=== PATIENT | male | born 1950 | race Caucasian/White ===

== ENCOUNTER 2017-10-13 10:38 | Day surgery (SDC) | payer MEDICARE ==
[2017-10-11 15:34] VITALS: BMI 32.3
[~2017-10-13 10:38] MED LIST: LACTATED RINGERS 1,000 ML IV SCH
[2017-10-13 11:59] VITALS: TEMP 97
[2017-10-13] MEDS ORDERED: LIDOCAINE 1% 20 ML VIAL (10MG/ML) FOR IV START INTRADERMA ONE (12:12)
[2017-10-13] MEDS ORDERED: LIDOCAINE 1% INJ 10MG/ML (20 ML MDV) ONE (12:38)
[2017-10-13] MEDS ORDERED: GLYCOPYRROLATE 0.2 MG/ML 2 ML VIAL ONE (12:38)
[2017-10-13] MEDS ORDERED: PROPOFOL 10 MG/ML 20 ML VIAL IV ONE (12:38)
--- NOTE | 2017-10-13 13:05 | P.PCN ---
Date of Procedure: 10/13/17 Procedure(s) Performed: BRIEF HISTORY: Patient is a 66-year-old pleasant white male, scheduled for an elective colonoscopy as a part of surveillance of long-standing history of ulcerative colitis. He is maintained on CIMZIA and continues to remain in clinical remission. PROCEDURE PERFORMED: Colonoscopy with random biopsies. PREOPERATIVE DIAGNOSIS: History of ulcerative colitis. IV sedation per Anesthesia. PROCEDURE: After informed consent was obtained, the patient, was brought into the endoscopy unit. IV sedation was administered by Anesthesia under continuous monitoring. Digital rectal examination was normal. Initially the Olympus CF- 160 flexible video colonoscope was then inserted in the rectum, gradually advanced into the cecum without any difficulty. Careful examination was performed as the scope was gradually being withdrawn. Ileocecal valve and the appendiceal orifice were visualized and appeared normal. Prep was excellent. Mucosa of the cecum, ascending colon, transverse colon, descending colon, sigmoid colon, and rectum appeared normal. Random biopsies were done from the cecum to rectum at every at 10 cm intervals. Retroflexion was performed in the rectum and no lesions were seen. The patient tolerated the procedure well. IMPRESSION: Normal-appearing colon from rectum to cecum with no evidence of active colitis or colorectal neoplasia . RECOMMENDATIONS: Findings of this examination were discussed with the patient as well as his family. He was advised to follow with the biopsy results. If the biopsy does not show any evidence of dysplasia, he can have a repeat colonoscopy in 2 years..
[2017-10-13 13:44] VITALS: BP 126/82; PULSE 52; RESP 18
== END 2017-10-13 14:06 | disposition home or self-care (01) ==
LOC: ORWHC2ENDO 10:38
PROVIDERS: ATTEND Internal Medicine Gastroenterology
DX: K51.90 Ulcerative colitis, unspecified, without complications (principal); Z79.899 Other long term (current) drug therapy
CPT/HCPCS: 88305; 45380; J2001; J2704

== ENCOUNTER → 2018-03-06 | Outpatient (CLI) | payer MEDICARE | END | disposition home or self-care (01) | LOC: LABWHC1 15:22 | PROVIDERS: ATTEND Urology | DX: N40.1 Benign prostatic hyperplasia with lower urinary tract symptoms (principal) | CPT/HCPCS: 36415; 84153 ==

== ENCOUNTER 2018-12-05 13:40 | Inpatient (IN) | payer MEDICARE, OTHER ==
[2018-12-05] MEDS ORDERED: SODIUM CHLORIDE 0.9% 500 ML 500 ML IV STA (13:45)
[2018-12-05 13:48] LABS: Glucose,Whole Blood 119 mg/dL (75-99)
--- NOTE | 2018-12-05 13:52 | ED ---
General Adult HPI - General Stated complaint: Fall Time Seen by Provider: 12/05/18 13:40 Source: RN notes reviewed - History of Present Illness Initial comments: This is a 68-year-old male who presents emergency Department after he fell through a 10 foot ceiling. Patient landed on some debris on a hard floor according to the patient he landed on his back he complains of right sided back and rib pain he also complains of right-sided abdominal pain. Patient does not believe he hit his head he denies any loss of consciousness or being days per patient currently does not complain of any neck pain. Patient also complains of left knee pain. Patient does not complain of any hip pain. Patient does not complain of back pain but posterior rib pain on the right. - Related Data Home Medications Medication Instructions Recorded Confirmed Allopurinol [Zyloprim] 300 mg PO DAILY 10/14/15 10/11/17 Baclofen [Lioresal] 10 mg PO TID 10/14/15 10/11/17 Calcium Carbonate [Calcium] 1,000 mg PO DAILY 10/14/15 10/11/17 Doxazosin Mesylate [Cardura] 4 mg PO BID 10/14/15 10/11/17 Ferrous Sulfate [Feosol] 65 mg PO DAILY 10/14/15 10/11/17 Folic Acid 1 mg PO DAILY 10/14/15 10/11/17 Glucosam/Tim-Msm1/C/Harish/Bosw 1 each PO DAILY 10/14/15 10/11/17 [Glucosamine-Chondroitin Tablet] HYDROcodone/APAP 10-325MG [[place] 1 tab PO TID PRN 10/14/15 10/11/17 10-325] Methotrexate Sodium [Methotrexate] 20 mg PO MO 10/14/15 10/11/17 Morphine Sulfate ER [Ms Contin 60 mg PO Q12HR 10/14/15 10/11/17 60Mg] Pregabalin [Lyrica] 200 mg PO BID 10/14/15 10/11/17 Ramipril 10 mg PO 1800 10/14/15 10/11/17 Simvastatin [Zocor] 80 mg PO HS 10/14/15 10/11/17 azaTHIOprine [Imuran] 50 mg PO DAILY 10/14/15 10/11/17 clonazePAM [KlonoPIN] 4 mg PO TID 10/14/15 10/11/17 rOPINIRole HCL [Requip] 4 mg PO HS 10/14/15 10/11/17 Certolizumab Pegol [Cimzia] 400 mg SQ Q30D 06/22/16 10/11/17 Previous Rx's Medication Instructions Recorded Amoxicillin/Potassium Clav 1 each PO Q12HR #20 tab 06/23/16 [Augmentin 875-125 Tablet] Allergies Allergy/AdvReac Type Severity Reaction Status Date / Time No Known Allergies Allergy Verified 12/05/18 13:50 Review of Systems ROS Statement: Those systems with pertinent positive or pertinent negative responses have been documented in the HPI. ROS Other: All systems not noted in ROS Statement are negative. 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 STEROID INJECTION KNEES LAST WEEK. COLONOSCOPY Past Anesthesia/Blood Transfusion Reactions: No Reported Reaction Past Psychological History: No Psychological Hx Reported Smoking Status: Current every day smoker Past Alcohol Use History: Daily Additional Past Alcohol Use History / Comment(s): 1 cigars daily-smoking for approx 6 mos. smoked approx <1 ppd from age 20 to age 40. 1 glass of wine daily Past Drug Use History: Marijuana Additional Drug Use History / Comment(s): Medical Marijuana card-last useD 10/10/17,uses approx 2-3 times per mos. INSTRUCTED TO REFRAIN FROM USE FOR AT LEAST 24 HOURS PRIOR TO PROCEDURE - Past Family History Mother Family Medical History: No Reported History Father Family Medical History: Myocardial Infarction (ID) General Exam - General Exam Comments Initial Comments: GENERAL: Patient is well-developed and well-nourished. Patient is nontoxic and well- hydrated and is in moderate distress. ENT: Neck is soft and supple. No significant lymphadenopathy is noted. Oropharynx is clear. Moist mucous membranes. Patient was in a C-spine are cautions EYES: The sclera were anicteric and conjunctiva were pink and moist. Extraocular movements were intact and pupils were equal round and reactive to light. Eyelids were unremarkable. PULMONARY: Unlabored respirations. Good breath sounds bilaterally. No audible rales rhonchi or wheezing was noted. CARDIOVASCULAR: Patient has a regular rate and rhythm. Patient has significant tenderness to the right lateral rib cage. Patient also has tenderness to the posterior rib cage on the right. ABDOMEN: Patient has right sided abdominal pain and right upper quadrant abdominal pain. SKIN: Skin is clear with no lesions or rashes and otherwise unremarkable. NEUROLOGIC: Patient is alert and oriented x3. Cranial nerves II through XII are grossly intact. Motor and sensory are also intact. Normal speech, volume and content. Symmetrical smile. MUSCULOSKELETAL: Patient has full range of motion of the upper extremities in the right lower extremity however patient has an effusion of the left knee and tenderness on palpation and movement. LYMPHATICS: No significant lymphadenopathy is noted PSYCHIATRIC: Normal psychiatric evaluation. Course Vital Signs 12/05/18 13:47 Temperature 98.2 F Pulse Rate 88 Respiratory 22 Rate Blood Pressure 114/77 O2 Sat by Pulse 92 L Oximetry Medical Decision Making - Medical Decision Making This was called as a green party to trauma because of mechanism and patient presentation. I spoke with Dr. Gambino shortly after I saw the patient. EKG shows sinus rhythm with occasional PVC at 89 bpm RI interval is 172 QRS is under QT interval 394 QTC is 479 per patient's EKG shows no ST segment elevation or depression. CT of the head and neck showed no acute abnormality. CT of the chest abdomen pelvis shows a right ninth rib fracture as well as a sternal slightly displaced fracture. Knee x-ray shows a distal medial femur fracture with no displacement. Patient's x-ray also shows large effusion - Lab Data Result diagrams: 12/05/18 14:20 12/05/18 14:50 Lab Results 12/05/18 12/05/18 12/05/18 Range/Units 13:47 14:20 14:20 WBC 7.6 (3.8-10.6) k/uL RBC 3.79 L (4.30-5.90) m/uL Hgb 12.6 L (13.0-17.5) gm/dL Hct 37.5 L (39.0-53.0) % MCV 99.1 (80.0-100.0) fL MCH 33.3 (25.0-35.0) pg MCHC 33.7 (31.0-37.0) g/dL RDW 17.0 H (11.5-15.5) % Plt Count 148 L (150-450) k/uL Neutrophils % 84 % Lymphocytes % 10 % Monocytes % 4 % Eosinophils % 1 % Basophils % 0 % Neutrophils # 6.4 (1.3-7.7) k/uL Lymphocytes # 0.8 L (1.0-4.8) k/uL Monocytes # 0.3 (0-1.0) k/uL Eosinophils # 0.1 (0-0.7) k/uL Basophils # 0.0 (0-0.2) k/uL Poikilocytosis Slight Anisocytosis Slight Macrocytosis Slight PT (9.0-12.0) sec INR (<1.2) APTT (22.0-30.0) sec Sodium (137-145) mmol/L Potassium (3.5-5.1) mmol/L Chloride (98-107) mmol/L Carbon Dioxide (22-30) mmol/L Anion Gap mmol/L BUN (9-20) mg/dL Creatinine (0.66-1.25) mg/dL Est GFR (CKD-EPI)AfAm (>60 ml/min/1.73 sqM) Est GFR (CKD-EPI)NonAf (>60 ml/min/1.73 sqM) Glucose (74-99) mg/dL POC Glucose (mg/dL) 119 H (75-99) mg/dL POC Glu Chief Nurse Executive ID Yasemin Silva Calcium (8.4-10.2) mg/dL Total Bilirubin (0.2-1.3) mg/dL AST (17-59) U/L ALT (21-72) U/L Alkaline Phosphatase (38-126) U/L Troponin I (0.000-0.034) ng/mL Total Protein (6.3-8.2) g/dL Albumin (3.5-5.0) g/dL Serum Alcohol mg/dL Blood Type B Positive Blood Type Recheck No Antibody Screen NEGATIVE Spec Expiration Date 12/08/2018 - 231912/05/18 12/05/18 12/05/18 Range/Units 14:48 14:50 14:50 WBC (3.8-10.6) k/uL RBC (4.30-5.90) m/uL Hgb (13.0-17.5) gm/dL Hct (39.0-53.0) % MCV (80.0-100.0) fL MCH (25.0-35.0) pg MCHC (31.0-37.0) g/dL RDW (11.5-15.5) % Plt Count (150-450) k/uL Neutrophils % % Lymphocytes % % Monocytes % % Eosinophils % % Basophils % % Neutrophils # (1.3-7.7) k/uL Lymphocytes # (1.0-4.8) k/uL Monocytes # (0-1.0) k/uL Eosinophils # (0-0.7) k/uL Basophils # (0-0.2) k/uL Poikilocytosis Anisocytosis Macrocytosis PT 10.7 (9.0-12.0) sec INR 1.0 (<1.2) APTT 23.6 (22.0-30.0) sec Sodium 140 (137-145) mmol/L Potassium 4.0 (3.5-5.1) mmol/L Chloride 104 (98-107) mmol/L Carbon Dioxide 28 (22-30) mmol/L Anion Gap 8 mmol/L BUN 15 (9-20) mg/dL Creatinine 0.66 (0.66-1.25) mg/dL Est GFR (CKD-EPI)AfAm >90 (>60 ml/min/1.73 sqM) Est GFR (CKD-EPI)NonAf >90 (>60 ml/min/1.73 sqM) Glucose 116 H (74-99) mg/dL POC Glucose (mg/dL) (75-99) mg/dL POC Glu Chief Nurse Executive ID Calcium 9.6 (8.4-10.2) mg/dL Total Bilirubin 0.8 (0.2-1.3) mg/dL AST 27 (17-59) U/L ALT 30 (21-72) U/L Alkaline Phosphatase 65 (38-126) U/L Troponin I <0.012 (0.000-0.034) ng/mL Total Protein 6.8 (6.3-8.2) g/dL Albumin 4.3 (3.5-5.0) g/dL Serum Alcohol <10 mg/dL Blood Type Blood Type Recheck Antibody Screen Spec Expiration Date Critical Care Time Critical Care Time: Yes Total Critical Care Time: 35 Disposition Clinical Impression: Sternum fx, Rib fracture, Fracture of distal end of left femur Disposition: ADMITTED IP TO THIS HOSP Time of Disposition: 15:33
--- NOTE | 2018-12-05 14:09 | XR ---
EXAMINATION TYPE: XR pelvis AP view DATE OF EXAM: 12/05/2018 CLINICAL HISTORY: Trauma fall injury with pain. TECHNIQUE: A single AP view of the pelvis is obtained. COMPARISON: None. FINDINGS: Exam noted suboptimal due to patient's large body habitus. There is no acute fracture/disl ocation evident in the pelvis. There is mild to moderate axial joint space loss in both hips. There i s some symmetric narrowing and sclerosis in both sacroiliac joints. There is partial visualization of overlying stimulator or pain device left lower quadrant . The overlying soft tissue appears unremark able. IMPRESSION: There is no acute fracture or dislocation in the pelvis.
--- NOTE | 2018-12-05 14:13 | XR ---
EXAMINATION TYPE: XR chest 1V portable DATE OF EXAM: 12/05/2018 COMPARISON: 02/28/2008 INDICATION: Trauma, fall TECHNIQUE: Single frontal view of the chest is obtained. FINDINGS: The heart size is mildly prominent. The pulmonary vasculature is prominent. The lungs are clear. Stimulator leads in the midline. No acute fractures are evident. No pneumothorax is evident. IMPRESSION: 1. Mild cardiomegaly with prominent vascular markings. 2. No acute posttraumatic changes.
--- NOTE | 2018-12-05 14:34 | CT ---
EXAMINATION TYPE: CT brain liuine wo con DATE OF EXAM: 12/05/2018 COMPARISON: NONE HISTORY: 10ft fall injury with headache and neck pain. CT DLP: 1666.9 mGycm. Automated Exposure Control for Dose Reduction was Utilized. TECHNIQUE: CT scan of the head and cervical spine are performed without contrast. FINDINGS: There is no acute intracranial hemorrhage or midline shift identified. There is ventricul ar and sulcal prominence. There is some prominence of CSF anterolateral right temporal region could r eflect arachnoid cyst coronal image 26 measuring roughly 4.5 x 1.5 cm. The calvarium is intact. Paran robby sinuses are clear. Mild mucosal thickening involving ethmoid sinuses bilaterally is present. Rem ainder paranasal sinuses are clear. Cervical spine is visualized in its entirety from C1 through upper thoracic levels and demonstrates f etal convex scoliotic curvature centered in the upper thoracic spine. Osseous structures are deminer alized. No acute fracture or dislocation is seen. Prevertebral soft tissue appears within normal limi ts. The C1-C2 articulation is within normal limits on the coronal images. Vertebral body heights are maintained. There is mild to moderate disc space narrowing C4-C5 and C5-C6 levels. Review of axial images shows multilevel uncovertebral facet degenerative changes causing mul tilevel neural foraminal narrowing for reference left C2-C3 level axial image 39 and bilateral C4-C5 level axial image 56. Additional levels are present. Thyroid gland is normal in size. Mild calcified plaque right carotid bulb is present. IMPRESSION: 1. There is no acute fracture or dislocation evident in the cervical spine. 2. No acute intracranial hemorrhage or midline shift is seen. There is moderate diffuse cerebral atro phy with probable lateral right arachnoid cyst incidentally noted.
[2018-12-05] MEDS ORDERED: HYDROmorphone 1 MG/ML 1 ML SYRINGE IVP STA (14:38)
[2018-12-05] MEDS ORDERED: ONDANSETRON 4 MG/2 ML VIAL IVP STA (14:38)
--- NOTE | 2018-12-05 14:52 | CT ---
EXAMINATION TYPE: CT ChestAbdPelvis w con DATE OF EXAM: 12/05/2018 COMPARISON: None. HISTORY: 10ft fall injury. CT DLP: 1611.4 mGycm. Automated Exposure Control for Dose Reduction was Utilized. CONTRAST: CT scan of the thorax, abdomen and pelvis is performed with IV Contrast, patient injected with 100 mL of Isovue 300. FINDINGS: Exam suboptimal due to streak artifact from bilateral upper extremities placed adjacent to patient. LUNGS: Dependent atelectasis bilateral lower lobes is present. No suspicious focal consolidation is s een. No suspicious masses are present. No pleural effusion or pneumothorax is noted. MEDIASTINUM: There are no greater than 1 cm hilar or mediastinal lymph nodes. No cardiomegaly or pe ricardial effusion is seen. There is moderate right atrial dilatation. There is 1 cm fat density les ion near level of the pericardium at level of left ventricle axial image 42 of uncertain etiology or significance LIVER/GB: There is 2.7 cm low dense round lesion right hepatic lobe near gallbladder fossa axial imag e 70 that shows some nodular peripheral enhancement. Suspect hemangioma. Liver laceration would be ex pected to have more irregular linear orientation. PANCREAS: No significant abnormality is seen. SPLEEN: No significant abnormality is seen. ADRENALS: No significant abnormality is seen. KIDNEYS: There is 3.9 cm low dense lesion laterally upper pole level right kidney with dependent calc ification approximate 75 Hounsfield units average 39. Suspect thin-walled cyst with dependent milk of calcium, solid lesion not entirely excluded. Follow-up advised. There is bilateral nephrolithiasis w ith 2 large calculi lower pole level right kidney coronal image 55 and 4-5 scattered calculi througho ut the left kidney. There is additional large calculus upper pole right kidney coronal image 74. Calc yash measure between 5 to 10 mm on long axis. No hydronephrosis is evident bilaterally. There is extra renal pelvis on the left noted. BOWEL: No significant abnormality is seen. GENITAL ORGANS: Prostate gland is enlarged in size bulging on bladder base, underlying BPH is felt pr esent.. LYMPH NODES: No greater than 1cm abdominal or pelvic lymph nodes are appreciated. OSSEOUS STRUCTURES: Osseous structures are demineralized. There is moderate narrowing of both hip rasheed nts. There is moderate multilevel spurring in the thoracolumbar spine. There is severe disc space sara rowing with endplate sclerosis L5-S1 level. There is suspected acute minimally displaced comminuted fracture through the sternal manubrium with s ome posterior indentation of the anterior wall seen best sagittal image 90, irregular fracture lines are seen best on coronal image 34. Posterior wall is fairly well maintained on sagittal images. Aguilar oclavicular joints are maintained. No suspicious adjacent hematoma at this time into the mediastinum. There is additional acute minimally displaced fracture through the lateral right ninth rib axial imag e 53. OTHER: There is large fat-containing right inguinal hernia and small to moderate sized fat-containing left inguinal hernia there is moderate calcified plaque of the abdominal aorta extending into iliac branch vessels. There is stimulator type device in the anterior left mid abdominal wall. There is add itional stimulator device in the posterior left lateral thoracic wall with leads terminating in the p osterior mid thoracic spinal canal. IMPRESSION: There is comminuted minimally displaced fracture through the sternal manubrium. No adjac ent hematoma. There is acute minimally displaced fracture through right lateral ninth rib. No adjacen t liver laceration clearly seen. Case discussed with ordering ER physician via telephone at time of dictation.
[2018-12-05 15:08] LABS: Anisocytosis Slight; Basophils % (A) 0 %; Eosinophils # (A) 0.1 k/uL (0-0.7); Eosinophils % (A) 1 %; HCT 37.5 % (39.0-53.0); HGB 12.6 gm/dL (13.0-17.5); Lymphocytes # (A) 0.8 k/uL (1.0-4.8); Lymphocytes % (A) 10 %; MCH 33.3 pg (25.0-35.0); MCHC 33.7 g/dL (31.0-37.0); MCV 99.1 fL (80.0-100.0); Macrocytosis Slight; Mean Platelet Volume 9.4; Monocytes # (A) 0.3 k/uL (0-1.0); Monocytes % (A) 4 %; Neutrophils # (A) 6.4 k/uL (1.3-7.7); Neutrophils % (A) 84 %; Platelet Count 148 k/uL (150-450); Poikilocytosis Slight; RBC 3.79 m/uL (4.30-5.90); WBC 7.6 k/uL (3.8-10.6)
[2018-12-05 15:12] LABS: ALT 30 U/L (21-72); AST 27 U/L (17-59); Albumin 4.3 g/dL (3.5-5.0); Alcohol <10 mg/dL; Alkaline Phosphatase 65 U/L (38-126); Anion Gap 8 mmol/L; Blood Urea Nitrogen 15 mg/dL (9-20); Calcium 9.6 mg/dL (8.4-10.2); Carbon Dioxide 28 mmol/L (22-30); Chloride 104 mmol/L (98-107); Glucose 116 mg/dL (74-99); Sodium 140 mmol/L (137-145); Total Bilirubin 0.8 mg/dL (0.2-1.3); Total Protein 6.8 g/dL (6.3-8.2)
--- NOTE | 2018-12-05 15:18 | XR ---
EXAMINATION TYPE: XR knee complete LT DATE OF EXAM: 12/05/2018 CLINICAL HISTORY: Pain after fall injury today. TECHNIQUE: Three views of the left knee are obtained. COMPARISON: None. FINDINGS: There is no acute fracture/dislocation evident in left knee. There is mild to moderate tri compartment joint space loss and spurring most prominent medial tibiofemoral compartment. In the prox imal tibial metaphysis medially there is lytic lesion with well-defined sclerotic margins measuring 2 .5 cm long axis favoring nonaggressive etiology such as enchondroma. Focal point tenderness at this level should be excluded to determine if further imaging workup or follow-up is necessary. Increased density suprapatellar bursa is consistent with large joint effusion. IMPRESSION: As above.
[2018-12-05 15:20] LABS: Partial Thromboplastin Time 23.6 sec (22.0-30.0); Prothrombin Time 10.7 sec (9.0-12.0)
[2018-12-05] MEDS ORDERED: SODIUM CHLORIDE 0.9% 1,000 ML IV ONE ×2 (15:23→15:33)
[2018-12-05] MEDS ORDERED: HYDROmorphone 0.5 MG/0.5 ML SYRINGE IVP STA (15:23)
[2018-12-05] MEDS ORDERED: ONDANSETRON 4 MG/2 ML VIAL IVP PRN (15:36)
--- NOTE | 2018-12-05 16:24 | P.GSCN ---
<Anika Moreira - Last Filed: 12/05/18 16:04> History of Present Illness Consult date: 12/05/18 Reason for Consult: Sternal fracture after fall, surgical recommendations Requesting physician: Everardo Cortez History of present illness: This is a 68 year old active male patient who follows on an outpatient basis with Dr. Thomas. 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 Apparently he fell earlier today from a 10 flat sealing and landed on his back. He denies any loss of consciousness. He was complains of right-sided back and rib pain. He presented to [facility] for evaluation and treatment. Chest x-ray was completed demonstrating no acute process. Computed tomography scan of the chest abdomen and pelvis was completed demonstrating a comminuted minimally displaced fracture in the sternal manubrium without adjacent hematoma, and fracture of the right ninth rib. Due to these findings a consultation was placed for Dr. Ugarte from cardiothoracic surgery for surgical recommendations. Review of Systems Review of systems was completed and was negative except as noted. 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 STEROID INJECTION KNEES LAST WEEK. COLONOSCOPY Past Anesthesia/Blood Transfusion Reactions: No Reported Reaction Past Psychological History: No Psychological Hx Reported Smoking Status: Current every day smoker Past Alcohol Use History: Daily Additional Past Alcohol Use History / Comment(s): 1 cigars daily-smoking for approx 6 mos. smoked approx <1 ppd from age 20 to age 40. 1 glass of wine daily Past Drug Use History: Marijuana Additional Drug Use History / Comment(s): Medical Marijuana card-last useD 10/10/17,uses approx 2-3 times per mos. INSTRUCTED TO REFRAIN FROM USE FOR AT LEAST 24 HOURS PRIOR TO PROCEDURE - Past Family History Mother Family Medical History: No Reported History Father Family Medical History: Myocardial Infarction ([place]) Medications and Allergies Home Medications Medication Instructions Recorded Confirmed Type Allopurinol [Zyloprim] 300 mg PO DAILY 10/14/15 12/05/18 History Doxazosin Mesylate [Cardura] 4 mg PO BID 10/14/15 12/05/18 History Ferrous Sulfate [Iron (65 MG 325 mg PO DAILY 10/14/15 12/05/18 History Elemental)] Folic Acid 1 mg PO DAILY 10/14/15 12/05/18 History Methotrexate Sodium [Methotrexate] 20 mg PO MO 10/14/15 12/05/18 History Ramipril 10 mg PO HS 10/14/15 12/05/18 History Simvastatin [Zocor] 80 mg PO HS 10/14/15 12/05/18 History azaTHIOprine [Imuran] 50 mg PO DAILY 10/14/15 12/05/18 History rOPINIRole HCL [Requip] 4 mg PO HS 10/14/15 12/05/18 History Baclofen [Lioresal] 20 mg PO TID 12/05/18 12/05/18 History Calcium 1000mg 1,000 mg PO DAILY 12/05/18 12/05/18 History Gabapentin [Neurontin] 300 mg PO TID 12/05/18 12/05/18 History Cholecalciferol [Vitamin D3] 1,000 unit PO DAILY@1200 tab 12/12/18 Rx Docusate [Colace] 100 mg PO BID cap 12/12/18 Rx HYDROcodone/APAP 10-325MG [[place] 1 tab PO TID PRN #9 tab 12/12/18 Rx 10-325] Magnesium Hydroxide [Milk of 2,400 mg PO BID ml 12/12/18 Rx Magnesia Concentrate] Polyethylene Glycol 3350 [Miralax] 17 gm PO DAILY powd.pack 12/12/18 Rx clonazePAM [KlonoPIN] 4 mg PO TID #18 tablet 12/12/18 Rx predniSONE 60 mg PO DAILY 7 Days tab 12/12/18 Rx Allergies Allergy/AdvReac Type Severity Reaction Status Date / Time No Known Allergies Allergy Verified 12/05/18 16:20 Surgical - Exam Vital Signs Temp Pulse Resp BP Pulse Ox 98.2 F 88 22 114/77 92 L 12/05/18 13:47 12/05/18 13:47 12/05/18 13:47 12/05/18 13:47 12/05/18 13:47 - General well developed, well nourished, moderate pain, obese - Eyes PERRL, normal ocular movement - ENT no hearing loss - Neck no masses, no bruits, trachea midline - Respiratory Lungs sounds clear bilaterally. Respirations even, slightly tachypneic. Currently on 2 L nasal cannula with oxygen saturation 92%. - Cardiovascular Tachycardic, sinus tach on telemetry. Palpable peripheral pulses bilaterally. No edema present. Rhythm: regular Heart Sounds: normal: S1, S2 - Abdomen Abdomen: soft, non tender, bowel sounds - Genitourinary Deferred - Rectum Deferred - Integumentary no rash, no growths - Neurologic normal coordination, normal sensation - Musculoskeletal normal posture - Psychiatric oriented to time, oriented to person, oriented to place, speech is normal, memory intact Results - Labs 12/05/18 14:20 12/05/18 14:50 Abnormal Lab Results - Last 24 Hours (Table) 12/05/18 12/05/18 12/05/18 Range/Units 13:47 14:20 14:50 RBC 3.79 L (4.30-5.90) m/uL Hgb 12.6 L (13.0-17.5) gm/dL Hct 37.5 L (39.0-53.0) % RDW 17.0 H (11.5-15.5) % Plt Count 148 L (150-450) k/uL Lymphocytes # 0.8 L (1.0-4.8) k/uL Glucose 116 H (74-99) mg/dL POC Glucose (mg/dL) 119 H (75-99) mg/dL Diabetes panel 12/05/18 Range/Units 14:50 Sodium 140 (137-145) mmol/L Potassium 4.0 (3.5-5.1) mmol/L Chloride 104 (98-107) mmol/L Carbon Dioxide 28 (22-30) mmol/L BUN 15 (9-20) mg/dL Creatinine 0.66 (0.66-1.25) mg/dL Glucose 116 H (74-99) mg/dL Calcium 9.6 (8.4-10.2) mg/dL AST 27 (17-59) U/L ALT 30 (21-72) U/L Alkaline Phosphatase 65 (38-126) U/L Total Protein 6.8 (6.3-8.2) g/dL Albumin 4.3 (3.5-5.0) g/dL Calcium panel 12/05/18 Range/Units 14:50 Calcium 9.6 (8.4-10.2) mg/dL Albumin 4.3 (3.5-5.0) g/dL Pituitary panel 12/05/18 Range/Units 14:50 Sodium 140 (137-145) mmol/L Potassium 4.0 (3.5-5.1) mmol/L Chloride 104 (98-107) mmol/L Carbon Dioxide 28 (22-30) mmol/L BUN 15 (9-20) mg/dL Creatinine 0.66 (0.66-1.25) mg/dL Glucose 116 H (74-99) mg/dL Calcium 9.6 (8.4-10.2) mg/dL Adrenal panel 12/05/18 Range/Units 14:50 Sodium 140 (137-145) mmol/L Potassium 4.0 (3.5-5.1) mmol/L Chloride 104 (98-107) mmol/L Carbon Dioxide 28 (22-30) mmol/L BUN 15 (9-20) mg/dL Creatinine 0.66 (0.66-1.25) mg/dL Glucose 116 H (74-99) mg/dL Calcium 9.6 (8.4-10.2) mg/dL Total Bilirubin 0.8 (0.2-1.3) mg/dL AST 27 (17-59) U/L ALT 30 (21-72) U/L Alkaline Phosphatase 65 (38-126) U/L Total Protein 6.8 (6.3-8.2) g/dL Albumin 4.3 (3.5-5.0) g/dL - Imaging Chest x-ray: report reviewed, image reviewed CT scan - chest: report reviewed, image reviewed EKG: image reviewed Assessment and Plan Assessment: 1. Sternal fracture after fall 2. Chronic back pain with implanted pain stimulator 3. Nerve damage from electrocution and 2008 4. History of hyperlipidemia 5. History of hypertension 6. Rheumatoid arthritis 7. Obstructive sleep apnea on CPAP use 8. Current tobacco dependence 9. Daily wine drinker 10. Occasional marijuana use Plan: The patient was seen and examined in the emergency room with Dr. Ugarte. Chart/diagnostics reviewed in detail. At this time we recommend no surgical treatment for sternal fracture, just monitoring. Pain control per primary care service. Would recommend incentive spirometry use. Increase activity as tolerated. Continued medical management of other comorbid conditions per primary care service. Will see on an as-needed basis. Thank you Dr. Cortez for this consult. Please call us with any further questions. Time with Patient: Greater than 30 <William Ugarte - Last Filed: 12/14/18 16:37> Surgical - Exam Vital Signs Temp Pulse Resp BP Pulse Ox 98.2 F 88 22 114/77 92 L 12/05/18 13:47 12/05/18 13:47 12/05/18 13:47 12/05/18 13:47 12/05/18 13:47 Results - Labs 12/10/18 07:55 12/10/18 07:55 Assessment and Plan Plan: The patient was seen and examined. The history and physical findings were verified. I agree with the above assessment and plan. The patient is a 68 year old male who was brought to the ED today s/p fall from about 10 feet. He states that he landed on his back, but CT of the chest reveals a minimally displaced fracture of the sternum along with a 9th rib fracture. There is no associated mediastinal hematoma or pneumothorax. He appears to be hemodynamically stable though he does complain of pain in his back as well as the back of his head. At this point, there is no indication for surgical intervention on my part. Recommend pain control and pulmonary toilet. Please feel free to call me with any questions.
[2018-12-05] MEDS: HYDROmorphone 0.5 MG/0.5 ML SYRINGE IVP PRN (17:10)
[2018-12-05] MEDS ORDERED: IBUPROFEN 600 MG TAB PO STA (18:50)
[2018-12-05] MEDS ORDERED: ACETAMINOPHEN TAB 500 MG TAB PO STA (18:50)
[2018-12-05 20:20] LABS: Appearance,Urine Clear (Clear); Bilirubin,Urine Negative (Negative); Blood,Urine Negative (Negative); Color,Urine Yellow; Glucose,Urine (UA) Negative (Negative); Ketones,Urine Negative (Negative); Leukocyte Esterase,Urine Negative (Negative); Nitrite,Urine Negative (Negative); Protein,Urine Negative (Negative); Urobilinogen,Urine <2.0 mg/dL (<2.0)
[2018-12-05 20:31] LABS: Amphetamine Screen,Urine Not Detected (NotDetected); Barbiturate Screen,Urine Not Detected (NotDetected); Benzodiazepines Screen,Urine Detected (NotDetected); Cocaine Screen,Urine Not Detected (NotDetected); Methadone Screen, Urine Not Detected (NotDetected); Opiate Screen,Urine Detected (NotDetected); Oxycodone Screen, Urine Not Detected (NotDetected); Phencyclidine Screen,Urine Not Detected (NotDetected); Tricyclic Antidepressant,Urine Not Detected (NotDetected); Urn Cannabinoid Scrn Detected (NotDetected)
--- NOTE | 2018-12-05 20:40 | P.GSHP ---
History of Present Illness H&P Date: 12/05/18 Chief Complaint: Fall with rib fracture and sternal fracture Patient hospitalized after falling approximately 8 feet off of a ladder. Patient presents to the ER complaining of pain in his back left knee and sternal region. Patient denies loss of consciousness. He also has mild discomfort at the site of a hematoma involving the right parietal scalp. Patient has a underl luis history of obesity hyperlipidemia hypertension arthritis ulcerative colitis and chronic pain. Patient takes multiple home medications including chronic narcotic use. Workup includes CAT scan brain and C-spine, CAT scan and chest abdomen and pelvis, chest x-ray, pelvis x-ray. Injuries again includes sternal fracture, right ninth rib fracture, parietal hematoma, possible left femur fracture. He has already been evaluated by thoracic surgery. No surgical intervention for the sternal fracture advise at this time. Patient did have a fever while he was in the ER admits to having cough and upper respiratory symptoms for the last 48 hours or so. 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 STER OID INJECTION KNEES LAST WEEK. COLONOSCOPY Past Anesthesia/Blood Transfusion Reactions: No Reported Reaction Past Psychological History: No Psychological Hx Reported Smoking Status: Current every day smoker Past Alcohol Use History: Daily Additional Past Alcohol Use History / Comment(s): 1 cigars daily-smoking for approx 6 mos. smoked approx <1 ppd from age 20 to age 40. 1 glass of wine daily Past Drug Use History: Marijuana Additional Drug Use History / Comment(s): Medical Marijuana card-last useD 10/10/17,uses approx 2-3 times per mos. INSTRUCTED TO REFRAIN FROM USE FOR AT LEAST 24 HOURS PRIOR TO PROCEDURE - Past Family History Mother Family Medical History: No Reported History Father Family Medical History: Myocardial Infarction ([place]) Medications and Allergies Home Medications Medication Instructions Recorded Confirmed Type Allopurinol [Zyloprim] 300 mg PO DAILY 10/14/15 12/05/18 History Doxazosin Mesylate [Cardura] 4 mg PO BID 10/14/15 12/05/18 History Ferrous Sulfate [Feosol] 325 mg PO DAILY 10/14/15 12/05/18 History Folic Acid 1 mg PO DAILY 10/14/15 12/05/18 History Glucosam/Tim-Msm1/C/Harish/Bosw 1 tab PO DAILY 10/14/15 12/05/18 History [Glucosamine-Chondroitin Tablet] HYDROcodone/APAP 10-325MG [[place] 1 tab PO TID PRN 10/14/15 12/05/18 History 10-325] Methotrexate Sodium [Methotrexate] 20 mg PO MO 10/14/15 12/05/18 History Morphine Sulfate ER [Ms Contin 60 mg PO Q12HR 10/14/15 12/05/18 History 60Mg] Ramipril 10 mg PO HS 10/14/15 12/05/18 History Simvastatin [Zocor] 80 mg PO HS 10/14/15 12/05/18 History azaTHIOprine [Imuran] 50 mg PO DAILY 10/14/15 12/05/18 History clonazePAM [KlonoPIN] 4 mg PO TID 10/14/15 12/05/18 History rOPINIRole HCL [Requip] 4 mg PO HS 10/14/15 12/05/18 History Certolizumab Pegol [Cimzia] 400 mg SQ Q28D 06/22/16 12/05/18 History Baclofen [Lioresal] 20 mg PO TID 12/05/18 12/05/18 History Calcium 1000mg 1,000 mg PO DAILY 12/05/18 12/05/18 History Gabapentin [Neurontin] 300 mg PO TID 12/05/18 12/05/18 History Allergies Allergy/AdvReac Type Severity Reaction Status Date / Time No Known Allergies Allergy Verified 12/05/18 16:20 Surgical - Exam Vital Signs Temp Pulse Resp BP Pulse Ox 98.2 F 88 22 114/77 92 L 12/05/18 13:47 12/05/18 13:47 12/05/18 13:47 12/05/18 13:47 12/05/18 13:47 Physical exam: General: Well-developed, well-nourished HEENT: Small hematoma involving the right posterior parietal region, sclerae nonicteric, trachea midline, no abrasions Chest: Tenderness involving the sternum and right posterior chest wall, no crepitus Abdomen: Nontender, nondistended, pain pump noted Extremities: Left knee immobilizer in place, distal pulses present, abrasions left arm Neuro: Alert and oriented Results - Labs 12/05/18 14:20 12/05/18 14:50 Abnormal Lab Results - Last 24 Hours (Table) 12/05/18 12/05/18 12/05/18 Range/Units 13:47 14:20 14:50 RBC 3.79 L (4.30-5.90) m/uL Hgb 12.6 L (13.0-17.5) gm/dL Hct 37.5 L (39.0-53.0) % RDW 17.0 H (11.5-15.5) % Plt Count 148 L (150-450) k/uL Lymphocytes # 0.8 L (1.0-4.8) k/uL Glucose 116 H (74-99) mg/dL POC Glucose (mg/dL) 119 H (75-99) mg/dL Ur Specific [place] (1.001-1.035) Urine Opiates Screen (NotDetected) U Benzodiazepines Scrn (NotDetected) U Marijuana (THC) Screen (NotDetected) 12/05/18 Range/Units 20:10 RBC (4.30-5.90) m/uL Hgb (13.0-17.5) gm/dL Hct (39.0-53.0) % RDW (11.5-15.5) % Plt Count (150-450) k/uL Lymphocytes # (1.0-4.8) k/uL Glucose (74-99) mg/dL POC Glucose (mg/dL) (75-99) mg/dL Ur Specific [place] 1.050 H (1.001-1.035) Urine Opiates Screen Detected H (NotDetected) U Benzodiazepines Scrn Detected H (NotDetected) U Marijuana (THC) Screen Detected H (NotDetected) Diabetes panel 12/05/18 Range/Units 14:50 Sodium 140 (137-145) mmol/L Potassium 4.0 (3.5-5.1) mmol/L Chloride 104 (98-107) mmol/L Carbon Dioxide 28 (22-30) mmol/L BUN 15 (9-20) mg/dL Creatinine 0.66 (0.66-1.25) mg/dL Glucose 116 H (74-99) mg/dL Calcium 9.6 (8.4-10.2) mg/dL AST 27 (17-59) U/L ALT 30 (21-72) U/L Alkaline Phosphatase 65 (38-126) U/L Total Protein 6.8 (6.3-8.2) g/dL Albumin 4.3 (3.5-5.0) g/dL Calcium panel 12/05/18 Range/Units 14:50 Calcium 9.6 (8.4-10.2) mg/dL Albumin 4.3 (3.5-5.0) g/dL Pituitary panel 12/05/18 Range/Units 14:50 Sodium 140 (137-145) mmol/L Potassium 4.0 (3.5-5.1) mmol/L Chloride 104 (98-107) mmol/L Carbon Dioxide 28 (22-30) mmol/L BUN 15 (9-20) mg/dL Creatinine 0.66 (0.66-1.25) mg/dL Glucose 116 H (74-99) mg/dL Calcium 9.6 (8.4-10.2) mg/dL Adrenal panel 12/05/18 Range/Units 14:50 Sodium 140 (137-145) mmol/L Potassium 4.0 (3.5-5.1) mmol/L Chloride 104 (98-107) mmol/L Carbon Dioxide 28 (22-30) mmol/L BUN 15 (9-20) mg/dL Creatinine 0.66 (0.66-1.25) mg/dL Glucose 116 H (74-99) mg/dL Calcium 9.6 (8.4-10.2) mg/dL Total Bilirubin 0.8 (0.2-1.3) mg/dL AST 27 (17-59) U/L ALT 30 (21-72) U/L Alkaline Phosphatase 65 (38-126) U/L Total Protein 6.8 (6.3-8.2) g/dL Albumin 4.3 (3.5-5.0) g/dL Assessment and Plan (1) Sternum fx Narrative/Plan: 68-year-old male involved in a fall from 8 feet. Patient with fractures involving sternum, ribs, left femur. Await orthopedic evaluation. Resume diet. Pulmonary toilet with incentive spirometry. Repeat chest x-ray tomorrow. Monitor fevers. Will consult Dr. Thomas who is familiar with this patient. Current Visit: Yes Status: Acute Code(s): S22.20XA - UNSP FRACTURE OF STERNUM, INIT ENCNTR FOR CLOSED FRACTURE SNOMED Code(s): 92598671
[2018-12-05] MEDS: ATORVASTATIN 40 MG TAB PO SCH (22:45)
[2018-12-05] MEDS: DOXAZOSIN 4 MG TAB PO SCH (22:45)
[2018-12-05] MEDS: LISINOPRIL 20 MG TAB PO SCH (22:45)
[2018-12-05] MEDS: GABAPENTIN 300 MG CAP PO SCH (22:45)
[2018-12-05] MEDS: BACLOFEN 10 MG TAB PO SCH (22:46)
[2018-12-05] MEDS: FAMOTIDINE 20 MG/2 ML VIAL IV SCH (22:46)
[2018-12-05] MEDS: rOPINIRole HCL 4 MG TABLET PO SCH (22:46)
[2018-12-05] MEDS: azaTHIOprine 50 MG TAB PO SCH (22:46)
[2018-12-05] MEDS: clonazePAM 1 MG TAB PO SCH (22:46)
[2018-12-06] MEDS: HEPARIN SODIUM,PORCINE 5,000 UNIT/ML 1 ML VIAL SQ SCH ×4 (00:28→23:50)
[2018-12-06] MEDS: KETOROLAC 30 MG/ML 1 ML VIAL IM SCH ×5 (00:29→23:49)
[2018-12-06] MEDS: HYDROmorphone 0.5 MG/0.5 ML SYRINGE IVP PRN ×2 (04:18→11:53)
--- NOTE | 2018-12-06 08:10 | P.CONS ---
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 He fell and suffered significant contusions including sternal fracture. He is here for appropriate pain control treatment and trauma evaluation. He hasn't underlying history of rheumatoid arthritis. No loss of consciousness as noted. He seems lucid today and is inquiring about appropriate pain control. 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 History of Any Multi-Drug Resistant Organisms: None Reported Past Surgical History: Hernia Repair Additional Past Surgical History / Comment(s): implanted pain stimulator. STEROID INJECTION KNEES. COLONOSCOPY Past Anesthesia/Blood Transfusion Reactions: No Reported Reaction Smoking Status: Current every day smoker - Past Family History Mother Family Medical History: No Reported History Additional Family Medical History / Comment(s): of alcoholism Father Family Medical History: CVA/TIA, Myocardial Infarction ([place]) Medications and Allergies Home Medications Medication Instructions Recorded Confirmed Type Allopurinol [Zyloprim] 300 mg PO DAILY 10/14/15 12/05/18 History Doxazosin Mesylate [Cardura] 4 mg PO BID 10/14/15 12/05/18 History Ferrous Sulfate [Feosol] 325 mg PO DAILY 10/14/15 12/05/18 History Folic Acid 1 mg PO DAILY 10/14/15 12/05/18 History Glucosam/Tim-Msm1/C/Harish/Bosw 1 tab PO DAILY 10/14/15 12/05/18 History [Glucosamine-Chondroitin Tablet] HYDROcodone/APAP 10-325MG [[place] 1 tab PO TID PRN 10/14/15 12/05/18 History 10-325] Methotrexate Sodium [Methotrexate] 20 mg PO MO 10/14/15 12/05/18 History Morphine Sulfate ER [Ms Contin 60 mg PO Q12HR 10/14/15 12/05/18 History 60Mg] Ramipril 10 mg PO HS 10/14/15 12/05/18 History Simvastatin [Zocor] 80 mg PO HS 10/14/15 12/05/18 History azaTHIOprine [Imuran] 50 mg PO DAILY 10/14/15 12/05/18 History clonazePAM [KlonoPIN] 4 mg PO TID 10/14/15 12/05/18 History rOPINIRole HCL [Requip] 4 mg PO HS 10/14/15 12/05/18 History Certolizumab Pegol [Cimzia] 400 mg SQ Q28D 06/22/16 12/05/18 History Baclofen [Lioresal] 20 mg PO TID 12/05/18 12/05/18 History Calcium 1000mg 1,000 mg PO DAILY 12/05/18 12/05/18 History Gabapentin [Neurontin] 300 mg PO TID 12/05/18 12/05/18 History Allergies Allergy/AdvReac Type Severity Reaction Status Date / Time No Known Allergies Allergy Verified 12/05/18 16:20 Physical Exam Vitals: Vital Signs Temp Pulse Pulse Resp BP BP Pulse Ox 12/06/18 06:48 98.7 F 69 18 122/73 96 12/06/18 04:20 82 18 120/69 95 12/06/18 00:35 99.0 F 80 18 109/73 95 12/05/18 22:10 70 18 115/71 95 12/05/18 21:03 100 F H 90 18 119/75 93 L 12/05/18 20:00 100.2 F H 90 18 125/70 96 12/05/18 13:47 98.2 F 88 22 114/77 92 L Intake and Output 12/05/18 12/06/18 12/06/18 22:59 06:59 14:59 Other: Voiding Method Urinal # Voids 0 Weight 125 kg - Constitutional General appearance: mild distress - EENT Eyes: EOMI - Neck Neck: no lymphadenopathy - Respiratory Respiratory: bilateral: CTA - Cardiovascular Rhythm: regular Heart sounds: normal: S1, S2 Abnormal Heart Sounds: no S3 Gallop - Gastrointestinal General gastrointestinal: soft, no tenderness - Integumentary Integumentary: no cellulitis - Neurologic Neurologic: CNII-XII intact - Psychiatric Psychiatric: A&O x's 3, appropriate affect Results CBC & Chem 7: 12/05/18 14:20 12/05/18 14:50 Labs: Abnormal Lab Results - Last 24 Hours (Table) 12/05/18 12/05/18 12/05/18 Range/Units 13:47 14:20 14:50 RBC 3.79 L (4.30-5.90) m/uL Hgb 12.6 L (13.0-17.5) gm/dL Hct 37.5 L (39.0-53.0) % RDW 17.0 H (11.5-15.5) % Plt Count 148 L (150-450) k/uL Lymphocytes # 0.8 L (1.0-4.8) k/uL Glucose 116 H (74-99) mg/dL POC Glucose (mg/dL) 119 H (75-99) mg/dL Ur Specific [place] (1.001-1.035) Urine Opiates Screen (NotDetected) U Benzodiazepines Scrn (NotDetected) U Marijuana (THC) Screen (NotDetected) 12/05/18 Range/Units 20:10 RBC (4.30-5.90) m/uL Hgb (13.0-17.5) gm/dL Hct (39.0-53.0) % RDW (11.5-15.5) % Plt Count (150-450) k/uL Lymphocytes # (1.0-4.8) k/uL Glucose (74-99) mg/dL POC Glucose (mg/dL) (75-99) mg/dL Ur Specific [place] 1.050 H (1.001-1.035) Urine Opiates Screen Detected H (NotDetected) U Benzodiazepines Scrn Detected H (NotDetected) U Marijuana (THC) Screen Detected H (NotDetected) Assessment and Plan (1) Rheumatoid arthritis Current Visit: Yes Status: Acute Code(s): M06.9 - RHEUMATOID ARTHRITIS, UNSPECIFIED SNOMED Code(s): 62476754 (2) Hypertension Current Visit: Yes Status: Acute Code(s): I10 - ESSENTIAL (PRIMARY) HYPERTENSION SNOMED Code(s): 71906588 (3) Hyperlipidemia Current Visit: Yes Status: Acute Code(s): E78.5 - HYPERLIPIDEMIA, UN SPECIFIED SNOMED Code(s): 87679509 (4) BPH (benign prostatic hyperplasia) Current Visit: Yes Status: Acute Code(s): N40.0 - BENIGN PROSTATIC HYPERPLASIA WITHOUT LOWER URINRY TRACT SYMP SNOMED Code(s): 720072189 (5) Sternum fx Current Visit: Yes Status: Acute Code(s): S22.20XA - UNSP FRACTURE OF STERNUM, INIT ENCNTR FOR CLOSED FRACTURE SNOMED Code(s): 94249433 Plan: Reconcile home medications. Pain control. Appreciate input from multiple surgical services. We will continue to follow. Time with Patient: Greater than 30
[2018-12-06] MEDS: FAMOTIDINE 20 MG/2 ML VIAL IV SCH (08:48)
[2018-12-06] MEDS: clonazePAM 1 MG TAB PO SCH ×3 (08:49→20:51)
[2018-12-06] MEDS: GABAPENTIN 300 MG CAP PO SCH ×3 (08:49→20:50)
[2018-12-06] MEDS: ALLOPURINOL 300 MG TAB PO SCH (08:49)
[2018-12-06] MEDS: BACLOFEN 10 MG TAB PO SCH ×3 (08:49→20:50)
[2018-12-06] MEDS: FERROUS SULFATE 325 MG TAB PO SCH (08:49)
[2018-12-06] MEDS: CALCIUM CARBONATE 500 MG CHEWABLE PO SCH (08:49)
[2018-12-06] MEDS: azaTHIOprine 50 MG TAB PO SCH (08:50)
--- NOTE | 2018-12-06 09:46 | P.PN ---
<Bernadette Benedict Dao - Last Filed: 12/06/18 09:38> Subjective Progress Note Date: 12/06/18 CHIEF COMPLAINT: Fall HISTORY OF PRESENT ILLNESS: Patient examined at the bedside this morning. He is awake and alert. Complains of left knee pain and right rib pain. He reports his pain is tolerable at this time. He appears comfortable. Tolerating diet. Denies nausea or vomiting. Denies headache. Using IS and pulling 1500cc. PHYSICAL EXAM: VITAL SIGNS: Reviewed. GENERAL: Well-developed in no acute distress. HEENT: No sclera icterus. Extraocular movements grossly intact. Moist buccal mucosa. Small hematoma of right parietal region. ABDOMEN: Soft. Nondistended. Nontender. NEUROLOGIC: Alert and oriented. Cranial nerves II through XII grossly intact. EXTREMITIES: Left knee immobilizer in place. Abrasions to left arm. ASSESSMENT: 1. Trauma, s/p fall from ladder 2. Sternal fracture 3. Right 9th rib fracture 4. Possible left femur fracture PLAN: CTS on consult. No surgical intervention recommended Pain control Incentive spirometry Continue current diet Await orthopedic consultation Nurse practitioner note has been reviewed by physician. Signing provider agrees with the documented findings, assessment, and plan of care. Objective - Vital Signs Vital signs: Vital Signs Temp 97.1 F L 12/06/18 08:00 Pulse 85 12/06/18 08:00 Resp 20 12/06/18 08:00 BP 97/55 12/06/18 08:00 Pulse Ox 93 L 12/06/18 08:00 Intake & Output 12/05/18 12/06/18 12/06/18 18:59 06:59 18:59 Weight 124.738 kg 125 kg Other: Voiding Method Urinal # Voids 0 - Labs CBC & Chem 7: 12/05/18 14:20 12/05/18 14:50 Labs: Abnormal Lab Results - Last 24 Hours (Table) 12/05/18 12/05/18 12/05/18 Range/Units 13:47 14:20 14:50 RBC 3.79 L (4.30-5.90) m/uL Hgb 12.6 L (13.0-17.5) gm/dL Hct 37.5 L (39.0-53.0) % RDW 17.0 H (11.5-15.5) % Plt Count 148 L (150-450) k/uL Lymphocytes # 0.8 L (1.0-4.8) k/uL Glucose 116 H (74-99) mg/dL POC Glucose (mg/dL) 119 H (75-99) mg/dL Ur Specific [place] (1.001-1.035) Urine Opiates Screen (NotDetected) U Benzodiazepines Scrn (NotDetected) U Marijuana (THC) Screen (NotDetected) 12/05/18 Range/Units 20:10 RBC (4.30-5.90) m/uL Hgb (13.0-17.5) gm/dL Hct (39.0-53.0) % RDW (11.5-15.5) % Plt Count (150-450) k/uL Lymphocytes # (1.0-4.8) k/uL Glucose (74-99) mg/dL POC Glucose (mg/dL) (75-99) mg/dL Ur Specific [place] 1.050 H (1.001-1.035) Urine Opiates Screen Detected H (NotDetected) U Benzodiazepines Scrn Detected H (NotDetected) U Marijuana (THC) Screen Detected H (NotDetected) <Colin Gambino - Last Filed: 12/06/18 18:47> Subjective As above. Patient feels better than he did last night. Still having mild chest and leg pain. Also complaining of low back pain and right shoulder pain. We'll check x-rays right shoulder. We'll defer evaluation of low back pain to orthopedics. Continue diet as tolerated. Gradually work with physical therapy. Objective - Vital Signs Vital signs: Vital Signs Temp 98.7 F 12/06/18 15:23 Pulse 66 12/06/18 15:23 Resp 16 12/06/18 15:23 BP 104/64 12/06/18 15:23 Pulse Ox 96 12/06/18 15:23 Intake & Output 12/05/18 12/06/18 12/06/18 18:59 06:59 18:59 Intake Total 1800 Output Total 400 Balance 1400 Weight 124.738 kg 125 kg Intake: IV 600 Sodium Chloride 0.9% 1, 600 000 ml @ 75 mls/hr IV . [id number] ONE Rx#:[id number] Oral 1200 Output: Urine 400 Other: Voiding Method Urinal # Voids 0 - Labs CBC & Chem 7: 12/05/18 14:20 12/05/18 14:50 Labs: Abnormal Lab Results - Last 24 Hours (Table) 12/05/18 Range/Units 20:10 Ur Specific [place] 1.050 H (1.001-1.035) Urine Opiates Screen Detected H (NotDetected) U Benzodiazepines Scrn Detected H (NotDetected) U Marijuana (THC) Screen Detected H (NotDetected) Assessment and Plan (1) Sternum fx Current Visit: Yes Status: Acute Code(s): S22.20XA - UNSP FRACTURE OF STERNUM, INIT ENCNTR FOR CLOSED FRACTURE SNOMED Code(s): 62184390
--- NOTE | 2018-12-06 10:38 | P.CNOR ---
History of Present Illness - [facility] Consult date: 12/06/18 Consult reason: fracture (Left distal femur fracture, sternal fracture) History of present illness: This is a 68-year-old male who presented to the emergency department last evening after falling approximately 8 feet from a ladder and sustained injury to his left leg and chest. He denies loss of consciousness. He states that he did hit his head, however. He is admitted to general surgery and we're consulted for orthopedic evaluation. He is a known patient of Dr. Shen Seymour. 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 History of Any Multi-Drug Resistant Organisms: None Reported Past Surgical History: Hernia Repair Additional Past Surgical History / Comment(s): implanted pain stimulator. STEROID INJECTION KNEES. COLONOSCOPY Past Anesthesia/Blood Transfusion Reactions: No Reported Reaction Smoking Status: Current every day smoker - Past Family History Mother Family Medical History: No Reported History Additional Family Medical History / Comment(s): of alcoholism Father Family Medical History: CVA/TIA, Myocardial Infarction ([place]) Medications and Allergies Home Medications Medication Instructions Recorded Confirmed Type Allopurinol [Zyloprim] 300 mg PO DAILY 10/14/15 12/05/18 History Doxazosin Mesylate [Cardura] 4 mg PO BID 10/14/15 12/05/18 History Ferrous Sulfate [Feosol] 325 mg PO DAILY 10/14/15 12/05/18 History Folic Acid 1 mg PO DAILY 10/14/15 12/05/18 History Glucosam/Tim-Msm1/C/Harish/Bosw 1 tab PO DAILY 10/14/15 12/05/18 History [Glucosamine-Chondroitin Tablet] HYDROcodone/APAP 10-325MG [[place] 1 tab PO TID PRN 10/14/15 12/05/18 History 10-325] Methotrexate Sodium [Methotrexate] 20 mg PO MO 10/14/15 12/05/18 History Morphine Sulfate ER [Ms Contin 60 mg PO Q12HR 10/14/15 12/05/18 History 60Mg] Ramipril 10 mg PO HS 10/14/15 12/05/18 History Simvastatin [Zocor] 80 mg PO HS 10/14/15 12/05/18 History azaTHIOprine [Imuran] 50 mg PO DAILY 10/14/15 12/05/18 History clonazePAM [KlonoPIN] 4 mg PO TID 10/14/15 12/05/18 History rOPINIRole HCL [Requip] 4 mg PO HS 10/14/15 12/05/18 History Certolizumab Pegol [Cimzia] 400 mg SQ Q28D 06/22/16 12/05/18 History Baclofen [Lioresal] 20 mg PO TID 12/05/18 12/05/18 History Calcium 1000mg 1,000 mg PO DAILY 12/05/18 12/05/18 History Gabapentin [Neurontin] 300 mg PO TID 12/05/18 12/05/18 History Allergies Allergy/AdvReac Type Severity Reaction Status Date / Time No Known Allergies Allergy Verified 12/05/18 16:20 Physical Examination This is a 68-year-old male in no acute distress. He is alert and oriented 3. Exam of the head neck reveal no obvious deformity. He has full cervical spine motion without difficulty or pain. Exam of the upper extremities is unremarkable. He has fairly good shoulder, elbow, wrist and finger motion bilaterally. Neurovascular status to the upper extremities is intact. Exam of the lower extremities reveals a 3+ effusion to the left knee. No erythema or ecchymosis. There is pain on palpation about the anterior, medial and lateral aspect of the knee. No pain with motion of the hips. Right knee exam is unremarkable. I am unable to evaluate the ligaments of the left knee secondary to pain and swelling. Full foot and ankle motion bilaterally. Neurovascular status to the lower extremities intact. Results X-rays of the right knee reveal a nondisplaced subtle fracture about the medial condyle femur. Moderate degenerative changes throughout the knee. No obvious displaced fractures noted. CT of the chest reveals a minimally displaced, comminuted manubrium fracture. There is also a right-sided night lateral rib fracture with mild displacement. Pelvis x-rays show no bony abnormality or fracture. - Labs Labs: Abnormal Lab Results - Last 24 Hours (Table) 12/05/18 12/05/18 12/05/18 Range/Units 13:47 14:20 14:50 RBC 3.79 L (4.30-5.90) m/uL Hgb 12.6 L (13.0-17.5) gm/dL Hct 37.5 L (39.0-53.0) % RDW 17.0 H (11.5-15.5) % Plt Count 148 L (150-450) k/uL Lymphocytes # 0.8 L (1.0-4.8) k/uL Glucose 116 H (74-99) mg/dL POC Glucose (mg/dL) 119 H (75-99) mg/dL Ur Specific [place] (1.001-1.035) Urine Opiates Screen (NotDetected) U Benzodiazepines Scrn (NotDetected) U Marijuana (THC) Screen (NotDetected) 12/05/18 Range/Units 20:10 RBC (4.30-5.90) m/uL Hgb (13.0-17.5) gm/dL Hct (39.0-53.0) % RDW (11.5-15.5) % Plt Count (150-450) k/uL Lymphocytes # (1.0-4.8) k/uL Glucose (74-99) mg/dL POC Glucose (mg/dL) (75-99) mg/dL Ur Specific [place] 1.050 H (1.001-1.035) Urine Opiates Screen Detected H (NotDetected) U Benzodiazepines Scrn Detected H (NotDetected) U Marijuana (THC) Screen Detected H (NotDetected) H & H 12/05/18 Range/Units 14:20 Hgb 12.6 L (13.0-17.5) gm/dL Hct 37.5 L (39.0-53.0) % Coagulation 12/05/18 Range/Units 14:48 INR 1.0 (<1.2) Result Diagrams: 12/05/18 14:20 12/05/18 14:50 Assessment and Plan (1) History of fall from ladder Current Visit: Yes Status: Acute Code(s): Z78.9 - OTHER SPECIFIED HEALTH STATUS SNOMED Code(s): 574995891 (2) Fracture of distal end of left femur Current Visit: Yes Status: Acute Code(s): S72.402A - UNSP FRACTURE OF LOWER END OF LEFT FEMUR, INIT FOR CLOS FX SNOMED Code(s): 079343582 (3) Rib fracture Current Visit: Yes Status: Acute Code(s): S22.39XA - FRACTURE OF ONE RIB, UNSP SIDE, INIT FOR CLOS FX SNOMED Code(s): 13608685 (4) Sternum fx Current Visit: Yes Status: Acute Code(s): S22.20XA - UNSP FRACTURE OF STERNUM, INIT ENCNTR FOR CLOSED FRACTURE SNOMED Code(s): 11381278 Plan: The clinical and x-ray findings are discussed the patient. The left knee is aspirated, obtaining 110 mL of blood. The patient is placed back into his knee immobilizer. He may be up with physical therapy if cleared medically. It is recommended he is a walker. He is toe-touch weightbearing to the left lower extremity. He is to follow-up in one week with orthopedics.
[2018-12-06] MEDS: DOXAZOSIN 4 MG TAB PO SCH ×2 (10:50→20:50)
[2018-12-06] MEDS ORDERED: SODIUM CHLORIDE 0.9% 500 ML 500 ML IV ONE (11:12)
--- NOTE | 2018-12-06 16:02 | XR ---
EXAMINATION TYPE: XR chest 2V DATE OF EXAM: 12/06/2018 COMPARISON: Chest x-ray and CT from yesterday. HISTORY: Fall injury with rib fractures. TECHNIQUE: Frontal and lateral views of the chest are obtained. FINDINGS: There is new left basilar linear atelectasis. There are new tiny bilateral pleural effusio ns on lateral view. The cardiac silhouette size remains enlarged though no cardiomegaly is seen on C T. Lateral lower rib fractures less well seen on x-ray versus CT. No pneumothorax is evident. Spinal stimulator device redemonstrated. IMPRESSION: New tiny bilateral pleural effusions and left basilar linear atelectasis.
[2018-12-06] MEDS: rOPINIRole HCL 4 MG TABLET PO SCH (20:50)
[2018-12-06] MEDS: LISINOPRIL 20 MG TAB PO SCH (20:50)
[2018-12-06] MEDS: ATORVASTATIN 40 MG TAB PO SCH (20:50)
[2018-12-06] MEDS: FAMOTIDINE 20 MG TAB PO SCH (20:51)
[2018-12-07] MEDS: HYDROmorphone 0.5 MG/0.5 ML SYRINGE IVP PRN ×4 (03:19→20:30)
[2018-12-07] MEDS: KETOROLAC 30 MG/ML 1 ML VIAL IM SCH ×3 (06:23→18:22)
[2018-12-07 07:25] LABS: Basophils % (A) 1 %; Eosinophils # (A) 0.3 k/uL (0-0.7); Eosinophils % (A) 7 %; HCT 32.6 % (39.0-53.0); HGB 10.8 gm/dL (13.0-17.5); Lymphocytes # (A) 0.9 k/uL (1.0-4.8); Lymphocytes % (A) 19 %; MCH 33.9 pg (25.0-35.0); MCHC 33.2 g/dL (31.0-37.0); Macrocytosis Slight; Mean Platelet Volume 7.9; Monocytes # (A) 0.3 k/uL (0-1.0); Monocytes % (A) 6 %; Neutrophils # (A) 3.1 k/uL (1.3-7.7); Neutrophils % (A) 65 %; Platelet Count 156 k/uL (150-450); RDW 15.9 % (11.5-15.5); WBC 4.8 k/uL (3.8-10.6)
--- NOTE | 2018-12-07 07:41 | XR ---
EXAMINATION TYPE: XR shoulder limited RT DATE OF EXAM: 12/07/2018 CLINICAL HISTORY: Right shoulder pain after fall TECHNIQUE: 2 views of the right shoulder are obtained. COMPARISON: None. FINDINGS: There is no acute fracture/dislocation evident in the right shoulder. The acromioclavicul ar and glenohumeral joint spaces appear within normal limits. The visualized ribs are intact and unr emarkable. There is a noncomminuted fracture of the posterior lateral margin of rib 5 on the right. IMPRESSION: There is no acute fracture or dislocation in the right shoulder. The known right lateral comminuted rib fracture of rib 9 is not seen however nondisplaced fracture of the posterior lateral rib 5 is appreciated.
[2018-12-07 07:56] LABS: Anion Gap 2 mmol/L; Blood Urea Nitrogen 23 mg/dL (9-20); Calcium 8.4 mg/dL (8.4-10.2); Carbon Dioxide 31 mmol/L (22-30); Chloride 106 mmol/L (98-107); Glucose 93 mg/dL (74-99); Potassium 4.3 mmol/L (3.5-5.1); Sodium 139 mmol/L (137-145)
[2018-12-07] MEDS: GABAPENTIN 300 MG CAP PO SCH ×3 (07:56→20:33)
[2018-12-07] MEDS: clonazePAM 1 MG TAB PO SCH ×3 (07:56→20:32)
[2018-12-07] MEDS: CALCIUM CARBONATE 500 MG CHEWABLE PO SCH (07:56)
[2018-12-07] MEDS: FERROUS SULFATE 325 MG TAB PO SCH (07:57)
[2018-12-07] MEDS: DOXAZOSIN 4 MG TAB PO SCH ×2 (07:57→20:33)
[2018-12-07] MEDS: FAMOTIDINE 20 MG TAB PO SCH ×2 (07:57→20:33)
[2018-12-07] MEDS: HEPARIN SODIUM,PORCINE 5,000 UNIT/ML 1 ML VIAL SQ SCH ×2 (07:57→16:49)
[2018-12-07] MEDS: ALLOPURINOL 300 MG TAB PO SCH (07:57)
[2018-12-07] MEDS: BACLOFEN 10 MG TAB PO SCH ×3 (07:58→20:33)
[2018-12-07] MEDS: HYDROcodone/APAP 10-325MG 1 EACH TAB PO PRN (08:03)
--- NOTE | 2018-12-07 08:58 | P.PN ---
Subjective Progress Note Date: 12/07/18 Principal diagnosis: Multiple trauma, status post fall from ladder This is a 68-year-old male whom we're following regarding his multiple injuries after falling from a ladder. He has no complaints today of increased low back pain, upper extremity weakness and right knee pain. He also complains of intermittent numbness and tingling to the hands. He states that his left knee is feeling better since the aspiration of 110 mL of blood from the knee yesterday. Physical therapy is at bedside today. They tried to get him up which did not go well. He rates his current pain 03/30. Objective - Vital Signs Vital signs: Vital Signs Temp 98.3 F 12/07/18 08:00 Pulse 63 12/07/18 08:00 Resp 16 12/07/18 08:00 BP 90/53 12/07/18 08:00 Pulse Ox 94 L 12/07/18 08:00 Intake & Output 12/06/18 12/07/18 12/07/18 18:59 06:59 18:59 Intake Total 1800 240 Output Total 400 400 Balance 1400 -400 240 Weight 127 kg Intake: IV 600 Sodium Chloride 0.9% 1, 600 000 ml @ 75 mls/hr IV . [id number] ONE Rx#:[id number] Oral 1200 240 Output: Urine 400 400 - Exam This is a pleasant 60-year-old male in no acute distress. He is alert and oriented 3. Exam of the head neck reveal no obvious deformity. There is only slight limitation in cervical rotation. There is minimal pain with palpation about cervical spine. Slight paracervical tenderness on the left. Exam of the upper extremities reveal fairly good shoulder, elbow, wrist and finger motion. He is unable to sustain his arms overhead for more than about 10-15 seconds. Financial Supervisor strength is weak bilaterally, with the left weaker than the right. Exam of the low back reveals tenderness about the lower lumbar region today. Exam of the lower extremities reveals knee immobilizer in place on the left. He has full foot and ankle motion on the left. He is able to straight leg raise with pain on the left. Exam of the right lower extremity reveals 1-2+ joint effusion of the knee. Patient is unable to lift the leg off the bed independently. He is unable to sustain extension when leg is lifted off the bed. He is able to actively flex his knee to 90 in bed. There is no deformity noted at the quadricep or patellar tendons. There is minimal pain on palpation about the knee. Pedal pulses are +2/4 bilaterally. - Labs CBC & Chem 7: 12/07/18 06:45 12/07/18 06:45 Labs: Abnormal Lab Results - Last 24 Hours (Table) 12/07/18 12/07/18 Range/Units 06:45 06:45 RBC 3.20 L (4.30-5.90) m/uL Hgb 10.8 L (13.0-17.5) gm/dL Hct 32.6 L (39.0-53.0) % MCV 102.0 H (80.0-100.0) fL RDW 15.9 H (11.5-15.5) % Lymphocytes # 0.9 L (1.0-4.8) k/uL Carbon Dioxide 31 H (22-30) mmol/L BUN 23 H (9-20) mg/dL Assessment and Plan (1) History of fall from ladder Current Visit: Yes Status: Acute Code(s): Z78.9 - OTHER SPECIFIED HEALTH STA TUS SNOMED Code(s): 925784323 (2) Fracture of distal end of left femur Current Visit: Yes Status: Acute Code(s): S72.402A - UNSP FRACTURE OF LOWER END OF LEFT FEMUR, INIT FOR CLOS FX SNOMED Code(s): 296404131 (3) Rib fracture Current Visit: Yes Status: Acute Code(s): S22.39XA - FRACTURE OF ONE RIB, UNSP SIDE, INIT FOR CLOS FX SNOMED Code(s): 48534967 (4) Sternum fx Current Visit: Yes Status: Acute Code(s): S22.20XA - UNSP FRACTURE OF STERNUM, INIT ENCNTR FOR CLOSED FRACTURE SNOMED Code(s): 06920078 Plan: The clinical and x-ray findings are discussed the patient. X-ray of the shoulder is reviewed which shows no evidence of fracture or dislocation. Computed tomography scan of the pelvis is again reviewed focusing on images of the lumbar spine. There is slight irregularity to the L4 vertebrae which may represent a subtle compression deformity which is consistent with his area of pain. I have reviewed the case with our spine service. We have also discussed his upper extremity and right lower extremity weakness. I have asked Dr. Arriola to review his x-rays and CTs. I do not believe the patient can have an MRI secondary to his neural stimulator in his low back. My immediate concern is that he may possibly have a myelopathic issue developing. I've consult Dr. Arriola for further evaluation. For right now I would keep him bed to chair transfer secondary to his weakness. I have ordered x-rays of the right knee to be sure that there are no bony injuries to his home for his weakness. We will continue to follow.
[2018-12-07] MEDS: azaTHIOprine 50 MG TAB PO SCH (09:03)
--- NOTE | 2018-12-07 09:24 | P.PN ---
Subjective Principal diagnosis: Status post fall with sternal contusion and rib fractures. The patient is feeling more overall pain from his fall from a ladder. Multiple consultants including surgery and orthopedics are appreciated. No voiding difficulties. No significant nausea, vomiting or diarrhea. Pain control seems to be nominal for him. Objective - Vital Signs Vital signs: Vital Signs Temp 98.3 F 12/07/18 08:00 Pulse 63 12/07/18 08:00 Resp 16 12/07/18 08:00 BP 90/53 12/07/18 08:00 Pulse Ox 94 L 12/07/18 08:00 Intake & Output 12/06/18 12/07/18 12/07/18 18:59 06:59 18:59 Intake Total 1800 240 Output Total 400 400 Balance 1400 -400 240 Weight 127 kg Intake: IV 600 Sodium Chloride 0.9% 1, 600 000 ml @ 75 mls/hr IV . [id number] ONE Rx#:[id number] Oral 1200 240 Output: Urine 400 400 - Constitutional General appearance: Present: average body habitus, cooperative - EENT Eyes: Absent: abnormal pupil - Neck Neck: Absent: lymphadenopathy - Respiratory Respiratory: bilateral: CTA - Cardiovascular Rhythm: regular Heart sounds: normal: S1, S2 Abnormal Heart Sounds: Absent: S3 Gallop - Gastrointestinal General gastrointestinal: Present: soft. Absent: tenderness - Integumentary Integumentary: Absent: cyanotic - Musculoskeletal Musculoskeletal: Present: gait normal - Labs CBC & Chem 7: 12/07/18 06:45 12/07/18 06:45 Labs: Abnormal Lab Results - Last 24 Hours (Table) 12/07/18 12/07/18 Range/Units 06:45 06:45 RBC 3.20 L (4.30-5.90) m/uL Hgb 10.8 L (13.0-17.5) gm/dL Hct 32.6 L (39.0-53.0) % MCV 102.0 H (80.0-100.0) fL RDW 15.9 H (11.5-15.5) % Lymphocytes # 0.9 L (1.0-4.8) k/uL Carbon Dioxide 31 H (22-30) mmol/L BUN 23 H (9-20) mg/dL Assessment and Plan (1) Rheumatoid arthritis Current Visit: Yes Status: Acute Code(s): M06.9 - RHEUMATOID ARTHRITIS, UNSPECIFIED SNOMED Code(s): 62036208 (2) Hypertension Current Visit: Yes Status: Acute Code(s): I10 - ESSENTIAL (PRIMARY) HYPERTENSION SNOMED Code(s): 06498601 (3) Hyperlipidemia Current Visit: Yes Status: Acute Code(s): E78.5 - HYPERLIPIDEMIA, UNSPECIFIED SNOMED Code(s): 07567117 (4) BPH (benign prostatic hyperplasia) Current Visit: Yes Status: Acute Code(s): N40.0 - BENIGN PROSTATIC HYPERPLASIA WITHOUT LOWER URINRY TRACT SYMP SNOMED Code(s): 572888655 (5) Sternum fx Current Visit: Yes Status: Acute Code(s): S22.20XA - UNSP FRACTURE OF STERNUM, INIT ENCNTR FOR CLOSED FRACTURE SNOMED Code(s): 95125062 Plan: Continue current pain control. Again, appreciate orthopedic referral. Hopefully we can get him cleared for rehabilitation. Discharge planning for possible ECF. Dr. Messer's group Route covering for the weekend.
--- NOTE | 2018-12-07 09:59 | P.PN ---
<Bernadette Benedict - Last Filed: 12/07/18 09:57> Subjective Progress Note Date: 12/07/18 CHIEF COMPLAINT: Fall HISTORY OF PRESENT ILLNESS: Patient examined at the bedside this morning. He is awake and alert. Pain is tolerable, he reports increased back pain and right knee pain. Underwent left knee aspiration yesterday. Ortho evaluated patient this morning and xrays of right knee ordered. PHYSICAL EXAM: VITAL SIGNS: Reviewed. GENERAL: Well-developed in no acute distress. HEENT: No sclera icterus. Extraocular movements grossly intact. Moist buccal mucosa. Small hematoma of right parietal region. ABDOMEN: Soft. Nondistended. Nontender. NEUROLOGIC: Alert and oriented. Cranial nerves II through XII grossly intact. EXTREMITIES: Left knee immobilizer in place. Abrasions to left arm. ASSESSMENT: 1. Trauma, s/p fall from ladder 2. Sternal fracture 3. Right 9th rib fracture 4. Possible left femur fracture PLAN: CTS on consult. No surgical intervention recommended Pain control Incentive spirometry Continue current diet Orthopedics on consult. Await results of right knee xray. Nurse practitioner note has been reviewed by physician. Signing provider agrees with the documented findings, assessment, and plan of care. Objective - Vital Signs Vital signs: Vital Signs Temp 98.3 F 12/07/18 08:00 Pulse 63 12/07/18 08:00 Resp 16 12/07/18 08:00 BP 90/53 12/07/18 08:00 Pulse Ox 94 L 12/07/18 08:00 Intake & Output 12/06/18 12/07/18 12/07/18 18:59 06:59 18:59 Intake Total 1800 240 Output Total 400 400 Balance 1400 -400 240 Weight 127 kg Intake: IV 600 Sodium Chloride 0.9% 1, 600 000 ml @ 75 mls/hr IV . [id number] ONE Rx#:[id number] Oral 1200 240 Output: Urine 400 400 - Labs CBC & Chem 7: 12/07/18 06:45 12/07/18 06:45 Labs: Abnormal Lab Results - Last 24 Hours (Table) 12/07/18 12/07/18 Range/Units 06:45 06:45 RBC 3.20 L (4.30-5.90) m/uL Hgb 10.8 L (13.0-17.5) gm/dL Hct 32.6 L (39.0-53.0) % MCV 102.0 H (80.0-100.0) fL RDW 15.9 H (11.5-15.5) % Lymphocytes # 0.9 L (1.0-4.8) k/uL Carbon Dioxide 31 H (22-30) mmol/L BUN 23 H (9-20) mg/dL <Colin Gambino - Last Filed: 12/07/18 15:01> Subjective As above. Patient says he feels about the same today. His back pain is improved. Case discussed with both orthopedics and spine surgery. Steroid sta rted for possible mild neuropraxia. Continue diet as tolerated. Continue pulmonary toilet and incentive spirometry. Continue physical therapy. May need outpatient versus inpatient rehab. Objective - Vital Signs Vital signs: Vital Signs Temp 98.3 F 12/07/18 08:00 Pulse 58 L 12/07/18 11:40 Resp 16 12/07/18 11:42 BP 93/63 12/07/18 11:40 Pulse Ox 96 12/07/18 11:40 Intake & Output 12/06/18 12/07/18 12/07/18 18:59 06:59 18:59 Intake Total 1800 480 Output Total 400 400 Balance 1400 -400 480 Weight 127 kg Intake: IV 600 Sodium Chloride 0.9% 1, 600 000 ml @ 75 mls/hr IV . [id number] ONE Rx#:[id number] Oral 1200 480 Output: Urine 400 400 Other: Voiding Method Urinal - Labs CBC & Chem 7: 12/07/18 06:45 12/07/18 06:45 Labs: Abnormal Lab Results - Last 24 Hours (Table) 12/07/18 12/07/18 Range/Units 06:45 06:45 RBC 3.20 L (4.30-5.90) m/uL Hgb 10.8 L (13.0-17.5) gm/dL Hct 32.6 L (39.0-53.0) % MCV 102.0 H (80.0-100.0) fL RDW 15.9 H (11.5-15.5) % Lymphocytes # 0.9 L (1.0-4.8) k/uL Carbon Dioxide 31 H (22-30) mmol/L BUN 23 H (9-20) mg/dL Assessment and Plan (1) Sternum fx Current Visit: Yes Status: Acute Code(s): S22.20XA - UNSP FRACTURE OF STERNUM, INIT ENCNTR FOR CLOSED FRACTURE SNOMED Code(s): 63051754
--- NOTE | 2018-12-07 10:14 | XR ---
EXAMINATION TYPE: XR knee complete RT DATE OF EXAM: 12/07/2018 CLINICAL HISTORY: Right knee pain after fall TECHNIQUE: Three views of the right knee are obtained. COMPARISON: None. FINDINGS: There is no acute fracture/dislocation evident in right knee. The tri-compartment joint s paces demonstrate very mild medial compartment joint space narrowing and small tricompartmental osteo phytes. Generalized osseous demineralization is seen. Mild atherosclerosis is noted. Very small circu lar joint effusion is also seen. The overlying soft tissue appears unremarkable. IMPRESSION: There is no acute fracture or dislocation in the right knee.
--- NOTE | 2018-12-07 12:14 | XR ---
EXAMINATION TYPE: XR chest 2V DATE OF EXAM: 12/07/2018 COMPARISON: 12/06/2018 HISTORY: Shortness of breath TECHNIQUE: Frontal and lateral views of the chest are obtained. FINDINGS: Trace bilateral pleural effusions are seen. Cardia mediastinal silhouette is enlarged. Min imal left basilar subsegmental atelectasis is redemonstrated. The known rib fractures are better seen on CT. No pneumothorax. The cardiac silhouette size is within normal limits. The osseous structure s are intact. Spinal nerve root stimulator is noted. IMPRESSION: Stable trace pleural effusions, enlarged cardiac mediastinal silhouette and left basilar subsegmental atelectasis. The known rib fractures are better seen on CT.
[2018-12-07] MEDS: LISINOPRIL 20 MG TAB PO SCH (20:32)
[2018-12-07] MEDS: rOPINIRole HCL 4 MG TABLET PO SCH (20:33)
[2018-12-07] MEDS: ATORVASTATIN 40 MG TAB PO SCH (20:33)
[2018-12-08] MEDS: HEPARIN SODIUM,PORCINE 5,000 UNIT/ML 1 ML VIAL SQ SCH ×3 (00:36→17:07)
[2018-12-08] MEDS: HYDROmorphone 0.5 MG/0.5 ML SYRINGE IVP PRN ×5 (05:12→20:38)
[2018-12-08] MEDS: clonazePAM 1 MG TAB PO SCH ×3 (08:54→20:35)
[2018-12-08] MEDS: predniSONE 20 MG TAB PO SCH (08:54)
[2018-12-08] MEDS: CALCIUM CARBONATE 500 MG CHEWABLE PO SCH (08:55)
[2018-12-08] MEDS: FAMOTIDINE 20 MG TAB PO SCH ×2 (08:55→20:37)
[2018-12-08] MEDS: HYDROcodone/APAP 10-325MG 1 EACH TAB PO PRN ×2 (08:56→17:00)
[2018-12-08] MEDS: ALLOPURINOL 300 MG TAB PO SCH (08:56)
[2018-12-08] MEDS: BACLOFEN 10 MG TAB PO SCH ×3 (08:57→20:47)
[2018-12-08] MEDS: FERROUS SULFATE 325 MG TAB PO SCH (08:57)
[2018-12-08] MEDS: GABAPENTIN 300 MG CAP PO SCH ×3 (08:57→20:37)
[2018-12-08] MEDS: DOXAZOSIN 4 MG TAB PO SCH ×2 (08:59→20:38)
[2018-12-08] MEDS: azaTHIOprine 50 MG TAB PO SCH (09:08)
--- NOTE | 2018-12-08 10:57 | P.CNOR ---
History of Present Illness - [facility] Consult date: 12/07/18 Requesting physician: Anika Reaves Consult reason: low back pain (L4 compression fracture deformity), neck pain, other (Upper extremity weakness) History of present illness: Patient is a very pleasant 68-year-old male who is seen and examined at the bedside after consultation was placed for increased cervical pain and right upper extremity weakness. Patient has been being seen and examined for other orthopedic injuries after sustaining a fall from a ladder. He denies loss of conscious at that time. He did hit his head. Separate from the cervical spine and upper extremities, he had been experiencing pain at his left knee, right knee, lumbar spine, and sternum. He was found to have a leftt subtle fracture of the left medial condylar femur. He was also found to have a minimally displaced comminuted manubrium fracture. He is in a knee immobilizer for the left lower extremity. Prior to physical examination today, x-rays have been taken of the right shoulder and right knee. Patient states he has pain in the posterior cervical spine with pain radiating over the right trapezius towards the shoulder. He has noticed some increasing weakness of the right biceps. 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 He denies any other recent injuries other than his significant fall from a ladder. He is also been experiencing increased low back pain following the fall. He does have known chronic pain in his lumbar spine. He has history of neurostimulator battery placement. He is also previously had a pain pump placed. He does not feel he be able to tolerate bracing due to his pain pump placement. He has a past medical history which includes hyperlipidemia, hypertension, rheumatoid arthritis, and sleep apnea. 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 History of Any Multi-Drug Resistant Organisms: None Reported Past Surgical History: Hernia Repair Additional Past Surgical History / Comment(s): implanted pain stimulator. STEROID INJECTION KNEES. COLONOSCOPY Past Anesthesia/Blood Transfusion Reactions: No Reported Reaction Smoking Status: Current every day smoker - Past Family History Mother Family Medical History: No Reported History Additional Family Medical History / Comment(s): of alcoholism Father Family Medical History: CVA/TIA, Myocardial Infarction ([place]) Medications and Allergies Home Medications Medication Instructions Recorded Confirmed Type Allopurinol [Zyloprim] 300 mg PO DAILY 10/14/15 12/05/18 History Doxazosin Mesylate [Cardura] 4 mg PO BID 10/14/15 12/05/18 History Ferrous Sulfate [Feosol] 325 mg PO DAILY 10/14/15 12/05/18 History Folic Acid 1 mg PO DAILY 10/14/15 12/05/18 History Glucosam/Tim-Msm1/C/Harish/Bosw 1 tab PO DAILY 10/14/15 12/05/18 History [Glucosamine-Chondroitin Tablet] HYDROcodone/APAP 10-325MG [[place] 1 tab PO TID PRN 10/14/15 12/05/18 History 10-325] Methotrexate Sodium [Methotrexate] 20 mg PO MO 10/14/15 12/05/18 History Morphine Sulfate ER [Ms Contin 60 mg PO Q12HR 10/14/15 12/05/18 History 60Mg] Ramipril 10 mg PO HS 10/14/15 12/05/18 History Simvastatin [Zocor] 80 mg PO HS 10/14/15 12/05/18 History azaTHIOprine [Imuran] 50 mg PO DAILY 10/14/15 12/05/18 History clonazePAM [KlonoPIN] 4 mg PO TID 10/14/15 12/05/18 History rOPINIRole HCL [Requip] 4 mg PO HS 10/14/15 12/05/18 History Certolizumab Pegol [Cimzia] 400 mg SQ Q28D 06/22/16 12/05/18 History Baclofen [Lioresal] 20 mg PO TID 12/05/18 12/05/18 History Calcium 1000mg 1,000 mg PO DAILY 12/05/18 12/05/18 History Gabapentin [Neurontin] 300 mg PO TID 12/05/18 12/05/18 History Allergies Allergy/AdvReac Type Severity Reaction Status Date / Time No Known Allergies Allergy Verified 12/05/18 16:20 Physical Examination Physical exam: Patient is awake, alert, and oriented 3 Vital signs stable Good chest excursion with deep inspiration and expiration Evidence of pain pump placement over the left anterior abdomen Examination of the cervical spine reveals skin is intact with no abrasions, lacerations, or bruises; no erythema, purulence or signs of infection Significant pain on palpation over the posterior inferior cervical spine and over the right trapezius towards the shoulder Full range of motion of the cervical spine with adequate flexion, extension, and bilateral rotation 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, thumb strength, interosseous strength, biceps strength, triceps strength, and shoulder strength positive sustained bilaterally Patient is able to perform active range of motion of bilateral shoulders without significant difficulty Right upper extremity motor strength is 4/5 with breakaway strength including biceps Motor strength in the upper extremity is 3+/[address] maintenance supervisor bilaterally Significant pain at the right ribs with active range of motion of the right shoulder Examination of lumbar spine reveals skin is intact with no abrasions, lacerations, or bruises; no erythema, purulence or signs of infection Evidence of 2 well-healed incisions just laterally to the midline along the lower lumbar spine Pain with palpation along the midline of the lower lumbar spine Dorsiflexion, plantarflexion, and extensor hallucis longus positive sustained bilaterally Knee immobilizer intact left lower extremity Results Pertinent studies: X-ray of the left knee taken on 12/05/2018: Nondisplaced subtle fracture at the medial condyle; moderate degenerative changes throughout the left knee; no obvious displaced fracture noted CT of the chest, abdomen, pelvis taken on 12/05/2018: Minimally displaced comminuted manubrium fracture; right sided 9th lateral rib fracture with displacement; L4 superior endplate compression fracture deformity of indeterminate age evidence of neurostimulator placement; evidence of metallic object of the anterior abdomen that correlates well with patient's pain pump placement; evidence neurostimulator battery placement CT of the head and cervical spine taken on 12/05/2018: C4-5 and C5-6 spinal canal stenosis and degenerative disc disease; multilevel facet degenerative changes; no acute fracture dislocation within the cervical spine; no acute intracranial hemorrhage or midline shift seen; moderate diffuse cerebral atrophy; Pelvis x-ray taken on 12/05/2018: No bony abnormality or fracture X-ray of the right knee taken on 12/07/2018: No acute fracture dislocation in the right knee; tricompartmental joint space demonstrated very mild medial compartment joint space narrowing with small tract compartmental osteophytes X-ray the right shoulder taken on 12/07/2018: No acute fracture dislocation to the right shoulder; known right lateral comminuted rib fracture at rib #9 is not visible however nondisplaced fracture posterior lateral rib #5 is appreciated - Labs Labs: H & H 12/05/18 12/07/18 Range/Units 14:20 06:45 Hgb 12.6 L 10.8 L (13.0-17.5) gm/dL Hct 37.5 L 32.6 L (39.0-53.0) % Coagulation 12/05/18 Range/Units 14:48 INR 1.0 (<1.2) Result Diagrams: 12/07/18 06:45 12/07/18 06:45 Assessment and Plan Assessment: Assessment: Cervical pain Right upper extremity radiculopathy Bilateral upper extremity weakness C4-5 and C5-6 spinal canal stenosis C4-5 and C5-6 degenerative disc disease Cervical facet degenerative change Recent fall from ladder Multiple right-sided rib fractures at rib 5 and rib 9 Left nondisplaced subtle fracture at the medial condyle Minimally displaced comminuted manubrium fracture Right knee pain Low back pain L4 vertebral body compression fracture History of pain pump placement History of neurostimulator placement with battery History of Hyperlipidemia History of hypertension History of rheumatoid arthritis History of sleep apnea (1) Cervical pain Current Visit: Yes Status: Acute Code(s): M54.2 - CERVICALGIA SNOMED Code(s): 45217051 (2) Radiculopathy affecting upper extremity Current Visit: Yes Status: Acute Code(s): M54.10 - RADICULOPATHY, SITE U NSPECIFIED SNOMED Code(s): 70233892 (3) Weakness of both upper extremities Current Visit: Yes Status: Acute Code(s): R29.898 - OTH SYMPTOMS AND SIGNS INVOLVING THE MUSCULOSKELETAL SYSTEM SNOMED Code(s): 289964631 (4) Cervical stenosis of spinal canal Current Visit: Yes Status: Acute Code(s): M48.02 - SPINAL STENOSIS, CERVICAL REGION SNOMED Code(s): 26060473 (5) Degenerative disc disease, cervical Current Visit: Yes Status: Acute Code(s): M50.30 - OTHER CERVICAL DISC DEGENERATION, UNSP CERVICAL REGION SNOMED Code(s): 36617952 (6) Facet arthropathy, cervical Current Visit: Yes Status: Acute Code(s): M47.812 - SPONDYLOSIS W/O MYELOPATHY OR RADICULOPATHY, CERVICAL REGION SNOMED Code(s): 731438372 (7) Fracture of distal end of left femur Current Visit: Yes Status: Acute Code(s): S72.402A - UNSP FRACTURE OF LOWER END OF LEFT FEMUR, INIT FOR CLOS FX SNOMED Code(s): 098855877 (8) History of fall from ladder Current Visit: Yes Status: Acute Code(s): Z78.9 - OTHER SPECIFIED HEALTH STATUS SNOMED Code(s): 033469418 (9) Hyperlipidemia Current Visit: Yes Status: Acute Code(s): E78.5 - HYPERLIPIDEMIA, UNSPECIFIED SNOMED Code(s): 88866849 (10) Hypertension Current Visit: Yes Status: Acute Code(s): I10 - ESSENTIAL (PRIMARY) HYPERTENSION SNOMED Code(s): 92969687 (11) Rheumatoid arthritis Current Visit: Yes Status: Acute Code(s): M06.9 - RHEUMATOID ARTHRITIS, UNSPECIFIED SNOMED Code(s): 72298919 (12) Rib fracture Current Visit: Yes Status: Acute Code(s): S22.39XA - FRACTURE OF ONE RIB, UNSP SIDE, INIT FOR CLOS FX SNOMED Code(s): 42795713 (13) Sternum fx Current Visit: Yes Status: Acute Code(s): S22.20XA - UNSP FRACTURE OF YEUNG UM, INIT ENCNTR FOR CLOSED FRACTURE SNOMED Code(s): 03969788 Plan: Plan: 1. After reviewing of imaging, further discussion with Dr. Forrest Arriola, physical examination of the patient, and further discussion with the patient and his family, we'll currently planned to continue with conservative treatment in both regards to his cervical spine and lumbar spine. He has sustained multiple injuries following his recent fall off a ladder. He will continue with conservative treatment as prescribed previously in regards to his sternal fracture, right-sided rib fractures, and left knee medial condylar fracture. In regards to his cervical spine, he does have degenerative changes with stenosis and degenerative disc disease at C4-5 and C5-6. 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 He experiences some radiculopathy s ymptoms with pain radiating to the cervical spine over the right shoulder. He is unable to have a cervical MRI due to his previous neurostimulator placement. At this time, he will be prescribed prednisone 60 mg daily to see if this will help improve his symptoms. We are not currently planning for acute surgical intervention cervical spine. We also discussed some of his pain towards the shoulder could be due to his right-sided rib fractures as his pain is exacerbated with movements of the right shoulder. In regards to his exacerbated low back pain and L4 compression fracture deformity, we will also continue with conservative treatment. He has a pain pump in place over the left anterior abdomen. We did not feel he could tolerate bracing at this time. Patient does not feel he would tolerate bracing either. We discussed he should avoid excessive bending, twisting, lifting and should avoid excessive activities in regard to his lumbar spine. We will continue to follow patient closely during his admission to the hospital. 2. Patient will continue to be seen and examined by other medical providers including trauma and medicine Time with Patient: Greater than 30 (Including obtaining history, physical examination, reviewing of imaging, and dictation.)
--- NOTE | 2018-12-08 12:03 | P.PN ---
Progress Note - Text Progress Note Date: 12/08/18 Patient is a very pleasant 68-year-old male who is seen and examined at the bedside by Dr. Forrest Arriola and myself for follow-up evaluation in regards to his cervical pain and right upper extremity weakness. Patient has been being seen and examined for other orthopedic injuries after sustaining a fall from a ladder. He denies loss of conscious at that time. He did hit his head. Separate from the cervical spine and upper extremities, he had been experiencing pain at his left knee, right knee, lumbar spine, and sternum. He was found to have a left subtle fracture of the left medial condylar femur. He was also found to have a minimally displaced comminuted manubrium fracture. He is in a knee immobilizer for the left lower extremity. He has remained nonweightbearing on the left lower extremity. Since being seen in exam and yesterday he has been transferred to [facility]. His symptoms continue to be present but does feel he has had some better control of his symptoms. He continues to experience pain in the posterior cervical spine with pain radiating over the right trapezius towards the shoulder. 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 He has significant right posterior shoulder pain as well. He denies any other recent injuries other than his significant fall from a ladder. He continues to experience increased low back pain following the fall. He does have known chronic pain in his lumbar spine. He has history of neurostimulator battery placement. He is also previously had a pain pump placed. He does not feel he be able to tolerate bracing due to his pain pump placement. He has a past medical history which includes hyperlipidemia, hypertension, rheumatoid arthritis, and sleep apnea. Physical exam: Patient is awake, alert, and oriented 3 Vital signs stable Good chest excursion with deep inspiration and expiration Evidence of pain pump placement over the left anterior abdomen Examination of the cervical spine reveals skin is intact with no abrasions, lacerations, or bruises; no erythema, purulence or signs of infection Significant pain on palpation over the posterior inferior cervical spine and over the right trapezius towards the shoulder Significant pain with palpation with evidence of bruising over the right posterior shoulder Full range of motion of the cervical spine with adequate flexion, extension, and bilateral rotation Moving Worker strength, thumb strength, interosseous strength, biceps strength, triceps strength, and shoulder strength positive sustained bilaterally Patient is able to perform active range of motion of bilateral shoulders without significant difficulty Right upper extremity motor strength is 4/5 with breakaway strength including biceps Motor strength in the upper extremity is 3+/5 including salt operator bilaterally Significant pain at the right ribs with active range of motion of the right shoulder Examination of lumbar spine reveals skin is intact with no abrasions, lacerations, or bruises; no erythema, purulence or signs of infection Evidence of 2 well-healed incisions just laterally to the midline along the lower lumbar spine Pain with palpation along the midline of the lower lumbar spine Dorsiflexion, plantarflexion, and extensor hallucis longus positive sustained bilaterally Knee immobilizer intact left lower extremity Pertinent studies: X-ray of the left knee taken on 12/05/2018: Nondisplaced subtle fracture at the medial condyle; moderate degenerative changes throughout the left knee; no obvious displaced fracture noted CT of the chest, abdomen, pelvis taken on 12/05/2018: Minimally displaced comminuted manubrium fracture; right sided 9th lateral rib fracture with displacement; L4 superior endplate compression fracture deformity of indeterminate age evidence of neurostimulator placement; evidence of metallic object of the anterior abdomen that correlates well with patient's pain pump placement; evidence neurostimulator battery placement CT of the head and cervical spine taken on 12/05/2018: C4-5 and C5-6 spinal canal stenosis and degenerative disc disease; multilevel facet degenerative changes; no acute fracture dislocation within the cervical spine; no acute intracranial hemorrhage or midline shift seen; moderate diffuse cerebral atrophy; Pelvis x-ray taken on 12/05/2018: No bony abnormality or fracture X-ray of the right knee taken on 12/07/2018: No acute fracture dislocation in the right knee; tricompartmental joint space demonstrated very mild medial compartment joint space narrowing with small tract compartmental osteophytes X-ray the right shoulder taken on 12/07/2018: No acute fracture dislocation to the right shoulder; known right lateral comminuted rib fracture at rib #9 is not visible however nondisplaced fracture posterior lateral rib #5 is appreciated Assessment: Cervical pain Right upper extremity radiculopathy Bilateral upper extremity weakness C4-5 and C5-6 spinal canal stenosis C4-5 and C5-6 degenerative disc disease Cervical facet degenerative change Recent fall from ladder Right posterior shoulder pain with bruising Multiple right-sided rib fractures at rib 5 and rib 9 Left nondisplaced subtle fracture at the medial condyle Minimally displaced comminuted manubrium fracture Right knee pain Low back pain L4 vertebral body compression fracture History of pain pump placement History of neurostimulator placement with battery History of Hyperlipidemia History of hypertension History of rheumatoid arthritis History of sleep apnea Plan: 1. Patient has been seen and examined at the bedside by myself and Dr. Forrest Arriola. We will continue conservative treatment as set forth previously in both regards to his cervical spine and lumbar spine. He has sustained multiple injuries following his recent fall off a ladder. He will continue with conservative treatment as prescribed previously in regards to his sternal fracture, right-sided rib fractures, and left knee medial condylar fracture. He will keep his knee immobilizer intact to the left lower extremity. He will remain strict nonweightbearing on the left lower extremity. In regards to his cervical spine, he does have degenerative changes with stenosis and degenerative disc disease at C4-5 and C5-6. 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 He experiences some radiculopathy symptoms with pain radiating to the cervical spine over the right shoulder. He is unable to have a cervical MRI due to his previous neurostimulator placement. At this time, he will insinuate to receive prednisone 60 mg daily to see if this will help improve his symptoms. We are not currently planning for acute surgical intervention cervical spine. He does continue to have significant pain in his right shoulder has some posterior bruising of the right shoulder after his recent fall. We'll prescribe him a right upper extremity sling which he may wear for comfort support as needed for his right upper extremity. In regards to his exacerbated low back pain and L4 compression fracture deformity, we will continue with conservative treatment. He has a pain pump in place over the left anterior abdomen. We did not feel he could tolerate bracing at this time. Patient does not feel he would tolerate bracing either. We discussed he should avoid excessive bending, twisting, lifting and should avoid excessive activities in regard to his lumbar spine. We will continue to follow patient closely during his admission to the hospital. 2. Patient will continue to be seen and examined by other medical providers including trauma and medicine
--- NOTE | 2018-12-08 15:17 | P.PN ---
Subjective Progress Note Date: 12/08/18 CHIEF COMPLAINT: Status post fall with sternal fracture, rib fractures HISTORY OF PRESENT ILLNESS: The patient is a 68-year-old gentleman who presented as a fall from a ladder with resultant injuries including sternal fracture, rib fractures, femur fractures. Reports being in bed since his hospitalization however today, he is now out of bed and sitting in a chair. He reported initially some left shoulder pain including knee pain and has a knee immobilizer. He's tolerating diet. He has not had a bowel movement. He surrounded by friends and family. "I feel much better since been here." He is using his incentive spirometer 10 times per hour. ROS: No reports of nausea and vomiting. No bowel movements. No fevers or chills. No new chest pain. No productive sputum PHYSICAL EXAM: VITAL SIGNS: Reviewed CONSTITUTIONAL: Well developed and in no acute distress. EYES: Conjuctivae without sclera icterus. Extraocular movements grossly intact. HEAD, EARS, NOSE, THROAT: Moist buccal mucosa. Head is atraumatic, normocephalic. Hears conversational speech. No nasal drainage. NECK: Supple. No thyroidomegaly. RESPIRATORY: Non-labored respirations and equal bilateral excursions. CARDIOVASCULAR: Palpable 2+ radial pulses. ABDOMEN: Soft. Non-tender with ascites. MUSCULOSKELETAL: No gross deformity of the lower extremities noted. No clubbing. No cyanosis. Knee mobilizer along the left knee. SKIN: Good skin turgor. Well perfused. Multiple small lacerations along the left forearm superficial NEUROLOGIC: Cranial nerves I through XII grossly intact. No focal or lateralizing signs. PSYCH: Appropriate affect. Alert and oriented to person, place and time. CLINCAL LABS: Reviewed with acute drop of hemoglobin 2 g in 3 days. RADIOLOGY: Report reviewed. Multiple rib fractures including lumbar compression fracture ASSESSMENT: 1. Status post fall from ladder resulting in multiple right sided for fractures 2. Rheumatoid arthritis 3. Chronic pain PLAN: 1. He has risk for constipation and will start stool softener and laxative 2. He has multiple orthopedic issues for which orthopedic team is following. At this time no surgical intervention identified. 3. He has baseline chronic pain needs which further complicates his acute pain and will need close management with his primary care provider Objective - Vital Signs Vital signs: Vital Signs Temp 98.3 F 04/20/19 13:28 Pulse 71 12/08/18 13:28 Resp 16 12/08/18 13:28 BP 106/58 12/08/18 13:28 Pulse Ox 97 12/08/18 13:28 Intake & Output 12/07/18 12/08/18 12/08/18 18:59 06:59 18:59 Intake Total 480 Balance 480 Intake: Oral 480 Other: Voiding Method Urinal Urinal Urinal # Voids 1 3 - Labs CBC & Chem 7: 12/07/18 06:45 12/07/18 06:45 Assessment and Plan (1) Multiple fractures of ribs, right side, initial encounter for closed fracture Current Visit: Yes Status: Acute Code(s): S22.41XA - MULTIPLE FRACTURES OF RIBS, RIGHT SIDE, INIT FOR CLOS FX SNOMED Code(s): 20648884 (2) Sternal manubrial dissociation, initial encounter for closed fracture Current Visit: Yes Status: Acute Code(s): S22.23XA - STERNAL MANUBRIAL DISSOCIATION, INIT FOR CLOS FX SNOMED Code(s): 16535187 (3) Chronic pain due to trauma Current Visit: Yes Status: Acute Code(s): G89.21 - CHRONIC PAIN DUE TO TRAUMA SNOMED Code(s): 966601777 (4) Cervical stenosis of spinal canal Current Visit: Yes Status: Acute Code(s): M48.02 - SPINAL STENOSIS, CERVICAL REGION SNOMED Code(s): 35897578 (5) Degenerative disc disease, cervical Current Visit: Yes Status: Acute Code(s): M50.30 - OTHER CERVICAL DISC DEGENERATION, UNSP CERVICAL REGION SNOMED Code(s): 43548077 (6) History of fall from ladder Current Visit: Yes Status: Acute Code(s): Z78.9 - OTHER SPECIFIED HEALTH STATUS SNOMED Code(s): 798465444 (7) Hypertension Current Visit: Yes Status: Acute Code(s): I10 - ESSENTIAL (PRIMARY) HYPERTENSION SNOMED Code(s): 76628348 (8) Rheumatoid arthritis Current Visit: Yes Status: Acute Code(s): M06.9 - RHEUMATOID ARTHRITIS, UNSPECIFIED SNOMED Code(s): 59086506 (9) Sternum fx Current Visit: Yes Status: Acute Code(s): S22.20XA - UNSP FRACTURE OF STERNUM, INIT ENCNTR FOR CLOSED FRACTURE SNOMED Code(s): 53547792 (10) Kidney stones Current Visit: Yes Status: Acute Code(s): N20.0 - CALCULUS OF KIDNEY SNOMED Code(s): 02484716 (11) Inguinal hernia Current Visit: Yes Status: Acute Code(s): K40.90 - UNIL INGUINAL HERNIA, W/O OBST OR GANGR, NOT SPCF RECUR SNOMED Code(s): 671861597
[2018-12-08] MEDS: POLYETHYLENE GLYCOL 3350 17 GM POWD.PACK PO SCH (16:57)
[2018-12-08] MEDS: DOCUSATE 100 MG CAP PO SCH (16:57)
[2018-12-08] MEDS: LISINOPRIL 20 MG TAB PO SCH (20:36)
[2018-12-08] MEDS: rOPINIRole HCL 4 MG TABLET PO SCH (20:37)
[2018-12-08] MEDS: ATORVASTATIN 40 MG TAB PO SCH (20:37)
[2018-12-09] MEDS: HEPARIN SODIUM,PORCINE 5,000 UNIT/ML 1 ML VIAL SQ SCH ×4 (00:07→22:39)
[2018-12-09] MEDS: HYDROmorphone 0.5 MG/0.5 ML SYRINGE IVP PRN ×6 (00:13→23:51)
[2018-12-09] MEDS: BACLOFEN 10 MG TAB PO SCH ×3 (08:04→22:37)
[2018-12-09] MEDS: clonazePAM 1 MG TAB PO SCH ×3 (08:04→22:35)
[2018-12-09] MEDS: FAMOTIDINE 20 MG TAB PO SCH ×2 (08:05→22:39)
[2018-12-09] MEDS: ALLOPURINOL 300 MG TAB PO SCH (08:05)
[2018-12-09] MEDS: CALCIUM CARBONATE 500 MG CHEWABLE PO SCH (08:05)
[2018-12-09] MEDS: DOCUSATE 100 MG CAP PO SCH ×2 (08:05→22:39)
[2018-12-09] MEDS: GABAPENTIN 300 MG CAP PO SCH ×3 (08:05→22:38)
[2018-12-09] MEDS: POLYETHYLENE GLYCOL 3350 17 GM POWD.PACK PO SCH (08:06)
[2018-12-09] MEDS: DOXAZOSIN 4 MG TAB PO SCH ×2 (08:06→22:23)
[2018-12-09] MEDS: azaTHIOprine 50 MG TAB PO SCH (08:06)
[2018-12-09] MEDS: predniSONE 20 MG TAB PO SCH (08:06)
[2018-12-09] MEDS: FERROUS SULFATE 325 MG TAB PO SCH (08:06)
--- NOTE | 2018-12-09 10:36 | P.PN ---
Subjective Progress Note Date: 12/08/18 Principal diagnosis: Status post fall from ladder with sternal contusion and rib fractures Patient is is seen and examined at the bedside; orthopedic consultation was jean marie gloria for increased cervical pain and right upper extremity weakness. Separate from the cervical spine and upper extremities, he had been experiencing pain at his left knee, right knee, lumbar spine, and sternum. He was found to have a left subtle fracture of the left medial condylar femur. He was also found to have a minimally displaced comminuted manubrium fracture. He is in a knee immobilizer for the left lower extremity. Prior to physical examination today, x-rays have been taken of the right shoulder and right knee. Patient states he has pain in the posterior cervical spine with pain radiating over the right trapezius towards the shoulder. He has noticed some increasing weakness of the right biceps. 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 He denies any other recent injuries other than his significant fall from a ladder. He is also been experiencing increased low back pain following the fall. He does have known chronic pain in his lumbar spine. He has history of neurostimulator battery placement. He is also previously had a pain pump placed. He does not feel he be able to tolerate bracing due to his pain pump placement. 12/08/2018 Patient has been evaluated by orthopedic surgery and is recommended conservative treatment in regards to cervical spine and lumbar spine; sternal and rib fractures and left knee medial condyle fracture; patient does have degenerative changes with stenosis and degenerative disc disease at the level of C4-5 and C5 and 6 with some weakness and range of motion of right upper extremity; possible radiculopathy; patient cannot have cervical MRI due to stimulator placement in the past; orthopedic is recommending prednisone 60 mg daily at this time with no plan for acute surgical intervention Patient also has L4 compression fracture deformity which is also recommended to be treated conservatively Patient has a pain pump over left anterior abdomen; recommendations are to continue with current pain management and possible clearance for rehabilitation for discharge to SNF/ECF Objective - Vital Signs Vital signs: Vital Signs Temp 98.2 F 12/08/18 05:00 Pulse 65 12/08/18 05:00 Resp 18 12/08/18 05:00 BP 106/69 12/08/18 05:00 Pulse Ox 93 L 12/08/18 05:00 Intake & Output 12/07/18 12/08/18 12/08/18 18:59 06:59 18:59 Intake Total 480 Balance 480 Intake: Oral 480 Other: Voiding Method Urinal Urinal Urinal # Voids 1 - Exam GENERAL: Well-developed in no acute distress. HEENT: No sclera icterus. Extraocular movements grossly intact. Moist buccal mucosa. Small hematoma of right parietal region. ABDOMEN: Soft. Nondistended. Nontender. NEUROLOGIC: Alert and oriented. Cranial nerves II through XII grossly intact. EXTREMITIES: Left knee immobilizer in place. Abrasions to left arm. - Labs CBC & Chem 7: 12/07/18 06:45 12/07/18 06:45 Assessment and Plan Assessment: 1. Fall from a ladder with multiple fractures/ cervical radiculopathy - Pain controlled with pain pump along with hydrocodone 1 tablet 3 times a day when necessary - Orthopedic is following and recommending conservative treatment for multiple fractures and prednisone 60 mg daily for radiculopathy 2. Rheumatoid arthritis; Imuran 50 mg daily; Neurontin 300 mg by mouth 3 times a day 3. Hypertension; Cardura 4 mg by mouth twice a day; Zestril 40 mg by mouth daily at bedtime 4. Hyperlipidemia; continue with Lipitor 40 mg by mouth daily at bedtime 5. DVT prophylaxis; subcu heparin CODE STATUS; full code Time with Patient: Greater than 30
--- NOTE | 2018-12-09 10:44 | P.PN ---
Progress Note - Text Progress Note Date: 12/09/18 Patient is a very pleasant 68-year-old male who is seen and examined at the bedside for follow-up evaluation in regards to his cervical pain and right upper extremity weakness. Patient has been being seen and examined for other orthopedic injuries after sustaining a fall from a ladder. He denies loss of conscious at that time. He did hit his head. Separate from the cervical spine and upper extremities, he had been experiencing pain at his left knee, right knee, lumbar spine, and sternum. He was found to have a left subtle fracture of the left medial condylar femur. He was also found to have a minimally displaced comminuted manubrium fracture. He is in a knee immobilizer for the left lower extremity. He has remained nonweightbearing on the left lower extremity. Since being seen in examined and yesterday his symptoms continue to be present but does feel he has had some better control of his symptoms. He continues to experience pain in the posterior cervical spine with pain radiating over the right trapezius towards the shoulder. He also continues to experience some weak ness with his right biceps and cell builder bilaterally. He has significant right posterior shoulder pain as well. He denies any other recent injuries other than his significant fall from a ladder. He continues to experience increased low back pain following the fall. He does have known chronic pain in his lumbar spine. He has history of neurostimulator battery placement. He is also previously had a pain pump placed. He does not feel he be able to tolerate bracing due to his pain pump placement. He has a past medical history which includes hyperlipidemia, hypertension, rheumatoid arthritis, and sleep apnea. He feels his strength is improving as compared yesterday. Overall he feels his pain is better controlled. A sling for the right upper extremity was ordered yesterday but had not been delivered. He has no new complaints of the bedside. He feels he will be ready for discharge to a rehabilitation facility tomorrow. He feels given the improvement of his symptoms he may even be ready for discharge home. Physical exam: Patient is awake, alert, and oriented 3 Vital signs stable Good chest excursion with deep inspiration and expiration Evidence of pain pump placement over the left anterior abdomen Examination of the cervical spine reveals skin is intact with no abrasions, lacerations, or bruises; no erythema, purulence or signs of infection Significant pain on palpation over the posterior inferior cervical spine and over the right trapezius towards the shoulder Significant pain with palpation with evidence of bruising over the right posterior shoulder Full range of motion of the cervical spine with adequate flexion, extension, and bilateral rotation Db2 Developer strength, thumb strength, interosseous strength, biceps strength, triceps strength, and shoulder strength positive sustained bilaterally Patient is able to perform active range of motion of bilateral shoulders without significant difficulty Right upper extremity motor strength is 4/5 with breakaway strength including biceps Motor strength in the upper extremity is 3+/5 including cell builder bilaterally Significant pain at the right ribs with active range of motion of the right shoulder Examination of lumbar spine reveals skin is intact with no abrasions, lacerations, or bruises; no erythema, purulence or signs of infection Evidence of 2 well-healed incisions just laterally to the midline along the lower lumbar spine Pain with palpation along the midline of the lower lumbar spine Dorsiflexion, plantarflexion, and extensor hallucis longus positive sustained bilaterally Knee immobilizer intact left lower extremity Pertinent studies: X-ray of the left knee taken on 12/05/2018: Nondisplaced subtle fracture at the medial condyle; moderate degenerative changes throughout the left knee; no obvious displaced fracture noted CT of the chest, abdomen, pelvis taken on 12/05/2018: Minimally displaced comminuted manubrium fracture; right sided 9th lateral rib fracture with displacement; L4 superior endplate compression fracture deformity of indeterminate age evidence of neurostimulator placement; evidence of metallic ob ject of the anterior abdomen that correlates well with patient's pain pump placement; evidence neurostimulator battery placement CT of the head and cervical spine taken on 12/05/2018: C4-5 and C5-6 spinal canal stenosis and degenerative disc disease; multilevel facet degenerative changes; no acute fracture dislocation within the cervical spine; no acute intracranial hemorrhage or midline shift seen; moderate diffuse cerebral atrophy; Pelvis x-ray taken on 12/05/2018: No bony abnormality or fracture X-ray of the right knee taken on 12/07/2018: No acute fracture dislocation in the right knee; tricompartmental joint space demonstrated very mild medial compartment joint space narrowing with small tract compartmental osteophytes X-ray the right shoulder taken on 12/07/2018: No acute fracture dislocation to the right shoulder; known right lateral comminuted rib fracture at rib #9 is not visible however nondisplaced fracture posterior lateral rib #5 is appreciated Assessment: Cervical pain Right upper extremity radiculopathy Bilateral upper extremity weakness C4-5 and C5-6 spinal canal stenosis C4-5 and C5-6 degenerative disc disease Cervical facet degenerative change Recent fall from ladder Right posterior shoulder pain with bruising Multiple right-sided rib fractures at rib 5 and rib 9 Left nondisplaced subtle fracture at the medial condyle Minimally displaced comminuted manubrium fracture Right knee pain Low back pain L4 vertebral body compression fracture History of pain pump placement History of neurostimulator placement with battery History of Hyperlipidemia History of hypertension History of rheumatoid arthritis History of sleep apnea Plan: 1. We will continue conservative treatment as set forth previously in both regards to his cervical spine and lumbar spine. He has sustained multiple injuries following his recent fall off a ladder. He will continue with conservative treatment as prescribed previously in regards to his sternal fracture, right-sided rib fractures, and left knee medial condylar fracture. He will keep his knee immobilizer intact to the left lower extremity. He will remain strict nonweightbearing on the left lower extremity. In regards to his cervical spine, he does have degenerative changes with stenosis and degenerative disc disease at C4-5 and C5-6. He does have active range of motion of bilateral upper extremities with some evidence of weakness of the right biceps with a cell builder bilaterally. He experiences some radiculopathy symptoms with pain radiating to the cervical spine over the right shoulder. He is unable to have a cervical MRI due to his previous neurostimulator placement. At this time, he will insinuate to receive prednisone 60 mg daily to see if this will help improve his symptoms. We are not currently planning for acute surgical intervention cervical spine. He does continue to have significant pain in his right shoulder has some posterior bruising of the right shoulder after his recent fall. Yesterday I had prescribed a right upper extremity sling which he may wear for comfort support as needed for his right upper extremity but this slowly has not yet been delivered. Patient has been discussed with nursing will plan to obtain the sling. In regards to his exacerbated low back pain and L4 compression fracture deformity, we will continue with conservative treatment. He has a pain pump in place over the left anterior abdomen. We did not feel he could tolerate bracing at this time. Patient does not feel he would tolerate bracing either. We discussed he should avoid excessive bending, twisting, lifting and should avoid excessive activities in regard to his lumbar spine. We will continue to follow patient closely during his admission to the hospital. Following discharge from the hospital, we'll plan to have him follow up with Joe Reaves PA-C or Dr. Kenney for further evaluation for his multiple orthopedic issues. He may be referred back to us for follow-up evaluation in regards to his thoracic spine or lumbar spine as needed. 2. Patient will continue to be seen and examined by other medical providers including trauma and medicine
--- NOTE | 2018-12-09 11:34 | P.PN ---
Subjective Progress Note Date: 12/09/18 CHIEF COMPLAINT: Status post fall with sternal fracture, rib fractures HISTORY OF PRESENT ILLNESS: The patient is a 68-year-old gentleman who presented as a fall from a ladder with resultant injuries including sternal fracture, rib fractures, femur fractures. He continues to have increased her today. He reports no bowel movement however "I feel I might have to go today." He is pending transfer to rehab tomorrow. ROS: No reports of nausea and vomiting. No bowel movements. No fevers or chills. No new chest pain. No productive sputum PHYSICAL EXAM: VITAL SIGNS: Reviewed CONSTITUTIONAL: Well developed and in no acute distress. EYES: Conjuctivae without sclera icterus. Extraocular movements grossly intact. HEAD, EARS, NOSE, THROAT: Moist buccal mucosa. Head is atraumatic, normoceph alic. Hears conversational speech. No nasal drainage. NECK: Supple. No thyroidomegaly. RESPIRATORY: Non-labored respirations and equal bilateral excursions. CARDIOVASCULAR: Palpable 2+ radial pulses. ABDOMEN: Soft. Nontender. Minimal distention. No peritonitis. NO ASCITES. MUSCULOSKELETAL: No gross deformity of the lower extremities noted. No clubbing. No cyanosis. Knee mobilizer along the left knee. SKIN: Good skin turgor. Well perfused. Multiple small lacerations along the left forearm superficial NEUROLOGIC: Cranial nerves I through XII grossly intact. No focal or lateralizing signs. PSYCH: Appropriate affect. Alert and oriented to person, place and time. ASSESSMENT: 1. Status post fall from ladder resulting in multiple right sided for fractures 2. Rheumatoid arthritis 3. Chronic pain PLAN: 1. He was started on Colace including MiraLAX. Will add milk of magnesia for bowel movement. 2. Otherwise patient clear from a surgical standpoint for transfer to rehab tomorrow. Objective - Vital Signs Vital signs: Vital Signs Temp 98.0 F 12/09/18 05:00 Pulse 50 L 12/09/18 05:00 Resp 16 12/09/18 05:00 BP 98/60 12/09/18 05:00 Pulse Ox 93 L 12/09/18 05:00 Intake & Output 12/08/18 12/09/18 12/09/18 18:59 06:59 18:59 Intake Total 590 Output Total 300 Balance 590 -300 Intake: Oral 590 Output: Urine 300 Other: Voiding Method Urinal Urinal Urinal # Voids 3 1 - Labs CBC & Chem 7: 12/07/18 06:45 12/07/18 06:45 Assessment and Plan (1) Multiple fractures of ribs, right side, initial encounter for closed fracture Current Visit: Yes Status: Acute Code(s): S22.41XA - MULTIPLE FRACTURES OF RIBS, RIGHT SIDE, INIT FOR CLOS FX SNOMED Code(s): 03810256 (2) Sternal manubrial dissociation, initial encounter for closed fracture Current Visit: Yes Status: Acute Code(s): S22.23XA - STERNAL MANUBRIAL DISSOCIATION, INIT FOR CLOS FX SNOMED Code(s): 04875391 (3) Chronic pain due to trauma Current Visit: Yes Status: Acute Code(s): G89.21 - CHRONIC PAIN DUE TO TRAUMA SNOMED Code(s): 466454881 (4) Cervical stenosis of spinal canal Current Visit: Yes Status: Acute Code(s): M48.02 - SPINAL STENOSIS, CERVICAL REGION SNOMED Code(s): 66840184 (5) Degenerative disc disease, cervical Current Visit: Yes Status: Acute Code(s): M50.30 - OTHER CERVICAL DISC DEGENERATION, UNSP CERVICAL REGION SNOMED Code(s): 44182114 (6) History of fall from ladder Current Visit: Yes Status: Acute Code(s): Z78.9 - OTHER SPECIFIED HEALTH STATUS SNOMED Code(s): 476428904 (7) Hypertension Current Visit: Yes Status: Acute Code(s): I10 - ESSENTIAL (PRIMARY) HYPERTENSION SNOMED Code(s): 31036392 (8) Rheumatoid arthritis Current Visit: Yes Status: Acute Code(s): M06.9 - RHEUMATOID ARTHRITIS, UNSPECIFIED SNOMED Code(s): 97620374 (9) Sternum fx Current Visit: Yes Status: Acute Code(s): S22.20XA - UNSP FRACTURE OF STERNUM, INIT ENCNTR FOR CLOSED FRACTURE SNOMED Code(s): 37867345 (10) Kidney stones Current Visit: Yes Status: Acute Code(s): N20.0 - CALCULUS OF KIDNEY SNOMED Code(s): 83246327 (11) Inguinal hernia Current Visit: Yes Status: Acute Code(s): K40.90 - UNIL INGUINAL HERNIA, W/O OBST OR GANGR, NOT SPCF RECUR SNOMED Code(s): 264579827
[2018-12-09] MEDS: MAGNESIUM HYDROXIDE 2,400 MG/10 ML CUP PO SCH ×2 (14:16→22:39)
--- NOTE | 2018-12-09 14:39 | P.PN ---
Subjective Progress Note Date: 12/09/18 Principal diagnosis: Status post fall from ladder with sternal contusion and rib fractures Patient is is seen and examined at the bedside; orthopedic consultation was jean marie gloria for increased cervical pain and right upper extremity weakness. Separate from the cervical spine and upper extremities, he had been experiencing pain at his left knee, right knee, lumbar spine, and sternum. He was found to have a left subtle fracture of the left medial condylar femur. He was also found to have a minimally displaced comminuted manubrium fracture. He is in a knee immobilizer for the left lower extremity. Prior to physical examination today, x-rays have been taken of the right shoulder and right knee. Patient states he has pain in the posterior cervical spine with pain radiating over the right trapezius towards the shoulder. He has noticed some increasing weakness of the right biceps. 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 He denies any other recent injuries other than his significant fall from a ladder. He is also been experiencing increased low back pain following the fall. He does have known chronic pain in his lumbar spine. He has history of neurostimulator battery placement. He is also previously had a pain pump placed. He does not feel he be able to tolerate bracing due to his pain pump placement. 12/08/2018 Patient has been evaluated by orthopedic surgery and is recommended conservative treatment in regards to cervical spine and lumbar spine; sternal and rib fractures and left knee medial condyle fracture; patient does have degenerative changes with stenosis and degenerative disc disease at the level of C4-5 and C5 and 6 with some weakness and range of motion of right upper extremity; possible radiculopathy; patient cannot have cervical MRI due to stimulator placement in the past; orthopedic is recommending prednisone 60 mg daily at this time with no plan for acute surgical intervention Patient also has L4 compression fracture deformity which is also recommended to be treated conservatively Patient has a pain pump over left anterior abdomen; recommendations are to continue with current pain management and possible clearance for rehabilitation for discharge to SNF/ECF 12/09/2018 Patient is seen and evaluated in the room at bedside; has been complaining of constipation; he was started on Colace and MiraLAX with no good bowel movement; milk of magnesia is added Vital signs remained stable with a temperature of 97.1, pulse 81, respiration 18 and blood pressure 102/64 patient has been recommended transfer to rehab tomorrow from surgery service; we will consult case management/[employer] for discharge planning Objective - Vital Signs Vital signs: Vital Signs Temp 98.0 F 12/09/18 05:00 Pulse 50 L 12/09/18 05:00 Resp 16 12/09/18 05:00 BP 98/60 12/09/18 05:00 Pulse Ox 93 L 12/09/18 05:00 Intake & Output 12/08/18 12/09/18 12/09/18 18:59 06:59 18:59 Intake Total 590 Output Total 300 Balance 590 -300 Intake: Oral 590 Output: Urine 300 Other: Voiding Method Urinal Urinal Urinal # Voids 3 1 - Exam GENERAL: Well-developed in no acute distress. HEENT: No sclera icterus. Extraocular movements grossly intact. Moist buccal mucosa. Small hematoma of right parietal region. ABDOMEN: Soft. Nondistended. Nontender. NEUROLOGIC: Alert and oriented. Cranial nerves II through XII grossly intact. EXTREMITIES: Left knee immobilizer in place. Abrasions to left arm. - Labs CBC & Chem 7: 12/07/18 06:45 12/07/18 06:45 Assessment and Plan Assessment: 1. Fall from a ladder with multiple fractures/ cervical radiculopathy - Pain controlled with pain pump along with hydrocodone 1 tablet 3 times a day when necessary - Orthopedic is following and recommending conservative treatment for multiple fractures and prednisone 60 mg daily for radiculopathy 2. Rheumatoid arthritis; Imuran 50 mg daily; Neurontin 300 mg by mouth 3 times a day 3. Hypertension; Cardura 4 mg by mouth twice a day; Zestril 40 mg by mouth daily at bedtime 4. Hyperlipidemia; continue with Lipitor 40 mg by mouth daily at bedtime 5. DVT prophylaxis; subcu heparin CODE STATUS; full code Time with Patient: Greater than 30
[2018-12-09] MEDS: LISINOPRIL 20 MG TAB PO SCH (22:23)
[2018-12-09] MEDS: rOPINIRole HCL 4 MG TABLET PO SCH (22:37)
[2018-12-09] MEDS: ATORVASTATIN 40 MG TAB PO SCH (22:38)
[2018-12-10] MEDS: HYDROmorphone 0.5 MG/0.5 ML SYRINGE IVP PRN ×5 (03:39→23:42)
[2018-12-10] MEDS: FAMOTIDINE 20 MG TAB PO SCH ×2 (08:04→20:22)
[2018-12-10] MEDS: CALCIUM CARBONATE 500 MG CHEWABLE PO SCH (08:04)
[2018-12-10] MEDS: DOCUSATE 100 MG CAP PO SCH ×2 (08:04→20:22)
[2018-12-10] MEDS: ALLOPURINOL 300 MG TAB PO SCH (08:05)
[2018-12-10] MEDS: predniSONE 20 MG TAB PO SCH (08:05)
[2018-12-10] MEDS: HEPARIN SODIUM,PORCINE 5,000 UNIT/ML 1 ML VIAL SQ SCH ×3 (08:05→23:42)
[2018-12-10] MEDS: FERROUS SULFATE 325 MG TAB PO SCH (08:05)
[2018-12-10] MEDS: DOXAZOSIN 4 MG TAB PO SCH ×2 (08:05→20:22)
[2018-12-10] MEDS: clonazePAM 1 MG TAB PO SCH ×3 (08:05→22:17)
[2018-12-10] MEDS: BACLOFEN 10 MG TAB PO SCH ×3 (08:05→22:17)
[2018-12-10] MEDS: GABAPENTIN 300 MG CAP PO SCH ×3 (08:06→22:17)
[2018-12-10] MEDS: azaTHIOprine 50 MG TAB PO SCH (08:06)
[2018-12-10] MEDS: MAGNESIUM HYDROXIDE 2,400 MG/10 ML CUP PO SCH ×2 (08:09→20:22)
[2018-12-10] MEDS: POLYETHYLENE GLYCOL 3350 17 GM POWD.PACK PO SCH (08:09)
[2018-12-10 08:35] LABS: Anion Gap 6 mmol/L; Blood Urea Nitrogen 23 mg/dL (9-20); Calcium 9.1 mg/dL (8.4-10.2); Carbon Dioxide 34 mmol/L (22-30); Chloride 100 mmol/L (98-107); Glucose 82 mg/dL (74-99); Potassium 4.2 mmol/L (3.5-5.1); Sodium 140 mmol/L (137-145)
[2018-12-10 08:39] LABS: Anisocytosis Slight; Basophils % (A) 1 %; Eosinophils # (A) 0.2 k/uL (0-0.7); Eosinophils % (A) 3 %; HCT 36.5 % (39.0-53.0); Lymphocytes # (A) 1.4 k/uL (1.0-4.8); Lymphocytes % (A) 24 %; MCH 32.7 pg (25.0-35.0); MCHC 32.8 g/dL (31.0-37.0); MCV 99.5 fL (80.0-100.0); Macrocytosis Slight; Mean Platelet Volume 8.2; Monocytes # (A) 0.4 k/uL (0-1.0); Monocytes % (A) 7 %; Neutrophils # (A) 3.7 k/uL (1.3-7.7); Neutrophils % (A) 65 %; Platelet Count 215 k/uL (150-450); RBC 3.67 m/uL (4.30-5.90); RDW 16.5 % (11.5-15.5); WBC 5.8 k/uL (3.8-10.6)
--- NOTE | 2018-12-10 08:48 | P.PN ---
Subjective Progress Note Date: 12/10/18 Principal diagnosis: Multiple trauma, status post fall from ladder Patient is a very pleasant 68-year-old male who is seen and examined at the bedside for follow-up evaluation in regards to his cervical pain and right upper extremity weakness as well as low back pain and bilateral knee pain. He was admitted after sustaining a fall from a ladder. He denies loss of conscious at that time. He did hit his head. He was also found to have a minimally displaced comminuted manubrium fracture. He is in a knee immobilizer for the left lower extremity. He has remained nonweightbearing on the left lower extremity. He continues to experience pain in the posterior cervical spine with pain radiating over the right trapezius towards the shoulder. 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 He has significant right posterior shoulder pain as well. He denies any other recent injuries other than his significant fall from a ladder. He continues to experience increased low back pain following the fall. He does have known chron ic pain in his lumbar spine. He has history of neurostimulator battery placement. He is also previously had a pain pump placed. He does not feel he be able to tolerate bracing due to his pain pump placement. He has a past medical history which includes hyperlipidemia, hypertension, rheumatoid ar thritis, and sleep apnea. He feels his strength is improving over the weekend. Overall he feels his pain is better controlled. A sling for the right upper extremity was ordered yesterday but had not been delivered. He has no new complaints of the bedside. He feels he will be ready for discharge to a rehabilitation facility. Objective - Vital Signs Vital signs: Vital Signs Temp 97.9 F 12/09/18 21:00 Pulse 58 L 12/10/18 00:00 Resp 17 12/10/18 00:00 BP 102/62 12/09/18 22:34 Pulse Ox 94 L 12/09/18 21:00 Intake & Output 12/09/18 12/10/18 12/10/18 18:59 06:59 18:59 Intake Total 300 Output Total 900 850 Balance -900 -550 Intake: Oral 300 Output: Urine 900 850 Other: Voiding Method Urinal Urinal - Exam This is a pleasant 68-year-old male in no acute distress. He is alert and oriented 3. Exam of the head neck reveal no obvious deformity. There is only slight limitation in cervical rotation. There is minimal pain with palpation about cervical spine. Slight paracervical tenderness. Exam of the upper extremities reveal fairly good shoulder, elbow, wrist and finger motion. Mild pain with right shoulder motion. Exam of the low back reveals tenderness about the lower lumbar region today. Exam of the lower extremities reveals knee immobilizer in place on the left. He has full foot and ankle motion on the left. He is able to straight leg raise with pain on the left. Exam of the right lower extremity reveals 1-2+ joint effusion of the knee. He is moving the right leg a little better today. He is still unable to sustain extension when leg is lifted off the bed. He is able to actively flex his knee to 90 in bed. There is no deformity noted at the quadricep or patellar tendons. There is minimal pain on palpation about the knee. Pedal pulses are +2/4 bilaterally. - Labs CBC & Chem 7: 12/07/18 06:45 12/10/18 07:55 Labs: Abnormal Lab Results - Last 24 Hours (Table) 12/10/18 Range/Units 07:55 Carbon Dioxide 34 H (22-30) mmol/L BUN 23 H (9-20) mg/dL Creatinine 0.65 L (0.66-1.25) mg/dL Assessment and Plan (1) History of fall from ladder Current Visit: Yes Status: Acute Code(s): Z78.9 - OTHER SPECIFIED HEALTH STATUS SNOMED Code(s): 883363446 (2) Fracture of distal end of left femur Current Visit: Yes Status: Acute Code(s): S72.402A - UNSP FRACTURE OF LOWER END OF LEFT FEMUR, INIT FOR CLOS FX SNOMED Code(s): 068286991 (3) Rib fracture Current Visit: Yes Status: Acute Code(s): S22.39XA - FRACTURE OF ONE RIB, UNSP SIDE, INIT FOR CLOS FX SNOMED Code(s): 28404224 (4) Sternum fx Current Visit: Yes Status: Acute Code(s): S22.20XA - UNSP FRACTURE OF STERNUM, INIT ENCNTR FOR CLOSED FRACTURE SNOMED Code(s): 20177101 (5) Compression fracture of L4 vertebra Current Visit: Yes Status: Acute Code(s): S32.040A - WEDGE COMPRESSION FRACTURE OF FOURTH LUMBAR VERTEBRA, INIT SNOMED Code(s): 011384799 (6) Cervical radiculopathy Current Visit: Yes Status: Acute Code(s): M54.12 - RADICULOPATHY, CERVICAL REGION SNOMED Code(s): 99091777 Plan: The clinical findings are discussed the patient. I have ordered a computed t omography scan of the left knee to review at a follow-up with Dr. Shen Del Rosario. He is to continue with the knee immobilizer left lower extremity. He is to continue use a walker for ambulation. It is recommended he use a sling for the right upper extremity for comfort. We are unable to brace him for the L4 compression fracture secondary to his neurostimulator in place and increased abdominal body habitus. The patient will follow-up with Dr. Shen Del Rosario in 7-10 days.
--- NOTE | 2018-12-10 11:17 | CT ---
EXAMINATION TYPE: CT knee LT wo con DATE OF EXAM: 12/10/2018 COMPARISON: None HISTORY: Left sided knee pain, known fracture per patient CT DLP: 747.9 mGycm Automated exposure control for dose reduction was used. Unenhanced CT of the left knee was performed in the axial plane with reconstruction in the sagittal and coronal planes obtained. Bone and soft tis dilan window settings are submitted and reviewed. FINDINGS: There is mildly comminuted fracture noted to involve the supracondylar medial left femur approximatel y 1.6 cm cranial to the joint space. Displacement is approximately 2 mm. There is adjacent soft tissu e swelling and edema. No additional fractures are identified at this time. There is degenerative narr owing medial tibiofemoral joint space as well as patellofemoral joint space. Simple bone cyst is note d of the proximal tibia. IMPRESSION: There is mildly comminuted fracture noted to involve the supracondylar medial left femur approximatel y 1.6 cm cranial to the joint space.
[2018-12-10] MEDS: HYDROcodone/APAP 10-325MG 1 EACH TAB PO PRN ×2 (11:38→22:17)
--- NOTE | 2018-12-10 13:27 | P.PN ---
Subjective This is the first time on taking care of the patient on 12/10/2018 This is a pleasant 68 years old male who presents with fall from his bladder. He has multiple injuries including fracture of the ribs and sternum. Has been followed closely by surgery and orthopedic team. No plans for surgical interventions by both teams. General surgery and orthopedic team cleared The patient to discharge. Today patient was lying in bed smiling comfortable not in distress. Patient still complaining of from some neck pain 6/10 severity, he says that his weakness in the upper extremity is improving every day. He denies numbness. 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 A still complaining from left knee pain/10 with knee immobilizer is in place. And right knee pain 4/10 in severity. He has back pain about 8/10 and sternal pain/10 which is coming up more severe when he uses incentive spirometry. CT of the left knee recommended by orthopedic team showing: mild comminuted fracture of the medial supracondylar. He had chronic abdominal pain, with just mild with no significant tenderness or rebound tenderness. He has regular bowel movement today and he denies nausea vomiting. It looks like the patient is already been evaluated by both surgical team and cleared him for discharge. Patient supposed to go to [facility] upon discharge for inpatient physical rehab and he agreeable to it. However patient is pending insurance procedure and approval which takes at least 2 more days as per staff at least Also I informed the patient about his renal solid lesions and recommended through neurologist outpatient. Patient states that he follow up with Dr. Villaseñor for his kidney stone, risks including but not limited to cancer are explained for the pt and he verbalized understanding and acceptance also informed about his liver heamangioma. Objective - Vital Signs Vital signs: Vital Signs Temp 98.3 F 12/10/18 12:16 Pulse 52 L 12/10/18 12:16 Resp 16 12/10/18 12:16 BP 103/63 12/10/18 12:16 Pulse Ox 93 L 12/10/18 12:16 Intake & Output 12/09/18 12/10/18 12/10/18 18:59 06:59 18:59 Intake Total 300 Output Total 900 850 Balance -900 -550 Intake: Oral 300 Output: Urine 900 850 Other: Voiding Method Urinal Urinal Urinal - Exam GENERAL: The patient is alert and oriented x3, not in any acute distress. Well developed, well nourished. HEENT: Pupils are round and equally reacting to light. EOMI. No scleral icterus. No conjunctival pallor. Normocephalic, atraumatic. No pharyngeal erythema. No thyromegaly. CARDIOVASCULAR: S1 and S2 present. No murmurs, rubs, or gallops. PULMONARY: Chest is clear to auscultation, no wheezing or crackles. ABDOMEN: Soft, nontender, nondistended, normoactive bowel sounds. No palpable organomegaly. -MUSCULOSKELETAL: No joint swelling or deformity. Bilateral knee tenderness, knee mobilizer on the left side. Passive slink on his right upper extremity. Tenderness of the sternum with some redness on the neck and lower back. EXTREMITIES: No cyanosis, clubbing, or pedal edema. -NEUROLOGICAL: Gross neurological examination did not reveal any focal deficits. Cranial nerves are grossly intact. Strength is 5/5 in all extremities. Sensation is intact. SKIN: No rashes. - Labs CBC & Chem 7: 12/10/18 07:55 12/10/18 07:55 Labs: Abnormal Lab Results - Last 24 Hours (Table) 12/10/18 12/10/18 Range/Units 07:55 07:55 RBC 3.67 L (4.30-5.90) m/uL Hgb 12.0 L (13.0-17.5) gm/dL Hct 36.5 L (39.0-53.0) % RDW 16.5 H (11.5-15.5) % Carbon Dioxide 34 H (22-30) mmol/L BUN 23 H (9-20) mg/dL Creatinine 0.65 L (0.66-1.25) mg/dL Assessment and Plan Assessment: Final from ladder with multiple musculoskeletal injury, including cervical tenderness, sternal fracture, rib fracture, bilateral knee tenderness and lower back tenderness. mild comminuted fracture of the medial supracondylar of the left knee History of rheumatoid arthritis Essential hypertension Hyperlipidemia Plan: This is a pleasant 68 years old male who presents with fall and multiple musculoskeletal injury. His injuries looks stable. Patient has been already evaluated by orthopedic and general surgery team and both deemed cleared him for discharge. Patient needs to go to [facility] for inpatient rehab and pending insurance approval.Labs and medication were reviewed.. Continue same treatment. Continue with symptomatic treatment. Resume home medication. Monitor lytes and vitals. DVT and GI prophylaxis. Further recommendations of the clinical course of the patient DVT prophylaxis: Subcutaneous heparin GI Prophylaxis: Pepcid PT/OT: recommended SLIME Prognosis is guarded
--- NOTE | 2018-12-10 14:17 | P.PN ---
Subjective Progress Note Date: 12/10/18 Principal diagnosis: Sternal fracture Patient doing overall better. His breathing and pains have improved. Still having discomfort in the right shoulder, chest, back, left knee region. CAT scan from today does confirm fracture of the distal left femur. Orthopedic recommendations and plans noted. Objective - Vital Signs Vital signs: Vital Signs Temp 98.3 F 12/10/18 12:16 Pulse 52 L 12/10/18 12:16 Resp 16 12/10/18 12:16 BP 103/63 12/10/18 12:16 Pulse Ox 93 L 12/10/18 12:16 Intake & Output 12/09/18 12/10/18 12/10/18 18:59 06:59 18:59 Intake Total 300 Output Total 900 850 Balance -900 -550 Intake: Oral 300 Output: Urine 900 850 Other: Voiding Method Urinal Urinal Urinal - Exam Chest: Mild right-sided posterior chest wall tenderness, mild right shoulder tenderness Abdomen: Soft, nontender, nondistended - Labs CBC & Chem 7: 12/10/18 07:55 12/10/18 07:55 Labs: Abnormal Lab Results - Last 24 Hours (Table) 12/10/18 12/10/18 Range/Units 07:55 07:55 RBC 3.67 L (4.30-5.90) m/uL Hgb 12.0 L (13.0-17.5) gm/dL Hct 36.5 L (39.0-53.0) % RDW 16.5 H (11.5-15.5) % Carbon Dioxide 34 H (22-30) mmol/L BUN 23 H (9-20) mg/dL Creatinine 0.65 L (0.66-1.25) mg/dL Assessment and Plan (1) Sternum fx Narrative/Plan: Patient doing much better overall. Stable for transfer to rehab once bed available. Continue PT/OT. Continue pulmonary toilet. Current Visit: Yes Status: Acute Code(s): S22.20XA - UNSP FRACTURE OF STERNUM, INIT ENCNTR FOR CLOSED FRACTURE SNOMED Code(s): 07941464
[2018-12-10] MEDS: LISINOPRIL 20 MG TAB PO SCH (20:22)
[2018-12-10] MEDS: rOPINIRole HCL 4 MG TABLET PO SCH (20:22)
[2018-12-10] MEDS: ATORVASTATIN 40 MG TAB PO SCH (20:22)
[2018-12-11] MEDS: HYDROmorphone 0.5 MG/0.5 ML SYRINGE IVP PRN (04:23)
[2018-12-11] MEDS: HEPARIN SODIUM,PORCINE 5,000 UNIT/ML 1 ML VIAL SQ SCH ×2 (07:29→17:11)
[2018-12-11] MEDS: ALLOPURINOL 300 MG TAB PO SCH (07:29)
[2018-12-11] MEDS: BACLOFEN 10 MG TAB PO SCH ×3 (07:30→22:12)
[2018-12-11] MEDS: CALCIUM CARBONATE 500 MG CHEWABLE PO SCH (07:30)
[2018-12-11] MEDS: azaTHIOprine 50 MG TAB PO SCH (07:30)
[2018-12-11] MEDS: HYDROcodone/APAP 10-325MG 1 EACH TAB PO PRN ×2 (07:31→22:13)
[2018-12-11] MEDS: DOCUSATE 100 MG CAP PO SCH ×2 (07:32→22:12)
[2018-12-11] MEDS: DOXAZOSIN 4 MG TAB PO SCH ×3 (07:32→22:12)
[2018-12-11] MEDS: FAMOTIDINE 20 MG TAB PO SCH ×2 (07:33→22:12)
[2018-12-11] MEDS: FERROUS SULFATE 325 MG TAB PO SCH (07:33)
[2018-12-11] MEDS: POLYETHYLENE GLYCOL 3350 17 GM POWD.PACK PO SCH (07:33)
[2018-12-11] MEDS: GABAPENTIN 300 MG CAP PO SCH ×3 (07:33→22:13)
[2018-12-11] MEDS: MAGNESIUM HYDROXIDE 2,400 MG/10 ML CUP PO SCH ×2 (07:33→22:12)
[2018-12-11] MEDS: predniSONE 20 MG TAB PO SCH (07:33)
[2018-12-11] MEDS: clonazePAM 1 MG TAB PO SCH ×3 (10:45→22:13)
[2018-12-11] MEDS: CHOLECALCIFEROL 1,000 UNIT TAB PO SCH (10:45)
--- NOTE | 2018-12-11 11:46 | P.PN ---
<Bernadette Benedict - Last Filed: 12/11/18 11:43> Subjective Progress Note Date: 12/11/18 CHIEF COMPLAINT: Fall HISTORY OF PRESENT ILLNESS: Patient examined at the bedside this morning. He is awake and alert. Reports pain is tolerable. He is in good spirits and hoping to be discharged soon to rehab. PHYSICAL EXAM: VITAL SIGNS: Reviewed. GENERAL: Well-developed in no acute distress. HEENT: No sclera icterus. Extraocular movements grossly intact. Moist buccal mucosa. ABDOMEN: Soft. Nondistended. Nontender. NEUROLOGIC: Alert and oriented. Cranial nerves II through XII grossly intact. EXTREMITIES: Left knee immobilizer in place. ASSESSMENT: 1. Trauma, s/p fall from ladder 2. Sternal fracture 3. Right 9th rib fracture 4. Left femur fracture PLAN: CTS on consult. No surgical intervention recommended Orthopedics on consult. Recommend ambulation with walker. Sling to right upper extremity for comfort. Pain control Incentive spirometry Continue current diet Stable for discharge to [facility] pending insurance authorization Nurse practitioner note has been reviewed by physician. Signing provider agrees with the documented findings, assessment, and plan of care. Objective - Vital Signs Vital signs: Vital Signs Temp 97.8 F 12/11/18 05:00 Pulse 71 12/11/18 05:00 Resp 16 12/11/18 05:00 BP 101/62 12/11/18 05:00 Pulse Ox 97 12/11/18 08:46 Intake & Output 12/10/18 12/11/18 12/11/18 18:59 06:59 18:59 Intake Total 1550 Output Total 600 Balance 950 Intake: Oral 1550 Output: Urine 600 Other: Voiding Method Urinal Urinal Urinal # Voids 3 1 # Bowel Movements 1 1 - Labs CBC & Chem 7: 12/10/18 07:55 12/10/18 07:55 <Colin Gambino - Last Filed: 12/11/18 16:54> Subjective As above. Patient's pain is improving. He is ambulating in the room. Anticipate transfer to rehab tomorrow. Objective - Vital Signs Vital signs: Vital Signs Temp 97.5 F L 12/11/18 11:59 Pulse 64 12/11/18 11:59 Resp 18 12/11/18 11:59 BP 102/73 12/11/18 11:59 Pulse Ox 97 12/11/18 11:59 Intake & Output 12/10/18 12/11/18 12/11/18 18:59 06:59 18:59 Intake Total 1550 Output Total 600 Balance 950 Weight 127 kg Intake: Oral 1550 Output: Urine 600 Other: Voiding Method Urinal Urinal Urinal # Voids 3 1 3 # Bowel Movements 1 1 - Labs CBC & Chem 7: 12/10/18 07:55 12/10/18 07:55 Assessment and Plan (1) Sternum fx Current Visit: Yes Status: Acute Code(s): S22.20XA - UNSP FRACTURE OF STERNUM, INIT ENCNTR FOR CLOSED FRACTURE SNOMED Code(s): 33709915
[2018-12-11 15:18] VITALS: BMI 32.3
--- NOTE | 2018-12-11 20:44 | P.PN ---
Subjective This is the first time on taking care of the patient on 12/10/2018 This is a pleasant 68 years old male who presents with fall from his bladder. He has multiple injuries including fracture of the ribs and sternum. Has been followed closely by surgery and orthopedic team. No plans for surgical interventions by both teams. General surgery and orthopedic team cleared The patient to discharge. Today patient was lying in bed smiling comfortable not in distress. Patient still complaining of from some neck pain 6/10 severity, he says that his weakness in the upper extremity is improving every day. He denies numbness. 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 A still complaining from left knee pain/10 with knee immobilizer is in place. And right knee pain 4/10 in severity. He has back pain about 8/10 and sternal pain/10 which is coming up more severe when he uses incentive spirometry. CT of the left knee recommended by orthopedic team showing: mild comminuted fracture of the medial supracondylar. He had chronic abdominal pain, with just mild with no significant tenderness or rebound tenderness. He has regular bowel movement today and he denies nausea vomiting. It looks like the patient is already been evaluated by both surgical team and cleared him for discharge. Patient supposed to go to [facility] upon discharge for inpatient physical rehab and he agreeable to it. However patient is pending insurance procedure and approval which takes at least 2 more days as per staff at least Also I informed the patient about his renal solid lesions and recommended through neurologist outpatient. Patient states that he follow up with Dr. Villaseñor for his kidney stone, risks including but not limited to cancer are explained for the pt and he verbalized understanding and acceptance also informed about his liver heamangioma. 12/11/18 no change in clinical status , pt is improving gradually in everything,neck pain is down to 5/10. Lumbar pain down to 7/10. his sternal pain is at 4/10. he is moving in right upper ext more freely and above his head. pending placement Objective - Vital Signs Vital signs: Vital Signs Temp 97.5 F L 12/11/18 11:59 Pulse 64 12/11/18 11:59 Resp 18 12/11/18 11:59 BP 102/73 12/11/18 11:59 Pulse Ox 97 12/11/18 11:59 Intake & Output 12/11/18 12/11/18 12/12/18 06:59 18:59 06:59 Intake Total 1550 Output Total 600 Balance 950 Weight 127 kg Intake: Oral 1550 Output: Urine 600 Other: Voiding Method Urinal Urinal # Voids 1 3 # Bowel Movements 1 - Exam GENERAL: The patient is alert and oriented x3, not in any acute distress. Well developed, well nourished. HEENT: Pupils are round and equally reacting to light. EOMI. No scleral icterus. No conjunctival pallor. Normocephalic, atraumatic. No pharyngeal erythema. No thyromegaly. CARDIOVASCULAR: S1 and S2 present. No murmurs, rubs, or gallops. PULMONARY: Chest is clear to auscultation, no wheezing or crackles. ABDOMEN: Soft, nontender, nondistended, normoactive bowel sounds. No palpable organomegaly. -MUSCULOSKELETAL: No joint swelling or deformity. Bilateral knee tenderness, knee mobilizer on the left side. Passive slink on his right upper extremity. Tenderness of the sternum with some redness on the neck and lower back. EXTREMITIES: No cyanosis, clubbing, or pedal edema. -NEUROLOGICAL: Gross neurological examination did not reveal any focal deficits. Cranial nerves are grossly intact. Strength is 5/5 in all extremities. Sensation is intact. SKIN: No rashes. - Labs CBC & Chem 7: 12/10/18 07:55 12/10/18 07:55 Assessment and Plan Assessment: Final from [facility] with multiple musculoskeletal injury, including cervical tenderness, sternal fracture, rib fracture, bilateral knee tenderness and lower back tenderness. mild comminuted fracture of the medial supracondylar of the left knee History of rheumatoid arthritis Essential hypertension Hyperlipidemia Plan: This is a pleasant 68 years old male who presents with fall and multiple musculoskeletal injury. His injuries looks stable. Patient has been already evaluated by orthopedic and general surgery team and both deemed cleared him for discharge. Patient needs to go to [facility] for inpatient rehab and pending insurance approval.Labs and medication were reviewed.. Continue same treatment. Continue with symptomatic treatment. Resume home medication. Monitor lytes and vitals. DVT and GI prophylaxis. Further recommendations of the clinical course of the patient DVT prophylaxis: Subcutaneous heparin GI Prophylaxis: Pepcid PT/OT: recommended SLIME Prognosis is guarded
[2018-12-11] MEDS: LISINOPRIL 20 MG TAB PO SCH (22:09)
[2018-12-11] MEDS: rOPINIRole HCL 4 MG TABLET PO SCH (22:12)
[2018-12-11] MEDS: ATORVASTATIN 40 MG TAB PO SCH (22:12)
[2018-12-12] MEDS: HEPARIN SODIUM,PORCINE 5,000 UNIT/ML 1 ML VIAL SQ SCH ×2 (00:29→09:20)
--- NOTE | 2018-12-12 08:28 | P.PN ---
Subjective Progress Note Date: 12/12/18 Principal diagnosis: Multiple trauma, status post fall from ladder Patient is a very pleasant 68-year-old male who is seen and examined at the bedside for follow-up evaluation in regards to his cervical pain and right upper extremity weakness as well as low back pain and bilateral knee pain. He was admitted after sustaining a fall from a ladder. He denies loss of conscious at that time. He did hit his head. He was also found to have a minimally displaced comminuted manubrium fracture. He is in a knee immobilizer for the left lower extremity nondisplaced distal femur fracture. He has remained nonweightbearing on the left lower extremity. He continues to experience pain in the posterior cervical spine with pain radiating over the right trapezius towards the shoulder, however his pain is improved. His right shoulder pain is improved. He denies any other recent injuries other than his significant fall from a ladder. He continues to experience increased low back pain following the fall. He does have known chronic pain in his lumbar spine. He has history of neurostimulator battery placement. He is also previously had a pain pump placed. He does not feel he be able to tolerate bracing due to his pain pump placement. He has a past medical history which includes hyperlipidemia, hypertension, rheumatoid arthritis, and sleep apnea. He feels his strength is improving overall. He feels his pain is better controlled. He is planning on transferring to inpatient rehab today. Objective - Vital Signs Vital signs: Vital Signs Temp 97.7 F 12/12/18 05:00 Pulse 59 L 12/12/18 06:14 Resp 16 12/12/18 05:00 BP 117/77 12/12/18 05:00 Pulse Ox 96 12/12/18 05:00 Intake & Output 12/11/18 12/12/18 12/12/18 18:59 06:59 18:59 Intake Total 1130 Balance 1130 Weight 127 kg Intake: Oral 1130 Other: Voiding Method Urinal Urinal # Voids 3 3 - Exam This is a pleasant 68-year-old male in no acute distress. He is alert and oriented 3. Exam of the head neck reveal no obvious deformity. There is only slight limitation in cervical rotation. There is minimal pain with palpation about cervical spine. Slight paracervical tenderness. Exam of the upper extremities reveal fairly good shoulder, elbow, wrist and finger motion. Mild pain with right shoulder motion. Exam of the low back reveals tenderness about the lower lumbar region today. Exam of the lower extremities reveals knee immobilizer in place on the left. He has full foot and ankle motion on the left. He is able to straight leg raise with pain on the left. Exam of the right lower extremity reveals 1+ joint effusion of the knee. He is moving the right leg a little better today. He is still unable to sustain extension when leg is lifted off the bed. He is able to actively flex his knee to 90 in bed. There is no deformity noted at the quadricep or patellar tendons. There is minimal pain on palpation about the knee. Pedal pulses are +2/4 bilaterally. - Labs CBC & Chem 7: 12/10/18 07:55 12/10/18 07:55 Assessment and Plan (1) History of fall from ladder Current Visit: Yes Status: Acute Code(s): Z78.9 - OTHER SPECIFIED HEALTH STATUS SNOMED Code(s): 684054996 (2) Fracture of distal end of left femur Current Visit: Yes Status: Acute Code(s): S72.402A - UNSP FRACTURE OF LOWER END OF LEFT FEMUR, INIT FOR CLOS FX SNOMED Code(s): 608111965 (3) Rib fracture Current Visit: Yes Status: Acute Code(s): S22.39XA - FRACTURE OF ONE RIB, UNSP SIDE, INIT FOR CLOS FX SNOMED Code(s): 26531051 (4) Sternum fx Current Visit: Yes Status: Acute Code(s): S22.20XA - UNSP FRACTURE OF STERNUM, INIT ENCNTR FOR CLOSED FRACTURE SNOMED Code(s): 35309223 (5) Compression fracture of L4 vertebra Current Visit: Yes Status: Acute Code(s): S32.040A - WEDGE COMPRESSION FRACTURE OF FOURTH LUMBAR VERTEBRA, INIT SNOMED Code(s): 213839184 (6) Cervical radiculopathy Current Visit: Yes Status: Acute Code(s): M54.12 - RADICULOPATHY, CERVICAL REGION SNOMED Code(s): 97426350 Plan: The clinical findings are discussed the patient. He is to continue with the knee immobilizer left lower extremity. He is to continue use a walker for ambulation. It is recommended he use a sling for the right upper extremity for comfort. We are unable to brace him for the L4 compression fracture secondary to his neurostimulator in place and increased abdominal body habitus. The patient will follow-up with Dr. Shen Del Rosario in 7-10 days. Okay from orthopedic standpoint for transfer to inpatient rehab today.
--- NOTE | 2018-12-12 09:09 | P.DS ---
<Bernadette Benedict Dao - Last Filed: 12/12/18 09:09> Providers Expected date of discharge: 12/12/18 Hospital Course: 68-year-old male who presented to the emergency room after sustaining a fall off a ladder. Patient was found to have sternal fracture, right ninth rib fracture, and left femur fracture. Patient was evaluated by cardiothoracic service during hospitalization and no surgical intervention was recommended. Patient was also evaluated by orthopedics. Patient underwent aspiration of left knee. He remains in a left lower extremity immobilizer. Orthopedics recommends ambulation with a walker and sling to right upper extremity for comfort. Unable to tolerate back brace due to pain pump placement. Patient is stable for discharge to [facility]. Please see EMR for further hospital course details. Discharge diagnosis: 1. Trauma, s/p fall from ladder 2. Sternal fracture 3. Right 9th rib fracture 4. Left distal femur fracture 5. Compression fracture of L4 vertebrae 6. Cervical radiculopathy Nurse practitioner note has been reviewed by physician. Signing provider agrees with the documented findings, assessment, and plan of care. Plan - Discharge Summary Discharge Rx Participant: No New Discharge Prescriptions: New Docusate [Colace] 100 mg PO BID cap Magnesium Hydroxide [Milk of Magnesia Concentrate] 2,400 mg PO BID ml Polyethylene Glycol 3350 [Miralax] 17 gm PO DAILY powd.pack Cholecalciferol [Vitamin D3] 1,000 unit PO DAILY@1200 tab predniSONE 60 mg PO DAILY 7 Days tab Continue rOPINIRole HCL [Requip] 4 mg PO HS Simvastatin [Zocor] 80 mg PO HS Ramipril 10 mg PO HS Methotrexate Sodium [Methotrexate] 20 mg PO MO Ferrous Sulfate [Iron (65 MG Elemental)] 325 mg PO DAILY azaTHIOprine [Imuran] 50 mg PO DAILY Folic Acid 1 mg PO DAILY Allopurinol [Zyloprim] 300 mg PO DAILY Doxazosin Mesylate [Cardura] 4 mg PO BID Calcium 1000mg 1,000 mg PO DAILY Baclofen [Lioresal] 20 mg PO TID Gabapentin [Neurontin] 300 mg PO TID clonazePAM [KlonoPIN] 4 mg PO TID #18 tablet HYDROcodone/APAP 10-325MG [Henagar 10-325] 1 tab PO TID PRN #9 tab PRN Reason: Pain Discontinued Morphine Sulfate ER [Ms Contin 60Mg] 60 mg PO Q12HR Glucosam/Tim-Msm1/C/Harish/Bosw [Glucosamine-Chondroitin Tablet] 1 tab PO DAILY Certolizumab Pegol [Cimzia] 400 mg SQ Q28D Discharge Medication List Allopurinol [Zyloprim] 300 mg PO DAILY 10/14/15 [History] Doxazosin Mesylate [Cardura] 4 mg PO BID 10/14/15 [History] Ferrous Sulfate [Iron (65 MG Elemental)] 325 mg PO DAILY 10/14/15 [History] Folic Acid 1 mg PO DAILY 10/14/15 [History] Methotrexate Sodium [Methotrexate] 20 mg PO MO 10/14/15 [History] Ramipril 10 mg PO HS 10/14/15 [History] Simvastatin [Zocor] 80 mg PO HS 10/14/15 [History] azaTHIOprine [Imuran] 50 mg PO DAILY 10/14/15 [History] rOPINIRole HCL [Requip] 4 mg PO HS 10/14/15 [History] Baclofen [Lioresal] 20 mg PO TID 12/05/18 [History] Calcium 1000mg 1,000 mg PO DAILY 12/05/18 [History] Gabapentin [Neurontin] 300 mg PO TID 12/05/18 [History] Cholecalciferol [Vitamin D3] 1,000 unit PO DAILY@1200 tab 12/12/18 [Rx] Docusate [Colace] 100 mg PO BID cap 12/12/18 [Rx] HYDROcodone/APAP 10-325MG [Henagar 10-325] 1 tab PO TID PRN #9 tab 12/12/18 [Rx] Magnesium Hydroxide [Milk of Magnesia Concentrate] 2,400 mg PO BID ml 12/12/18 [Rx] Polyethylene Glycol 3350 [Miralax] 17 gm PO DAILY powd.pack 12/12/18 [Rx] clonazePAM [KlonoPIN] 4 mg PO TID #18 tablet 12/12/18 [Rx] predniSONE 60 mg PO DAILY 7 Days tab 12/12/18 [Rx] Follow up Appointment(s)/Referral(s): Colin Gambino MD [Medical Doctor] - As Needed Imelda Arriola DO [Doctor of Osteopathic Medicine] - 10 Days Lorenzo Thomas MD [Primary Care Provider] - 2 Weeks Eileen Watkins MD [STAFF PHYSICIAN] - 4 Weeks (hemangioma of the liver) [facility], [NON-STAFF] - Abbi Adair MD [STAFF PHYSICIAN] - 3 Weeks (For injection.) Shen Del Rosario DO [Doctor of Osteopathic Medicine] - 1 Week Ted Villaseñor MD [STAFF PHYSICIAN] - 3 Weeks (abnormal CT scan.) Patient Instructions/Handouts: Leg Fracture (DC) Activity/Diet/Wound Care/Special Instructions: Itz 1. Patient may use right upper extremity sling for comfort support as needed 2. Patient should avoid excessive bending, twisting, lifting; no lifting greater than 10 pounds 3. Toe touch wt bearing LLE. 4. Maintain knee immobilizer LLE, may remove for bathing. Regular diet PAPER RX FOR CONTROLLED MEDS IN CHART Discharge Disposition: TRANSFER TO SNF/ECF <Colin Gambino - Last Filed: 12/12/18 09:43> Providers Date of admission: 12/05/18 15:33 Attending physician: Colin Gambino Consults: 12/05/18 15:33 Consult Physician Urgent Consulting Provider: William Ugarte Consult Reason/Comments: Sternal fracture Do you want consulting provider notified?: Yes Consult Physician Urgent Consulting Provider: David Kenney Consult Reason/Comments: Femur fracture Do you want consulting provider notified?: Yes 12/05/18 16:01 Consult Physician Urgent Consulting Provider: Lorenzo Thomas Consult Reason/Comments: Medical management Do you want consulting provider notified?: Yes 12/07/18 08:58 Consult Physician Urgent Consulting Provider: Imelda Arriola Consult Reason/Comments: Eval cervical and lumbar pain/weakness, s/p fall from ladder. Do you want consulting provider notified?: Yes Primary care physician: Lorenzo Thomas - Discharge Diagnosis(es) (1) Sternum fx Current Visit: Yes Status: Acute Hospital Course: As above. Patient doing better today. His pain is gradually improving. Stable for transfer. Outpatient follow-up with orthopedics, neurology, primary care will be arranged.
[2018-12-12] MEDS: CHOLECALCIFEROL 1,000 UNIT TAB PO SCH (09:20)
[2018-12-12] MEDS: MAGNESIUM HYDROXIDE 2,400 MG/10 ML CUP PO SCH (09:22)
[2018-12-12] MEDS: GABAPENTIN 300 MG CAP PO SCH (09:22)
[2018-12-12] MEDS: FAMOTIDINE 20 MG TAB PO SCH (09:23)
[2018-12-12] MEDS: CALCIUM CARBONATE 500 MG CHEWABLE PO SCH (09:23)
[2018-12-12] MEDS: POLYETHYLENE GLYCOL 3350 17 GM POWD.PACK PO SCH (09:23)
[2018-12-12] MEDS: DOCUSATE 100 MG CAP PO SCH (09:24)
[2018-12-12] MEDS: ALLOPURINOL 300 MG TAB PO SCH (09:24)
[2018-12-12] MEDS: FERROUS SULFATE 325 MG TAB PO SCH (09:24)
[2018-12-12] MEDS: clonazePAM 1 MG TAB PO SCH (09:24)
[2018-12-12] MEDS: BACLOFEN 10 MG TAB PO SCH (09:24)
[2018-12-12] MEDS: azaTHIOprine 50 MG TAB PO SCH (09:25)
[2018-12-12] MEDS: DOXAZOSIN 4 MG TAB PO SCH (09:26)
[2018-12-12] MEDS: predniSONE 20 MG TAB PO SCH (09:27)
[2018-12-12] MEDS: HYDROcodone/APAP 10-325MG 1 EACH TAB PO PRN (09:28)
[2018-12-12] MEDS ORDERED: HYDROmorphone 2 MG TAB PO PRN ×2 (11:55→11:56)
[2018-12-12 12:40] VITALS: BP 115/67; PULSE 80; RESP 17; TEMP 98.4
--- NOTE | 2018-12-12 12:48 | P.PN ---
Subjective This is the first time on taking care of the patient on 12/10/2018 This is a pleasant 68 years old male who presents with fall from his bladder. He has multiple injuries including fracture of the ribs and sternum. Has been followed closely by surgery and orthopedic team. No plans for surgical interventions by both teams. General surgery and orthopedic team cleared The patient to discharge. Today patient was lying in bed smiling comfortable not in distress. Patient still complaining of from some neck pain 6/10 severity, he says that his weakness in the upper extremity is improving every day. He denies numbness. Patient says that his both hand cable tester are weak but no symmetry was noted upon my examination. A still complaining from left knee pain/10 with knee immobilizer is in place. And right knee pain 4/10 in severity. He has back pain about 8/10 and sternal pain/10 which is coming up more severe when he uses incentive spirometry. CT of the left knee recommended by orthopedic team showing: mild comminuted fracture of the medial supracondylar. He had chronic abdominal pain, with just mild with no significant tenderness or rebound tenderness. He has regular bowel movement today and he denies nausea vomiting. It looks like the patient is already been evaluated by both surgical team and cleared him for discharge. Patient supposed to go to [facility] upon discharge for inpatient physical rehab and he agreeable to it. However patient is pending insurance procedure and approval which takes at least 2 more days as per staff at least Also I informed the patient about his renal solid lesions and recommended through neurologist outpatient. Patient states that he follow up with Dr. Villaseñor for his kidney stone, risks including but not limited to cancer are explained for the pt and he verbalized understanding and acceptance also informed about his liver heamangioma. 12/11/18 no change in clinical status , pt is improving gradually in everything,neck pain is down to 5/10. Lumbar pain down to 7/10. his sternal pain is at 4/10. he is moving in right upper ext more freely and above his head. pending placement 12/12/2018 Patient was sitting in bed, smiling and pleasant. He was still complaining of from his lower back pain and sternal pain and tenderness. His weakness in his upper extremity are significantly improved his only problem is that when he raises his arms he has pain at his sternal fracture site. The pains are significantly improving. Patient is aware about his right kidney lesion and he said it back to me and that he is going to follow up with Dr. Villaseñor. Risks including but not limited to cancer explained to the patient and he said it back to me. He verbalized understanding and acceptance. Also I told me he is going to follow-up with Dr. Marroquin, for his orthopedic problems. Patient is c urrently under general surgery team and the plan for discharge today. Patient is medically stable for discharge but he needs follow-up as an outpatient. Problems and management plan and discharge follow-up are explained with the patient in details and he verbalized understanding and acceptance. Objective - Vital Signs Vital signs: Vital Signs Temp 97.7 F 12/12/18 05:00 Pulse 59 L 12/12/18 06:14 Resp 16 12/12/18 05:00 BP 117/77 12/12/18 05:00 Pulse Ox 96 12/12/18 05:00 Intake & Output 12/11/18 12/12/18 12/12/18 18:59 06:59 18:59 Intake Total 1130 Balance 1130 Weight 127 kg Intake: Oral 1130 Other: Voiding Method Urinal Urinal Urinal # Voids 3 3 - Exam GENERAL: The patient is alert and oriented x3, not in any acute distress. Well developed, well nourished. HEENT: Pupils are round and equally reacting to light. EOMI. No scleral icterus. No conjunctival pallor. Normocephalic, atraumatic. No pharyngeal erythema. No thyromegaly. CARDIOVASCULAR: S1 and S2 present. No murmurs, rubs, or gallops. PULMONARY: Chest is clear to auscultation, no wheezing or crackles. ABDOMEN: Soft, nontender, nondistended, normoactive bowel sounds. No palpable organomegaly. -MUSCULOSKELETAL: No joint swelling or deformity. Bilateral knee tenderness, knee mobilizer on the left side. Passive slink on his right upper extremity. Tenderness of the sternum with some redness on the neck and lower back. EXTREMITIES: No cyanosis, clubbing, or pedal edema. -NEUROLOGICAL: Gross neurological examination did not reveal any focal deficits. Cranial nerves are grossly intact. Strength is 5/5 in all extremities. Sensation is intact. SKIN: No rashes. - Labs CBC & Chem 7: 12/10/18 07:55 12/10/18 07:55 Assessment and Plan Assessment: Final from ladder with multiple musculoskeletal injury, including cervical tenderness, sternal fracture, rib fracture, bilateral knee tenderness and lower back tenderness. mild comminuted fracture of the medial supracondylar of the left knee History of rheumatoid arthritis Essential hypertension Hyperlipidemia Plan: This is a pleasant 68 years old male who presents with fall and multiple musculoskeletal injury. His injuries looks stable. Patient has been already evaluated by orthopedic and general surgery team and both deemed cleared him for discharge. Patient needs to go to [facility] for inpatient rehab and pending insurance approval.Labs and medication were reviewed.. Continue same treatment. Continue with symptomatic treatment. Resume home medication. Monitor lytes and vitals. DVT and GI prophylaxis. Further recommendations of the clinical course of the patient DVT prophylaxis: Subcutaneous heparin GI Prophylaxis: Pepcid PT/OT: recommended SLIME Prognosis is guarded
== END 2018-12-12 13:22 | DRG 565 ==
LOC: EC 13:40 → 3SCARD 15:33 → 3NMEDONC 12-07 15:10
PROVIDERS: ADMIT Surgery; ATTEND Surgery
DX: S22.21XA Fracture of manubrium, initial encounter for closed fracture (principal); S32.040A Wedge compression fracture of fourth lumbar vertebra, initial encounter for closed fracture; S22.41XA Multiple fractures of ribs, right side, initial encounter for closed fracture; S72.452A Displaced supracondylar fracture without intracondylar extension of lower end of left femur, initial encounter for closed fracture; K51.90 Ulcerative colitis, unspecified, without complications; M48.02 Spinal stenosis, cervical region; M50.122 Cervical disc disorder at C5-C6 level with radiculopathy; M46.92 Unspecified inflammatory spondylopathy, cervical region; G89.21 Chronic pain due to trauma; E78.5 Hyperlipidemia, unspecified; N40.0 Benign prostatic hyperplasia without lower urinary tract symptoms; I49.3 Ventricular premature depolarization; K40.90 Unilateral inguinal hernia, without obstruction or gangrene, not specified as recurrent; K59.00 Constipation, unspecified; N20.0 Calculus of kidney; I10 Essential (primary) hypertension; R25.1 Tremor, unspecified; M06.9 Rheumatoid arthritis, unspecified; G47.33 Obstructive sleep apnea (adult) (pediatric); E66.9 Obesity, unspecified; Z68.32 Body mass index [BMI] 32.0-32.9, adult; F17.290 Nicotine dependence, other tobacco product, uncomplicated; Z71.6 Tobacco abuse counseling; Z79.891 Long term (current) use of opiate analgesic; Z79.899 Other long term (current) drug therapy; Z87.442 Personal history of urinary calculi; Z99.89 Dependence on other enabling machines and devices; Z96.9 Presence of functional implant, unspecified; Z87.828 Personal history of other (healed) physical injury and trauma; Z82.49 Family history of ischemic heart disease and other diseases of the circulatory system; W11.XXXA Fall on and from ladder, initial encounter; Z81.1 Family history of alcohol abuse and dependence; Z82.3 Family history of stroke
CPT/HCPCS: 36415; 70450; 71045; 71046; 71260; 72125; 72170; 74177; 80048; 80053; 80306; 80320; 81003; 84484; 85025; 85610; 85730; 86850; 86900; 86901; 93005; 94760; 96361; 96374; 96375; 96376; 99291

== ENCOUNTER → 2019-02-11 | Outpatient (CLI) | payer MEDICARE ==
--- NOTE | 2019-02-11 13:42 | CT ---
EXAMINATION TYPE: CT lumbar spine wo con DATE OF EXAM: 02/11/2019 COMPARISON: 12/05/2018 HISTORY: 68-year-old male Lumbar pain, wedge compression fracture TECHNIQUE: Contiguous axial scanning of the upper spine without IV contrast. Coronal and sagittal rec onstructions performed. CT DLP: 2754.2 mGycm Automated exposure control for dose reduction was used. FINDINGS: Spinal stimulator array demonstrates leads entering the T11-T12 laminectomy space and ascending up be yond the [id number] within the spinal canal. An additional tiny caliber lead enters the spinal can al posteriorly at the L2-L3 level. There is osteopenia. Complex compression fracture of T11 with approximately 50% anterior height loss. No retropulsion into the spinal canal. Mild paravertebral hematoma and swelling is demonstrated. Mild chronic superior endplate deformity of L4, unchanged from 12/05/2018. Bilateral renal calculi measuring up to 1.0 cm on the right and at least 1.2 cm on the left, partiall y visualized. There is hypertrophic facet arthropathy throughout, greatest in the mid to lower lumbar spine with gr shirin 1 anterolisthesis at L4-L5. Disc ossified complex towards the left at T12-L1. On the right, changes often variable moderate neural foraminal stenoses, particularly from L3 to S1 l evels. On the left, changes result in variable moderate neuroforaminal stenoses including at T12-L1 and L3-S 1 levels. There may be a moderate or severe spinal canal stenosis at L4-L5 and mild multiple additional levels. IMPRESSION: 1. ACUTE TO SUBACUTE COMPLEX VERTEBRAL BODY FRACTURE OF T11 WITH RESULTANT ANTERIOR WEDGING AND 50% A NTERIOR HEIGHT LOSS. NO RETROPULSION INTO THE SPINAL CANAL. 2. OLD SUPERIOR ENDPLATE DEFORMITY OF L4. 3. HYPERTROPHIC FACET ARTHROPATHY WITH GRADE 1 ANTEROLISTHESIS AT L4-L5. ALONG WITH UNDERLYING DEGENE RATIVE DISC DISEASE, THERE MAY BE A MODERATE TO SEVERE SPINAL CANAL STENOSIS AT THIS LEVEL. 5. VARIABLE MODERATE NEUROFORAMINAL STENOSES MID TO LOWER LUMBAR SPINE AND ALSO ON THE LEFT AT T12-L1 . 6. BILATERAL NEPHROLITHIASIS MEASURING UP TO AT LEAST 1.2 CM, PARTIALLY VISUALIZED.
== END | disposition home or self-care (01) ==
LOC: RADCTMAIN 11:53
PROVIDERS: ATTEND Orthopaedic Surgery Orthopaedic Surgery of the Spine
DX: M48.061 Spinal stenosis, lumbar region without neurogenic claudication (principal); M43.16 Spondylolisthesis, lumbar region; M51.36 Other intervertebral disc degeneration, lumbar region; M46.96 Unspecified inflammatory spondylopathy, lumbar region; M43.8X6 Other specified deforming dorsopathies, lumbar region; S32.040D Wedge compression fracture of fourth lumbar vertebra, subsequent encounter for fracture with routine healing; E66.9 Obesity, unspecified
CPT/HCPCS: 72131

== ENCOUNTER → 2019-05-06 | Outpatient (CLI) | payer MEDICARE ==
[2019-05-06 14:21] LABS: Appearance,Urine Clear (Clear); Bilirubin,Urine Negative (Negative); Blood,Urine Negative (Negative); Color,Urine Yellow; Glucose,Urine (UA) Negative (Negative); Ketones,Urine Negative (Negative); Leukocyte Esterase,Urine Negative (Negative); Nitrite,Urine Negative (Negative); PH, Urine 6.5 (5.0-8.0); Protein,Urine Negative (Negative); Specific Gravity,Urine 1.008 (1.001-1.035); Urobilinogen,Urine <2.0 mg/dL (<2.0)
[2019-05-06 14:23] LABS: Anisocytosis Slight; HCT 37.3 % (39.0-53.0); HGB 12.4 gm/dL (13.0-17.5); MCH 32.6 pg (25.0-35.0); MCHC 33.2 g/dL (31.0-37.0); MCV 98.1 fL (80.0-100.0); Macrocytosis Slight; Partial Thromboplastin Time 26.8 sec (22.0-30.0); Platelet Count 198 k/uL (150-450); Prothrombin Time 10.4 sec (9.0-12.0); RBC 3.81 m/uL (4.30-5.90); RDW 16.5 % (11.5-15.5); WBC 6.2 k/uL (3.8-10.6)
[2019-05-06 14:27] LABS: ALT 21 U/L (21-72); AST 19 U/L (17-59); African American GFR (CKD) >90 (>60 ml/min/1.73 sqM); Albumin 4.1 g/dL (3.5-5.0); Alkaline Phosphatase 63 U/L (38-126); Anion Gap 8 mmol/L; Blood Urea Nitrogen 12 mg/dL (9-20); Carbon Dioxide 30 mmol/L (22-30); Chloride 101 mmol/L (98-107); Glucose 97 mg/dL (74-99); Potassium 4.1 mmol/L (3.5-5.1); Sodium 139 mmol/L (137-145); Total Bilirubin 0.6 mg/dL (0.2-1.3); Total Protein 6.8 g/dL (6.3-8.2)
== END | disposition home or self-care (01) ==
LOC: LABPAT 13:14
PROVIDERS: ATTEND Orthopaedic Surgery
DX: Z01.812 Encounter for preprocedural laboratory examination (principal); M17.12 Unilateral primary osteoarthritis, left knee; Z79.01 Long term (current) use of anticoagulants
CPT/HCPCS: 36415; 80053; 81003; 85027; 85610; 85730; 87070

== ENCOUNTER 2019-05-14 07:48 | Day surgery (SDC) | payer MEDICARE ==
[~2019-05-14 07:48] MED LIST changes: +ACETAMINOPHEN TAB 500 MG TAB PO ONE; +DEXAMETHASONE SOD PHOSPHATE 10 MG/ML 1 ML VIAL IV ONE; +GABAPENTIN 300 MG CAP PO ONE; -LACTATED RINGERS 1,000 ML IV SCH; +LIDOCAINE 1% 20 ML VIAL (10MG/ML) FOR IV START INTRADERMA PRN; +MELOXICAM 7.5 MG TAB PO ONE; +MIDAZOLAM 2 MG/2 ML VIAL IV PRN; +ONDANSETRON 4 MG/2 ML VIAL IVP ONE; +ROPIVACAINE 246.25 MG, EPINEPHrine 0.5 MG, KETOROLAC 30 MG, cloNIDine HCL/PF 80 MCG, WA... MISCELLANE ONE; +SCOPOLAMINE 1.5MG/72HR PATCH TRANSDERM ONE; +TRANEXAMIC ACID 1,000 MG in SODIUM CHLORIDE 0.9% 100 ML IVPB ONE; +ceFAZolin 3 GM in SODIUM CHLORIDE 0.9% 100 ML IVPB ONE
[2019-05-14] MEDS ORDERED: DIAZEPAM 5 MG TAB PO PRN (08:52)
[2019-05-14] MEDS ORDERED: NA PHOS,M-B/NA PHOS,DI-BA 133 ML ENEMA RECTAL PRN (08:52)
[2019-05-14] MEDS ORDERED: ONDANSETRON 4 MG/2 ML VIAL IVP PRN (08:52)
[2019-05-14] MEDS ORDERED: MAGNESIUM HYDROXIDE 2,400 MG/10 ML CUP PO PRN (08:52)
[2019-05-14] MEDS ORDERED: HYDROmorphone 0.5 MG/0.5 ML SYRINGE IVP PRN ×2 (08:52)
[2019-05-14] MEDS ORDERED: HYDROcodone/APAP 5-325MG 1 EACH TAB PO PRN ×2 (08:52)
[2019-05-14] MEDS ORDERED: NALOXONE 0.4 MG/ML 1 ML VIAL IV PRN (08:52)
[2019-05-14] MEDS ORDERED: BISACODYL 10 MG SUPP RECTAL PRN (08:52)
[2019-05-14] MEDS ORDERED: hydrOXYzine PAMOATE 25 MG CAP PO PRN (08:52)
[2019-05-14] MEDS: LACTATED RINGERS 1,000 ML IV SCH (08:53)
[2019-05-14] MEDS ORDERED: ROCURONIUM BROMIDE 10 MG/ML 10 ML VIAL IV ONE (09:18)
[2019-05-14] MEDS ORDERED: fentaNYL (PF) 50 MCG/ML 2 ML AMP ONE (09:18)
[2019-05-14] MEDS ORDERED: TRANEXAMIC ACID 1,000 MG/10 ML VIAL ONE (09:18)
[2019-05-14] MEDS ORDERED: PROPOFOL 10 MG/ML 20 ML VIAL IV ONE (09:18)
[2019-05-14] MEDS ORDERED: MIDAZOLAM 2 MG/2 ML VIAL ONE (09:18)
[2019-05-14] MEDS ORDERED: LIDOCAINE 1% INJ 10MG/ML (20 ML MDV) ONE (09:18)
[2019-05-14] MEDS ORDERED: SODIUM CHLORIDE 0.9% 100 ML BAG ONE (09:18)
[2019-05-14] MEDS ORDERED: ceFAZolin 3,000 MG in SODIUM CHLORIDE 0.9% IRRIGATIO 3,000 ML IRRIGATION ONE (09:24)
--- NOTE | 2019-05-14 09:53 | P.ANPRN ---
Procedure Note - Anesthesia - Nerve Block Performed Left Adductor Canal Infusion Time Out Performed: Yes Date of Procedure: 05/14/19 Procedure Start Time: :02 Procedure Stop Time: :15 Location of Patient Procedure: PreOp Indication: Acute Post-Operative Pain, Requested by Surgeon Sedation Type: Sedate with meaningful contact maintained Preparation: Sterile Prep, Sterile Dressing Position: Supine Catheter: Indwelling Needle Types: Pajunk Needle Gauge: 18 Ultrasound used to visualize needle placement: Yes Ultrasound used to observe medication spread: Yes Injectate: 0.5% Ropivacaine (see comment for volume) (20 ml) Blood Aspirated: No Pain Paresthesia on Injection Noted: No Resistance on Injection: Normal Image Stored and Saved: Yes Events: Uneventful and Well Tolerated
--- NOTE | 2019-05-14 10:38 | P.OP ---
Date of Procedure: 05/14/19 Preoperative Diagnosis: Severe osteoarthritis left knee Postoperative Diagnosis: Severe osteoarthritis left knee Procedure(s) Performed: Left total knee arthroplasty Implants: [employer] Journey II CR Oxinium cruciate retaining femoral component size 7, left [employer] Journey left nonporous tibial baseplate size 6 [employer] Journey II, XLPE Deep Dished articular insert, size 9 mm, Size 5- 6 left [employer] Journey BCS resurfacing oval patellar component, 32 mm All components were cemented using [place] R bone cement.. The articulation is Oxinium on polyethylene. Anesthesia: spinal Surgeon: Shen Del Rosario Ophthalmic Asst #1: Isidra Hodges Estimated Blood Loss (ml): 50 Pathology: other (Bone and cartilage) Condition: stable Disposition: PACU Indications for Procedure: After failure of conservative treatment we discussed the surgical and nonsurgical treatment options at length. Patient wishes to proceed with a total knee arthroplasty. Complications specific to this procedure were discussed at length, including but not limited to infection, bleeding, stiffness, and nerve injury. Patient is aware of all these complications and informed consent was obtained Operative Findings: The operative findings are consistent with severe osteoarthritis of the left knee Description of Procedure: Patient was seen in the preoperative area consent was reviewed and operative site was marked with a skin marker. An adductor canal pain catheter was placed by anesthesia in the preoperative area. Patient was then brought to the operating room and given preoperative antibiotics intravenously. A spinal anesthetic was administered by the anesthesia department. A tourniquet was placed on the upper thigh and the lower extremity was prepped and draped in usual sterile fashion. A gram of transexamic acid was given. A universal timeout was then performed which confirmed the patient's name, surgical site, ALLERGIES, and consent. The lower extremity was then exsanguinated and tourniquet was inflated to 250 mmHg. A standard and anterior midline approach to the knee was performed. The skin and subcutaneous tissue was dissected down to the patellar tendon. A medial parapatellar arthrotomy was then performed. The knee was then extended, the patellar was everted, and the knee was again flexed. Anterior horns of both menisci were excised, and a release was performed to the posterior medial aspect of the knee. On gross visual inspection, there was complete loss of articular cartilage in the medial and patellofemoral joint spaces. There was also significant cartilage damage in the lateral compartment. There were multiple periarticular osteophytes which were then removed with a Ronguer. The femoral canal was then opened with the appropriate drill, and the intramedullary femoral cutting guide was then placed and set for 5 of valgus. The distal femoral cutting block was then pinned in place, and the distal femur was then cut. The cutting block was then removed and the cut was checked for flatness. Next, the sizing guide was then placed and set for 3 external rotation based off of the epicondylar axis and Whitesides line. After the femur was sized, the appropriate 4-in-1 cutting block was then pinned in place. The anterior condyles were cut without notching. The posterior and chamfer cuts were performed while protecting the collateral ligaments. The cutting block was then removed, and the femoral canal was plugged with autologous bone. Attention was then directed to the tibia. The remaining ACL was removed with a Ronguer, and the tibia was then gently subluxed forward with a large bent knee retractor. Any remaining menisci was excised. The posterior lateral corner was cauterized in order to cauterize the lateral geniculate artery. The extra medullary tibial cutting guide was then placed, set for the appropriate rotation, slope, and depth of resection. The proximal tibia cutting guide was then pinned in place. Proximal tibia was then cut and sized. Next trials were then placed with the appropriate-sized insert. The knee was able to fully extend and flex to 130 and was stable throughout all range of motion. The knee was then extended, patella everted. Patella was then measured, and then using an osteotomy guide, the patella was cut at the appropriate level. The patella was then measured and drilled and the patella trial was then placed. The knee was then taken through range of motion with the patella trial and the patella tracked normally. The knee was then extended patella trial was then removed and the patella was everted. Knee was then flexed and lug holes were drilled through the femoral trial and the femoral trial was then removed. The tibial was then exposed, and the tibial broach guide was then pinned in place after it was set for the appropriate rotation to allow for the most coverage without overhang. The tibia was then reamed and broached. The cut surfaces of bone were then irrigated with pulsatile lavage. The posterior structures were injected with the ropivacaine solution. The knee was also irrigated with Irrisept solution. The components were then opened, the cement was mixed, and the components were then cemented in place. The cement was allowed to harden with the knee in full extension. While the cement was hardening, the remaining soft tissues were then injected with a ropivacaine solution, which consisted of 246.25 mg of ropivacaine, 0.5 mg of epinephrine, 30 mg of Toradol, 80 g of clonidine, and 48.45 mL of sterile water, for a total of 100 mL of fluid injected. After the cemented hardened. The tourniquet was released, and hemostasis was obtained. A second gram of transexamic acid was given. The knee was again irrigated. The knee was again taken through range of motion and found to be stable throughout all range of motion of 0-130, and the patella tracked normally. The fascia was then closed with #2 strata fix suture. The subcutaneous tissue was closed with 3-0 Vicryl and 3-0 strata fix. Dermabond glue was used for the skin and placed with the knee in flexion. The patient was placed in a sterile silver dressing. Patient was then transferred to recovery room in stable condition. The patent legal assistant SANTO Dexter was required due the complexity surgery and the need for a skilled surgical services tech. She assisted in positioning, draping, retraction, and closure of the wound.
[2019-05-14] MEDS ORDERED: ROPIVACAINE 0.2%-NS ON-Q PUMP 1,090 MG, EMPTY PAIN BALL 1 EACH MISCELLANE PRN (11:29)
[2019-05-14] MEDS: HYDROmorphone 0.5 MG/0.5 ML SYRINGE IVP PRN ×5 (11:34→20:59)
--- NOTE | 2019-05-14 11:55 | XR ---
EXAMINATION TYPE: XR knee limited LT DATE OF EXAM: 05/14/2019 CLINICAL HISTORY: Left knee pain and arthritis status post total knee replacement. TECHNIQUE: Portable AP and crosstable lateral views of the left knee are obtained immediately postop eratively. COMPARISON: None FINDINGS: Metallic hardware from total left knee arthroplasty is seen and appears satisfactory in al ignment and position. There is evidence of recent surgery with diffuse subcutaneous gas , vertical s kin georgette, and percutaneous suprapatellar surgical drain noted. Redemonstration of a similar appear ing peripherally sclerotic well-defined 2.5 cm lesion within the medial metaphysis of the proximal ti kala with a narrow zone of transition. This is favored to represent a bone infarct. IMPRESSION: METALLIC HARDWARE FROM TOTAL LEFT KNEE ARTHROPLASTY IS SATISFACTORY IN ALIGNMENT.
[2019-05-14] MEDS ORDERED: SODIUM CHLORIDE 0.9% 1,000 ML IV ONE (12:47)
[2019-05-14] MEDS: SODIUM CHLORIDE 0.9% 1,000 ML IV SCH (13:42)
[2019-05-14] MEDS: ASPIRIN 325 MG TAB PO SCH (20:18)
[2019-05-14] MEDS ORDERED: NON FORMULARY DRUG (Certolizumab Pegol [Cimzia] 400 MG) SQ SCH (20:30)
[2019-05-14] MEDS: GABAPENTIN 300 MG CAP PO SCH (21:00)
[2019-05-14] MEDS ORDERED: LISINOPRIL 20 MG TAB PO SCH (21:00)
[2019-05-14] MEDS ORDERED: rOPINIRole HCL 4 MG TABLET PO SCH (21:00)
[2019-05-14] MEDS: BACLOFEN 10 MG TAB PO SCH (21:00)
[2019-05-14] MEDS ORDERED: ATORVASTATIN 40 MG TAB PO SCH (21:00)
[2019-05-14] MEDS ORDERED: SENNOSIDES-DOCUSATE SODIUM 1 EACH TAB PO SCH (21:00)
[2019-05-14] MEDS: DOXAZOSIN 4 MG TAB PO SCH (21:21)
[2019-05-14] MEDS: CARVEDILOL 3.125 MG TAB PO SCH (21:22)
[2019-05-14] MEDS: HYDROcodone/APAP 10-325MG 1 EACH TAB PO PRN (21:22)
[2019-05-14] MEDS ORDERED: clonazePAM 1 MG TAB PO PRN (22:00)
[2019-05-15] MEDS: SODIUM CHLORIDE 0.9% 1,000 ML IV SCH (00:32)
[2019-05-15] MEDS: HYDROmorphone 0.5 MG/0.5 ML SYRINGE IVP PRN ×3 (02:12→05:45)
[2019-05-15] MEDS: HYDROcodone/APAP 10-325MG 1 EACH TAB PO PRN (05:45)
[2019-05-15] MEDS: LACTATED RINGERS 1,000 ML IV SCH (06:11)
--- NOTE | 2019-05-15 07:54 | P.CONS ---
History of Present Illness - Reason for Consult Consult date: 05/15/19 - Chief Complaint Knee pain. - History of Present Illness This is a history and physical/consultation note on a 68-year-old white male with known history of hypertension and history of electrocution injury remotely. The patient has been struggling with rheumatoid arthritis and significant joint aches. Evaluation by orthopedic surgery has been done and he is now postop day #1 for knee repair. Minimal pain is noted. No significant nausea, vomiting or diarrhea is stated. Review of Systems Constitutional: Denies chills, Denies fever Eyes: denies blurred vision, denies pain Ears, nose, mouth and throat: Denies headache, Denies sore throat Cardiovascular: Denies chest pain, Denies shortness of breath Respiratory: Denies cough Gastrointestinal: Denies abdominal pain, Denies diarrhea, Denies nausea, Denies vomiting Musculoskeletal: Reports as per HPI Musculoskeletal: left: knee pain Integumentary: Denies pruritus, Denies rash Neurological: Denies numbness, Denies weakness Psychiatric: Denies anxiety, Denies depression Past Medical History Past Medical History: Hyperlipidemia, Hypertension, Neurologic Disorder, Rheumatoid Arthritis (RA), Skin Disorder, Sleep Apnea/CPAP/BIPAP Additional Past Medical History / Comment(s): Ulcerative Colitis, Kidney Stones. Nerve damage from electrocution 2007 resulting in tremors, Back Pain with Implanted Pain Stimulator in lower left back, Pain Pump. Uses CPAP. Skin thin, bruises easily. History of Any Multi-Drug Resistant Organisms: None Reported Past Surgical History: Hernia Repair Additional Past Surgical History / Comment(s): Implanted Pain Stimulator. Pain Pump. Nasal surg. STEROID INJECTION KNEES. COLONOSCOPY Past Anesthesia/Blood Transfusion Reactions: No Reported Reaction Past Psychological History: No Psychological Hx Reported Smoking Status: Former smoker Past Alcohol Use History: Daily Additional Past Alcohol Use History / Comment(s): Couple cigars daily; smoked cigarettes, approx <1 ppd from age 20 to age 40. 1 glass of wine daily Past Drug Use History: Marijuana Additional Drug Use History / Comment(s): Medical Marijuana card- occ use. - Past Family History Mother Family Medical History: No Reported History Additional Family Medical History / Comment(s): of alcoholism Father Family Medical History: CVA/TIA, Myocardial Infarction ([place]) Medications and Allergies Home Medications Medication Instructions Recorded Confirmed Type RX: Allopurinol [Zyloprim] 300 mg PO DAILY 10/14/15 05/14/19 History RX: Doxazosin Mesylate [Cardura] 4 mg PO BID 10/14/15 05/14/19 History RX: Ferrous Sulfate [Iron (65 MG 325 mg PO DAILY 10/14/15 05/14/19 History Elemental)] RX: Folic Acid 1 mg PO DAILY 10/14/15 05/14/19 History RX: Methotrexate Sodium 20 mg PO MO 10/14/15 05/14/19 History [Methotrexate] RX: Ramipril 10 mg PO HS 10/14/15 05/14/19 History RX: Simvastatin [Zocor] 80 mg PO HS 10/14/15 05/14/19 History RX: azaTHIOprine [Imuran] 50 mg PO DAILY 10/14/15 05/14/19 History RX: rOPINIRole HCL [Requip] 4 mg PO HS 10/14/15 05/14/19 History Calcium 1000mg 1,000 - 1,200 mg PO DAILY 12/05/18 05/14/19 History RX: Baclofen [Lioresal] 20 mg PO TID 12/05/18 05/14/19 History RX: Gabapentin [Neurontin] 300 mg PO TID 12/05/18 05/14/19 History RX: HYDROcodone/APAP 10-325MG 1 tab PO TID PRN #9 tab 12/12/18 05/14/19 Rx [[place] 10-325] RX: clonazePAM [KlonoPIN] 4 mg PO TID #18 tablet 12/12/18 05/14/19 Rx Certolizumab Pegol [Cimzia] 400 mg SQ Q30D 05/07/19 05/14/19 History Ms Contin Pain Pump 1 applic IT CONTINUOUS 05/07/19 05/14/19 History Carvedilol [Coreg] 3.125 mg PO BID 05/13/19 05/14/19 History Allergies Allergy/AdvReac Type Severity Reaction Status Date / Time No Known Allergies Allergy Verified 05/14/19 08:36 Physical Exam Vitals: Vital Signs Temp Pulse Pulse Pulse Resp BP BP 05/15/19 02:00 98.4 F 74 16 92/49 05/14/19 19:55 98.1 F 64 18 105/66 05/14/19 13:56 59 L 18 05/14/19 13:45 40 L 108/62 05/14/19 13:30 56 L 96/51 05/14/19 13:15 56 L 117/74 05/14/19 13:00 97.7 F 44 L 12 118/74 05/14/19 12:30 59 L 18 107/62 05/14/19 12:15 51 L 15 109/63 05/14/19 12:00 48 L 16 121/80 05/14/19 11:50 51 L 16 136/66 05/14/19 11:35 62 18 136/79 05/14/19 11:20 97 F L 61 61 H 136/79 05/14/19 08:34 97.4 F L 54 L 16 128/68 Pulse Ox 05/15/19 02:00 95 05/14/19 19:55 97 05/14/19 13:56 05/14/19 13:45 05/14/19 13:30 05/14/19 13:15 05/14/19 13:00 93 L 05/14/19 12:30 96 05/14/19 12:15 99 05/14/19 12:00 99 05/14/19 11:50 100 05/14/19 11:35 99 05/14/19 11:20 100 05/14/19 08:34 93 L Intake and Output 05/14/19 05/15/19 05/15/19 22:59 06:59 14:59 Intake Total 245 Balance 245 Intake: Intake, IV Titration 245 Amount Sodium Chloride 0.9% 1, 245 000 ml @ 70 mls/hr IV . [id number] COUNT INCLUDES THE [facility] Rx#:[id number] Other: Voiding Method Urinal # Voids 1 1 - Constitutional General appearance: no acute distress - EENT Eyes: EOMI - Neck Neck: no lymphadenopathy - Respiratory Respiratory: bilateral: CTA - Cardiovascular Rhythm: regular Heart sounds: normal: S1, S2 Abnormal Heart Sounds: no S3 Gallop - Gastrointestinal General gastrointestinal: soft, no tenderness - Neurologic Neurologic: CNII-XII intact Assessment and Plan (1) BPH (benign prostatic hyperplasia) Current Visit: No Status: Acute Code(s): N40.0 - BENIGN PROSTATIC HYPERPLASIA WITHOUT LOWER URINRY TRACT SYMP SNOMED Code(s): 869826261 (2) Cervical radiculopathy Current Visit: No Status: Acute Code(s): M54.12 - RADICULOPATHY, CERVICAL REGION SNOMED Code(s): 52139215 (3) Degenerative disc disease, cervical Current Visit: No Status: Acute Code(s): M50.30 - OTHER CERVICAL DISC DEGENERATION, UNSP CERVICAL REGION SNOMED Code(s): 50423014 Plan: Status post left knee arthroplasty. The patient seems medically stable today. Continue pain control. Reconcile medications. Anticipate discharge in next 24-48 hours. See orders otherwise.
[2019-05-15 08:17] LABS: Anisocytosis Slight; Basophils % (A) 1 %; Eosinophils # (A) 0.1 k/uL (0-0.7); Eosinophils % (A) 2 %; HCT 30.1 % (39.0-53.0); HGB 10.2 gm/dL (13.0-17.5); Lymphocytes # (A) 0.9 k/uL (1.0-4.8); Lymphocytes % (A) 15 %; MCH 33.8 pg (25.0-35.0); MCHC 33.9 g/dL (31.0-37.0); MCV 99.8 fL (80.0-100.0); Macrocytosis Slight; Monocytes # (A) 0.3 k/uL (0-1.0); Monocytes % (A) 5 %; Neutrophils # (A) 4.7 k/uL (1.3-7.7); Neutrophils % (A) 76 %; Platelet Count 178 k/uL (150-450); RBC 3.02 m/uL (4.30-5.90); RDW 17.7 % (11.5-15.5); WBC 6.2 k/uL (3.8-10.6)
--- NOTE | 2019-05-15 08:24 | P.PN ---
Progress Note - Text Progress Note Date: 05/15/19 Patient without complaints. Pain controlled. Denies leg weakness. VSS Catheter site clean and dry A/P POD#1 s/p Left TKA with adductor catheter - doing well
--- NOTE | 2019-05-15 08:34 | P.DS ---
Providers Expected date of discharge: 05/15/19 Attending physician: Shen Del Rosario Consults: 05/14/19 08:52 Consult Physician Routine Consulting Provider: Lorenzo Thomas Consult Reason/Comments: medical management Do you want consulting provider notified?: Yes Primary care physician: Lorenzo Thomas - Discharge Diagnosis(es) (1) Osteoarthritis of left knee Current Visit: Yes Status: Acute (2) Status post total left knee replacement Current Visit: Yes Status: Acute Hospital Course: This is a 68-year-old male with known history of degenerative arthritis of the left knee. The patient presents for evaluation. After discussion and consideration patient elects to proceed with total knee arthroplasty. The patient is seen preoperatively by Dr. Del Rosario and medically cleared for surgery by their primary care physician. Patient is admitted to [facility] on 05/14/2019 for total knee arthroplasty. The procedures performed without complication or sequelae. The patient is doing well postoperatively. Labs and vital signs are stable on day of discharge. On day of discharge patient's knee incision is healing well. There is minimal erythema. There is no drainage noted at this time. There is minimal soft tissue swelling to the knee. Patient has full foot and ankle motion without difficulty or pain. Calf is soft and nontender to palpation. Neurovascular status to the left lower extremity is intact. Patient is discharged home in go od condition. Opioid start talking form is reviewed and signed at patient bedside. Please see med rec for accurate list of home medications. Plan - Discharge Summary Discharge Rx Participant: No New Discharge Prescriptions: New Aspirin 325 mg PO BID #60 tab HYDROcodone/APAP 5-325MG [[place] 5-325] 1 - 2 tab PO Q6HR PRN #56 tab PRN Reason: Pain Sennosides [Senokot] 1 tab PO BID #60 tablet No Action rOPINIRole HCL [Requip] 4 mg PO HS Simvastatin [Zocor] 80 mg PO HS Ramipril 10 mg PO HS Methotrexate Sodium [Methotrexate] 20 mg PO MO Ferrous Sulfate [Iron (65 MG Elemental)] 325 mg PO DAILY azaTHIOprine [Imuran] 50 mg PO DAILY Folic Acid 1 mg PO DAILY Allopurinol [Zyloprim] 300 mg PO DAILY Doxazosin Mesylate [Cardura] 4 mg PO BID Calcium 1000mg 1,000 - 1,200 mg PO DAILY Baclofen [Lioresal] 20 mg PO TID Gabapentin [Neurontin] 300 mg PO TID clonazePAM [KlonoPIN] 4 mg PO TID #18 tablet HYDROcodone/APAP 10-325MG [[place] 10-325] 1 tab PO TID PRN #9 tab PRN Reason: Pain Ms Contin Pain Pump 1 applic IT CONTINUOUS Certolizumab Pegol [Cimzia] 400 mg SQ Q30D Carvedilol [Coreg] 3.125 mg PO BID Discharge Medication List Allopurinol [Zyloprim] 300 mg PO DAILY 10/14/15 [History] Doxazosin Mesylate [Cardura] 4 mg PO BID 10/14/15 [History] Ferrous Sulfate [Iron (65 MG Elemental)] 325 mg PO DAILY 10/14/15 [History] Folic Acid 1 mg PO DAILY 10/14/15 [History] Methotrexate Sodium [Methotrexate] 20 mg PO MO 10/14/15 [History] Ramipril 10 mg PO HS 10/14/15 [History] Simvastatin [Zocor] 80 mg PO HS 10/14/15 [History] azaTHIOprine [Imuran] 50 mg PO DAILY 10/14/15 [History] rOPINIRole HCL [Requip] 4 mg PO HS 10/14/15 [History] Baclofen [Lioresal] 20 mg PO TID 12/05/18 [History] Calcium 1000mg 1,000 - 1,200 mg PO DAILY 12/05/18 [History] Gabapentin [Neurontin] 300 mg PO TID 12/05/18 [History] HYDROcodone/APAP 10-325MG [[place] 10-325] 1 tab PO TID PRN #9 tab 12/12/18 [Rx] clonazePAM [KlonoPIN] 4 mg PO TID #18 tablet 12/12/18 [Rx] Certolizumab Pegol [Cimzia] 400 mg SQ Q30D 05/07/19 [History] Ms Contin Pain Pump 1 applic IT CONTINUOUS 05/07/19 [History] Carvedilol [Coreg] 3.125 mg PO BID 05/13/19 [History] Aspirin 325 mg PO BID #60 tab 05/15/19 [Rx] HYDROcodone/APAP 5-325MG [[place] 5-325] 1 - 2 tab PO Q6HR PRN #56 tab 05/15/19 [Rx] Sennosides [Senokot] 1 tab PO BID #60 tablet 05/15/19 [Rx] Follow up Appointment(s)/Referral(s): Shen Del Rosario DO [Doctor of Osteopathic Medicine] - 2 Weeks Ambulatory/Diagnostic Orders: Continuous Passive Motion (CPM) Machine [DME.AMB1] Time Frame: 3 Weeks, Location: None Selected Activity/Diet/Wound Care/Special Instructions: Weightbearing as tolerated with a walker. CPM 5-6h daily. Leave dressing intact. May be removed by home care nurse or by patient in 10 days. May shower with dressing on. Recommend use of compression stockings daily for at least 2 weeks during the day to help prevent swelling and blood clots. May remove at night before sleeping. Please follow up with [facility] and call with any questions or concerns, . Discharge Disposition: HOME WITH HOME HEALTH SERVICES
[2019-05-15] MEDS ORDERED: CALCIUM CARBONATE 500 MG CHEWABLE PO SCH (09:00)
[2019-05-15] MEDS ORDERED: FERROUS SULFATE 325 MG TAB PO SCH (09:00)
[2019-05-15] MEDS ORDERED: FOLIC ACID 1 MG TAB PO SCH (09:00)
[2019-05-15] MEDS ORDERED: MELOXICAM 7.5 MG TAB PO SCH (09:00)
[2019-05-15] MEDS ORDERED: ALLOPURINOL 300 MG TAB PO SCH (09:00)
[2019-05-15] MEDS ORDERED: azaTHIOprine 50 MG TAB PO SCH (09:00)
[2019-05-15 10:12] VITALS: BP 93/54; PULSE 67; RESP 14; TEMP 98.2
[2019-05-15] MEDS: DOXAZOSIN 4 MG TAB PO SCH (10:18)
[2019-05-15] MEDS: GABAPENTIN 300 MG CAP PO SCH (10:19)
[2019-05-15] MEDS: CARVEDILOL 3.125 MG TAB PO SCH (10:20)
[2019-05-15] MEDS: BACLOFEN 10 MG TAB PO SCH (10:20)
[2019-05-15] MEDS: ASPIRIN 325 MG TAB PO SCH (10:21)
[2019-05-20] MEDS ORDERED: METHOTREXATE SODIUM 2.5 MG TAB PO SCH (09:00)
== END 2019-05-15 13:22 | disposition home health service (06) ==
LOC: OR 07:48 → 4SSUR 11:15 → OR 05-15 13:22
PROVIDERS: ATTEND Orthopaedic Surgery
DX: M17.12 Unilateral primary osteoarthritis, left knee (principal); S72.435D Nondisplaced fracture of medial condyle of left femur, subsequent encounter for closed fracture with routine healing; M25.762 Osteophyte, left knee; G40.909 Epilepsy, unspecified, not intractable, without status epilepticus; I10 Essential (primary) hypertension; E78.5 Hyperlipidemia, unspecified; E78.00 Pure hypercholesterolemia, unspecified; R26.9 Unspecified abnormalities of gait and mobility; K51.90 Ulcerative colitis, unspecified, without complications; M06.9 Rheumatoid arthritis, unspecified; M54.5 Low back pain; M54.12 Radiculopathy, cervical region; Z96.89 Presence of other specified functional implants; Z87.891 Personal history of nicotine dependence; Z79.891 Long term (current) use of opiate analgesic; Z79.899 Other long term (current) drug therapy
CPT/HCPCS: 27447; 97161; 64448; 76942; 86900; 86901; 85025; 86850; 88300; 73560; C1713; C1776; J7500; J2250; J0171; J1100; J0690 ×3; J2405; J1885; J2795 ×2; J0735; J1170 ×2

== ENCOUNTER → 2019-05-21 | Outpatient (CLI) | payer MEDICARE ==
--- NOTE | 2019-05-21 16:40 | US ---
EXAMINATION TYPE: US venous doppler duplex LE LT DATE OF EXAM: 05/21/2019 4:12 PM COMPARISON: NONE CLINICAL HISTORY: R22.42 L swelling. Swelling left leg post left knee replacement 1 week ago. SIDE PERFORMED: Left TECHNIQUE: The lower extremity deep venous system is examined utilizing real time linear array sonog [place] with graded compression, doppler sonography and color-flow sonography. VESSELS IMAGED: Common Femoral Vein Deep Femoral Vein Greater Saphenous Vein * Femoral Vein Popliteal Vein Small Saphenous Vein * Proximal Calf Veins (* superficial vessels) Left Leg: Negative for DVT. Edema channels are noted at left ankle. IMPRESSION: No evidence for DVT at this time.
== END | disposition home or self-care (01) ==
LOC: RADUSWWP 15:30
PROVIDERS: ATTEND Family Medicine
DX: R22.42 Localized swelling, mass and lump, left lower limb (principal)

== ENCOUNTER 2019-12-05 16:27 | Inpatient (IN) | payer MEDICARE ==
[2019-12-05] MEDS ORDERED: NALOXONE 0.4 MG/ML 10 ML VIAL IVP STA (17:26)
[2019-12-05] MEDS ORDERED: SODIUM CHLORIDE 0.9% 500 ML 500 ML IV ONE (17:36)
[2019-12-05 18:22] LABS: Basophils % (A) 0 %; Eosinophils # (A) 0.2 k/uL (0-0.7); Eosinophils % (A) 3 %; HCT 43.5 % (39.0-53.0); HGB 14.1 gm/dL (13.0-17.5); Lymphocytes # (A) 0.9 k/uL (1.0-4.8); Lymphocytes % (A) 9 %; MCH 32.4 pg (25.0-35.0); MCHC 32.5 g/dL (31.0-37.0); MCV 99.9 fL (80.0-100.0); Macrocytosis Slight; Mean Platelet Volume 8.7; Monocytes # (A) 0.5 k/uL (0-1.0); Monocytes % (A) 5 %; Neutrophils # (A) 7.6 k/uL (1.3-7.7); Neutrophils % (A) 82 %; Platelet Count 165 k/uL (150-450); RBC 4.35 m/uL (4.30-5.90); RDW 15.9 % (11.5-15.5); WBC 9.2 k/uL (3.8-10.6)
[2019-12-05 18:30] LABS: Glucose,Whole Blood 132 mg/dL (75-99)
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
--- NOTE | 2019-12-05 19:05 | CT ---
EXAMINATION TYPE: CT brain wo con DATE OF EXAM: 12/05/2019 COMPARISON: 12/05/2018 INDICATION: Patient appears confused and fatigued DLP: 1276.4 mGycm, Automated exposure control for dose reduction was used. CONTRAST: None CT of the brain is performed utilizing 3 mm thick sections through the posterior fossa and 3 mm thick sections through the remaining calvarium. Study is performed within 24 hours of arrival to the hosp ital. No abnormal hyperdensity is present to suggest an acute intracranial hemorrhage. No mass lesion is evident. 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 No acute infarcts are evident. Ventricles and sulci are prominent for the patient age. Paranasal sinuses and mastoid air cells within the [id number] are clear. IMPRESSIONS: 1. Atrophy. 2. No acute intracranial process
[2019-12-05 19:40] LABS: ALT 24 U/L (4-49); AST 84 U/L (17-59); Acetaminophen <10.0 ug/mL; African American GFR (CKD) 22 (>60 ml/min/1.73 sqM); Albumin 3.8 g/dL (3.5-5.0); Alkaline Phosphatase 51 U/L (38-126); Anion Gap 7 mmol/L; Blood Urea Nitrogen 33 mg/dL (9-20); Calcium 8.3 mg/dL (8.4-10.2); Carbon Dioxide 26 mmol/L (22-30); Chloride 103 mmol/L (98-107); Glucose 111 mg/dL (74-99); Non-African American GFR(CKD) 19 (>60 ml/min/1.73 sqM); Potassium 4.9 mmol/L (3.5-5.1); Salicylate <1.0 mg/dL; Sodium 136 mmol/L (137-145); Total Bilirubin 0.6 mg/dL (0.2-1.3); Total Protein 6.4 g/dL (6.3-8.2)
[2019-12-05 20:08] LABS: Creatine Kinase 5006 U/L (55-170)
[2019-12-05] MEDS ORDERED: SODIUM CHLORIDE 0.9% 2,000 ML IV ONE (20:24)
[2019-12-05] MEDS ORDERED: NALOXONE 0.4 MG/ML 1 ML VIAL IV PRN (20:58)
[2019-12-05] MEDS: SODIUM CHLORIDE 0.9% 1,000 ML IV SCH (23:01)
[2019-12-05 23:13] LABS: Appearance,Urine Cloudy (Clear); Bacteria,Urine Rare /hpf; Bilirubin,Urine Negative (Negative); Blood,Urine Large (Negative); Color,Urine Yellow; Glucose,Urine (UA) Negative (Negative); Hyaline Casts,Urine 95 /lpf (0-2); Ketones,Urine Negative (Negative); Leukocyte Esterase,Urine Negative (Negative); Mucus,Urine Many /hpf; Nitrite,Urine Negative (Negative); Protein,Urine 1+ (Negative); RBC,Urine 5 /hpf (0-5); Squamous Epithelial Cell,Urine 2 /hpf (0-4); Urobilinogen,Urine <2.0 mg/dL (<2.0); WBC,Urine 24 /hpf (0-5)
[2019-12-05 23:15] LABS: Amphetamine Screen,Urine Not Detected (NotDetected); Benzodiazepines Screen,Urine Detected (NotDetected); Cocaine Screen,Urine Not Detected (NotDetected); Methadone Screen, Urine Not Detected (NotDetected); Opiate Screen,Urine Detected (NotDetected); Phencyclidine Screen,Urine Not Detected (NotDetected); Tricyclic Antidepressant,Urine Not Detected (NotDetected); Urn Cannabinoid Scrn Not Detected (NotDetected)
[2019-12-05 23:16] LABS: Barbiturate Screen,Urine Not Detected (NotDetected); Oxycodone Screen, Urine Not Detected (NotDetected)
[2019-12-06] MEDS: NON FORMULARY DRUG (Morphine Pain Pump 1 DOSE) MISCELLANE SCH ×2 (02:28→21:05)
[2019-12-06] MEDS: SODIUM CHLORIDE 0.9% 1,000 ML IV SCH ×3 (03:45→21:04)
[2019-12-06 06:25] LABS: Basophils % (A) 1 %; Eosinophils # (A) 0.2 k/uL (0-0.7); Eosinophils % (A) 3 %; HCT 40.7 % (39.0-53.0); HGB 13.2 gm/dL (13.0-17.5); Lymphocytes # (A) 0.9 k/uL (1.0-4.8); Lymphocytes % (A) 12 %; MCH 32.5 pg (25.0-35.0); MCHC 32.4 g/dL (31.0-37.0); MCV 100.5 fL (80.0-100.0); Macrocytosis Slight; Mean Platelet Volume 8.2; Monocytes # (A) 0.5 k/uL (0-1.0); Monocytes % (A) 7 %; Neutrophils # (A) 5.4 k/uL (1.3-7.7); Neutrophils % (A) 76 %; Platelet Count 161 k/uL (150-450); RBC 4.05 m/uL (4.30-5.90); RDW 15.8 % (11.5-15.5); WBC 7.1 k/uL (3.8-10.6)
[2019-12-06 06:34] LABS: Calcium 8.4 mg/dL (8.4-10.2); Potassium 4.6 mmol/L (3.5-5.1)
[2019-12-06] MEDS: CARVEDILOL 3.125 MG TAB PO SCH ×2 (07:52→21:03)
[2019-12-06] MEDS: DOXAZOSIN 4 MG TAB PO SCH ×2 (07:52→21:03)
[2019-12-06] MEDS: ALLOPURINOL 300 MG TAB PO SCH (07:52)
[2019-12-06] MEDS: FOLIC ACID 1 MG TAB PO SCH (07:53)
[2019-12-06] MEDS: azaTHIOprine 50 MG TAB PO SCH (07:53)
[2019-12-06] MEDS: rOPINIRole HCL 4 MG TABLET PO SCH (07:53)
[2019-12-06] MEDS: CALCIUM CARBONATE 500 MG CHEWABLE PO SCH (07:54)
[2019-12-06] MEDS: ATORVASTATIN 40 MG TAB PO SCH (07:54)
[2019-12-06] MEDS: FERROUS SULFATE 325 MG TAB PO SCH (07:54)
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
[2019-12-07 06:53] LABS: ALT 46 U/L (4-49); African American GFR (CKD) >90 (>60 ml/min/1.73 sqM); Albumin 3.4 g/dL (3.5-5.0); Non-African American GFR(CKD) >90 (>60 ml/min/1.73 sqM); Potassium 4.4 mmol/L (3.5-5.1); Sodium 134 mmol/L (137-145); Total Bilirubin 0.9 mg/dL (0.2-1.3); Total Protein 6.1 g/dL (6.3-8.2)
[2019-12-07 07:20] LABS: AST 141 U/L (17-59); Alkaline Phosphatase 52 U/L (38-126); Anion Gap 4 mmol/L; Blood Urea Nitrogen 14 mg/dL (9-20); Calcium 8.5 mg/dL (8.4-10.2); Carbon Dioxide 31 mmol/L (22-30); Chloride 99 mmol/L (98-107); Glucose 99 mg/dL (74-99)
[2019-12-07 07:50] LABS: Creatine Kinase 4044 U/L (55-170)
[2019-12-07] MEDS: azaTHIOprine 50 MG TAB PO SCH (08:39)
[2019-12-07] MEDS: FOLIC ACID 1 MG TAB PO SCH (08:39)
[2019-12-07] MEDS: CALCIUM CARBONATE 500 MG CHEWABLE PO SCH (08:39)
[2019-12-07] MEDS: FERROUS SULFATE 325 MG TAB PO SCH (08:39)
[2019-12-07] MEDS: ATORVASTATIN 40 MG TAB PO SCH (08:39)
[2019-12-07] MEDS: ALLOPURINOL 300 MG TAB PO SCH (08:39)
[2019-12-07] MEDS: CARVEDILOL 3.125 MG TAB PO SCH (08:39)
[2019-12-07] MEDS: DOXAZOSIN 4 MG TAB PO SCH (08:40)
[2019-12-07] MEDS: rOPINIRole HCL 4 MG TABLET PO SCH (08:40)
[2019-12-07 12:32] VITALS: BP 119/71; PULSE 88; RESP 17; TEMP 99.5
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
--- NOTE | 2019-12-10 09:52 | CDI ---
Documentation Clarification Form Date: 12/10/19 From: Isa Chen Phone: If you have a question about this query, please contact Laurel Lazaro, Animal Husbandry Professor at [phone] between 8am and 5pm. Admit Date: 12/05/19 Discharge Date:12/07/19 Patient Name: Pal Rose Visit Number: [id number] ATTENTION: The Clinical Documentation Specialists (CDI) and [facility] Coding Staff appreciate your assistance in clarifying documentation. Please respond to the clarification below the line at the bottom and electronically sign. The CDI & [facility] Coding staff will review the response and follow-up if needed. Please note: Queries are made part of the Legal Health Record. If you have any questions, please contact the author of this message via ITS. Dear Dr. Thomas Altered Mental Status was documented in the ED note, H&P and discharge summary. Acute encephalopathy is documented in the admit order. History/Risk Factors: Chronic back pain, pain pump, morphine overdose, rhabdomyolysis Clinical Indicators: confused Labs: Sodium 136, CK 5006, Creatinine 3.21 CT: Brain: 1. Atrophy. 2. No acute intracranial process Treatment: IV Narcan 2 mg, 2 L NS fluid bolus In your professional opinion, please clarify the etiology of the Altered Mental Status, if known. Delirium (specify cause): _caused by excessive opiates Dementia (if know, specify Type and if with/without Behavioral Disturbance) Encephalopathy (specify Type and Underlying Medical Illness) Other condition (please specify) Unable to determine MTDD
--- NOTE | 2019-12-10 10:24 | CDI ---
Documentation Clarification Form Date: 12/10/19 From: Isa Chen Phone: If you have a question about this query, please contact Laurel Lazaro, Chipper Machine Operator at [phone] between 8am and 5pm. Admit Date: 12/05/19 Discharge Date:12/07/19 Patient Name: Pal Rose Visit Number: [id number] ATTENTION: The Clinical Documentation Specialists (CDI) and [facility] Coding Staff appreciate your assistance in clarifying documentation. Please respond to the clarification below the line at the bottom and electronically sign. The CDI & [facility] Coding staff will review the response and follow-up if needed. Please note: Queries are made part of the Legal Health Record. If you have any questions, please contact the author of this message via ITS. Dear Dr. Thomas Acute Kidney Injury is documented in the ED note, H&P and discharge summary History Risk factors/Other underlying illness: Hypertension, rhabdomyolysis Clinical Indicators: Elevated creatinine, urine casts Labs: Patient presents with a BUN/CR and GFR of: 33/2./ Patients baseline BUN/CR and GFR: 14/0.69/>90 Urinalysis: Casts 95, protein 1+, Large blood, WBC 24 Treatment: 2 L NS bolus, then at 75 mls/hr In your professional opinion, can you please clarify if the condition can be further specified? Acute Renal Failure with Acute Tubular Necrosis-this is the correct diagnosis at this time Acute Renal Failure with Renal Cortical Necrosis Acute Renal Failure with other specified pathological cause, please specify Acute Renal Failure with other cause, please specify Unable to determine Other, please specify MTDD
== END 2019-12-07 14:31 | disposition home or self-care (01) | DRG 917 ==
LOC: EC 16:27 → 5NMEDONC 21:00
PROVIDERS: ADMIT Family Medicine; ATTEND Family Medicine
DX: T40.2X1A Poisoning by other opioids, accidental (unintentional), initial encounter (principal); N17.0 Acute kidney failure with tubular necrosis; K51.90 Ulcerative colitis, unspecified, without complications; M62.82 Rhabdomyolysis; E78.5 Hyperlipidemia, unspecified; G89.29 Other chronic pain; R41.0 Disorientation, unspecified; I10 Essential (primary) hypertension; M06.9 Rheumatoid arthritis, unspecified; N40.0 Benign prostatic hyperplasia without lower urinary tract symptoms; G47.30 Sleep apnea, unspecified; M54.9 Dorsalgia, unspecified; G25.2 Other specified forms of tremor; Z79.899 Other long term (current) drug therapy; Z87.891 Personal history of nicotine dependence; Z87.442 Personal history of urinary calculi; Z82.49 Family history of ischemic heart disease and other diseases of the circulatory system; Z81.1 Family history of alcohol abuse and dependence; Z82.3 Family history of stroke
CPT/HCPCS: 36415; 70450; 80048; 80053; 80306; 80329; 81001; 82140; 82550; 83520; 85025; 87086; 93005; 96361; 96374; 99285

== ENCOUNTER → 2019-12-10 | Outpatient (CLI) | payer MEDICARE ==
--- NOTE | 2019-12-10 11:52 | XR ---
EXAMINATION TYPE: XR finger LT DATE OF EXAM: 12/10/2019 COMPARISON: None HISTORY: Pain fifth digit TECHNIQUE: 3 views left fifth digit FINDINGS: There is loss of joint space of the proximal distal interphalangeal joint spaces. Some prom inence of soft tissues over the distal interphalangeal joint space present. No acute fractures are ev ident. IMPRESSION: 1. No acute osseous abnormality. No acute degenerative joint changes especially of the distal interp halangeal joint space
--- NOTE | 2019-12-10 11:53 | XR ---
EXAMINATION TYPE: XR hand complete LT DATE OF EXAM: 12/10/2019 COMPARISON: None HISTORY: Pain TECHNIQUE: Three-view left hand FINDINGS: No acute fractures or dislocations are evident. Some mild soft tissue prominence over the j oint space fifth digit may be present. There is loss of the distal interphalangeal joint spaces and s lightly more moderate joint space loss within the proximal interphalangeal joint spaces. IMPRESSION: 1. Degenerative joint changes. 2. Mild soft tissue prominence over the fifth digit joint spaces.
== END | disposition home or self-care (01) ==
LOC: RADXRMAIN 11:24
PROVIDERS: ATTEND Family Medicine
DX: M79.645 Pain in left finger(s) (principal); M19.042 Primary osteoarthritis, left hand

== ENCOUNTER → 2020-01-31 | Outpatient (CLI) | payer MEDICARE ==
--- NOTE | 2020-01-31 12:24 | CT ---
EXAMINATION TYPE: CT abdomen pelvis wo con DATE OF EXAM: 01/31/2020 COMPARISON: 12/05/2018 HISTORY: renal stones CT DLP: 988.3 mGycm Automated exposure control for dose reduction was used. TECHNIQUE: Helical acquisition of images was performed from the lung bases through the pelvis. FINDINGS: LUNG BASES: Bilateral subsegmental consolidation noted. No pleural effusion. Heart is enlarged. LIVER/GB: There is a 3.7 cm mass in the right lobe the liver which is increased in size from the prio r exam where it measured 2.7 cm. Appears to be a solid lesion. PANCREAS: No significant abnormality is seen. SPLEEN: No significant abnormality is seen. ADRENALS: No significant abnormality is seen. KIDNEYS: There is an exophytic mass extending off the lateral margin of the right kidney with periphe ral calcification. Measures 30 Hounsfield units and does not meet the criteria of a simple cyst. MRI recommended. Right kidney: There are 2 calcifications measuring 6 and 2 mm respectively. Left kidney: There are 5 calcifications the largest measuring 6 mm. No hydronephrosis bilaterally. ADENOPATHY: None visualized. OSSEOUS STRUCTURES: Multilevel degenerative disc disease with multiple compression fractures. There is progression at T11 which is now complete. Anterolisthesis of L4 on L5 noted there is multilevel fa cet arthropathy, canal stenosis and foraminal encroachment. BOWEL: No significant abnormality is seen. OTHER: Stimulator device is seen. There is bilateral inguinal hernias which appear to be fat-containi ng. Atherosclerotic change of the vasculature noted. No free fluid. There is a 1.4 cm intramuscular l ipoma posterior musculature of the hamstrings axial image 178. Additionally in the posterior gluteal musculature there is an area of low attenuation adjacent to the sacrum measuring 2.3 cm. IMPRESSION: 1. Multiple bilateral renal calculi with no evidence of hydronephrosis. 2. There is a solid-appearing lesion in the liver right lobe which is increased in size as measured a ramsey compared to the prior exam. Recommend MRI. 3. Again noted is a 3.8 cm mass involving the lateral margin of the right kidney with peripheral calc ification. Measures 40 Hounsfield units and does not meet the criteria of a simple cyst. This also co uld be evaluated with MRI. 4. Progression of compression fractures most noted at T11 which now appears complete. There does appe ar to be multilevel canal stenosis and foraminal encroachment. 5. Severe cardiomegaly. 6. Axial image 141 demonstrates an area of asymmetric low attenuation in the posterior right groove g luteal muscle adjacent to the sacrum. Correlate clinically for mass. Could be asymmetric fatty infilt ration of the muscle. Follow-up ultrasound could exclude either mass.
== END | disposition home or self-care (01) ==
LOC: RADCTMAIN 11:37
PROVIDERS: ATTEND Urology
DX: N20.0 Calculus of kidney (principal); N28.89 Other specified disorders of kidney and ureter
CPT/HCPCS: 74176

== ENCOUNTER 2020-02-12 09:48 | Day surgery (SDC) | payer MEDICARE ==
[2020-02-11 08:28] VITALS: BMI 32.9
[~2020-02-12 09:48] MED LIST changes: -ACETAMINOPHEN TAB 500 MG TAB PO ONE; -DEXAMETHASONE SOD PHOSPHATE 10 MG/ML 1 ML VIAL IV ONE; -GABAPENTIN 300 MG CAP PO ONE; +LACTATED RINGERS 1,000 ML IV SCH; -LIDOCAINE 1% 20 ML VIAL (10MG/ML) FOR IV START INTRADERMA PRN; -MELOXICAM 7.5 MG TAB PO ONE; -MIDAZOLAM 2 MG/2 ML VIAL IV PRN; -ONDANSETRON 4 MG/2 ML VIAL IVP ONE; -ROPIVACAINE 246.25 MG, EPINEPHrine 0.5 MG, KETOROLAC 30 MG, cloNIDine HCL/PF 80 MCG, WA... MISCELLANE ONE; -SCOPOLAMINE 1.5MG/72HR PATCH TRANSDERM ONE; -TRANEXAMIC ACID 1,000 MG in SODIUM CHLORIDE 0.9% 100 ML IVPB ONE; -ceFAZolin 3 GM in SODIUM CHLORIDE 0.9% 100 ML IVPB ONE
[2020-02-12 11:02] VITALS: RESP 16; TEMP 97.3
[2020-02-12] MEDS ORDERED: LIDOCAINE 1% INJ 10MG/ML (20 ML MDV) ONE (11:30)
[2020-02-12] MEDS ORDERED: PROPOFOL 10 MG/ML 20 ML VIAL IV ONE (11:30)
--- NOTE | 2020-02-12 11:50 | P.PCN ---
Date of Procedure: 02/12/20 Procedure(s) Performed: BRIEF HISTORY: Patient is a 69-year-old pleasant white male scheduled for an elective colonoscopy as a part of surveillance of long-standing history of ulcerative colitis diagnosed in 2007. He remains in clinical remission. Presently maintained on Cymzia every 4 weeks. PROCEDURE PERFORMED: Colonoscopy with multiple random biopsies. PREOPERATIVE DIAGNOSIS: Long-standing history of ulcerative colitis. IV sedation per Anesthesia. PROCEDURE: After informed consent was obtained, the patient, was brought into the endoscopy unit. IV sedation was administered by Anesthesia under continuous monitoring. Digital rectal examination was normal. Initially the Olympus CF-160 flexible video colonoscope was then inserted in the rectum, gradually advanced into the cecum without any difficulty. Careful examination was performed as the scope was gradually being withdrawn. Ileocecal valve and the appendiceal orifice were visualized and appeared normal. Prep was excellent. Mucosa of the cecum, ascending colon, transverse colon, descending colon, sigmoid colon, and rectum appeared normal. Retroflexion was performed in the rectum and no lesions were seen. Random biopsies were done from rectum to cecum at every 10 cm intervel The patient tolerated the procedure well. IMPRESSION: Normal-appearing colon from rectum to cecum with no evidence of active colitis or colorectal neoplasia. RECOMMENDATIONS: Findings of this examination were discussed with the patient as well as his family. He was advised to follow with the biopsy results. If the biopsy does not show any evidence of dysplasia, he can have a repeat colonoscopy in 2 years.
[2020-02-12 12:23] VITALS: BP 113/71; PULSE 56
== END 2020-02-12 13:13 | disposition home or self-care (01) ==
LOC: ORWHC2ENDO 09:48
PROVIDERS: ATTEND Internal Medicine Gastroenterology
DX: K52.9 Noninfective gastroenteritis and colitis, unspecified (principal); I10 Essential (primary) hypertension; I25.10 Atherosclerotic heart disease of native coronary artery without angina pectoris; E78.5 Hyperlipidemia, unspecified; G25.81 Restless legs syndrome; G62.9 Polyneuropathy, unspecified; Z79.891 Long term (current) use of opiate analgesic; Z79.899 Other long term (current) drug therapy
CPT/HCPCS: 88305; 45380; J2001; J2704

== ENCOUNTER → 2020-02-20 | Outpatient (CLI) | payer MEDICARE ==
[2020-02-20 09:02] LABS: African American GFR (CKD) >90 (>60 ml/min/1.73 sqM); Blood Urea Nitrogen 14 mg/dL (9-20); Non-African American GFR(CKD) >90 (>60 ml/min/1.73 sqM)
--- NOTE | 2020-02-20 09:47 | CT ---
EXAMINATION TYPE: CT abdomen pelvis w con DATE OF EXAM: 02/20/2020 COMPARISON: 01/31/2020 HISTORY: Hematuria CONTRAST: CT scan of the abdomen and pelvis is performed with Oral Contrast and with IV Contrast, patient injec alexandra with 100 mL of Isovue 300. FINDINGS: LUNG BASES-: No visible nodule. No infiltrate. LIVER/GB: No calcified gallstones. Hyperdense lesion noted adjacent to the gallbladder fossa measur es 3.7x 2.8 cm versus 3.8 cm previously. Lesions are nonspecific and may reflect hemangiomas. MRI is advised. Biliary tree is of normal caliber. PANCREAS: No inflammation. No distinct mass. SPLEEN: No splenic enlargement. No lesion seen. ADRENALS: No nodule. No thickening. KIDNEYS/BLADDER: Bilateral nephrolithiasis noted. Right lower pole calculus measures 9 mm as well as right upper pole calculus measures 9. On the left there is a 1 cm mid pole calculus and a 1.1 cm left lower pole calculus. No hydronephrosis. Exophytic lesion mid pole right kidney with peripheral calci fication is again noted and demonstrates a Hounsfield unit measurements of less than 20 compatible wi th cyst. BOWEL: Normal appendix. Normal bowel caliber. No inflammation. GENITAL ORGANS: Prostate gland enlargement noted. LYMPH NODES: No greater than 1cm abdominal or pelvic lymph nodes are appreciated. AORTA: No significant abnormality. OSSEOUS STRUCTURES: No significant abnormality is seen. OTHER: No significant additional abnormality is seen. IMPRESSION: 1. Hepatic lesions may reflect hepatic hemangiomas however lesions of other etiology not excluded. Co nsider MRI correlation. 2. Bosniak category 2 right renal lesion.
== END | disposition home or self-care (01) ==
LOC: RADCTMAIN 07:00
PROVIDERS: ATTEND Urology
DX: R31.9 Hematuria, unspecified (principal); R93.41 Abnormal radiologic findings on diagnostic imaging of renal pelvis, ureter, or bladder
CPT/HCPCS: 82565; 84520; 74177; 36415; Q9967

== ENCOUNTER → 2020-12-21 | Outpatient (CLI) | payer MEDICARE | END | disposition home or self-care (01) | LOC: LABWHC1 11:07 | PROVIDERS: ATTEND Psychiatry & Neurology Neurology | DX: Z01.812 Encounter for preprocedural laboratory examination (principal); Z20.822 Contact with and (suspected) exposure to COVID-19 | CPT/HCPCS: U0003; C9803; U0005 ==

== ENCOUNTER → 2021-01-27 | Outpatient (CLI) | payer MEDICARE ==
--- NOTE | 2021-01-27 16:48 | CT ---
EXAMINATION TYPE: CT thor lumbar spine wo con DATE OF EXAM: 01/27/2021 COMPARISON: CT lumbar spine 02/11/2019 HISTORY: Mid and low back pain. CT DLP: 1211.7 mGycm Automated exposure control for dose reduction was used. Contrast: None Technique: Axial images 5 mm thick sections. Reconstructed images in the sagittal plane. FINDINGS: There is a stable compression deformity at T11. No posterior wall displacement is evident. T11-12 dis c vacuum phenomenon is noted. There is a mild compression deformity of L4, likewise stable from comparison. No posterior wall displ acement is evident. There is a mild grade 1 spondylolisthesis of L4 anterior 5. Degenerative disc changes are within the thoracic and lumbar spine. The lumbar spine comparison appea rs stable over the interval. Vacuum phenomenon is present L4-5 and L5-S1. Facet degenerative changes noted L4-5. Milder facet degenerative changes within the L3-4 level. There is mild endplate spurring of T12 with mild anterior thecal sac flattening. No spinal canal sten osis is present. Progress stimulator leads are present within the mid thoracic region. IMPRESSION: 1. GRADE 1 ANTEROLISTHESIS OF L4 ON L5. 2. STABLE T11 AND L4 COMPRESSION DEFORMITIES WITHOUT RETROPULSION. 3. DEGENERATIVE DISC CHANGES WITHIN THE LUMBAR SPINE DISCUSSED ABOVE.
== END | disposition home or self-care (01) ==
LOC: RADCTMAIN 15:19
PROVIDERS: ATTEND Psychiatry & Neurology Neurology
DX: M43.16 Spondylolisthesis, lumbar region (principal); M47.816 Spondylosis without myelopathy or radiculopathy, lumbar region; M43.8X5 Other specified deforming dorsopathies, thoracolumbar region
CPT/HCPCS: 72128; 72131

== ENCOUNTER → 2021-02-24 | Outpatient (CLI) | payer MEDICARE ==
--- NOTE | 2021-02-24 19:19 | CONS ---
CONSULTATION DATE OF SERVICE: 02/24/2021 70-year-old gentleman has been [facility]uated [facility] for obstructive sleep apnea- hypopnea syndrome. HISTORY OF PRESENT ILLNESS/SLEEP WAKE EVALUATION: Patient has been diagnosed with obstructive sleep apnea in 2014. At that time, apnea- hypopnea index was 20.7. The patient was started on treatment with CPAP and he continued to use his CPAP equipment until now. Presently, his machine developed some problems especially that related to heated humidifier. SLEEP SCHEDULE: The patient usually sleep 8 hours per night. FALLING ASLEEP: No problems with falling asleep. DURING SLEEP: He usually sleeps in the back position. He sleeps through the night with the machine without snoring or awakenings from sleep. No history of hypnagogic hallucinations, sleep paralysis or cataplexy. DURING THE DAY/SLEEP WAKE EVALUATION: During the day, he does not take any naps. Presently [place] Sleepiness Scale slightly increased to 12. 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 PAST SURGICAL HISTORY: Naris stimulator insertion. MEDICATIONS: Allopurinol 300 mg once a day. Baclofen 20 mg 3 times a day, Cimzia 400 mg every 4 weeks, carvedilol 300/125 mg twice a day, doxazosin 4 mg twice a day, gabapentin 300 mg 3 times a day, Imuran 50 mg once a day, iron 65 mg once a day, methotrexate 2.5 mg 8 tablets a week, MS Contin 60 mg twice a day, [place] 10/325 mg as needed, ramipril 10 mg once a day. Simvastatin 80 mg once a day. SOCIAL HISTORY: Smoking cigars. Alcohol, 1 glass of wine once a day. FAMILY HISTORY: Stroke, heart problems by his father. REVIEW OF SYSTEMS: Episodes of pain. PHYSICAL EXAMINATION: GENERAL: gentleman without distress. BP 104/61, HR 52, RR 16, height 6 feet, 5 inches , weight 262, BMI 31.0, temperature 97.9. Oxygen saturation at room air 95%. Oropharynx: Low position of soft palate. Neck is 17 inches in circumference. NECK: Supple, no JVD. Thyroid is not palpable. LUNGS: Clear to percussion and to auscultation. Good air exchange. No wheezing or rhonchi. HEART: S1, S2 regular. No murmurs, gallops, or rubs. ABDOMEN: Soft and nontender. Bowel sounds are present. No organomegaly appreciated. EXTREMITIES: No clubbing or cyanosis. OLIVE GROWER: Movement disorder with occasional jerking movements. IMPRESSION: 1. Obstructive sleep apnea-hypopnea syndrome in moderate range. Apnea-hypopnea index 20.7 by results of sleep study in 2014. The patient continued to use his CPAP equipment every night. CPAP unit is old. Problem with heated humidifier. 2. Electrocution with secondary neuropathy and movement disorder. 3. History of ulcerative colitis. 4. Nephrolithiasis. 5. Hyperlipidemia. PLAN: 1. Prescription to replace CPAP unit. 2. Prescription for all necessary CPAP supplies. The patient wants to change his nasal mask to a full-face mask. 3. Sleep hygiene with regular time in bed for at least 7.5 to 8 hours. 4. No driving if feeling sleepiness. 5. Watching weight. 6. Follow-up visit in 30-90 days after the patient will receive new CPAP unit to evaluate clinical response on treatment, compliance with treatment and make any necessary adjustments related to mask fitting, pressure and humidification. Thank you very much for allowing me to participate in management of your patient. Sincerely, Haseeb Daniels MD, PhD, FAASM Diplomat of [place] [employer] [place] [employer] Activity Coordinator of [facility] [place] NIRANJAN / YAS: [phone] /
== END ==
LOC: SLEEP 16:22
PROVIDERS: ATTEND Internal Medicine
DX: Z53.9 Procedure and treatment not carried out, unspecified reason (principal)
CPT/HCPCS: 99211

== ENCOUNTER → 2021-05-07 | Outpatient (CLI) | payer MEDICARE ==
[2021-05-07 20:12] LABS: HCT 34.3 % (39.6-50.0); HGB 11.2 g/dL (13.0-17.0); MCHC 32.7 g/dL (32.0-37.0); MCV 107.2 fL (80.0-97.0); Mean Platelet Volume 11.3 fL (9.5-12.2); Platelet Count 156 X 10*3/uL (140-440); RDW 15.8 % (11.5-14.5); WBC 4.24 X 10*3/uL (4.50-10.00)
[2021-05-07 20:40] LABS: Basophils # (A) 0.03 X 10*3/uL (0.00-0.10); Basophils % (A) 0.7 %; Eosinophils # (A) 0.14 X 10*3/uL (0.04-0.35); Eosinophils % (A) 3.3 %; Lymphocytes # (A) 1.07 X 10*3/uL (0.90-5.00); Lymphocytes % (A) 25.2 %; Monocytes # (A) 0.51 X 10*3/uL (0.20-1.00); Neutrophils # (A) 2.47 X 10*3/uL (1.80-7.70); Neutrophils % (A) 58.3 %
[2021-05-07 20:41] LABS: Microcytosis (M) 2+
[2021-05-07 22:30] LABS: Hemoglobin A1C 5.4 % (4.0-6.0)
[2021-05-08 07:13] LABS: African American GFR (CKD) 110.8 (60.0-200.0); Albumin/Globulin Ratio 1.82 (1.60-3.17); Anion Gap 7.5 mmol/L (4.00-12.00); BUN/Creat Ratio 18.57 Ratio (12.00-20.00); Calcium 8.8 mg/dL (8.7-10.3); Carbon Dioxide 27.5 mmol/L (21.6-31.8); Globulin 2.2 g/dL (1.6-3.3); Non-African American GFR(CKD) 95.6 (60.0-200.0); Potassium 4.6 mmol/L (3.5-5.5); Total Bilirubin 0.6 mg/dL (0.2-1.2); Total Protein 6.2 g/dL (6.2-8.2)
[2021-05-08 07:14] LABS: % Iron Saturation 25.55 (15.00-50.00)
[2021-05-08 09:42] LABS: Ferritin 400.1 ng/mL (22.0-322.0); T4, Free (Free Thyroxine) 0.7 ng/dL (0.80-1.80)
== END | disposition home or self-care (01) ==
LOC: LABWHC1 13:19
PROVIDERS: ATTEND Psychiatry & Neurology Pain Medicine
DX: R53.83 Other fatigue (principal)
CPT/HCPCS: 36415; 80053; 82533; 82626; 82728; 83036; 83540; 83550; 84402; 84403; 84439; 84443; 84466; 84481; 85025

== ENCOUNTER → 2021-05-07 | Outpatient (CLI) | payer MEDICARE ==
--- NOTE | 2021-05-07 13:28 | US ---
EXAMINATION TYPE: US venous doppler duplex LE LT DATE OF EXAM: 05/07/2021 1:10 PM COMPARISON: 05/21/2019 CLINICAL HISTORY: R22.42 Localized swelling, mass and lump, left lower leg. Left leg swelling. No pa in. No redness. SIDE PERFORMED: Left TECHNIQUE: The lower extremity deep venous system is examined utilizing real time linear array sonog [place] with graded compression, doppler sonography and color-flow sonography. VESSELS IMAGED: Common Femoral Vein Deep Femoral Vein Greater Saphenous Vein * Femoral Vein Popliteal Vein Small Saphenous Vein * Proximal Calf Veins (* superficial vessels) Left Leg: Negative for DVT IMPRESSION: Grayscale, color doppler, spectral doppler imaging performed of the deep veins of the lo wer extremities. There is normal flow, compressibility, vascular waveforms.
== END | disposition home or self-care (01) ==
LOC: RADUSWWP 12:46
PROVIDERS: ATTEND Family Medicine
DX: R22.42 Localized swelling, mass and lump, left lower limb (principal)

== ENCOUNTER 2021-06-22 09:26 | Observation (INO) | payer MEDICARE ==
[~2021-06-22 09:26] MED LIST changes: +DEXAMETHASONE SOD PHOSPHATE 4 MG/ML 1 ML VIAL IV ONE; -LACTATED RINGERS 1,000 ML IV SCH; +ONDANSETRON 4 MG/2 ML VIAL IVP ONE; +Pre Op ABX Message 1 EACH MISC MISCELLANE ONE
[2021-06-22] MEDS ORDERED: LIDOCAINE 1% (10MG/ML) FOR IV START INTRADERMA ONE (10:15)
[2021-06-22] MEDS: LACTATED RINGERS 1,000 ML IV SCH ×2 (10:15→16:54)
[2021-06-22] MEDS ORDERED: fentaNYL (PF) 50 MCG/ML 2 ML AMP IV ONE (10:43)
[2021-06-22] MEDS ORDERED: MIDAZOLAM 2 MG/2 ML VIAL IV ONE (10:43)
[2021-06-22] MEDS ORDERED: ROPIVACAINE 5 MG/ML 30 ML VIAL ONE (11:21)
[2021-06-22] MEDS ORDERED: PROPOFOL 10 MG/ML 20 ML VIAL IV ONE (11:21)
[2021-06-22] MEDS ORDERED: ePHEDrine 50 MG/ML 1 ML AMP ONE (11:21)
[2021-06-22] MEDS ORDERED: SODIUM CHLORIDE 0.9% (PF) 10 ML VIAL ONE (11:21)
[2021-06-22] MEDS ORDERED: HYDROmorphone (PF) 1 MG/ML ONE (11:21)
[2021-06-22] MEDS ORDERED: fentaNYL (PF) 50 MCG/ML 2 ML AMP ONE (11:21)
[2021-06-22] MEDS ORDERED: GLYCOPYRROLATE 0.2 MG/ML 2 ML VIAL ONE (11:21)
[2021-06-22] MEDS ORDERED: DEXAMETHASONE SOD PHOSPHATE 4 MG/ML 1 ML VIAL ONE (11:21)
[2021-06-22] MEDS ORDERED: LIDOCAINE 1% INJ 10MG/ML (20 ML MDV) ONE (11:21)
[2021-06-22] MEDS ORDERED: ceFAZolin 1,000 MG in SODIUM CHLORIDE 0.9% 1,000 ML IRRIGATION ONE (11:25)
[2021-06-22] MEDS ORDERED: SODIUM CHLORIDE 0.9% 100 ML with ceFAZolin 2,000 MG IV ONE ×2 (11:25)
--- NOTE | 2021-06-22 12:03 | P.OP ---
Date of Procedure: 06/22/21 Preoperative Diagnosis: Recurrent dislocation left patella Postoperative Diagnosis: Recurrent dislocation left patella Procedure(s) Performed: Open lateral release and medial imbrication left patella Anesthesia: ROCIO Surgeon: Shen Del Rosario Animal Therapist #1: Isidra Hodges Estimated Blood Loss (ml): 20 Pathology: none sent Condition: stable Disposition: PACU Indications for Procedure: This is a 70-year-old gentleman that has had a left total knee arthroplasty performed on 05/14/2019. He is done well but over the past few months is developed a recurrent dislocation of his left patella. He is failed conservative treatment with a brace and after discussing the surgical and nonsurgical treatment options at length, he wishes to proceed with an open lateral release and medial imbrication of his left patella. Informed consent was obtained. Operative Findings: The operative findings are consistent with a lateral subluxation of the left patella. The dislocation only occurs when the patient actively flexes his knee. Description of Procedure: The patient was seen in the preoperative area, the consent was reviewed, and the operative site was marked with a skin marker. Patient was given an abductor canal block in the preoperative area by anesthesia. Patient was then brought to the operating room and given a general anesthetic. Tourniquet was placed on the upper thigh and the lower extremities prepped and draped in usual sterile fashion. 2 g of Ancef were given intravenously preoperatively. A universal timeout was then performed which confirmed the patient's name, surgical site, ALLERGIES, and consent. The left lower externally was exsanguinated and the tourniquet was inflated to 250 mmHg. The prior incision was utilized with the skin and subcu tissue sharply incised. The patellar tendon was then exposed. Utilizing cautery, a lateral release was performed next a medial parapatellar arthrotomy was performed. A moderate amount of clear fluid was expressed from the knee. Next, using #1 Ethibond suture, the medial retinaculum was imbricated. After several Ethibond sutures were placed, additional #1 Vicryl sutures were placed as well. A tourniquet was then released and hemostasis was obtained. The knee was irrigated with pulsatile lavage. The incision was closed with 3-0 Vicryl followed by 3-0 strata fix suture. Next the fin skin glue was then placed. A sterile dressing was then applied. A long-leg well-padded and molded cast was applied. Patient was then transferred recovery room stable condition. Asst. SANTO Dexter was required due the complexity of the surgery the need for skilled surgical product sales consultant.
[2021-06-22] MEDS ORDERED: bisacodyL 10 MG SUPP RECTAL PRN (12:27)
[2021-06-22] MEDS ORDERED: NA PHOS,M-B/NA PHOS,DI-BA 133 ML ENEMA RECTAL PRN (12:27)
[2021-06-22] MEDS ORDERED: HYDROmorphone 0.2 MG/1 ML SYRINGE IVP PRN (12:27)
[2021-06-22] MEDS ORDERED: NALOXONE 0.4 MG/ML 1 ML VIAL IV PRN (12:27)
[2021-06-22] MEDS ORDERED: HYDROmorphone 0.5 MG/0.5 ML SYRINGE IVP PRN ×2 (12:27)
[2021-06-22] MEDS ORDERED: MAGNESIUM HYDROXIDE 2,400 MG/10 ML CUP PO PRN (12:27)
[2021-06-22] MEDS ORDERED: ONDANSETRON 4 MG/2 ML VIAL IVP PRN (12:27)
[2021-06-22] MEDS ORDERED: LACTATED RINGERS 1,000 ML IV ONE ×3 (12:28)
[2021-06-22] MEDS ORDERED: HYDROcodone/APAP 7.5-325MG 1 EACH TAB PO PRN (12:30)
[2021-06-22] MEDS: HYDROmorphone 0.5 MG/0.5 ML SYRINGE IVP PRN ×4 (12:36→14:30)
--- NOTE | 2021-06-22 14:05 | P.ANPRN ---
Procedure Note - Anesthesia - Nerve Block Performed Right Adductor Canal Single Time Out Performed: Yes (10:42) Date of Procedure: 06/22/21 Procedure Start Time: 10:43 Procedure Stop Time: 10:48 Location of Patient: PreOp Indication: Acute Post-Operative Pain, Dx/Pain Location (Right knee), Requested by Surgeon Specifically requested for management of pain by : Shen Del Rosario Sedation Type: Sedate with meaningful contact maintained Preparation: Sterile Prep Position: Supine Needle Types: Facet Needle Gauge: 21 Ultrasound used to visualize needle placement: Yes Ultrasound used to observe medication spread: Yes Injectate: 0.5% Ropivacaine (see comment for volume) (20cc 0.25%) Blood Aspirated: No Pain Paresthesia on Injection Noted: No Resistance on Injection: Normal Image Stored and Saved: Yes Left iPack Time Out Performed: Yes (10:42) Date of Procedure: 06/22/21 Procedure Start Time: 10:50 Procedure Stop Time: 10:52 Location of Patient: PreOp Indication: Acute Post-Operative Pain, Dx/Pain Location (Right Knee), Requested by Surgeon Specifically requested for management of pain by DrEdith: Shen Del Rosario Sedation Type: Sedate with meaningful contact maintained Preparation: Sterile Prep Position: Supine Catheter: None Needle Types: Facet Needle Gauge: 21 Ultrasound used to visualize needle placement: Yes Ultrasound used to observe medication spread: Yes Injectate: 0.5% Ropivacaine (see comment for volume) (20cc 0.25%) Blood Aspirated: No Pain Paresthesia on Injection Noted: No Resistance on Injection: Normal Image Stored and Saved: Yes Events: Uneventful and Well Tolerated
[2021-06-22] MEDS: SODIUM CHLORIDE 0.9% 1,000 ML IV SCH (16:54)
[2021-06-22] MEDS: HYDROcodone/APAP 7.5-325MG 1 EACH TAB PO PRN (16:59)
[2021-06-22] MEDS: ASPIRIN 81 MG PO SCH (20:31)
[2021-06-22] MEDS: SENNOSIDES-DOCUSATE SODIUM 1 EACH TAB PO SCH (20:34)
--- NOTE | 2021-06-23 07:33 | P.PN ---
Subjective Progress Note Date: 06/23/21 Principal diagnosis: Recurrent patellar dislocation left knee. Status post total left knee arthroplasty. This is a 70-year-old male who is postop day #1 status post open lateral retinacular release of the left knee. The patient is in a long-leg cast. He has no new complaints or concerns today. Vital signs are stable. He states that the pain is moderate to severe. Objective - Vital Signs Vital signs: Vital Signs Temp 96.6 F L 06/23/21 01:40 Pulse 42 L 06/23/21 01:40 Resp 18 06/22/21 20:00 BP 110/67 06/23/21 01:40 Pulse Ox 99 06/23/21 01:40 Intake & Output 06/22/21 06/23/21 06/23/21 18:59 06:59 18:59 Intake Total 1801 Output Total 820 550 Balance 981 -550 Weight 117.7 kg Intake: IV 1801 Output: Urine 800 550 Estimated Blood Loss 20 Other: Voiding Method Urinal Urinal # Voids 2 # Bowel Movements 0 - Exam This is a pleasant 70-year-old male in no acute distress. He is alert and oriented 3. Exam of the left lower extremity reveals that the long leg cast is intact. He has full toe motion without difficulty. He has normal sensation to the toes. Neurovascular status to the lower extremities is intact. Assessment and Plan (1) Recurrent dislocation of left patella Current Visit: Yes Status: Acute Code(s): M22.02 - RECURRENT DISLOCATION OF PATELLA, LEFT KNEE SNOMED Code(s): 836732260 (2) History of total left knee replacement Current Visit: Yes Status: Acute Code(s): Z96.652 - PRESENCE OF LEFT ARTIFICIAL KNEE JOINT SNOMED Code(s): 4309409594994 Plan: The clinical findings are discussed with the patient. He has not yet been up with physical therapy. He is having some issues with pain management. Recommend continue to keep him inpatient today and have therapy evaluate. He is hoping to be able to be discharged home tomorrow. If needed we will consider inpatient rehab.
[2021-06-23] MEDS: SODIUM CHLORIDE 0.9% 1,000 ML IV SCH ×2 (08:17→15:34)
[2021-06-23] MEDS: ASPIRIN 81 MG PO SCH ×2 (08:17→20:33)
[2021-06-23] MEDS: HYDROcodone/APAP 7.5-325MG 1 EACH TAB PO PRN ×3 (08:18→20:32)
[2021-06-23] MEDS ORDERED: MORPHINE SULFATE ER 60 MG TABLET PO PRN (08:22)
--- NOTE | 2021-06-23 08:28 | P.CONS ---
History of Present Illness - Reason for Consult Consult date: 06/23/21 Bradycardia medical management Requesting physician: Shen Del Rosario - Chief Complaint Left knee arthroplasty - History of Present Illness This is a history of physical 70-year-old white male with known history of electrocution in the past which caused fpc approximate 8-10 years ago. The patient has been disabled and retired since then and is now seen secondary t o postop left knee arthroplasty. The patient has rheumatoid arthritis and gout. No sniffing chest pain or shortness of breath but the patient actually developed asymptomatic bradycardia. Blood pressure has been relatively stable as of recent. Heart rate has been anywhere from 30s and the 50s no loss of consciousness. No chest pain. 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 STEROID INJECTION KNEES. COLONOSCOPY Past Anesthesia/Blood Transfusion Reactions: No Reported Reaction Past Psychological History: No Psychological Hx Reported Additional Psychological History / Comment(s): KLONOPIN- UNSURE WHY HE IS TAKING IT POSSIBLY FOR TREMORS" Smoking Status: Smoker, current status unknown Past Alcohol Use History: Occasional Additional Past Alcohol Use History / Comment(s): 1 cigars -smoking ON OCCASION . smoked approx <1 ppd from age 20 to age 40. Past Drug Use History: Marijuana Additional Drug Use History / Comment(s): Medical Marijuana card-last used ,uses approx 2-3 times per mos. INSTRUCTED TO REFRAIN FROM USE FOR AT LEAST 24 HOURS PRIOR TO PROCEDURE - Past Family History Mother Family Medical History: No Reported History Additional Family Medical History / Comment(s): of alcoholism Father Family Medical History: CVA/TIA, Myocardial Infarction ([place]) Medications and Allergies Home Medications Medication Instructions Recorded Confirmed Type RX: Doxazosin Mesylate [Cardura] 4 mg PO BID 10/14/15 06/21/21 History RX: Ferrous Sulfate [Iron (65 MG 325 mg PO DAILY 10/14/15 06/21/21 History Elemental)] RX: Folic Acid 1 mg PO DAILY 10/14/15 06/21/21 History RX: Simvastatin [Zocor] 80 mg PO DAILY 10/14/15 06/21/21 History RX: allopurinoL [Zyloprim] 300 mg PO DAILY 10/14/15 06/21/21 History RX: azaTHIOprine [Imuran] 50 mg PO DAILY 10/14/15 06/21/21 History Calcium Carbonate [Calcium] 600 mg PO DAILY #0 12/05/18 06/21/21 History RX: Certolizumab Pegol [Cimzia] 400 mg SQ Q28D 05/07/19 06/21/21 History RX: carvediloL [Coreg] 3.125 mg PO BID 05/13/19 06/21/21 History Morphine Pain Pump 1 dose INTRATHECA CONTINUOUS 12/05/19 06/21/21 History Gabapentin [Neurontin] 300 mg PO TID 02/11/20 06/21/21 History HYDROcodone/APAP 10-325MG [[place] 1 tab PO Q4-6H PRN 02/11/20 06/21/21 History 10-325] Morphine Sulfate ER [Ms Contin] 60 mg PO Q12HR PRN 02/11/20 06/21/21 History RX: Baclofen [Lioresal] 20 mg PO TID 02/11/20 06/21/21 History Ramipril [Altace] 10 mg PO DAILY 02/11/20 06/21/21 History clonazePAM [KlonoPIN] 4 mg PO TID 02/11/20 06/21/21 History Methotrexate/Pf [Reditrex 25 mg/ml 25 mg SQ MO 06/21/21 06/21/21 History Syringe] HYDROcodone/APAP 7.5-325MG [[place] 1 - 2 tab PO Q6H PRN #32 tab 06/22/21 Rx 7.5-325] Ondansetron Odt [Zofran Odt] 1 tab PO Q8HR PRN #10 tab 06/22/21 Rx RX: Aspirin [Adult Low Dose 81 mg PO BID 30 Days #60 tab 06/22/21 Rx Aspirin EC] Sennosides [Senokot] 2 tab PO DAILY PRN #60 tablet 06/22/21 Rx Allergies Allergy/AdvReac Type Severity Reaction Status Date / Time No Known Allergies Allergy Verified 06/21/21 10:47 Physical Exam Vitals: Vital Signs Temp Pulse Pulse Pulse Resp BP BP 06/23/21 08:02 51 L 18 06/23/21 01:40 96.6 F L 42 L 06/22/21 20:00 41 L 18 06/22/21 19:15 97.4 F L 46 L 06/22/21 17:08 43 L 06/22/21 17:03 37 L 06/22/21 16:51 46 L 06/22/21 16:49 06/22/21 16:42 38 L 18 06/22/21 16:37 39 L 06/22/21 16:33 36 L 22 06/22/21 16:23 48 L 06/22/21 16:08 41 L 06/22/21 15:54 47 L 06/22/21 15:40 97.3 F L 46 L 18 06/22/21 15:00 51 L 16 06/22/21 14:30 53 L 16 06/22/21 14:00 50 L 16 06/22/21 13:45 44 L 16 06/22/21 13:28 52 L 16 06/22/21 13:15 58 L 16 06/22/21 13:04 51 L 16 06/22/21 12:45 48 L 16 06/22/21 12:28 96.8 F L 51 L 18 06/22/21 10:01 97.2 F L 54 L 16 96/57 89/58 BP Pulse Ox 06/23/21 08:02 98/62 96 06/23/21 01:40 110/67 99 06/22/21 20:00 06/22/21 19:15 97/59 98 06/22/21 17:08 123/79 99 06/22/21 17:03 06/22/21 16:51 128/76 99 06/22/21 16:49 99 06/22/21 16:42 128/76 98 06/22/21 16:37 136/73 98 06/22/21 16:33 132/73 100 06/22/21 16:23 107/64 83 L 06/22/21 16:08 121/73 93 L 06/22/21 15:54 124/73 93 L 06/22/21 15:40 115/67 93 L 06/22/21 15:00 142/67 100 06/22/21 14:30 139/65 100 06/22/21 14:00 141/79 100 06/22/21 13:45 148/84 100 06/22/21 13:28 138/82 99 06/22/21 13:15 146/72 100 06/22/21 13:04 145/78 99 06/22/21 12:45 150/91 99 06/22/21 12:28 135/80 95 06/22/21 10:01 95 Intake and Output 06/22/21 06/23/21 06/23/21 22:59 06:59 14:59 Intake Total 700 Output Total 550 Balance 700 -550 Intake: IV 700 Output: Urine 550 Other: Voiding Method Urinal # Voids 2 # Bowel Movements 0 Weight 117.7 kg - Constitutional General appearance: no acute distress - EENT Eyes: EOMI - Neck Neck: no lymphadenopathy - Respiratory Respiratory: bilateral: CTA - Cardiovascular Rhythm: regular Heart sounds: normal: S1, S2 Abnormal Heart Sounds: no S3 Gallop - Gastrointestinal General gastrointestinal: soft, no tenderness - Integumentary Integumentary: no cellulitis Assessment and Plan (1) Sinus bradycardia Current Visit: Yes Status: Acute Code(s): R00.1 - BRADYCARDIA, UNSPECIFIED SNOMED Code(s): 02040543 (2) Electrocution and nonfatal effects of electric current Current Visit: Yes Status: Acute Code(s): T75.4XXA - ELECTROCUTION, INITIAL ENCOUNTER SNOMED Code(s): 685343107 (3) History of total left knee replacement Current Visit: Yes Status: Acute Code(s): Z96.652 - PRESENCE OF LEFT ARTIFICIAL KNEE JOINT SNOMED Code(s): 2249576935420 Plan: Asymptomatic bradycardia. Postop day #1 for left knee arthroplasty. Pain control control per surgery. Reconcile home medications however. I suspect the patient should have a Holter monitor versus event monitor as an outpatient. I suspect the patient can be discharged once cleared by cardiology today. Time with Patient: Greater than 30
[2021-06-23] MEDS ORDERED: CERTOLIZUMAB PEGOL 400 MG/2 ML SQ SCH (08:30)
[2021-06-23] MEDS: DOXAZOSIN 4 MG TAB PO SCH ×2 (08:57→20:36)
[2021-06-23] MEDS ORDERED: lisinopriL 20 MG TAB PO SCH (09:00)
[2021-06-23 09:44] LABS: Basophils # (A) 0.01 X 10*3/uL (0.00-0.10); Basophils % (A) 0.1 %; Eosinophils # (A) 0.02 X 10*3/uL (0.04-0.35); Eosinophils % (A) 0.2 %; HCT 33.7 % (39.6-50.0); Lymphocytes % (A) 3.5 %; MCHC 32.6 g/dL (32.0-37.0); MCV 107.3 fL (80.0-97.0); Mean Platelet Volume 10.9 fL (9.5-12.2); Monocytes # (A) 0.44 X 10*3/uL (0.20-1.00); Monocytes % (A) 5.2 %; Neutrophils # (A) 7.69 X 10*3/uL (1.80-7.70); Neutrophils % (A) 90.5 %; Platelet Count 171 X 10*3/uL (140-440); RBC 3.14 X 10*6/uL (4.40-5.60); RDW 15.2 % (11.5-14.5)
[2021-06-23] MEDS: ATORVASTATIN 40 MG TAB PO SCH (10:05)
[2021-06-23] MEDS: CALCIUM CARBONATE 500 MG CHEWABLE PO SCH (10:05)
[2021-06-23] MEDS: GABAPENTIN 300 MG CAP PO SCH ×3 (10:05→20:32)
[2021-06-23] MEDS: FERROUS SULFATE 325 MG TAB PO SCH (10:06)
[2021-06-23] MEDS: allopurinoL 300 MG TAB PO SCH (10:06)
[2021-06-23] MEDS: azaTHIOprine 50 MG TAB PO SCH (10:07)
[2021-06-23] MEDS: FOLIC ACID 1 MG TAB PO SCH (10:07)
[2021-06-23] MEDS: PATIENT'S OWN (Morphine Pain Pump 1 DOSE) MISCELLANE SCH (10:10)
[2021-06-23] MEDS: BACLOFEN 10 MG TAB PO SCH ×3 (10:10→20:32)
[2021-06-23] MEDS: clonazePAM 1 MG TAB PO SCH ×3 (10:11→20:32)
[2021-06-23 12:36] LABS: T4, Free (Free Thyroxine) 0.8 ng/dL (0.78-2.19)
--- NOTE | 2021-06-23 13:20 | P.CRDCN ---
History of Present Illness History of present illness: HISTORY OF PRESENTING ILLNESS This is a pleasant 70-year-old male past medical history significant for obstructive sleep apnea wears CPAP, rheumatoid arthritis, irritable bowel syndrome, history of hypertension and hypotension, hyperlipidemia, lumbar pain, cervical rediculopathy, pain pump, neuro stimulator back, left total knee replacement. He denies seeing a business department chair. However, did see Dr. Kearney in December 2020. We have been asked to see in consultation for bradycardia. Patient presents to the hospital on 06/22/21 for planned repair open lateral release and medial imbrication of left patella with Dr. Del Rosario. Patient seen and examined at bedside, no acute distress. He denies symptoms of chest pain, shortness of breath, palpitations, lightheadedness, dizziness, syncope or presyncope. He states he was started on carvedilol because he was told that his heart was "mushy" by a previous doctor. His last dose was 06/22 morning. He denies any history of CAD, [place], Stroke, hypertension, diabetes. He occasionally smokes cigars, occasionally drinks alcohol. He has been told his blood pressure runs low. Yesterday, postoperative, RN found patient's HR 32, BP was stable, patient was asymptomatic. EKG was performed. No meds given. DIAGNOSTICS EKG: Sinus bradycardia, heart rate 36, nonspecific ST-T wave abnormalities. Telemetry tracings indicate sinus bradycardia, HR 35-50s, has less than 3 second pauses noted. Patient currently HR high 40s-50s. Most recent echocardiogram December 2019 revealed EF of 50%, normal diastolic function, mild mitral regurgitation, trace aortic regurgitation, mild tricuspid regurgitation Lexiscan stress test in 2018, negative for stress-induced ischemia. Mild generalized hypokinesis with an EF of 45%. Laboratory reviewed, WBC 8.5, hemoglobin 11, platelets 171 Current cardiac medications include Carvedilol 3.125mg BID, simvastatin 80 mg daily, ramipril 10 mg daily REVIEW OF SYSTEMS At the time of my exam: CONSTITUTIONAL: Denies fever or chills. CARDIOVASCULAR: Denies chest pain, shortness of breath, orthopnea, PND or palpitations. RESPIRATORY: Denies cough. GASTROINTESTINAL: Denies abdominal pain, diarrhea, constipation, nausea or vom iting. MUSCULOSKELETAL: Denies myalgias. NEUROLOGIC: Denies numbness, tingling, headacbe or weakness. ENDOCRINE: Denies fatigue, weight change, polydipsia or polyurina. GENITOURINARY: Denies burning, hematuria or urgency with micturation. HEMATOLOGIC: Denies history of anemia or bleeding. PHYSICAL EXAMINATION Blood pressure 88/54, heart rate 51, afebrile and saturations 96% on 2 L nasal cannula CONSTITUTIONAL: No apparent distress. HEENT: Head is normocephalic. Pupils are equal, round. Sclerae anicteric. Mucous membranes of the mouth are moist. No JVD. No carotid bruit. CHEST EXAMINATION: Lungs are clear to auscultation. No chest wall tenderness is noted on palpation or with deep breathing. HEART EXAMINATION: Regular rate and rhythm. S1, S2 heard. No murmurs, gallops or rub. ABDOMEN: Soft, nontender. Positive bowel sounds. EXTREMITIES: no lower extremity edema and no calf tenderness. Left leg in cast. NEUROLOGIC EXAMINATION: Patient is awake, alert and oriented x3. ASSESSMENT Status post repair open lateral release and medial imbrication of left patella Sinus bradycardia History of hypertension, hypotensive this admission Obstructive sleep apnea Rheumatoid arthritis Irritable bowel syndrome PLAN Obtain 2D echocardiogram Hold AV refugio blocking agents Hold Lisinopril for hypotension Continue cardiac telemetry Further recommendations based on clinical course Nurse Practitioner note has been reviewed, I agree with a documented findings and plan of care. Patient was seen and examined. 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 STEROID INJECTION KNEES. COLONOSCOPY Past Anesthesia/Blood Transfusion Reactions: No Reported Reaction Past Psychological History: No Psychological Hx Reported Additional Psychological History / Comment(s): KLONOPIN- UNSURE WHY HE IS TAKING IT POSSIBLY FOR TREMORS" Smoking Status: Smoker, current status unknown Past Alcohol Use History: Occasional Additional Past Alcohol Use History / Comment(s): 1 cigars -smoking ON OCCASION . smoked approx <1 ppd from age 20 to age 40. Past Drug Use History: Marijuana Additional Drug Use History / Comment(s): Medical Marijuana card-last used ,uses approx 2-3 times per mos. INSTRUCTED TO REFRAIN FROM USE FOR AT LEAST 24 HOURS PRIOR TO PROCEDURE - Past Family History Mother Family Medical History: No Reported History Additional Family Medical History / Comment(s): of alcoholism Father Family Medical History: CVA/TIA, Myocardial Infarction ([place]) Medications and Allergies Home Medications Medication Instructions Recorded Confirmed Type Doxazosin Mesylate [Cardura] 4 mg PO BID 10/14/15 06/21/21 History Ferrous Sulfate [Iron (65 MG 325 mg PO DAILY 10/14/15 06/21/21 History Elemental)] Folic Acid 1 mg PO DAILY 10/14/15 06/21/21 History Simvastatin [Zocor] 80 mg PO DAILY 10/14/15 06/21/21 History allopurinoL [Zyloprim] 300 mg PO DAILY 10/14/15 06/21/21 History azaTHIOprine [Imuran] 50 mg PO DAILY 10/14/15 06/21/21 History Calcium Carbonate [Calcium] 600 mg PO DAILY #0 12/05/18 06/21/21 History Certolizumab Pegol [Cimzia] 400 mg SQ Q28D 05/07/19 06/21/21 History carvediloL [Coreg] 3.125 mg PO BID 05/13/19 06/21/21 History Morphine Pain Pump 1 dose INTRATHECA CONTINUOUS 12/05/19 06/21/21 History Baclofen [Lioresal] 20 mg PO TID 02/11/20 06/21/21 History Gabapentin [Neurontin] 300 mg PO TID 02/11/20 06/21/21 History HYDROcodone/APAP 10-325MG [[place] 1 tab PO Q4-6H PRN 02/11/20 06/21/21 History 10-325] Morphine Sulfate ER [Ms Contin] 60 mg PO Q12HR PRN 02/11/20 06/21/21 History Ramipril [Altace] 10 mg PO DAILY 02/11/20 06/21/21 History clonazePAM [KlonoPIN] 4 mg PO TID 02/11/20 06/21/21 History Methotrexate/Pf [Reditrex 25 mg/ml 25 mg SQ MO 06/21/21 06/21/21 History Syringe] Aspirin [Adult Low Dose Aspirin EC] 81 mg PO BID 30 Days #60 tab 06/22/21 Rx HYDROcodone/APAP 7.5-325MG [[place] 1 - 2 tab PO Q6H PRN #32 tab 06/22/21 Rx 7.5-325] Ondansetron Odt [Zofran Odt] 1 tab PO Q8HR PRN #10 tab 06/22/21 Rx Sennosides [Senokot] 2 tab PO DAILY PRN #60 tablet 06/22/21 Rx Allergies Allergy/AdvReac Type Severity Reaction Status Date / Time No Known Allergies Allergy Verified 06/21/21 10:47 Physical Exam Vitals: Vital Signs Temp Pulse Pulse Pulse Resp BP BP 06/23/21 08:50 51 L 06/23/21 08:02 51 L 18 06/23/21 01:40 96.6 F L 42 L 06/22/21 20:00 41 L 18 06/22/21 19:15 97.4 F L 46 L 06/22/21 17:08 43 L 06/22/21 17:03 37 L 06/22/21 16:51 46 L 06/22/21 16:49 06/22/21 16:42 38 L 18 06/22/21 16:37 39 L 06/22/21 16:33 36 L 22 06/22/21 16:23 48 L 06/22/21 16:08 41 L 06/22/21 15:54 47 L 06/22/21 15:40 97.3 F L 46 L 18 06/22/21 15:00 51 L 16 06/22/21 14:30 53 L 16 06/22/21 14:00 50 L 16 06/22/21 13:45 44 L 16 06/22/21 13:28 52 L 16 06/22/21 13:15 58 L 16 06/22/21 13:04 51 L 16 06/22/21 12:45 48 L 16 06/22/21 12:28 96.8 F L 51 L 18 06/22/21 10:01 97.2 F L 54 L 16 96/57 89/58 BP Pulse Ox 06/23/21 08:50 88/54 06/23/21 08:02 98/62 96 06/23/21 01:40 110/67 99 06/22/21 20:00 06/22/21 19:15 97/59 98 06/22/21 17:08 123/79 99 06/22/21 17:03 06/22/21 16:51 128/76 99 06/22/21 16:49 99 06/22/21 16:42 128/76 98 06/22/21 16:37 136/73 98 06/22/21 16:33 132/73 100 06/22/21 16:23 107/64 83 L 06/22/21 16:08 121/73 93 L 06/22/21 15:54 124/73 93 L 06/22/21 15:40 115/67 93 L 06/22/21 15:00 142/67 100 06/22/21 14:30 139/65 100 06/22/21 14:00 141/79 100 06/22/21 13:45 148/84 100 06/22/21 13:28 138/82 99 06/22/21 13:15 146/72 100 06/22/21 13:04 145/78 99 06/22/21 12:45 150/91 99 06/22/21 12:28 135/80 95 06/22/21 10:01 95 Intake and Output 06/22/21 06/23/21 06/23/21 22:59 06:59 14:59 Intake Total 700 Output Total 550 Balance 700 -550 Intake: IV 700 Output: Urine 550 Other: Voiding Method Urinal # Voids 2 # Bowel Movements 0 Weight 117.7 kg Results 06/23/21 05:27 Current Medications Generic Name Dose Route Start Last Admin Trade Name Sonia PRN Reason Stop Dose Admin Hydrocodone Bitart/Acetaminophen 1 each 06/22/21 12:30 06/23/21 08:18 Hydrocodone/Apap 7.5-325mg 1 Each Tab PO 07/22/21 12:31 1 each Q6H PRN Administration Pain Scale 1 to 5 Hydrocodone Bitart/Acetaminophen 2 each 06/22/21 12:30 06/22/21 22:47 Hydrocodone/Apap 7.5-325mg 1 Each Tab PO 07/22/21 12:31 2 each Q6H PRN Administration Pain Scale 6 to 10 Allopurinol 300 mg 06/23/21 09:00 Allopurinol 300 Mg Tab PO DAILY [facility] Aspirin 81 mg 06/22/21 21:00 06/23/21 08:17 Aspirin 81 Mg PO 07/22/21 21:01 81 mg BID [facility] Administration Atorvastatin Calcium 40 mg 06/23/21 09:00 Atorvastatin 40 Mg Tab PO DAILY [facility] Azathioprine 50 mg 06/23/21 09:00 Azathioprine 50 Mg Tab PO DAILY [facility] Baclofen 20 mg 06/23/21 09:00 Baclofen 10 Mg Tab PO TID [facility] Bisacodyl 10 mg 06/22/21 12:27 Bisacodyl 10 Mg Supp RECTAL 07/22/21 12:28 DAILY PRN Constipation Calcium Carbonate/Glycine 500 mg 06/23/21 09:00 Calcium Carbonate 500 Mg Chewable PO DAILY [facility] Clonazepam 4 mg 06/23/21 09:00 Clonazepam 1 Mg Tab PO TID [facility] Doxazosin Mesylate 4 mg 06/23/21 09:00 06/23/21 08:57 Doxazosin 4 Mg Tab PO Not Given BID [facility] Ferrous Sulfate 325 mg 06/23/21 09:00 Ferrous Sulfate 325 Mg Tab PO DAILY [facility] Folic Acid 1 mg 06/23/21 09:00 Folic Acid 1 Mg Tab PO DAILY [facility] Gabapentin 300 mg 06/23/21 09:00 Gabapentin 300 Mg Cap PO TID [facility] Hydromorphone HCl 0.2 mg 06/22/21 12:27 Hydromorphone 0.2 Mg/1 Ml Syringe IVP 07/22/21 12:28 Q3HR PRN Pain Scale 4 to 6 Hydromorphone HCl 0.125 mg 06/22/21 12:27 Hydromorphone 0.5 Mg/0.5 Ml Syringe IVP 07/22/21 12:28 Q3HR PRN Pain Scale 1 to 3 Hydromorphone HCl 0.5 mg 06/22/21 12:27 Hydromorphone 0.5 Mg/0.5 Ml Syringe IVP 07/22/21 12:28 Q3HR PRN Pain Scale 7 to 10 Lactated Ringer's 1,000 mls @ 20 mls/hr 06/21/21 16:45 06/22/21 16:54 Lactated Ringers IV 07/21/21 16:46 Not Given .Q24H [facility] Sodium Chloride 1,000 mls @ 70 mls/hr 06/22/21 12:30 06/23/21 08:17 Saline 0.9% IV 07/22/21 12:31 70 mls/hr .[id number] [facility] Administration Lisinopril 40 mg 06/23/21 09:00 06/23/21 08:57 Lisinopril 20 Mg Tab PO Not Given DAILY [facility] Magnesium Hydroxide 2,400 mg 06/22/21 12:27 Magnesium Hydroxide 2,400 Mg/10 Ml Cup PO 07/22/21 12:28 DAILY PRN Constipation Morphine Sulfate 60 mg 06/23/21 08:22 Morphine Sulfate Er 60 Mg Tablet PO Q12HR PRN Pain Control Protocol Naloxone HCl 0.2 mg 06/22/21 12:27 Naloxone 0.4 Mg/Ml 1 Ml Vial IV 07/22/21 12:28 Q2M PRN Opioid Reversal Patient's Own ( 400 mg 06/23/21 08:30 06/23/21 08:55 Certolizumab Pegol [ SQ Not Given Cimzia] 400 Mg/2 Ml Q28D [facility] Syringekit) Patient's Own ( 25 mg 07/15/21 12:00 Methotrexate/Pf [ SQ Reditrex 25 Mg/Ml MO [facility] Syringe] 25 Mg/Ml Each) Patient's Own ( 1 dose 06/23/21 08:30 Morphine Pain Pump 1 MISCELLANE Dose) CONTINUOUS [facility] Ondansetron HCl 4 mg 06/22/21 12:27 Ondansetron 4 Mg/2 Ml Vial IVP 07/22/21 12:28 Q8HR PRN Nausea And Vomiting Senna/Docusate Sodium 2 each 06/22/21 21:00 06/22/21 20:34 Sennosides-Docusate Sodium 1 Each Tab PO 07/22/21 21:01 2 each HS [facility] Administration Sodium Biphosphate/Sodium Phosphate 133 ml 06/22/21 12:27 Na Phos,M-B/Na Phos,Di-Ba 133 Ml Enema RECTAL 07/22/21 12:28 DAILY PRN Constipation Intake and Output 06/22/21 06/23/21 06/23/21 22:59 06:59 14:59 Intake Total 700 Output Total 550 Balance 700 -550 Intake: IV 700 Output: Urine 550 Other: Voiding Method Urinal # Voids 2 # Bowel Movements 0 Weight 117.7 kg
[2021-06-23] MEDS: LACTATED RINGERS 1,000 ML IV SCH (15:14)
[2021-06-23] MEDS: SENNOSIDES-DOCUSATE SODIUM 1 EACH TAB PO SCH (20:31)
[2021-06-24 02:32] VITALS: RESP 16; TEMP 98.2
[2021-06-24 08:06] VITALS: BP 111/69; PULSE 51
--- NOTE | 2021-06-24 08:27 | P.PN ---
Subjective Principal diagnosis: A symptomatically bradycardia. This 70-year-old white male essentially admitted for left knee repair. Postoperatively found to have significant bradycardia. Echocardiogram is pending. The patient does not complain of chest pain or shortness of breath. Objective - Vital Signs Vital signs: Vital Signs Temp 98.2 F 06/24/21 08:00 Pulse 51 L 06/24/21 08:00 Resp 16 06/24/21 08:00 BP 111/69 06/24/21 08:00 Pulse Ox 94 L 06/24/21 08:00 Intake & Output 06/23/21 06/24/21 06/24/21 18:59 06:59 18:59 Intake Total 200 Output Total 550 Balance -350 Intake: Oral 200 Output: Urine 550 Other: Voiding Method Urinal # Voids 5 2 # Bowel Movements 0 - Constitutional General appearance: Present: average body habitus. Absent: mild distress - EENT Eyes: Absent: abnormal pupil - Neck Neck: Absent: lymphadenopathy - Respiratory Respiratory: bilateral: CTA - Cardiovascular Rhythm: regular Heart sounds: normal: S1, S2 Abnormal Heart Sounds: Absent: S3 Gallop - Gastrointestinal General gastrointestinal: Present: soft. Absent: tenderness - Labs CBC & Chem 7: 06/23/21 05:27 Labs: Abnormal Lab Results - Last 24 Hours (Table) 06/23/21 06/23/21 Range/Units 05:27 05:27 RBC 3.14 L (4.40-5.60) X 10*6/uL Hgb 11.0 L (13.0-17.0) g/dL Hct 33.7 L (39.6-50.0) % MCV 107.3 H (80.0-97.0) fL MCH 35.0 H (27.0-32.0) pg RDW 15.2 H (11.5-14.5) % Lymphocytes # 0.30 L (0.90-5.00) X 10*3/uL Eosinophils # 0.02 L (0.04-0.35) X 10*3/uL TSH 0.409 L (0.465-4.680) mIU/L Assessment and Plan (1) Sinus bradycardia Current Visit: Yes Status: Acute Code(s): R00.1 - BRADYCARDIA, UNSPECIFIED SNOMED Code(s): 75276184 (2) Electrocution and nonfatal effects of electric current Current Visit: Yes Status: Acute Code(s): T75.4XXA - ELECTROCUTION, INITIAL ENCOUNTER SNOMED Code(s): 165020627 (3) History of total left knee replacement Current Visit: Yes Status: Acute Code(s): Z96.652 - PRESENCE OF LEFT ARTIFICIAL KNEE JOINT SNOMED Code(s): 2413931520964 Plan: Asymptomatic bradycardia. Postop day #2 for left knee arthroplasty. Pain control control per surgery. Reconcile home medications however. I suspect the patient should have a Holter monitor versus event monitor as an outpatient. I suspect the patient can be discharged once cleared by cardiology in the next 24-48 hours.
[2021-06-24] MEDS: GABAPENTIN 300 MG CAP PO SCH (08:29)
[2021-06-24] MEDS: ASPIRIN 81 MG PO SCH (08:29)
[2021-06-24] MEDS: CALCIUM CARBONATE 500 MG CHEWABLE PO SCH (08:29)
[2021-06-24] MEDS: FOLIC ACID 1 MG TAB PO SCH (08:29)
[2021-06-24] MEDS: allopurinoL 300 MG TAB PO SCH (08:29)
[2021-06-24] MEDS: ATORVASTATIN 40 MG TAB PO SCH (08:30)
[2021-06-24] MEDS: FERROUS SULFATE 325 MG TAB PO SCH (08:30)
[2021-06-24] MEDS: HYDROcodone/APAP 7.5-325MG 1 EACH TAB PO PRN (08:30)
[2021-06-24] MEDS: BACLOFEN 10 MG TAB PO SCH (08:30)
[2021-06-24] MEDS: PATIENT'S OWN (Morphine Pain Pump 1 DOSE) MISCELLANE SCH (08:31)
[2021-06-24] MEDS: SODIUM CHLORIDE 0.9% 1,000 ML IV SCH (08:31)
[2021-06-24] MEDS: clonazePAM 1 MG TAB PO SCH (08:31)
--- NOTE | 2021-06-24 08:57 | P.PN ---
Subjective Progress Note Date: 06/24/21 This is a 70-year-old male who is status post open lateral release and medial imbrication left patella. This is postoperative day #2 and patient is seen and evaluated at bedside today. Patient states that his pain has somewhat improved since yesterday, but he has not worked with physical therapy yet today. Patient denies any new complaints today. Patient is awaiting a cardiology consult due to bradycardia and hypotension. Per nursing, the patient's blood pressure and pulse have improved today. Objective - Vital Signs Vital signs: Vital Signs Temp 98.2 F 06/24/21 08:00 Pulse 51 L 06/24/21 08:00 Resp 16 06/24/21 08:00 BP 111/69 06/24/21 08:00 Pulse Ox 94 L 06/24/21 08:00 Intake & Output 06/23/21 06/24/21 06/24/21 18:59 06:59 18:59 Intake Total 200 Output Total 550 Balance -350 Intake: Oral 200 Output: Urine 550 Other: Voiding Method Urinal # Voids 5 2 # Bowel Movements 0 - Exam Vital signs are stable. Patient is in no acute distress and is alert and oriented 3. Cast is clean, dry, and intact. Capillary refill is normal at <2 seconds. Sensation intact. Neurovascular status and circulatory status are intact. - Labs CBC & Chem 7: 06/23/21 05:27 Labs: Abnormal Lab Results - Last 24 Hours (Table) 06/23/21 06/23/21 Range/Units 05:27 05:27 RBC 3.14 L (4.40-5.60) X 10*6/uL Hgb 11.0 L (13.0-17.0) g/dL Hct 33.7 L (39.6-50.0) % MCV 107.3 H (80.0-97.0) fL MCH 35.0 H (27.0-32.0) pg RDW 15.2 H (11.5-14.5) % Lymphocytes # 0.30 L (0.90-5.00) X 10*3/uL Eosinophils # 0.02 L (0.04-0.35) X 10*3/uL TSH 0.409 L (0.465-4.680) mIU/L Assessment and Plan (1) History of total left knee replacement Current Visit: Yes Status: Acute Code(s): Z96.652 - PRESENCE OF LEFT ARTIFICIAL KNEE JOINT SNOMED Code(s): 7424542534399 (2) Recurrent dislocation of left patella Current Visit: Yes Status: Acute Code(s): M22.02 - RECURRENT DISLOCATION OF PATELLA, LEFT KNEE SNOMED Code(s): 452806537 Plan: 1. Keep cast clean, dry and intact. Elevate for swelling. 2. Continue pain control. 3. Aspirin for DVT prophylaxis. 4. Awaiting cardiology consult. 5. Appreciate input from medicine. 6. Planning for discharge home with home care or to inpatient rehab depending on how patient does with physical therapy today.
--- NOTE | 2021-06-24 10:00 | P.PN ---
Subjective This is a pleasant 70-year-old male past medical history significant for obstructive sleep apnea wears CPAP, rheumatoid arthritis, irritable bowel sy ndrome, history of hypertension and hypotension, hyperlipidemia, lumbar pain, cervical rediculopathy, pain pump, neuro stimulator back, left total knee replacement. He denies seeing a curriculum and instruction director. However, did see Dr. Kearney in December 2020. We have been asked to see in consultation for bradycardia. Patient presents to the hospital on 06/22/21 for planned repair open lateral release and medial imbrication of left patella with Dr. Del Rosario, he is POD #2. Patient seen and examined at bedside, no acute distress. He denies symptoms of chest pain, shortness of breath, palpitations, lightheadedness, dizziness, syncope or presyncope. Telemetry tracings indicate sinus bradycardia, HR have improved to the 40s-50s, HR low 36, no further pauses noted. His carvedilol is still being held. Echocardiogram revealed EF 4550 percent, RV is mildly enlarged, mild mitral regurgitation, mild tricuspid regurgitation PHYSICAL EXAMINATION Blood pressure 111/69, heart rate 51, afebrile maintaining oxygen saturations on room air. CONSTITUTIONAL: No apparent distress. HEENT: Neck Supple. No JVD. CHEST EXAMINATION: Lungs are clear to auscultation. No chest wall tenderness is noted on palpation or with deep breathing. HEART EXAMINATION: Regular rate and rhythm. S1, S2 heard. No murmurs, gallops or rub. ABDOMEN: Soft, nontender. Positive bowel sounds. EXTREMITIES: no lower extremity edema and no calf tenderness. Left leg in cast. NEUROLOGIC EXAMINATION: Patient is awake, alert and oriented x3. ASSESSMENT Status post repair open lateral release and medial imbrication of left patella on 06/22/21 Sinus bradycardia History of hypertension, hypotensive this admission Obstructive sleep apnea Rheumatoid arthritis Irritable bowel syndrome PLAN Hold AV refugio blocking agents due to bradycardia Restart ACEI as tolerated We recommend 30 day event monitor to be placed prior to discharge. From a cardiology perspective, ok to discharge today with close follow up with Dr. Kearney in the office, patient with an appointment on 07/08/21. Nurse Practitioner note has been reviewed, I agree with a documented findings and plan of care. Patient was seen and examined. Objective - Vital Signs Vital signs: Vital Signs Temp 98.2 F 06/24/21 08:00 Pulse 51 L 06/24/21 08:00 Resp 16 06/24/21 08:00 BP 111/69 06/24/21 08:00 Pulse Ox 94 L 06/24/21 08:00 Intake & Output 06/23/21 06/24/21 06/24/21 18:59 06:59 18:59 Intake Total 200 Output Total 550 Balance -350 Intake: Oral 200 Output: Urine 550 Other: Voiding Method Urinal # Voids 5 2 # Bowel Movements 0 - Labs CBC & Chem 7: 06/23/21 05:27 Labs: Abnormal Lab Results - Last 24 Hours (Table) 06/23/21 Range/Units 05:27 TSH 0.409 L (0.465-4.680) mIU/L
--- NOTE | 2021-06-24 10:00 | ECHOF ---
Referral Reason:LV function MEASUREMENTS -------- HEIGHT: 165.1 cm WEIGHT: 117.5 kg BP: RVIDd: 3.8 cm (< 3.3) IVSd: 1.1 cm (0.6 - 1.1) LVIDd: 5.3 cm (3.9 - 5.3) LVPWd: 1.5 cm (0.6 - 1.1) IVSs: 1.5 cm LVIDs: 4.0 cm LVPWs: 1.6 cm LA Diam: 4.5 cm (2.7 - 3.8) Ao Diam: 4.0 cm (2.0 - 3.7) AV Cusp: 1.8 cm (1.5 - 2.6) MV E Matias: 0.70 m/s MV DecT: 186 ms MV A Matias: 0.41 m/s MV E/A Ratio: 1.73 RAP: 5.00 mmHg RVSP: 12.48 mmHg FINDINGS -------- Sinus rhythm. This was a techncally difficult study with suboptimal views, , Lumason utilized for enhancement of im ages. The left ventricular size is normal. Overall left ventricular systolic function is mildly impaired with, an EF between 45 - 50 %. The right ventricle is moderately enlarged. The left atrium is moderately dilated. The right atrial size is normal. 5.0mg OF Lumason UTLIZED: 2 OR MORE WALL SEGMENTS NOT VISUALIZED. The aortic valve was not well visualized. Mild mitral regurgitation is present. Mild tricuspid regurgitation present. Right ventricular systolic pressure is normal at < 35 mmHg. The pulmonic valve was not well visualized. There is no pericardial effusion. CONCLUSIONS -------- 1. This was a techncally difficult study with suboptimal views, , Lumason utilized for enhancement of images. 2. The left ventricular size is normal. 3. Overall left ventricular systolic function is mildly impaired with, an EF between 45 - 50 %. 4. The right ventricle is moderately enlarged. 5. The left atrium is moderately dilated. 6. The right atrial size is normal. 7. 5.0mg OF Lumason UTLIZED: 2 OR MORE WALL SEGMENTS NOT VISUALIZED. 8. The aortic valve was not well visualized. 9. Mild mitral regurgitation is present. 10. Mild tricuspid regurgitation present. 11. The pulmonic valve was not well visualized. 12. There is no pericardial effusion. MANGLE ROLLER: Concetta Lovelace RDCS
[2021-06-24] MEDS: DOXAZOSIN 4 MG TAB PO SCH (10:34)
[2021-06-24] MEDS: azaTHIOprine 50 MG TAB PO SCH (10:34)
--- NOTE | 2021-06-24 11:39 | P.DS ---
Providers Date of admission: 06/23/21 11:40 Expected date of discharge: 06/24/21 Attending physician: Shen Del Rosario Consults: 06/22/21 12:27 Consult Physician Routine Consulting Provider: Lorenzo Thomas Consult Reason/Comments: medical management Do you want consulting provider notified?: Yes 06/23/21 07:56 Consult Physician Routine Consulting Provider: Isaac Nieves Consult Reason/Comments: sinus yanick Do you want consulting provider notified?: Yes Primary care physician: Lorenzo Thomas - Discharge Diagnosis(es) (1) History of total left knee replacement Current Visit: Yes Status: Acute (2) Recurrent dislocation of left patella Current Visit: Yes Status: Acute Hospital Course: This is a 70-year-old male who developed recurrent dislocation of the left patella. The patient presented for evaluation as an outpatient. After discussion and consideration patient elects to proceed with open lateral release and medial imbrication left patella. The patient is seen preoperatively by Dr. Del Rosario. Patient is admitted to [facility] on 06/22/2021 for open lateral release and medial imbrication left patella. The procedures performed without complication or sequelae. The patient is doing well postoperatively. Labs and vital signs are stable on day of discharge. The patient was evaluated by cardiology during this admission and has been cleared for discharge with close outpatient follow-up. On day of discharge patient's cast is clean, dry and intact. Capillary refill is normal at <2 seconds. Neurovascular status to the left lower extremity is intact. Patient is discharged home in good condition. Please see med rec for accurate list of home medications. Plan - Discharge Summary Discharge Rx Participant: Yes New Discharge Prescriptions: New Aspirin [Adult Low Dose Aspirin EC] 81 mg PO BID 30 Days #60 tab Sennosides [Senokot] 2 tab PO DAILY PRN #60 tablet PRN Reason: Constipation Ondansetron Odt [Zofran Odt] 1 tab PO Q8HR PRN #10 tab PRN Reason: Nausea HYDROcodone/APAP 7.5-325MG [[place] 7.5-325] 1 - 2 tab PO Q6H PRN #32 tab PRN Reason: Pain Discontinued carvediloL [Coreg] 3.125 mg PO BID No Action Simvastatin [Zocor] 80 mg PO DAILY Ferrous Sulfate [Iron (65 MG Elemental)] 325 mg PO DAILY azaTHIOprine [Imuran] 50 mg PO DAILY Folic Acid 1 mg PO DAILY allopurinoL [Zyloprim] 300 mg PO DAILY Doxazosin Mesylate [Cardura] 4 mg PO BID Calcium Carbonate [Calcium] 600 mg PO DAILY #0 Certolizumab Pegol [Cimzia] 400 mg SQ Q28D Morphine Pain Pump 1 dose INTRATHECA CONTINUOUS Baclofen [Lioresal] 20 mg PO TID clonazePAM [KlonoPIN] 4 mg PO TID Ramipril [Altace] 10 mg PO DAILY Morphine Sulfate ER [Ms Contin] 60 mg PO Q12HR PRN PRN Reason: Pain Control HYDROcodone/APAP 10-325MG [[place] 10-325] 1 tab PO Q4-6H PRN PRN Reason: Pain Gabapentin [Neurontin] 300 mg PO TID Methotrexate/Pf [Reditrex 25 mg/ml Syringe] 25 mg SQ MO Discharge Medication List Doxazosin Mesylate [Cardura] 4 mg PO BID 10/14/15 [History] Ferrous Sulfate [Iron (65 MG Elemental)] 325 mg PO DAILY 10/14/15 [History] Folic Acid 1 mg PO DAILY 10/14/15 [History] Simvastatin [Zocor] 80 mg PO DAILY 10/14/15 [History] allopurinoL [Zyloprim] 300 mg PO DAILY 10/14/15 [History] azaTHIOprine [Imuran] 50 mg PO DAILY 10/14/15 [History] Calcium Carbonate [Calcium] 600 mg PO DAILY #0 12/05/18 [History] Certolizumab Pegol [Cimzia] 400 mg SQ Q28D 05/07/19 [History] Morphine Pain Pump 1 dose INTRATHECA CONTINUOUS 12/05/19 [History] Baclofen [Lioresal] 20 mg PO TID 02/11/20 [History] Gabapentin [Neurontin] 300 mg PO TID 02/11/20 [History] HYDROcodone/APAP 10-325MG [[place] 10-325] 1 tab PO Q4-6H PRN 02/11/20 [History] Morphine Sulfate ER [Ms Contin] 60 mg PO Q12HR PRN 02/11/20 [History] Ramipril [Altace] 10 mg PO DAILY 02/11/20 [History] clonazePAM [KlonoPIN] 4 mg PO TID 02/11/20 [History] Methotrexate/Pf [Reditrex 25 mg/ml Syringe] 25 mg SQ MO 06/21/21 [History] Aspirin [Adult Low Dose Aspirin EC] 81 mg PO BID 30 Days #60 tab 06/22/21 [Rx] HYDROcodone/APAP 7.5-325MG [[place] 7.5-325] 1 - 2 tab PO Q6H PRN #32 tab 06/22/21 [Rx] Ondansetron Odt [Zofran Odt] 1 tab PO Q8HR PRN #10 tab 06/22/21 [Rx] Sennosides [Senokot] 2 tab PO DAILY PRN #60 tablet 06/22/21 [Rx] Follow up Appointment(s)/Referral(s): Lorenzo Thomas MD [Primary Care Provider] - 1 Week Care,[facility] [NON-STAFF] - ([facility] will call you to schedule your home care visits. ) Radha Kearney MD [STAFF PHYSICIAN] - 3 Weeks Shen Del Rosario DO [Doctor of Osteopathic Medicine] - 07/07/21 2:25 pm Activity/Diet/Wound Care/Special Instructions: *Set up wheelchair van for discharge through [facility] - [phone]. Weightbearing as tolerated with a walker. Keep cast clean, dry and intact. Elevate for swelling. Aspirin 81mg BID to help prevent blood clots. Please follow up with [facility] and call with any questions or concerns, . Patient requires a bedside commode chair due to being room confined secondary to hard cast from groin to foot to prevent bending due to subluxation of the left knee with repair. Discharge Disposition: HOME WITH HOME HEALTH SERVICES
[2021-07-15] MEDS ORDERED: METHOTREXATE 25 MG/ML SQ SCH (12:00)
== END 2021-06-24 15:54 | disposition home health service (06) ==
LOC: OR 09:26 → 4SSUR 12:28 → OR 06-23 11:40 → 4SSUR 06-23 11:40
PROVIDERS: ADMIT Orthopaedic Surgery; ATTEND Orthopaedic Surgery
DX: M22.02 Recurrent dislocation of patella, left knee (principal); I97.191 Other postprocedural cardiac functional disturbances following other surgery; R00.1 Bradycardia, unspecified; I95.81 Postprocedural hypotension; Z96.652 Presence of left artificial knee joint; I08.1 Rheumatic disorders of both mitral and tricuspid valves; M10.9 Gout, unspecified; G47.33 Obstructive sleep apnea (adult) (pediatric); M06.9 Rheumatoid arthritis, unspecified; M54.12 Radiculopathy, cervical region; I10 Essential (primary) hypertension; E78.5 Hyperlipidemia, unspecified; M54.9 Dorsalgia, unspecified; T75.4XXS Electrocution, sequela; R25.1 Tremor, unspecified; W86.8XXS Exposure to other electric current, sequela; K58.9 Irritable bowel syndrome, unspecified; F17.290 Nicotine dependence, other tobacco product, uncomplicated; Z79.891 Long term (current) use of opiate analgesic; Z79.899 Other long term (current) drug therapy; Z87.828 Personal history of other (healed) physical injury and trauma; Z87.442 Personal history of urinary calculi; Z96.82 Presence of neurostimulator; Z97.8 Presence of other specified devices; Z98.890 Other specified postprocedural states; Z82.49 Family history of ischemic heart disease and other diseases of the circulatory system; Z81.1 Family history of alcohol abuse and dependence; Z82.3 Family history of stroke
CPT/HCPCS: 27425; 94660; 93005 ×2; 93270; 97116; 97530 ×2; 97161; 97535; 97165; 64447; 64999; 76942; 84439; 84443; 85025; 87635; G0378 ×2; C8929; J7500 ×2; J2250; J1100; J0690 ×3; J2405; J2001; J3010; J1170 ×2; J2795; J2704; Q9950; 93306

== ENCOUNTER 2021-07-14 15:12 | Inpatient (IN) | payer MEDICARE ==
--- NOTE | 2021-07-14 17:40 | P.HPOR ---
History of Present Illness H&P Date: 07/14/21 Chief Complaint: Septic arthritis left Knee This is a 70-year-old male with history of total left knee arthroplasty on 05/14/2019. The patient has been followed over the past couple of months for continued patellar dislocation. He had failed conservative outpatient managemen t and was taken to surgery on 06/22/2021 for open lateral release and medial imbrication of the left patella. The patient was placed in a knee immobilizer postoperatively. He did have a fall recently while trying to get dressed. He has been having dressing changes but the patient and his state that they have not change the dressing in several days. He rates his current pain 7/10. The patient is on methotrexate and Imuran. He has been on an oral antibiotic. He reports no fever or chills. 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 STEROID INJECTION KNEES. COLONOSCOPY Past Anesthesia/Blood Transfusion Reactions: No Reported Reaction Past Psychological History: No Psychological Hx Reported Smoking Status: Smoker, current status unknown Past Alcohol Use History: Occasional Past Drug Use History: Marijuana - Past Family History Mother Family Medical History: No Reported History Additional Family Medical History / Comment(s): of alcoholism Father Family Medical History: CVA/TIA, Myocardial Infarction ([place]) Medications and Allergies Home Medications Medication Instructions Recorded Confirmed Type Doxazosin Mesylate [Cardura] 4 mg PO BID 10/14/15 06/21/21 History Ferrous Sulfate [Iron (65 MG 325 mg PO DAILY 10/14/15 06/21/21 History Elemental)] Folic Acid 1 mg PO DAILY 10/14/15 06/21/21 History Simvastatin [Zocor] 80 mg PO DAILY 10/14/15 06/21/21 History allopurinoL [Zyloprim] 300 mg PO DAILY 10/14/15 06/21/21 History azaTHIOprine [Imuran] 50 mg PO DAILY 10/14/15 06/21/21 History Calcium Carbonate [Calcium] 600 mg PO DAILY #0 12/05/18 06/21/21 History Certolizumab Pegol [Cimzia] 400 mg SQ Q28D 05/07/19 06/21/21 History Morphine Pain Pump 1 dose INTRATHECA CONTINUOUS 12/05/19 06/21/21 History Baclofen [Lioresal] 20 mg PO TID 02/11/20 06/21/21 History Gabapentin [Neurontin] 300 mg PO TID 02/11/20 06/21/21 History HYDROcodone/APAP 10-325MG [[place] 1 tab PO Q4-6H PRN 02/11/20 06/21/21 History 10-325] Morphine Sulfate ER [Ms Contin] 60 mg PO Q12HR PRN 02/11/20 06/21/21 History Ramipril [Altace] 10 mg PO DAILY 02/11/20 06/21/21 History clonazePAM [KlonoPIN] 4 mg PO TID 02/11/20 06/21/21 History Methotrexate/Pf [Reditrex 25 mg/ml 25 mg SQ MO 06/21/21 06/21/21 History Syringe] Aspirin [Adult Low Dose Aspirin EC] 81 mg PO BID 30 Days #60 tab 06/22/21 Rx HYDROcodone/APAP 7.5-325MG [[place] 1 - 2 tab PO Q6H PRN #32 tab 06/22/21 Rx 7.5-325] Ondansetron Odt [Zofran Odt] 1 tab PO Q8HR PRN #10 tab 06/22/21 Rx Sennosides [Senokot] 2 tab PO DAILY PRN #60 tablet 06/22/21 Rx Allergies Allergy/AdvReac Type Severity Reaction Status Date / Time No Known Allergies Allergy Verified 07/14/21 16:12 Physical Examination This is a pleasant 70-year-old male in no acute distress. He is alert and oriented at this time. There is a very strong pungent odor, presumably from the knee, noted upon entry into the exam room. There is an opening at the proximal incision which is draining purulent material. There is minimal erythema. There is mild soft tissue swelling. The patient has full foot and ankle motion without difficulty or pain. Neurovascular status to the lower extremity is intact. The wound is packed with iodoform gauze and new dressing is applied today. Cultures were taken. Assessment and Plan (1) Septic arthritis of knee, left Status: Acute Code(s): M00.9 - PYOGENIC ARTHRITIS, UNSPECIFIED SNOMED Code(s): 127364552 (2) History of total left knee replacement Status: Acute Code(s): Z96.652 - PRESENCE OF LEFT ARTIFICIAL KNEE JOINT SNOMED Code(s): 2266318204097 (3) Recurrent dislocation of left patella Status: Acute Code(s): M22.02 - RECURRENT DISLOCATION OF PATELLA, LEFT KNEE SNOMED Code(s): 780304366 Plan: The clinical findings are discussed with the patient. It is recommended he be admitted to the [facility] for IV antibiotics and evaluation with infectious disease. He is to have daily packing and dressing changes by nursing staff. We will await evaluation with infectious disease and plan possible surgical debridement over the weekend. He will be started on vancomycin with pharmacy to dose and await infectious disease recommendations.
[2021-07-14] MEDS: SODIUM CHLORIDE 0.9% 500 ML 500 ML IV SCH (18:59)
[2021-07-14 19:00] LABS: Basophils # (A) 0.1 k/uL (0-0.2); Basophils % (A) 1 %; Eosinophils # (A) 0.3 k/uL (0-0.7); Eosinophils % (A) 4 %; HCT 34.2 % (39.0-53.0); HGB 11.1 gm/dL (13.0-17.5); Hypochromasia Slight; Lymphocytes # (A) 0.9 k/uL (1.0-4.8); Lymphocytes % (A) 14 %; MCH 32.9 pg (25.0-35.0); MCHC 32.4 g/dL (31.0-37.0); MCV 101.5 fL (80.0-100.0); Macrocytosis Slight; Mean Platelet Volume 7.5; Monocytes # (A) 0.5 k/uL (0-1.0); Monocytes % (A) 7 %; Neutrophils # (A) 4.6 k/uL (1.3-7.7); Neutrophils % (A) 72 %; Platelet Count 457 k/uL (150-450); Poikilocytosis Slight; RBC 3.37 m/uL (4.30-5.90); RDW 15.3 % (11.5-15.5); WBC 6.5 k/uL (3.8-10.6)
[2021-07-14] MEDS ORDERED: MORPHINE SULFATE 4 MG/ML SYRINGE IV PRN (19:16)
[2021-07-14] MEDS ORDERED: ACETAMINOPHEN TAB 325 MG TAB PO PRN (19:16)
[2021-07-14] MEDS ORDERED: ONDANSETRON 4 MG/2 ML VIAL IVP PRN (19:16)
[2021-07-14] MEDS ORDERED: NALOXONE 0.4 MG/ML 1 ML VIAL IV PRN (19:16)
[2021-07-14] MEDS ORDERED: cefTRIAXone IN SWFI 1,000 MG/10 ML SYRINGE IVP STA (19:18)
[2021-07-14] MEDS ORDERED: VANCOMYCIN IV PER PHARMACY 1 EACH MISC MISCELLANE PRN (19:18)
--- NOTE | 2021-07-14 19:19 | ED ---
General Adult HPI - General Chief complaint: Recheck/Abnormal Lab/Rx Stated complaint: Knee Problems Time Seen by Provider: 07/14/21 17:53 Source: patient Mode of arrival: wheelchair Limitations: no limitations - History of Present Illness Initial comments: 70-year-old male patient presents to the emergency department sent by his customer resource specialist for admission for left knee infection. Patient has previous left total knee arthroplasty performed a few years ago by Dr. Del Rosario. He had procedure on June 21 to secure his patella in place due to repeated patellar dislocations. Patient developed swelling, drainage, pain to the knee. Size customer resource specialist that he was found to have infection. They did send cultures. He denies any fever or chills. Denies nausea or vomiting. - Related Data Home Medications Medication Instructions Recorded Confirmed Doxazosin Mesylate [Cardura] 4 mg PO BID 10/14/15 07/14/21 Ferrous Sulfate [Iron (65 MG 325 mg PO DAILY 10/14/15 07/14/21 Elemental)] Folic Acid 1 mg PO DAILY 10/14/15 07/14/21 Simvastatin [Zocor] 80 mg PO DAILY 10/14/15 07/14/21 allopurinoL [Zyloprim] 300 mg PO DAILY 10/14/15 07/14/21 azaTHIOprine [Imuran] 50 mg PO TID 10/14/15 07/14/21 Calcium Carbonate [Calcium] 600 mg PO DAILY #0 12/05/18 07/14/21 Certolizumab Pegol [Cimzia] 400 mg SQ Q28D 05/07/19 07/14/21 Morphine Pain Pump 1 dose INTRATHECA CONTINUOUS 12/05/19 07/14/21 Baclofen [Lioresal] 20 mg PO TID 02/11/20 07/14/21 Gabapentin [Neurontin] 300 mg PO TID 02/11/20 07/14/21 Ramipril [Altace] 10 mg PO DAILY 02/11/20 07/14/21 clonazePAM [KlonoPIN] 4 mg PO TID PRN 02/11/20 07/14/21 Methotrexate/Pf [Reditrex 25 mg/ml 25 mg SQ MO 06/21/21 07/14/21 Syringe] Cephalexin [Keflex] 500 mg PO QID 07/14/21 07/14/21 rOPINIRole HCL [Requip] 4 mg PO HS 07/14/21 07/14/21 Previous Rx's Medication Instructions Recorded HYDROcodone/APAP 7.5-325MG [[place] 1 - 2 tab PO Q6H PRN #32 tab 06/22/21 7.5-325] Ondansetron Odt [Zofran Odt] 1 tab PO Q8HR PRN #10 tab 06/22/21 Allergies Allergy/AdvReac Type Severity Reaction Status Date / Time No Known Allergies Allergy Verified 07/14/21 19:56 Review of Systems ROS Statement: Those systems with pertinent positive or pertinent negative responses have been documented in the HPI. ROS Other: All systems not noted in ROS Statement are negative. 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 STEROID INJECTION KNEES. COLONOSCOPY Past Anesthesia/Blood Transfusion Reactions: No Reported Reaction Past Psychological History: No Psychological Hx Reported Smoking Status: Smoker, current status unknown Past Alcohol Use History: Occasional Past Drug Use History: Marijuana - Past Family History Mother Family Medical History: No Reported History Additional Family Medical History / Comment(s): of alcoholism Father Family Medical History: CVA/TIA, Myocardial Infarction ([place]) General Exam Limitations: no limitations General appearance: alert, in no apparent distress, other (This is a well- developed, well-nourished adult male in no acute distress.) Respiratory exam: Present: normal lung sounds bilaterally. Absent: respiratory distress, wheezes, rales, rhonchi, stridor Cardiovascular Exam: Present: regular rate, normal rhythm, normal heart sounds. Absent: systolic murmur, diastolic murmur, rubs, gallop, clicks GI/Abdominal exam: Present: soft, normal bowel sounds. Absent: distended, tenderness, guarding, rebound, rigid Extremities exam: Present: full ROM, normal capillary refill, other (Left knee swelling, erythema). Absent: tenderness, pedal edema, joint swelling, calf tenderness Neurological exam: Present: alert, oriented X3, CN II-XII intact Psychiatric exam: Present: normal affect, normal mood Skin exam: Present: warm, dry, intact, normal color. Absent: rash Course Vital Signs 07/14/21 07/14/21 16:12 19:00 Temperature 98.8 F Pulse Rate 71 59 L Respiratory 18 20 Rate Blood Pressure 90/59 101/68 O2 Sat by Pulse 97 97 Oximetry Medical Decision Making - Medical Decision Making 70-year-old male patient was sent in by his customer resource specialist for left knee infection after having a surgical procedure on 06/21/2021. Labs reviewed and were normal white blood cell count is 6.5. ESR 102. CRP is 6.6. Cultures were sent and with outpatient order. He was started on vancomycin given 1 dose of Rocephin. He'll be admitted to the hospital with consults to general medicine and infectious disease. He is agreeable with this plan. Case discussed with my attending Dr. Calderon. - Lab Data Result diagrams: 07/14/21 18:29 07/14/21 18:29 Lab Results 07/14/21 07/14/21 07/14/21 Range/Units 18:29 18:29 18:29 WBC 6.5 (3.8-10.6) k/uL RBC 3.37 L (4.30-5.90) m/uL Hgb 11.1 L (13.0-17.5) gm/dL Hct 34.2 L (39.0-53.0) % MCV 101.5 H (80.0-100.0) fL MCH 32.9 (25.0-35.0) pg MCHC 32.4 (31.0-37.0) g/dL RDW 15.3 (11.5-15.5) % Plt Count 457 H (150-450) k/uL MPV 7.5 Neutrophils % 72 % Lymphocytes % 14 % Monocytes % 7 % Eosinophils % 4 % Basophils % 1 % Neutrophils # 4.6 (1.3-7.7) k/uL Lymphocytes # 0.9 L (1.0-4.8) k/uL Monocytes # 0.5 (0-1.0) k/uL Eosinophils # 0.3 (0-0.7) k/uL Basophils # 0.1 (0-0.2) k/uL Hypochromasia Slight Poikilocytosis Slight Macrocytosis Slight ESR 102 H (0-15) mm/hr PT 10.7 (9.0-12.0) sec INR 1.0 (<1.2) APTT 28.9 (22.0-30.0) sec Sodium 136 L (137-145) mmol/L Potassium 4.4 (3.5-5.1) mmol/L Chloride 98 (98-107) mmol/L Carbon Dioxide 30 (22-30) mmol/L Anion Gap 8 mmol/L BUN 16 (9-20) mg/dL Creatinine 0.54 L (0.66-1.25) mg/dL Est GFR (CKD-EPI)AfAm >90 (>60 ml/min/1.73 sqM) Est GFR (CKD-EPI)NonAf >90 (>60 ml/min/1.73 sqM) Glucose 103 H (74-99) mg/dL Plasma Lactic Acid Giovanni (0.7-2.0) mmol/L Calcium 8.8 (8.4-10.2) mg/dL Total Bilirubin 0.6 (0.2-1.3) mg/dL AST 87 H (17-59) U/L ALT 82 H (4-49) U/L Alkaline Phosphatase 115 (38-126) U/L C-Reactive Protein 6.6 H (<1.0) mg/dL Total Protein 7.2 (6.3-8.2) g/dL Albumin 3.6 (3.5-5.0) g/dL 07/14/21 Range/Units 18:29 WBC (3.8-10.6) k/uL RBC (4.30-5.90) m/uL Hgb (13.0-17.5) gm/dL Hct (39.0-53.0) % MCV (80.0-100.0) fL MCH (25.0-35.0) pg MCHC (31.0-37.0) g/dL RDW (11.5-15.5) % Plt Count (150-450) k/uL MPV Neutrophils % % Lymphocytes % % Monocytes % % Eosinophils % % Basophils % % Neutrophils # (1.3-7.7) k/uL Lymphocytes # (1.0-4.8) k/uL Monocytes # (0-1.0) k/uL Eosinophils # (0-0.7) k/uL Basophils # (0-0.2) k/uL Hypochromasia Poikilocytosis Macrocytosis ESR (0-15) mm/hr PT (9.0-12.0) sec INR (<1.2) APTT (22.0-30.0) sec Sodium (137-145) mmol/L Potassium (3.5-5.1) mmol/L Chloride (98-107) mmol/L Carbon Dioxide (22-30) mmol/L Anion Gap mmol/L BUN (9-20) mg/dL Creatinine (0.66-1.25) mg/dL Est GFR (CKD-EPI)AfAm (>60 ml/min/1.73 sqM) Est GFR (CKD-EPI)NonAf (>60 ml/min/1.73 sqM) Glucose (74-99) mg/dL Plasma Lactic Acid Giovanni 1.2 (0.7-2.0) mmol/L Calcium (8.4-10.2) mg/dL Total Bilirubin (0.2-1.3) mg/dL AST (17-59) U/L ALT (4-49) U/L Alkaline Phosphatase (38-126) U/L C-Reactive Protein (<1.0) mg/dL Total Protein (6.3-8.2) g/dL Albumin (3.5-5.0) g/dL Disposition Clinical Impression: Infection of left knee Disposition: ADMITTED IP TO THIS [facility] Condition: Serious Decision to Admit Reason: Admit from EC Decision Date: 07/14/21 Decision Time: 19:19
[2021-07-14 19:28] LABS: Partial Thromboplastin Time 28.9 sec (22.0-30.0); Prothrombin Time 10.7 sec (9.0-12.0)
[2021-07-14] MEDS ORDERED: VANCOMYCIN 1,750 MG in SODIUM CHLORIDE 0.9% 500 ML 500 ML IVPB ONE (19:30)
[2021-07-14 19:40] LABS: ALT 82 U/L (4-49); AST 87 U/L (17-59); African American GFR (CKD) >90 (>60 ml/min/1.73 sqM); Albumin 3.6 g/dL (3.5-5.0); Alkaline Phosphatase 115 U/L (38-126); Anion Gap 8 mmol/L; Blood Urea Nitrogen 16 mg/dL (9-20); C Reactive Protein 6.6 mg/dL (<1.0); Calcium 8.8 mg/dL (8.4-10.2); Carbon Dioxide 30 mmol/L (22-30); Chloride 98 mmol/L (98-107); Glucose 103 mg/dL (74-99); Non-African American GFR(CKD) >90 (>60 ml/min/1.73 sqM); Sodium 136 mmol/L (137-145); Total Bilirubin 0.6 mg/dL (0.2-1.3); Total Protein 7.2 g/dL (6.3-8.2)
[2021-07-14 19:43] LABS: Potassium 4.4 mmol/L (3.5-5.1)
[2021-07-14 20:00] LABS: Erythrocyte Sedimentation Rate 102 mm/hr (0-15)
--- NOTE | 2021-07-15 08:53 | P.PN ---
Subjective Progress Note Date: 07/15/21 Principal diagnosis: Left knee infection This is a 70-year-old male with history of total left knee arthroplasty on 05/14/2019. The patient has been followed over the past couple of months for continued patellar dislocation. He had failed conservative outpatient management and was taken to surgery on 06/22/2021 for open lateral release and medial imbrication of the left patella. The patient was placed in a knee immobilizer postoperatively. He did have a fall recently while trying to get dressed. He has been having dressing changes but the patient and his state that they have not change the dressing in several days. He presented to the office yesterday for a follow up with Dr. Shen Del Rosario and was found to have a wound dehiscence with purulent drainage and odor. The patient was sent to the ER for admission for IV antibiotics and evaluation by infectious disease. The patient is on methotrexate and Imuran. He has been on an oral antibiotic. He reports no fever or chills. Today, the patient states his knee pain is worse, especially with weightbearing. No fever or chills since in the hospital. No new complaints. Outpatient cultures are pending. He is currently on Vancomycin and one dose of Rocephin yesterday. Objective - Vital Signs Vital signs: Vital Signs Temp 98.0 F 07/15/21 07:43 Pulse 66 07/15/21 07:43 Resp 16 07/15/21 07:43 BP 102/63 07/15/21 07:43 Pulse Ox 99 07/15/21 07:43 Intake & Output 07/14/21 07/15/21 07/15/21 18:59 06:59 18:59 Weight 113.398 kg 113.398 kg - Exam This is a pleasant 70-year-old male in no acute distress. He is alert and oriented x3 at this time. There is an opening at the proximal incision which is draining purulent material. Packing was not removed today but will be changed by nursing staff later. There is minimal erythema. Active serosanginous drainage coming from a few holes in the middle part of the incision. There is moderate soft tissue swelling to the knee and lower leg. The patient has full foot and ankle motion without difficulty or pain. Calf is soft and nontender. Neurovascular status to the lower extremity is intact. - Labs CBC & Chem 7: 07/14/21 18:29 11/24/21 18:29 Labs: Abnormal Lab Results - Last 24 Hours (Table) 07/14/21 07/14/21 Range/Units 18:29 18:29 RBC 3.37 L (4.30-5.90) m/uL Hgb 11.1 L (13.0-17.5) gm/dL Hct 34.2 L (39.0-53.0) % MCV 101.5 H (80.0-100.0) fL Plt Count 457 H (150-450) k/uL Lymphocytes # 0.9 L (1.0-4.8) k/uL ESR 102 H (0-15) mm/hr Sodium 136 L (137-145) mmol/L Creatinine 0.54 L (0.66-1.25) mg/dL Glucose 103 H (74-99) mg/dL AST 87 H (17-59) U/L ALT 82 H (4-49) U/L C-Reactive Protein 6.6 H (<1.0) mg/dL Assessment and Plan (1) Infection of left knee Current Visit: Yes Status: Acute Code(s): M00.9 - PYOGENIC ARTHRITIS, UNSPECIFIED SNOMED Code(s): 556895398 (2) History of total left knee replacement Current Visit: No Status: Acute Code(s): Z96.652 - PRESENCE OF LEFT ARTIFICIAL KNEE JOINT SNOMED Code(s): 3673778888021 (3) Hyperlipidemia Current Visit: No Status: Acute Code(s): E78.5 - HYPERLIPIDEMIA, UNSPECIFIED SNOMED Code(s): 62231870 (4) Hypertension Current Visit: No Status: Acute Code(s): I10 - ESSENTIAL (PRIMARY) HYPERTENSION SNOMED Code(s): 92146394 (5) Rheumatoid arthritis Current Visit: No Status: Acute Code(s): M06.9 - RHEUMATOID ARTHRITIS, UNSPECIFIED SNOMED Code(s): 67721527 Plan: The clinical findings were discussed with the patient. The case was discussed with Dr. Shen Del Rosario. We are awaiting infectious disease and culture results at this time. Continue vancomycin. The patient may need an I&D with possible removal of hardware depending on infectious disease recommendations. Continue pain control with [place] and Dilaudid as needed. We will continue to follow the patient closely and make further recommendations as needed.
[2021-07-15] MEDS ORDERED: VANCOMYCIN 1,750 MG in SODIUM CHLORIDE 0.9% 500 ML 500 ML IVPB SCH (09:00)
[2021-07-15] MEDS ORDERED: HYDROcodone/APAP 7.5-325MG 1 EACH TAB PO PRN (09:24)
[2021-07-15] MEDS ORDERED: clonazePAM 1 MG TAB PO PRN (12:11)
[2021-07-15] MEDS ORDERED: NON FORMULARY DRUG (Certolizumab Pegol [Cimzia] 400 MG/2 ML Syringekit) SQ SCH (12:15)
--- NOTE | 2021-07-15 12:21 | P.CONS ---
History of Present Illness - Reason for Consult Consult date: 07/15/21 Medical Management - Chief Complaint Left knee pain, drainage, and swelling - History of Present Illness This is a pleasant 70-year-old male who presents to the with complaints of left lower extremity pain and swelling as well as drainage and swelling around his left knee surgical site. Patient was sent for evaluation from his onboarding specialist. Patient had a total left knee completed in 2018 and per orthopedic notes patient has ongoing complications since. He was taken to surgery June 22 to secure his patella in place due to repeated patellar dislocations. Postoperative patient developed swelling, drainage and pain to the knee. Cultures were sent on 07/14 and are currently pending. 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 Surgical history includes hernia repair, total left knee, colonoscopy. Patient occasionally smokes cigars, ex-cigarette smoker from age [age], is using medical marijuana and has a card, occasional drinker. Vital signs show a blood pressure 1 2/63, heart rate 66, 98% on room air and he is afebrile. Labs show white blood count 6.5, hemoglobin 11.1, platelets 457, sodium 136, creatinine 0.54, glucose 13, AST 87, ALT 82, CRP 6.6. Covid PCR is not detected. Patient was admitted to the hospital and started on IV vancomycin with an infectious disease consultation, [place] for pain control. Patient to resume a 2 L bolus in the EC, blood pressure is on the lower side, we will hold doxazosin for now. REVIEW OF SYSTEMS: CONSTITUTIONAL: No fever, no malaise, no fatigue. HEENT: No recent visual problems or hearing problems. Denied any sore throat. CARDIOVASCULAR: No chest pain, orthopnea, PND, no palpitations, no syncope. PULMONARY: No shortness of breath, no cough, no hemoptysis. GASTROINTESTINAL: No diarrhea, no nausea, no vomiting, no abdominal pain. NEUROLOGICAL: No headaches, no weakness, no numbness. HEMATOLOGICAL: Denies any bleeding or petechiae. GENITOURINARY: Denies any burning micturition, frequency, or urgency. MUSCULOSKELETAL/RHEUMATOLOGICAL: Denies any joint pain, swelling, or any muscle pain. ENDOCRINE: Denies any polyuria or polydipsia. The rest of the 14-point review of systems is negative. PHYSICAL EXAMINATION: GENERAL: The patient is alert and oriented x3, not in any acute distress. Well developed, well nourished. HEENT: Pupils are round and equally reacting to light. EOMI. No scleral icterus. No conjunctival pallor. Normocephalic, atraumatic. No pharyngeal erythema. No thyromegaly. CARDIOVASCULAR: S1 and S2 present. No murmurs, rubs, or gallops. PULMONARY: Chest is clear to auscultation, no wheezing or crackles. ABDOMEN: Soft, nontender, nondistended, normoactive bowel sounds. No palpable organomegaly. MUSCULOSKELETAL: No joint swelling or deformity. EXTREMITIES: No cyanosis, clubbing. Left lower extremity 1+ pitting edema NEUROLOGICAL: Gross neurological examination did not reveal any focal deficits. SKIN: No rashes. Left knee wrapped in D[place]EN, defer assessment to surgical. Assessment and Plan Assessment Surgical site infection of left knee status post surgery on 06/22/2021 History of total left knee replacement in 2019 Left lower extremity edema s/t above Hypertension, Blood pressure on the lower side this admission Rheumatoid arthritis History of sleep apnea with CPAP Daily THC use History of nicotine dependence GI prophylaxis: protonix DVT Prophylaxis: Subcu heparin Plan Continue IV Vanco ID consultation Monitor blood pressure, hold doxazosin for now Labs in the morning Thank you for this consultation. 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 STEROID INJECTION KNEES. COLONOSCOPY Past Anesthesia/Blood Transfusion Reactions: No Reported Reaction Past Psychological History: No Psychological Hx Reported Smoking Status: Smoker, current status unknown Past Alcohol Use History: Occasional Past Drug Use History: Marijuana - Past Family History Mother Family Medical History: No Reported History Additional Family Medical History / Comment(s): of alcoholism Father Family Medical History: CVA/TIA, Myocardial Infarction ([place]) Medications and Allergies Home Medications Medication Instructions Recorded Confirmed Type Doxazosin Mesylate [Cardura] 4 mg PO BID 10/14/15 07/14/21 History Ferrous Sulfate [Iron (65 MG 325 mg PO DAILY 10/14/15 07/14/21 History Elemental)] Folic Acid 1 mg PO DAILY 10/14/15 07/14/21 History Simvastatin [Zocor] 80 mg PO DAILY 10/14/15 07/14/21 History allopurinoL [Zyloprim] 300 mg PO DAILY 10/14/15 07/14/21 History azaTHIOprine [Imuran] 50 mg PO TID 10/14/15 07/14/21 History Calcium Carbonate [Calcium] 600 mg PO DAILY #0 12/05/18 07/14/21 History Certolizumab Pegol [Cimzia] 400 mg SQ Q28D 05/07/19 07/14/21 History Morphine Pain Pump 1 dose INTRATHECA CONTINUOUS 12/05/19 07/14/21 History Baclofen [Lioresal] 20 mg PO TID 02/11/20 07/14/21 History Gabapentin [Neurontin] 300 mg PO TID 02/11/20 07/14/21 History Ramipril [Altace] 10 mg PO DAILY 02/11/20 07/14/21 History clonazePAM [KlonoPIN] 4 mg PO TID PRN 02/11/20 07/14/21 History Methotrexate/Pf [Reditrex 25 mg/ml 25 mg SQ MO 06/21/21 07/14/21 History Syringe] HYDROcodone/APAP 7.5-325MG [[place] 1 - 2 tab PO Q6H PRN #32 tab 06/22/21 07/14/21 Rx 7.5-325] Ondansetron Odt [Zofran Odt] 1 tab PO Q8HR PRN #10 tab 06/22/21 07/14/21 Rx Cephalexin [Keflex] 500 mg PO QID 07/14/21 07/14/21 History rOPINIRole HCL [Requip] 4 mg PO HS 07/14/21 07/14/21 History Allergies Allergy/AdvReac Type Severity Reaction Status Date / Time No Known Allergies Allergy Verified 07/14/21 19:56 Physical Exam Vitals: Vital Signs Temp Pulse Pulse Resp BP BP BP 07/15/21 07:43 98.0 F 66 16 102/63 07/15/21 03:30 98.3 F 54 L 16 109/62 07/15/21 02:27 55 L 07/15/21 00:18 98.7 F 55 L 18 99/62 07/14/21 23:32 98.1 F 66 20 101/64 07/14/21 19:00 59 L 20 101/68 07/14/21 16:12 98.8 F 71 18 90/59 Pulse Ox 07/15/21 07:43 99 07/15/21 03:30 98 07/15/21 02:27 07/15/21 00:18 97 07/14/21 23:32 97 07/14/21 19:00 97 07/14/21 16:12 97 Intake and Output 07/14/21 07/15/21 07/15/21 22:59 06:59 14:59 Intake Total 120 Balance 120 Intake: Oral 120 Other: Weight 113.398 kg Results CBC & Chem 7: 07/14/21 18:29 07/14/21 18:29 Labs: Abnormal Lab Results - Last 24 Hours (Table) 07/14/21 07/14/21 Range/Units 18:29 18:29 RBC 3.37 L (4.30-5.90) m/uL Hgb 11.1 L (13.0-17.5) gm/dL Hct 34.2 L (39.0-53.0) % MCV 101.5 H (80.0-100.0) fL Plt Count 457 H (150-450) k/uL Lymphocytes # 0.9 L (1.0-4.8) k/uL ESR 102 H (0-15) mm/hr Sodium 136 L (137-145) mmol/L Creatinine 0.54 L (0.66-1.25) mg/dL Glucose 103 H (74-99) mg/dL AST 87 H (17-59) U/L ALT 82 H (4-49) U/L C-Reactive Protein 6.6 H (<1.0) mg/dL Assessment and Plan Time with Patient: Greater than 30
[2021-07-15] MEDS: HYDROcodone/APAP 10-325MG 1 EACH TAB PO PRN (14:37)
[2021-07-15] MEDS: VANCOMYCIN 2,000 MG in SODIUM CHLORIDE 0.9% 500 ML 500 ML IVPB SCH ×2 (15:43→23:57)
[2021-07-15] MEDS: azaTHIOprine 50 MG TAB PO SCH ×2 (15:43→19:59)
[2021-07-15] MEDS: BACLOFEN 10 MG TAB PO SCH ×2 (15:43→19:59)
[2021-07-15] MEDS: GABAPENTIN 300 MG CAP PO SCH ×2 (15:43→19:59)
[2021-07-15] MEDS: HYDROmorphone 1 MG/ML 1 ML SYRINGE IVP PRN ×2 (15:55→19:59)
[2021-07-15] MEDS: rOPINIRole HCL 4 MG TABLET PO SCH (19:59)
[2021-07-15] MEDS: HEPARIN SODIUM,PORCINE/PF 5,000 UNIT/0.5 ML SYRINGE SQ SCH (20:00)
[2021-07-16] MEDS: HYDROmorphone 1 MG/ML 1 ML SYRINGE IVP PRN ×2 (00:02→21:43)
--- NOTE | 2021-07-16 00:21 | P.CONS ---
History of Present Illness - Reason for Consult Consult date: 07/15/21 left knee infection Requesting physician: Екатерина Rodriguez - Chief Complaint non healing wound to knee x weeks - History of Present Illness History of present illness : Patient is 72 male with a past medical history significant for left knee replacement few years ago in this patient who recently had noticed to have a patellar dislocation failed conservative therapy the patient was taken to the OR on June 22, 2021 in this patient status post imbrication of the left patella patient was subsequently placed in a knee immobilizer postoperatively patient mention however the hard cast was removed he was noticed to have a dehiscence of his surgical incision that apparently has been treated conservatively without any improvement, with persistent nonhealing foot wound patient also complaining of more pain to the left knee area describing to be more of an aching to sharp almost 7-8 out of 10 and worse with walking and weightbearing patient did have drainage from his incision denies high-grade fever low with the symptom the patient was sent to the ER on arrival to the ER the patient has been afebrile patient did have a normal white count with a sed rate of 102 heredia PCR was negative and CRP was 6.6 local cultures obtained which are currently pending patient has been started on vancomycin infectious was consulted for further management of antibiotic therapy Review of system: CONSTITUTIONAL: Positive for weakness denies high-grade fever. EYES: No complaint. ENT: No complaint. RESPIRATORY: No complaint. CARDIOVASCULAR: No complaint. GENITOURINARY: No complaint. GASTROINTESTINAL: No complaint. MUSCULOSKELETAL: As per history of present illness. INTEGUMENTARY: No complaint. PSYCHOLOGIC: No complaint. ENDOCRINE: No complaint. NEUROLOGIC: No complaint. Past medical history : Reviewed, documented below Past surgical history : Reviewed, documented below Social history: Reviewed, documented below Medications: Reviewed, as documented below EXAMINATION: Vital sigans= Reviewed and documented below GENERAL DESCRIPTION: Elderly male lying in bed, no distress. No tachypnea or accessory muscle of respiration use. HEENT: Shows Pallor , no scleral icterus. Oral mucous membrane is dry. NECK: Trachea central, no thyromegaly. LUNGS: Unlabored breathing. Clear to auscultation anteriorly. No wheeze or crackle. HEART: S1, S2, regular rate and rhythm. ABDOMEN: Soft, no tenderness , guarding or rigidity EXTREMITIES: Left knee wound at the upper and with the slough tissue the wound is deeper with surrounding swelling and redness. SKIN: No rash, no masses palpable. NEUROLOGICAL: The patient is awake, alert, oriented x3, mood and affect normal. LABS AND RADIOLOGY: Reviewed results see below Assessment : Patient with a nonhealing wound to left knee area in this patient with recent surgery for the patella dislocation with subsequent dehiscence of his surgical wound which seems to be deep surrounding swelling and redness patient not running any fever had not have elevated white count however clinic suspicious is high for underlying septic arthritis Plan: 1-patient will benefit from surgical I&D of this wound if at the time of surgery the wound was noticed to be superficial and not tracking below the fascia may benefit from just washout however if the wound is tracking down to the artificial knee the patient will need removal of the hardware and antibiotic spacer placement this was explained to the patient in layman term 2-vancomycin pharmacy to dose with a target trough of 15 while watching kidney function and Vanco trough closely. 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 STEROID INJECTION KNEES. COLONOSCOPY Past Anesthesia/Blood Transfusion Reactions: No Reported Reaction Past Psychological History: No Psychological Hx Reported Smoking Status: Smoker, current status unknown Past Alcohol Use History: Occasional Past Drug Use History: Marijuana - Past Family History Mother Family Medical History: No Reported History Additional Family Medical History / Comment(s): of alcoholism Father Family Medical History: CVA/TIA, Myocardial Infarction ([place]) Medications and Allergies Home Medications Medication Instructions Recorded Confirmed Type Doxazosin Mesylate [Cardura] 4 mg PO BID 10/14/15 07/14/21 History Ferrous Sulfate [Iron (65 MG 325 mg PO DAILY 10/14/15 07/14/21 History Elemental)] Folic Acid 1 mg PO DAILY 10/14/15 07/14/21 History Simvastatin [Zocor] 80 mg PO DAILY 10/14/15 07/14/21 History allopurinoL [Zyloprim] 300 mg PO DAILY 10/14/15 07/14/21 History azaTHIOprine [Imuran] 50 mg PO TID 10/14/15 07/14/21 History Calcium Carbonate [Calcium] 600 mg PO DAILY #0 12/05/18 07/14/21 History Certolizumab Pegol [Cimzia] 400 mg SQ Q28D 05/07/19 07/14/21 History Morphine Pain Pump 1 dose INTRATHECA CONTINUOUS 12/05/19 07/14/21 History Baclofen [Lioresal] 20 mg PO TID 02/11/20 07/14/21 History Gabapentin [Neurontin] 300 mg PO TID 02/11/20 07/14/21 History Ramipril [Altace] 10 mg PO DAILY 02/11/20 07/14/21 History clonazePAM [KlonoPIN] 4 mg PO TID PRN 02/11/20 07/14/21 History Methotrexate/Pf [Reditrex 25 mg/ml 25 mg SQ MO 06/21/21 07/14/21 History Syringe] HYDROcodone/APAP 7.5-325MG [[place] 1 - 2 tab PO Q6H PRN #32 tab 06/22/21 07/14/21 Rx 7.5-325] Ondansetron Odt [Zofran Odt] 1 tab PO Q8HR PRN #10 tab 06/22/21 07/14/21 Rx Cephalexin [Keflex] 500 mg PO QID 07/14/21 07/14/21 History rOPINIRole HCL [Requip] 4 mg PO HS 07/14/21 07/14/21 History Allergies Allergy/AdvReac Type Severity Reaction Status Date / Time No Known Allergies Allergy Verified 07/14/21 19:56 Physical Exam Vitals: Vital Signs Temp Pulse Pulse Resp BP BP BP 07/15/21 07:43 98.0 F 66 16 102/63 07/15/21 03:30 98.3 F 54 L 16 109/62 07/15/21 02:27 55 L 07/15/21 00:18 98.7 F 55 L 18 99/62 07/14/21 23:32 98.1 F 66 20 101/64 07/14/21 19:00 59 L 20 101/68 07/14/21 16:12 98.8 F 71 18 90/59 Pulse Ox 07/15/21 07:43 99 07/15/21 03:30 98 07/15/21 02:27 07/15/21 00:18 97 07/14/21 23:32 97 07/14/21 19:00 97 07/14/21 16:12 97 Intake and Output 07/14/21 07/15/21 07/15/21 22:59 06:59 14:59 Intake Total 120 Balance 120 Intake: Oral 120 Other: Weight 113.398 kg Results CBC & Chem 7: 07/14/21 18:29 07/14/21 18:29 Labs: Abnormal Lab Results - Last 24 Hours (Table) 07/14/21 07/14/21 Range/Units 18:29 18:29 RBC 3.37 L (4.30-5.90) m/uL Hgb 11.1 L (13.0-17.5) gm/dL Hct 34.2 L (39.0-53.0) % MCV 101.5 H (80.0-100.0) fL Plt Count 457 H (150-450) k/uL Lymphocytes # 0.9 L (1.0-4.8) k/uL ESR 102 H (0-15) mm/hr Sodium 136 L (137-145) mmol/L Creatinine 0.54 L (0.66-1.25) mg/dL Glucose 103 H (74-99) mg/dL AST 87 H (17-59) U/L ALT 82 H (4-49) U/L C-Reactive Protein 6.6 H (<1.0) mg/dL
[2021-07-16] MEDS: CEFEPIME 2 GM in SODIUM CHLORIDE 0.9% 100 ML IVPB SCH ×3 (01:00→16:15)
[2021-07-16] MEDS ORDERED: VANCOMYCIN TROUGH DUE 1 EACH MISC MISCELLANE ONE (07:00)
[2021-07-16] MEDS: BACLOFEN 10 MG TAB PO SCH ×3 (09:32→21:41)
[2021-07-16] MEDS: CALCIUM CARBONATE 500 MG CHEWABLE PO SCH (09:32)
[2021-07-16] MEDS: FERROUS SULFATE 325 MG TAB PO SCH (09:33)
[2021-07-16] MEDS: HYDROcodone/APAP 10-325MG 1 EACH TAB PO PRN (09:33)
[2021-07-16] MEDS: FOLIC ACID 1 MG TAB PO SCH (09:33)
[2021-07-16] MEDS: ATORVASTATIN 40 MG TAB PO SCH (09:33)
[2021-07-16] MEDS: allopurinoL 300 MG TAB PO SCH (09:33)
[2021-07-16] MEDS: PANTOPRAZOLE 40 MG TABLET PO SCH (09:33)
[2021-07-16] MEDS: GABAPENTIN 300 MG CAP PO SCH ×3 (09:33→21:42)
[2021-07-16] MEDS: VANCOMYCIN 2,000 MG in SODIUM CHLORIDE 0.9% 500 ML 500 ML IVPB SCH (09:34)
[2021-07-16] MEDS: HEPARIN SODIUM,PORCINE/PF 5,000 UNIT/0.5 ML SYRINGE SQ SCH ×2 (09:34→21:42)
[2021-07-16] MEDS: azaTHIOprine 50 MG TAB PO SCH ×4 (09:37→21:41)
[2021-07-16 10:18] LABS: Basophils # (A) 0.05 X 10*3/uL (0.00-0.10); Basophils % (A) 1.1 %; Eosinophils # (A) 0.22 X 10*3/uL (0.04-0.35); Eosinophils % (A) 4.7 %; HCT 29.2 % (39.6-50.0); HGB 8.8 g/dL (13.0-17.0); Lymphocytes # (A) 1.02 X 10*3/uL (0.90-5.00); Lymphocytes % (A) 21.6 %; MCH 31.5 pg (27.0-32.0); MCHC 30.1 g/dL (32.0-37.0); MCV 104.7 fL (80.0-97.0); Mean Platelet Volume 9.9 fL (9.5-12.2); Monocytes % (A) 12.7 %; Neutrophils % (A) 59.3 %; Platelet Count 385 X 10*3/uL (140-440); RBC 2.79 X 10*6/uL (4.40-5.60); RDW 15.4 % (11.5-14.5); WBC 4.72 X 10*3/uL (4.50-10.00)
--- NOTE | 2021-07-16 10:21 | US ---
EXAMINATION TYPE: US venous doppler duplex LE LT DATE OF EXAM: 07/16/2021 9:17 AM COMPARISON: US May 07, 2021 CLINICAL HISTORY: rule out DVT. Swelling and pain in calf/lower leg.. SIDE PERFORMED: Left TECHNIQUE: The lower extremity deep venous system is examined utilizing real time linear array sonog [place] with graded compression, doppler sonography and color-flow sonography. VESSELS IMAGED: Common Femoral Vein Deep Femoral Vein Greater Saphenous Vein * Femoral Vein Popliteal Vein Small Saphenous Vein * Proximal Calf Veins (* superficial vessels) Left Leg: Negative for DVT Grayscale, color doppler, spectral doppler imaging performed of the deep veins of the left lower extr emity. There is normal flow, compressibility, vascular waveforms. [id number] subcutaneous ambar a at the calf level noted towards end of study on current exam. IMPRESSION: No ultrasound evidence for acute DVT. No significant change from prior.
--- NOTE | 2021-07-16 10:37 | P.PN ---
Subjective Progress Note Date: 07/16/21 Principal diagnosis: Left knee infection This is a 70-year-old male with history of total left knee arthroplasty on 05/14/2019. The patient has been followed over the past couple of months for continued patellar dislocation. He had failed conservative outpatient management and was taken to surgery on 06/22/2021 for open lateral release and medial imbrication of the left patella. The patient was placed in a knee immobilizer postoperatively. He did have a fall recently while trying to get dressed. He has been having dressing changes but the patient and his state that they have not change the dressing in several days. He presented to the office yesterday for a follow up with Dr. Shen Del Rosario and was found to have a wound dehiscence with purulent drainage and odor. The patient was sent to the ER for admission for IV antibiotics and evaluation by infectious disease. The patient is on methotrexate and Imuran. He has been on an oral antibiotic. He reports no fever or chills. 07/15/2021: The patient states his knee pain is worse, especially with weightb earing. No fever or chills since in the hospital. No new complaints. Outpatient cultures are pending. He is currently on Vancomycin and one dose of Rocephin yesterday. 07/16/2021: He states his knee pain is more controlled today with [place] and Dilaudid. Nursing staff is changing his knee dressing daily with packing. No new complaints or issue reported today. The patient is continuing to have pain when walking on the leg. Infectious disease is recommending an I&D of the knee. Cultures reveal Gram negative bacilli. Objective - Vital Signs Vital signs: Vital Signs Temp 97.5 F L 07/16/21 07:28 Pulse 65 07/16/21 07:28 Resp 18 07/16/21 07:28 BP 115/68 07/16/21 07:28 Pulse Ox 100 07/16/21 07:28 Intake & Output 07/15/21 07/16/21 07/16/21 18:59 06:59 18:59 Intake Total 240 Balance 240 Intake: Oral 240 Other: # Voids 1 3 - Exam This is a pleasant 70-year-old male in no acute distress. He is alert and oriented x3 at this time. There is an opening at the proximal incision which is draining more purulent material today. Packing was not removed today but will be changed by nursing staff later. There is minimal erythema. Active serosanginous drainage coming from a few holes in the middle part of the incision. There is moderate soft tissue swelling to the knee and lower leg that appears a little worse today.. The patient has full foot and ankle motion without difficulty or pain. Calf is soft and mildly tender. Neurovascular status to the lower extremity is intact. - Labs CBC & Chem 7: 07/16/21 07:23 07/14/21 18:29 Labs: Abnormal Lab Results - Last 24 Hours (Table) 07/16/21 Range/Units 07:23 RBC 2.79 L (4.40-5.60) X 10*6/uL Hgb 8.8 L (13.0-17.0) g/dL Hct 29.2 L (39.6-50.0) % MCV 104.7 H (80.0-97.0) fL MCHC 30.1 L (32.0-37.0) g/dL RDW 15.4 H (11.5-14.5) % Microbiology - Last 24 Hours (Table) 07/15/21 14:20 Gram Stain - Preliminary Knee - Left Wound Culture - Preliminary 07/14/21 18:29 Blood Culture - Preliminary Blood No Growth after 24 hours 07/14/21 18:29 Blood Culture - Preliminary Blood No Growth after 24 hours Assessment and Plan (1) Infection of left knee Current Visit: Yes Status: Acute Code(s): M00.9 - PYOGENIC ARTHRITIS, UNSP ECIFIED SNOMED Code(s): 478948828 (2) History of total left knee replacement Current Visit: No Status: Acute Code(s): Z96.652 - PRESENCE OF LEFT ARTIFICIAL KNEE JOINT SNOMED Code(s): 6738980542117 (3) Hyperlipidemia Current Visit: No Status: Acute Code(s): E78.5 - HYPERLIPIDEMIA, UNSPECIFIED SNOMED Code(s): 19317956 (4) Hypertension Current Visit: No Status: Acute Code(s): I10 - ESSENTIAL (PRIMARY) HYPERTENSION SNOMED Code(s): 94783540 (5) Rheumatoid arthritis Current Visit: No Status: Acute Code(s): M06.9 - RHEUMATOID ARTHRITIS, UNSPECIFIED SNOMED Code(s): 02503656 Plan: The clinical findings were discussed with the patient. The case was discussed with Dr. Shen Del Rosario. An I&D of the left knee is scheduled for tomorrow morning with Dr. Shen Del Rosario. He will be NPO at midnight. Continue vancomycin per infectious disease. Continue dressing and packing changes at least daily depending on drainage. Continue pain control with [place] and Dilaudid as needed. We will continue to follow the patient closely and make further recommendations as needed.
[2021-07-16 10:39] LABS: African American GFR (CKD) 118.1 (60.0-200.0); Anion Gap 6.5 mmol/L (10.00-18.00); Blood Urea Nitrogen 10.8 mg/dL (9.0-27.0); Calcium 8.4 mg/dL (8.7-10.3); Carbon Dioxide 29.5 mmol/L (20.0-27.5); Non-African American GFR(CKD) 101.9 (60.0-200.0); Potassium 4.2 mmol/L (3.5-5.5)
--- NOTE | 2021-07-16 15:49 | P.PN ---
Subjective Progress Note Date: 07/16/21 Principal diagnosis: Surgical site infection of left knee status post surgery on 06/22/2021 History of total left knee replacement in 2019 70-year-old male who presents to the [facility] with complaints of left lower extremity pain and swelling as well as drainage and swelling around his left knee surgical site. Patient was sent for evaluation from his transition specialist. Patient had a total left knee completed in 2019 and per orthopedic notes patient has ongoing complications since. He was taken to surgery June 22 to secure his patella in place due to repeated patellar dislocations. Postoperative patient developed swelling, drainage and pain to the knee. Cultures were sent on 07/14 and are currently pending. 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 Surgical history includes hernia repair, total left knee, colonoscopy. Patient occasionally smokes cigars, ex-cigarette smoker from age [age], is using medical marijuana and has a card, occasional drinker. Vital signs show a blood pressure 1 2/63, heart rate 66, 98% on room air and he is afebrile. Labs show white blood count 6.5, hemoglobin 11.1, platelets 457, sodium 136, creatinine 0.54, glucose 13, AST 87, ALT 82, CRP 6.6. Covid PCR is not detected. Patient was admitted to the hospital and started on IV vancomycin with an infectious disease consultation, [place] for pain control. Patient to resume a 2 L bolus in the EC, blood pressure is on the lower side, we will hold doxazosin for now. Objective - Vital Signs Vital signs: Vital Signs Temp 97.5 F L 07/16/21 07:28 Pulse 65 07/16/21 07:28 Resp 18 07/16/21 07:28 BP 115/68 07/16/21 07:28 Pulse Ox 100 07/16/21 07:28 Intake & Output 07/15/21 07/16/21 07/16/21 18:59 06:59 18:59 Intake Total 240 Balance 240 Intake: Oral 240 Other: # Voids 1 3 - Exam GENERAL: The patient is alert and oriented x3, not in any acute distress. Well developed, well nourished. HEENT: Pupils are round and equally reacting to light. EOMI. No scleral icterus. No conjunctival pallor. Normocephalic, atraumatic. No pharyngeal erythema. No thyromegaly. CARDIOVASCULAR: S1 and S2 present. No murmurs, rubs, or gallops. PULMONARY: Chest is clear to auscultation, no wheezing or crackles. ABDOMEN: Soft, nontender, nondistended, normoactive bowel sounds. No palpable organomegaly. MUSCULOSKELETAL: No joint swelling or deformity. EXTREMITIES: No cyanosis, clubbing. Left lower extremity 1+ pitting edema NEUROLOGICAL: Gross neurological examination did not reveal any focal deficits. SKIN: No rashes. Left knee wrapped in DARREN, defer assessment to surgical. - Labs CBC & Chem 7: 07/16/21 07:23 07/16/21 07:23 Labs: Abnormal Lab Results - Last 24 Hours (Table) 07/16/21 07/16/21 Range/Units 07:23 07:23 RBC 2.79 L (4.40-5.60) X 10*6/uL Hgb 8.8 L (13.0-17.0) g/dL Hct 29.2 L (39.6-50.0) % MCV 104.7 H (80.0-97.0) fL MCHC 30.1 L (32.0-37.0) g/dL RDW 15.4 H (11.5-14.5) % Carbon Dioxide 29.5 H (20.0-27.5) mmol/L Anion Gap 6.50 L (10.00-18.00) mmol/L Calcium 8.4 L (8.7-10.3) mg/dL Microbiology - Last 24 Hours (Table) 07/15/21 14:20 Gram Stain - Preliminary Knee - Left Wound Culture - Preliminary 07/14/21 18:29 Blood Culture - Preliminary Blood No Growth after 24 hours 07/14/21 18:29 Blood Culture - Preliminary Blood No Growth after 24 hours Assessment and Plan Assessment: Surgical site infection of left knee status post surgery on 06/22/2021 History of total left knee replacement in 2019 Left lower extremity edema s/t above Hypertension, Blood pressure on the lower side this admission Rheumatoid arthritis History of sleep apnea with CPAP Daily THC use History of nicotine dependence GI prophylaxis: protonix DVT Prophylaxis: Subcu heparin Plan Continue IV Vanco ID consultation Monitor blood pressure, hold doxazosin for now Labs in the morning
[2021-07-16] MEDS: VANCOMYCIN 1,750 MG in SODIUM CHLORIDE 0.9% 500 ML 500 ML IVPB SCH (16:15)
--- NOTE | 2021-07-16 16:39 | PN ---
PROGRESS NOTE DATE OF SERVICE: 07/16/2021 REASON FOR FOLLOWUP: Left knee infection. INTERVAL HISTORY: The patient is afebrile. He is breathing comfortably. Still complaining of pain to the left knee. No chest pain, shortness of breath or cough. No abdominal pain or diarrhea. PHYSICAL EXAMINATION: Blood pressure 92/53 with a pulse of 58, temperature 97.8. He is 99% on 2 L nasal cannula. General description is an elderly male lying in bed in no distress. Respiratory system: Unlabored breathing, clear to auscultation anteriorly. Heart S1, S2. Regular rate and rhythm. Abdomen soft, no tenderness. Left knee is currently dressed. No obvious drainage on the dressing. LABS: Hemoglobin 8.9, white count 4.72. Platelets 102. Creatinine 0.6. Culture now showing Gram-negative bacilli. DIAGNOSTIC IMPRESSION AND PLAN: Patient with left knee infection concerning for possible deep infection, waiting for the I and D, hopefully tomorrow, and deep cultures. Initial culture now showing Gram- negative. Cefepime last time; that will be continued along with . Discharge antibiotic on the basis of deep cultures. Continue with supportive care. MMODL / IJN: [id number] /
[2021-07-16] MEDS: NON FORMULARY DRUG (Morphine Pain Pump 1 DOSE) MISCELLANE SCH (20:00)
[2021-07-16] MEDS: rOPINIRole HCL 4 MG TABLET PO SCH (21:40)
[2021-07-17] MEDS: CEFEPIME 2 GM in SODIUM CHLORIDE 0.9% 100 ML IVPB SCH ×4 (00:04→17:52)
[2021-07-17] MEDS: VANCOMYCIN 1,750 MG in SODIUM CHLORIDE 0.9% 500 ML 500 ML IVPB SCH ×2 (00:07→11:07)
[2021-07-17] MEDS: HYDROmorphone 1 MG/ML 1 ML SYRINGE IVP PRN ×5 (05:19→20:57)
[2021-07-17] MEDS ORDERED: PROPOFOL 10 MG/ML 20 ML VIAL IV ONE (07:54)
[2021-07-17] MEDS ORDERED: ONDANSETRON 4 MG/2 ML VIAL ONE (07:54)
[2021-07-17] MEDS ORDERED: fentaNYL (PF) 50 MCG/ML 2 ML AMP ONE (07:54)
[2021-07-17] MEDS ORDERED: LIDOCAINE 1% INJ 10MG/ML (20 ML MDV) ONE (07:54)
[2021-07-17] MEDS ORDERED: HYDROmorphone (PF) 1 MG/ML ONE (07:54)
[2021-07-17] MEDS ORDERED: LACTATED RINGERS 1,000 ML IV ONE ×2 (07:57)
[2021-07-17] MEDS ORDERED: ceFAZolin 3,000 MG in SODIUM CHLORIDE 0.9% IRRIGATIO 3,000 ML IRRIGATION ONE (08:18)
--- NOTE | 2021-07-17 09:02 | P.OP ---
Date of Procedure: 07/17/21 Preoperative Diagnosis: Infection left knee Postoperative Diagnosis: Infection left knee Procedure(s) Performed: Irrigation and debridement left knee Anesthesia: ROCIO Surgeon: Shen Del Rosario Estimated Blood Loss (ml): 50 Pathology: other (Cultures 2) Condition: stable Disposition: PACU Indications for Procedure: This is a 70-year-old gentleman that had a left total knee arthroplasty performed a number of years ago. Recently he started developing a recurrent dislocation of his patella. He is treated nonoperatively but failed nonoperative treatment. He had an open lateral release and medial retinaculum imbrication. He was seen approximately 2 weeks ago in the office and was doing quite well. His wound was healing well of infection at that time. He presented back to the office 2 days ago with an open draining foul-smelling wound. He was admitted to the hospital for IV antibiotics and scheduled for incision and drainage of his left knee. I discussed the surgical treatment options with him including a stage I revision with removal of implants and placement of antibiotic spacer. At this point, we will attempt a irrigation and debridement with retention of the components. He is aware that if this fails, we will have to perform a stage I revision. Informed consent was obtained. Operative Findings: The operative findings are consistent with an infection left total knee arthroplasty. Description of Procedure: Patient was seen in the preoperative area, consent was reviewed, the operative site was marked with a skin marker. Patient was then brought to the operating room and given a general anesthetic by the anesthesia department. His left knee was inspected and found to have significant drainage with an open area in the proximal aspect of his knee. His left knee was then prepped and draped in usual sterile fashion. A universal timeout was then performed which confirmed the patient's name, surgical site, ALLERGIES, and consent. The left knee was then surgically opened sharply with a knife large amount of purulent material was expressed. This was cultured 2. The area was then extensively debrided sharply with a knife as well as a Rominger down to the fascia. Next, pulsatile lavage was used to irrigate the wound with antibiotic solution. The wound was further inspected and found to communicate with the knee joint. Further irrigation was performed. The knee was then closed with 3-0 Vicryl followed by georgette for the skin over medium suction drain. Sterile dressing was applied and patient was transferred recovery room in stable condition. The patient's prognosis is guarded and we will continue to monitor his condition with the possibility of needing a stage I revision with removal of implants and placement of antibiotic spacer if the infection persists.
[2021-07-17] MEDS: fentaNYL (PF) 50 MCG/ML 2 ML AMP IVP ONE ×3 (09:09→09:23)
[2021-07-17] MEDS: ATORVASTATIN 40 MG TAB PO SCH (10:29)
[2021-07-17] MEDS: PANTOPRAZOLE 40 MG TABLET PO SCH (10:30)
[2021-07-17] MEDS: GABAPENTIN 300 MG CAP PO SCH ×3 (10:30→20:52)
[2021-07-17] MEDS: allopurinoL 300 MG TAB PO SCH (10:30)
[2021-07-17] MEDS: BACLOFEN 10 MG TAB PO SCH ×3 (10:30→20:51)
[2021-07-17] MEDS: azaTHIOprine 50 MG TAB PO SCH ×2 (10:30→16:06)
[2021-07-17] MEDS: CALCIUM CARBONATE 500 MG CHEWABLE PO SCH (10:31)
[2021-07-17] MEDS: FERROUS SULFATE 325 MG TAB PO SCH (10:31)
[2021-07-17] MEDS: HEPARIN SODIUM,PORCINE/PF 5,000 UNIT/0.5 ML SYRINGE SQ SCH ×2 (10:31→20:52)
[2021-07-17] MEDS: FOLIC ACID 1 MG TAB PO SCH (10:31)
[2021-07-17] MEDS: HYDROcodone/APAP 10-325MG 1 EACH TAB PO PRN ×4 (11:52→22:25)
[2021-07-17] MEDS ORDERED: VANCOMYCIN 1,750 MG in SODIUM CHLORIDE 0.9% 500 ML 500 ML IVPB SCH (19:00)
[2021-07-17] MEDS: NON FORMULARY DRUG (Morphine Pain Pump 1 DOSE) MISCELLANE SCH (20:00)
[2021-07-17] MEDS: rOPINIRole HCL 4 MG TABLET PO SCH (20:50)
[2021-07-18] MEDS: HYDROmorphone 1 MG/ML 1 ML SYRINGE IVP PRN ×6 (02:00→20:05)
[2021-07-18] MEDS: CEFEPIME 2 GM in SODIUM CHLORIDE 0.9% 100 ML IVPB SCH ×3 (02:03→19:42)
--- NOTE | 2021-07-18 02:16 | PN ---
PROGRESS NOTE DATE OF SERVICE: 07/17/2021 REASON FOR FOLLOWUP: Left knee infection. INTERVAL HISTORY: The patient was taken to the OR this morning in this patient who is status post I and D of the left knee. Infection was noticed to be tracking down to the knee, however, extensive arthroplasty was not done. Wound has been irrigated. Culture has been obtained. The patient tolerated the procedure ,complaining of significant pain to the knee area. No chest pain, shortness of breath or cough. No abdominal pain, no diarrhea. PHYSICAL EXAMINATION: Blood pressure 107/60 with a pulse of 63, temperature 98.1. He is 94% on room air. General description is an elderly male lying in bed in no distress. Respiratory system: Unlabored breathing, clear to auscultation anteriorly. Heart S1, S2. Regular rate and rhythm. Abdomen soft, no tenderness. LABS: Wound culture now showing Enterobacter. DIAGNOSTIC IMPRESSION AND PLAN: Patient with left knee septic arthritis status post I and D. Without removal of the hardware will not be able to clear up this infection, the only option will be for close antibiotic therapy the rest of his life and the patient agrees to it for now. The patient to continue cefepime. Vancomycin will be discontinued. He will need a PICC line ( ) IV antibiotics, continue supportive care. MMODL / IJN: [id number] /
[2021-07-18] MEDS: HYDROcodone/APAP 10-325MG 1 EACH TAB PO PRN ×4 (04:33→22:17)
[2021-07-18] MEDS: GABAPENTIN 300 MG CAP PO SCH ×3 (08:05→21:02)
[2021-07-18] MEDS: FERROUS SULFATE 325 MG TAB PO SCH (08:05)
[2021-07-18] MEDS: BACLOFEN 10 MG TAB PO SCH ×3 (08:05→21:03)
[2021-07-18] MEDS: ATORVASTATIN 40 MG TAB PO SCH (08:05)
[2021-07-18] MEDS: HEPARIN SODIUM,PORCINE/PF 5,000 UNIT/0.5 ML SYRINGE SQ SCH ×2 (08:05→20:05)
[2021-07-18] MEDS: CALCIUM CARBONATE 500 MG CHEWABLE PO SCH (08:05)
[2021-07-18] MEDS: FOLIC ACID 1 MG TAB PO SCH (08:05)
[2021-07-18] MEDS: allopurinoL 300 MG TAB PO SCH (08:05)
[2021-07-18] MEDS: PANTOPRAZOLE 40 MG TABLET PO SCH (08:06)
[2021-07-18] MEDS: azaTHIOprine 50 MG TAB PO SCH ×3 (08:13→21:02)
--- NOTE | 2021-07-18 09:03 | P.PN ---
Subjective Progress Note Date: 07/18/21 Principal diagnosis: Left knee infection This is a 70-year-old male with history of total left knee arthroplasty on 05/14/2019. The patient has been followed over the past couple of months for continued patellar dislocation. He had failed conservative outpatient management and was taken to surgery on 06/22/2021 for open lateral release and medial imbrication of the left patella. The patient was placed in a knee immobilizer postoperatively. He did have a fall recently while trying to get dressed. He has been having dressing changes but the patient and his state that they have not change the dressing in several days. He presented to the office yesterday for a follow up with Dr. Shen Del Rosario and was found to have a wound dehiscence with purulent drainage and odor. The patient was sent to the ER for admission for IV antibiotics and evaluation by infectious disease. The patient is on methotrexate and Imuran. He has been on an oral antibiotic. He reports no fever or chills. 07/15/2021: The patient states his knee pain is worse, especially with weightb earing. No fever or chills since in the hospital. No new complaints. Outpatient cultures are pending. He is currently on Vancomycin and one dose of Rocephin yesterday. 07/16/2021: He states his knee pain is more controlled today with [place] and Dilaudid. Nursing staff is changing his knee dressing daily with packing. No new complaints or issue reported today. The patient is continuing to have pain when walking on the leg. Infectious disease is recommending an I&D of the knee. Cultures reveal Gram negative bacilli. 07/18/2021: He is status post I&D of the left knee. Today is post op day 1. He states the pain medication is not enough and he only sleeps for a couple hours at a time due to the pain. Nursing staff and the patient states he has occasional sharp pains in the knee. Dilaudid helps the pain but wears off quickly. The [place] is not enough. Otherwise, the patient does have any other complaints. He is currently on cefepime. Objective - Vital Signs Vital signs: Vital Signs Temp 100 F H 07/18/21 08:00 Pulse 63 07/18/21 08:00 Resp 18 07/18/21 08:00 BP 113/73 07/18/21 08:00 Pulse Ox 93 L 07/18/21 08:00 Intake & Output 07/17/21 07/18/21 07/18/21 18:59 06:59 18:59 Intake Total 901 600 Output Total 2850 1350 Balance -1949 -750 Intake: IV 901 Intake, IV Titration 600 Amount Cefepime 2 gm In Sodium 100 Chloride 0.9% 100 ml @ 25 mls/hr IVPB Q8H RADAMES Rx#: [id number] Vancomycin 1,750 mg In 500 Sodium Chloride 0.9% 500 ml 500 ml @ 167 mls/hr IVPB Q8H RADAMES Rx#: [id number] Output: Drainage 50 Left Knee 50 Urine 2800 1300 Estimated Blood Loss 50 Other: Voiding Method Urinal # Voids 0 - Exam The patient does not appear in acute distress. Alert and orientated x3. Dressing is clean dry and intact. Hemovac drain in place. Calf is soft and nontender. Good foot and ankle motion without difficulty. Sensation and circulatory status is intact. - Labs CBC & Chem 7: 07/16/21 07:23 07/16/21 07:23 Labs: Microbiology - Last 24 Hours (Table) 07/17/21 08:16 Wound Culture - Preliminary Knee - Left 07/17/21 08:16 Anaerobic Culture - Preliminary Knee - Left 07/17/21 08:16 Wound Culture - Preliminary Knee - Left 07/17/21 08:16 Anaerobic Culture - Preliminary Knee - Left 07/14/21 18:29 Blood Culture - Preliminary Blood No Growth after 72 hours 07/14/21 18:29 Blood Culture - Preliminary Blood No Growth after 72 hours 07/15/21 14:20 Gram Stain - Final Knee - Left Wound Culture - Final Enterobacter cloacae Assessment and Plan (1) Infection of left knee Current Visit: Yes Status: Acute Code(s): M00.9 - PYOGENIC ARTHRITIS, UNSPECIFIED SNOMED Code(s): 877143821 (2) History of total left knee replacement Current Visit: No Status: Acute Code(s): Z96.652 - PRESENCE OF LEFT ARTIFICIAL KNEE JOINT SNOMED Code(s): 6535337961358 (3) Hyperlipidemia Current Visit: No Status: Acute Code(s): E78.5 - HYPERLIPIDEMIA, UNSPECIFIED SNOMED Code(s): 04445583 (4) Hypertension Current Visit: No Status: Acute Code(s): I10 - ESSENTIAL (PRIMARY) HYPERTENSION SNOMED Code(s): 50487817 (5) Rheumatoid arthritis Current Visit: No Status: Acute Code(s): M06.9 - RHEUMATOID ARTHRITIS, UNSP ECIFIED SNOMED Code(s): 29749494 Plan: 1. Continue pain control, will increase [place] 10 to 2 tabs q6, add Toradol x2 doses (due to Heparin) then Mobic BID, and will add Valium for muscle spasms. 2. Anticoagulation with Heparin 3. Continue ambulation 4. Antibiotics per infectious disease. He will need a PICC line. 4. Anticipate discharge home in the next few days.
[2021-07-18] MEDS: KETOROLAC 30 MG/ML 1 ML VIAL IVP SCH ×2 (09:34→15:19)
[2021-07-18] MEDS ORDERED: VANCOMYCIN TROUGH DUE 1 EACH MISC MISCELLANE ONE (18:00)
[2021-07-18] MEDS: NON FORMULARY DRUG (Morphine Pain Pump 1 DOSE) MISCELLANE SCH (19:43)
--- NOTE | 2021-07-18 20:32 | P.PN ---
Subjective Progress Note Date: 07/17/21 Principal diagnosis: Surgical site infection of left knee status post surgery on 06/22/2021 History of total left knee replacement in 2019 70-year-old male who presents to the [facility] with complaints of left lower extremity pain and swelling as well as drainage and swelling around his left knee surgical site. Patient was sent for evaluation from his holistic specialist. Patient had a total left knee completed in 2019 and per orthopedic notes patient has ongoing complications since. He was taken to surgery June 22 to secure his patella in place due to repeated patellar dislocations. Postoperative patient developed swelling, drainage and pain to the knee. Cultures were sent on 07/14 and are currently pending. 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 Surgical history includes hernia repair, total left knee, colonoscopy. Patient occasionally smokes cigars, ex-cigarette smoker from age [age], is using medical marijuana and has a card, occasional drinker. Vital signs show a blood pressure 1 2/63, heart rate 66, 98% on room air and he is afebrile. Labs show white blood count 6.5, hemoglobin 11.1, platelets 457, sodium 136, creatinine 0.54, glucose 13, AST 87, ALT 82, CRP 6.6. Covid PCR is not detected. Patient was admitted to the hospital and started on IV vancomycin with an infectious disease consultation, [place] for pain control. Patient to resume a 2 L bolus in the EC, blood pressure is on the lower side, we will hold doxazosin for now. 07/17/2021 Patient is seen and evaluated in room at bedside; reports improved pain at this time Patient was taken to or for infection left total knee arthroplasty; patient is status post irrigation and debridement left knee with removal of heart failure Remains on IV antibiotics with cefepime and vancomycin; ID recommending a PICC line to continue with antibiotic therapy Objective - Vital Signs Vital signs: Vital Signs Temp 99.1 F 07/17/21 09:03 Pulse 60 07/17/21 12:00 Resp 16 07/17/21 09:33 BP 126/67 07/17/21 12:00 Pulse Ox 99 07/17/21 12:00 Intake & Output 07/16/21 07/17/21 07/17/21 18:59 06:59 18:59 Intake Total 200 901 Output Total 300 600 850 Balance -300 -400 51 Intake: IV 901 Oral 200 Output: Urine 300 600 800 Estimated Blood Loss 50 Other: Voiding Method Urinal # Voids 0 - Exam GENERAL: The patient is alert and oriented x3, not in any acute distress. Well developed, well nourished. HEENT: Pupils are round and equally reacting to light. EOMI. No scleral icterus. No conjunctival pallor. Normocephalic, atraumatic. No pharyngeal erythema. No thyromegaly. CARDIOVASCULAR: S1 and S2 present. No murmurs, rubs, or gallops. PULMONARY: Chest is clear to auscultation, no wheezing or crackles. ABDOMEN: Soft, nontender, nondistended, normoactive bowel sounds. No palpable organomegaly. MUSCULOSKELETAL: No joint swelling or deformity. EXTREMITIES: No cyanosis, clubbing. Left lower extremity 1+ pitting edema NEUROLOGICAL: Gross neurological examination did not reveal any focal deficits. SKIN: No rashes. Left knee wrapped in DARREN, defer assessment to surgical. - Labs CBC & Chem 7: 07/16/21 07:23 07/16/21 07:23 Labs: Microbiology - Last 24 Hours (Table) 07/14/21 18:29 Blood Culture - Preliminary Blood No Growth after 48 hours 07/14/21 18:29 Blood Culture - Preliminary Blood No Growth after 48 hours 07/15/21 14:20 Gram Stain - Preliminary Knee - Left Wound Culture - Preliminary Gram Neg Bacilli Assessment and Plan Assessment: Surgical site infection of left knee status post surgery on 06/22/2021 History of total left knee replacement in 2019 Left lower extremity edema s/t above Hypertension, Blood pressure on the lower side this admission Rheumatoid arthritis History of sleep apnea with CPAP Daily THC use History of nicotine dependence GI prophylaxis: protonix DVT Prophylaxis: Subcu heparin Plan Continue IV Vanco ID consultation Monitor blood pressure, hold doxazosin for now Labs in the morning
--- NOTE | 2021-07-18 20:34 | P.PN ---
Subjective Progress Note Date: 07/18/21 Principal diagnosis: Surgical site infection of left knee status post surgery on 06/22/2021 History of total left knee replacement in 2019 70-year-old male who presents to the [facility] with complaints of left lower extremity pain and swelling as well as drainage and swelling around his left knee surgical site. Patient was sent for evaluation from his corporate communications specialist. Patient had a total left knee completed in 2019 and per orthopedic notes patient has ongoing complications since. He was taken to surgery June 22 to secure his patella in place due to repeated patellar dislocations. Postoperative patient developed swelling, drainage and pain to the knee. Cultures were sent on 07/14 and are currently pending. 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 Surgical history includes hernia repair, total left knee, colonoscopy. Patient occasionally smokes cigars, ex-cigarette smoker from age [age], is using medical marijuana and has a card, occasional drinker. Vital signs show a blood pressure 1 2/63, heart rate 66, 98% on room air and he is afebrile. Labs show white blood count 6.5, hemoglobin 11.1, platelets 457, sodium 136, creatinine 0.54, glucose 13, AST 87, ALT 82, CRP 6.6. Covid PCR is not detected. Patient was admitted to the hospital and started on IV vancomycin with an infectious disease consultation, Richmond for pain control. Patient to resume a 2 L bolus in the EC, blood pressure is on the lower side, we will hold doxazosin for now. 07/17/2021 Patient is seen and evaluated in room at bedside; reports improved pain at this time Patient was taken to or for infection left total knee arthroplasty; patient is status post irrigation and debridement left knee with removal of heart failure Remains on IV antibiotics with cefepime and vancomycin; ID recommending a PICC line to continue with antibiotic therapy 07/18/2021 Patient is seen and evaluated sitting up in bed; status post IND of the left knee; POD #1 Vital signs are reviewed temperature 100, pulse 63, respiration 18 and blood pressure 113/73 Patient has been complaining of uncontrolled pain; Ortho-Est recommending to increase Richmond up to 2 tablets every 6 hours along with Toradol and Mobic in a twice a day dosing; Viktoria is admitted for muscle spasms; patient remains on heparin for anticoagulation ID recommending PICC line placement for long-term IV antibiotic treatment with cefepime Objective - Vital Signs Vital signs: Vital Signs Temp 100 F H 07/18/21 08:00 Pulse 63 07/18/21 08:00 Resp 18 07/18/21 08:00 BP 113/73 07/18/21 08:00 Pulse Ox 93 L 07/18/21 08:00 Intake & Output 07/17/21 07/18/21 07/18/21 18:59 06:59 18:59 Intake Total 901 600 Output Total 2850 1350 Balance -1949 -750 Intake: IV 901 Intake, IV Titration 600 Amount Cefepime 2 gm In Sodium 100 Chloride 0.9% 100 ml @ 25 mls/hr IVPB Q8H [facility] Rx#: [id number] Vancomycin 1,750 mg In 500 Sodium Chloride 0.9% 500 ml 500 ml @ 167 mls/hr IVPB Q8H [facility] Rx#: [id number] Output: Drainage 50 Left Knee 50 Urine 2800 1300 Estimated Blood Loss 50 Other: Voiding Method Urinal # Voids 0 - Exam GENERAL: The patient is alert and oriented x3, not in any acute distress. Well d eveloped, well nourished. HEENT: Pupils are round and equally reacting to light. EOMI. No scleral icterus. No conjunctival pallor. Normocephalic, atraumatic. No pharyngeal erythema. No thyromegaly. CARDIOVASCULAR: S1 and S2 present. No murmurs, rubs, or gallops. PULMONARY: Chest is clear to auscultation, no wheezing or crackles. ABDOMEN: Soft, nontender, nondistended, normoactive bowel sounds. No palpable organomegaly. MUSCULOSKELETAL: No joint swelling or deformity. EXTREMITIES: No cyanosis, clubbing. Left lower extremity 1+ pitting edema NEUROLOGICAL: Gross neurological examination did not reveal any focal deficits. SKIN: No rashes. Left knee wrapped in DARREN, defer assessment to surgical. - Labs CBC & Chem 7: 07/16/21 07:23 07/16/21 07:23 Labs: Microbiology - Last 24 Hours (Table) 07/17/21 08:16 Wound Culture - Preliminary Knee - Left 07/17/21 08:16 Anaerobic Culture - Preliminary Knee - Left 07/17/21 08:16 Wound Culture - Preliminary Knee - Left 07/17/21 08:16 Anaerobic Culture - Preliminary Knee - Left 07/14/21 18:29 Blood Culture - Preliminary Blood No Growth after 72 hours 07/14/21 18:29 Blood Culture - Preliminary Blood No Growth after 72 hours 07/15/21 14:20 Gram Stain - Final Knee - Left Wound Culture - Final Enterobacter cloacae Assessment and Plan Assessment: Surgical site infection of left knee status post surgery on 06/22/2021 History of total left knee replacement in 2019 Left lower extremity edema s/t above Hypertension, Blood pressure on the lower side this admission Rheumatoid arthritis History of sleep apnea with CPAP Daily THC use History of nicotine dependence GI prophylaxis: protonix DVT Prophylaxis: Subcu heparin Plan Continue IV Vanco ID consultation Monitor blood pressure, hold doxazosin for now Labs in the morning
[2021-07-18] MEDS ORDERED: MELOXICAM 7.5 MG TAB PO SCH (21:00)
[2021-07-18] MEDS: MELOXICAM 7.5 MG TAB PO SCH (21:02)
[2021-07-18] MEDS: rOPINIRole HCL 4 MG TABLET PO SCH (21:02)
[2021-07-18] MEDS: diazePAM 5 MG TAB PO PRN (22:13)
--- NOTE | 2021-07-19 00:04 | PN ---
PROGRESS NOTE DATE OF SERVICE: 07/18/2021 REASON FOR FOLLOWUP: Left knee septic arthritis. INTERVAL HISTORY: The patient is afebrile. The patient is currently breathing comfortably. Denies having any chest pain, shortness of breath or cough. No abdominal pain. Pain to the left knee currently controlled. PHYSICAL EXAMINATION: Blood pressure 101/61 with a pulse of 75, temperature 97.8. He is 98% on room air. General description is an elderly male lying in bed in no distress. Respiratory system: Unlabored breathing, clear to auscultation anteriorly. Heart S1, S2. Regular rate and rhythm. Abdomen soft, no tenderness. Left knee is currently dressed. No obvious drainage on the dressing. LABS: Hemoglobin 8.9, white count 4.72. DIAGNOSTIC IMPRESSION AND PLAN: Patient with left knee septic arthritis. Culture with Enterobacter, status post washout. The patient did have multiple questions. Those have been answered. More likely will need a two-stage procedure if intent is to cure; otherwise, antibiotic therapy. Patient did not like to go to rehab. Continue cefepime. Plan is for at least 6 weeks of antibiotic. MMODL / IJN: [id number] /
[2021-07-19] MEDS: HYDROmorphone 1 MG/ML 1 ML SYRINGE IVP PRN ×4 (00:08→20:32)
[2021-07-19] MEDS: CEFEPIME 2 GM in SODIUM CHLORIDE 0.9% 100 ML IVPB SCH ×3 (02:57→20:33)
[2021-07-19] MEDS: HYDROcodone/APAP 10-325MG 1 EACH TAB PO PRN ×3 (05:36→18:00)
--- NOTE | 2021-07-19 08:25 | P.PN ---
Subjective Principal diagnosis: The patient is here secondary to left postop knee infection. The patient states pain but controlled by hydrocodone. No fever or chills. I did explain to him him the possible course of treatment. No voiding dif ficulties Objective - Vital Signs Vital signs: Vital Signs Temp 97.6 F 07/19/21 01:28 Pulse 47 L 07/19/21 01:28 Resp 16 07/19/21 01:28 BP 97/60 07/19/21 01:28 Pulse Ox 99 07/19/21 01:28 Intake & Output 07/18/21 07/19/21 07/19/21 18:59 06:59 18:59 Intake Total 240 Output Total 400 340 Balance -160 -340 Intake: Oral 240 Output: Drainage 40 Left Knee 40 Urine 400 300 Other: Voiding Method Urinal # Voids 2 - Constitutional General appearance: Present: cooperative. Absent: disheveled - EENT Eyes: Absent: abnormal pupil - Neck Neck: Absent: lymphadenopathy - Respiratory Respiratory: bilateral: CTA - Cardiovascular Rhythm: regular Heart sounds: normal: S1, S2 Abnormal Heart Sounds: Absent: S3 Gallop - Gastrointestinal General gastrointestinal: Present: soft. Absent: tenderness - Integumentary Integumentary: Absent: cellulitis - Labs CBC & Chem 7: 07/16/21 07:23 07/16/21 07:23 Labs: Microbiology - Last 24 Hours (Table) 07/17/21 08:16 Gram Stain - Final Knee - Left Wound Culture - Preliminary Gram Neg Bacilli 07/14/21 18:29 Blood Culture - Preliminary Blood No Growth after 96 hours 07/14/21 18:29 Blood Culture - Preliminary Blood No Growth after 96 hours 07/17/21 08:16 Gram Stain - Preliminary Knee - Left Wound Culture - Preliminary 07/17/21 08:16 Anaerobic Culture - Preliminary Knee - Left 07/17/21 08:16 Anaerobic Culture - Preliminary Knee - Left Assessment and Plan (1) Infection of left knee Current Visit: Yes Status: Acute Code(s): M00.9 - PYOGENIC ARTHRITIS, UNSPE CIFIED SNOMED Code(s): 800136823 (2) Kidney stones Current Visit: No Status: Acute Code(s): N20.0 - CALCULUS OF KIDNEY SNOMED Code(s): 97332837 (3) Sinus bradycardia Current Visit: No Status: Acute Code(s): R00.1 - BRADYCARDIA, UNSPECIFIED SNOMED Code(s): 44711471 Plan: Continue current regimen of treatment. Appreciate infectious disease input. Check CBC and CMP in a.m.
[2021-07-19] MEDS: HEPARIN SODIUM,PORCINE/PF 5,000 UNIT/0.5 ML SYRINGE SQ SCH ×2 (08:31→20:33)
[2021-07-19] MEDS: CALCIUM CARBONATE 500 MG CHEWABLE PO SCH (08:31)
[2021-07-19] MEDS: azaTHIOprine 50 MG TAB PO SCH ×3 (08:31→21:05)
[2021-07-19] MEDS: MELOXICAM 7.5 MG TAB PO SCH (08:32)
[2021-07-19] MEDS: GABAPENTIN 300 MG CAP PO SCH ×3 (08:33→21:05)
[2021-07-19] MEDS: PANTOPRAZOLE 40 MG TABLET PO SCH (08:33)
[2021-07-19] MEDS: FOLIC ACID 1 MG TAB PO SCH (08:33)
[2021-07-19] MEDS: BACLOFEN 10 MG TAB PO SCH ×3 (08:33→21:05)
[2021-07-19] MEDS: allopurinoL 300 MG TAB PO SCH (08:33)
[2021-07-19] MEDS: FERROUS SULFATE 325 MG TAB PO SCH (08:33)
[2021-07-19] MEDS: ATORVASTATIN 40 MG TAB PO SCH (08:33)
[2021-07-19 10:22] LABS: Basophils # (A) 0.05 X 10*3/uL (0.00-0.10); Eosinophils % (A) 5.9 %; HCT 25.4 % (39.6-50.0); HGB 7.8 g/dL (13.0-17.0); Lymphocytes # (A) 0.97 X 10*3/uL (0.90-5.00); Lymphocytes % (A) 18.9 %; MCH 31.8 pg (27.0-32.0); MCHC 30.7 g/dL (32.0-37.0); MCV 103.7 fL (80.0-97.0); Mean Platelet Volume 10.1 fL (9.5-12.2); Monocytes # (A) 0.77 X 10*3/uL (0.20-1.00); Neutrophils % (A) 58.6 %; Platelet Count 302 X 10*3/uL (140-440); RBC 2.45 X 10*6/uL (4.40-5.60); RDW 15.2 % (11.5-14.5); WBC 5.12 X 10*3/uL (4.50-10.00)
--- NOTE | 2021-07-19 10:34 | P.PN ---
Subjective Progress Note Date: 07/19/21 This is a 70-year-old male who is status post irrigation and debridement of the left knee. This is postoperative day #2 and patient is seen and evaluated at bedside today. Patient denies any new complaints today. Objective - Vital Signs Vital signs: Vital Signs Temp 97.7 F 07/19/21 08:00 Pulse 50 L 07/19/21 08:00 Resp 18 07/19/21 08:00 BP 114/72 07/19/21 08:00 Pulse Ox 99 07/19/21 01:28 Intake & Output 07/18/21 07/19/21 07/19/21 18:59 06:59 18:59 Intake Total 240 Output Total 400 340 40 Balance -160 -340 -40 Intake: Oral 240 Output: Drainage 40 40 Left Knee 40 40 Urine 400 300 Other: Voiding Method Urinal Urinal # Voids 2 - Exam On exam dressing is removed and georgette are intact. There is minimal drainage present. Drain is removed today. There is moderate swelling of the left lower e xtremity. Calf is soft and nontender to palpation. Sensation intact. Neurovascular status and circulatory status are intact. - Labs CBC & Chem 7: 07/19/21 05:18 07/16/21 07:23 Labs: Abnormal Lab Results - Last 24 Hours (Table) 07/19/21 Range/Units 05:18 RBC 2.45 L (4.40-5.60) X 10*6/uL Hgb 7.8 L (13.0-17.0) g/dL Hct 25.4 L (39.6-50.0) % MCV 103.7 H (80.0-97.0) fL MCHC 30.7 L (32.0-37.0) g/dL RDW 15.2 H (11.5-14.5) % Microbiology - Last 24 Hours (Table) 07/17/21 08:16 Gram Stain - Preliminary Knee - Left Wound Culture - Preliminary Gram Neg Bacilli 07/17/21 08:16 Gram Stain - Final Knee - Left Wound Culture - Preliminary Gram Neg Bacilli 07/14/21 18:29 Blood Culture - Preliminary Blood No Growth after 96 hours 07/14/21 18:29 Blood Culture - Preliminary Blood No Growth after 96 hours 07/17/21 08:16 Anaerobic Culture - Preliminary Knee - Left 07/17/21 08:16 Anaerobic Culture - Preliminary Knee - Left Assessment and Plan (1) Infection of left knee Current Visit: Yes Status: Acute Code(s): M00.9 - PYOGENIC ARTHRITIS, UNSPECIFIED SNOMED Code(s): 363192984 (2) History of total left knee replacement Current Visit: No Status: Acute Code(s): Z96.652 - PRESENCE OF LEFT A RTIFICIAL KNEE JOINT SNOMED Code(s): 9027501736647 Plan: 1. Daily dressing changes. 2. Antibiotics per infectious disease. Patient is awaiting PICC line placement. 3. Anticoagulation with heparin. 4. Anticipate discharge home or to rehab in the next 24-48 hours.
[2021-07-19 10:49] LABS: African American GFR (CKD) 118.1 (60.0-200.0); Anion Gap 6.9 mmol/L (10.00-18.00); BUN/Creat Ratio 25.83 Ratio (12.00-20.00); Blood Urea Nitrogen 15.5 mg/dL (9.0-27.0); Calcium 8.1 mg/dL (8.7-10.3); Carbon Dioxide 31.1 mmol/L (20.0-27.5); Non-African American GFR(CKD) 101.9 (60.0-200.0); Potassium 4.2 mmol/L (3.5-5.5)
[2021-07-19] MEDS: rOPINIRole HCL 4 MG TABLET PO SCH (20:33)
[2021-07-19] MEDS: NON FORMULARY DRUG (Morphine Pain Pump 1 DOSE) MISCELLANE SCH (20:33)
[2021-07-20] MEDS: HYDROcodone/APAP 10-325MG 1 EACH TAB PO PRN ×3 (01:31→19:52)
[2021-07-20] MEDS: diazePAM 5 MG TAB PO PRN (01:31)
[2021-07-20] MEDS: CEFEPIME 2 GM in SODIUM CHLORIDE 0.9% 100 ML IVPB SCH ×3 (03:36→18:04)
[2021-07-20] MEDS: HYDROmorphone 1 MG/ML 1 ML SYRINGE IVP PRN ×3 (05:01→22:43)
--- NOTE | 2021-07-20 06:24 | PN ---
PROGRESS NOTE DATE OF SERVICE: 07/19/2021 REASON FOR FOLLOWUP: Left knee septic arthritis. INTERVAL HISTORY: Patient is afebrile. The patient is breathing comfortably. The patient denies having any chest pain, shortness of breath, cough, no abdominal pain. Pain to the left knee is currently controlled. PHYSICAL EXAMINATION: Blood pressure 116/66, pulse of 74, temperature 98.3. She is 94% on room air. General description is an elderly male lying in bed in no distress. Respiratory system: Unlabored breathing, clear to auscultation anteriorly. Heart S1, S2. Regular rate and rhythm. Abdomen soft, no tenderness. Left knee is currently dressed. No obvious drainage on the dressing. DIAGNOSTIC IMPRESSION AND PLAN: Patient with left knee septic arthritis. Culture positive for Enterobacter. Patient is covered with cefepime and we will get a PICC line and plan for at least 6 weeks of IV antibiotic. Transition to possible antibiotic therapy versus plane two-stage procedure. He did have multiple questions, those were answered. MMODL / IJN: [id number] /
[2021-07-20 07:23] LABS: INR 1.1 (<1.2); Prothrombin Time 11.3 sec (9.0-12.0)
[2021-07-20] MEDS: PANTOPRAZOLE 40 MG TABLET PO SCH (07:30)
--- NOTE | 2021-07-20 08:24 | P.PN ---
Subjective Principal diagnosis: The patient is here secondary to left postop knee infection. The patient states pain but controlled by hydrocodone. No fever or chills. I did explain to him him the possible course of treatment. No voiding dif ficulties PICC line is scheduled for today. Pain control is nominal. Objective - Vital Signs Vital signs: Vital Signs Temp 98.4 F 07/20/21 01:41 Pulse 52 L 07/20/21 01:41 Resp 17 07/20/21 01:41 BP 118/71 07/20/21 01:41 Pulse Ox 94 L 07/20/21 01:41 Intake & Output 07/19/21 07/20/21 07/20/21 18:59 06:59 18:59 Intake Total 300 118 Output Total 240 325 Balance 60 -207 Intake: IV 100 Cefepime 2 gm In Sodium 100 Chloride 0.9% 100 ml @ 25 mls/hr IVPB Q8H [facility] Rx#: [id number] Oral 200 118 Output: Drainage 40 Left Knee 40 Urine 200 325 Other: Voiding Method Urinal Urinal - Constitutional General appearance: Present: average body habitus - EENT Eyes: Absent: abnormal pupil - Neck Neck: Absent: lymphadenopathy - Respiratory Respiratory: bilateral: CTA - Cardiovascular Rhythm: regular Heart sounds: normal: S1, S2 Abnormal Heart Sounds: Absent: S3 Gallop - Gastrointestinal General gastrointestinal: Present: soft. Absent: tenderness - Integumentary Integumentary: Absent: cellulitis - Psychiatric Psychiatric: Present: A&O x's 3 - Labs CBC & Chem 7: 07/19/21 05:18 07/19/21 05:18 Labs: Abnormal Lab Results - Last 24 Hours (Table) 07/19/21 07/19/21 Range/Units 05:18 05:18 RBC 2.45 L (4.40-5.60) X 10*6/uL Hgb 7.8 L (13.0-17.0) g/dL Hct 25.4 L (39.6-50.0) % MCV 103.7 H (80.0-97.0) fL MCHC 30.7 L (32.0-37.0) g/dL RDW 15.2 H (11.5-14.5) % Carbon Dioxide 31.1 H (20.0-27.5) mmol/L Anion Gap 6.90 L (10.00-18.00) mmol/L BUN/Creatinine Ratio 25.83 H (12.00-20.00) Ratio Calcium 8.1 L (8.7-10.3) mg/dL Microbiology - Last 24 Hours (Table) 07/14/21 18:29 Blood Culture - Preliminary Blood No Growth after 120 hours 07/14/21 18:29 Blood Culture - Preliminary Blood No Growth after 120 hours 07/17/21 08:16 Gram Stain - Preliminary Knee - Left Wound Culture - Preliminary Gram Neg Bacilli 07/17/21 08:16 Gram Stain - Final Knee - Left Wound Culture - Preliminary Gram Neg Bacilli Assessment and Plan (1) Infection of left knee Current Visit: Yes Status: Acute Code(s): M00.9 - PYOGENIC ARTHRITIS, UNSPECIFIED SNOMED Code(s): 089615689 (2) Kidney stones Current Visit: No Status: Acute Code(s): N20.0 - CALCULUS OF KIDNEY SNOMED Code(s): 73010369 (3) Sinus bradycardia Current Visit: No Status: Acute Code(s): R00.1 - BRADYCARDIA, UNSPECIFIED SNOMED Code(s): 00326490 Plan: Continue current regimen of treatment. Appreciate infectious disease input. Discharge planning for possible placement. Anticipate discharge in next 24-48 hours
[2021-07-20 09:15] VITALS: BMI 28.8
[2021-07-20 09:22] LABS: HCT 28.3 % (39.6-50.0); HGB 8.7 g/dL (13.0-17.0); MCH 31.5 pg (27.0-32.0); MCHC 30.7 g/dL (32.0-37.0); MCV 102.5 fL (80.0-97.0); Mean Platelet Volume 9.8 fL (9.5-12.2); Platelet Count 333 X 10*3/uL (140-440); RBC 2.76 X 10*6/uL (4.40-5.60); RDW 15.5 % (11.5-14.5); WBC 5.61 X 10*3/uL (4.50-10.00)
[2021-07-20] MEDS: BACLOFEN 10 MG TAB PO SCH ×3 (09:43→19:49)
[2021-07-20] MEDS: FERROUS SULFATE 325 MG TAB PO SCH (09:43)
[2021-07-20] MEDS: MELOXICAM 7.5 MG TAB PO SCH (09:43)
[2021-07-20] MEDS: azaTHIOprine 50 MG TAB PO SCH ×3 (09:44→19:50)
[2021-07-20] MEDS: allopurinoL 300 MG TAB PO SCH (09:44)
[2021-07-20] MEDS: GABAPENTIN 300 MG CAP PO SCH ×3 (09:44→19:50)
[2021-07-20] MEDS: FOLIC ACID 1 MG TAB PO SCH (09:44)
[2021-07-20] MEDS: ATORVASTATIN 40 MG TAB PO SCH (09:44)
[2021-07-20] MEDS: HEPARIN SODIUM,PORCINE/PF 5,000 UNIT/0.5 ML SYRINGE SQ SCH ×2 (09:45→19:50)
[2021-07-20] MEDS: CALCIUM CARBONATE 500 MG CHEWABLE PO SCH (09:52)
[2021-07-20] MEDS ORDERED: LIDOCAINE 1% INJ 10MG/ML (20 ML MDV) ONE (10:32)
[2021-07-20] MEDS ORDERED: LIDOCAINE 1% INJ 10MG/ML (20 ML MDV) SQ ONE (10:49)
[2021-07-20 12:48] LABS: ALT 34 U/L (10-49); AST 20 U/L (14-35); African American GFR (CKD) 117.7 (60.0-200.0); Albumin 2.9 g/dL (3.8-4.9); Albumin/Globulin Ratio 1.24 (1.60-3.17); Alkaline Phosphatase 68 U/L (41-126); BUN/Creat Ratio 23.64 Ratio (12.00-20.00); Blood Urea Nitrogen 14.3 mg/dL (9.0-27.0); Calcium 8.3 mg/dL (8.7-10.3); Carbon Dioxide 31.1 mmol/L (20.0-27.5); Chloride 102 mmol/L (96-109); Globulin 2.4 g/dL (1.6-3.3); Glucose 99 mg/dL (70-110); Non-African American GFR(CKD) 101.5 (60.0-200.0); Potassium 5.1 mmol/L (3.5-5.5); Sodium 141 mmol/L (135-145); Total Bilirubin <0.20 mg/dL (0.30-1.20); Total Protein 5.3 g/dL (6.2-8.2)
--- NOTE | 2021-07-20 13:07 | P.PN ---
Subjective Progress Note Date: 07/20/21 This is a 70-year-old male who is status post irrigation and debridement of the left knee. This is postoperative day #3 and patient is seen and evaluated at bedside today with Dr. Shen Del Rosario. Patient denies any new complaints today. Objective - Vital Signs Vital signs: Vital Signs Temp 98.4 F 07/20/21 08:00 Pulse 52 L 07/20/21 08:00 Resp 16 07/20/21 08:00 BP 125/76 07/20/21 08:00 Pulse Ox 96 07/20/21 08:00 Intake & Output 07/19/21 07/20/21 07/20/21 18:59 06:59 18:59 Intake Total 300 118 400 Output Total 240 325 Balance 60 -207 400 Weight 113.398 kg Intake: IV 100 Cefepime 2 gm In Sodium 100 Chloride 0.9% 100 ml @ 25 mls/hr IVPB Q8H [facility] Rx#: [id number] Oral 200 118 400 Output: Drainage 40 Left Knee 40 Urine 200 325 Other: Voiding Method Urinal Urinal Urinal - Exam On exam dressing is removed and georgette are intact. There is minimal drainage present. There is moderate swelling of the left lower extremity. Calf is soft and nontender to palpation. Sensation intact. Neurovascular status and circulatory status are intact. - Labs CBC & Chem 7: 07/20/21 06:23 07/20/21 06:23 Labs: Abnormal Lab Results - Last 24 Hours (Table) 07/20/21 07/20/21 Range/Units 06:23 06:23 RBC 2.76 L (4.40-5.60) X 10*6/uL Hgb 8.7 L (13.0-17.0) g/dL Hct 28.3 L (39.6-50.0) % MCV 102.5 H (80.0-97.0) fL MCHC 30.7 L (32.0-37.0) g/dL RDW 15.5 H (11.5-14.5) % Carbon Dioxide 31.1 H (20.0-27.5) mmol/L Anion Gap 7.60 L (10.00-18.00) mmol/L BUN/Creatinine Ratio 23.64 H (12.00-20.00) Ratio Calcium 8.3 L (8.7-10.3) mg/dL Total Bilirubin <0.20 L (0.30-1.20) mg/dL Total Protein 5.3 L (6.2-8.2) g/dL Albumin 2.9 L (3.8-4.9) g/dL Albumin/Globulin Ratio 1.24 L (1.60-3.17) g/dL Microbiology - Last 24 Hours (Table) 07/17/21 08:16 Anaerobic Culture - Preliminary Knee - Left 07/17/21 08:16 Gram Stain - Final Knee - Left Wound Culture - Final Enterobacter cloacae 07/17/21 08:16 Gram Stain - Final Knee - Left Wound Culture - Final Enterobacter cloacae 07/14/21 18:29 Blood Culture - Preliminary Blood No Growth after 120 hours 07/14/21 18:29 Blood Culture - Preliminary Blood No Growth after 120 hours Assessment and Plan (1) Infection of left knee Current Visit: Yes Status: Acute Code(s): M00.9 - PYOGENIC ARTHRITIS, UNSPECIFIED SNOMED Code(s): 801999174 (2) History of total left knee replacement Current Visit: No Status: Acute Code(s): Z96.652 - PRESENCE OF LEFT ARTIFICIAL KNEE JOINT SNOMED Code(s): 9580134853590 Plan: 1. Daily dressing changes. 2. Antibiotics per infectious disease. Patient has a PICC line placed. 3. Anticoagulation with heparin. 4. Anticipate discharge to [facility] in the next 24-48 hours.
[2021-07-20] MEDS: NON FORMULARY DRUG (Morphine Pain Pump 1 DOSE) MISCELLANE SCH (19:49)
[2021-07-20] MEDS: rOPINIRole HCL 4 MG TABLET PO SCH (19:50)
--- NOTE | 2021-07-20 22:47 | PN ---
PROGRESS NOTE DATE OF SERVICE: 07/20/2021 REASON FOR FOLLOWUP: Left knee septic arthritis secondary to enterobacter. INTERVAL HISTORY: The patient is afebrile. The patient is currently breathing comfortably. The patient denies having any chest pain, shortness of breath or cough. No abdominal pain or any worsening pain to the left knee area. PHYSICAL EXAMINATION: Blood pressure 119/72 with a pulse of 60, temperature 99. He is 97% on room air. General description is an elderly male lying in bed in no distress. Respiratory system: Unlabored breathing, clear to auscultation anteriorly. Heart S1, S2. Regular rate and rhythm. Abdomen soft, no tenderness. Left knee is currently dressed. No obvious drainage on the dressing. LABS: Hemoglobin 8.7, white count 5.61, creatinine 0.6. DIAGNOSTIC IMPRESSION AND PLAN: Patient with left knee septic arthritis secondary to Enterobacter cloacae, status post washout. Patient has a PICC line. Plan is for 6 weeks of IV cefepime oral antibiotic therapy versus a two-stage procedure. Multiple questions. Those were answered in layman's terms. MMODL / IJN: [id number] /
[2021-07-20] MEDS ORDERED: DOCUSATE 100 MG CAP PO PRN (23:25)
[2021-07-20] MEDS ORDERED: MAGNESIUM HYDROXIDE 2,400 MG/10 ML CUP PO PRN (23:26)
[2021-07-21] MEDS: CEFEPIME 2 GM in SODIUM CHLORIDE 0.9% 100 ML IVPB SCH ×2 (01:04→09:38)
--- NOTE | 2021-07-21 07:36 | P.DS ---
Providers Date of admission: 07/14/21 19:03 Expected date of discharge: 07/21/21 Attending physician: Shen Del Rosario Consults: 07/14/21 19:16 Consult Physician Routine Consulting Provider: Lorenzo Thomas Consult Reason/Comments: Medical Management Do you want consulting provider notified?: Yes 07/14/21 19:17 Consult Physician Routine Consulting Provider: Mahad Cornelius Consult Reason/Comments: LEft knee infection Do you want consulting provider notified?: Yes Primary care physician: Lorenzo Thomas - Discharge Diagnosis(es) (1) Septic arthritis of knee, left Current Visit: No Status: Acute (2) History of total left knee replacement Current Visit: No Status: Acute (3) Recurrent dislocation of left patella Current Visit: No Status: Acute Hospital Course: This is a 70-year-old male with history of total left knee arthroplasty on 05/14/2019. The patient has been followed over the past couple of months for continued patellar dislocation. He had failed conservative outpatient management and was taken to surgery on 06/22/2021 for open lateral release and medial imbrication of the left patella. The patient was placed in a knee immobilizer postoperatively. He did have a fall recently while trying to get dressed. He has been having dressing changes but the patient and his state that they have not change the dressing in several days. He rates his current pain 7/10. The patient is on methotrexate and Imuran. He has been on an oral antibiotic. He reports no fever or chills. The patient was admitted to [facility] on 07/14/2021. He was taken to surgery for surgical debridement of the knee. The patient is stable from an orthopedic standpoint. He has no new complaints or concerns today. We're planning discharge to inpatient rehab when cleared medically and bed available. Please see med rec for accurate list of home medications. Internal medicine to manage anticoagulation. Patient Condition at Discharge: Serious Plan - Discharge Summary Discharge Rx Participant: No New Discharge Prescriptions: New HYDROcodone/APAP 7.5-325MG [Sheridan 7.5-325] 1 - 2 tab PO Q6H PRN #32 tab PRN Reason: Pain Sennosides [Senokot] 2 tab PO DAILY PRN #60 tablet PRN Reason: Constipation No Action Simvastatin [Zocor] 80 mg PO DAILY Ferrous Sulfate [Iron (65 MG Elemental)] 325 mg PO DAILY azaTHIOprine [Imuran] 50 mg PO TID Folic Acid 1 mg PO DAILY allopurinoL [Zyloprim] 300 mg PO DAILY Doxazosin Mesylate [Cardura] 4 mg PO BID Calcium Carbonate [Calcium] 600 mg PO DAILY #0 Certolizumab Pegol [Cimzia] 400 mg SQ Q28D Morphine Pain Pump 1 dose INTRATHECA CONTINUOUS Baclofen [Lioresal] 20 mg PO TID clonazePAM [KlonoPIN] 4 mg PO TID PRN PRN Reason: Anxiety Ramipril [Altace] 10 mg PO DAILY Gabapentin [Neurontin] 300 mg PO TID Ondansetron Odt [Zofran Odt] 1 tab PO Q8HR PRN #10 tab PRN Reason: Nausea rOPINIRole HCL [Requip] 4 mg PO HS Methotrexate/Pf [Reditrex 25 mg/ml Syringe] 25 mg SQ MO HYDROcodone/APAP 7.5-325MG [Sheridan 7.5-325] 1 - 2 tab PO Q6H PRN #32 tab PRN Reason: Pain Cephalexin [Keflex] 500 mg PO QID Discharge Medication List Doxazosin Mesylate [Cardura] 4 mg PO BID 10/14/15 [History] Ferrous Sulfate [Iron (65 MG Elemental)] 325 mg PO DAILY 10/14/15 [History] Folic Acid 1 mg PO DAILY 10/14/15 [History] Simvastatin [Zocor] 80 mg PO DAILY 10/14/15 [History] allopurinoL [Zyloprim] 300 mg PO DAILY 10/14/15 [History] azaTHIOprine [Imuran] 50 mg PO TID 10/14/15 [History] Calcium Carbonate [Calcium] 600 mg PO DAILY #0 12/05/18 [History] Certolizumab Pegol [Cimzia] 400 mg SQ Q28D 05/07/19 [History] Morphine Pain Pump 1 dose INTRATHECA CONTINUOUS 12/05/19 [History] Baclofen [Lioresal] 20 mg PO TID 02/11/20 [History] Gabapentin [Neurontin] 300 mg PO TID 02/11/20 [History] Ramipril [Altace] 10 mg PO DAILY 02/11/20 [History] clonazePAM [KlonoPIN] 4 mg PO TID PRN 02/11/20 [History] Methotrexate/Pf [Reditrex 25 mg/ml Syringe] 25 mg SQ MO 06/21/21 [History] HYDROcodone/APAP 7.5-325MG [Sheridan 7.5-325] 1 - 2 tab PO Q6H PRN #32 tab 06/22/21 [Rx] Ondansetron Odt [Zofran Odt] 1 tab PO Q8HR PRN #10 tab 06/22/21 [Rx] Cephalexin [Keflex] 500 mg PO QID 07/14/21 [History] rOPINIRole HCL [Requip] 4 mg PO HS 07/14/21 [History] HYDROcodone/APAP 7.5-325MG [Sheridan 7.5-325] 1 - 2 tab PO Q6H PRN #32 tab 07/20/21 [Rx] Sennosides [Senokot] 2 tab PO DAILY PRN #60 tablet 07/20/21 [Rx] Follow up Appointment(s)/Referral(s): Lorenzo Thomas MD [Primary Care Provider] - 1-2 days Laura Daugherty [NON-STAFF] - Shen Del Rosario DO [Doctor of Osteopathic Medicine] - 10 Days Activity/Diet/Wound Care/Special Instructions: Daily dressing changes. Cover incision when showering. Weightbearing as tolerated with walker. Anticoagulation per internal medicine. Please follow up with [facility] and call with any questions or concerns, . Discharge Disposition: TRANSFER TO SNF/ECF
[2021-07-21] MEDS: PANTOPRAZOLE 40 MG TABLET PO SCH (07:40)
[2021-07-21 07:44] VITALS: BP 130/79; PULSE 70; RESP 16; TEMP 98.7
--- NOTE | 2021-07-21 08:10 | P.PN ---
Subjective Principal diagnosis: The patient is here secondary to left postop knee infection. The patient states pain but controlled by hydrocodone. No fever or chills. I did explain to him him the possible course of treatment. No voiding dif ficulties The patient status post PICC line. Anticipate discharge later today. Objective - Vital Signs Vital signs: Vital Signs Temp 98.7 F 07/21/21 07:42 Pulse 70 07/21/21 07:42 Resp 16 07/21/21 07:42 BP 130/79 07/21/21 07:42 Pulse Ox 94 L 07/21/21 07:42 Intake & Output 07/20/21 07/21/21 07/21/21 18:59 06:59 18:59 Intake Total 400 118 Output Total 600 Balance -200 118 Weight 113.398 kg Intake: Oral 400 118 Output: Urine 600 Other: Voiding Method Toilet Toilet Urinal Urinal # Voids 2 3 - Constitutional General appearance: Present: no acute distress - EENT Eyes: Absent: abnormal pupil - Neck Neck: Absent: lymphadenopathy - Respiratory Respiratory: bilateral: CTA - Cardiovascular Rhythm: regular Heart sounds: normal: S1, S2 Abnormal Heart Sounds: Absent: S3 Gallop - Gastrointestinal General gastrointestinal: Present: soft - Integumentary Integumentary: Absent: cellulitis - Psychiatric Psychiatric: Present: A&O x's 3 - Labs CBC & Chem 7: 07/20/21 06:23 07/20/21 06:23 Labs: Abnormal Lab Results - Last 24 Hours (Table) 07/20/21 07/20/21 Range/Units 06:23 06:23 RBC 2.76 L (4.40-5.60) X 10*6/uL Hgb 8.7 L (13.0-17.0) g/dL Hct 28.3 L (39.6-50.0) % MCV 102.5 H (80.0-97.0) fL MCHC 30.7 L (32.0-37.0) g/dL RDW 15.5 H (11.5-14.5) % Carbon Dioxide 31.1 H (20.0-27.5) mmol/L Anion Gap 7.60 L (10.00-18.00) mmol/L BUN/Creatinine Ratio 23.64 H (12.00-20.00) Ratio Calcium 8.3 L (8.7-10.3) mg/dL Total Bilirubin <0.20 L (0.30-1.20) mg/dL Total Protein 5.3 L (6.2-8.2) g/dL Albumin 2.9 L (3.8-4.9) g/dL Albumin/Globulin Ratio 1.24 L (1.60-3.17) g/dL Microbiology - Last 24 Hours (Table) 07/14/21 18:29 Blood Culture - Final Blood No Growth after 144 hours 07/14/21 18:29 Blood Culture - Final Blood No Growth after 144 hours 07/17/21 08:16 Anaerobic Culture - Preliminary Knee - Left 07/17/21 08:16 Gram Stain - Final Knee - Left Wound Culture - Final Enterobacter cloacae 07/17/21 08:16 Gram Stain - Final Knee - Left Wound Culture - Final Enterobacter cloacae Assessment and Plan (1) Infection of left knee Current Visit: Yes Status: Acute Code(s): M00.9 - PYOGENIC ARTHRITIS, UNSPECIFIED SNOMED Code(s): 473666094 (2) Kidney stones Current Visit: No Status: Acute Code(s): N20.0 - CALCULUS OF KIDNEY SNOMED Code(s): 99409215 (3) Sinus bradycardia Current Visit: No Status: Acute Code(s): R00.1 - BRADYCARDIA, UNSPECIFIED SNOMED Code(s): 39890442 Plan: Continue current regimen of treatment. Anticipate discharge today. We'll continue to follow.
[2021-07-21] MEDS: GABAPENTIN 300 MG CAP PO SCH (08:24)
[2021-07-21] MEDS: MELOXICAM 7.5 MG TAB PO SCH (08:24)
[2021-07-21] MEDS: FERROUS SULFATE 325 MG TAB PO SCH (08:24)
[2021-07-21] MEDS: FOLIC ACID 1 MG TAB PO SCH (08:24)
[2021-07-21] MEDS: BACLOFEN 10 MG TAB PO SCH (08:24)
[2021-07-21] MEDS: azaTHIOprine 50 MG TAB PO SCH (08:24)
[2021-07-21] MEDS: allopurinoL 300 MG TAB PO SCH (08:24)
[2021-07-21] MEDS: ATORVASTATIN 40 MG TAB PO SCH (08:24)
[2021-07-21] MEDS: HEPARIN SODIUM,PORCINE/PF 5,000 UNIT/0.5 ML SYRINGE SQ SCH (08:26)
[2021-07-21] MEDS: CALCIUM CARBONATE 500 MG CHEWABLE PO SCH (08:34)
--- NOTE | 2021-07-21 08:48 | CDI ---
Documentation Clarification Form Date: 07/21/2021 08:20:04 AM From: May Johansen RN CCDS Admit Date: 07/14/2021 07:03:00 PM Patient Name: Pal Rose Visit Number: [id number] Discharge Date: ATTENTION: The Clinical Documentation Specialists (CDI) and [facility] Coding Staff appreciate your assistance in clarifying documentation. Please respond to the clarification below the line at the bottom and electronically sign. The CDI & [facility] Coding staff will review the response and follow-up if needed. Please note: Queries are made part of the Legal Health Record. If you have any questions, please contact the author of this message via ITS. Dr. hSen Del Rosaroi A debridement is documented 07/17, Procedure Note. Additional clarification regarding the procedure is requested. History/Risk Factors: 70-year-old male presents to [facility] for from [employer] for a left knee infection. June 21, 2021 the patient had surgery to secure the patella in place, due to repeated patellar dislocations. The left knee developed swelling, drainage and pain to the knee. Positive for infection cultures were sent. Medical history: Left total knee performed a few years ago. HLD, HTN and RA. 07/14, ED Note. Clinical Indicators: 07/17: Procedure performed; Irrigation and debridement left knee. The left knee was surgically opened sharply with a knife large amount of purulent material was expressed. This was cultured x2. The area was then extensively debrided sharply with a knife as well as a Rominger down to the fascia. Treatment: 07/17 Irrigation and debridement left knee. Please clarify the type of procedure performed: [ ] Excisional debridement (the removal of necrotic, devitalized tissue or slough by means of cutting away of tissue) [ ] Non-excisional debridement (the removal of necrotic, devitalized tissue or slough by means of flushing, brushing, or washing. (Irrigation) [ ] Other; please specify [ ] Unable to determine Five elements required for accurate and compliant documentation of a debridement: Technique used (e.g., excisional, excised, cutting, brushing, jet lavage etc.) Instrument(s) used (e.g., scalpel, curette, etc.) Nature of the tissue removed (e.g., necrotic, devitalized tissues, non-viable tissue, etc.) Appearance and size of the wound (e.g., down to fresh bleeding tissue, 7cm x 10cm, etc.) Depth of the debridement* (e.g., skin, subcutaneous tissue, fascia, muscle, bone, etc.) (Template Last Revised: October 2020) Excisional debridement (the removal of necrotic, devitalized tissue or slough by means of cutting away of tissue) [facility]
[2021-07-21] MEDS: HYDROcodone/APAP 10-325MG 1 EACH TAB PO PRN (09:46)
--- NOTE | 2021-07-21 15:23 | PN ---
PROGRESS NOTE DATE OF SERVICE: 07/21/2021 REASON FOR FOLLOWUP: Left knee septic arthritis. INTERVAL HISTORY: The patient is afebrile. The patient is currently breathing comfortably. The patient denies having any chest pain, shortness of breath or cough. No abdominal pain or diarrhea. Pain to the left knee is currently controlled. PHYSICAL EXAMINATION: Blood pressure 130/79 with a pulse of 70, temperature of 98.7. He is 94% on room air. General description is an elderly male lying in bed in no distress. Respiratory system: Unlabored breathing, clear to auscultation anteriorly. Heart S1, S2. Regular rate and rhythm. Abdomen soft, no tenderness. Left foot is currently dressed. No obvious drainage on the dressing. LABS: Wound culture with Enterobacter cloacae. Blood culture negative. DIAGNOSTIC IMPRESSION AND PLAN: Patient with left knee septic arthritis, status post left knee washout. Culture with Enterobacter. Patient currently is on cefepime 2 grams q.12; to continue for at least 6 weeks. Patient did have a sed rate of 102 and a CRP of that will be monitored weekly. Close outpatient followup. MMODL / IJN: [id number] /
== END 2021-07-21 12:43 | DRG 464 ==
LOC: EC 15:12 → 4SSUR 19:03 → 6NMEDSUR 21:43
PROVIDERS: ADMIT Orthopaedic Surgery; ATTEND Orthopaedic Surgery
PROC: 0JBP0ZZ Excision of Left Lower Leg Subcutaneous Tissue and Fascia, Open Approach (ICD-10-PCS; principal; 2021-07-17 08:00)
PROC: 3E1U38Z Irrigation of Joints using Irrigating Substance, Percutaneous Approach (ICD-10-PCS; principal; 2021-07-17 08:00)
PROC: 05HY33Z Insertion of Infusion Device into Upper Vein, Percutaneous Approach (ICD-10-PCS; 2021-07-20)
DX: T84.54XA Infection and inflammatory reaction due to internal left knee prosthesis, initial encounter (principal); K51.90 Ulcerative colitis, unspecified, without complications; M00.9 Pyogenic arthritis, unspecified; E78.5 Hyperlipidemia, unspecified; F17.290 Nicotine dependence, other tobacco product, uncomplicated; I10 Essential (primary) hypertension; M06.9 Rheumatoid arthritis, unspecified; M22.02 Recurrent dislocation of patella, left knee; N20.0 Calculus of kidney; Y83.1 Surgical operation with implant of artificial internal device as the cause of abnormal reaction of the patient, or of later complication, without mention of misadventure at the time of the procedure; Z79.82 Long term (current) use of aspirin; Z79.899 Other long term (current) drug therapy; Z82.49 Family history of ischemic heart disease and other diseases of the circulatory system; Z87.442 Personal history of urinary calculi; Z20.822 Contact with and (suspected) exposure to COVID-19; Z98.890 Other specified postprocedural states; G47.30 Sleep apnea, unspecified; Z99.89 Dependence on other enabling machines and devices; Z81.1 Family history of alcohol abuse and dependence; Z82.3 Family history of stroke; Z96.82 Presence of neurostimulator; W86.8XXS Exposure to other electric current, sequela
CPT/HCPCS: 36415; 36573; 80048; 80053; 80202; 83605; 85025; 85027; 85610; 85652; 85730; 86140; 87040; 87070; 87075; 87077; 87186; 87205; 87635; 99284

== ENCOUNTER 2021-11-13 20:56 | Inpatient (IN) | payer MEDICARE ==
[2021-11-13] MEDS ORDERED: SODIUM CHLORIDE 0.9% 1,000 ML IV ONE (21:38)
[2021-11-13] MEDS ORDERED: SODIUM CHLORIDE 0.9% 1,000 ML IV STA ×2 (21:38→23:50)
[2021-11-13] MEDS ORDERED: ACETAMINOPHEN TAB 500 MG TAB PO STA (21:40)
[2021-11-13] MEDS ORDERED: IBUPROFEN 800 MG TAB PO STA (21:40)
--- NOTE | 2021-11-13 21:41 | ED ---
Altered Mental Status HPI - General Chief Complaint: Altered Mental Status Stated Complaint: Altered Mental Time Seen by Provider: 11/13/21 21:29 Source: patient, family, RN notes reviewed, old records reviewed Mode of arrival: ambulatory Limitations: no limitations - History of Present Illness Initial Comments: This is a 71-year-old male to the emergency department for evaluation today. Patient is altered mental status and fever. Patient presents with family currently infection coming today with fever and altered mental status. Patient himself without complaint but a poor strain secondary to mental state MD Complaint: altered mental status, confusion, weakness, other (Fever) -: hour(s) Severity: moderate Consistency of Symptoms: getting worse Context: history of similar presentation, recent fever Associated Symptoms: denies other symptoms - Related Data Home Medications Medication Instructions Recorded Confirmed Doxazosin Mesylate [Cardura] 4 mg PO BID 10/14/15 07/14/21 Folic Acid 1 mg PO DAILY 10/14/15 07/14/21 Simvastatin [Zocor] 80 mg PO DAILY 10/14/15 07/14/21 allopurinoL [Zyloprim] 300 mg PO DAILY 10/14/15 07/14/21 azaTHIOprine [Imuran] 50 mg PO TID 10/14/15 07/14/21 Calcium Carbonate [Calcium] 600 mg PO DAILY #0 12/05/18 07/14/21 Certolizumab Pegol [Cimzia] 400 mg SQ Q28D 05/07/19 07/14/21 Morphine Pain Pump 1 dose INTRATHECA CONTINUOUS 12/05/19 07/14/21 Baclofen [Lioresal] 20 mg PO TID 02/11/20 07/14/21 Ramipril [Altace] 10 mg PO DAILY 02/11/20 07/14/21 Methotrexate/Pf [Reditrex 25 mg/ml 25 mg SQ MO 06/21/21 07/14/21 Syringe] Cephalexin [Keflex] 500 mg PO QID 07/14/21 07/14/21 rOPINIRole HCL [Requip] 4 mg PO HS 07/14/21 07/14/21 Previous Rx's Medication Instructions Recorded HYDROcodone/APAP 7.5-325MG [Amelia 1 - 2 tab PO Q6H PRN #32 tab 06/22/21 7.5-325] Ondansetron Odt [Zofran ODT] 1 tab PO Q8HR PRN #10 tab 06/22/21 HYDROcodone/APAP 7.5-325MG [Amelia 1 - 2 tab PO Q6H PRN #32 tab 07/20/21 7.5-325] Sennosides [Senokot] 2 tab PO DAILY PRN #60 tablet 07/20/21 Cefepime [Maxipime] 2 gm IVPB Q8H each 07/21/21 Docusate [Colace] 100 mg PO DAILY PRN cap 07/21/21 Ferrous Sulfate [Iron (65 MG 325 mg PO DAILY tab 07/21/21 Elemental)] Gabapentin [Neurontin] 300 mg PO TID #9 cap 07/21/21 Magnesium Hydroxide [Milk of 1,200 mg PO QID PRN ml 07/21/21 Magnesia Concentrate] Meloxicam [Mobic] 15 mg PO DAILY #0 tab 07/21/21 Pantoprazole [Protonix] 40 mg PO AC-BRKFST tab 07/21/21 clonazePAM [KlonoPIN] 4 mg PO TID PRN #18 tab 07/21/21 Allergies Allergy/AdvReac Type Severity Reaction Status Date / Time No Known Allergies Allergy Verified 11/13/21 21:16 Review of Systems ROS Statement: Those systems with pertinent positive or pertinent negative responses have been documented in the HPI. ROS Other: All systems not noted in ROS Statement are negative. 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 STEROID INJECTION KNEES. COLONOSCOPY Past Anesthesia/Blood Transfusion Reactions: No Reported Reaction Past Psychological History: No Psychological Hx Reported Smoking Status: Smoker, current status unknown Past Alcohol Use History: Occasional Past Drug Use History: Marijuana - Past Family History Mother Family Medical History: No Reported History Additional Family Medical History / Comment(s): of alcoholism Father Family Medical History: CVA/TIA, Myocardial Infarction (CO) General Exam Limitations: altered mental status General appearance: alert, in no apparent distress Head exam: Present: atraumatic, normocephalic, normal inspection Eye exam: Present: normal appearance, PERRL, EOMI. Absent: scleral icterus, conjunctival injection, periorbital swelling ENT exam: Present: normal exam, mucous membranes dry Neck exam: Present: normal inspection. Absent: tenderness, meningismus, ly mphadenopathy Respiratory exam: Present: normal lung sounds bilaterally. Absent: respiratory distress, wheezes, rales, rhonchi, stridor Cardiovascular Exam: Present: normal rhythm, tachycardia, normal heart sounds. Absent: systolic murmur, diastolic murmur, rubs, gallop, clicks GI/Abdominal exam: Present: soft, normal bowel sounds. Absent: distended, tenderness, guarding, rebound, rigid Extremities exam: Present: normal inspection, full ROM, normal capillary refill. Absent: tenderness, pedal edema, joint swelling, calf tenderness Back exam: Present: normal inspection Neurological exam: Present: alert, oriented X3, CN II-XII intact Psychiatric exam: Present: normal affect, normal mood Skin exam: Present: warm, dry, intact, normal color. Absent: rash Course Vital Signs 11/13/21 11/13/21 11/13/21 21:10 22:49 23:43 Temperature 103.1 F H 101.2 F H 99.3 F Pulse Rate 111 H 87 77 Respiratory 22 18 20 Rate Blood Pressure 123/67 94/55 82/48 O2 Sat by Pulse 97 95 95 Oximetry - Reevaluation(s) Reevaluation #1: 11/14/21 00:26 Medical record is reviewed Reevaluation #2: 11/14/21 00:26 Patient informed of results here in the emergency department Reevaluation #3: 11/14/21 00:26 Patient is showing labile blood pressure, sepsis Patient given IV bolus based on his idealbodyweight Antibiotics are changed 11/14/21 00:26 patient ruled out for other cause of infection aside from Left knee - Consultations Consultation #1: Spoke with admitting physicians,[facility] who agrees to admit this patient Procedures - Sepsis Sepsis Focused Exam #1 Time Sepsis Criteria Met: 00:32 Sepsis Focused Exam Date: 11/14/21 Sepsis Focused Exam Time: 03:00 Sepsis Focused Exam Complete: Yes Vital Signs & RN Notes Reviewed: Yes Capillary Refill: < 2 Seconds: Fingers, Toes Peripheral Pulses: Normal: Radial (R), Radial (L), Posterior Tibialis (R), Posterior Tibialis (L), Dorsalis Pedis (R), Dorsalis Pedis (L) Skin Color: Normal for Patient Respiratory Exam: normal lung sounds Cardiovascular Exam: regular rate Medical Decision Making - Medical Decision Making 71 male presents today for evaluation of recurrent left knee infection cellulitis fever altered mental status rule out bacteremia placed on IV antibiotics. - Lab Data Result diagrams: 11/13/21 22:03 11/13/21 22:30 Lab Results 11/13/21 11/13/21 11/13/21 Range/Units 22:03 22:03 22:03 WBC 16.2 H (3.8-10.6) k/uL RBC 4.27 L (4.30-5.90) m/uL Hgb 14.0 (13.0-17.5) gm/dL Hct 42.7 (39.0-53.0) % MCV 100.0 (80.0-100.0) fL MCH 32.7 (25.0-35.0) pg MCHC 32.7 (31.0-37.0) g/dL RDW 18.4 H (11.5-15.5) % Plt Count 303 (150-450) k/uL MPV 7.7 Neutrophils % 93 % Lymphocytes % 2 % Monocytes % 4 % Eosinophils % 0 % Basophils % 0 % Neutrophils # 15.1 H (1.3-7.7) k/uL Lymphocytes # 0.3 L (1.0-4.8) k/uL Monocytes # 0.7 (0-1.0) k/uL Eosinophils # 0.0 (0-0.7) k/uL Basophils # 0.0 (0-0.2) k/uL Anisocytosis Slight Macrocytosis Slight PT 12.4 H (9.0-12.0) sec INR 1.2 H (<1.2) APTT 27.6 (22.0-30.0) sec Sodium (137-145) mmol/L Potassium (3.5-5.1) mmol/L Chloride (98-107) mmol/L Carbon Dioxide (22-30) mmol/L Anion Gap mmol/L BUN (9-20) mg/dL Creatinine (0.66-1.25) mg/dL Est GFR (CKD-EPI)AfAm (>60 ml/min/1.73 sqM) Est GFR (CKD-EPI)NonAf (>60 ml/min/1.73 sqM) Glucose (74-99) mg/dL Plasma Lactic Acid Giovanni (0.7-2.0) mmol/L Calcium (8.4-10.2) mg/dL Total Bilirubin (0.2-1.3) mg/dL AST (17-59) U/L ALT (4-49) U/L Alkaline Phosphatase (38-126) U/L Ammonia <9 (<30) umol/L Lactate Dehydrogenase (313-618) U/L Troponin I (0.000-0.034) ng/mL C-Reactive Protein (<1.0) mg/dL Total Protein (6.3-8.2) g/dL Albumin (3.5-5.0) g/dL Urine Color Urine Appearance (Clear) Urine pH (5.0-8.0) Ur Specific Nada (1.001-1.035) Urine Protein (Negative) Urine Glucose (UA) (Negative) Urine Ketones (Negative) Urine Blood (Negative) Urine Nitrite (Negative) Urine Bilirubin (Negative) Urine Urobilinogen (<2.0) mg/dL Ur Leukocyte Esterase (Negative) Urine RBC (0-5) /hpf Urine WBC (0-5) /hpf Ur Squamous Epith Cells (0-4) /hpf Hyaline Casts (0-2) /lpf Urine Mucus (None) /hpf Urine Opiates Screen (NotDetected) Ur Oxycodone Screen (NotDetected) Urine Methadone Screen (NotDetected) Ur Propoxyphene Screen (NotDetected) Ur Barbiturates Screen (NotDetected) U Tricyclic Antidepress (NotDetected) Ur Phencyclidine Scrn (NotDetected) Ur Amphetamines Screen (NotDetected) U Methamphetamines Scrn (NotDetected) U Benzodiazepines Scrn (NotDetected) Urine Cocaine Screen (NotDetected) U Marijuana (THC) Screen (NotDetected) Serum Alcohol mg/dL 03/26/22 03/26/22 03/26/22 Range/Units 22:03 22:30 22:30 WBC (3.8-10.6) k/uL RBC (4.30-5.90) m/uL Hgb (13.0-17.5) gm/dL Hct (39.0-53.0) % MCV (80.0-100.0) fL MCH (25.0-35.0) pg MCHC (31.0-37.0) g/dL RDW (11.5-15.5) % Plt Count (150-450) k/uL MPV Neutrophils % % Lymphocytes % % Monocytes % % Eosinophils % % Basophils % % Neutrophils # (1.3-7.7) k/uL Lymphocytes # (1.0-4.8) k/uL Monocytes # (0-1.0) k/uL Eosinophils # (0-0.7) k/uL Basophils # (0-0.2) k/uL Anisocytosis Macrocytosis PT (9.0-12.0) sec INR (<1.2) APTT (22.0-30.0) sec Sodium 132 L (137-145) mmol/L Potassium 4.0 (3.5-5.1) mmol/L Chloride 99 (98-107) mmol/L Carbon Dioxide 27 (22-30) mmol/L Anion Gap 6 mmol/L BUN 12 (9-20) mg/dL Creatinine 0.68 (0.66-1.25) mg/dL Est GFR (CKD-EPI)AfAm >90 (>60 ml/min/1.73 sqM) Est GFR (CKD-EPI)NonAf >90 (>60 ml/min/1.73 sqM) Glucose 118 H (74-99) mg/dL Plasma Lactic Acid Giovanni 1.6 (0.7-2.0) mmol/L Calcium 7.7 L (8.4-10.2) mg/dL Total Bilirubin 0.5 (0.2-1.3) mg/dL AST 26 (17-59) U/L ALT 21 (4-49) U/L Alkaline Phosphatase 54 (38-126) U/L Ammonia (<30) umol/L Lactate Dehydrogenase 403 (313-618) U/L Troponin I (0.000-0.034) ng/mL C-Reactive Protein 2.4 H (<1.0) mg/dL Total Protein 6.0 L (6.3-8.2) g/dL Albumin 3.2 L (3.5-5.0) g/dL Urine Color Yellow Urine Appearance Clear (Clear) Urine pH 5.5 (5.0-8.0) Ur Specific Nada 1.019 (1.001-1.035) Urine Protein Trace H (Negative) Urine Glucose (UA) Negative (Negative) Urine Ketones Trace H (Negative) Urine Blood Trace H (Negative) Urine Nitrite Negative (Negative) Urine Bilirubin Negative (Negative) Urine Urobilinogen <2.0 (<2.0) mg/dL Ur Leukocyte Esterase Trace H (Negative) Urine RBC 2 (0-5) /hpf Urine WBC 1 (0-5) /hpf Ur Squamous Epith Cells <1 (0-4) /hpf Hyaline Casts 1 (0-2) /lpf Urine Mucus Few H (None) /hpf Urine Opiates Screen Detected H (NotDetected) Ur Oxycodone Screen Not Detected (NotDetected) Urine Methadone Screen Not Detected (NotDetected) Ur Propoxyphene Screen Not Detected (NotDetected) Ur Barbiturates Screen Not Detected (NotDetected) U Tricyclic Antidepress Not Detected (NotDetected) Ur Phencyclidine Scrn Not Detected (NotDetected) Ur Amphetamines Screen Not Detected (NotDetected) U Methamphetamines Scrn Not Detected (NotDetected) U Benzodiazepines Scrn Not Detected (NotDetected) Urine Cocaine Screen Not Detected (NotDetected) U Marijuana (THC) Screen Detected H (NotDetected) Serum Alcohol <10 mg/dL 11/13/21 Range/Units 22:30 WBC (3.8-10.6) k/uL RBC (4.30-5.90) m/uL Hgb (13.0-17.5) gm/dL Hct (39.0-53.0) % MCV (80.0-100.0) fL MCH (25.0-35.0) pg MCHC (31.0-37.0) g/dL RDW (11.5-15.5) % Plt Count (150-450) k/uL MPV Neutrophils % % Lymphocytes % % Monocytes % % Eosinophils % % Basophils % % Neutrophils # (1.3-7.7) k/uL Lymphocytes # (1.0-4.8) k/uL Monocytes # (0-1.0) k/uL Eosinophils # (0-0.7) k/uL Basophils # (0-0.2) k/uL Anisocytosis Macrocytosis PT (9.0-12.0) sec INR (<1.2) APTT (22.0-30.0) sec Sodium (137-145) mmol/L Potassium (3.5-5.1) mmol/L Chloride (98-107) mmol/L Carbon Dioxide (22-30) mmol/L Anion Gap mmol/L BUN (9-20) mg/dL Creatinine (0.66-1.25) mg/dL Est GFR (CKD-EPI)AfAm (>60 ml/min/1.73 sqM) Est GFR (CKD-EPI)NonAf (>60 ml/min/1.73 sqM) Glucose (74-99) mg/dL Plasma Lactic Acid Giovanni (0.7-2.0) mmol/L Calcium (8.4-10.2) mg/dL Total Bilirubin (0.2-1.3) mg/dL AST (17-59) U/L ALT (4-49) U/L Alkaline Phosphatase (38-126) U/L Ammonia (<30) umol/L Lactate Dehydrogenase (313-618) U/L Troponin I 0.022 (0.000-0.034) ng/mL C-Reactive Protein (<1.0) mg/dL Total Protein (6.3-8.2) g/dL Albumin (3.5-5.0) g/dL Urine Color Urine Appearance (Clear) Urine pH (5.0-8.0) Ur Specific Nada (1.001-1.035) Urine Protein (Negative) Urine Glucose (UA) (Negative) Urine Ketones (Negative) Urine Blood (Negative) Urine Nitrite (Negative) Urine Bilirubin (Negative) Urine Urobilinogen (<2.0) mg/dL Ur Leukocyte Esterase (Negative) Urine RBC (0-5) /hpf Urine WBC (0-5) /hpf Ur Squamous Epith Cells (0-4) /hpf Hyaline Casts (0-2) /lpf Urine Mucus (None) /hpf Urine Opiates Screen (NotDetected) Ur Oxycodone Screen (NotDetected) Urine Methadone Screen (NotDetected) Ur Propoxyphene Screen (NotDetected) Ur Barbiturates Screen (NotDetected) U Tricyclic Antidepress (NotDetected) Ur Phencyclidine Scrn (NotDetected) Ur Amphetamines Screen (NotDetected) U Methamphetamines Scrn (NotDetected) U Benzodiazepines Scrn (NotDetected) Urine Cocaine Screen (NotDetected) U Marijuana (THC) Screen (NotDetected) Serum Alcohol mg/dL - EKG Data -: EKG Interpreted by Me (EKG is sinus tachycardia 104 CA 130 QRS 1O6 QTc 414) - Radiology Data Radiology results: report reviewed (X-ray knee and chest are negative for significant acute disease), image reviewed Critical Care Time Critical Care Time: Yes Total Critical Care Time: 31 Disposition Clinical Impression: Altered mental status, Effusion, left knee, Fever, Weakness, Infection of left knee, Postoperative infection, Sepsis Narrative: r/o Bacteremia Disposition: ADMITTED IP TO THIS HOSP Condition: Serious Is patient prescribed a controlled substance at d/c from ED?: No Referrals: Lorenzo Thomas MD [Primary Care Provider] - 1-2 days
[2021-11-13] MEDS: SODIUM CHLORIDE 0.9% 1,000 ML IV SCH (21:54)
--- NOTE | 2021-11-13 22:22 | XR ---
EXAMINATION TYPE: XR chest 1V portable DATE OF EXAM: 11/13/2021 COMPARISON: 12/07/2018 HISTORY: Short of breath altered mental status TECHNIQUE: Single view FINDINGS: There is some mild atelectasis at the lung bases. There is neural stimulator in the thoraci c spine. No heart failure seen. No definite pleural effusion. IMPRESSION: Atelectasis at the lung bases which appears slightly worse than last exam.
--- NOTE | 2021-11-13 22:26 | XR ---
EXAMINATION TYPE: XR knee complete LT DATE OF EXAM: 11/13/2021 COMPARISON: NONE HISTORY: Pain TECHNIQUE: 3 views FINDINGS: There is left knee prosthesis. There is anterior soft tissue swelling. No fracture seen. Th ere is knee joint effusion. There is some vascular calcification. IMPRESSION: Soft tissue swelling and knee joint effusion which is mostly new compared to old exam. No fracture seen. There is new soft tissue calcification above and below the patella compared to old ex am.
[2021-11-13 22:33] LABS: INR 1.2 (<1.2); Partial Thromboplastin Time 27.6 sec (22.0-30.0); Prothrombin Time 12.4 sec (9.0-12.0)
[2021-11-13 22:43] LABS: Anisocytosis Slight; Basophils % (A) 0 %; Eosinophils % (A) 0 %; HCT 42.7 % (39.0-53.0); Lymphocytes # (A) 0.3 k/uL (1.0-4.8); Lymphocytes % (A) 2 %; MCH 32.7 pg (25.0-35.0); MCHC 32.7 g/dL (31.0-37.0); Macrocytosis Slight; Mean Platelet Volume 7.7; Monocytes # (A) 0.7 k/uL (0-1.0); Monocytes % (A) 4 %; Neutrophils # (A) 15.1 k/uL (1.3-7.7); Neutrophils % (A) 93 %; Platelet Count 303 k/uL (150-450); RBC 4.27 m/uL (4.30-5.90); RDW 18.4 % (11.5-15.5); WBC 16.2 k/uL (3.8-10.6)
[2021-11-13 23:09] LABS: ALT 21 U/L (4-49); AST 26 U/L (17-59); African American GFR (CKD) >90 (>60 ml/min/1.73 sqM); Albumin 3.2 g/dL (3.5-5.0); Alcohol <10 mg/dL; Alkaline Phosphatase 54 U/L (38-126); Anion Gap 6 mmol/L; Blood Urea Nitrogen 12 mg/dL (9-20); C Reactive Protein 2.4 mg/dL (<1.0); Calcium 7.7 mg/dL (8.4-10.2); Carbon Dioxide 27 mmol/L (22-30); Chloride 99 mmol/L (98-107); Glucose 118 mg/dL (74-99); LDH 403 U/L (313-618); Non-African American GFR(CKD) >90 (>60 ml/min/1.73 sqM); Sodium 132 mmol/L (137-145); Total Bilirubin 0.5 mg/dL (0.2-1.3)
[2021-11-13 23:14] LABS: Appearance,Urine Clear (Clear); Bilirubin,Urine Negative (Negative); Blood,Urine Trace (Negative); Color,Urine Yellow; Glucose,Urine (UA) Negative (Negative); Hyaline Casts,Urine 1 /lpf (0-2); Ketones,Urine Trace (Negative); Leukocyte Esterase,Urine Trace (Negative); Mucus,Urine Few /hpf; Nitrite,Urine Negative (Negative); PH, Urine 5.5 (5.0-8.0); Protein,Urine Trace (Negative); RBC,Urine 2 /hpf (0-5); Specific Gravity,Urine 1.019 (1.001-1.035); Squamous Epithelial Cell,Urine <1 /hpf (0-4); Urobilinogen,Urine <2.0 mg/dL (<2.0); WBC,Urine 1 /hpf (0-5)
[2021-11-13 23:20] LABS: Cocaine Screen,Urine Not Detected (NotDetected); Phencyclidine Screen,Urine Not Detected (NotDetected); Urn Cannabinoid Scrn Detected (NotDetected)
[2021-11-13 23:24] LABS: Amphetamine Screen,Urine Not Detected (NotDetected); Barbiturate Screen,Urine Not Detected (NotDetected); Benzodiazepines Screen,Urine Not Detected (NotDetected); Methadone Screen, Urine Not Detected (NotDetected); Opiate Screen,Urine Detected (NotDetected); Oxycodone Screen, Urine Not Detected (NotDetected); Tricyclic Antidepressant,Urine Not Detected (NotDetected)
[2021-11-13] MEDS ORDERED: SODIUM CHLORIDE 0.9% 1,000 ML IV SCH (23:45)
[2021-11-13] MEDS ORDERED: SODIUM CHLORIDE 0.9% 500 ML 500 ML IV STA (23:50)
[2021-11-13] MEDS ORDERED: VANCOMYCIN IV PER PHARMACY 1 EACH MISC MISCELLANE PRN (23:50)
[2021-11-14] MEDS ORDERED: ACETAMINOPHEN TAB 325 MG TAB PO PRN (00:40)
[2021-11-14] MEDS ORDERED: NALOXONE 0.4 MG/ML 1 ML VIAL IV PRN (00:40)
[2021-11-14] MEDS ORDERED: ONDANSETRON 4 MG/2 ML VIAL IVP PRN (00:40)
[2021-11-14] MEDS ORDERED: VANCOMYCIN 1,750 MG in SODIUM CHLORIDE 0.9% 500 ML 500 ML IVPB ONE (01:00)
[2021-11-14] MEDS ORDERED: SODIUM CHLORIDE 0.9% 500 ML 500 ML IV ONE (02:33)
[2021-11-14 03:03] LABS: Glucose,Whole Blood 115 mg/dL (75-99)
[2021-11-14] MEDS ORDERED: SODIUM CHLORIDE 0.9% 500 ML 1,000 ML IV ONE (03:13)
--- NOTE | 2021-11-14 03:38 | P.EN ---
A- team: Indication: Hypotension Arrived on Scene to find: Patient resting comfortably in bed. Chart reviewed in case discussed with the RN in great detail. The patient was admitted to the hospital for sepsis secondary to left knee septic arthritis. Vital signs reviewed: BP 93/59, pulse 55, SpO2 97% on room air, temperature 98.2F Patient seen and examined at bedside. General: [non toxic], [no distress], [appears at stated age] Derm: Left knee swelling with erythema and 4-5 cm ulcer with purulent base noted, [warm], [dry] Head: [atraumatic], [normocephalic], [symmetric] Eyes: [EOMI], [no lid lag], [anicteric sclera] Mouth: [no lip lesion], [mucus membranes moist] Cardiovascular: [S1S2 reg], [no murmur], [positive posterior tibial pulse bilate ral], Lungs: [CTA bilateral], [no rhonchi, no rales] , [no accessory muscle use] Abdominal: [soft], [ nontender to palpation], [no guarding], [no appreciable organomegaly] Ext: [no gross muscle atrophy], [no edema], [no contractures] Neuro: [ CN II-XI grossly intact], [no focal neuro deficits] Psych: [Alert], [oriented], [appropriate affect] Assessment: Severe sepsis secondary to left knee septic arthritis Plan: Repeat lactic acid levels 1 L normal saline was ordered If patient's BP does not improve within 30 minutes or if lactate worsens, will recommend transferring patient to medical ICU Notified: Primary team notified by RN A Total of 40 minutes of critical care time was spent on the complex care of this patient.
[2021-11-14 04:54] LABS: Glucose,Whole Blood 122 mg/dL (75-99)
[2021-11-14] MEDS: SODIUM CHLORIDE 0.9% 1,000 ML IV SCH ×2 (06:17→17:27)
[2021-11-14] MEDS: NOREPINEPHRINE 4 MG in SODIUM CHLORIDE 0.9% 250 ML IV SCH ×2 (06:18→17:29)
[2021-11-14 08:00] LABS: Glucose,Whole Blood 115 mg/dL (75-99)
[2021-11-14] MEDS ORDERED: ATROPINE SULFATE 0.1 MG/ML 10ML SYRINGE ONE (08:06)
--- NOTE | 2021-11-14 08:06 | US ---
EXAMINATION TYPE: US venous doppler duplex LE LT DATE OF EXAM: 11/14/2021 7:45 AM COMPARISON: US 2020 CLINICAL HISTORY: rule out DVT. Left leg infection Exam done portable in ICU SIDE PERFORMED: Left TECHNIQUE: The lower extremity deep venous system is examined utilizing real time linear array sonog [place] with graded compression, doppler sonography and color-flow sonography. VESSELS IMAGED: Common Femoral Vein Deep Femoral Vein Greater Saphenous Vein * Femoral Vein Popliteal Vein Small Saphenous Vein * Proximal Calf Veins (* superficial vessels) Popliteal vein not assessed due to wraps and bandages covering patient's knee Left Leg: Visualized portions appear negative for DVT IMPRESSION: 1. Visualized portion lower extremity ultrasound negative for deep venous thrombosis. 2. Exam is nondiagnostic to the popliteal region due to bandaging.
[2021-11-14] MEDS: DOPamine DRIP 800 MG in DEXTROSE/WATER 1 250ML.BAG IV SCH (08:30)
[2021-11-14] MEDS ORDERED: FAMOTIDINE 20 MG/2 ML VIAL IV SCH (09:00)
--- NOTE | 2021-11-14 09:12 | P.CRDCN ---
History of Present Illness Consult date: 11/14/21 History of present illness: History of Present Illness: The patient is a 71-year-old male who presented with left knee discomfort and was found to have an infected knee with sepsis. He has underwent surgery on that knee in June of last year. Cardiology consultation was requested because of sinus bradycardia. While in the hospital in June of last year he had sinus bradycardia with a rate down to the 30s but no associated long pauses. He had an echocardiogram during that admission that showed an ejection fraction of 45-50% with mild mitral and tricuspid regurgitation. He subsequently underwent an event monitor that showed sinus mechanism with no significant bradycardia with one episode of nonsustained atrial tachycardia and an episode of paroxysmal atrial fibrillation but no pauses. Patient denies any chest discomfort, palpitations or dyspnea. He feels dizzy with change of position. In the ICU he had bradycardia and became quite somnolent. Of note that the patient has obstructive sleep apnea and uses his CPAP at home. He has no peripheral edema, PND or orthopnea. He has chronic back pain and has a pain pump. He has a history of hyperlipidemia and hypertension, he is a nondiabetic nonsmoker. His medication include simvastatin 80 mg daily, ramipril 10 mg daily, Cardura 4 mg twice a day, [place], methotrexate, Imuran Review of Systems: Respiratory: No history of asthma, bronchitis or recent cough. GI: She had nausea and vomiting today. No history of peptic ulcer disease. No recent GI bleed. : No hematuria or dysuria. Nervous System: No stroke or seizure. Physical Examination: 71-year-old male, alert and oriented no apparent distress, heart rate in the high 30s to 50s with a blood pressure 88-100 systolic Head: Normocephalic. Eyes: Sclerae nonicteric. Neck: Good carotid upstroke, no bruit, no jugular venous distention. Lungs: Clear to auscultation. Heart: Regular rate and rhythm, S1-S2, no S3, no rub. No murmur. Abdomen: Soft nontender, positive bowel sounds no organomegaly. Extremities: Dressing on the left knee, no significant edema Labs: Troponin 0.022, BUN and creatinine 12 and 0.68, hemoglobin 14, white blood cell 16.2, EKG revealed sinus tachycardia rate of [address]-T wave changes and borderline left axis deviation. Chest x-ray shows possible atelectasis Impression: 1. Infected left knee, workup in progress 2. Episodes of sinus bradycardia could be exacerbated by apnea. The patient has a history of obstructive sleep apnea. His event monitor showed episodes of paroxysmal atrial fibrillation 3. History of hypertension 4. Hyperlipidemia 5. Chronic back pain with pain pump 6. Obstructive sleep apnea 7. Prior history of mild cardiomyopathy of unclear etiology Plan: 1. Obtain an echocardiogram with Doppler 2. Evaluate thyroid function test 3. The patient may have bradycardia worsened by apnea. At this time there is no clear indication for pacemaker implantation 4. Use CPAP 5. Agree with the use of low dose dopamine for now 6. Depending on his progress further recommendations will be made. Thank you for this consult we will follow with you. 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 C PAP MACHINE, left knee surgery History of Any Multi-Drug Resistant Organisms: None Reported Past Surgical History: Hernia Repair Additional Past Surgical History / Comment(s): implanted pain stimulator, PAIN PUMP. STEROID INJECTION KNEES. COLONOSCOPY Past Anesthesia/Blood Transfusion Reactions: No Reported Reaction Smoking Status: Former smoker - Past Family History Mother Family Medical History: No Reported History Additional Family Medical History / Comment(s): of alcoholism Father Family Medical History: CVA/TIA, Myocardial Infarction ([place]) Medications and Allergies Home Medications Medication Instructions Recorded Confirmed Type Doxazosin Mesylate [Cardura] 4 mg PO BID 10/14/15 07/14/21 History Folic Acid 1 mg PO DAILY 10/14/15 07/14/21 History Simvastatin [Zocor] 80 mg PO DAILY 10/14/15 07/14/21 History allopurinoL [Zyloprim] 300 mg PO DAILY 10/14/15 07/14/21 History azaTHIOprine [Imuran] 50 mg PO TID 10/14/15 07/14/21 History Calcium Carbonate [Calcium] 600 mg PO DAILY #0 12/05/18 07/14/21 History Certolizumab Pegol [Cimzia] 400 mg SQ Q28D 05/07/19 07/14/21 History Morphine Pain Pump 1 dose INTRATHECA CONTINUOUS 12/05/19 07/14/21 History Baclofen [Lioresal] 20 mg PO TID 02/11/20 07/14/21 History Ramipril [Altace] 10 mg PO DAILY 02/11/20 07/14/21 History Methotrexate/Pf [Reditrex 25 mg/ml 25 mg SQ MO 06/21/21 07/14/21 History Syringe] HYDROcodone/APAP 7.5-325MG [[place] 1 - 2 tab PO Q6H PRN #32 tab 06/22/21 07/14/21 Rx 7.5-325] Ondansetron Odt [Zofran ODT] 1 tab PO Q8HR PRN #10 tab 06/22/21 07/14/21 Rx Cephalexin [Keflex] 500 mg PO QID 07/14/21 07/14/21 History rOPINIRole HCL [Requip] 4 mg PO HS 07/14/21 07/14/21 History HYDROcodone/APAP 7.5-325MG [[place] 1 - 2 tab PO Q6H PRN #32 tab 07/20/21 Rx 7.5-325] Sennosides [Senokot] 2 tab PO DAILY PRN #60 tablet 07/20/21 Rx Cefepime [Maxipime] 2 gm IVPB Q8H each 07/21/21 Rx Docusate [Colace] 100 mg PO DAILY PRN cap 07/21/21 Rx Ferrous Sulfate [Iron (65 MG 325 mg PO DAILY tab 07/21/21 Rx Elemental)] Gabapentin [Neurontin] 300 mg PO TID #9 cap 07/21/21 Rx Magnesium Hydroxide [Milk of 1,200 mg PO QID PRN ml 07/21/21 Rx Magnesia Concentrate] Meloxicam [Mobic] 15 mg PO DAILY #0 tab 07/21/21 Rx Pantoprazole [Protonix] 40 mg PO AC-BRKFST tab 07/21/21 Rx clonazePAM [KlonoPIN] 4 mg PO TID PRN #18 tab 07/21/21 Rx Allergies Allergy/AdvReac Type Severity Reaction Status Date / Time No Known Allergies Allergy Verified 11/13/21 21:16 Physical Exam Vitals: Vital Signs Temp Pulse Pulse Resp BP BP Pulse Ox 11/14/21 08:15 38 L 17 96/70 98 11/14/21 08:00 96.6 F L 40 L 18 99/74 99 11/14/21 07:45 56 L 17 88/51 98 11/14/21 07:30 43 L 19 88/52 98 11/14/21 07:15 40 L 16 83/61 98 11/14/21 07:00 48 L 18 88/51 97 11/14/21 06:45 51 L 19 83/52 97 11/14/21 06:30 47 L 13 81/53 97 11/14/21 06:15 46 L 17 83/61 96 11/14/21 06:00 50 L 17 86/53 94 L 11/14/21 05:45 49 L 19 94/64 95 11/14/21 05:30 97.8 F 52 L 20 102/60 96 11/14/21 05:15 59 L 17 103/67 94 L 11/14/21 05:00 53 L 17 108/82 96 11/14/21 04:51 55 L 16 11/14/21 04:13 55 L 79/53 96 11/14/21 02:53 60 70/48 11/14/21 02:46 52 L 18 75/50 95 11/14/21 02:43 75/38 11/14/21 02:36 54 L 67/38 11/14/21 02:17 53 L 75/44 11/14/21 02:13 57 L 68/46 11/14/21 01:52 97.5 F L 66 17 82/49 95 11/14/21 01:49 97.3 F L 70 15 82/49 94 L 11/14/21 01:15 99.0 F 11/14/21 01:00 64 16 99/56 94 L 11/14/21 00:27 78 18 92/56 95 11/13/21 23:43 99.3 F 77 20 82/48 95 11/13/21 22:49 101.2 F H 87 18 94/55 95 11/13/21 21:10 103.1 F H 111 H 22 123/67 97 Intake and Output 11/13/21 11/14/21 11/14/21 22:59 06:59 14:59 Intake Total 130 260 Output Total 350 Balance 130 -90 Intake: IV 130 Sodium Chloride 0.9% 1, 130 000 ml @ 130 mls/hr IV . Q7H42M [facility] Rx#:[id number] Intake, IV Titration 130 130 Amount Sodium Chloride 0.9% 1, 130 130 000 ml @ 130 mls/hr IV . Q7H42M [facility] Rx#:[id number] Oral 0 0 Output: Urine 350 Other: Weight 113.398 kg 113.398 kg Results 11/13/21 22:03 11/13/21 22:30 Cardiac Enzymes 11/13/21 11/13/21 Range/Units 22:30 22:30 AST 26 (17-59) U/L Lactate Dehydrogenase 403 (313-618) U/L Troponin I 0.022 (0.000-0.034) ng/mL Coagulation 11/13/21 Range/Units 22:03 PT 12.4 H (9.0-12.0) sec APTT 27.6 (22.0-30.0) sec CBC 11/13/21 Range/Units 22:03 WBC 16.2 H (3.8-10.6) k/uL RBC 4.27 L (4.30-5.90) m/uL Hgb 14.0 (13.0-17.5) gm/dL Hct 42.7 (39.0-53.0) % Plt Count 303 (150-450) k/uL Comprehensive Metabolic Panel 11/13/21 Range/Units 22:30 Sodium 132 L (137-145) mmol/L Potassium 4.0 (3.5-5.1) mmol/L Chloride 99 (98-107) mmol/L Carbon Dioxide 27 (22-30) mmol/L BUN 12 (9-20) mg/dL Creatinine 0.68 (0.66-1.25) mg/dL Glucose 118 H (74-99) mg/dL Calcium 7.7 L (8.4-10.2) mg/dL AST 26 (17-59) U/L ALT 21 (4-49) U/L Alkaline Phosphatase 54 (38-126) U/L Total Protein 6.0 L (6.3-8.2) g/dL Albumin 3.2 L (3.5-5.0) g/dL Current Medications Generic Name Dose Route Start Last Admin Trade Name Freq PRN Reason Stop Dose Admin Acetaminophen 650 mg 11/14/21 00:40 Acetaminophen Tab 325 Mg Tab PO Q6HR PRN Mild Pain or Fever > 100.5 Famotidine 20 mg 11/14/21 09:00 Famotidine 20 Mg/2 Ml Vial IV Q12HR [facility] Heparin Sodium (Porcine) 5,000 unit 11/14/21 09:00 Heparin Sodium,Porcine/Pf 5,000 Unit/0.5 Ml Syringe SQ Q12HR [facility] Sodium Chloride 1,000 mls @ 130 mls/hr 11/13/21 21:45 11/14/21 06:17 Saline 0.9% IV 130 mls/hr .Q7H42M [facility] Administration Sodium Chloride 1,000 mls @ 130 mls/hr 11/13/21 23:45 11/14/21 00:20 Saline 0.9% IV Not Given .Q7H42M [facility] Ceftriaxone Sodium 1 gm/ 50 mls @ 100 mls/hr 11/14/21 09:00 Sodium Chloride IVPB Q12HR [facility] Protocol Vancomycin HCl 1,750 mg/ 500 mls @ 167 mls/hr 11/14/21 09:00 Sodium Chloride IVPB Q8H [facility] Norepinephrine Bitartrate 4 mg 254 mls @ 21.602 mls/hr 11/14/21 04:30 11/14/21 06:18 / Sodium Chloride IV 0.02 mcg/kg/min .[id number] [facility] 8.641 mls/hr Administration Protocol 0.05 MCG/KG/MIN Dopamine HCl/Dextrose 800 mg/ 250 mls @ 5.316 mls/hr 11/14/21 08:00 11/14/21 08:30 IV Solution IV 2.5 mcg/kg/min .Q24H [facility] 5.316 mls/hr Administration Protocol 2.5 MCG/KG/MIN Ibuprofen 400 mg 11/14/21 00:40 Ibuprofen 400 Mg Tab PO Q6HR PRN Mild Pain or Fever > 100.5 Morphine Sulfate 4 mg 11/14/21 00:40 Morphine Sulfate 4 Mg/Ml Syringe IV Q4HR PRN Severe Pain Naloxone HCl 0.2 mg 11/14/21 00:40 Naloxone 0.4 Mg/Ml 1 Ml Vial IV Q2M PRN Opioid Reversal Ondansetron HCl 4 mg 11/14/21 00:40 Ondansetron 4 Mg/2 Ml Vial IVP Q8HR PRN Nausea And Vomiting Intake and Output 11/13/21 11/14/21 11/14/21 22:59 06:59 14:59 Intake Total 130 260 Output Total 350 Balance 130 -90 Intake: IV 130 Sodium Chloride 0.9% 1, 130 000 ml @ 130 mls/hr IV . Q7H42M [facility] Rx#:[id number] Intake, IV Titration 130 130 Amount Sodium Chloride 0.9% 1, 130 130 000 ml @ 130 mls/hr IV . Q7H42M [facility] Rx#:[id number] Oral 0 0 Output: Urine 350 Other: Weight 113.398 kg 113.398 kg 11/13/21 22:03 11/13/21 22:30
--- NOTE | 2021-11-14 10:02 | XR ---
EXAMINATION TYPE: XR chest 1V portable DATE OF EXAM: 11/14/2021 COMPARISON: 11/13/2021 INDICATION: Post line insertion TECHNIQUE: Single frontal view of the chest is obtained. FINDINGS: The heart size is normal. The pulmonary vasculature is somewhat prominent. The lungs are clear. There is a left central venous catheter with tip in the right atrium. Stimulator leads are again evid ent. IMPRESSION: 1. No pneumothorax post right central venous catheter placement, tip is in the right atrium. 2. Prominent pulmonary vascular markings. Correlate for volume overload
[2021-11-14] MEDS ORDERED: FUROSEMIDE 10 MG/ML 2 ML VIAL IV STA (10:13)
--- NOTE | 2021-11-14 10:31 | P.CNPUL ---
History of Present Illness Consult date: 11/14/21 Reason for consult: other (Hypotension, septic shock) Chief complaint: Altered mental status and fever. History of present illness: This is a 71-year-old white male with history of previous left total knee arthroplasty, and recurrent episodes of infection of the left knee. His last surgery on his left knee was back in June of 2021, and since then the patient has been having lots of issues and recurrent infections related to the left knee. He is being followed by orthopedics, he is also being followed by infectious disease on outpatient basis. Patient is known to have history of sinus bradycardia, chronic, history of hypertension, history of chronic back pain and he has a pain pump implanted in his left lower quadrant. History of obstructive sleep apnea maintained on CPAP, and he does have history of mild cardiomyopathy with ejection fraction of 45-50%. Patient was brought into the ER yesterday mostly with complaints of discomfort in the left knee, fever, and according to his the patient has been confused. Patient was initially admitted to the regular medical floor, he was started on antibiotics for presumptive septic knee joint, and antibiotics included vancomycin and Rocephin. Patient had extremely low blood pressure while on the medical floor, and he received 3-1/2 L of fluids, blood pressure remained low. Hence I accepted the patient to be transferred to the ICU, started him on a low dose of levo fed, however after I evaluated the patient this morning, I discontinued norepine phrine and started the patient on dopamine at 2.5 mcg/kg/m. The patient was given mostly because the patient was noted to be quite bradycardic with heart rate in the 30s, and intermittently he was noted to have intermittent episodes of apnea, rather brief, but the patient wakes up in few seconds on his own. During these episodes the patient was also noted to be quite bradycardic. Then I recommended a central line to be placed, and I recommended an arterial line which was done shortly after I evaluated the patient. Seemed to improve with dopamine instead of norepinephrine, heart rate came up nicely to the 50s, and his blood pressure responded well to dopamine. Chest x-ray post central line placement showed evidence of interstitial edema, remind you the patient received lots of fluids since last night, and I recommended a dose of Lasix 20 mg to be given. Again the patient is known to have history of LV dysfunction. Review of Systems Constitutional: Fever, weakness, fatigue, malaise. HEENT: History of obstructive sleep apnea syndrome patient has CPAP at home. Pulmonary: Denies any shortness of breath cough or wheezing Cardiac: As noted in HPI GI: Negative Genitourinary: Negative Musculoskeletal: Recurrent symptoms of septic knee joint, and previous surgery on the left knee last surgery was in June. Neurologic: Mental status change her admission however normally the patient is intact. Psychiatric: Negative. Hematologic: Negative. Endocrine: Negative. Skin: Negative. 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 C PAP MACHINE, left knee surgery History of Any Multi-Drug Resistant Organisms: None Reported Past Surgical History: Hernia Repair Additional Past Surgical History / Comment(s): implanted pain stimulator, PAIN PUMP. STEROID INJECTION KNEES. COLONOSCOPY Past Anesthesia/Blood Transfusion Reactions: No Reported Reaction Smoking Status: Former smoker - Past Family History Mother Family Medical History: No Reported History Additional Family Medical History / Comment(s): of alcoholism Father Family Medical History: CVA/TIA, Myocardial Infarction ([place]) Medications and Allergies Home Medications Medication Instructions Recorded Confirmed Type Doxazosin Mesylate [Cardura] 4 mg PO BID 10/14/15 07/14/21 History Folic Acid 1 mg PO DAILY 10/14/15 07/14/21 History Simvastatin [Zocor] 80 mg PO DAILY 10/14/15 07/14/21 History allopurinoL [Zyloprim] 300 mg PO DAILY 10/14/15 07/14/21 History azaTHIOprine [Imuran] 50 mg PO TID 10/14/15 07/14/21 History Calcium Carbonate [Calcium] 600 mg PO DAILY #0 12/05/18 07/14/21 History Certolizumab Pegol [Cimzia] 400 mg SQ Q28D 05/07/19 07/14/21 History Morphine Pain Pump 1 dose INTRATHECA CONTINUOUS 12/05/19 07/14/21 History Baclofen [Lioresal] 20 mg PO TID 02/11/20 07/14/21 History Ramipril [Altace] 10 mg PO DAILY 02/11/20 07/14/21 History Methotrexate/Pf [Reditrex 25 mg/ml 25 mg SQ MO 06/21/21 07/14/21 History Syringe] HYDROcodone/APAP 7.5-325MG [[place] 1 - 2 tab PO Q6H PRN #32 tab 06/22/21 07/14/21 Rx 7.5-325] Ondansetron Odt [Zofran ODT] 1 tab PO Q8HR PRN #10 tab 06/22/21 07/14/21 Rx Cephalexin [Keflex] 500 mg PO QID 07/14/21 07/14/21 History rOPINIRole HCL [Requip] 4 mg PO HS 07/14/21 07/14/21 History HYDROcodone/APAP 7.5-325MG [[place] 1 - 2 tab PO Q6H PRN #32 tab 07/20/21 Rx 7.5-325] Sennosides [Senokot] 2 tab PO DAILY PRN #60 tablet 07/20/21 Rx Cefepime [Maxipime] 2 gm IVPB Q8H each 07/21/21 Rx Docusate [Colace] 100 mg PO DAILY PRN cap 07/21/21 Rx Ferrous Sulfate [Iron (65 MG 325 mg PO DAILY tab 07/21/21 Rx Elemental)] Gabapentin [Neurontin] 300 mg PO TID #9 cap 07/21/21 Rx Magnesium Hydroxide [Milk of 1,200 mg PO QID PRN ml 07/21/21 Rx Magnesia Concentrate] Meloxicam [Mobic] 15 mg PO DAILY #0 tab 07/21/21 Rx Pantoprazole [Protonix] 40 mg PO AC-BRKFST tab 07/21/21 Rx clonazePAM [KlonoPIN] 4 mg PO TID PRN #18 tab 07/21/21 Rx Allergies Allergy/AdvReac Type Severity Reaction Status Date / Time No Known Allergies Allergy Verified 11/13/21 21:16 Physical Exam Vitals: Vital Signs Temp Pulse Pulse Resp BP BP Pulse Ox 11/14/21 10:00 47 L 12 96 11/14/21 09:45 49 L 16 96 11/14/21 09:30 45 L 14 99 11/14/21 09:15 50 L 11 L 100 11/14/21 09:00 50 L 14 100 11/14/21 08:45 45 L 15 86/55 98 11/14/21 08:30 46 L 14 95/56 98 11/14/21 08:15 38 L 17 96/70 98 11/14/21 08:00 96.6 F L 40 L 18 99/74 99 11/14/21 07:45 56 L 17 88/51 98 11/14/21 07:30 43 L 19 88/52 98 11/14/21 07:15 40 L 16 83/61 98 11/14/21 07:00 48 L 18 88/51 97 11/14/21 06:45 51 L 19 83/52 97 11/14/21 06:30 47 L 13 81/53 97 11/14/21 06:15 46 L 17 83/61 96 11/14/21 06:00 50 L 17 86/53 94 L 11/14/21 05:45 49 L 19 94/64 95 11/14/21 05:30 97.8 F 52 L 20 102/60 96 11/14/21 05:15 59 L 17 103/67 94 L 11/14/21 05:00 53 L 17 108/82 96 11/14/21 04:51 55 L 16 11/14/21 04:13 55 L 79/53 96 11/14/21 02:53 60 70/48 11/14/21 02:46 52 L 18 75/50 95 11/14/21 02:43 75/38 11/14/21 02:36 54 L 67/38 11/14/21 02:17 53 L 75/44 11/14/21 02:13 57 L 68/46 11/14/21 01:52 97.5 F L 66 17 82/49 95 11/14/21 01:49 97.3 F L 70 15 82/49 94 L 11/14/21 01:15 99.0 F 11/14/21 01:00 64 16 99/56 94 L 11/14/21 00:27 78 18 92/56 95 11/13/21 23:43 99.3 F 77 20 82/48 95 11/13/21 22:49 101.2 F H 87 18 94/55 95 11/13/21 21:10 103.1 F H 111 H 22 123/67 97 Intake and Output 11/13/21 11/14/21 11/14/21 22:59 06:59 14:59 Intake Total 130 543.331 Output Total 700 Balance 130 -156.669 Intake: IV 390 Sodium Chloride 0.9% 1, 390 000 ml @ 130 mls/hr IV . Q7H42M [facility] Rx#:[id number] Intake, IV Titration 130 153.331 Amount Norepinephrine 4 mg In 23.331 Sodium Chloride 0.9% 250 ml @ 0.05 MCG/KG/MIN 21. 602 mls/hr IV .[id number] [facility] Rx#:[id number] Sodium Chloride 0.9% 1, 130 130 000 ml @ 130 mls/hr IV . Q7H42M [facility] Rx#:[id number] Oral 0 0 Output: Urine 700 Other: # Voids 0 Weight 113.398 kg 113.398 kg ABP, PAP, CO, CI - Last 8 Hours Arterial Blood Pressure 104/41 Arterial Blood Pressure 110/43 Arterial Blood Pressure 111/42 Arterial Blood Pressure 98/50 Arterial Blood Pressure 120/51 Physical Exam: Revealed 71-year-old white male in no distress. Head: Atraumatic, normocephalic. HEENT:[Neck is supple.] [No neck masses.] [No thyromegaly.] [No JVD.]EOMI, nonicteric, no neck masses, no stridor, no JVD. Chest: [Symmetrical chest expansion. Minimal crackles at the bases no rhonchi and no wheezes. Cardiac Exam: Bradycardic. [Normal S1 and S2, no S3 gallop, no murmur.] Abdomen: [Soft, nontender, no megaly, no rebound, no guarding, normal bowel sounds.] Left lower quadrant pain pump is palpable. Extremities: [No clubbing, no edema, no cyanosis.], However there is evidence of dressing over the left knee, seems to be swollen, tender to palpation, being addressed by orthopedics on the case. 2+ edema noted in the left lower extremity below the knee. No evidence of DVT on Doppler done earlier today Neurological Exam: Alert oriented 3, intermittently noted to have episodes of brief apneas lasting a few seconds associated with bradycardia. Psychiatric: Normal mood, affect and normal mental status exam. Skin: No rashes. Results - Laboratory Findings CBC and BMP: 11/13/21 22:03 11/13/21 22:30 PT/INR, D-dimer PT 12.4 sec (9.0-12.0) H 11/13/21 22:03 INR 1.2 (<1.2) H 11/13/21 22:03 Abnormal lab findings: Abnormal Labs 11/13/21 11/13/21 11/13/21 22:03 22:03 22:30 WBC 16.2 H RBC 4.27 L RDW 18.4 H Neutrophils # 15.1 H Lymphocytes # 0.3 L PT 12.4 H INR 1.2 H Sodium Glucose POC Glucose (mg/dL) Calcium C-Reactive Protein Total Protein Albumin Urine Protein Trace H Urine Ketones Trace H Urine Blood Trace H Ur Leukocyte Esterase Trace H Urine Mucus Few H Urine Opiates Screen Detected H U Marijuana (THC) Screen Detected H 11/13/21 11/14/21 11/14/21 22:30 03:00 04:51 WBC RBC RDW Neutrophils # Lymphocytes # PT INR Sodium 132 L Glucose 118 H POC Glucose (mg/dL) 115 H 122 H Calcium 7.7 L C-Reactive Protein 2.4 H Total Protein 6.0 L Albumin 3.2 L Urine Protein Urine Ketones Urine Blood Ur Leukocyte Esterase Urine Mucus Urine Opiates Screen U Marijuana (THC) Screen 11/14/21 07:59 WBC RBC RDW Neutrophils # Lymphocytes # PT INR Sodium Glucose POC Glucose (mg/dL) 115 H Calcium C-Reactive Protein Total Protein Albumin Urine Protein Urine Ketones Urine Blood Ur Leukocyte Esterase Urine Mucus Urine Opiates Screen U Marijuana (THC) Screen - Diagnostic Findings Chest x-ray: image reviewed (As noted in HPI.) Assessment and Plan Assessment: Impression: Septic shock secondary to septic knee joint. Septic knee joint is strongly suspected. Hypotension secondary to sepsis/septic shock, could also be related to profound bradycardia intermittently. Acute systolic congestive heart failure, ejection fraction of 45%. Likely exacerbated by fluid boluses given earlier for hypotension. History of rheumatoid arthritis History of obstructive sleep apnea syndrome History of dyslipidemia Chronic back pain, patient has a pain pump in place. History of ulcerative colitis. History of nephrolithiasis. History of left knee arthroplasty. Recommendation: Continue to monitor in the ICU Continue dopamine Cut down on IV fluids for now and gentle diuresis to be given to the patient. Continue antibiotics and adjust accordingly based on cultures. Blood cultures are ordered. Discontinue norepinephrine and start dopamine for now. CPAP to be used at bedside, patient to bring his own CPAP. Pain control. GI and DVT prophylaxis. Continue to monitor electrolytes and renal profile. Infectious disease consultation. Central line placement/done. Hemodynamic monitoring/arterial line was placed. Prognosis is quite guarded, patient is obviously critically ill. We will continue to follow. Time with Patient: Greater than 30
[2021-11-14] MEDS: HEPARIN SODIUM,PORCINE/PF 5,000 UNIT/0.5 ML SYRINGE SQ SCH ×2 (10:34→20:19)
[2021-11-14] MEDS: ATORVASTATIN 40 MG TAB PO SCH (10:34)
[2021-11-14] MEDS: VANCOMYCIN 1,750 MG in SODIUM CHLORIDE 0.9% 500 ML 500 ML IVPB SCH ×2 (10:50→17:29)
--- NOTE | 2021-11-14 11:31 | PCN ---
PROCEDURE NOTE OPERATIVE REPORT: Placement of a right subclavian triple-lumen catheter. PREOPERATIVE DIAGNOSES: Hypotension, septic knee joint, and profound bradycardia. POSTOPERATIVE DIAGNOSES: Hypotension, septic knee joint, and profound bradycardia. ANESTHESIA USED: 2 mL of 1% lidocaine. PROCEDURE PERFORMED: The patient was placed in the Trendelenburg position, the area of the right subclavian region was prepared in a sterile fashion and drapes were applied. The area below the right clavicle was anesthetized locally with lidocaine. Then using the inferior approach, the right subclavian vein was easily cannulated, and a guidewire was placed. An area around the guidewire was dilated. Then the triple-lumen catheter was inserted over the guidewire, and the guidewire was removed. Good blood flow was noted in the 3 different ports of the triple-lumen catheter. The line was secured using 3.0 silk sutures. A chest x-ray showed no evidence of any complications. The procedure was well tolerated. MMODL / IJN: [id number] /
--- NOTE | 2021-11-14 11:31 | PCN ---
PROCEDURE NOTE OPERATIVE REPORT: Placement of the left radial arterial line. PREOPERATIVE DIAGNOSES: Sepsis and septic shock with septic knee joint. POSTOPERATIVE DIAGNOSES: Sepsis and septic shock with septic knee joint. ANESTHESIA: None deployed. PROCEDURE: The patient was placed in the supine position. The left wrist was prepared in a sterile fashion and drapes were applied. The left radial artery was palpated, cannulated, and a guidewire was placed. A Cook's catheter was inserted over the guidewire, and the guidewire was removed. Good blood flow, good waveform noted, no complications. Line was secured using 3.0 silk sutures. MMODL / IJN: [id number] /
--- NOTE | 2021-11-14 12:37 | P.CNOR ---
History of Present Illness - HPI Consult date: 11/14/21 Consult reason: other History of present illness: Patient seen at bedside this morning with Dr. Lr in the ICU. Is awake, alert and oriented, comfortable and pleasant. He was admitted through the ED yesterday for altered mental status. He is doing well today. He has no complaints. He is S/P left TKA, and subsequent wound infection I and D, he has been receiving wound care and antibiotics. He denies fever, chils, chest pain, SOB, calf pain, slurred speech or other Review of Systems All systems: negative Constitutional: Denies chills, Denies fever Eyes: denies blurred vision, denies pain Ears, nose, mouth and throat: Denies headache, Denies sore throat Cardiovascular: Denies chest pain, Denies shortness of breath Respiratory: Denies cough Gastrointestinal: Denies abdominal pain, Denies diarrhea, Denies nausea, Denies vomiting Musculoskeletal: Denies myalgias Integumentary: Denies pruritus, Denies rash Neurological: Denies numbness, Denies weakness Psychiatric: Denies anxiety, Denies depression Endocrine: Denies fatigue, Denies weight change Past Medical History Past Medical History: Hyperlipidemia, Hypertension, Rheumatoid Arthritis (RA), Sleep Apnea/CPAP/BIPAP Additional Past Medical History / Comment(s): ulcerative colitis, kidney stones, 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 C PAP MACHINE, left knee surgery History of Any Multi-Drug Resistant Organisms: None Reported Past Surgical History: Hernia Repair Additional Past Surgical History / Comment(s): implanted pain stimulator, PAIN PUMP. STEROID INJECTION KNEES. COLONOSCOPY Past Anesthesia/Blood Transfusion Reactions: No Reported Reaction Smoking Status: Former smoker - Past Family History Mother Family Medical History: No Reported History Additional Family Medical History / Comment(s): of alcoholism Father Family Medical History: CVA/TIA, Myocardial Infarction ([place]) Medications and Allergies Home Medications Medication Instructions Recorded Confirmed Type Doxazosin Mesylate [Cardura] 4 mg PO BID 10/14/15 11/14/21 History Folic Acid 1 mg PO DAILY 10/14/15 11/14/21 History Simvastatin [Zocor] 80 mg PO DAILY 10/14/15 11/14/21 History allopurinoL [Zyloprim] 300 mg PO DAILY 10/14/15 11/14/21 History azaTHIOprine [Imuran] 50 mg PO TID 10/14/15 11/14/21 History Calcium Carbonate [Calcium] 600 mg PO DAILY #0 12/05/18 11/14/21 History Certolizumab Pegol [Cimzia] 400 mg SQ DIRECTED 05/07/19 11/14/21 History Morphine Pain Pump 1 dose INTRATHECA CONTINUOUS 12/05/19 11/14/21 History Baclofen [Lioresal] 20 mg PO TID 02/11/20 11/14/21 History Ramipril [Altace] 10 mg PO DAILY 02/11/20 11/14/21 History Methotrexate/Pf [Reditrex 25 mg/ml 25 mg SQ MO 06/21/21 11/14/21 History Syringe] rOPINIRole HCL [Requip] 4 mg PO HS 07/14/21 11/14/21 History Ferrous Sulfate [Iron (65 MG 325 mg PO DAILY tab 07/21/21 11/14/21 Rx Elemental)] Gabapentin [Neurontin] 300 mg PO TID #9 cap 07/21/21 11/14/21 Rx clonazePAM [KlonoPIN] 4 mg PO TID PRN #18 tab 07/21/21 11/14/21 Rx Ciprofloxacin HCl [Cipro] 500 mg PO BID 11/14/21 11/14/21 History Furosemide [Lasix] 20 mg PO DAILY 11/14/21 11/14/21 History Glucosam/Tim-Msm1/C/Harish/Bosw 1 tab PO DAILY 11/14/21 11/14/21 History [Glucosamine-Chondroitin Tablet] HYDROcodone/APAP 7.5-325MG [[place] 1 tab PO DAILY PRN 11/14/21 11/14/21 History 7.5-325] carvediloL [Coreg] 3.125 mg PO BID 11/14/21 11/14/21 History metroNIDAZOLE [Flagyl] 500 mg PO TID 11/14/21 11/14/21 History Allergies Allergy/AdvReac Type Severity Reaction Status Date / Time No Known Allergies Allergy Verified 11/14/21 10:33 Physical Examination Inspection of left knee shows no diffuse erythema. It not overly hot to touch. It is nontender. No pain with ROM. There is an open wound minimal to no drainage or bleeding. Neurovascular status is intact throughout the lower extremity with motor and sensation fully intact. Calf is soft and nontender. 2+ dorsalis pedis pulse and less than 2 second cap refill is present. Results - Labs Labs: Abnormal Lab Results - Last 24 Hours (Table) 11/13/21 11/13/21 11/13/21 Range/Units 22:03 22:03 22:30 WBC 16.2 H (3.8-10.6) k/uL RBC 4.27 L (4.30-5.90) m/uL RDW 18.4 H (11.5-15.5) % Neutrophils # 15.1 H (1.3-7.7) k/uL Lymphocytes # 0.3 L (1.0-4.8) k/uL PT 12.4 H (9.0-12.0) sec INR 1.2 H (<1.2) Sodium (137-145) mmol/L Glucose (74-99) mg/dL POC Glucose (mg/dL) (75-99) mg/dL Calcium (8.4-10.2) mg/dL C-Reactive Protein (<1.0) mg/dL Total Protein (6.3-8.2) g/dL Albumin (3.5-5.0) g/dL Urine Protein Trace H (Negative) Urine Ketones Trace H (Negative) Urine Blood Trace H (Negative) Ur Leukocyte Esterase Trace H (Negative) Urine Mucus Few H (None) /hpf Urine Opiates Screen Detected H (NotDetected) U Marijuana (THC) Screen Detected H (NotDetected) 11/13/21 11/14/21 11/14/21 Range/Units 22:30 03:00 04:51 WBC (3.8-10.6) k/uL RBC (4.30-5.90) m/uL RDW (11.5-15.5) % Neutrophils # (1.3-7.7) k/uL Lymphocytes # (1.0-4.8) k/uL PT (9.0-12.0) sec INR (<1.2) Sodium 132 L (137-145) mmol/L Glucose 118 H (74-99) mg/dL POC Glucose (mg/dL) 115 H 122 H (75-99) mg/dL Calcium 7.7 L (8.4-10.2) mg/dL C-Reactive Protein 2.4 H (<1.0) mg/dL Total Protein 6.0 L (6.3-8.2) g/dL Albumin 3.2 L (3.5-5.0) g/dL Urine Protein (Negative) Urine Ketones (Negative) Urine Blood (Negative) Ur Leukocyte Esterase (Negative) Urine Mucus (None) /hpf Urine Opiates Screen (NotDetected) U Marijuana (THC) Screen (NotDetected) 11/14/21 Range/Units 07:59 WBC (3.8-10.6) k/uL RBC (4.30-5.90) m/uL RDW (11.5-15.5) % Neutrophils # (1.3-7.7) k/uL Lymphocytes # (1.0-4.8) k/uL PT (9.0-12.0) sec INR (<1.2) Sodium (137-145) mmol/L Glucose (74-99) mg/dL POC Glucose (mg/dL) 115 H (75-99) mg/dL Calcium (8.4-10.2) mg/dL C-Reactive Protein (<1.0) mg/dL Total Protein (6.3-8.2) g/dL Albumin (3.5-5.0) g/dL Urine Protein (Negative) Urine Ketones (Negative) Urine Blood (Negative) Ur Leukocyte Esterase (Negative) Urine Mucus (None) /hpf Urine Opiates Screen (NotDetected) U Marijuana (THC) Screen (NotDetected) H & H 11/13/21 Range/Units 22:03 Hgb 14.0 (13.0-17.5) gm/dL Hct 42.7 (39.0-53.0) % Coagulation 11/13/21 Range/Units 22:03 INR 1.2 H (<1.2) Result Diagrams: 11/13/21 22:03 11/13/21 22:30 Assessment and Plan (1) Infection of left knee Narrative/Plan: Recommend continue wound care, pain management, DVT prophylaxis, IM/ID/Cardiology management. Will continue to monitor and make further recommendations pending clinical course. Current Visit: Yes Status: Acute Priority: Medium Code(s): M00.9 - PYOGENIC ARTHRITIS, UNSPECIFIED SNOMED Code(s): 879314646 Time with Patient: Less than 30
--- NOTE | 2021-11-14 12:58 | P.HPIM ---
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 He is following up With Dr. Walker for his back pain.. He is S/P left TKA, and subsequent wound infection I and D. He is a patient of Dr. Thomas Patient says that his made him come to the hospital yesterday because he was delirious. His orthopedic is Dr. his health, last week he had I&D done for his left knee for a whole aspirin going on for about 2 months. Lipitor pump on it and was monitored every week. Last week the wound was closed as per patient by stitches. Patient reports some swelling in his leg, states that at home he walks with a cane. He denies any chest pain or dyspnea, no dysuria, no diarrhea or vomiting, no abdominal pain. No rash. No reported fever, no headache or weakness or numbness He denies smoking, alcohol or illicit drugs. On admission he was hypotensive and blood pressure dropped with systolic in the 80s and 90s, he was febrile with temperature of 103.1 Labs showing evidence of leukocytosis 16.2, hemoglobin and platelet count are within the normal range. INR 1.2. Sodium 132, creatinine normal, rest of BMP, liver enzymes are unremarkable. Troponin is negative at 0.02. Urine analysis is still suspicious of infection Urine drug screen is positive for opioids and marijuana Chest x-ray: No acute process. Left knee X-ray: Soft tissue swelling and left knee joint effusion EKG showing sinus tachycardia at [address]-T changes and QTC 414. 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 HEENT: No recent visual problems or hearing problems. Denied any sore throat. CARDIOVASCULAR: No orthopnea, PND, no palpitations, no syncope. PULMONARY: No shortness of breath, no cough, no hemoptysis. GASTROINTESTINAL: No diarrhea, no nausea, no vomiting, no abdominal pain. Normoactive bowel sounds. NEUROLOGICAL: No headaches, no weakness, no numbness. HEMATOLOGICAL: Denies any bleeding or petechiae. GENITOURINARY: Denies any burning micturition, frequency, or urgency. MUSCULOSKELETAL/RHEUMATOLOGICAL: Denies any joint pain, swelling, or any muscle pain. ENDOCRINE: Denies any polyuria or polydipsia. 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 C PAP MACHINE, left knee surgery History of Any Multi-Drug Resistant Organisms: None Reported Past Surgical History: Hernia Repair Additional Past Surgical History / Comment(s): implanted pain stimulator, PAIN PUMP. STEROID INJECTION KNEES. COLONOSCOPY Past Anesthesia/Blood Transfusion Reactions: No Reported Reaction Smoking Status: Former smoker - Past Family History Mother Family Medical History: No Reported History Additional Family Medical History / Comment(s): of alcoholism Father Family Medical History: CVA/TIA, Myocardial Infarction ([place]) Medications and Allergies Home Medications Medication Instructions Recorded Confirmed Type Doxazosin Mesylate [Cardura] 4 mg PO BID 10/14/15 11/14/21 History Folic Acid 1 mg PO DAILY 10/14/15 11/14/21 History Simvastatin [Zocor] 80 mg PO DAILY 10/14/15 11/14/21 History allopurinoL [Zyloprim] 300 mg PO DAILY 10/14/15 11/14/21 History azaTHIOprine [Imuran] 50 mg PO TID 10/14/15 11/14/21 History Calcium Carbonate [Calcium] 600 mg PO DAILY #0 12/05/18 11/14/21 History Certolizumab Pegol [Cimzia] 400 mg SQ DIRECTED 05/07/19 11/14/21 History Morphine Pain Pump 1 dose INTRATHECA CONTINUOUS 12/05/19 11/14/21 History Baclofen [Lioresal] 20 mg PO TID 02/11/20 11/14/21 History Ramipril [Altace] 10 mg PO DAILY 02/11/20 11/14/21 History Methotrexate/Pf [Reditrex 25 mg/ml 25 mg SQ MO 06/21/21 11/14/21 History Syringe] rOPINIRole HCL [Requip] 4 mg PO HS 07/14/21 11/14/21 History Ferrous Sulfate [Iron (65 MG 325 mg PO DAILY tab 07/21/21 11/14/21 Rx Elemental)] Gabapentin [Neurontin] 300 mg PO TID #9 cap 07/21/21 11/14/21 Rx clonazePAM [KlonoPIN] 4 mg PO TID PRN #18 tab 07/21/21 11/14/21 Rx Ciprofloxacin HCl [Cipro] 500 mg PO BID 11/14/21 11/14/21 History Furosemide [Lasix] 20 mg PO DAILY 11/14/21 11/14/21 History Glucosam/Tim-Msm1/C/Harish/Bosw 1 tab PO DAILY 11/14/21 11/14/21 History [Glucosamine-Chondroitin Tablet] HYDROcodone/APAP 7.5-325MG [[place] 1 tab PO DAILY PRN 11/14/21 11/14/21 History 7.5-325] carvediloL [Coreg] 3.125 mg PO BID 11/14/21 11/14/21 History metroNIDAZOLE [Flagyl] 500 mg PO TID 11/14/21 11/14/21 History Allergies Allergy/AdvReac Type Severity Reaction Status Date / Time No Known Allergies Allergy Verified 11/14/21 10:33 Physical Exam Vitals: Vital Signs Temp Pulse Pulse Resp BP BP Pulse Ox 11/14/21 07:00 48 L 18 88/51 97 11/14/21 06:45 51 L 19 83/52 97 11/14/21 06:30 47 L 13 81/53 97 11/14/21 06:15 46 L 17 83/61 96 11/14/21 06:00 50 L 17 86/53 94 L 11/14/21 05:45 49 L 19 94/64 95 11/14/21 05:30 97.8 F 52 L 20 102/60 96 11/14/21 05:15 59 L 17 103/67 94 L 11/14/21 05:00 53 L 17 108/82 96 11/14/21 04:51 55 L 16 11/14/21 04:13 55 L 79/53 96 11/14/21 02:53 60 70/48 11/14/21 02:46 52 L 18 75/50 95 11/14/21 02:43 75/38 11/14/21 02:36 54 L 67/38 11/14/21 02:17 53 L 75/44 11/14/21 02:13 57 L 68/46 11/14/21 01:52 97.5 F L 66 17 82/49 95 11/14/21 01:49 97.3 F L 70 15 82/49 94 L 11/14/21 01:15 99.0 F 11/14/21 01:00 64 16 99/56 94 L 11/14/21 00:27 78 18 92/56 95 11/13/21 23:43 99.3 F 77 20 82/48 95 11/13/21 22:49 101.2 F H 87 18 94/55 95 11/13/21 21:10 103.1 F H 111 H 22 123/67 97 Intake and Output 11/13/21 11/14/21 11/14/21 22:59 06:59 14:59 Intake Total 130 130 Output Total 0 Balance 130 130 Intake: Intake, IV Titration 130 130 Amount Sodium Chloride 0.9% 1, 130 130 000 ml @ 130 mls/hr IV . Q7H42M [facility] Rx#:[id number] Oral 0 0 Output: Urine 0 Other: Weight 113.398 kg 113.398 kg GENERAL: The patient is alert and oriented x3, not in any acute distress. Well developed, well nourished. HEENT: Pupils are round and equally reacting to light. EOMI. No scleral icterus. No conjunctival pallor. Normocephalic, atraumatic. No pharyngeal erythema. No thyromegaly. CARDIOVASCULAR: S1 and S2 present. No murmurs, rubs, or gallops. PULMONARY: Chest is clear to auscultation, no wheezing or crackles. ABDOMEN: Soft, nontender, nondistended, normoactive bowel sounds. No palpable organomegaly. -MUSCULOSKELETAL: No joint swelling or deformity. Left knee swelling and in a dressing EXTREMITIES: No cyanosis, clubbing, or pedal edema. NEUROLOGICAL: Gross neurological examination did not reveal any focal deficits. SKIN: No rashes. No petechiae Results CBC & Chem 7: 11/13/21 22:03 11/13/21 22:30 Labs: Abnormal Lab Results - Last 24 Hours (Table) 11/13/21 11/13/21 11/13/21 Range/Units 22:03 22:03 22:30 WBC 16.2 H (3.8-10.6) k/uL RBC 4.27 L (4.30-5.90) m/uL RDW 18.4 H (11.5-15.5) % Neutrophils # 15.1 H (1.3-7.7) k/uL Lymphocytes # 0.3 L (1.0-4.8) k/uL PT 12.4 H (9.0-12.0) sec INR 1.2 H (<1.2) Sodium (137-145) mmol/L Glucose (74-99) mg/dL POC Glucose (mg/dL) (75-99) mg/dL Calcium (8.4-10.2) mg/dL C-Reactive Protein (<1.0) mg/dL Total Protein (6.3-8.2) g/dL Albumin (3.5-5.0) g/dL Urine Protein Trace H (Negative) Urine Ketones Trace H (Negative) Urine Blood Trace H (Negative) Ur Leukocyte Esterase Trace H (Negative) Urine Mucus Few H (None) /hpf Urine Opiates Screen Detected H (NotDetected) U Marijuana (THC) Screen Detected H (NotDetected) 11/13/21 11/14/21 11/14/21 Range/Units 22:30 03:00 04:51 WBC (3.8-10.6) k/uL RBC (4.30-5.90) m/uL RDW (11.5-15.5) % Neutrophils # (1.3-7.7) k/uL Lymphocytes # (1.0-4.8) k/uL PT (9.0-12.0) sec INR (<1.2) Sodium 132 L (137-145) mmol/L Glucose 118 H (74-99) mg/dL POC Glucose (mg/dL) 115 H 122 H (75-99) mg/dL Calcium 7.7 L (8.4-10.2) mg/dL C-Reactive Protein 2.4 H (<1.0) mg/dL Total Protein 6.0 L (6.3-8.2) g/dL Albumin 3.2 L (3.5-5.0) g/dL Urine Protein (Negative) Urine Ketones (Negative) Urine Blood (Negative) Ur Leukocyte Esterase (Negative) Urine Mucus (None) /hpf Urine Opiates Screen (NotDetected) U Marijuana (THC) Screen (NotDetected) Thrombosis Risk Factor Assmnt - Choose All That Apply Each Factor Represents 1 point: Swollen legs (current) Each Risk Factor Represents 2 Points: Age 61-74 years, Major surgery Thrombosis Risk Factor Assessment Total Risk Factor Score: 5 Thrombosis Risk Factor Assessment Level: High Risk Assessment and Plan Assessment: Possible Left knee septic arthritis. He is He is S/P left TKA, and subsequent wound infection I and D for Severe sepsis and septic shock secondary to above Substance abuse with cannabis Possible new onset atrial fibrillation Hypertension Hyperlipidemia History of rheumatoid arthritis History of ulcerative colitis History of sleep apnea on CPAP/BiPAP History of tremor History of chronic back pain status post implanted pain stimulator in the left lower back with pain pump Plan: This is a pleasant 71 years old male who presents with severe sepsis and shock secondary to left knee septic arthritis, there is concern for atrial fibrillation as well Continue with antibiotics as per ID team which were consulted Continue with IV hydration Continue with the pressors currently is on levophed , with the pulmonary/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 fib Orthopedic team on the case as well Labs and medication were reviewed.. Continue same treatment. Continue with symptomatic treatment. Resume home medication. Monitor lytes and vitals. DVT and GI prophylaxis. Further recommendations depends on the clinical course of the patient DVT prophylaxis: Subcutaneous heparin GI Prophylaxis: Pepcid PT/OT: Pending Prognosis is guarded Dr. Thomas will resume the care of the patient tomorrow
[2021-11-14] MEDS: CEFEPIME 2 GM in SODIUM CHLORIDE 0.9% 100 ML IVPB SCH (17:25)
[2021-11-14] MEDS: FAMOTIDINE 20 MG TAB PO SCH (20:19)
[2021-11-14] MEDS: MORPHINE SULFATE 4 MG/ML SYRINGE IV PRN (20:20)
--- NOTE | 2021-11-14 23:41 | P.CONS ---
History of Present Illness - Reason for Consult Consult date: 11/14/21 Fever and left leg infection Requesting physician: Everardo Real - Chief Complaint Mental status changes x one day - History of Present Illness Patient is a 71-year male with a past medical history significant for left knee infection in this patient who is status post I&D back in June 2021 culture positive for Enterobacter cloacae for the patient has completed IV cefepime and is currently on suppressive oral Cipro and Flagyl as a culture done in the outpatient setting on 07/14/2021 were also positive for Peptostreptococcus patient postoperatively did have a problem with nonhealing of his left knee wound treated with the conservative therapy and recently did have a surgical closure of the wound patient presenting to the [facility] ER last night for evaluation of her mental status changes and fever mention the patient was not coherent or answering questions appropriately with the symptoms started the day of presentation to the hospital the patient denies having any headache no URI symptoms no chest pain or shortness of breath minimal cough no abdominal pain no diarrhea and denies any worsening pain to the left knee area patient on presentation to the hospital did have a fever of 103 F patient did not have hypoxemia and need for supplemental oxygen he did have white count of 16.2 with a left shift patient urine was negative urine testing was positive for opiates and marijuana patient did have a chest x-ray atelectasis at lung bases x-ray of the knee soft tissue swelling and knee effusion which is mostly new compared to old exam patient was started on Rocephin and vancomycin has been admitted to the hospital infectious disease was consulted for further management blood cultures obtained which are currently pending Review of Systems Positive point has been mentioned in the HPI rest of the systems are negative Past Medical History Past Medical History: Hyperlipidemia, Hypertension, Rheumatoid Arthritis (RA), Sleep Apnea/CPAP/BIPAP Additional Past Medical History / Comment(s): ulcerative colitis, kidney stones, 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 C PAP MACHINE, left knee surgery History of Any Multi-Drug Resistant Organisms: None Reported Past Surgical History: Hernia Repair Additional Past Surgical History / Comment(s): implanted pain stimulator, PAIN PUMP. STEROID INJECTION KNEES. COLONOSCOPY Past Anesthesia/Blood Transfusion Reactions: No Reported Reaction Smoking Status: Former smoker - Past Family History Mother Family Medical History: No Reported History Additional Family Medical History / Comment(s): of alcoholism Father Family Medical History: CVA/TIA, Myocardial Infarction ([place]) Medications and Allergies Home Medications Medication Instructions Recorded Confirmed Type Doxazosin Mesylate [Cardura] 4 mg PO BID 10/14/15 11/14/21 History Folic Acid 1 mg PO DAILY 10/14/15 11/14/21 History Simvastatin [Zocor] 80 mg PO DAILY 10/14/15 11/14/21 History allopurinoL [Zyloprim] 300 mg PO DAILY 10/14/15 11/14/21 History azaTHIOprine [Imuran] 50 mg PO TID 10/14/15 11/14/21 History Calcium Carbonate [Calcium] 600 mg PO DAILY #0 12/05/18 11/14/21 History Certolizumab Pegol [Cimzia] 400 mg SQ DIRECTED 05/07/19 11/14/21 History Morphine Pain Pump 1 dose INTRATHECA CONTINUOUS 12/05/19 11/14/21 History Baclofen [Lioresal] 20 mg PO TID 02/11/20 11/14/21 History Ramipril [Altace] 10 mg PO DAILY 02/11/20 11/14/21 History Methotrexate/Pf [Reditrex 25 mg/ml 25 mg SQ MO 06/21/21 11/14/21 History Syringe] rOPINIRole HCL [Requip] 4 mg PO HS 07/14/21 11/14/21 History Ferrous Sulfate [Iron (65 MG 325 mg PO DAILY tab 07/21/21 11/14/21 Rx Elemental)] Gabapentin [Neurontin] 300 mg PO TID #9 cap 07/21/21 11/14/21 Rx clonazePAM [KlonoPIN] 4 mg PO TID PRN #18 tab 07/21/21 11/14/21 Rx Ciprofloxacin HCl [Cipro] 500 mg PO BID 11/14/21 11/14/21 History Furosemide [Lasix] 20 mg PO DAILY 11/14/21 11/14/21 History Glucosam/Tim-Msm1/C/Harish/Bosw 1 tab PO DAILY 11/14/21 11/14/21 History [Glucosamine-Chondroitin Tablet] HYDROcodone/APAP 7.5-325MG [[place] 1 tab PO DAILY PRN 11/14/21 11/14/21 History 7.5-325] carvediloL [Coreg] 3.125 mg PO BID 11/14/21 11/14/21 History metroNIDAZOLE [Flagyl] 500 mg PO TID 11/14/21 11/14/21 History Allergies Allergy/AdvReac Type Severity Reaction Status Date / Time No Known Allergies Allergy Verified 11/14/21 10:33 Physical Exam Vitals: Vital Signs Temp Pulse Pulse Resp BP BP Pulse Ox 11/14/21 14:15 61 12 95 11/14/21 14:00 62 12 95 11/14/21 13:45 70 13 95 11/14/21 13:30 64 14 95 11/14/21 13:15 52 L 18 97 11/14/21 13:00 58 L 13 96 11/14/21 12:45 57 L 14 95 11/14/21 12:30 60 14 99 11/14/21 12:15 60 16 98 11/14/21 12:00 98.0 F 63 15 97 11/14/21 11:45 67 14 96 11/14/21 11:30 49 L 15 100 11/14/21 11:15 62 16 99 11/14/21 11:00 60 13 99 11/14/21 10:45 72 11 L 94 L 11/14/21 10:30 55 L 12 94 L 11/14/21 10:15 50 L 18 98 11/14/21 10:00 47 L 12 96 11/14/21 09:45 49 L 16 96 11/14/21 09:30 45 L 14 99 11/14/21 09:15 50 L 11 L 100 11/14/21 09:00 50 L 14 100 11/14/21 08:45 45 L 15 86/55 98 11/14/21 08:30 46 L 14 95/56 98 11/14/21 08:15 38 L 17 96/70 98 11/14/21 08:00 96.6 F L 40 L 18 99/74 99 11/14/21 07:45 56 L 17 88/51 98 11/14/21 07:30 43 L 19 88/52 98 11/14/21 07:15 40 L 16 83/61 98 11/14/21 07:00 48 L 18 88/51 97 11/14/21 06:45 51 L 19 83/52 97 11/14/21 06:30 47 L 13 81/53 97 11/14/21 06:15 46 L 17 83/61 96 11/14/21 06:00 50 L 17 86/53 94 L 11/14/21 05:45 49 L 19 94/64 95 11/14/21 05:30 97.8 F 52 L 20 102/60 96 11/14/21 05:15 59 L 17 103/67 94 L 11/14/21 05:00 53 L 17 108/82 96 11/14/21 04:51 55 L 16 11/14/21 04:13 55 L 79/53 96 11/14/21 02:53 60 70/48 11/14/21 02:46 52 L 18 75/50 95 11/14/21 02:43 75/38 11/14/21 02:36 54 L 67/38 11/14/21 02:17 53 L 75/44 11/14/21 02:13 57 L 68/46 11/14/21 01:52 97.5 F L 66 17 82/49 95 11/14/21 01:49 97.3 F L 70 15 82/49 94 L 11/14/21 01:15 99.0 F 11/14/21 01:00 64 16 99/56 94 L 11/14/21 00:27 78 18 92/56 95 11/13/21 23:43 99.3 F 77 20 82/48 95 11/13/21 22:49 101.2 F H 87 18 94/55 95 11/13/21 21:10 103.1 F H 111 H 22 123/67 97 Intake and Output 11/13/21 11/14/21 11/14/21 22:59 06:59 14:59 Intake Total 130 1243.331 Output Total 3050 Balance 130 -1806.669 Intake: IV 1090 Sodium Chloride 0.9% 1, 540 000 ml @ 50 mls/hr IV . Q20H [facility] Rx#:[id number] Vancomycin 1,750 mg In 500 Sodium Chloride 0.9% 500 ml 500 ml @ 167 mls/hr IVPB ONCE ONE Rx#: [id number] cefTRIAXone 1 gm In 50 Sodium Chloride 0.9% 50 ml @ 100 mls/hr IVPB Q12HR [facility] Rx#:[id number] Intake, IV Titration 130 153.331 Amount Norepinephrine 4 mg In 23.331 Sodium Chloride 0.9% 250 ml @ 0.05 MCG/KG/MIN 21. 602 mls/hr IV .[id number] [facility] Rx#:[id number] Sodium Chloride 0.9% 1, 130 130 000 ml @ 130 mls/hr IV . Q7H42M [facility] Rx#:[id number] Oral 0 0 Output: Urine 3050 Other: Voiding Method Urinal # Voids 0 Weight 113.398 kg 113.398 kg ABP, PAP, CO, CI - Last 8 Hours Arterial Blood Pressure 104/44 Arterial Blood Pressure 91/46 Arterial Blood Pressure 104/48 Arterial Blood Pressure 116/51 Arterial Blood Pressure 114/46 Arterial Blood Pressure 125/51 Arterial Blood Pressure 111/47 Arterial Blood Pressure 115/47 Arterial Blood Pressure 98/39 Arterial Blood Pressure 105/42 Arterial Blood Pressure 103/50 Arterial Blood Pressure 115/48 Arterial Blood Pressure 112/46 Arterial Blood Pressure 139/56 Arterial Blood Pressure 122/52 Arterial Blood Pressure 110/45 Arterial Blood Pressure 110/45 Arterial Blood Pressure 104/41 Arterial Blood Pressure 110/43 Arterial Blood Pressure 111/42 Arterial Blood Pressure 98/50 Arterial Blood Pressure 120/51 GENERAL DESCRIPTION: Elderly male lying in bed, no distress. No tachypnea or accessory muscle of respiration use. HEENT: Shows Pallor , no scleral icterus. Oral mucous membrane is dry. No pharyngeal erythema or thrush NECK: Trachea central, no thyromegaly. LUNGS: Unlabored breathing. Clear to auscultation anteriorly. No wheeze or crackle. HEART: S1, S2, regular rate and rhythm. No loud murmur ABDOMEN: Soft, no tenderness , guarding or rigidity, no organomegaly EXTREMITIES: Left knee incision is currently with the stitches on did have minimal structure some swelling no foul-smelling drainage. SKIN: No rash, no masses palpable. NEUROLOGICAL: The patient is awake, alert, oriented x3, mood and affect normal. Results CBC & Chem 7: 11/13/21 22:03 11/13/21 22:30 Labs: Abnormal Lab Results - Last 24 Hours (Table) 11/13/21 11/13/21 11/13/21 Range/Units 22:03 22:03 22:30 WBC 16.2 H (3.8-10.6) k/uL RBC 4.27 L (4.30-5.90) m/uL RDW 18.4 H (11.5-15.5) % Neutrophils # 15.1 H (1.3-7.7) k/uL Lymphocytes # 0.3 L (1.0-4.8) k/uL PT 12.4 H (9.0-12.0) sec INR 1.2 H (<1.2) Sodium (137-145) mmol/L Glucose (74-99) mg/dL POC Glucose (mg/dL) (75-99) mg/dL Calcium (8.4-10.2) mg/dL C-Reactive Protein (<1.0) mg/dL Total Protein (6.3-8.2) g/dL Albumin (3.5-5.0) g/dL Urine Protein Trace H (Negative) Urine Ketones Trace H (Negative) Urine Blood Trace H (Negative) Ur Leukocyte Esterase Trace H (Negative) Urine Mucus Few H (None) /hpf Urine Opiates Screen Detected H (NotDetected) U Marijuana (THC) Screen Detected H (NotDetected) 11/13/21 11/14/21 11/14/21 Range/Units 22:30 03:00 04:51 WBC (3.8-10.6) k/uL RBC (4.30-5.90) m/uL RDW (11.5-15.5) % Neutrophils # (1.3-7.7) k/uL Lymphocytes # (1.0-4.8) k/uL PT (9.0-12.0) sec INR (<1.2) Sodium 132 L (137-145) mmol/L Glucose 118 H (74-99) mg/dL POC Glucose (mg/dL) 115 H 122 H (75-99) mg/dL Calcium 7.7 L (8.4-10.2) mg/dL C-Reactive Protein 2.4 H (<1.0) mg/dL Total Protein 6.0 L (6.3-8.2) g/dL Albumin 3.2 L (3.5-5.0) g/dL Urine Protein (Negative) Urine Ketones (Negative) Urine Blood (Negative) Ur Leukocyte Esterase (Negative) Urine Mucus (None) /hpf Urine Opiates Screen (NotDetected) U Marijuana (THC) Screen (NotDetected) 11/14/21 Range/Units 07:59 WBC (3.8-10.6) k/uL RBC (4.30-5.90) m/uL RDW (11.5-15.5) % Neutrophils # (1.3-7.7) k/uL Lymphocytes # (1.0-4.8) k/uL PT (9.0-12.0) sec INR (<1.2) Sodium (137-145) mmol/L Glucose (74-99) mg/dL POC Glucose (mg/dL) 115 H (75-99) mg/dL Calcium (8.4-10.2) mg/dL C-Reactive Protein (<1.0) mg/dL Total Protein (6.3-8.2) g/dL Albumin (3.5-5.0) g/dL Urine Protein (Negative) Urine Ketones (Negative) Urine Blood (Negative) Ur Leukocyte Esterase (Negative) Urine Mucus (None) /hpf Urine Opiates Screen (NotDetected) U Marijuana (THC) Screen (NotDetected) Assessment and Plan (1) Sepsis Current Visit: Yes Status: Acute Code(s): A41.9 - SEPSIS, UNSPECIFIED ORGANISM SNOMED Code(s): 74386575 Plan: 1patient presented to hospital with sepsis in this patient did have a fever elevated white count and mental status changes in this patient currently u ndergoing treatment for his left knee septic arthritis with the previous culture positive for Enterobacter and Peptostreptococcus has been treated with washout of the knee and is currently on suppressive oral biotic therapy patient currently do not have any other obvious focus of infection no suspicious for pneumonia urine was negative abdominal soft local examination and possible concern for left knee infection. 2patient may benefit from two-stage procedure for removal of this infected knee and antibiotic spacer placement along with deep cultures 3continue with the vancomycin pharmacy to dose however switch Rocephin to cefepime. 4local wound care to continue the knee with Medihoney followed by moist dressing We will follow on clinical condition and cultures to further adjust medication if needed Thank you for this consultation will follow this patient along with you Time with Patient: Greater than 30
[2021-11-15] MEDS: CEFEPIME 2 GM in SODIUM CHLORIDE 0.9% 100 ML IVPB SCH ×3 (00:08→16:24)
[2021-11-15] MEDS: VANCOMYCIN 1,750 MG in SODIUM CHLORIDE 0.9% 500 ML 500 ML IVPB SCH ×3 (00:08→18:13)
[2021-11-15] MEDS: IBUPROFEN 400 MG TAB PO PRN ×2 (00:17→08:05)
[2021-11-15 05:15] LABS: Anisocytosis Slight; Basophils % (A) 0 %; Eosinophils # (A) 0.2 k/uL (0-0.7); Eosinophils % (A) 2 %; HCT 34.7 % (39.0-53.0); HGB 11.3 gm/dL (13.0-17.5); Hypochromasia Slight; Lymphocytes # (A) 0.7 k/uL (1.0-4.8); Lymphocytes % (A) 7 %; MCHC 32.5 g/dL (31.0-37.0); MCV 101.7 fL (80.0-100.0); Macrocytosis Moderate; Monocytes # (A) 0.4 k/uL (0-1.0); Monocytes % (A) 4 %; Neutrophils # (A) 8.4 k/uL (1.3-7.7); Neutrophils % (A) 84 %; Platelet Count 244 k/uL (150-450); RBC 3.42 m/uL (4.30-5.90); RDW 18.3 % (11.5-15.5)
[2021-11-15] MEDS: MORPHINE SULFATE 4 MG/ML SYRINGE IV PRN (05:27)
[2021-11-15 05:42] LABS: ALT 18 U/L (4-49); AST 20 U/L (17-59); African American GFR (CKD) >90 (>60 ml/min/1.73 sqM); Albumin 2.8 g/dL (3.5-5.0); Alkaline Phosphatase 54 U/L (38-126); Anion Gap 5 mmol/L; Blood Urea Nitrogen 14 mg/dL (9-20); Carbon Dioxide 26 mmol/L (22-30); Chloride 105 mmol/L (98-107); Glucose 98 mg/dL (74-99); Non-African American GFR(CKD) >90 (>60 ml/min/1.73 sqM); Sodium 136 mmol/L (137-145); Total Bilirubin 0.4 mg/dL (0.2-1.3); Total Protein 5.5 g/dL (6.3-8.2)
[2021-11-15] MEDS: ATORVASTATIN 40 MG TAB PO SCH (08:05)
[2021-11-15] MEDS: FAMOTIDINE 20 MG TAB PO SCH ×2 (08:06→21:15)
[2021-11-15] MEDS: HEPARIN SODIUM,PORCINE/PF 5,000 UNIT/0.5 ML SYRINGE SQ SCH ×2 (08:07→21:16)
--- NOTE | 2021-11-15 08:07 | P.PN ---
Subjective History of Present Illness: The patient is a 71-year-old male who presented with left knee discomfort and was found to have an infected knee with sepsis. He has underwent surgery on that knee in June of last year. Cardiology consultation was requested because of sinus bradycardia. While in the hospital in June of last year he had sinus bradycardia with a rate down to the 30s but no associated long pauses. He had an echocardiogram during that admission that showed an ejection fraction of 45-50% with mild mitral and tricuspid regurgitation. He subsequently underwent an event monitor that showed sinus mechanism with no significant bradycardia with one episode of nonsustained atrial tachycardia and an episode of paroxysmal atrial fibrillation but no pauses. Patient denies any chest discomfort, palpitations or dyspnea. He feels dizzy with change of position. In the ICU he had bradycardia and became quite somnolent. Of note that the patient has obstructive sleep apnea and uses his CPAP at home. He has no peripheral edema, PND or orthopnea. He has chronic back pain and has a pain pump. He has a history of hyperlipidemia and hypertension, he is a nondiabetic nonsmoker. His medication include simvastatin 80 mg daily, ramipril 10 mg daily, Cardura 4 mg twice a day, [place], methotrexate, Imuran 11/15 Patient seen and examined. Patient denies any chest pain or pressure. Still remains on dopamine at 2.5 with heart rates in the 50s. Telemetry reviewed with frequent PACs, no pauses greater than 2 seconds. Patient denies any lightheadedness or dizziness. He is off of vasopressors. TSH noted to be normal. Echo pending from this morning. Physical Examination: vitals reviewed Head: Normocephalic. Eyes: Sclerae nonicteric. Neck: Good carotid upstroke, no bruit, no jugular venous distention. Lungs: Clear to auscultation. Heart: Regular rate and rhythm, S1-S2, no S3, no rub. No murmur. Abdomen: Soft nontender, positive bowel sounds no organomegaly. Extremities: Dressing on the left knee, 1+ edema on left Impression: 1. Infected left knee, workup in progress 2. Episodes of sinus bradycardia could be exacerbated by apnea. The patient has a history of obstructive sleep apnea. His event monitor showed brief episodes of paroxysmal atrial fibrillation 3. History of hypertension 4. Hyperlipidemia 5. Chronic back pain with pain pump 6. Obstructive sleep apnea 7. Prior history of mild cardiomyopathy of unclear etiology Plan: Patient's heart rates remained fairly stable mainly in the 50s and 60s on low- dose dopamine. No current indications for permanent pacemaker and would like to avoid especially given infection. Attempt to wean and discontinue dopamine and monitor response. Await results of 2-D echo however no signs or symptoms of endocarditis. Objective - Vital Signs Vital signs: Vital Signs Temp 98.0 F 11/15/21 04:00 Pulse 60 11/15/21 07:00 Resp 14 11/15/21 07:00 BP 112/79 11/15/21 07:00 Pulse Ox 97 11/15/21 07:00 Intake & Output 11/14/21 11/15/21 11/15/21 18:59 06:59 18:59 Intake Total 8931.243 5867 290 Output Total 3050 950 0 Balance -1056.669 450 290 Weight 120 kg Intake: IV 1840 920 50 Cefepime 2 gm In Sodium 100 100 Chloride 0.9% 100 ml @ 25 mls/hr IVPB Q8HR [facility] Rx# :[id number] Sodium Chloride 0.9% 1, 690 320 50 000 ml @ 50 mls/hr IV . Q20H [facility] Rx#:[id number] Vancomycin 1,750 mg In 1000 500 Sodium Chloride 0.9% 500 ml 500 ml @ 167 mls/hr IVPB ONCE ONE Rx#: [id number] cefTRIAXone 1 gm In 50 Sodium Chloride 0.9% 50 ml @ 100 mls/hr IVPB Q12HR [facility] Rx#:[id number] Intake, IV Titration 153.331 Amount Norepinephrine 4 mg In 23.331 Sodium Chloride 0.9% 250 ml @ 0.05 MCG/KG/MIN 21. 602 mls/hr IV .[id number] [facility] Rx#:[id number] Sodium Chloride 0.9% 1, 130 000 ml @ 130 mls/hr IV . Q7H42M [facility] Rx#:[id number] Oral 0 480 240 Output: Urine 3050 950 0 Other: Voiding Method Urinal Urinal # Voids 0 0 0 ABP, PAP, CO, CI - Last Documented Arterial Blood Pressure 104/71 - Labs CBC & Chem 7: 11/15/21 05:00 11/15/21 05:00 Labs: Abnormal Lab Results - Last 24 Hours (Table) 11/15/21 11/15/21 Range/Units 05:00 05:00 RBC 3.42 L (4.30-5.90) m/uL Hgb 11.3 L (13.0-17.5) gm/dL Hct 34.7 L (39.0-53.0) % MCV 101.7 H (80.0-100.0) fL RDW 18.3 H (11.5-15.5) % Neutrophils # 8.4 H (1.3-7.7) k/uL Lymphocytes # 0.7 L (1.0-4.8) k/uL Sodium 136 L (137-145) mmol/L Creatinine 0.52 L (0.66-1.25) mg/dL Calcium 8.0 L (8.4-10.2) mg/dL Total Protein 5.5 L (6.3-8.2) g/dL Albumin 2.8 L (3.5-5.0) g/dL Microbiology - Last 24 Hours (Table) 11/13/21 21:57 Blood Culture - Preliminary Blood No Growth after 24 hours 11/13/21 21:50 Blood Culture - Preliminary Blood No Growth after 24 hours
[2021-11-15] MEDS: DOPamine DRIP 800 MG in DEXTROSE/WATER 1 250ML.BAG IV SCH (08:09)
[2021-11-15] MEDS ORDERED: HYDROcodone/APAP 7.5-325MG 1 EACH TAB PO PRN (08:32)
--- NOTE | 2021-11-15 08:39 | P.PN ---
Subjective Principal diagnosis: Sepsis with altered mental status The patient 7-year-old white male with known history of tremor rheumatoid arth ritis with history of postop knee infection. Multiple consultants are noted. The patient seems to be stable today and is answering questions appropriately. He would like to restart Hale intermittently for his pain. We will withhold some methotrexate and Imuran today related to infection. Objective - Vital Signs Vital signs: Vital Signs Temp 98.3 F 11/15/21 08:00 Pulse 55 L 11/15/21 08:00 Resp 11 L 11/15/21 08:00 BP 122/80 11/15/21 08:00 Pulse Ox 97 11/15/21 08:00 Intake & Output 11/14/21 11/15/21 11/15/21 18:59 06:59 18:59 Intake Total 8703.915 9292 730.723 Output Total 3050 950 0 Balance -1056.669 450 730.723 Weight 120 kg Intake: IV 1840 920 115 Cefepime 2 gm In Sodium 100 100 25 Chloride 0.9% 100 ml @ 25 mls/hr IVPB Q8HR [facility] Rx# :[id number] Sodium Chloride 0.9% 1, 690 320 90 000 ml @ 50 mls/hr IV . Q20H [facility] Rx#:[id number] Vancomycin 1,750 mg In 1000 500 Sodium Chloride 0.9% 500 ml 500 ml @ 167 mls/hr IVPB ONCE ONE Rx#: [id number] cefTRIAXone 1 gm In 50 Sodium Chloride 0.9% 50 ml @ 100 mls/hr IVPB Q12HR [facility] Rx#:[id number] Intake, IV Titration 153.331 125.723 Amount DOPamine DRIP 800 mg In 125.723 Dextrose/Water 1 250ml. bag @ 2.5 MCG/KG/MIN 5. 316 mls/hr IV .Q24H [facility] Rx#:[id number] Norepinephrine 4 mg In 23.331 Sodium Chloride 0.9% 250 ml @ 0.05 MCG/KG/MIN 21. 602 mls/hr IV .[id number] [facility] Rx#:[id number] Sodium Chloride 0.9% 1, 130 000 ml @ 130 mls/hr IV . Q7H42M [facility] Rx#:[id number] Oral 0 480 490 Output: Urine 3050 950 0 Other: Voiding Method Urinal Urinal # Voids 0 0 0 ABP, PAP, CO, CI - Last Documented Arterial Blood Pressure 104/71 - Constitutional General appearance: Present: average body habitus - EENT Eyes: Absent: abnormal pupil - Neck Neck: Absent: lymphadenopathy - Respiratory Respiratory: bilateral: CTA - Cardiovascular Rhythm: regular Heart sounds: normal: S1, S2 Abnormal Heart Sounds: Absent: S3 Gallop - Gastrointestinal General gastrointestinal: Present: tenderness - Labs CBC & Chem 7: 11/15/21 05:00 11/15/21 05:00 Labs: Abnormal Lab Results - Last 24 Hours (Table) 11/15/21 11/15/21 Range/Units 05:00 05:00 RBC 3.42 L (4.30-5.90) m/uL Hgb 11.3 L (13.0-17.5) gm/dL Hct 34.7 L (39.0-53.0) % MCV 101.7 H (80.0-100.0) fL RDW 18.3 H (11.5-15.5) % Neutrophils # 8.4 H (1.3-7.7) k/uL Lymphocytes # 0.7 L (1.0-4.8) k/uL Sodium 136 L (137-145) mmol/L Creatinine 0.52 L (0.66-1.25) mg/dL Calcium 8.0 L (8.4-10.2) mg/dL Total Protein 5.5 L (6.3-8.2) g/dL Albumin 2.8 L (3.5-5.0) g/dL Microbiology - Last 24 Hours (Table) 11/13/21 21:57 Blood Culture - Preliminary Blood No Growth after 24 hours 11/13/21 21:50 Blood Culture - Preliminary Blood No Growth after 24 hours Assessment and Plan (1) Altered mental status Current Visit: Yes Status: Acute Code(s): R41.82 - ALTERED MENTAL STATUS, UNSPECIFIED SNOMED Code(s): 333075964 (2) Effusion, left knee Current Visit: Yes Status: Acute Code(s): M25.462 - EFFUSION, LEFT KNEE SNOMED Code(s): 473615685527887 (3) Infection of left knee Current Visit: Yes Status: Acute Priority: Medium Code(s): M00.9 - PYOGENIC ARTHRITIS, UNSPECIFIED SNOMED Code(s): 875691555 (4) Sepsis Current Visit: Yes Status: Acute Code(s): A41.9 - SEPSIS, UNSPECIFIED ORGANISM SNOMED Code(s): 73940756 (5) Rheumatoid arthritis Current Visit: No Status: Acute Code(s): M06.9 - RHEUMATOID ARTHRITIS, UNSPECIFIED SNOMED Code(s): 51297882 Plan: Go ahead and give Hale when necessary for low level pain. Check CBC and CMP in a.m. Appreciate multiple consultants input. Continue current regimen of IV antibiotics. Prognosis is guarded.
[2021-11-15] MEDS ORDERED: NON FORMULARY DRUG (Glucosam/Chon-Msm1/C/Mang/Bosw [Glucosamine-Chondroitin Tablet] 1 EACH PO SCH (09:00)
[2021-11-15] MEDS ORDERED: NON FORMULARY DRUG (Simvastatin [Zocor] 80 MG Tablet) PO SCH (09:00)
[2021-11-15] MEDS: allopurinoL 300 MG TAB PO SCH (09:57)
[2021-11-15] MEDS: DOXAZOSIN 4 MG TAB PO SCH ×2 (09:57→21:59)
[2021-11-15] MEDS: CALCIUM CARBONATE 500 MG CHEWABLE PO SCH (09:57)
[2021-11-15] MEDS: BACLOFEN 10 MG TAB PO SCH ×3 (09:58→21:16)
[2021-11-15] MEDS: GABAPENTIN 300 MG CAP PO SCH ×3 (09:59→21:15)
[2021-11-15] MEDS: FERROUS SULFATE 325 MG TAB PO SCH (09:59)
[2021-11-15] MEDS: FOLIC ACID 1 MG TAB PO SCH (09:59)
[2021-11-15] MEDS: SODIUM CHLORIDE 0.9% 1,000 ML IV SCH (10:00)
--- NOTE | 2021-11-15 10:45 | ECHOF ---
Referral Reason:cm MEASUREMENTS -------- HEIGHT: 182.9 cm WEIGHT: 119.7 kg BP: RVIDd: 3.7 cm (< 3.3) IVSd: 1.2 cm (0.6 - 1.1) LVIDd: 5.5 cm (3.9 - 5.3) LVPWd: 1.4 cm (0.6 - 1.1) IVSs: 1.5 cm LVIDs: 4.2 cm LVPWs: 1.3 cm LA Diam: 4.9 cm (2.7 - 3.8) MV E Matias: 0.92 m/s MV DecT: 140 ms MV A Matias: 0.55 m/s MV E/A Ratio: 1.67 FINDINGS -------- Sinus rhythm. This was a techncally difficult study with suboptimal views, , Lumason utilized for enhancement of im ages. The left ventricular size is normal. There is mild concentric left ventricular hypertrophy. Overa ll left ventricular systolic function is mild-moderately impaired with, an EF between 40 - 45 %. The right ventricle is normal in size. The left atrial size is normal. The right atrial size is normal. 5.0mg OF Lumason UTLIZED: 2 OR MORE WALL SEGMENTS NOT VISUALIZED. The aortic valve was not well visualized. The mitral valve was not well visualized. The tricuspid valve was not well visualized. The pulmonic valve was not well visualized. There is no pericardial effusion. CONCLUSIONS -------- 1. This was a techncally difficult study with suboptimal views, , Lumason utilized for enhancement of images. 2. The left ventricular size is normal. 3. There is mild concentric left ventricular hypertrophy. 4. Overall left ventricular systolic function is mild-moderately impaired with, an EF between 40 - 45 %. 5. The right ventricle is normal in size. 6. The left atrial size is normal. 7. The right atrial size is normal. 8. 5.0mg OF Lumason UTLIZED: 2 OR MORE WALL SEGMENTS NOT VISUALIZED. 9. The aortic valve was not well visualized. 10. The mitral valve was not well visualized. 11. The tricuspid valve was not well visualized. 12. The pulmonic valve was not well visualized. 13. There is no pericardial effusion. TRANSPORTATION PROJECT MANAGER: Concetta Lovelace RDCS
--- NOTE | 2021-11-15 10:50 | P.PN ---
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 His last surgery on his left knee was back in June of 2021, and since then the patient has been having lots of issues and recurrent infections related to the l eft knee. He is being followed by orthopedics, he is also being followed by infectious disease on outpatient basis. Patient is known to have history of sinus bradycardia, chronic, history of hypertension, history of chronic back pain and he has a pain pump implanted in his left lower quadrant. History of obstructive sleep apnea maintained on CPAP, and he does have history of mild cardiomyopathy with ejection fraction of 45-50%. Patient was brought into the ER yesterday mostly with complaints of discomfort in the left knee, fever, and according to his the patient has been confused. Patient was initially admitted to the regular medical floor, he was started on antibiotics for presump tive septic knee joint, and antibiotics included vancomycin and Rocephin. Patient had extremely low blood pressure while on the medical floor, and he received 3-1/2 L of fluids, blood pressure remained low. Hence I accepted the patient to be transferred to the ICU, started him on a low dose of levo fed, however after I evaluated the patient this morning, I discontinued norepinephrine and started the patient on dopamine at 2.5 mcg/kg/m. The patient was given mostly because the patient was noted to be quite bradycardic with heart rate in the 30s, and intermittently he was noted to have intermittent episodes of apnea, rather brief, but the patient wakes up in few seconds on his own. During these episodes the patient was also noted to be quite bradycardic. Then I recommended a central line to be placed, and I recommended an arterial line which was done shortly after I evaluated the patient. Seemed to improve with dopamine instead of norepinephrine, heart rate came up nicely to the 50s, and his blood pressure responded well to dopamine. Chest x-ray post central line placement showed evidence of interstitial edema, remind you the patient received lots of fluids since last night, and I recommended a dose of Lasix 20 mg to be given. Again the patient is known to have history of LV dysfunction. The patient is seen today 11/15/2021 in follow-up in the intensive care unit. He is currently sitting up in bed. Awake and alert in no acute distress. He is maintaining good O2 saturations in the 90s on room air. He's has normal saline at 50 MLS per hour. He remains on a dopamine drip at 2.5 mcg/kg/m. He is on antibiotics in the form of vancomycin and cefepime. Blood cultures are revealing no growth to date. White count 10.0. Hemoglobin 11.3. Sodium 136. Potassium 4.0. Bicarb 26. BUN 14. Creatinine 0.5 daily. He has been hemodynamically stable. Not requiring pressors. Objective - Vital Signs Vital signs: Vital Signs Temp 98.3 F 11/15/21 08:00 Pulse 57 L 11/15/21 09:00 Resp 20 11/15/21 09:00 BP 124/88 11/15/21 09:00 Pulse Ox 97 11/15/21 08:00 Intake & Output 11/14/21 11/15/21 11/15/21 18:59 06:59 18:59 Intake Total 2601.458 6843 795.723 Output Total 3050 950 275 Balance -1056.669 450 520.723 Weight 120 kg Intake: IV 1840 920 180 Cefepime 2 gm In Sodium 100 100 50 Chloride 0.9% 100 ml @ 25 mls/hr IVPB Q8HR [facility] Rx# :[id number] Sodium Chloride 0.9% 1, 690 320 130 000 ml @ 50 mls/hr IV . Q20H [facility] Rx#:[id number] Vancomycin 1,750 mg In 1000 500 Sodium Chloride 0.9% 500 ml 500 ml @ 167 mls/hr IVPB ONCE ONE Rx#: [id number] cefTRIAXone 1 gm In 50 Sodium Chloride 0.9% 50 ml @ 100 mls/hr IVPB Q12HR [facility] Rx#:[id number] Intake, IV Titration 153.331 125.723 Amount DOPamine DRIP 800 mg In 125.723 Dextrose/Water 1 250ml. bag @ 2.5 MCG/KG/MIN 5. 316 mls/hr IV .Q24H [facility] Rx#:[id number] Norepinephrine 4 mg In 23.331 Sodium Chloride 0.9% 250 ml @ 0.05 MCG/KG/MIN 21. 602 mls/hr IV .[id number] [facility] Rx#:[id number] Sodium Chloride 0.9% 1, 130 000 ml @ 130 mls/hr IV . Q7H42M [facility] Rx#:[id number] Oral 0 480 490 Output: Urine 3050 950 275 Other: Voiding Method Urinal Urinal Urinal # Voids 0 0 0 ABP, PAP, CO, CI - Last Documented Arterial Blood Pressure 104/71 - Exam GENERAL EXAM: Alert, very pleasant 71-year-old male patient, on room air, comfortable in no apparent distress. HEAD: Normocephalic. EYES: Normal reaction of pupils, equal size. NOSE: Clear with pink turbinates. THROAT: No erythema or exudates. NECK: No masses, no JVD. CHEST: No chest wall deformity. LUNGS: Equal air entry with no crackles, wheeze, rhonchi or dullness. CVS: S1 and S2 normal with no audible murmur, regular rhythm. ABDOMEN: No hepatosplenomegaly, normal bowel sounds, no guarding or rigidity. SPINE: No scoliosis or deformity SKIN: No rashes CENTRAL NERVOUS SYSTEM: No focal deficits, tone is normal in all 4 extremities. EXTREMITIES: Left knee edematous and open wound. There is no peripheral edema. No clubbing, no cyanosis. Peripheral pulses are intact. - Labs CBC & Chem 7: 11/15/21 05:00 11/15/21 05:00 Labs: Abnormal Lab Results - Last 24 Hours (Table) 11/15/21 11/15/21 Range/Units 05:00 05:00 RBC 3.42 L (4.30-5.90) m/uL Hgb 11.3 L (13.0-17.5) gm/dL Hct 34.7 L (39.0-53.0) % MCV 101.7 H (80.0-100.0) fL RDW 18.3 H (11.5-15.5) % Neutrophils # 8.4 H (1.3-7.7) k/uL Lymphocytes # 0.7 L (1.0-4.8) k/uL Sodium 136 L (137-145) mmol/L Creatinine 0.52 L (0.66-1.25) mg/dL Calcium 8.0 L (8.4-10.2) mg/dL Total Protein 5.5 L (6.3-8.2) g/dL Albumin 2.8 L (3.5-5.0) g/dL Microbiology - Last 24 Hours (Table) 11/13/21 21:57 Blood Culture - Preliminary Blood No Growth after 24 hours 11/13/21 21:50 Blood Culture - Preliminary Blood No Growth after 24 hours Assessment and Plan Assessment: 1 Septic shock secondary to septic knee joint. 2 Septic knee joint is strongly suspected. 3 Hypotension secondary to sepsis/septic shock, could also be related to pro found bradycardia intermittently. 4 Acute systolic congestive heart failure, ejection fraction of 45%. Likely exacerbated by fluid boluses given earlier for hypotension. 5 History of rheumatoid arthritis 6 History of obstructive sleep apnea syndrome 7 History of dyslipidemia 8 Chronic back pain, patient has a pain pump in place. 9 History of ulcerative colitis. 10 History of nephrolithiasis. 11 History of left knee arthroplasty. Plan: The patient was seen and evaluated Labs and microbiology reviewed Remains on vancomycin and cefepime for now Stable and on room air Remains on dopamine Echocardiogram pending Off norepinephrine We will continue to follow I have personally seen and examined the patient, performed the documentation and the assessment and plan as written. Number of minutes spent on the visit: 10.
--- NOTE | 2021-11-15 14:26 | P.PN ---
Subjective Progress Note Date: 11/15/21 This is a 71-year-old male who is admitted for altered mental status. Orthopedics is consulted for evaluation of his left knee. His history is that he underwent open lateral release and medial retinaculum imbrication for recurrent dislocation of the left patella in June 2021. Patient subsequently developed an infection of the left knee and underwent irrigation and debridement of the left knee on 07/17/2021. Patient has a known chronic infection of the left knee and is on chronic suppressive antibiotic therapy. Patient has been closely followed as an outpatient for this. Patient most recently underwent closure of his left knee wound in the operating room about two weeks ago. Patient states that he presented to the emergency room on 11/13/2021 due to altered mental status and has been closely monitored in the ICU for bradycardia. Patient is seen and evaluated at bedside today with Dr. Shen Del Rosario and states that his knee is feeling well. Patient denies any new complaints today. Patient's past medical history significant for hyperlipidemia, hypertension, rheumatoid arthritis and sleep apnea. Objective - Vital Signs Vital signs: Vital Signs Temp 98.3 F 11/15/21 08:00 Pulse 59 L 11/15/21 13:00 Resp 14 11/15/21 13:00 BP 113/67 11/15/21 13:00 Pulse Ox 95 11/15/21 13:00 Intake & Output 11/14/21 11/15/21 11/15/21 18:59 06:59 18:59 Intake Total 1451.701 6722 1476.723 Output Total 3050 950 275 Balance -1056.491 870 5943.723 Weight 120 kg Intake: IV 1840 920 861 Cefepime 2 gm In Sodium 100 100 100 Chloride 0.9% 100 ml @ 25 mls/hr IVPB Q8HR [facility] Rx# :[id number] Sodium Chloride 0.9% 1, 690 320 260 000 ml @ 50 mls/hr IV . Q20H [facility] Rx#:[id number] Vancomycin 1,750 mg In 1000 500 501 Sodium Chloride 0.9% 500 ml 500 ml @ 167 mls/hr IVPB ONCE ONE Rx#: [id number] cefTRIAXone 1 gm In 50 Sodium Chloride 0.9% 50 ml @ 100 mls/hr IVPB Q12HR [facility] Rx#:[id number] Intake, IV Titration 153.331 125.723 Amount DOPamine DRIP 800 mg In 125.723 Dextrose/Water 1 250ml. bag @ 2.5 MCG/KG/MIN 5. 316 mls/hr IV .Q24H [facility] Rx#:[id number] Norepinephrine 4 mg In 23.331 Sodium Chloride 0.9% 250 ml @ 0.05 MCG/KG/MIN 21. 602 mls/hr IV .[id number] [facility] Rx#:[id number] Sodium Chloride 0.9% 1, 130 000 ml @ 130 mls/hr IV . Q7H42M [facility] Rx#:[id number] Oral 0 480 490 Output: Urine 3050 950 275 Other: Voiding Method Urinal Urinal Urinal # Voids 0 0 0 ABP, PAP, CO, CI - Last Documented Arterial Blood Pressure 104/71 - Exam On exam patient is sitting up comfortably in bed in no acute distress. Patient is alert and oriented 3. Incision over the left knee is healing without surrounding erythema, drainage or warmth. There is mild swelling of the left knee. Calf is soft and nontender to palpation. Sensation intact. Neurovascular status and circulatory status are intact. - Labs CBC & Chem 7: 11/15/21 05:00 11/15/21 05:00 Labs: Abnormal Lab Results - Last 24 Hours (Table) 11/15/21 11/15/21 Range/Units 05:00 05:00 RBC 3.42 L (4.30-5.90) m/uL Hgb 11.3 L (13.0-17.5) gm/dL Hct 34.7 L (39.0-53.0) % MCV 101.7 H (80.0-100.0) fL RDW 18.3 H (11.5-15.5) % Neutrophils # 8.4 H (1.3-7.7) k/uL Lymphocytes # 0.7 L (1.0-4.8) k/uL Sodium 136 L (137-145) mmol/L Creatinine 0.52 L (0.66-1.25) mg/dL Calcium 8.0 L (8.4-10.2) mg/dL Total Protein 5.5 L (6.3-8.2) g/dL Albumin 2.8 L (3.5-5.0) g/dL Microbiology - Last 24 Hours (Table) 11/13/21 21:57 Blood Culture - Preliminary Blood No Growth after 24 hours 11/13/21 21:50 Blood Culture - Preliminary Blood No Growth after 24 hours Assessment and Plan (1) Altered mental status Current Visit: Yes Status: Acute Code(s): R41.82 - ALTERED MENTAL STATUS, UNSPECIFIED SNOMED Code(s): 702764265 Plan: Patient has a known chronic infection of the left knee and is on chronic suppressive antibiotic therapy. Patient is afebrile and well-appearing. WBC is within normal limits. At this time there is no indication for surgical intervention. Patient may continue to follow up as an outpatient.
[2021-11-15] MEDS ORDERED: VANCOMYCIN TROUGH DUE 1 EACH MISC MISCELLANE ONE (16:00)
[2021-11-15] MEDS: rOPINIRole HCL 4 MG TABLET PO SCH (21:15)
--- NOTE | 2021-11-15 22:14 | P.PN ---
Subjective Progress Note Date: 11/15/21 Principal diagnosis: Fever Patient is a 71-year-old male with a past medical history significant for left knee infection with Enterobacter and this patient presented to the hospital with mental status changes and fever. On today's evaluation that is, 11/15/2021 the patient denies having any fever or any chills, the patient denies having any chest pain shortness of breath or cough no nausea no vomiting no abdominal pain or any worsening pain to the left knee area no diarrhea Objective - Vital Signs Vital signs: Vital Signs Temp 98.3 F 11/15/21 08:00 Pulse 46 L 11/15/21 11:00 Resp 13 11/15/21 11:00 BP 118/83 11/15/21 11:00 Pulse Ox 99 11/15/21 11:00 Intake & Output 11/14/21 11/15/21 11/15/21 18:59 06:59 18:59 Intake Total 8353.127 4731 1229.723 Output Total 3050 950 275 Balance -1056.669 450 954.723 Weight 120 kg Intake: IV 1840 920 614 Cefepime 2 gm In Sodium 100 100 100 Chloride 0.9% 100 ml @ 25 mls/hr IVPB Q8HR [facility] Rx# :[id number] Sodium Chloride 0.9% 1, 690 320 180 000 ml @ 50 mls/hr IV . Q20H [facility] Rx#:[id number] Vancomycin 1,750 mg In 1000 500 334 Sodium Chloride 0.9% 500 ml 500 ml @ 167 mls/hr IVPB ONCE ONE Rx#: [id number] cefTRIAXone 1 gm In 50 Sodium Chloride 0.9% 50 ml @ 100 mls/hr IVPB Q12HR [facility] Rx#:[id number] Intake, IV Titration 153.331 125.723 Amount DOPamine DRIP 800 mg In 125.723 Dextrose/Water 1 250ml. bag @ 2.5 MCG/KG/MIN 5. 316 mls/hr IV .Q24H [facility] Rx#:[id number] Norepinephrine 4 mg In 23.331 Sodium Chloride 0.9% 250 ml @ 0.05 MCG/KG/MIN 21. 602 mls/hr IV .[id number] [facility] Rx#:[id number] Sodium Chloride 0.9% 1, 130 000 ml @ 130 mls/hr IV . Q7H42M [facility] Rx#:[id number] Oral 0 480 490 Output: Urine 3050 950 275 Other: Voiding Method Urinal Urinal Urinal # Voids 0 0 0 ABP, PAP, CO, CI - Last Documented Arterial Blood Pressure 104/71 - Exam GENERAL DESCRIPTION: An elderly male lying in bed in no distress RESPIRATORY SYSTEM: Unlabored breathing , decreased breath sounds at bases HEART: S1 S2 regular rate and rhythm , ABDOMEN: Soft , no tenderness EXTREMITIES: No edema feet - Labs CBC & Chem 7: 11/15/21 05:00 11/15/21 05:00 Labs: Abnormal Lab Results - Last 24 Hours (Table) 11/15/21 11/15/21 Range/Units 05:00 05:00 RBC 3.42 L (4.30-5.90) m/uL Hgb 11.3 L (13.0-17.5) gm/dL Hct 34.7 L (39.0-53.0) % MCV 101.7 H (80.0-100.0) fL RDW 18.3 H (11.5-15.5) % Neutrophils # 8.4 H (1.3-7.7) k/uL Lymphocytes # 0.7 L (1.0-4.8) k/uL Sodium 136 L (137-145) mmol/L Creatinine 0.52 L (0.66-1.25) mg/dL Calcium 8.0 L (8.4-10.2) mg/dL Total Protein 5.5 L (6.3-8.2) g/dL Albumin 2.8 L (3.5-5.0) g/dL Microbiology - Last 24 Hours (Table) 11/13/21 21:57 Blood Culture - Preliminary Blood No Growth after 24 hours 11/13/21 21:50 Blood Culture - Preliminary Blood No Growth after 24 hours Assessment and Plan (1) Sepsis Current Visit: Yes Status: Acute Code(s): A41.9 - SEPSIS, UNSPECIFIED ORGANISM SNOMED Code(s): 10640197 Plan: 1patient presented to hospital with sepsis in this patient did have a fever elevated white count and mental status changes in this patient currently undergoing treatment for his left knee septic arthritis with the previous culture positive for Enterobacter and Peptostreptococcus has been treated with washout of the knee and is currently on suppressive oral antibiotic therapy patient currently do not have any other obvious focus of infection no suspicious for pneumonia urine was negative abdominal soft local examination and possible concern for left knee infection. 2patient to continue with the vancomycin pharmacy to dose and cefepime while waiting for the cultures to finalize 3local wound care to continue the knee with [place] followed by shanel tello Time with Patient: Less than 30
[2021-11-16] MEDS: CEFEPIME 2 GM in SODIUM CHLORIDE 0.9% 100 ML IVPB SCH ×3 (00:37→16:57)
[2021-11-16] MEDS: VANCOMYCIN 1,500 MG in SODIUM CHLORIDE 0.9% 250 ML IVPB SCH ×3 (02:25→17:34)
[2021-11-16] MEDS: SODIUM CHLORIDE 0.9% 1,000 ML IV SCH (03:43)
[2021-11-16 06:06] LABS: ALT 19 U/L (4-49); AST 21 U/L (17-59); African American GFR (CKD) >90 (>60 ml/min/1.73 sqM); Albumin 2.7 g/dL (3.5-5.0); Alkaline Phosphatase 47 U/L (38-126); Anion Gap 4 mmol/L; Blood Urea Nitrogen 12 mg/dL (9-20); Calcium 7.8 mg/dL (8.4-10.2); Carbon Dioxide 27 mmol/L (22-30); Chloride 107 mmol/L (98-107); Glucose 83 mg/dL (74-99); Non-African American GFR(CKD) >90 (>60 ml/min/1.73 sqM); Potassium 3.9 mmol/L (3.5-5.1); Sodium 138 mmol/L (137-145); Total Bilirubin 0.3 mg/dL (0.2-1.3); Total Protein 5.4 g/dL (6.3-8.2)
--- NOTE | 2021-11-16 08:23 | P.PN ---
Subjective Principal diagnosis: Sepsis with altered mental status The patient 71-year-old white male with known history of tremor rheumatoid art hritis with history of postop knee infection. Multiple consultants are noted. The patient seems to be stable today and is answering questions appropriately. He would like to restart [place] intermittently for his pain. We will withhold some methotrexate and Imuran today related to infection. The patient expressed me that he can be transferred out of ICU which I agree with. We need to ascertain antibiotic treatment. We will defer to infectious disease. Objective - Vital Signs Vital signs: Vital Signs Temp 98.1 F 11/16/21 08:00 Pulse 65 11/16/21 08:00 Resp 13 11/16/21 08:00 BP 128/83 11/16/21 08:00 Pulse Ox 95 11/16/21 08:00 Intake & Output 11/15/21 11/16/21 11/16/21 18:59 06:59 18:59 Intake Total 2108.723 1032 320 Output Total 275 950 200 Balance 1833.723 82 120 Weight 122.6 kg Intake: IV 1243 782 70 Cefepime 2 gm In Sodium 175 125 Chloride 0.9% 100 ml @ 25 mls/hr IVPB Q8HR [facility] Rx# :[id number] Sodium Chloride 0.9% 1, 400 240 70 000 ml @ 50 mls/hr IV . Q20H [facility] Rx#:[id number] Vancomycin 1,500 mg In 250 Sodium Chloride 0.9% 250 ml @ 125 mls/hr IVPB Q8H [facility] Rx#:[id number] Vancomycin 1,750 mg In 668 167 Sodium Chloride 0.9% 500 ml 500 ml @ 167 mls/hr IVPB ONCE ONE Rx#: [id number] Intake, IV Titration 125.723 Amount DOPamine DRIP 800 mg In 125.723 Dextrose/Water 1 250ml. bag @ 2.5 MCG/KG/MIN 5. 316 mls/hr IV .Q24H [facility] Rx#:[id number] Oral 740 250 250 Output: Urine 275 950 200 Other: Voiding Method Urinal # Voids 0 # Bowel Movements 1 1 ABP, PAP, CO, CI - Last Documented Arterial Blood Pressure 104/71 - Constitutional General appearance: Present: no acute distress - EENT Eyes: Absent: abnormal pupil - Neck Neck: Absent: lymphadenopathy - Respiratory Respiratory: bilateral: CTA - Cardiovascular Rhythm: regular Heart sounds: normal: S1, S2 Abnormal Heart Sounds: Absent: S3 Gallop - Gastrointestinal General gastrointestinal: Present: soft. Absent: tenderness - Neurologic Neurologic: Present: CNII-XII intact - Labs CBC & Chem 7: 11/15/21 05:00 11/16/21 05:25 Labs: Abnormal Lab Results - Last 24 Hours (Table) 11/16/21 Range/Units 05:25 Creatinine 0.51 L (0.66-1.25) mg/dL Calcium 7.8 L (8.4-10.2) mg/dL Total Protein 5.4 L (6.3-8.2) g/dL Albumin 2.7 L (3.5-5.0) g/dL Microbiology - Last 24 Hours (Table) 11/13/21 21:57 Blood Culture - Preliminary Blood No Growth after 48 hours 11/13/21 21:50 Blood Culture - Preliminary Blood No Growth after 48 hours Assessment and Plan (1) Altered mental status Current Visit: Yes Status: Acute Code(s): R41.82 - ALTERED MENTAL STATUS, UNSPECIFIED SNOMED Code(s): 565146753 (2) Effusion, left knee Current Visit: Yes Status: Acute Code(s): M25.462 - EFFUSION, LEFT KNEE SNOMED Code(s): 955016058751715 (3) Infection of left knee Current Visit: Yes Status: Acute Priority: Medium Code(s): M00.9 - PYOGENIC ARTHRITIS, UNSPECIFIED SNOMED Code(s): 521832928 (4) Sepsis Current Visit: Yes Status: Acute Code(s): A41.9 - SEPSIS, UNSPECIFIED ORGANISM SNOMED Code(s): 89569967 (5) Rheumatoid arthritis Current Visit: No Status: Acute Code(s): M06.9 - RHEUMATOID ARTHRITIS, UNSPECIFIED SNOMED Code(s): 09029670 Plan: Go ahead and give [place] when necessary for low level pain. Check CBC and CMP in a.m. Appreciate multiple consultants input. Continue current regimen of IV antibiotics.
--- NOTE | 2021-11-16 08:25 | P.PN ---
Subjective History of Present Illness: The patient is a 71-year-old male who presented with left knee discomfort and was found to have an infected knee with sepsis. He has underwent surgery on that knee in June of last year. Cardiology consultation was requested because of sinus bradycardia. While in the hospital in June of last year he had sinus bradycardia with a rate down to the 30s but no associated long pauses. He had an echocardiogram during that admission that showed an ejection fraction of 45-50% with mild mitral and tricuspid regurgitation. He subsequently underwent an event monitor that showed sinus mechanism with no significant bradycardia with one episode of nonsustained atrial tachycardia and an episode of paroxysmal atrial fibrillation but no pauses. Patient denies any chest discomfort, palpitations or dyspnea. He feels dizzy with change of position. In the ICU he had bradycardia and became quite somnolent. Of note that the patient has obstructive sleep apnea and uses his CPAP at home. He has no peripheral edema, PND or orthopnea. He has chronic back pain and has a pain pump. He has a history of hyperlipidemia and hypertension, he is a nondiabetic nonsmoker. His medication include simvastatin 80 mg daily, ramipril 10 mg daily, Cardura 4 mg twice a day, [place], methotrexate, Imuran 11/15 Patient seen and examined. Patient denies any chest pain or pressure. Still remains on dopamine at 2.5 with heart rates in the 50s. Telemetry reviewed with frequent PACs, no pauses greater than 2 seconds. Patient denies any lightheadedness or dizziness. He is off of vasopressors. TSH noted to be normal. Echo pending from this morning. 11/16 Patient seen and examined. Patient states he is feeling well. He denies any chest pain or pressure. Still does have significant left lower extremity swelling. Echo shows ejection fraction 40-45% without significant valvular disease however valves not well visualized. He has had a good diet and appetite. Has been getting IV fluids. Previous echo 06/23/2021 showed EF 45- 50%. Physical Examination: vitals reviewed Head: Normocephalic. Eyes: Sclerae nonicteric. Neck: Good carotid upstroke, no bruit, no jugular venous distention. Lungs: Clear to auscultation. Heart: Regular rate and rhythm, S1-S2, no S3, no rub. No murmur. Abdomen: Soft nontender, positive bowel sounds no organomegaly. Extremities: Dressing on the left knee, 1+ edema on left Impression: 1. Infected left knee, workup in progress 2. Episodes of sinus bradycardia could be exacerbated by apnea. The patient has a history of obstructive sleep apnea. His event monitor showed brief episod es of paroxysmal atrial fibrillation 3. History of hypertension 4. Hyperlipidemia 5. Chronic back pain with pain pump 6. Obstructive sleep apnea 7. Prior history of mild cardiomyopathy of unclear etiology 8. Mild cardiomyopathy EF 40-45%, previous 45-50% 9. Chronic systolic heart failure Plan: Heart rates have remained stable off of dopamine. No current indication for permanent pacemaker. He does have significant lower extremity edema and suspect mainly related to venous insufficiency and infection however may be some additional component of heart failure. We will give dose of Lasix and monitor response. Further treatment of chronic left knee infection per infectious disease, orthopedic surgery. No significant regurgitation noted to suggest any endocarditis. Objective - Vital Signs Vital signs: Vital Signs Temp 98.1 F 11/16/21 08:00 Pulse 65 11/16/21 08:00 Resp 13 11/16/21 08:00 BP 128/83 11/16/21 08:00 Pulse Ox 95 11/16/21 08:00 Intake & Output 11/15/21 11/16/21 11/16/21 18:59 06:59 18:59 Intake Total 2108.723 1032 320 Output Total 275 950 200 Balance 1833.723 82 120 Weight 122.6 kg Intake: IV 1243 782 70 Cefepime 2 gm In Sodium 175 125 Chloride 0.9% 100 ml @ 25 mls/hr IVPB Q8HR [facility] Rx# :[id number] Sodium Chloride 0.9% 1, 400 240 70 000 ml @ 50 mls/hr IV . Q20H [facility] Rx#:[id number] Vancomycin 1,500 mg In 250 Sodium Chloride 0.9% 250 ml @ 125 mls/hr IVPB Q8H [facility] Rx#:[id number] Vancomycin 1,750 mg In 668 167 Sodium Chloride 0.9% 500 ml 500 ml @ 167 mls/hr IVPB ONCE ONE Rx#: [id number] Intake, IV Titration 125.723 Amount DOPamine DRIP 800 mg In 125.723 Dextrose/Water 1 250ml. bag @ 2.5 MCG/KG/MIN 5. 316 mls/hr IV .Q24H [facility] Rx#:[id number] Oral 740 250 250 Output: Urine 275 950 200 Other: Voiding Method Urinal # Voids 0 # Bowel Movements 1 1 ABP, PAP, CO, CI - Last Documented Arterial Blood Pressure 104/71 - Labs CBC & Chem 7: 11/15/21 05:00 11/16/21 05:25 Labs: Abnormal Lab Results - Last 24 Hours (Table) 11/16/21 Range/Units 05:25 Creatinine 0.51 L (0.66-1.25) mg/dL Calcium 7.8 L (8.4-10.2) mg/dL Total Protein 5.4 L (6.3-8.2) g/dL Albumin 2.7 L (3.5-5.0) g/dL Microbiology - Last 24 Hours (Table) 11/13/21 21:57 Blood Culture - Preliminary Blood No Growth after 48 hours 11/13/21 21:50 Blood Culture - Preliminary Blood No Growth after 48 hours
--- NOTE | 2021-11-16 08:32 | P.PN ---
Subjective Progress Note Date: 11/16/21 11/16/2021: This is a 71-year-old male who is admitted for altered mental status. Orthopedics is following for evaluation of his left knee. Patient is seen and evaluated at bedside today. Patient states that he is not having any pain in the left knee and he denies any new complaints today. Prior history: This is a 71-year-old male who is admitted for altered mental status. Orthopedics is consulted for evaluation of his left knee. His history is that he underwent open lateral release and medial retinaculum imbrication for recurrent dislocation of the left patella in June 2021. Patient subseq uently developed an infection of the left knee and underwent irrigation and debridement of the left knee on 07/17/2021. Patient has a known chronic infection of the left knee and is on chronic suppressive antibiotic therapy. Patient has been closely followed as an outpatient for this. Patient most recently underwent closure of his left knee wound in the operating room about two weeks ago. Patient states that he presented to the emergency room on 11/13/2021 due to altered mental status and has been closely monitored in the ICU for bradycardia. Patient is seen and evaluated at bedside today with Dr. Shen Del Rosario and states that his knee is feeling well. Patient denies any new complaints today. Patient's past medical history significant for hyperlipidemia, hypertension, rheumatoid arthritis and sleep apnea. Objective - Vital Signs Vital signs: Vital Signs Temp 98.1 F 11/16/21 08:00 Pulse 65 11/16/21 08:00 Resp 13 11/16/21 08:00 BP 128/83 11/16/21 08:00 Pulse Ox 95 11/16/21 08:00 Intake & Output 11/15/21 11/16/21 11/16/21 18:59 06:59 18:59 Intake Total 2108.723 1032 320 Output Total 275 950 200 Balance 1833.723 82 120 Weight 122.6 kg Intake: IV 1243 782 70 Cefepime 2 gm In Sodium 175 125 Chloride 0.9% 100 ml @ 25 mls/hr IVPB Q8HR [facility] Rx# :[id number] Sodium Chloride 0.9% 1, 400 240 70 000 ml @ 50 mls/hr IV . Q20H [facility] Rx#:[id number] Vancomycin 1,500 mg In 250 Sodium Chloride 0.9% 250 ml @ 125 mls/hr IVPB Q8H [facility] Rx#:[id number] Vancomycin 1,750 mg In 668 167 Sodium Chloride 0.9% 500 ml 500 ml @ 167 mls/hr IVPB ONCE ONE Rx#: [id number] Intake, IV Titration 125.723 Amount DOPamine DRIP 800 mg In 125.723 Dextrose/Water 1 250ml. bag @ 2.5 MCG/KG/MIN 5. 316 mls/hr IV .Q24H [facility] Rx#:[id number] Oral 740 250 250 Output: Urine 275 950 200 Other: Voiding Method Urinal # Voids 0 # Bowel Movements 1 1 ABP, PAP, CO, CI - Last Documented Arterial Blood Pressure 104/71 - Exam On exam patient is sitting up comfortably in bed in no acute distress. Patient is alert and oriented 3. Incision over the left knee is healing without surrounding erythema, drainage or warmth. There is mild swelling of the left knee. Calf is soft and nontender to palpation. Sensation intact. Neurovascular status and circulatory status are intact. - Labs CBC & Chem 7: 11/15/21 05:00 11/16/21 05:25 Labs: Abnormal Lab Results - Last 24 Hours (Table) 11/16/21 Range/Units 05:25 Creatinine 0.51 L (0.66-1.25) mg/dL Calcium 7.8 L (8.4-10.2) mg/dL Total Protein 5.4 L (6.3-8.2) g/dL Albumin 2.7 L (3.5-5.0) g/dL Microbiology - Last 24 Hours (Table) 11/13/21 21:57 Blood Culture - Preliminary Blood No Growth after 48 hours 11/13/21 21:50 Blood Culture - Preliminary Blood No Growth after 48 hours Assessment and Plan (1) Altered mental status Current Visit: Yes Status: Acute Code(s): R41.82 - ALTERED MENTAL STATUS, UNSPECIFIED SNOMED Code(s): 833181112 Plan: Patient has a known chronic infection of the left knee and is on chronic suppressive antibiotic therapy. Patient is afebrile and well-appearing. WBC is within normal limits. At this time there is no indication for surgical intervention. Patient may continue to follow up as an outpatient.
[2021-11-16] MEDS: HEPARIN SODIUM,PORCINE/PF 5,000 UNIT/0.5 ML SYRINGE SQ SCH ×2 (09:29→20:19)
[2021-11-16] MEDS: FUROSEMIDE 10 MG/ML 4 ML VIAL IV SCH (09:29)
[2021-11-16] MEDS: FAMOTIDINE 20 MG TAB PO SCH ×2 (09:36→20:20)
[2021-11-16] MEDS: GABAPENTIN 300 MG CAP PO SCH ×3 (09:36→20:20)
[2021-11-16] MEDS: FERROUS SULFATE 325 MG TAB PO SCH (09:36)
[2021-11-16] MEDS: BACLOFEN 10 MG TAB PO SCH ×3 (09:37→20:20)
[2021-11-16] MEDS: FOLIC ACID 1 MG TAB PO SCH (09:37)
[2021-11-16] MEDS: DOXAZOSIN 4 MG TAB PO SCH ×2 (09:37→20:20)
[2021-11-16] MEDS: allopurinoL 300 MG TAB PO SCH (09:37)
[2021-11-16] MEDS: ATORVASTATIN 40 MG TAB PO SCH (09:37)
[2021-11-16] MEDS: CALCIUM CARBONATE 500 MG CHEWABLE PO SCH (09:38)
[2021-11-16] MEDS: DOPamine DRIP 800 MG in DEXTROSE/WATER 1 250ML.BAG IV SCH (09:45)
--- NOTE | 2021-11-16 09:46 | P.PN ---
Subjective Progress Note Date: 11/16/21 This is a 71-year-old white male with history of previous left total knee arthroplasty, and recurrent episodes of infection of the left knee. His last surgery on his left knee was back in June of 2021, and since then the patient has been having lots of issues and recurrent infections related to the l eft knee. He is being followed by orthopedics, he is also being followed by infectious disease on outpatient basis. Patient is known to have history of sinus bradycardia, chronic, history of hypertension, history of chronic back pain and he has a pain pump implanted in his left lower quadrant. History of obstructive sleep apnea maintained on CPAP, and he does have history of mild cardiomyopathy with ejection fraction of 45-50%. Patient was brought into the ER yesterday mostly with complaints of discomfort in the left knee, fever, and according to his the patient has been confused. Patient was initially admitted to the regular medical floor, he was started on antibiotics for presump tive septic knee joint, and antibiotics included vancomycin and Rocephin. Patient had extremely low blood pressure while on the medical floor, and he received 3-1/2 L of fluids, blood pressure remained low. Hence I accepted the patient to be transferred to the ICU, started him on a low dose of levo fed, however after I evaluated the patient this morning, I discontinued norepinephrine and started the patient on dopamine at 2.5 mcg/kg/m. The patient was given mostly because the patient was noted to be quite bradycardic with heart rate in the 30s, and intermittently he was noted to have intermittent episodes of apnea, rather brief, but the patient wakes up in few seconds on his own. During these episodes the patient was also noted to be quite bradycardic. Then I recommended a central line to be placed, and I recommended an arterial line which was done shortly after I evaluated the patient. Seemed to improve with dopamine instead of norepinephrine, heart rate came up nicely to the 50s, and his blood pressure responded well to dopamine. Chest x-ray post central line placement showed evidence of interstitial edema, remind you the patient received lots of fluids since last night, and I recommended a dose of Lasix 20 mg to be given. Again the patient is known to have history of LV dysfunction. The patient is seen today 11/15/2021 in follow-up in the intensive care unit. He is currently sitting up in bed. Awake and alert in no acute distress. He is maintaining good O2 saturations in the 90s on room air. He's has normal saline at 50 MLS per hour. He remains on a dopamine drip at 2.5 mcg/kg/m. He is on antibiotics in the form of vancomycin and cefepime. Blood cultures are revealing no growth to date. White count 10.0. Hemoglobin 11.3. Sodium 136. Potassium 4.0. Bicarb 26. BUN 14. Creatinine 0.5 daily. He has been hemodynamically stable. Not requiring pressors. Patient is seen today 11/16/2021 in follow-up on the intensive care unit. He is awake and alert in no acute distress. Resting comfortably in bed. He is maintaining good O2 saturation 90s on room air. He has normal saline running at 70 ML's per hour. He is continued on antibiotics in the form of vancomycin and cefepime. Blood cultures reveal no growth. Sodium 138. Potassium 3.9. BUN 12. Creatinine 0.51. He continues to have some episodes of bradycardia. Otherwise he's been hemodynamically stable. Afebrile. Objective - Vital Signs Vital signs: Vital Signs Temp 98.1 F 11/16/21 08:00 Pulse 57 L 11/16/21 09:00 Resp 10 L 11/16/21 09:00 BP 123/76 11/16/21 09:00 Pulse Ox 95 11/16/21 08:00 Intake & Output 11/15/21 11/16/21 11/16/21 18:59 06:59 18:59 Intake Total 2108.723 1032 720 Output Total 275 950 425 Balance 1833.723 82 295 Weight 122.6 kg Intake: IV 1243 782 220 Cefepime 2 gm In Sodium 175 125 25 Chloride 0.9% 100 ml @ 25 mls/hr IVPB Q8HR [facility] Rx# :[id number] Sodium Chloride 0.9% 1, 400 240 70 000 ml @ 50 mls/hr IV . Q20H [facility] Rx#:[id number] Vancomycin 1,500 mg In 250 125 Sodium Chloride 0.9% 250 ml @ 125 mls/hr IVPB Q8H [facility] Rx#:[id number] Vancomycin 1,750 mg In 668 167 Sodium Chloride 0.9% 500 ml 500 ml @ 167 mls/hr IVPB ONCE ONE Rx#: [id number] Intake, IV Titration 125.723 Amount DOPamine DRIP 800 mg In 125.723 Dextrose/Water 1 250ml. bag @ 2.5 MCG/KG/MIN 5. 316 mls/hr IV .Q24H [facility] Rx#:[id number] Oral 740 250 500 Output: Urine 275 950 425 Other: Voiding Method Urinal # Voids 0 # Bowel Movements 1 1 ABP, PAP, CO, CI - Last Documented Arterial Blood Pressure 104/71 - Exam GENERAL EXAM: Alert, very pleasant 71-year-old male patient, on room air, comfortable in no apparent distress. HEAD: Normocephalic. EYES: Normal reaction of pupils, equal size. NOSE: Clear with pink turbinates. THROAT: No erythema or exudates. NECK: No masses, no JVD. CHEST: No chest wall deformity. LUNGS: Equal air entry with no crackles, wheeze, rhonchi or dullness. CVS: S1 and S2 normal with no audible murmur, regular rhythm. ABDOMEN: No hepatosplenomegaly, normal bowel sounds, no guarding or rigidity. SPINE: No scoliosis or deformity SKIN: No rashes CENTRAL NERVOUS SYSTEM: No focal deficits, tone is normal in all 4 extremities. EXTREMITIES: Left knee edematous and open wound. There is no peripheral edema. No clubbing, no cyanosis. Peripheral pulses are intact. - Labs CBC & Chem 7: 11/15/21 05:00 11/16/21 05:25 Labs: Abnormal Lab Results - Last 24 Hours (Table) 11/16/21 Range/Units 05:25 Creatinine 0.51 L (0.66-1.25) mg/dL Calcium 7.8 L (8.4-10.2) mg/dL Total Protein 5.4 L (6.3-8.2) g/dL Albumin 2.7 L (3.5-5.0) g/dL Microbiology - Last 24 Hours (Table) 11/13/21 21:57 Blood Culture - Preliminary Blood No Growth after 48 hours 11/13/21 21:50 Blood Culture - Preliminary Blood No Growth after 48 hours Assessment and Plan Assessment: 1 Septic shock secondary to septic knee joint. Recovered. Off pressors. Cultures reveal no growth. He remains on vancomycin and cefepime. 2 Septic knee joint is strongly suspected. 3 Hypotension secondary to sepsis/septic shock, could also be related to profound bradycardia intermittently. 4 Acute systolic congestive heart failure, ejection fraction of 45%. 5 History of rheumatoid arthritis 6 History of obstructive sleep apnea syndrome 7 History of dyslipidemia 8 Chronic back pain, patient has a pain pump in place. 9 History of ulcerative colitis. 10 History of nephrolithiasis. 11 History of left knee arthroplasty. Plan: The patient was seen and evaluated Labs and microbiology reviewed Remains on vancomycin and cefepime for now Stable and on room air Stable off dopamine, off norepinephrine Transfer to the regular medical floor with telemetry We will continue to follow I have personally seen and examined the patient, performed the documentation and the assessment and plan as written. Number of minutes spent on the visit: 10.
[2021-11-16] MEDS: rOPINIRole HCL 4 MG TABLET PO SCH (20:20)
[2021-11-17] MEDS: CEFEPIME 2 GM in SODIUM CHLORIDE 0.9% 100 ML IVPB SCH ×2 (02:10→08:14)
[2021-11-17] MEDS: VANCOMYCIN 1,500 MG in SODIUM CHLORIDE 0.9% 250 ML IVPB SCH ×2 (03:25→10:48)
[2021-11-17 07:24] VITALS: BP 121/77; PULSE 62; RESP 17; TEMP 98.2
[2021-11-17] MEDS: DOPamine DRIP 800 MG in DEXTROSE/WATER 1 250ML.BAG IV SCH (08:10)
[2021-11-17] MEDS: FUROSEMIDE 10 MG/ML 4 ML VIAL IV SCH (08:13)
[2021-11-17] MEDS: HEPARIN SODIUM,PORCINE/PF 5,000 UNIT/0.5 ML SYRINGE SQ SCH (08:13)
[2021-11-17] MEDS: FOLIC ACID 1 MG TAB PO SCH (08:13)
[2021-11-17] MEDS: ATORVASTATIN 40 MG TAB PO SCH (08:14)
[2021-11-17] MEDS: BACLOFEN 10 MG TAB PO SCH (08:14)
[2021-11-17] MEDS: FERROUS SULFATE 325 MG TAB PO SCH (08:14)
[2021-11-17] MEDS: FAMOTIDINE 20 MG TAB PO SCH (08:14)
[2021-11-17] MEDS: allopurinoL 300 MG TAB PO SCH (08:14)
[2021-11-17] MEDS: GABAPENTIN 300 MG CAP PO SCH (08:14)
[2021-11-17] MEDS: CALCIUM CARBONATE 500 MG CHEWABLE PO SCH (08:15)
[2021-11-17] MEDS: DOXAZOSIN 4 MG TAB PO SCH (08:15)
--- NOTE | 2021-11-17 08:20 | P.PN ---
Subjective Progress Note Date: 11/17/21 Principal diagnosis: Chronic knee infection. 11/17/2021: This is a 71-year-old male who is admitted for altered mental status. Orthopedics is following for evaluation of his left knee. Patient is seen and evaluated at bedside today. Patient states that he is not having any pain in the left knee and he denies any new complaints today. Vital signs and labs are stable. Prior history: This is a 71-year-old male who is admitted for altered mental status. Orthopedics is consulted for evaluation of his left knee. His history is that he underwent open lateral release and medial retinaculum imbrication for recurrent dislocation of the left patella in June 2021. Patient subsequently developed an infection of the left knee and underwent irrigation and debridement of the left knee on 07/17/2021. Patient has a known chronic infection of the left knee and is on chronic suppressive antibiotic therapy. Patient has been closely followed as an outpatient for this. Patient most recently underwent closure of his left knee wound in the operating room about two weeks ago. Patient states that he presented to the emergency room on 11/13/2021 due to altered mental status and has been closely monitored in the ICU for bradycardia. Patient is seen and evaluated at bedside today with Dr. Shen Del Rosario and states that his knee is feeling well. Patient denies any new complaints today. Patient's past medical history significant for hyperlipidemia, hypertension, rheumatoid arthritis and sleep apnea. Objective - Vital Signs Vital signs: Vital Signs Temp 98.2 F 11/17/21 07:22 Pulse 62 11/17/21 07:22 Resp 17 11/17/21 07:22 BP 121/77 11/17/21 07:22 Pulse Ox 94 L 11/17/21 07:22 Intake & Output 11/16/21 11/17/21 11/17/21 18:59 06:59 18:59 Intake Total 1170 Output Total 2725 Balance -1555 Intake: IV 420 Cefepime 2 gm In Sodium 100 Chloride 0.9% 100 ml @ 25 mls/hr IVPB Q8HR [facility] Rx# :[id number] Sodium Chloride 0.9% 1, 70 000 ml @ 50 mls/hr IV . Q20H [facility] Rx#:[id number] Vancomycin 1,500 mg In 250 Sodium Chloride 0.9% 250 ml @ 125 mls/hr IVPB Q8H [facility] Rx#:[id number] Oral 750 Output: Urine 2725 Other: Voiding Method Urinal # Voids 1 2 # Bowel Movements 1 ABP, PAP, CO, CI - Last Documented Arterial Blood Pressure 104/71 - Exam Exam of the left knee reveals that his dressing is clean, dry and intact. He has full foot and ankle motion. He is able lift the leg off the bed inde pendently with mild pain. Neurovascular status to the lower extremity is intact. - Labs CBC & Chem 7: 11/15/21 05:00 11/16/21 05:25 Labs: Microbiology - Last 24 Hours (Table) 11/13/21 21:57 Blood Culture - Preliminary Blood No Growth after 72 hours 11/13/21 21:50 Blood Culture - Preliminary Blood No Growth after 72 hours Assessment and Plan (1) Altered mental status Current Visit: Yes Status: Acute Code(s): R41.82 - ALTERED MENTAL STATUS, UNSPECIFIED SNOMED Code(s): 945307656 (2) Effusion, left knee Current Visit: Yes Status: Acute Code(s): M25.462 - EFFUSION, LEFT KNEE SNOMED Code(s): 725289236458427 (3) Infection of left knee Current Visit: Yes Status: Acute Priority: Medium Code(s): M00.9 - PYOGENIC ARTHRITIS, UNSPECIFIED SNOMED Code(s): 835446082 Plan: The clinical findings are discussed the patient. He may be discharged to home if cleared medically. Follow-up in our office as previously scheduled.
[2021-11-17] MEDS ORDERED: VANCOMYCIN TROUGH DUE 1 EACH MISC MISCELLANE ONE (09:00)
[2021-11-17 10:13] LABS: African American GFR (CKD) >90 (>60 ml/min/1.73 sqM); Non-African American GFR(CKD) >90 (>60 ml/min/1.73 sqM)
--- NOTE | 2021-11-17 10:44 | CDI ---
Documentation Clarification Form Date: 11/17/2021 10:30:19 AM From: Jenny Ren CCS, CCDS Admit Date: 11/14/2021 12:40:00 AM Patient Name: Pal Rose Visit Number: [id number] Discharge Date: ATTENTION: The Clinical Documentation Specialists (CDI) and [facility] Coding Staff appreciate your assistance in clarifying documentation. Please respond to the clarification below the line at the bottom and electronically sign. The CDI & [facility] Coding staff will review the response and follow-up if needed. Please note: Queries are made part of the Legal Health Record. If you have any questions, please contact the author of this message via ITS. Dr. Lorenzo Thomas: Conflicting documentation has been found in the medical record regarding the acuity of heart failure: Per the 11/14 Pulmonary Consult and subsequent Progress Notes: Acute Systolic CHF, EF 45%. Per the 11/16 Cardiology Progress Note: Chronic systolic heart failure. As attending physician, please provide clarification. History/Risk Factors per the 11/14 H/P: Hyperlipidemia, Hypertension, Rheumatoid Arthritis, Sleep Apnea, Ulcerative Colitis, Kidney stones, Nerve damage from electrocution 2007 resulting in tremors, back pain with implanted pain stimulator in lower back, Pain pump, status post Left TKA & subsequent wound infection with I&D. Former smoker. Clinical Indicators: Presented to the ED on 11/13 with Altered Mental Status & Fever, weakness, recurrent left knee infection. Admit with Altered mental status, Effusion Left Knee, Fever, Weakness, Postoperative Infection, Sepsis. 11/13 VS: T 103.1, P 111, R 22, BP 123/67, PO 97 RA, BMI: 34.7 11/13 LAB: WBC 16.2, Neutrophils 15.1, Lymphocytes 0.3; PT 12.4, INR 1.2; Na 132, Glucose 118, Calcium 7.7, CRP 2.4, Total Protein 6.0, Albumin 3.2 11/13 CXR: Atelectasis at the lung bases which appears slightly worse from last exam. 11/14 CXR: Prominent pulmonary vascular markings. Correlate for volume overload. 11/15 ECHO: Mild LVH, Left ventricular systolic function is mildly-moderately impaired with EF 40-45%. Treatment 11/13: O2 2Lnc, IV Na Cl 1,000 mls @ 999 mls/hr q1H, IV Na Cl 1,000 mls @ 50 mls/hr q20H, IV Rocephin 50 mls @ 100 mls/hr x1, IV Na Cl 1,000 mls @ 999 mls/hr q1H, IV Na Cl 500 mls @ 999 mls/hr q31M 11/14: IV Na Cl 500 mls @ 999 mls/hr q31M, Heparin 5,000 units sq q12H, IV Lasix 20 mg x1 11/16: IV Lasix 40 mg Daily Home meds include po Lasix 20 mg daily Please clarify which diagnosis is most appropriate: [ ] Acute Systolic CHF [ x ] Chronic Systolic CHF [ ] Acute on Chronic Systolic CHF [ ] Fluid Overload with or without CHF w/specified Acuity [ ] Other (please specify): [ ] Unable to determine (Template Last Revised: October 2020) MTDD
--- NOTE | 2021-11-17 11:25 | P.PN ---
Subjective Progress Note Date: 11/17/21 This is a 71-year-old white male with history of previous left total knee arthroplasty, and recurrent episodes of infection of the left knee. His last surgery on his left knee was back in June of 2021, and since then the patient has been having lots of issues and recurrent infections related to the l eft knee. He is being followed by orthopedics, he is also being followed by infectious disease on outpatient basis. Patient is known to have history of sinus bradycardia, chronic, history of hypertension, history of chronic back pain and he has a pain pump implanted in his left lower quadrant. History of obstructive sleep apnea maintained on CPAP, and he does have history of mild cardiomyopathy with ejection fraction of 45-50%. Patient was brought into the ER yesterday mostly with complaints of discomfort in the left knee, fever, and according to his the patient has been confused. Patient was initially admitted to the regular medical floor, he was started on antibiotics for presump tive septic knee joint, and antibiotics included vancomycin and Rocephin. Patient had extremely low blood pressure while on the medical floor, and he received 3-1/2 L of fluids, blood pressure remained low. Hence I accepted the patient to be transferred to the ICU, started him on a low dose of levo fed, however after I evaluated the patient this morning, I discontinued norepinephrine and started the patient on dopamine at 2.5 mcg/kg/m. The patient was given mostly because the patient was noted to be quite bradycardic with heart rate in the 30s, and intermittently he was noted to have intermittent episodes of apnea, rather brief, but the patient wakes up in few seconds on his own. During these episodes the patient was also noted to be quite bradycardic. Then I recommended a central line to be placed, and I recommended an arterial line which was done shortly after I evaluated the patient. Seemed to improve with dopamine instead of norepinephrine, heart rate came up nicely to the 50s, and his blood pressure responded well to dopamine. Chest x-ray post central line placement showed evidence of interstitial edema, remind you the patient received lots of fluids since last night, and I recommended a dose of Lasix 20 mg to be given. Again the patient is known to have history of LV dysfunction. The patient is seen today 11/15/2021 in follow-up in the intensive care unit. He is currently sitting up in bed. Awake and alert in no acute distress. He is maintaining good O2 saturations in the 90s on room air. He's has normal saline at 50 MLS per hour. He remains on a dopamine drip at 2.5 mcg/kg/m. He is on antibiotics in the form of vancomycin and cefepime. Blood cultures are revealing no growth to date. White count 10.0. Hemoglobin 11.3. Sodium 136. Potassium 4.0. Bicarb 26. BUN 14. Creatinine 0.5 daily. He has been hemodynamically stable. Not requiring pressors. Patient is seen today 11/16/2021 in follow-up on the intensive care unit. He is awake and alert in no acute distress. Resting comfortably in bed. He is maintaining good O2 saturation 90s on room air. He has normal saline running at 70 ML's per hour. He is continued on antibiotics in the form of vancomycin and cefepime. Blood cultures reveal no growth. Sodium 138. Potassium 3.9. BUN 12. Creatinine 0.51. He continues to have some episodes of bradycardia. Otherwise he's been hemodynamically stable. Afebrile. The patient is seen today 11/17/2021 in follow-up on the regular medical floor. He is resting quite comfortably in bed. Awake and alert in no acute distress. He is irritated. O2 saturations in the 90s on room air. Lungs sounds are clear. He is continued on vancomycin and cefepime for now. vancomycin trough 19.8. Blood cultures revealed no growth. Heparin for DVT prophylaxis. Objective - Vital Signs Vital signs: Vital Signs Temp 98.2 F 11/17/21 07:22 Pulse 62 11/17/21 07:22 Resp 17 11/17/21 07:22 BP 121/77 11/17/21 07:22 Pulse Ox 94 L 11/17/21 07:22 Intake & Output 11/16/21 11/17/21 11/17/21 18:59 06:59 18:59 Intake Total 1170 Output Total 3625 1100 Balance -1555 -1100 Intake: IV 420 Cefepime 2 gm In Sodium 100 Chloride 0.9% 100 ml @ 25 mls/hr IVPB Q8HR [facility] Rx# :[id number] Sodium Chloride 0.9% 1, 70 000 ml @ 50 mls/hr IV . Q20H [facility] Rx#:[id number] Vancomycin 1,500 mg In 250 Sodium Chloride 0.9% 250 ml @ 125 mls/hr IVPB Q8H [facility] Rx#:[id number] Oral 750 Output: Urine 2725 1100 Other: Voiding Method Urinal # Voids 1 2 # Bowel Movements 1 ABP, PAP, CO, CI - Last Documented Arterial Blood Pressure 104/71 - Exam GENERAL EXAM: Alert, very pleasant 71-year-old male patient, on room air, comfor table in no apparent distress. HEAD: Normocephalic. EYES: Normal reaction of pupils, equal size. NOSE: Clear with pink turbinates. THROAT: No erythema or exudates. NECK: No masses, no JVD. CHEST: No chest wall deformity. LUNGS: Equal air entry with no crackles, wheeze, rhonchi or dullness. CVS: S1 and S2 normal with no audible murmur, regular rhythm. ABDOMEN: No hepatosplenomegaly, normal bowel sounds, no guarding or rigidity. SPINE: No scoliosis or deformity SKIN: No rashes CENTRAL NERVOUS SYSTEM: No focal deficits, tone is normal in all 4 extremities. EXTREMITIES: Left knee edematous and open wound. There is no peripheral edema. No clubbing, no cyanosis. Peripheral pulses are intact. - Labs CBC & Chem 7: 11/15/21 05:00 11/17/21 08:54 Labs: Abnormal Lab Results - Last 24 Hours (Table) 11/17/21 Range/Units 08:54 Creatinine 0.63 L (0.66-1.25) mg/dL Microbiology - Last 24 Hours (Table) 11/13/21 21:57 Blood Culture - Preliminary Blood No Growth after 72 hours 11/13/21 21:50 Blood Culture - Preliminary Blood No Growth after 72 hours Assessment and Plan Assessment: 1 Septic shock secondary to septic knee joint. Recovered. Off pressors. Cultures reveal no growth. He remains on vancomycin and cefepime. 2 Septic knee joint is strongly suspected. 3 Hypotension secondary to sepsis/septic shock, could also be related to profound bradycardia intermittently. 4 Acute systolic congestive heart failure, ejection fraction of 45%. 5 History of rheumatoid arthritis 6 History of obstructive sleep apnea syndrome 7 History of dyslipidemia 8 Chronic back pain, patient has a pain pump in place. 9 History of ulcerative colitis. 10 History of nephrolithiasis. 11 History of left knee arthroplasty. Plan: The patient was seen and evaluated Remains on vancomycin and cefepime for now Awaiting further recommendation from ID services Stable and on room air We will see him on an as-needed basis I have personally seen and examined the patient, performed the documentation and the assessment and plan as written. Number of minutes spent on the visit: 10.
--- NOTE | 2021-11-17 11:30 | P.PN ---
Subjective Progress Note Date: 11/16/21 Principal diagnosis: Fever Patient is a 71-year-old male with a past medical history significant for left knee infection with Enterobacter and this patient presented to the hospital with mental status changes and fever. On today's evaluation that is, 11/16/2021 , The patient remains to be afebrile, the patient denies having any chest pain or shortness of breath or cough no nausea vomiting no abdominal pain no diarrhea denies any worsening pain to the left knee area Objective - Vital Signs Vital signs: Vital Signs Temp 98.1 F 11/16/21 08:00 Pulse 61 11/16/21 10:00 Resp 43 H 11/16/21 10:00 BP 123/83 11/16/21 10:00 Pulse Ox 97 11/16/21 10:00 Intake & Output 11/15/21 11/16/21 11/16/21 18:59 06:59 18:59 Intake Total 2108.723 1032 870 Output Total 275 950 425 Balance 1833.723 82 445 Weight 122.6 kg Intake: IV 1243 782 370 Cefepime 2 gm In Sodium 175 125 50 Chloride 0.9% 100 ml @ 25 mls/hr IVPB Q8[facility] Rx# :[id number] Sodium Chloride 0.9% 1, 400 240 70 000 ml @ 50 mls/hr IV . Q20H [facility] Rx#:[id number] Vancomycin 1,500 mg In 250 250 Sodium Chloride 0.9% 250 ml @ 125 mls/hr IVPB Q8H [facility] Rx#:[id number] Vancomycin 1,750 mg In 668 167 Sodium Chloride 0.9% 500 ml 500 ml @ 167 mls/hr IVPB ONCE ONE Rx#: [id number] Intake, IV Titration 125.723 Amount DOPamine DRIP 800 mg In 125.723 Dextrose/Water 1 250ml. bag @ 2.5 MCG/KG/MIN 5. 316 mls/hr IV .Q24H [facility] Rx#:[id number] Oral 740 250 500 Output: Urine 275 950 425 Other: Voiding Method Urinal # Voids 0 1 # Bowel Movements 1 1 1 ABP, PAP, CO, CI - Last Documented Arterial Blood Pressure 104/71 - Exam GENERAL DESCRIPTION: An elderly male lying in bed in no distress RESPIRATORY SYSTEM: Unlabored breathing , decreased breath sounds at bases HEART: S1 S2 regular rate and rhythm , ABDOMEN: Soft , no tenderness EXTREMITIES: No edema feet - Labs CBC & Chem 7: 11/15/21 05:00 11/17/21 08:54 Labs: Abnormal Lab Results - Last 24 Hours (Table) 11/16/21 Range/Units 05:25 Creatinine 0.51 L (0.66-1.25) mg/dL Calcium 7.8 L (8.4-10.2) mg/dL Total Protein 5.4 L (6.3-8.2) g/dL Albumin 2.7 L (3.5-5.0) g/dL Microbiology - Last 24 Hours (Table) 11/13/21 21:57 Blood Culture - Preliminary Blood No Growth after 48 hours 11/13/21 21:50 Blood Culture - Preliminary Blood No Growth after 48 hours Assessment and Plan (1) Sepsis Current Visit: Yes Status: Acute Code(s): A41.9 - SEPSIS, UNSPECIFIED ORGANISM SNOMED Code(s): 68985427 Plan: 1patient presented to hospital with sepsis in this patient did have a fever elevated white count and mental status changes in this patient currently undergoing treatment for his left knee septic arthritis with the previous culture positive for Enterobacter and Peptostreptococcus has been treated with washout of the knee and is currently on suppressive oral antibiotic therapy patient currently do not have any other obvious focus of infection no suspicious for pneumonia urine was negative abdominal soft local examination and possible concern for left knee infection.Discussed with Ortho no plan for any surgical intervention to the knee this admission 2patient Is currently being treated with the vancomycin pharmacy to dose and cefepime while waiting for the cultures to finalize 3local wound care to continue the knee with Medihoney followed by moist dressing Time with Patient: Less than 30
--- NOTE | 2021-11-17 11:32 | P.PN ---
Subjective Progress Note Date: 11/17/21 Principal diagnosis: Fever Patient is a 71-year-old male with a past medical history significant for left knee infection with Enterobacter and this patient presented to the hospital with mental status changes and fever. On today's evaluation that is, 11/17/2021 , The patient is afebrile, the patient denies chest pain or shortness of breath or cough , The patient denies nausea vomiting no abdominal pain no diarrhea , The patient pain to left knee is currently controlled Objective - Vital Signs Vital signs: Vital Signs Temp 98.2 F 11/17/21 07:22 Pulse 62 11/17/21 07:22 Resp 17 11/17/21 07:22 BP 121/77 11/17/21 07:22 Pulse Ox 94 L 11/17/21 07:22 Intake & Output 11/16/21 11/17/21 11/17/21 18:59 06:59 18:59 Intake Total 1170 Output Total 2725 1100 Balance -1555 -1100 Intake: IV 420 Cefepime 2 gm In Sodium 100 Chloride 0.9% 100 ml @ 25 mls/hr IVPB Q8HR [facility] Rx# :[id number] Sodium Chloride 0.9% 1, 70 000 ml @ 50 mls/hr IV . Q20H [facility] Rx#:[id number] Vancomycin 1,500 mg In 250 Sodium Chloride 0.9% 250 ml @ 125 mls/hr IVPB Q8H [facility] Rx#:[id number] Oral 750 Output: Urine 2725 1100 Other: Voiding Method Urinal # Voids 1 2 # Bowel Movements 1 ABP, PAP, CO, CI - Last Documented Arterial Blood Pressure 104/71 - Exam GENERAL DESCRIPTION: An elderly male lying in bed in no distress RESPIRATORY SYSTEM: Unlabored breathing , decreased breath sounds at bases HEART: S1 S2 regular rate and rhythm , ABDOMEN: Soft , no tenderness EXTREMITIES: Left knee incision is drying out with some surrounding swelling but no redness and no foul-smelling drainage - Labs CBC & Chem 7: 11/15/21 05:00 11/17/21 08:54 Labs: Abnormal Lab Results - Last 24 Hours (Table) 11/17/21 Range/Units 08:54 Creatinine 0.63 L (0.66-1.25) mg/dL Microbiology - Last 24 Hours (Table) 11/13/21 21:57 Blood Culture - Preliminary Blood No Growth after 72 hours 11/13/21 21:50 Blood Culture - Preliminary Blood No Growth after 72 hours Assessment and Plan (1) Sepsis Current Visit: Yes Status: Acute Code(s): A41.9 - SEPSIS, UNSPECIFIED ORGANISM SNOMED Code(s): 55895483 Plan: 1patient presented to hospital with sepsis in this patient did have a fever elevated white count and mental status changes in this patient currently undergoing treatment for his left knee septic arthritis with the previous culture positive for Enterobacter and Peptostreptococcus has been treated with washout of the knee and is currently on suppressive oral antibiotic therapy patient currently do not have any other obvious focus of infection no suspicious for pneumonia urine was negative abdominal soft local examination and possible concern for left knee infection.Discussed with Ortho no plan for any surgical intervention to the knee this admission 2patient Cultures has been negative advised to continue with oral Cipro and Flagyl that he already has on discharge 3local wound care Will be switched to dry Aquacel silver dressing change every 48 hour and follow-up with the wound care center next week Time with Patient: Less than 30
--- NOTE | 2021-11-17 14:32 | P.PN ---
Subjective The patient is a 71-year-old male with a past medical history of hypertension, dyslipidemia. He follows with Dr. Kearney. Patient presented with left knee discomfort and was found to have an infected knee with sepsis. He has underwent surgery on that knee in June of last year. Cardiology consultation was requested because of sinus bradycardia. While in the hospital in June of last year he had sinus bradycardia with a rate down to the 30s but no associated long pauses. He had an echocardiogram during that admission that showed an ejection fraction of 45-50% with mild mitral and tricuspid regurgitation. He subsequently underwent an event monitor that showed sinus mechanism with no significant bradycardia with one episode of nonsustained atrial tachycardia and an episode of paroxysmal atrial fibrillation but no pauses. Patient denies any chest discomfort, palpitations or dyspnea. He feels dizzy with change of position. In the ICU he had bradycardia and became quite somnolent. Of note that the patient has obstructive sleep apnea and uses his CPAP at home. He has no peripheral edema, PND or orthopnea. He has chronic back pain and has a pain pump. He is a nondiabetic nonsmoker. 11/17/2021 Patient seen and examined. He was transferred out of the ICU on 11/16/21. Patient states he is feeling well. Plan for him to be discharged today. He denies any chest pain or pressure. Still does have significant left lower extremity swelling. Echo shows ejection fraction 40-45% without significant valvular disease however valves not well visualized. He has had a good diet and appetite. Previous echo 06/23/2021 showed EF 45-50%. His heart rate 70 stable off the dopamine drip. Telemetry reviewed, patient maintained sinus mechanism with heart rate in the 50s-60s. No atrial fibrillation noted. No significant bradycardia or pauses noted. Physical Examination: vitals reviewed GENERAL: Well-appearing, well-nourished and in no acute distress. NECK: Supple without JVD or thyromegaly. LUNGS: Breath sounds clear to auscultation bilaterally. Respiration equal and unlabored. No wheezes, rales or rhonchi. HEART: Regular rate and rhythm without murmurs, rubs or gallops. S1 and S2 heard. EXTREMITIES: Normal range of motion, no edema. No clubbing or cyanosis. Peripheral pulses intact. ASSESSMENT Infected left knee, workup in progress Episodes of sinus bradycardia could be exacerbated by apnea. history of obstructive sleep apnea. Paroxysmal atrial fibrillation [id number] score 2 His event monitor in 07/2021 showed brief episodes of paroxysmal atrial fibrillation History of hypertension Hyperlipidemia Chronic back pain with pain pump Obstructive sleep apnea Prior history of mild cardiomyopathy of unclear etiology Mild cardiomyopathy EF 40-45%, previous 45-50%, likely non-ischemic Chronic systolic heart failure PLAN: From a cardiology perspective, we recommend anticoagulation for paroxysmal atrial fibrillation Start Eliquis 5mg BID, Case management consulted and patient has coverage with copay of $36.90/month No current indication for permanent pacemaker. Further treatment of chronic left knee infection per infectious disease, orthopedic surgery. No significant regurgitation noted to suggest any endocarditis. Recommend close follow up with Dr. Kearney in the office. Patient with a follow up appointment on 11/30/21 Nurse practitioner note has been reviewed by physician. Signing provider agrees with the documented findings, assessment, and plan of care. Objective - Vital Signs Vital signs: Vital Signs Temp 98.2 F 11/17/21 07:22 Pulse 62 11/17/21 07:22 Resp 17 11/17/21 07:22 BP 121/77 11/17/21 07:22 Pulse Ox 94 L 11/17/21 07:22 Intake & Output 11/16/21 11/17/21 11/17/21 18:59 06:59 18:59 Intake Total 1170 Output Total 2725 1100 Balance -1555 -1100 Intake: IV 420 Cefepime 2 gm In Sodium 100 Chloride 0.9% 100 ml @ 25 mls/hr IVPB Q8HR [facility] Rx# :[id number] Sodium Chloride 0.9% 1, 70 000 ml @ 50 mls/hr IV . Q20H [facility] Rx#:[id number] Vancomycin 1,500 mg In 250 Sodium Chloride 0.9% 250 ml @ 125 mls/hr IVPB Q8H [facility] Rx#:[id number] Oral 750 Output: Urine 2725 1100 Other: Voiding Method Urinal # Voids 1 2 # Bowel Movements 1 ABP, PAP, CO, CI - Last Documented Arterial Blood Pressure 104/71 - Labs CBC & Chem 7: 11/15/21 05:00 11/17/21 08:54 Labs: Abnormal Lab Results - Last 24 Hours (Table) 11/17/21 Range/Units 08:54 Creatinine 0.63 L (0.66-1.25) mg/dL Microbiology - Last 24 Hours (Table) 11/13/21 21:57 Blood Culture - Preliminary Blood No Growth after 72 hours 11/13/21 21:50 Blood Culture - Preliminary Blood No Growth after 72 hours
--- NOTE | 2021-11-23 22:38 | P.DS ---
Providers Date of admission: 11/14/21 00:40 Attending physician: Lorenzo Thomas Consults: 11/14/21 00:41 Consult Physician Routine Consulting Provider: Shen Del Rosario Consult Reason/Comments: known Do you want consulting provider notified?: Yes Consult Physician Routine Consulting Provider: Mahad Cornelius Consult Reason/Comments: known Do you want consulting provider notified?: Yes 11/14/21 03:14 Consult Physician Routine Consulting Provider: Kin Sanchez Consult Reason/Comments: new onset atrial fibrillation with controlled ventricular rate Do you want consulting provider notified?: Yes, Notify in am 11/14/21 04:21 Consult Physician Routine Consulting Provider: Nirmala Leo Consult Reason/Comments: hypotension Do you want consulting provider notified?: Yes Primary care physician: Lorenzo Thomas - Discharge Diagnosis(es) (1) Altered mental status Status: Acute (2) Effusion, left knee Status: Acute (3) Infection of left knee Status: Acute Priority: Medium (4) Sepsis Status: Acute (5) Rheumatoid arthritis Status: Acute Hospital Course: This is discharge home in a 71-year-old white male who is essentially has a history of hypertension dyslipidemia and has cardiology has found to have infected knee with sepsis. He underwent surgery of the knee in June and has had significant long-term treatment. He has been stable up until this hospitalization where he had altered mental status. Sepsis treatment was started and the patient did quite well. Multiple consultants including orthopedic surgery infectious disease and cardiology was done. The patient was stable back to his normal mentation. Appropriate cultures were done and outpatient and about treatment with oral antibiotics was started on discharge. Patient Condition at Discharge: Serious Plan - Discharge Summary Discharge Rx Participant: Yes New Discharge Prescriptions: New Apixaban [Eliquis] 5 mg PO BID 30 Days #60 tab Continue Simvastatin [Zocor] 80 mg PO DAILY azaTHIOprine [Imuran] 50 mg PO TID Folic Acid 1 mg PO DAILY allopurinoL [Zyloprim] 300 mg PO DAILY Doxazosin Mesylate [Cardura] 4 mg PO BID Calcium Carbonate [Calcium] 600 mg PO DAILY #0 Certolizumab Pegol [Cimzia] 400 mg SQ DIRECTED Morphine Pain Pump 1 dose INTRATHECA CONTINUOUS Baclofen [Lioresal] 20 mg PO TID Ramipril [Altace] 10 mg PO DAILY rOPINIRole HCL [Requip] 4 mg PO HS clonazePAM [KlonoPIN] 4 mg PO TID PRN #18 tab PRN Reason: Anxiety Gabapentin [Neurontin] 300 mg PO TID #9 cap Furosemide [Lasix] 20 mg PO DAILY Ciprofloxacin HCl [Cipro] 500 mg PO BID Glucosam/Tim-Msm1/C/Harish/Bosw [Glucosamine-Chondroitin Tablet] 1 tab PO DAILY Methotrexate/Pf [Reditrex 25 mg/ml Syringe] 25 mg SQ MO Ferrous Sulfate [Iron (65 MG Elemental)] 325 mg PO DAILY tab metroNIDAZOLE [Flagyl] 500 mg PO TID HYDROcodone/APAP 7.5-325MG [[place] 7.5-325] 1 tab PO DAILY PRN PRN Reason: Pain carvediloL [Coreg] 3.125 mg PO BID Discharge Medication List Doxazosin Mesylate [Cardura] 4 mg PO BID 10/14/15 [History] Folic Acid 1 mg PO DAILY 10/14/15 [History] Simvastatin [Zocor] 80 mg PO DAILY 10/14/15 [History] allopurinoL [Zyloprim] 300 mg PO DAILY 10/14/15 [History] azaTHIOprine [Imuran] 50 mg PO TID 10/14/15 [History] Calcium Carbonate [Calcium] 600 mg PO DAILY #0 12/05/18 [History] Certolizumab Pegol [Cimzia] 400 mg SQ DIRECTED 05/07/19 [History] Morphine Pain Pump 1 dose INTRATHECA CONTINUOUS 12/05/19 [History] Baclofen [Lioresal] 20 mg PO TID 02/11/20 [History] Ramipril [Altace] 10 mg PO DAILY 02/11/20 [History] Methotrexate/Pf [Reditrex 25 mg/ml Syringe] 25 mg SQ MO 06/21/21 [History] rOPINIRole HCL [Requip] 4 mg PO HS 07/14/21 [History] Ferrous Sulfate [Iron (65 MG Elemental)] 325 mg PO DAILY tab 07/21/21 [Rx] Gabapentin [Neurontin] 300 mg PO TID #9 cap 07/21/21 [Rx] clonazePAM [KlonoPIN] 4 mg PO TID PRN #18 tab 07/21/21 [Rx] Ciprofloxacin HCl [Cipro] 500 mg PO BID 11/14/21 [History] Furosemide [Lasix] 20 mg PO DAILY 11/14/21 [History] Glucosam/Tim-Msm1/C/Harish/Bosw [Glucosamine-Chondroitin Tablet] 1 tab PO DAILY 11/14/21 [History] HYDROcodone/APAP 7.5-325MG [[place] 7.5-325] 1 tab PO DAILY PRN 11/14/21 [History] carvediloL [Coreg] 3.125 mg PO BID 11/14/21 [History] metroNIDAZOLE [Flagyl] 500 mg PO TID 11/14/21 [History] Apixaban [Eliquis] 5 mg PO BID 30 Days #60 tab 11/17/21 [Rx] Follow up Appointment(s)/Referral(s): Lorenzo Thomas MD [Primary Care Provider] - 1-2 days (office closed at time of discharge) Radha Kearney MD [STAFF PHYSICIAN] - 11/30/21 10:00 am Mahad Cornelius MD [STAFF PHYSICIAN] - 1 Week Patient Instructions/Handouts: Apixaban (By mouth), A-fib (Atrial Fibrillation) (ED) Activity/Diet/Wound Care/Special Instructions: Eliquis copay is $36.90/month. Follow-up with Dr. Shen Del Rosario as previously scheduled. Daily dressing changes. Cardiology Instructions: Your event monitor from July 2021 revealed you went into a heart rhythm called atrial fibrillation. Due patient's age and risk factors it puts you at risk for having a stroke when in this heart rhythm. In order to reduce your risk of stroke we recommend Anticoagulation (a blood thinner) that you will take twice a day. This medication is called Eliquis. You will take 5mg Twice a day. Dr. Kearney will further manage this in the office. You have a follow up glen ointment with him On November 30, 2021. With blood thinner monitor for signs of increased bleeding. Discharge Disposition: HOME SELF-CARE
== END 2021-11-17 15:46 | disposition home or self-care (01) | DRG 862 ==
LOC: EC 20:56 → 4SSUR 11-14 00:40 → 2SICU 11-14 04:40 → 4SSUR 11-16 17:18
PROVIDERS: ADMIT Family Medicine; ATTEND Family Medicine
PROC: 02H633Z Insertion of Infusion Device into Right Atrium, Percutaneous Approach (ICD-10-PCS; principal; 2021-11-14)
PROC: 03HY32Z Insertion of Monitoring Device into Upper Artery, Percutaneous Approach (ICD-10-PCS; 2021-11-14)
PROC: 4A133B1 Monitoring of Arterial Pressure, Peripheral, Percutaneous Approach (ICD-10-PCS; 2021-11-14)
PROC: 4A133J1 Monitoring of Arterial Pulse, Peripheral, Percutaneous Approach (ICD-10-PCS; 2021-11-14)
DX: T81.44XA Sepsis following a procedure, initial encounter (principal); R65.21 Severe sepsis with septic shock; I42.8 Other cardiomyopathies; K51.90 Ulcerative colitis, unspecified, without complications; L03.90 Cellulitis, unspecified; M00.9 Pyogenic arthritis, unspecified; I50.22 Chronic systolic (congestive) heart failure; E78.5 Hyperlipidemia, unspecified; G47.33 Obstructive sleep apnea (adult) (pediatric); R00.1 Bradycardia, unspecified; G89.29 Other chronic pain; I11.0 Hypertensive heart disease with heart failure; I48.0 Paroxysmal atrial fibrillation; M06.9 Rheumatoid arthritis, unspecified; Z79.1 Long term (current) use of non-steroidal anti-inflammatories (NSAID); Z79.899 Other long term (current) drug therapy; Z79.2 Long term (current) use of antibiotics; Z82.3 Family history of stroke; Z82.49 Family history of ischemic heart disease and other diseases of the circulatory system; Z87.442 Personal history of urinary calculi; Z87.891 Personal history of nicotine dependence; Z96.652 Presence of left artificial knee joint
CPT/HCPCS: 36415; 71045; 80053; 80202; 80306; 80320; 81001; 82140; 82565; 83605; 83615; 83735; 84100; 84443; 84484; 85025; 85610; 85730; 86140; 87040; 93005; 93306; 94760; 96361; 96365; 96367; 99291

== ENCOUNTER → 2022-03-08 | Outpatient (CLI) | payer MEDICARE ==
[2022-03-08 22:34] LABS: Basophils # (A) 0.03 X 10*3/uL (0.00-0.10); Basophils % (A) 0.5 %; Eosinophils # (A) 0.01 X 10*3/uL (0.04-0.35); Eosinophils % (A) 0.2 %; HCT 35.8 % (39.6-50.0); Immature Grans, Automated 0.5 %; Lymphocytes # (A) 0.37 X 10*3/uL (0.90-5.00); Lymphocytes % (A) 5.9 %; MCH 30.9 pg (27.0-32.0); MCHC 30.7 g/dL (32.0-37.0); MCV 100.6 fL (80.0-97.0); Monocytes # (A) 0.34 X 10*3/uL (0.20-1.00); Monocytes % (A) 5.4 %; NRBC Per 100 WBC 0 /100 WBCS (0.0-0.0); Neutrophils # (A) 5.51 X 10*3/uL (1.80-7.70); Neutrophils % (A) 87.5 %; Platelet Count 366 X 10*3/uL (140-440); RBC 3.56 X 10*6/uL (4.40-5.60); RDW 17.2 % (11.5-14.5); WBC 6.29 X 10*3/uL (4.50-10.00)
[2022-03-08 23:10] LABS: Erythrocyte Sedimentation Rate 8 mm/Hr (0-20)
[2022-03-08 23:54] LABS: African American GFR (CKD) 111.5 (60.0-200.0); Anion Gap 9.7 mmol/L (10.00-18.00); BUN/Creat Ratio 24.63 Ratio (12.00-20.00); Blood Urea Nitrogen 16.7 mg/dL (9.0-27.0); Calcium 9.2 mg/dL (8.7-10.3); Carbon Dioxide 31.7 mmol/L (20.0-27.5); Non-African American GFR(CKD) 96.2 (60.0-200.0); Potassium 4.9 mmol/L (3.5-5.5)
== END | disposition home or self-care (01) ==
LOC: LABWHC1 14:22
PROVIDERS: ATTEND Internal Medicine Infectious Disease
DX: B99.9 Unspecified infectious disease (principal); M01.X62 Direct infection of left knee in infectious and parasitic diseases classified elsewhere
CPT/HCPCS: 36415; 80048; 85025; 85652

== ENCOUNTER → 2022-07-28 | Outpatient (CLI) | payer MEDICARE ==
--- NOTE | 2022-07-28 12:31 | P.PN ---
Subjective DATE: 07/28/2022 FOLLOW UP VISIT. Patient with obstructive sleep apnea hypopnea syndrome return to sleep center for follow-up visit. Information from previous visit have been reviewed. This is first visit after patient received new CPAP unit. Patient is using PAP equipment every night for the whole night, getting PAP supplies in time. The patient experiencing dryness in his mouth while using CPAP, he is using full face mask. [place] sleepiness scale is 3, which is normal. I checked information from PAP unit. PAP unit pressure 9 cm H2O. Usage is 95 % for more then 4 hours, average 5.3 hours per night. Leak is 40 l/m, which is in high range. Apnea Hypopnea Index is only 0.6, which is normal. MEDICATIONS:1. Allopurinol 300 mg once a day 2. Baclofen 20 mg 3 times a day 3. Carvedilol 3.125 mg twice a day 4. Doxazosin 4 mg twice a day 5. Eliquis 5 mg twice a day 6. Gabapentin 300 mg 3 times a day 7. Methotrexate 2.5 mg weekly injections 8. Ramipril 10 mg once a day 9.ropinirole 4 mg once a day, During physical exam: GENERAL: A pleasant patient without any distress. VITAL SIGNS: BP 105/62 HR 69, RR 16, weight 240.2, temperature 97.0, oxygen saturation at room air 97 % . HEENT: PERRLA, EOMI.low position of soft palate . NECK: Supple. No JVD. LUNGS: Clear to percussion and to auscultation. Good air exchange. No wheezing or rhonchi. HEART: S1, S2 regular. ABDOMEN: Soft and nontender. Slightly obese EXTREMITIES: No clubbing or cyanosis. [employer]: Awake, alert, and oriented x3. No focal deficit. Impressions: 1. Obstructive sleep apnea-hypopnea syndrome. Patient demonstrated great compliance with treatment, benefiting from treatment. 2. History of ulcerated colitis. 3. Nephrolithiasis. 4. 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 5. Hyperlipidemia. Plan: 1. Continue using PAP equipment every night for the whole night. I teach patient how to adjust humidity. Level of humidity was increased to 6, temperature in heated tube was increased to 82. 2. To change air filter at least 1-2 times per month. 3. PAP unit should stay lower then position of the head. 4. Advised patient to remove all remaining water from humidifier canister daily and make it dry after each usage. Refill canister with fresh distilled water before each usage. 5. Sleep hygiene with regular time in bed for at least 8 hours. 6. Precautions related to driving. No driving if feel any sleepiness. 7. I will maintain prescription for PAP supplies including mask, tube, filters. 8. Follow up visit in 6 months or earlier if patient has any problems. 9. Watching weight. Thank you very much for allowing me to participate in the management of your patient. Haseeb Daniels MD, PhD, FAASM. Diplomat of [employer], Sleep Medicine Board by [employer] [facility] [place]
== END ==
LOC: SLEEP 11:19
PROVIDERS: ATTEND Internal Medicine
DX: G47.33 Obstructive sleep apnea (adult) (pediatric) (principal); Z99.89 Dependence on other enabling machines and devices; E78.5 Hyperlipidemia, unspecified; K51.90 Ulcerative colitis, unspecified, without complications; N20.0 Calculus of kidney; Z98.890 Other specified postprocedural states; Z87.891 Personal history of nicotine dependence
CPT/HCPCS: 99212

== ENCOUNTER → 2022-09-09 | Outpatient (CLI) | payer MEDICARE ==
--- NOTE | 2022-09-09 15:50 | CT ---
EXAMINATION TYPE: CT cervical spine wo con DATE OF EXAM: 09/09/2022 COMPARISON: 12/05/2018 HISTORY: 71-year-old male M79.12, myalgia M54.2 Cervicalgia. TECHNIQUE: Contiguous axial scanning of the cervical spine without IV contrast. Coronal and sagittal reconstructions performed. CT DLP: 688.2 mGycm Automated exposure control for dose reduction was used. FINDINGS: No craniocervical junction, predental space widening, or prevertebral soft tissue swelling. Degenerat lo bony ankylosis at the C1 dens articulation. Moderate disc/endplate degenerative change from C3 through C7 levels with corresponding uncovertebral joint arthropathy. There may be some degenerative bony ankylosis along the lateral aspects at C3-C4 and C4-C5. Degenerative grade 1 retrolisthesis C3-C4 and C4-C5. Trace grade 1 anterolisthesis C7-T1. Hypertrophic facet arthropathy throughout. Discussed by complex and ligamentum flavum thickening may contribute to moderate spinal canal narrowi ng at multiple levels including C3-C6 levels. A specimen below this level is limited due to artifact from the patient's shoulders. At C2-C3, mild left neuroforaminal stenosis. At C3-C4, moderate bilateral neural foraminal stenosis. At C4-C5, severe right and moderate left neural foraminal stenosis. At C5-C6, severe bilateral neural foraminal stenosis. At C6-C7, moderate to severe bilateral neural foraminal stenosis. IMPRESSION: 1. MODERATE SPONDYLOTIC CHANGE ESPECIALLY FROM C3 THROUGH C7 LEVELS. THERE MAY BE SOME EARLY DEGENERA TIVE INTERBODY ANKYLOSIS ALONG THE LATERAL MARGINS AT C3-C4 AND C4-C5. WE ALSO NOTE DEGENERATIVE BONY ANKYLOSIS AT THE C1 DENS ARTICULATION. 2. DEGENERATIVE GRADE 1 SPONDYLOLISTHESIS C3-C4, C4-C5 , AND C7-T1. 3. SUSPECTED MODERATE UNDERLYING SPINAL CANAL STENOSES AT LEAST FROM C3 THROUGH C6 LEVELS. ASSESSMENT BELOW THESE LEVELS IS LIMITED DUE TO ARTIFACT FROM THE PATIENT'S SHOULDERS. 4. VARIABLE NEUROFORAMINAL STENOSES OUTLINED ABOVE.
== END | disposition home or self-care (01) ==
LOC: RADCTMAIN 12:41
PROVIDERS: ATTEND Orthopaedic Surgery Orthopaedic Surgery of the Spine
DX: M43.12 Spondylolisthesis, cervical region (principal); M47.812 Spondylosis without myelopathy or radiculopathy, cervical region; M79.12 Myalgia of auxiliary muscles, head and neck; M99.71 Connective tissue and disc stenosis of intervertebral foramina of cervical region; M43.22 Fusion of spine, cervical region; M43.13 Spondylolisthesis, cervicothoracic region
CPT/HCPCS: 72125

== ENCOUNTER → 2023-02-22 | Outpatient (CLI) | payer MEDICARE ==
[2023-02-22 16:46] LABS: INR 1.1 (<1.2); Partial Thromboplastin Time 28.7 sec (22.0-30.0); Prothrombin Time 11.1 sec (9.0-12.0)
[2023-02-23 02:21] LABS: ALT 10 U/L (10-49); AST 14 U/L (14-35); Albumin 3.8 d/dL (3.8-4.9); Albumin/Globulin Ratio 1.36 Ratio (1.60-3.17); Alkaline Phosphatase 75 U/L (41-126); BUN/Creat Ratio 24.67 Ratio (12.00-20.00); Blood Urea Nitrogen 14.8 mg/dL (9.0-27.0); Calcium 8.6 mg/dL (8.7-10.3); Carbon Dioxide 28.7 mmol/L (21.6-31.8); Chloride 102 mmol/L (96-109); Globulin 2.8 d/dL (1.6-3.3); Glucose 89 mg/dL (70-110); Potassium 4.5 mmol/L (3.5-5.5); Sodium 141 mmol/L (135-145); Total Bilirubin 0.5 mg/dL (0.3-1.2); Total Protein 6.6 d/dL (6.2-8.2)
[2023-02-23 02:29] LABS: Basophils # (A) 0.05 X 10*3/uL (0.00-0.10); Basophils % (A) 1.2 %; Eosinophils # (A) 0.14 X 10*3/uL (0.04-0.35); Eosinophils % (A) 3.5 %; HGB 10.1 d/dL (12.0-15.0); Lymphocytes # (A) 0.64 X 10*3/uL (0.90-5.00); Lymphocytes % (A) 15.8 %; MCH 30.1 pg (27.0-32.0); MCHC 30.6 d/dL (32.0-37.0); MCV 98.5 FL (80.0-97.0); Mean Platelet Volume 10.4 FL (9.5-12.2); Monocytes # (A) 0.41 X 10*3/uL (0.20-1.00); Monocytes % (A) 10.1 %; NRBC Per 100 WBC 0 X 10*3/uL (0.00-0.01); Neutrophils # (A) 2.79 X 10*3/uL (1.80-7.70); Neutrophils % (A) 69.2 %; Platelet Count 278 X 10*3/uL (140-440); RBC 3.35 X 10*6/uL (4.40-5.60); RDW 17.6 % (11.5-14.5); WBC 4.04 X 10*3/uL (4.50-10.00)
[2023-02-23 03:22] LABS: Bacteria,Urine None Seen (None Seen)
[2023-02-23 03:31] LABS: Appearance,Urine Turbid (Clear); Bilirubin,Urine Negative (Negative); Blood,Urine Negative (Negative); Color,Urine Yellow (Yellow); Ketones,Urine Negative (Negative); Nitrite,Urine Negative (Negative); PH, Urine 5.5; Specific Gravity,Urine 1.023 (1.001-1.030)
== END | disposition home or self-care (01) ==
LOC: LABPAT 14:43
PROVIDERS: ATTEND Orthopaedic Surgery
DX: Z01.812 Encounter for preprocedural laboratory examination (principal); B99.9 Unspecified infectious disease; Z96.652 Presence of left artificial knee joint
CPT/HCPCS: 80053; 81001; 85025; 85610; 85730; 87070

== ENCOUNTER 2023-03-14 09:40 | Inpatient (IN) | payer MEDICARE ==
[2023-03-10 14:11] VITALS: BMI 34.7
[~2023-03-14 09:40] MED LIST changes: +ACETAMINOPHEN TAB 500 MG TAB PO PRN; +GABAPENTIN 300 MG CAP PO PRN; +HYDROmorphone 0.5 MG/0.5 ML SYRINGE IVP PRN; +LIDOCAINE 1% (10MG/ML) FOR IV START INTRADERMA PRN; +MELOXICAM 7.5 MG TAB PO PRN; +METOCLOPRAMIDE 5 MG/ML 2 ML VIAL IVP PRN; +MIDAZOLAM 2 MG/2 ML VIAL IV PRN; -Pre Op ABX Message 1 EACH MISC MISCELLANE ONE; +TRANEXAMIC 1,000 MG/100ML-NACL 1,000 MG in SALINE 1 100ML.BAG IVPB PRN; +ceFAZolin 3 GM in SODIUM CHLORIDE 0.9% 100 ML IVPB PRN; +fentaNYL (PF) 50 MCG/ML 2 ML AMP IVP PRN
[2023-03-14] MEDS: LACTATED RINGERS 1,000 ML IV SCH (09:56)
[2023-03-14] MEDS ORDERED: MAGNESIUM HYDROXIDE 2,400 MG/30 ML CUP PO PRN (11:07)
[2023-03-14] MEDS ORDERED: ONDANSETRON 4 MG/2 ML VIAL IVP PRN (11:07)
[2023-03-14] MEDS ORDERED: HYDROmorphone 0.5 MG/0.5 ML SYRINGE IVP PRN ×2 (11:07)
[2023-03-14] MEDS ORDERED: bisacodyL 10 MG SUPP RECTAL PRN (11:07)
[2023-03-14] MEDS ORDERED: NA PHOS,M-B/NA PHOS,DI-BA 133 ML ENEMA RECTAL PRN (11:07)
[2023-03-14] MEDS ORDERED: NALOXONE 0.4 MG/ML 1 ML VIAL IV PRN (11:07)
[2023-03-14] MEDS ORDERED: HYDROcodone/APAP 7.5-325MG 1 EACH TAB PO PRN (11:08)
[2023-03-14] MEDS ORDERED: GLYCOPYRROLATE 0.2 MG/ML 2 ML VIAL ONE (11:27)
[2023-03-14] MEDS ORDERED: LIDOCAINE 2% INJ 20 MG/ML (2 ML VIAL) ONE (11:27)
[2023-03-14] MEDS ORDERED: NEOSTIGMINE 1 MG/ML 10 ML VIAL ONE (11:27)
[2023-03-14] MEDS ORDERED: ROCURONIUM 10 MG/ML (5 ML VIAL) IV ONE (11:27)
[2023-03-14] MEDS ORDERED: KETAMINE 10 MG/ML 20 ML VIAL ONE (11:27)
[2023-03-14] MEDS ORDERED: fentaNYL (PF) 50 MCG/ML 2 ML AMP ONE (11:27)
[2023-03-14] MEDS ORDERED: ePHEDrine 50 MG/ML 1 ML VIAL ONE (11:27)
[2023-03-14] MEDS ORDERED: ACETAMINOPHEN IV (For NPO) 1,000 MG/100 ML VIAL ONE (11:27)
[2023-03-14] MEDS ORDERED: PROPOFOL 10 MG/ML 20 ML VIAL IV ONE (11:27)
[2023-03-14] MEDS ORDERED: HYDROmorphone (PF) 1 MG/ML ONE (11:27)
[2023-03-14] MEDS ORDERED: SUCCINYLCHOLINE CHLORIDE 200 MG/10 ML VIAL IV ONE (11:27)
[2023-03-14] MEDS ORDERED: TRANEXAMIC 1,000 MG/100ML-NACL PREMIX BAG ONE (11:27)
[2023-03-14] MEDS ORDERED: MIDAZOLAM 2 MG/2 ML VIAL ONE (11:27)
[2023-03-14] MEDS ORDERED: ceFAZolin 3,000 MG in SODIUM CHLORIDE 0.9% IRRIGATIO 3,000 ML IRRIGATION ONE (12:05)
--- NOTE | 2023-03-14 13:23 | P.OP ---
Date of Procedure: 03/14/23 Preoperative Diagnosis: Chronic infection left total knee Postoperative Diagnosis: Chronic infection left total knee Procedure(s) Performed: Stage I revision left total knee with removal of implants and placement of antibiotic spacer Implants: Interspace large articulating spacer Simplex P antibiotic cement with tobramycin 2 Anesthesia: spinal Surgeon: Shen Del Rosario Substitute Teacher #1: Isidra Hodges Estimated Blood Loss (ml): 1,000 Pathology: other (Cultures 2) Condition: stable Disposition: PACU Indications for Procedure: This is a 72-year-old gentleman has had a prior left total knee arthroplasty. He had a secondary procedure are to stabilize his patella, but acquired an infection after the procedure. He's had multiple attempts at incision and drainage of the left knee, but these failed to eradicate the infection. After discussing the surgical nonsurgical treatment options with her at length, I recommended a stage I revision of his left total knee with removal of implants and placement of anabolic spacer. Informed consent was obtained. Operative Findings: The operative findings are consistent with a chronic deep infection of the left total knee Description of Procedure: The patient was seen in the preoperative area, the consent was reviewed and the operative site was marked with a skin marker. The patient verified the procedure and the operative site. The patient was then brought to the operating room and positioned on the operating room table in the supine position. Preoperative antibiotics were held until cultures were obtained. 1 gram of tranexamic acid were given intravenously. A general anesthetic was administered by the anesthesia department. Care was taken to make sure that all pressure points were adequately padded. The lower extremity was prepped with ChloraPrep and draped in usual sterile fashion. A universal time-out was then performed which confirmed the patient's name, surgical site, ALLERGIES, and consent. A standard anterior midline approach to the knee was performed with the prior scar being excised. There was noted to be a draining sinus the mid aspect of the incision which was excised as well.. The skin and subcutaneous tissue were sharply dissected down to the patellar tendon. A medial parapatellar arthrotomy was then performed. A large amount of purulent material was encountered and this was cultured 2. The knee was then extended, the patellar was everted, and the knee was flexed. An extensive synovectomy was performed utilizing a Rominger as well as a Bovie and a Aqua Mantis device. Next, the polyethylene insert was removed with a Ronguer. A small oscillating saw was used to break up the interface between implant and cement for the tibia and femur. The tibia and femur were then removed with an osteotome and a mallet with minimal bone loss. A large saw was then used to freshen the ends of the bone and debrided the ends of the bone. Attention was then directed to the patella. The patellar component was then removed utilizing a saw and osteotome. The knee was then copiously irrigated with antibiotic solution as well as Irricept solution and dilute Betadine. After a thorough irrigation debridement spacer trials were then placed. After the trials were found to fit, they were then removed and the final implants opened. The antibiotic cement was opened and mixed and the components were lightly cemented in. The knee was held in full extension while the cement hardened. After the cemented hardened, A second gram of transexamic acid was given intravenously. The fascia was then closed with 0 Vicryl followed by #2 strata fix suture. The subcutaneous tissue was closed with 3-0 Vicryl. Ericson were used for the skin. A Prevena wound VAC was then placed over the incision site. A lightly compressive dressing was applied using web roll and Francisco wrap. A knee immobilizer was then placed Patient was then transferred to the stretcher and taken to recovery room in stable condition. Sponge and needle counts were correct. The grants assistant SANTO Dexter was required due the complexity surgery and the need for a skilled certified ophthalmic surgical assistant. She assisted in positioning, draping, retraction, and closure of the wound.
[2023-03-14] MEDS ORDERED: LACTATED RINGERS 1,000 ML IV ONE ×2 (13:32→15:21)
--- NOTE | 2023-03-14 15:14 | XR ---
EXAMINATION TYPE: XR knee limited LT DATE OF EXAM: 03/14/2023 CLINICAL HISTORY: Postoperative evaluation Two views of the left knee are submitted. There is been revision total knee arthroplasty seen previou sly. Tibial and femoral prostheses noted. Methylmethacrylate identified. Postsurgical soft tissue france nges are noted. Alignment is anatomic.
[2023-03-14] MEDS: CEFEPIME 2 GM in SODIUM CHLORIDE 0.9% 100 ML IVPB SCH (17:06)
--- NOTE | 2023-03-14 19:07 | P.CONS ---
History of Present Illness - History of Present Illness This is a pleasant 72 years old male with past medical history of multiple me dical problems as below Patient has history of chronic left knee infection. He is status post (Stage I revision left total knee with removal of implants and placement of antibiotic spacer). Today is postop day #0 Patient is seen in the PACU, he was lying in bed awake and oriented but lethargic, somewhat poor historian. However he was denying any specific complaints other than pain of the surgical site. No chest pain or dyspnea. No abdominal pain. No headache weakness or numbness. He is hemodynamically stable, afebrile. No labs during this admission Are reviewed most recent labs from 02/22/2023: Hemoglobin 10.1, platelet count 278, WBC 4.0. INR 1.1 Electrolytes are normal, creatinine normal 0.6. There is no BMP is unremarkable. Glucose 115. Liver enzymes had elevated, bilirubin within the reference range. Urine analysis is negative for infection Infectious disease team on the case and he was covered with cefepime currently Review of Systems Review of systems CONSTITUTIONAL: No fever, no malaise, no fatigue. HEENT: No recent visual problems or hearing problems. Denied any sore throat. CARDIOVASCULAR: No orthopnea, PND, no palpitations, no syncope. PULMONARY: No shortness of breath, no cough, no hemoptysis. GASTROINTESTINAL: No diarrhea, no nausea, no vomiting, no abdominal pain. Normoactive bowel sounds. NEUROLOGICAL: No headaches, no weakness, no numbness. HEMATOLOGICAL: Denies any bleeding or petechiae. GENITOURINARY: Denies any burning micturition, frequency, or urgency. MUSCULOSKELETAL/RHEUMATOLOGICAL: Denies any joint pain, swelling, or any muscle pain. Except what is mentioned above ENDOCRINE: Denies any polyuria or polydipsia. 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 STEROID INJECTION KNEES. COLONOSCOPY. LEFT KNEE REPL. ARJUN. ELBOW SURG. Past Anesthesia/Blood Transfusion Reactions: No Reported Reaction Past Psychological History: No Psychological Hx Reported Additional Psychological History / Comment(s): TAKES KLONOPIN FOR TREMORS Smoking Status: Former smoker Past Alcohol Use History: Occasional Additional Past Alcohol Use History / Comment(s): 1 cigars -smoking ON OCCASION . smoked approx <1 ppd from age 20 to age 40. Past Drug Use History: Marijuana Additional Drug Use History / Comment(s): Medical Marijuana card PRN - Past Family History Mother Family Medical History: No Reported History Additional Family Medical History / Comment(s): of alcoholism Father Family Medical History: CVA/TIA, Myocardial Infarction ([place]) Medications and Allergies Home Medications Medication Instructions Recorded Confirmed Type Doxazosin Mesylate [Cardura] 4 mg PO BID 10/14/15 03/14/23 History Folic Acid 1 mg PO DAILY 10/14/15 03/14/23 History Simvastatin [Zocor] 80 mg PO DAILY 10/14/15 03/14/23 History allopurinoL [Zyloprim] 300 mg PO DAILY 10/14/15 03/14/23 History azaTHIOprine [Imuran] 50 mg PO TID 10/14/15 03/14/23 History Calcium Carbonate [Calcium] 600 mg PO DAILY #0 12/05/18 03/14/23 History Morphine Pain Pump 1 dose INTRATHECA CONTINUOUS 12/05/19 03/14/23 History Baclofen [Lioresal] 20 mg PO TID 02/11/20 03/14/23 History ramipriL [Altace] 10 mg PO DAILY 02/11/20 03/14/23 History rOPINIRole HCL [Requip] 4 mg PO HS 07/14/21 03/14/23 History Ferrous Sulfate [Iron (65 MG 325 mg PO DAILY tab 07/21/21 03/14/23 Rx Elemental)] Gabapentin [Neurontin] 300 mg PO TID #9 cap 07/21/21 03/14/23 Rx Ciprofloxacin HCl [Cipro] 500 mg PO BID 11/14/21 03/14/23 History carvediloL [Coreg] 3.125 mg PO BID 11/14/21 03/14/23 History Apixaban [Eliquis] 5 mg PO BID 30 Days #60 tab 11/17/21 03/14/23 Rx HYDROcodone/APAP 10-325MG [[place] 1 tab PO Q6HR PRN 03/10/23 03/14/23 History 10-325] Nf-Methotrexate Inj. 1 injection INJ Q7D 03/10/23 03/14/23 History clonazePAM [KlonoPIN] 4 mg PO BID 03/10/23 03/14/23 History HYDROcodone/APAP 7.5-325MG [[place] 1 - 2 tab PO Q6H PRN #32 tab 03/14/23 Rx 7.5-325] Sennosides [Senokot] 2 tab PO DAILY PRN #60 tablet 03/14/23 Rx Allergies Allergy/AdvReac Type Severity Reaction Status Date / Time No Known Allergies Allergy Verified 03/14/23 10:20 Physical Exam Vitals: Vital Signs Temp Pulse Resp BP Pulse Ox 03/14/23 15:19 64 14 92/60 96 03/14/23 15:04 62 14 90/55 96 03/14/23 14:49 66 12 94/60 92 L 03/14/23 14:34 60 12 99/55 98 03/14/23 14:19 60 14 88/52 98 03/14/23 14:04 65 14 91/56 97 03/14/23 13:49 97.3 F L 63 14 99/61 94 L 03/14/23 10:26 97 F L 63 18 102/57 95 Intake and Output 03/14/23 03/14/23 03/14/23 06:59 14:59 22:59 Intake Total 2101 Output Total 1000 Balance 1101 Intake: IV 2101 Output: Estimated Blood Loss 1000 Other: Weight 129.274 kg GENERAL: The patient is alert and oriented x3, not in any acute distress. Well developed, well nourished. HEENT: Pupils are round and equally reacting to light. EOMI. No scleral icterus. No conjunctival pallor. Normocephalic, atraumatic. No pharyngeal erythema. No thyromegaly. CARDIOVASCULAR: S1 and S2 present. No murmurs, rubs, or gallops. PULMONARY: Chest is clear to auscultation, no wheezing , no crackles. ABDOMEN: Soft, nontender, nondistended, normoactive bowel sounds. No palpable organomegaly. -MUSCULOSKELETAL: No joint swelling or deformity. Left knee in a brace with distress and in a Place. Breast exam is deferred to surgery team EXTREMITIES: No cyanosis, clubbing, or pedal edema. NEUROLOGICAL: Gross neurological examination did not reveal any focal deficits. SKIN: No rashes. no petechiae. Assessment and Plan Assessment: Left knee infection status post stage I revision of the left total knee with removal of implants and placement of antibiotic spacer. Status post wound VAC Hyperlipidemia Hypertension History of rheumatoid arthritis History of sleep apnea History of ulcerative colitis of kidney stone Obesity with BMI of 34.7 Plan: Orthopedic primary team on the case Infectious disease consult. Continue with cefepime Wound VAC in place Pain management Labs and medication were reviewed.. Continue same treatment. Continue with symptomatic treatment. Resume home medication. Monitor labs and vitals. DVT and GI prophylaxis. Further recommendations as per clinical course of the patient DVT prophylaxis: Deferred to surgery team GI Prophylaxis: Mima Thank you for consulting us, we will follow up
[2023-03-14] MEDS: SENNOSIDES-DOCUSATE SODIUM 1 EACH TAB PO SCH (19:40)
[2023-03-14] MEDS: HYDROmorphone 0.5 MG/0.5 ML SYRINGE IVP PRN (19:45)
[2023-03-14 21:09] LABS: Anisocytosis Slight; Basophils % (A) 0 %; Eosinophils % (A) 1 %; HCT 25.6 % (39.0-53.0); HGB 7.5 gm/dL (13.0-17.5); Hypochromasia Moderate; Lymphocytes # (A) 0.3 k/uL (1.0-4.8); Lymphocytes % (A) 7 %; MCH 27.6 pg (25.0-35.0); MCHC 29.2 g/dL (31.0-37.0); MCV 94.7 fL (80.0-100.0); Monocytes # (A) 0.1 k/uL (0-1.0); Monocytes % (A) 3 %; Neutrophils # (A) 3.9 k/uL (1.3-7.7); Neutrophils % (A) 88 %; Platelet Count 251 k/uL (150-450); RDW 17.5 % (11.5-15.5); WBC 4.5 k/uL (3.8-10.6)
[2023-03-14] MEDS: HYDROcodone/APAP 7.5-325MG 1 EACH TAB PO PRN (23:34)
[2023-03-15] MEDS: SODIUM CHLORIDE 0.9% 1,000 ML IV SCH ×3 (00:28→16:47)
[2023-03-15] MEDS: CEFEPIME 2 GM in SODIUM CHLORIDE 0.9% 100 ML IVPB SCH ×3 (00:28→16:48)
[2023-03-15] MEDS: HYDROmorphone 0.5 MG/0.5 ML SYRINGE IVP PRN ×5 (00:31→20:13)
[2023-03-15] MEDS: HYDROcodone/APAP 7.5-325MG 1 EACH TAB PO PRN ×3 (04:12→16:48)
[2023-03-15] MEDS: LACTATED RINGERS 1,000 ML IV SCH (04:54)
--- NOTE | 2023-03-15 08:57 | P.CONS ---
History of Present Illness - Reason for Consult Consult date: 03/14/23 Infection of left total knee Requesting physician: Isidra Hodges - Chief Complaint Left knee pain swelling x weeks - History of Present Illness Patient is a 72-year-old male with a past medical history significant for osteoarthritis in this patient with a history of left knee replacement rheumatoid arthritis hypertension hyperlipidemia sleep apnea patient did have a history of left knee septic arthritis that was treated with I&D and antibiotic bead placement patient subsequently did have problems with the nonhealing wound that finally did heal up cultures at that time were positive for Enterobacter patient was treated with IV by therapy and since then has been on suppressive oral Cipro however the patient was noted to have persistent swelling of the left knee and pain patient describes the pain to be dull aching to throbbing 6-7 out of 10 no radiation with persistent deformity and swelling patient was admitted to patient is status post stage I revision of left knee with removal of implants and placement of antibiotic spacer cultures were obtained patient was started on cefazolin infectious disease was consulted for further management of antibiotic therapy Review of Systems Positive point and negatives has been mentioned in the HPI, complete review of systems was performed and all other systems are negative Past Medical History Past Medical History: Hyperlipidemia, Hypertension, Rheumatoid Arthritis (RA), Sleep Apnea/CPAP/BIPAP Additional Past Medical History / Comment(s): ulcerative colitis, kidney stones, 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 STEROID INJECTION KNEES. COLONOSCOPY. LEFT KNEE REPL. ARJUN. ELBOW SURG. Past Anesthesia/Blood Transfusion Reactions: No Reported Reaction Past Psychological History: No Psychological Hx Reported Additional Psychological History / Comment(s): TAKES KLONOPIN FOR TREMORS Smoking Status: Former smoker Past Alcohol Use History: Occasional Additional Past Alcohol Use History / Comment(s): 1 cigars -smoking ON OCCASION . smoked approx <1 ppd from age 20 to age 40. Past Drug Use History: Marijuana Additional Drug Use History / Comment(s): Medical Marijuana card PRN - Past Family History Mother Family Medical History: No Reported History Additional Family Medical History / Comment(s): of alcoholism Father Family Medical History: CVA/TIA, Myocardial Infarction ([place]) Medications and Allergies Home Medications Medication Instructions Recorded Confirmed Type Doxazosin Mesylate [Cardura] 4 mg PO BID 10/14/15 03/14/23 History Folic Acid 1 mg PO DAILY 10/14/15 03/14/23 History Simvastatin [Zocor] 80 mg PO DAILY 10/14/15 03/14/23 History allopurinoL [Zyloprim] 300 mg PO DAILY 10/14/15 03/14/23 History azaTHIOprine [Imuran] 50 mg PO TID 10/14/15 03/14/23 History Calcium Carbonate [Calcium] 600 mg PO DAILY #0 12/05/18 03/14/23 History Morphine Pain Pump 1 dose INTRATHECA CONTINUOUS 12/05/19 03/14/23 History Baclofen [Lioresal] 20 mg PO TID 02/11/20 03/14/23 History ramipriL [Altace] 10 mg PO DAILY 02/11/20 03/14/23 History rOPINIRole HCL [Requip] 4 mg PO HS 07/14/21 03/14/23 History Ferrous Sulfate [Iron (65 MG 325 mg PO DAILY tab 07/21/21 03/14/23 Rx Elemental)] Gabapentin [Neurontin] 300 mg PO TID #9 cap 07/21/21 03/14/23 Rx Ciprofloxacin HCl [Cipro] 500 mg PO BID 11/14/21 03/14/23 History carvediloL [Coreg] 3.125 mg PO BID 11/14/21 03/14/23 History Apixaban [Eliquis] 5 mg PO BID 30 Days #60 tab 11/17/21 03/14/23 Rx HYDROcodone/APAP 10-325MG [[place] 1 tab PO Q6HR PRN 03/10/23 03/14/23 History 10-325] Nf-Methotrexate Inj. 1 injection INJ Q7D 03/10/23 03/14/23 History clonazePAM [KlonoPIN] 4 mg PO BID 03/10/23 03/14/23 History Sennosides [Senokot] 2 tab PO DAILY PRN #60 tablet 03/14/23 Rx Cefepime [Maxipime] 2 gm IVPB Q8H #120 each 03/20/23 Rx HYDROcodone/APAP 10-325MG [[place] 1 tab PO Q4-6H PRN #30 tab 03/20/23 Rx 10-181] Allergies Allergy/AdvReac Type Severity Reaction Status Date / Time No Known Allergies Allergy Verified 03/14/23 10:20 Physical Exam Vitals: Vital Signs Temp Pulse Resp BP Pulse Ox 03/14/23 10:26 97 F L 63 18 102/57 95 Intake and Output 03/13/23 03/14/23 03/14/23 22:59 06:59 14:59 Intake Total 301 Balance 301 Intake: IV 301 Other: Weight 129.274 kg GENERAL DESCRIPTION: Elderly male lying in bed, no distress. No tachypnea or accessory muscle of respiration use. HEENT: Shows Pallor , no scleral icterus. Oral mucous membrane is dry. No pharyngeal erythema or thrush NECK: Trachea central, no thyromegaly. LUNGS: Unlabored breathing. Clear to auscultation anteriorly. No wheeze or crackle. HEART: S1, S2, regular rate and rhythm. No loud murmur ABDOMEN: Soft, no tenderness , guarding or rigidity, no organomegaly EXTREMITIES: Left he is currently covered with postop Prevana vac SKIN: No rash, no masses palpable. NEUROLOGICAL: The patient is awake, alert, oriented x3, mood and affect normal. Results CBC & Chem 7: 03/20/23 06:32 03/20/23 06:32 Assessment and Plan (1) Infection of total left knee replacement Status: Acute Priority: Medium Code(s): T84.54XA - INFECT/INFLM REACTION DUE TO INTERNAL LEFT KNEE PROSTH, INIT SNOMED Code(s): 562899124 Plan: 1patient with left knee septic arthritis at this patient failing medical and conservative therapy in this patient who is status post stage I procedure with removal of the infected prosthesis with placement of antibiotic spacer previous culture positive for Enterobacter could be the same pathogen 2-discontinue cefazolin 3-start the patient on cefepime 2 g every 8 hours 4-check inflammatory markers 5-we will need PICC line for outpatient IV antibiotic therapy We will follow on clinical condition and cultures to further adjust medication if needed Thank you for this consultation we will follow the patient along with you Dictation was produced using [employer]pto dictation software. please excuse any g rammatical, word or spelling errors. Time with Patient: Greater than 30
[2023-03-15 09:26] LABS: Basophils # (A) 0.02 X 10*3/uL (0.00-0.10); Basophils % (A) 0.3 %; Eosinophils # (A) 0.05 X 10*3/uL (0.04-0.35); Eosinophils % (A) 0.8 %; HCT 23.2 % (39.6-50.0); HGB 7.1 d/dL (13.0-17.0); Lymphocytes % (A) 9.5 %; MCH 29.3 pg (27.0-32.0); MCHC 30.6 d/dL (32.0-37.0); MCV 95.9 FL (80.0-97.0); Monocytes % (A) 7.9 %; NRBC Per 100 WBC 0 X 10*3/uL (0.00-0.01); Neutrophils # (A) 5.12 X 10*3/uL (1.80-7.70); Neutrophils % (A) 80.7 %; Platelet Count 272 X 10*3/uL (140-440); RBC 2.42 X 10*6/uL (4.40-5.60); RDW 17.3 % (11.5-14.5); WBC 6.34 X 10*3/uL (4.50-10.00)
[2023-03-15] MEDS: APIXABAN 5 MG TAB PO SCH ×2 (09:36→20:12)
--- NOTE | 2023-03-15 09:52 | P.PN ---
Subjective Progress Note Date: 03/15/23 This is a 72-year-old male who is status post stage I revision left total knee with removal of implants and placement of antibiotic spacer. This is postoperative day #1 and patient is seen and evaluated at bedside with Dr. Shen Del Rosario. Patient states that he has had pain in the left knee, but was able to work with physical therapy. Patient states that he felt somewhat lightheaded upon standing. Patient states that they emptied his hemovac drain twice so far. Patient denies any fever/chills, numbness, weakness, tingling, abdominal pain, shortness of breath or chest pain. Objective - Vital Signs Vital signs: Vital Signs Temp 97.5 F L 03/15/23 07:17 Pulse 59 L 03/15/23 07:17 Resp 19 03/15/23 07:17 BP 96/61 03/15/23 07:17 Pulse Ox 99 03/15/23 07:17 FiO2 Intake & Output 03/14/23 03/15/23 03/15/23 18:59 06:59 18:59 Intake Total 2101 Output Total 1000 125 125 Balance 1101 -125 -125 Weight 129.274 kg Intake: IV 2100 Output: Drainage 125 Left Knee 125 Urine 125 Estimated Blood Loss 1000 Other: Voiding Method Urinal Urinal - Exam Vital signs are stable. Patient is in no acute distress and is alert and oriented 3. Calf is soft and nontender to palpation. Prevena wound VAC is clean, dry, and intact. Patient has full foot and ankle motion without pain or difficulty. Sensation intact. Neurovascular status and circulatory status are intact. - Labs CBC & Chem 7: 03/15/23 05:46 Labs: Abnormal Lab Results - Last 24 Hours (Table) 03/14/23 03/15/23 Range/Units 20:35 05:46 RBC 2.70 L 2.42 L (4.30-5.90) m/uL Hgb 7.5 L 7.1 L (13.0-17.5) gm/dL Hct 25.6 L 23.2 L (39.0-53.0) % MCHC 29.2 L 30.6 L (31.0-37.0) g/dL RDW 17.5 H 17.3 H (11.5-15.5) % Lymphocytes # 0.3 L 0.60 L (1.0-4.8) k/uL Assessment and Plan Assessment: Status post stage I revision left total knee with removal of implants and placement of antibiotic spacer. (1) Infection of total left knee replacement Current Visit: Yes Status: Acute Code(s): T84.54XA - INFECT/INFLM REACTION DUE TO INTERNAL LEFT KNEE PROSTH, INIT SNOMED Code(s): 855737451 (2) History of total left knee replacement Current Visit: No Status: Acute Code(s): Z96.652 - PRESENCE OF LEFT ARTIFICIAL KNEE JOINT SNOMED Code(s): 5703236666515 Plan: #1 Continue with routine postoperative care and pain control, leave Prevena wound vac in place x7days. #2 Patient has resumed Eliquis. #3 Physical therapy today. #4 Appreciate input from internal medicine and infectious disease. #5 Cultures are pending. Antibiotics per infectious disease. #6 Hemoglobin is 7.1 today. #7 Anticipate discharge in the next 48-72 hours pending cultures, PICC line and discharge antibiotic determination. Patient may need ECF placement.
[2023-03-15] MEDS ORDERED: VANCOMYCIN IV PER PHARMACY 1 EACH MISC MISCELLANE PRN (12:34)
[2023-03-15] MEDS ORDERED: SODIUM CHLORIDE 0.9% 500 ML 250 ML IV ONE (12:57)
[2023-03-15] MEDS ORDERED: VANCOMYCIN 2,000 MG in SODIUM CHLORIDE 0.9% 500 ML 500 ML IVPB ONE (13:00)
[2023-03-15 13:05] LABS: African American GFR (CKD) >90 (>60 ml/min/1.73 sqM); Non-African American GFR(CKD) >90 (>60 ml/min/1.73 sqM)
--- NOTE | 2023-03-15 13:08 | P.PN ---
Subjective This is a pleasant 72 years old male with past medical history of multiple medical problems as below Patient has history of chronic left knee infection. He is status post (Stage I revision left total knee with removal of implants and placement of antibiotic spacer). Today is postop day #0 Patient is seen in the PACU, he was lying in bed awake and oriented but lethargic, somewhat poor historian. However he was denying any specific complaints other than pain of the surgical site. No chest pain or dyspnea. No abdominal pain. No headache weakness or numbness. He is hemodynamically stable, afebrile. No labs during this admission Are reviewed most recent labs from 02/22/2023: Hemoglobin 10.1, platelet count 278, WBC 4.0. INR 1.1 Electrolytes are normal, creatinine normal 0.6. There is no BMP is unremarkable. Glucose 115. Liver enzymes had elevated, bilirubin within the reference range. Urine analysis is negative for infection Infectious disease team on the case and he was covered with cefepime currently 03/15/2023 Patient today is more awake energetic sitting up in bed, she still feels somewhat weak and dehydrated. His blood pressure is soft, previously systolic blood pressure was around 120 and currently in the 90s with hemoglobin postoperatively is 7.5 and 7.1 compared to 10.1 preoperatively. Most likely patient was some blood during surgery therefore patient also have some postop hypotension however currently patient receiving normal saline at 70 mL/h. Patient has history of cardiomyopathy with ejection fraction 40-45% based on echocardiogram performed . Therefore recommend to give him a small bolus of 250 mm. Patient currently covered with IV cefepime and IV vancomycin. ID team on the case. Also he is on home dose of eliquis I reviewed the previous chart. Per note from 11/17/2021 by Kaylyn figueroa patient has A. fib (Paroxysmal atrial fibrillation [id number] score 2 His event monitor in 07/2021 showed brief episodes of paroxysmal atrial fibrillation) Objective - Vital Signs Vital signs: Vital Signs Temp 97.5 F L 03/15/23 07:17 Pulse 59 L 03/15/23 07:17 Resp 19 03/15/23 07:17 BP 96/61 03/15/23 07:17 Pulse Ox 96 03/15/23 10:01 FiO2 Intake & Output 03/14/23 03/15/2323 18:59 06:59 18:59 Intake Total 2100 Output Total 1000 125 125 Balance 1101 -125 -125 Weight 129.274 kg Intake: IV 2100 Output: Drainage 125 Left Knee 125 Urine 125 Estimated Blood Loss 1000 Other: Voiding Method Urinal Urinal - Exam GENERAL: The patient is alert and oriented x3, not in any acute distress. Well developed, well nourished. HEENT: Pupils are round and equally reacting to light. EOMI. No scleral icterus. No conjunctival pallor. Normocephalic, atraumatic. No pharyngeal erythema. No thyromegaly. CARDIOVASCULAR: S1 and S2 present. No murmurs, rubs, or gallops. PULMONARY: Chest is clear to auscultation, no wheezing , no crackles. ABDOMEN: Soft, nontender, nondistended, normoactive bowel sounds. No palpable organomegaly. -MUSCULOSKELETAL: No joint swelling or deformity. Left knee in a brace with distress and in a Place. Breast exam is deferred to surgery team EXTREMITIES: No cyanosis, clubbing, or pedal edema. NEUROLOGICAL: Gross neurological examination did not reveal any focal deficits. SKIN: No rashes. no petechiae. - Labs CBC & Chem 7: 03/15/23 05:46 Labs: Abnormal Lab Results - Last 24 Hours (Table) 03/14/23 03/15/23 Range/Units 20:35 05:46 RBC 2.70 L 2.42 L (4.30-5.90) m/uL Hgb 7.5 L 7.1 L (13.0-17.5) gm/dL Hct 25.6 L 23.2 L (39.0-53.0) % MCHC 29.2 L 30.6 L (31.0-37.0) g/dL RDW 17.5 H 17.3 H (11.5-15.5) % Lymphocytes # 0.3 L 0.60 L (1.0-4.8) k/uL Assessment and Plan Assessment: Left knee infection status post stage I revision of the left total knee with removal of implants and placement of antibiotic spacer. Status post wound VAC Expected Postoperative hypotension Expected postop anemia Hyperlipidemia Hypertension History of rheumatoid arthritis History of sleep apnea History of ulcerative colitis of kidney stone Obesity with BMI of 34.7 Paroxysmal atrial fibrillation on a blood thinner at home Plan: Orthopedic primary team on the case Infectious disease consult. Continue with cefepime, IV vancomycin was added Continue with normal saline 70 mL per hour. We'll give a small bullous Wound VAC in place Pain management Labs and medication were reviewed.. Continue same treatment. Continue with symptomatic treatment. Resume home medication. Monitor labs and vitals. DVT and GI prophylaxis. Further recommendations as per clinical course of the patient DVT prophylaxis: Eliquмарина GI Prophylaxis: Mima Thank you for consulting us, we will follow up
[2023-03-15] MEDS: SENNOSIDES-DOCUSATE SODIUM 1 EACH TAB PO SCH (20:12)
[2023-03-15] MEDS: VANCOMYCIN 2,000 MG in SODIUM CHLORIDE 0.9% 500 ML 500 ML IVPB SCH (20:53)
[2023-03-16] MEDS: CEFEPIME 2 GM in SODIUM CHLORIDE 0.9% 100 ML IVPB SCH ×3 (00:59→16:23)
[2023-03-16] MEDS: HYDROmorphone 0.5 MG/0.5 ML SYRINGE IVP PRN ×2 (00:59→20:01)
[2023-03-16] MEDS: HYDROcodone/APAP 7.5-325MG 1 EACH TAB PO PRN ×2 (03:07→08:12)
[2023-03-16] MEDS: VANCOMYCIN 2,000 MG in SODIUM CHLORIDE 0.9% 500 ML 500 ML IVPB SCH ×3 (04:15→21:38)
[2023-03-16] MEDS: LACTATED RINGERS 1,000 ML IV SCH (04:19)
[2023-03-16] MEDS: SODIUM CHLORIDE 0.9% 1,000 ML IV SCH ×2 (06:42→20:53)
[2023-03-16] MEDS: APIXABAN 5 MG TAB PO SCH ×2 (08:39→20:00)
--- NOTE | 2023-03-16 12:05 | P.PN ---
Subjective Progress Note Date: 03/16/23 This is a 72-year-old male who is status post stage I revision left total knee with removal of implants and placement of antibiotic spacer. This is postoperative day #2 and patient is seen and evaluated at bedside today. Patient states that the knee is quite sore and the pain medication is not lasting long enough between doses. Patient denies any lightheadedness, fever/chills, numbness, weakness, tingling, abdominal pain, shortness of breath or chest pain. Objective - Vital Signs Vital signs: Vital Signs Temp 98.1 F 03/16/23 07:56 Pulse 65 03/16/23 08:15 Resp 18 03/16/23 07:56 BP 108/67 03/16/23 07:56 Pulse Ox 97 03/16/23 09:01 FiO2 Intake & Output 03/15/23 03/16/23 03/16/23 18:59 06:59 18:59 Output Total 1245 4125 Balance -1245 -4125 Output: Drainage 170 100 Left Knee 170 100 Urine 1075 4025 Straight 950 1000 Uretheral (Wen) 1200 Other: Voiding Method Indwelling Catheter # Voids 2 - Exam Vital signs are stable. Patient is in no acute distress and is alert and oriented 3. Calf is soft and nontender to palpation. Prevena wound VAC is clean, dry, and intact. Patient has full foot and ankle motion without pain or difficulty. Sensation intact. Neurovascular status and circulatory status are intact. - Labs CBC & Chem 7: 03/15/23 05:46 03/15/23 05:46 Labs: Abnormal Lab Results - Last 24 Hours (Table) 03/15/23 Range/Units 05:46 Creatinine 0.58 L (0.66-1.25) mg/dL Microbiology - Last 24 Hours (Table) 03/14/23 13:11 Gram Stain - Preliminary Knee - Left Wound Culture - Preliminary 03/14/23 13:12 Gram Stain - Preliminary Knee - Left Wound Culture - Preliminary Assessment and Plan Assessment: Status post stage I revision left total knee with removal of implants and placement of antibiotic spacer. (1) Infection of total left knee replacement Current Visit: Yes Status: Acute Code(s): T84.54XA - INFECT/INFLM REACTION DUE TO INTERNAL LEFT KNEE PROSTH, INIT SNOMED Code(s): 774847883 (2) History of total left knee replacement Current Visit: No Status: Acute Code(s): Z96.652 - PRESENCE OF LEFT ARTIFICIAL KNEE JOINT SNOMED Code(s): 6674210642506 Plan: #1 Continue with routine postoperative care and pain control, leave Prevena wound vac in place x7 days. Drain is removed today. #2 Patient has resumed Eliquis. #3 Physical therapy today. #4 Appreciate input from internal medicine and infectious disease. #5 Cultures are pending. Antibiotics per infectious disease. #6 Hemoglobin is pending. #7 Anticipate discharge in the next 48-72 hours pending cultures, PICC line and discharge antibiotic determination. Patient may need ECF placement.
[2023-03-16] MEDS ORDERED: GABAPENTIN 300 MG CAP PO PRN (12:06)
--- NOTE | 2023-03-16 12:31 | CDI ---
Documentation Clarification Form Date: 03/16/2023 12:30:39 PM From: Alva Dial RN, CCDS Admit Date: 03/14/2023 09:40:00 AM Patient Name: Pal Rose Visit Number: [id number] Discharge Date: ATTENTION: The Clinical Documentation Specialists (CDI) and [facility] Coding Staff appreciate your assistance in clarifying documentation. Please respond to the clarification below the line at the bottom and electronically sign. The CDI & [facility] Coding staff will review the response and follow-up if needed. Please note: Queries are made part of the Legal Health Record. If you have any questions, please contact the author of this message via ITS. Dr. Lyly Messer Expected postop anemia is documented in the progress note on 03/15/23. Additional specificity regarding the type, acuity of anemia is requested. History/Risk Factors: Clinical indicators: 72-year-old male present for left knee infection and had stage I revision of the left total knee with removal of implants and placement of antibiotic spacer. 03/14 Operative note: Estimated blood loss (ml): 1,000 02/22/23 ( Preop) HGB 10.1 HCT 33.0 03/14 HGB 7.5 HCT 25.6 03/15 HGB 7.1 HCT 23.2 Treatment: Monitor Labs and vitals per orders .9NS 250 ML Bolus 03/15 Please clarify the type and acuity of anemia: [ ] Acute blood loss anemia, Expected. [ ] Unable to determine [ ] Other, please specify (Template Last Revised: September 2020) Acute blood loss anemia, Expected. MTDD
[2023-03-16] MEDS: TAMSULOSIN 0.4 MG CAP.ER.24H PO SCH (13:38)
[2023-03-16] MEDS: HYDROcodone/APAP 10-325MG 1 EACH TAB PO PRN ×2 (13:38→18:06)
[2023-03-16 14:22] LABS: Blood Urea Nitrogen 8.1 mg/dL (9.0-27.0); Calcium 8.1 mg/dL (8.7-10.3); Carbon Dioxide 29.3 mmol/L (21.6-31.8); Chloride 102 mmol/L (96-109); Glucose 111 mg/dL (70-110); Sodium 139 mmol/L (135-145)
[2023-03-16 14:29] LABS: Basophils # (A) 0.04 X 10*3/uL (0.00-0.10); Basophils % (A) 0.7 %; Eosinophils # (A) 0.14 X 10*3/uL (0.04-0.35); Eosinophils % (A) 2.6 %; HCT 25.4 % (39.6-50.0); HGB 7.7 d/dL (13.0-17.0); Lymphocytes # (A) 0.58 X 10*3/uL (0.90-5.00); Lymphocytes % (A) 10.8 %; MCH 29.3 pg (27.0-32.0); MCHC 30.3 d/dL (32.0-37.0); MCV 96.6 FL (80.0-97.0); Monocytes # (A) 0.39 X 10*3/uL (0.20-1.00); Monocytes % (A) 7.3 %; NRBC Per 100 WBC 0 X 10*3/uL (0.00-0.01); Neutrophils # (A) 4.16 X 10*3/uL (1.80-7.70); Neutrophils % (A) 77.9 %; Platelet Count 275 X 10*3/uL (140-440); RBC 2.63 X 10*6/uL (4.40-5.60); RDW 17.7 % (11.5-14.5); WBC 5.35 X 10*3/uL (4.50-10.00)
--- NOTE | 2023-03-16 14:58 | P.PN ---
Subjective Progress Note Date: 03/15/23 Principal diagnosis: Left knee septic arthritis Patient is a 72-year-old male with a past medical history significant for osteoarthritis in this patient with a history of left knee replacement rheumatoid arthritis hypertension hyperlipidemia sleep apnea patient did have a history of left knee septic arthritis that was treated with I&D and antibiotic bead placement patient subsequently admitted to the hospital and the patient is status post stage I procedure with removal of the infected knee and placement of antibiotic spacer. On today's evaluation early 03/16/2023, the patient denies having any fever or any chills, the patient pain to the left is currently controlled with pain medication patient denies having any chest pain shortness of breath or cough no nausea no vomiting no abdominal pain and no diarrhea Objective - Vital Signs Vital signs: Vital Signs Temp 97.5 F L 03/15/23 07:17 Pulse 59 L 03/15/23 07:17 Resp 19 03/15/23 07:17 BP 96/61 03/15/23 07:17 Pulse Ox 96 03/15/23 10:01 FiO2 Intake & Output 03/14/23 03/15/23 03/15/23 18:59 06:59 18:59 Intake Total 2100 Output Total 1000 125 125 Balance 1101 -125 -125 Weight 129.274 kg Intake: IV 2100 Output: Drainage 125 Left Knee 125 Urine 125 Estimated Blood Loss 1000 Other: Voiding Method Urinal Urinal - Exam GENERAL DESCRIPTION: An elderly male lying in bed in no distress RESPIRATORY SYSTEM: Unlabored breathing , decreased breath sounds at bases HEART: S1 S2 regular rate and rhythm , ABDOMEN: Soft , no tenderness EXTREMITIES: Left knee is currently dressed in OR dressing - Labs CBC & Chem 7: 03/16/23 07:56 03/16/23 07:56 Labs: Abnormal Lab Results - Last 24 Hours (Table) 03/14/23 03/15/23 Range/Units 20:35 05:46 RBC 2.70 L 2.42 L (4.30-5.90) m/uL Hgb 7.5 L 7.1 L (13.0-17.5) gm/dL Hct 25.6 L 23.2 L (39.0-53.0) % MCHC 29.2 L 30.6 L (31.0-37.0) g/dL RDW 17.5 H 17.3 H (11.5-15.5) % Lymphocytes # 0.3 L 0.60 L (1.0-4.8) k/uL Assessment and Plan (1) Infection of total left knee replacement Current Visit: Yes Status: Acute Code(s): T84.54XA - INFECT/INFLM REACTION DUE TO INTERNAL LEFT KNEE PROSTH, INIT SNOMED Code(s): 361713750 Plan: 1patient with left knee septic arthritis at this patient failing medical and conservative therapy in this patient who is status post stage I procedure with removal of the infected prosthesis with placement of antibiotic spacer previous culture positive for Enterobacter could be the same pathogen 2Patient to continue with cefepime 2 g every 8 hours, however will add vancomycin while waiting for the culture finalized Dictation was produced using [employer] dictation software. please excuse any grammatical, word or spelling errors. Time with Patient: Less than 30
--- NOTE | 2023-03-16 15:00 | P.PN ---
Subjective Progress Note Date: 03/16/23 Principal diagnosis: Left knee septic arthritis Patient is a 72-year-old male with a past medical history significant for osteoarthritis in this patient with a history of left knee replacement rheumatoid arthritis hypertension hyperlipidemia sleep apnea patient did have a history of left knee septic arthritis that was treated with I&D and antibiotic bead placement patient subsequently admitted to the hospital and the patient is status post stage I procedure with removal of the infected knee and placement of antibiotic spacer. On today's evaluation that is 03/16/2023, the patient remains to be febrile, the patient pain to the left is currently controlled with pain medication patient denies having any chest pain shortness of breath or cough no nausea no vomiting no abdominal pain and no diarrhea, patient did have urinary retention requiring Wen catheter placement Objective - Vital Signs Vital signs: Vital Signs Temp 98.1 F 03/16/23 07:56 Pulse 65 03/16/23 08:15 Resp 18 03/16/23 07:56 BP 108/67 03/16/23 07:56 Pulse Ox 97 03/16/23 09:01 FiO2 Intake & Output 03/15/23 03/16/23 03/16/23 18:59 06:59 18:59 Output Total 1245 4125 Balance -1245 -4125 Output: Drainage 170 100 Left Knee 170 100 Urine 1075 4025 Straight 950 1000 Uretheral (Wen) 1200 Other: Voiding Method Indwelling Catheter # Voids 2 - Exam GENERAL DESCRIPTION: An elderly male lying in bed in no distress RESPIRATORY SYSTEM: Unlabored breathing , decreased breath sounds at bases HEART: S1 S2 regular rate and rhythm , ABDOMEN: Soft , no tenderness EXTREMITIES: Left knee is currently dressed in OR dressing - Labs CBC & Chem 7: 03/16/23 07:56 03/16/23 07:56 Labs: Microbiology - Last 24 Hours (Table) 03/14/23 13:11 Gram Stain - Preliminary Knee - Left Wound Culture - Preliminary 03/14/23 13:12 Gram Stain - Preliminary Knee - Left Wound Culture - Preliminary Assessment and Plan (1) Infection of total left knee replacement Current Visit: Yes Status: Acute Code(s): T84.54XA - INFECT/INFLM REACTION DUE TO INTERNAL LEFT KNEE PROSTH, INIT SNOMED Code(s): 557413035 Plan: 1patient with left knee septic arthritis at this patient failing medical and conservative therapy in this patient who is status post stage I procedure with removal of the infected prosthesis with placement of antibiotic spacer previous culture positive for Enterobacter could be the same pathogen 2Patient to continue with cefepime 2 g every 8 hours and vancomycin while waiting for the culture finalized, we will order a PICC line for outpatient IV antibiotic therapy Dictation was produced using [employer] dictation software. please excuse any grammatical, word or spelling errors. Time with Patient: Less than 30
[2023-03-16 15:35] LABS: Erythrocyte Sedimentation Rate 27 mm/Hr (0-20)
[2023-03-16] MEDS ORDERED: VANCOMYCIN TROUGH DUE 1 EACH MISC MISCELLANE ONE (19:00)
[2023-03-16] MEDS: SENNOSIDES-DOCUSATE SODIUM 1 EACH TAB PO SCH (20:00)
[2023-03-16] MEDS: VANCOMYCIN 1,750 MG in SODIUM CHLORIDE 0.9% 500 ML 500 ML IVPB SCH (21:06)
--- NOTE | 2023-03-17 00:03 | PN ---
PROGRESS NOTE DATE OF SERVICE: 03/16/2023 SUBJECTIVE: This is a 72-year-old gentleman admitted with left knee infection, also had anemia. The patient had antibiotic spacer placement. The patient had enterobacter cloacae grown from the previous. The patient is on broad spectrum IV antibiotics. PAST MEDICAL HISTORY: Reviewed. REVIEW OF SYSTEMS: A 14-point review is negative except as mentioned earlier. PHYSICAL EXAMINATION: VITAL SIGNS: Pulse is 65, blood pressure 108/60, respirations 18. HEENT: Conjunctivae normal. NECK: No JVD. CARDIOVASCULAR: S1, S2. RESPIRATIONS: Breath sounds diminished at the bases. ABDOMEN: Soft. LEGS: Status post surgery. LABORATORY DATA: Hemoglobin 7.1. The rest of the labs are noted. ASSESSMENT: 1. Left knee infection, status post revision and antibiotic spacer placement. 2. History of previous enterobacter cloacae infection. 3. Expected postoperative anemia. 4. Hypertension. 5. Hyperlipidemia. 6. History of rheumatoid arthritis. 7. Multiple medical issues. RECOMMENDATIONS: Recommend to continue current medications, continue symptomatic treatment. Recommend repeat labs. Continue the antibiotics. Await final ID. If hemoglobin less than 7, I would recommend 1 unit of blood transfusion. See orders for further details. Further recommendations to follow. MMODL / IJN: [id number] /
[2023-03-17] MEDS: HYDROcodone/APAP 10-325MG 1 EACH TAB PO PRN ×3 (00:34→15:33)
[2023-03-17] MEDS: CEFEPIME 2 GM in SODIUM CHLORIDE 0.9% 100 ML IVPB SCH ×3 (00:35→15:38)
[2023-03-17] MEDS: LACTATED RINGERS 1,000 ML IV SCH (05:29)
[2023-03-17] MEDS: VANCOMYCIN 1,750 MG in SODIUM CHLORIDE 0.9% 500 ML 500 ML IVPB SCH ×3 (05:32→20:52)
[2023-03-17] MEDS: HYDROmorphone 0.5 MG/0.5 ML SYRINGE IVP PRN (10:02)
[2023-03-17] MEDS ORDERED: LIDOCAINE 1% INJ 10MG/ML (5 ML VIAL-PF) SQ ONE (10:24)
[2023-03-17] MEDS: APIXABAN 5 MG TAB PO SCH ×3 (10:31→20:48)
[2023-03-17] MEDS: TAMSULOSIN 0.4 MG CAP.ER.24H PO SCH ×2 (10:31→10:45)
--- NOTE | 2023-03-17 10:38 | P.OP ---
Date of Procedure: 03/17/23 Description of Procedure: Date of Procedure: Preoperative Diagnosis: Need for long-term IV antibiotic access. Postoperative Diagnosis: Same. Procedure(s) Performed: Ultrasound-guided cannulation left brachial vein. Insertion of peripherally inserted central catheter under fluoroscopic guidance. Anesthesia: local 1% lidocaine plain Surgeon: Behzad Estimated Blood Loss (ml): 5 IV fluids (ml): 0 Urine output (ml): 0 Pathology: none sent Condition: stable Disposition: no change Indications for Procedure: Patient is a is a 72-year-old male with a septic arthritis.Patient will require long-term IV antibiotics as an outpatient patient is offered a PICC line to allow for intravenous administration of antibiotics. Description of Procedure: Patient was brought to the special procedure suite. The left upper extremity sterilely prepped and draped in usual manner. Ultrasound was utilized to identify the brachial vein which was normally compressible free of visible thrombus. There was no visualization of basilic vein noted. Permenant image was stored. 1% Xylocaine was utilized for local anesthesia tissues overlying the vein. Through this anesthetized area and with the aid of ultrasound a micropuncture needle was utilized to cannulate the vein. Once cannulated, Softip guidewire was advanced into the vein. The needle was withdrawn and a micropuncture sheath and dilator advanced over the guidewire. The guidewire was withdrawn and exchanged for the PICC guidewire and measured 51 cm to the cavoatrial junction. The catheter was cut to size and advanced into the cavoatrial junction without resistance. The sheath was peeled away. Blood was easily withdrawn through the catheter and the catheter was then flushed with heparinized saline solution and secured to the skin. Patient tolerated procedure well and was returned to their room in satisfactory and stable condition.
[2023-03-17] MEDS: SODIUM CHLORIDE 0.9% 1,000 ML IV SCH (13:12)
[2023-03-17 13:40] LABS: Basophils # (A) 0.03 X 10*3/uL (0.00-0.10); Basophils % (A) 0.5 %; Eosinophils # (A) 0.11 X 10*3/uL (0.04-0.35); Eosinophils % (A) 1.9 %; HCT 24.8 % (39.6-50.0); HGB 7.4 d/dL (13.0-17.0); Lymphocytes # (A) 0.61 X 10*3/uL (0.90-5.00); Lymphocytes % (A) 10.3 %; MCH 28.9 pg (27.0-32.0); MCHC 29.8 d/dL (32.0-37.0); MCV 96.9 FL (80.0-97.0); Mean Platelet Volume 9.8 FL (9.5-12.2); Monocytes # (A) 0.52 X 10*3/uL (0.20-1.00); Monocytes % (A) 8.8 %; NRBC Per 100 WBC 0 X 10*3/uL (0.00-0.01); Neutrophils # (A) 4.62 X 10*3/uL (1.80-7.70); Platelet Count 287 X 10*3/uL (140-440); RBC 2.56 X 10*6/uL (4.40-5.60); WBC 5.92 X 10*3/uL (4.50-10.00)
[2023-03-17] MEDS ORDERED: HYDROcodone/APAP 10-325MG 1 EACH TAB PO PRN (14:41)
--- NOTE | 2023-03-17 14:41 | P.PN ---
Subjective Progress Note Date: 03/17/23 Principal diagnosis: Left knee septic arthritis This is a 72-year-old male who is status post stage I revision left total knee with removal of implants and placement of antibiotic spacer. This is postoperative day #3 and patient is seen and evaluated at bedside today. Patient continues with pain as expected. Patient denies any lightheadedness, fever/chills, numbness, weakness, tingling, abdominal pain, shortness of breath or chest pain. Objective - Vital Signs Vital signs: Vital Signs Temp 98.4 F 03/17/23 08:00 Pulse 66 03/17/23 08:00 Resp 16 03/17/23 08:02 BP 136/68 03/17/23 08:00 Pulse Ox 98 03/17/23 12:04 FiO2 Intake & Output 03/16/23 03/17/23 03/17/23 18:59 06:59 18:59 Output Total 1100 2530 Balance -1100 -2530 Output: Urine 1100 2530 Other: Voiding Method Indwelling Catheter Indwelling Catheter - Exam Vital signs are stable. Patient is in no acute distress and is alert and oriented 3. Calf is soft and nontender to palpation. Prevena wound VAC is clean, dry, and intact. Patient has full foot and ankle motion without pain or difficulty. Sensation intact. Neurovascular status and circulatory status are intact. - Constitutional General appearance: Present: no acute distress - Labs CBC & Chem 7: 03/17/23 08:03 03/16/23 07:56 Labs: Abnormal Lab Results - Last 24 Hours (Table) 03/16/23 03/17/23 Range/Units 07:56 08:03 RBC 2.56 L (4.40-5.60) X 10*6/uL Hgb 7.4 L (13.0-17.0) d/dL Hct 24.8 L (39.6-50.0) % MCHC 29.8 L (32.0-37.0) d/dL RDW 18.0 H (11.5-14.5) % Lymphocytes # 0.61 L (0.90-5.00) X 10*3/uL ESR 27 H (0-20) mm/Hr Microbiology - Last 24 Hours (Table) 03/14/23 13:12 Anaerobic Culture - Preliminary Knee - Left 03/14/23 13:11 Anaerobic Culture - Preliminary Knee - Left 03/14/23 13:11 Gram Stain - Final Knee - Left Wound Culture - Final 03/14/23 13:12 Gram Stain - Final Knee - Left Wound Culture - Final Assessment and Plan (1) Infection of total left knee replacement Narrative/Plan: PICC line has been placed. Continue with routine postoperative care and pain control, leave Prevena wound vac in place x7 days. Continue PT and DVT prophylaxis. Awaiting antibiotic recommendations for D/C to home vs ECF. Anticipate D/C Monday Current Visit: Yes Status: Acute Priority: Medium Code(s): T84.54XA - INFECT/INFLM REACTION DUE TO INTERNAL LEFT KNEE PROSTH, INIT SNOMED Code(s): 478668640 Time with Patient: Less than 30
--- NOTE | 2023-03-17 15:12 | PN ---
PROGRESS NOTE DATE OF SERVICE: 03/17/2023 SUBJECTIVE: This is a 72-year-old gentleman admitted with left knee infection with PICC line placed today. The patient is on empiric antibiotics. Final cultures are pending. OBJECTIVE: VITAL SIGNS: Pulse is 66, blood pressure 130/60, respirations 16. CHEST: Clear to auscultation. CARDIOVASCULAR: S1 and S2. ABDOMEN: Soft. MUSCULOSKELETAL: Left knee infection present. Bilateral leg swelling also present. LABORATORY DATA: Hemoglobin 7.4. ASSESSMENT: 1. Left knee infection, status post revision and antibiotic spacer placement. 2. History of previous Enterobacter cloacae infection. 3. Expected postoperative anemia. 4. Hypertension. RECOMMENDATIONS: Recommend to continue current medications. Continue symptomatic treatment. Otherwise, recommend repeat labs in the morning, antibiotics, PICC line care. Further recommendations to follow. MMODL / IJN: [id number] /
[2023-03-17 15:32] LABS: ALT 9 U/L (10-49); AST 13 U/L (14-35); Albumin 3.2 d/dL (3.8-4.9); Albumin/Globulin Ratio 1.28 Ratio (1.60-3.17); Alkaline Phosphatase 59 U/L (41-126); Blood Urea Nitrogen 7.8 mg/dL (9.0-27.0); Calcium 8.4 mg/dL (8.7-10.3); Carbon Dioxide 29.3 mmol/L (21.6-31.8); Chloride 102 mmol/L (96-109); Globulin 2.5 d/dL (1.6-3.3); Glucose 120 mg/dL (70-110); Potassium 4.1 mmol/L (3.5-5.5); Sodium 139 mmol/L (135-145); Total Bilirubin 0.3 mg/dL (0.3-1.2); Total Protein 5.7 d/dL (6.2-8.2)
[2023-03-17] MEDS: BACLOFEN 10 MG TAB PO SCH ×2 (15:34→21:00)
--- NOTE | 2023-03-17 15:38 | P.PN ---
Subjective Progress Note Date: 03/17/23 Principal diagnosis: Left knee septic arthritis Patient is a 72-year-old male with a past medical history significant for osteoarthritis in this patient with a history of left knee replacement rheumatoid arthritis hypertension hyperlipidemia sleep apnea patient did have a history of left knee septic arthritis that was treated with I&D and antibiotic bead placement patient subsequently admitted to the hospital and the patient is status post stage I procedure with removal of the infected knee and placement of antibiotic spacer. On today's evaluation that is 03/17/2023, the patient continues to be febrile, the patient pain to the left knee is controlled with pain medication patient denies having any chest pain shortness of breath or cough no nausea no vomiting no abdominal pain and no diarrhea, no new symptoms Objective - Vital Signs Vital signs: Vital Signs Temp 98.4 F 03/17/23 08:00 Pulse 66 03/17/23 08:00 Resp 16 03/17/23 08:02 BP 136/68 03/17/23 08:00 Pulse Ox 99 03/17/23 08:00 FiO2 Intake & Output 03/16/23 03/17/23 03/17/23 18:59 06:59 18:59 Output Total 1100 2530 Balance -1100 -2530 Output: Urine 1100 2530 Other: Voiding Method Indwelling Catheter Indwelling Catheter - Exam GENERAL DESCRIPTION: An elderly male lying in bed in no distress RESPIRATORY SYSTEM: Unlabored breathing , decreased breath sounds at bases HEART: S1 S2 regular rate and rhythm , ABDOMEN: Soft , no tenderness EXTREMITIES: Left knee is currently dressed in OR dressing - Labs CBC & Chem 7: 03/17/23 08:03 03/17/23 08:03 Labs: Abnormal Lab Results - Last 24 Hours (Table) 03/16/23 03/16/23 Range/Units 07:56 07:56 RBC 2.63 L (4.40-5.60) X 10*6/uL Hgb 7.7 L (13.0-17.0) d/dL Hct 25.4 L (39.6-50.0) % MCHC 30.3 L (32.0-37.0) d/dL RDW 17.7 H (11.5-14.5) % Lymphocytes # 0.58 L (0.90-5.00) X 10*3/uL ESR 27 H (0-20) mm/Hr BUN 8.1 L (9.0-27.0) mg/dL Creatinine 0.5 L (0.6-1.5) mg/dL Glucose 111 H (70-110) mg/dL Calcium 8.1 L (8.7-10.3) mg/dL C-Reactive Protein 2.30 H (0.00-0.80) mg/dL Microbiology - Last 24 Hours (Table) 03/14/23 13:12 Anaerobic Culture - Preliminary Knee - Left 03/14/23 13:11 Anaerobic Culture - Preliminary Knee - Left 03/14/23 13:11 Gram Stain - Final Knee - Left Wound Culture - Final 03/14/23 13:12 Gram Stain - Final Knee - Left Wound Culture - Final Assessment and Plan (1) Infection of total left knee replacement Current Visit: Yes Status: Acute Priority: Medium Code(s): T84.54XA - INFECT/INFLM REACTION DUE TO INTERNAL LEFT KNEE PROSTH, INIT SNOMED Code(s): 251196406 Plan: 1patient with left knee septic arthritis at this patient failing medical and conservative therapy in this patient who is status post stage I procedure with removal of the infected prosthesis with placement of antibiotic spacer previous culture positive for Enterobacter could be the same pathogen 2Patient to continue with cefepime 2 g every 8 hours and vancomycin while waiting for the culture finalized, patient did get a PICC line placement by vascular surgery today discharge antibodies on the base of final culture Dictation was produced using [employer] dictation software. please excuse any grammatical, word or spelling errors. Time with Patient: Less than 30
[2023-03-17] MEDS: azaTHIOprine 50 MG TAB PO SCH ×2 (16:07→21:00)
[2023-03-17] MEDS: clonazePAM 1 MG TAB PO SCH (20:47)
[2023-03-17] MEDS: rOPINIRole HCL 4 MG TABLET PO SCH (20:48)
[2023-03-17] MEDS: SENNOSIDES-DOCUSATE SODIUM 1 EACH TAB PO SCH (20:48)
[2023-03-17] MEDS: DOXAZOSIN 4 MG TAB PO SCH (20:48)
[2023-03-18] MEDS: CEFEPIME 2 GM in SODIUM CHLORIDE 0.9% 100 ML IVPB SCH ×3 (01:53→16:17)
[2023-03-18] MEDS: HYDROcodone/APAP 10-325MG 1 EACH TAB PO PRN ×2 (01:58→16:40)
[2023-03-18 04:44] LABS: African American GFR (CKD) >90 (>60 ml/min/1.73 sqM); Anion Gap 2 mmol/L; Blood Urea Nitrogen 8 mg/dL (9-20); Calcium 7.9 mg/dL (8.4-10.2); Carbon Dioxide 31 mmol/L (22-30); Chloride 101 mmol/L (98-107); Glucose 90 mg/dL (74-99); Non-African American GFR(CKD) >90 (>60 ml/min/1.73 sqM); Potassium 3.9 mmol/L (3.5-5.1); Sodium 134 mmol/L (137-145)
[2023-03-18] MEDS: VANCOMYCIN 1,750 MG in SODIUM CHLORIDE 0.9% 500 ML 500 ML IVPB SCH ×3 (05:53→22:39)
[2023-03-18] MEDS: SODIUM CHLORIDE 0.9% 1,000 ML IV SCH ×2 (06:05→16:56)
[2023-03-18] MEDS: DOXAZOSIN 4 MG TAB PO SCH ×2 (08:23→22:39)
[2023-03-18] MEDS: ATORVASTATIN 40 MG TAB PO SCH (08:23)
[2023-03-18] MEDS: BACLOFEN 10 MG TAB PO SCH ×3 (08:23→22:37)
[2023-03-18] MEDS: FOLIC ACID 1 MG TAB PO SCH (08:23)
[2023-03-18] MEDS: CALCIUM CARBONATE 500 MG CHEWABLE PO SCH (08:23)
[2023-03-18] MEDS: allopurinoL 300 MG TAB PO SCH (08:23)
[2023-03-18] MEDS: azaTHIOprine 50 MG TAB PO SCH ×3 (08:23→22:38)
[2023-03-18] MEDS: APIXABAN 5 MG TAB PO SCH ×2 (08:24→22:38)
[2023-03-18] MEDS: lisinopriL 20 MG TAB PO SCH (08:24)
[2023-03-18] MEDS: TAMSULOSIN 0.4 MG CAP.ER.24H PO SCH (08:24)
[2023-03-18] MEDS: clonazePAM 1 MG TAB PO SCH ×2 (08:24→22:39)
[2023-03-18] MEDS: LACTATED RINGERS 1,000 ML IV SCH (08:25)
--- NOTE | 2023-03-18 09:13 | IR ---
EXAMINATION TYPE: IR cvc insert >=5 years DATE OF EXAM: 03/17/2023 COMPARISON: NONE HISTORY: Antibiotics, 51 cm left basilic, fluoroscopy time 0.3 minutes, DAP 2.0546 Gycm2 Fluoroscopy was provided to the referring clinician.
[2023-03-18 10:42] LABS: Basophils # (A) 0.04 X 10*3/uL (0.00-0.10); Basophils % (A) 0.7 %; Elliptocytes 2+; Eosinophils # (A) 0.24 X 10*3/uL (0.04-0.35); Eosinophils % (A) 4.2 %; HCT 21.9 % (39.6-50.0); HGB 6.7 d/dL (13.0-17.0); Lymphocytes # (A) 0.82 X 10*3/uL (0.90-5.00); Lymphocytes % (A) 14.5 %; MCH 29.8 pg (27.0-32.0); MCHC 30.6 d/dL (32.0-37.0); MCV 97.3 FL (80.0-97.0); Mean Platelet Volume 9.9 FL (9.5-12.2); Monocytes # (A) 0.66 X 10*3/uL (0.20-1.00); Monocytes % (A) 11.7 %; NRBC Per 100 WBC 0 X 10*3/uL (0.00-0.01); Neutrophils # (A) 3.86 X 10*3/uL (1.80-7.70); Neutrophils % (A) 68.4 %; Platelet Count 262 X 10*3/uL (140-440); RBC 2.25 X 10*6/uL (4.40-5.60); RDW 18.3 % (11.5-14.5); WBC 5.65 X 10*3/uL (4.50-10.00)
[2023-03-18] MEDS ORDERED: FUROSEMIDE 10 MG/ML 2 ML VIAL IV ONE ×2 (11:00→20:30)
--- NOTE | 2023-03-18 11:42 | P.PN ---
Subjective Progress Note Date: 03/18/23 Principal diagnosis: Left knee septic arthritis This is a 72-year-old male who is status post stage I revision left total knee with removal of implants and placement of antibiotic spacer. This is postoperative day #4 and patient is seen and evaluated at bedside today. Patient continues with pain as expected but is controlled on oral medication now. Patient denies any lightheadedness, fever/chills, numbness, weakness, tingling, abdominal pain, shortness of breath or chest pain. Objective - Vital Signs Vital signs: Vital Signs Temp 98.6 F 03/18/23 06:35 Pulse 62 03/18/23 06:35 Resp 17 03/18/23 06:35 BP 130/82 03/18/23 06:35 Pulse Ox 96 03/18/23 08:42 FiO2 Intake & Output 03/17/23 03/18/23 03/18/23 18:59 06:59 18:59 Intake Total 1080 Output Total 1450 1400 Balance -370 -1400 Intake: Oral 1080 Output: Urine 1450 1400 Other: Voiding Method Indwelling Catheter Indwelling Catheter - Exam Vital signs are stable. Patient is in no acute distress and is alert and oriented 3. Calf is soft and nontender to palpation. Prevena wound VAC is clean, dry, and intact. Patient has full foot and ankle motion without pain or difficulty. Sensation intact. Neurovascular status and circulatory status are intact. - Constitutional General appearance: Present: no acute distress - Labs CBC & Chem 7: 03/18/23 04:09 03/18/23 04:09 Labs: Abnormal Lab Results - Last 24 Hours (Table) 03/17/23 03/17/23 03/18/23 Range/Units 08:03 08:03 04:09 RBC 2.56 L (4.40-5.60) X 10*6/uL Hgb 7.4 L (13.0-17.0) d/dL Hct 24.8 L (39.6-50.0) % MCV (80.0-97.0) FL MCHC 29.8 L (32.0-37.0) d/dL RDW 18.0 H (11.5-14.5) % Lymphocytes # 0.61 L (0.90-5.00) X 10*3/uL Elliptocytes Sodium 134 L (137-145) mmol/L Carbon Dioxide 31 H (22-30) mmol/L BUN 7.8 L 8 L (9.0-27.0) mg/dL Creatinine 0.5 L 0.47 L (0.6-1.5) mg/dL Glucose 120 H (70-110) mg/dL Calcium 8.4 L 7.9 L (8.7-10.3) mg/dL AST 13 L (14-35) U/L ALT 9 L (10-49) U/L Total Protein 5.7 L (6.2-8.2) d/dL Albumin 3.2 L (3.8-4.9) d/dL Albumin/Globulin Ratio 1.28 L (1.60-3.17) Ratio 03/18/23 Range/Units 04:09 RBC 2.25 L (4.40-5.60) X 10*6/uL Hgb 6.7 H* (13.0-17.0) d/dL Hct 21.9 L (39.6-50.0) % MCV 97.3 H (80.0-97.0) FL MCHC 30.6 L (32.0-37.0) d/dL RDW 18.3 H (11.5-14.5) % Lymphocytes # 0.82 L (0.90-5.00) X 10*3/uL Elliptocytes 2+ A Sodium (137-145) mmol/L Carbon Dioxide (22-30) mmol/L BUN (9.0-27.0) mg/dL Creatinine (0.6-1.5) mg/dL Glucose (70-110) mg/dL Calcium (8.7-10.3) mg/dL AST (14-35) U/L ALT (10-49) U/L Total Protein (6.2-8.2) d/dL Albumin (3.8-4.9) d/dL Albumin/Globulin Ratio (1.60-3.17) Ratio Assessment and Plan (1) Infection of total left knee replacement Narrative/Plan: PICC line has been placed. Continue with routine postoperative care and pain control, leave Prevena wound vac in place x7 days. Continue PT and DVT prophylaxis. Awaiting antibiotic recommendations for D/C to home vs ECF. Anticipate D/C Monday Current Visit: Yes Status: Acute Priority: Medium Code(s): T84.54XA - INFECT/INFLM REACTION DUE TO INTERNAL LEFT KNEE PROSTH, INIT SNOMED Code(s): 535876033 Time with Patient: Less than 30
--- NOTE | 2023-03-18 13:08 | US ---
EXAMINATION TYPE: US venous doppler duplex LE BI DATE OF EXAM: 03/18/2023 10:46 AM Exam done portable COMPARISON: Left lower extremity venous ultrasound 11/14/2021 CLINICAL INDICATION: Male, 72 years old with history of edema bilateral legs; Patient on blood thinne rs SIDE PERFORMED: Bilateral TECHNIQUE: The lower extremity deep venous system is examined utilizing real time linear array sonog [place] with graded compression, doppler sonography and color-flow sonography. VESSELS IMAGED: Common Femoral Vein Deep Femoral Vein Greater Saphenous Vein * Femoral Vein Popliteal Vein Small Saphenous Vein * Proximal Calf Veins (* superficial vessels) Grayscale, color doppler, spectral doppler imaging performed of the deep veins of the lower extremiti es. There is normal flow, compressibility, vascular waveforms. Right Leg: Appears negative for DVT Left Leg: Appears negative for DVT IMPRESSION: No ultrasound evidence for deep venous thrombosis of the bilateral lower extremities.
--- NOTE | 2023-03-18 14:25 | PN ---
PROGRESS NOTE DATE OF SERVICE: 03/18/2023 SUBJECTIVE: This is a 72-year-old gentleman who was admitted with left knee infection, had PICC line in place. The patient also had bilateral leg swelling. The patient also had anemia and today, the hemoglobin is 6.7. PAST MEDICAL HISTORY: Reviewed. REVIEW OF SYSTEMS: A 14-point review is negative. CURRENT MEDICATIONS: Reviewed include Eliquis. Dose and rest of medication noted. PHYSICAL EXAMINATION: VITAL SIGNS: Pulse 62, blood pressure 130/80, respirations 17. CHEST: Clear to auscultation. CARDIOVASCULAR: S1 and S2. ABDOMEN: Soft. LEGS: Bilateral leg edema. Left knee, status post surgery. LABORATORY DATA: Reviewed. Hemoglobin 6.7. ASSESSMENT: 1. Left knee infection, status post revision and antibiotic spacer placement. 2. Anemia, multifactorial, symptomatic. 3. History of previous Enterobacter cloacae infection. 4. Hypertension. 5. Bilateral leg swelling. 6. Multiple medical issues. RECOMMENDATIONS: Recommend to continue current medication, continue symptomatic treatment. I would recommend 1 unit of transfusion. The patient also received monitor lytes closely. Continue with the antibiotics. I would also recommend ultrasound of the legs to rule out possible DVT. The prognosis is guarded. I would recommend an evaluation of liver function test also. MMODL / IJN: [id number] / MTDD
--- NOTE | 2023-03-18 14:38 | P.PN ---
Subjective Progress Note Date: 03/18/23 Principal diagnosis: Left knee septic arthritis Patient is a 72-year-old male with a past medical history significant for osteoarthritis in this patient with a history of left knee replacement rheumatoid arthritis hypertension hyperlipidemia sleep apnea patient did have a history of left knee septic arthritis that was treated with I&D and antibiotic bead placement patient subsequently admitted to the hospital and the patient is status post stage I procedure with removal of the infected knee and placement of antibiotic spacer. On today's evaluation that is 03/18/2023, the patient remains to be febrile, the patient pain to the left knee has decreased in intensity along with the swelling to the left lower extremity patient denies having any chest pain shortness of breath or cough no nausea no vomiting no abdominal pain and no diarrhea, no new symptoms Patient did have a white count of 5.65, hemoglobin is 6.7 creatinine 0.47, left knee cultures currently pending Objective - Vital Signs Vital signs: Vital Signs Temp 98.6 F 03/18/23 06:35 Pulse 62 03/18/23 06:35 Resp 17 03/18/23 06:35 BP 130/82 03/18/23 06:35 Pulse Ox 96 03/18/23 08:42 FiO2 Intake & Output 03/17/23 03/18/23 03/18/23 18:59 06:59 18:59 Intake Total 1080 Output Total 1450 1400 Balance -370 -1400 Intake: Oral 1080 Output: Urine 1450 1400 Other: Voiding Method Indwelling Catheter Indwelling Catheter - Exam GENERAL DESCRIPTION: An elderly male lying in bed in no distress RESPIRATORY SYSTEM: Unlabored breathing , decreased breath sounds at bases HEART: S1 S2 regular rate and rhythm , ABDOMEN: Soft , no tenderness EXTREMITIES: Left knee is covered with Prevana postop vac, swelling to the left leg has decreased - Labs CBC & Chem 7: 03/18/23 04:09 03/18/23 04:09 Labs: Abnormal Lab Results - Last 24 Hours (Table) 03/17/23 03/17/23 03/18/23 Range/Units 08:03 08:03 04:09 RBC 2.56 L (4.40-5.60) X 10*6/uL Hgb 7.4 L (13.0-17.0) d/dL Hct 24.8 L (39.6-50.0) % MCV (80.0-97.0) FL MCHC 29.8 L (32.0-37.0) d/dL RDW 18.0 H (11.5-14.5) % Lymphocytes # 0.61 L (0.90-5.00) X 10*3/uL Elliptocytes Sodium 134 L (137-145) mmol/L Carbon Dioxide 31 H (22-30) mmol/L BUN 7.8 L 8 L (9.0-27.0) mg/dL Creatinine 0.5 L 0.47 L (0.6-1.5) mg/dL Glucose 120 H (70-110) mg/dL Calcium 8.4 L 7.9 L (8.7-10.3) mg/dL AST 13 L (14-35) U/L ALT 9 L (10-49) U/L Total Protein 5.7 L (6.2-8.2) d/dL Albumin 3.2 L (3.8-4.9) d/dL Albumin/Globulin Ratio 1.28 L (1.60-3.17) Ratio // Range/Units 04:09 RBC 2.25 L (4.40-5.60) X 10*6/uL Hgb 6.7 H* (13.0-17.0) d/dL Hct 21.9 L (39.6-50.0) % MCV 97.3 H (80.0-97.0) FL MCHC 30.6 L (32.0-37.0) d/dL RDW 18.3 H (11.5-14.5) % Lymphocytes # 0.82 L (0.90-5.00) X 10*3/uL Elliptocytes 2+ A Sodium (137-145) mmol/L Carbon Dioxide (22-30) mmol/L BUN (9.0-27.0) mg/dL Creatinine (0.6-1.5) mg/dL Glucose (70-110) mg/dL Calcium (8.7-10.3) mg/dL AST (14-35) U/L ALT (10-49) U/L Total Protein (6.2-8.2) d/dL Albumin (3.8-4.9) d/dL Albumin/Globulin Ratio (1.60-3.17) Ratio Assessment and Plan (1) Infection of total left knee replacement Current Visit: Yes Status: Acute Priority: Medium Code(s): T84.54XA - INFECT/INFLM REACTION DUE TO INTERNAL LEFT KNEE PROSTH, INIT SNOMED Code(s): 116257477 Plan: 1patient with left knee septic arthritis at this patient failing medical and conservative therapy in this patient who is status post stage I procedure with removal of the infected prosthesis with placement of antibiotic spacer previous culture positive for Enterobacter could be the same pathogen 2Patient did have a placement of the PICC line however cultures are still pending 3-we will continue with cefepime 2 g every 8 hours and vancomycin while waiting for the culture finalized, to determine his discharge antibiotics Dictation was produced using [employer] dictation software. please excuse any grammatical, word or spelling errors. Time with Patient: Less than 30
[2023-03-18] MEDS: SENNOSIDES-DOCUSATE SODIUM 1 EACH TAB PO SCH (22:38)
[2023-03-18] MEDS: rOPINIRole HCL 4 MG TABLET PO SCH (22:38)
[2023-03-19] MEDS: CEFEPIME 2 GM in SODIUM CHLORIDE 0.9% 100 ML IVPB SCH ×3 (00:52→16:38)
[2023-03-19] MEDS ORDERED: VANCOMYCIN TROUGH DUE 1 EACH MISC MISCELLANE ONE (04:00)
[2023-03-19 04:59] LABS: ALT 13 U/L (4-49); AST 20 U/L (17-59); African American GFR (CKD) >90 (>60 ml/min/1.73 sqM); Albumin 2.6 g/dL (3.5-5.0); Albumin/Globulin Ratio 0.9; Alkaline Phosphatase 57 U/L (38-126); Anion Gap 1 mmol/L; Blood Urea Nitrogen 13 mg/dL (9-20); Calcium 8.1 mg/dL (8.4-10.2); Carbon Dioxide 32 mmol/L (22-30); Chloride 101 mmol/L (98-107); Globulin 2.8 g/dL; Glucose 90 mg/dL (74-99); Non-African American GFR(CKD) >90 (>60 ml/min/1.73 sqM); Potassium 3.8 mmol/L (3.5-5.1); Sodium 134 mmol/L (137-145); Total Bilirubin 0.6 mg/dL (0.2-1.3); Total Protein 5.4 g/dL (6.3-8.2)
[2023-03-19] MEDS: VANCOMYCIN 1,750 MG in SODIUM CHLORIDE 0.9% 500 ML 500 ML IVPB SCH (05:47)
[2023-03-19] MEDS: SODIUM CHLORIDE 0.9% 1,000 ML IV SCH ×2 (06:28→21:55)
[2023-03-19] MEDS: LACTATED RINGERS 1,000 ML IV SCH (06:29)
[2023-03-19] MEDS: HYDROcodone/APAP 10-325MG 1 EACH TAB PO PRN ×2 (06:41→16:37)
[2023-03-19] MEDS: clonazePAM 1 MG TAB PO SCH ×2 (09:03→22:01)
[2023-03-19] MEDS: FOLIC ACID 1 MG TAB PO SCH (09:04)
[2023-03-19] MEDS: ATORVASTATIN 40 MG TAB PO SCH (09:04)
[2023-03-19] MEDS: BACLOFEN 10 MG TAB PO SCH ×3 (09:04→22:01)
[2023-03-19] MEDS: APIXABAN 5 MG TAB PO SCH ×2 (09:04→22:01)
[2023-03-19] MEDS: lisinopriL 20 MG TAB PO SCH (09:04)
[2023-03-19] MEDS: CALCIUM CARBONATE 500 MG CHEWABLE PO SCH (09:04)
[2023-03-19] MEDS: allopurinoL 300 MG TAB PO SCH (09:04)
[2023-03-19] MEDS: TAMSULOSIN 0.4 MG CAP.ER.24H PO SCH (09:04)
[2023-03-19] MEDS: DOXAZOSIN 4 MG TAB PO SCH ×2 (09:16→22:02)
[2023-03-19] MEDS: azaTHIOprine 50 MG TAB PO SCH ×3 (09:16→22:02)
[2023-03-19 10:01] LABS: Basophils # (A) 0.05 X 10*3/uL (0.00-0.10); Eosinophils # (A) 0.25 X 10*3/uL (0.04-0.35); Eosinophils % (A) 4.9 %; HCT 25.4 % (39.6-50.0); HGB 7.9 d/dL (13.0-17.0); Lymphocytes # (A) 0.98 X 10*3/uL (0.90-5.00); Lymphocytes % (A) 19.3 %; MCH 29.6 pg (27.0-32.0); MCHC 31.1 d/dL (32.0-37.0); MCV 95.1 FL (80.0-97.0); Mean Platelet Volume 9.4 FL (9.5-12.2); Monocytes # (A) 0.63 X 10*3/uL (0.20-1.00); Monocytes % (A) 12.4 %; NRBC Per 100 WBC 0 X 10*3/uL (0.00-0.01); Neutrophils # (A) 3.15 X 10*3/uL (1.80-7.70); Platelet Count 281 X 10*3/uL (140-440); RBC 2.67 X 10*6/uL (4.40-5.60); RDW 18.5 % (11.5-14.5); WBC 5.08 X 10*3/uL (4.50-10.00)
[2023-03-19] MEDS ORDERED: VANCOMYCIN IV PER PHARMACY 1 EACH MISC MISCELLANE PRN (11:00)
--- NOTE | 2023-03-19 12:43 | P.PN ---
Subjective Progress Note Date: 03/19/23 Principal diagnosis: Left knee septic arthritis, S/P I and D and stage 1 revision with antibiotic spacer Patient is a pleasant 72-year-old male who is status post stage I revision left total knee with removal of implants and placement of antibiotic spacer. This is postoperative day #5 and patient is seen and evaluated at bedside today. Patient continues with pain as expected but is controlled on oral medication now. Patient denies any lightheadedness, fever/chills, numbness, weakness, tingling, abdominal pain, shortness of breath or chest pain. Objective - Vital Signs Vital signs: Vital Signs Temp 98.2 F 03/19/23 07:13 Pulse 54 L 03/19/23 07:13 Resp 17 03/19/23 07:13 BP 104/66 03/19/23 07:13 Pulse Ox 97 03/19/23 11:53 FiO2 Intake & Output 03/18/23 03/19/23 03/19/23 18:59 06:59 18:59 Intake Total 0 310 Output Total 1950 1500 Balance -1950 -1190 Intake: Blood Product 0 310 Rc As-1 Unit 0 310 [id number] Output: Urine 1950 1500 Other: Voiding Method Indwelling Catheter Indwelling Catheter Indwelling Catheter # Bowel Movements 1 1 - Exam Vital signs are stable. Patient is in no acute distress and is alert and oriented 3. Calf is soft and nontender to palpation. Prevena wound VAC is clean, dry, and intact. Patient has full foot and ankle motion without pain or difficulty. Sensation intact. Neurovascular status and circulatory status are intact. - Constitutional General appearance: Present: no acute distress - Labs CBC & Chem 7: 03/19/23 04:30 03/19/23 04:30 Labs: Abnormal Lab Results - Last 24 Hours (Table) 03/18/23 03/19/23 03/19/23 Range/Units 12:41 04:30 04:30 RBC (4.40-5.60) X 10*6/uL Hgb (13.0-17.0) d/dL Hct (39.6-50.0) % MCHC (32.0-37.0) d/dL RDW (11.5-14.5) % MPV (9.5-12.2) FL Sodium 134 L (137-145) mmol/L Carbon Dioxide 32 H (22-30) mmol/L Creatinine 0.47 L (0.66-1.25) mg/dL Calcium 8.1 L (8.4-10.2) mg/dL Total Protein 5.4 L (6.3-8.2) g/dL Albumin 2.6 L (3.5-5.0) g/dL Vancomycin Trough 30.3 H* ug/mL Crossmatch See Detail 03/19/23 Range/Units 04:30 RBC 2.67 L (4.40-5.60) X 10*6/uL Hgb 7.9 L (13.0-17.0) d/dL Hct 25.4 L (39.6-50.0) % MCHC 31.1 L (32.0-37.0) d/dL RDW 18.5 H (11.5-14.5) % MPV 9.4 L (9.5-12.2) FL Sodium (137-145) mmol/L Carbon Dioxide (22-30) mmol/L Creatinine (0.66-1.25) mg/dL Calcium (8.4-10.2) mg/dL Total Protein (6.3-8.2) g/dL Albumin (3.5-5.0) g/dL Vancomycin Trough ug/mL Crossmatch Microbiology - Last 24 Hours (Table) 03/14/23 13:11 Anaerobic Culture - Final Knee - Left 03/14/23 13:12 Anaerobic Culture - Final Knee - Left Assessment and Plan (1) Infection of total left knee replacement Narrative/Plan: PICC line has been placed. Cultures have continued to be negative. He is on IV Vancomycin. He received a unit of PRBCs yesterday. His labs look fine today. He is afebrile. WBC is normal. Continue with routine postoperative care and pain control, leave Prevena wound vac in place x7 days. Continue PT and DVT prophylaxis. He is pending D/C to home vs ECF tommo, 03/20/23 Current Visit: Yes Status: Acute Priority: Medium Code(s): T84.54XA - INFECT/INFLM REACTION DUE TO INTERNAL LEFT KNEE PROSTH, INIT SNOMED Code(s): 452277368 Time with Patient: Less than 30
--- NOTE | 2023-03-19 12:59 | P.PN ---
Subjective Progress Note Date: 03/19/23 Principal diagnosis: Left knee septic arthritis Patient is a 72-year-old male with a past medical history significant for osteoarthritis in this patient with a history of left knee replacement rheumatoid arthritis hypertension hyperlipidemia sleep apnea patient did have a history of left knee septic arthritis that was treated with I&D and antibiotic bead placement patient subsequently admitted to the hospital and the patient is status post stage I procedure with removal of the infected knee and placement of antibiotic spacer. On today's evaluation that is 03/19/2023, the patient continues to be febrile, the patient pain to the left knee is currently controlled, patient denies having any chest pain shortness of breath or cough no nausea no vomiting no abdominal pain and no diarrhea, no new symptoms Patient did have a white count of 5.08, hemoglobin is 7.9, creatinine 0.47, left knee cultures are so far negative Objective - Vital Signs Vital signs: Vital Signs Temp 98.2 F 03/19/23 07:13 Pulse 54 L 03/19/23 07:13 Resp 17 03/19/23 07:13 BP 104/66 03/19/23 07:13 Pulse Ox 97 03/19/23 11:53 FiO2 Intake & Output 03/18/23 03/19/23 03/19/23 18:59 06:59 18:59 Intake Total 0 310 Output Total 1950 1500 Balance -1950 -1190 Intake: Blood Product 0 310 Rc As-1 Unit 0 310 [id number] Output: Urine 1950 1500 Other: Voiding Method Indwelling Catheter Indwelling Catheter Indwelling Catheter # Bowel Movements 1 1 - Exam GENERAL DESCRIPTION: An elderly male lying in bed in no distress RESPIRATORY SYSTEM: Unlabored breathing , decreased breath sounds at bases HEART: S1 S2 regular rate and rhythm , ABDOMEN: Soft , no tenderness EXTREMITIES: Left knee is covered with Prevana postop vac, swelling to the left leg has decreased - Labs CBC & Chem 7: 03/19/23 04:30 03/19/23 04:30 Labs: Abnormal Lab Results - Last 24 Hours (Table) 03/18/23 03/19/23 03/19/23 Range/Units 12:41 04:30 04:30 RBC (4.40-5.60) X 10*6/uL Hgb (13.0-17.0) d/dL Hct (39.6-50.0) % MCHC (32.0-37.0) d/dL RDW (11.5-14.5) % MPV (9.5-12.2) FL Sodium 134 L (137-145) mmol/L Carbon Dioxide 32 H (22-30) mmol/L Creatinine 0.47 L (0.66-1.25) mg/dL Calcium 8.1 L (8.4-10.2) mg/dL Total Protein 5.4 L (6.3-8.2) g/dL Albumin 2.6 L (3.5-5.0) g/dL Vancomycin Trough 30.3 H* ug/mL Crossmatch See Detail 03/19/23 Range/Units 04:30 RBC 2.67 L (4.40-5.60) X 10*6/uL Hgb 7.9 L (13.0-17.0) d/dL Hct 25.4 L (39.6-50.0) % MCHC 31.1 L (32.0-37.0) d/dL RDW 18.5 H (11.5-14.5) % MPV 9.4 L (9.5-12.2) FL Sodium (137-145) mmol/L Carbon Dioxide (22-30) mmol/L Creatinine (0.66-1.25) mg/dL Calcium (8.4-10.2) mg/dL Total Protein (6.3-8.2) g/dL Albumin (3.5-5.0) g/dL Vancomycin Trough ug/mL Crossmatch Microbiology - Last 24 Hours (Table) 03/14/23 13:11 Anaerobic Culture - Final Knee - Left 03/14/23 13:12 Anaerobic Culture - Final Knee - Left Assessment and Plan (1) Infection of total left knee replacement Current Visit: Yes Status: Acute Priority: Medium Code(s): T84.54XA - INFECT/INFLM REACTION DUE TO INTERNAL LEFT KNEE PROSTH, INIT SNOMED Code(s): 196836928 Plan: 1patient with left knee septic arthritis at this patient failing medical and conservative therapy in this patient who is status post stage I procedure with removal of the infected prosthesis with placement of antibiotic spacer previous culture positive for Enterobacter could be the same pathogen 2Patient did have a placement of the PICC line , culture had been negative so far we will base outpatient antibiotic therapy on the basis of previous cultures did grew Enterobacter 3-we will continue with cefepime 2 g every 8 hours however discontinue vanco mycin and monitor clinical course closely Dictation was produced using [employer] dictation software. please excuse any grammatical, word or spelling errors. Time with Patient: Less than 30
--- NOTE | 2023-03-19 14:15 | PN ---
PROGRESS NOTE DATE OF SERVICE: 03/19/2023 SUBJECTIVE: This is a 72-year-old gentleman who was admitted with left knee infection, had anemia after 1 unit of transfusion, hemoglobin has improved to 7.9. No chest pain. No palpitation. OBJECTIVE: VITAL SIGNS: Pulse is 54, blood pressure n, respirations 17. CHEST: Clear to auscultation. ABDOMEN: Soft. LEGS: Bilateral leg swelling present. LABORATORY DATA: Labs are reviewed. DIAGNOSTIC DATA: Ultrasound of the legs showed no evidence of DVT. ASSESSMENT: 1. Left knee infection, status post revision and antibiotic spacer placement. 2. Anemia, multifactorial, symptomatic status post transfusion. 3. History of previous Enterobacter cloacae infection. 4. Hypertension. 5. Bilateral leg swelling with negative deep venous thrombosis. 6. Multiple medical issues. RECOMMENDATIONS: Recommend to continue treatment. Otherwise, repeat labs. Closely follow. Await final ID of the organisms. Continue the antibiotics. Further recommendations to follow. MMODL / IJN: [id number] / MTDD
[2023-03-19] MEDS: SENNOSIDES-DOCUSATE SODIUM 1 EACH TAB PO SCH (22:01)
[2023-03-19] MEDS: rOPINIRole HCL 4 MG TABLET PO SCH (22:02)
[2023-03-20] MEDS: CEFEPIME 2 GM in SODIUM CHLORIDE 0.9% 100 ML IVPB SCH ×3 (00:01→15:26)
[2023-03-20 06:55] LABS: African American GFR (CKD) >90 (>60 ml/min/1.73 sqM); Anion Gap 2 mmol/L; Blood Urea Nitrogen 14 mg/dL (9-20); Carbon Dioxide 34 mmol/L (22-30); Chloride 101 mmol/L (98-107); Glucose 90 mg/dL (74-99); Non-African American GFR(CKD) >90 (>60 ml/min/1.73 sqM); Potassium 3.9 mmol/L (3.5-5.1); Sodium 137 mmol/L (137-145)
[2023-03-20] MEDS: LACTATED RINGERS 1,000 ML IV SCH (08:01)
[2023-03-20] MEDS: lisinopriL 20 MG TAB PO SCH (08:03)
[2023-03-20] MEDS: clonazePAM 1 MG TAB PO SCH (08:03)
[2023-03-20] MEDS: APIXABAN 5 MG TAB PO SCH (08:03)
[2023-03-20] MEDS: FOLIC ACID 1 MG TAB PO SCH (08:03)
[2023-03-20] MEDS: allopurinoL 300 MG TAB PO SCH (08:03)
[2023-03-20] MEDS: ATORVASTATIN 40 MG TAB PO SCH (08:03)
[2023-03-20] MEDS: BACLOFEN 10 MG TAB PO SCH ×2 (08:03→15:26)
[2023-03-20] MEDS: CALCIUM CARBONATE 500 MG CHEWABLE PO SCH (08:04)
[2023-03-20] MEDS: TAMSULOSIN 0.4 MG CAP.ER.24H PO SCH (08:04)
[2023-03-20] MEDS: azaTHIOprine 50 MG TAB PO SCH ×2 (08:05→15:26)
[2023-03-20] MEDS: SODIUM CHLORIDE 0.9% 1,000 ML IV SCH (08:05)
[2023-03-20] MEDS: DOXAZOSIN 4 MG TAB PO SCH (08:05)
[2023-03-20 08:34] VITALS: RESP 18
[2023-03-20 08:47] LABS: Basophils # (A) 0.05 X 10*3/uL (0.00-0.10); Basophils % (A) 0.9 %; Eosinophils # (A) 0.24 X 10*3/uL (0.04-0.35); Eosinophils % (A) 4.5 %; HCT 27.2 % (39.6-50.0); HGB 8.2 d/dL (13.0-17.0); Lymphocytes # (A) 1.07 X 10*3/uL (0.90-5.00); Lymphocytes % (A) 20.2 %; MCH 29.9 pg (27.0-32.0); MCHC 30.1 d/dL (32.0-37.0); MCV 99.3 FL (80.0-97.0); Mean Platelet Volume 10.1 FL (9.5-12.2); Monocytes # (A) 0.64 X 10*3/uL (0.20-1.00); Monocytes % (A) 12.1 %; NRBC Per 100 WBC 0 X 10*3/uL (0.00-0.01); Neutrophils # (A) 3.27 X 10*3/uL (1.80-7.70); Neutrophils % (A) 61.9 %; Platelet Count 314 X 10*3/uL (140-440); RBC 2.74 X 10*6/uL (4.40-5.60); RDW 18.8 % (11.5-14.5); WBC 5.29 X 10*3/uL (4.50-10.00)
--- NOTE | 2023-03-20 08:58 | P.PN ---
Subjective Progress Note Date: 03/20/23 Principal diagnosis: Left knee septic arthritis This is a 72-year-old male who was admitted for left knee infection. He has had a antibiotic spacer placed, and reports swelling in left leg is starting to go down. He does have a history of anemia and required 1 unit of packed red blood cells during admission. Pain is well-controlled. He does have a Wen catheter in place, did have some urinary retention after surgery. Objective - Vital Signs Vital signs: Vital Signs Temp 98.0 F 03/20/23 07:28 Pulse 68 03/20/23 07:28 Resp 18 03/20/23 07:28 BP 107/72 03/20/23 07:28 Pulse Ox 96 03/20/23 07:28 FiO2 Intake & Output 03/19/23 03/20/23 03/20/23 18:59 06:59 18:59 Output Total 575 1450 425 Balance -575 -1450 -425 Output: Urine 575 1450 425 Other: Voiding Method Indwelling Catheter Indwelling Catheter # Bowel Movements 1 - Constitutional General appearance: Present: cooperative, no acute distress - EENT Eyes: Present: PERRLA - Neck Neck: Present: normal ROM. Absent: lymphadenopathy, rigidity - Respiratory Respiratory: bilateral: CTA - Cardiovascular Rhythm: regular Heart sounds: normal: S1, S2 - Peripheral edema leg Peripheral Edema: bilateral: 1+ - Gastrointestinal General gastrointestinal: Present: soft. Absent: tenderness - Integumentary Integumentary: Present: normal, normal turgor - Musculoskeletal Musculoskeletal Comment(s): Left knee immobilizer in place - Psychiatric Psychiatric: Present: A&O x's 3, appropriate affect, intact judgment & insight - Labs CBC & Chem 7: 03/20/23 06:32 03/20/23 06:32 Labs: Abnormal Lab Results - Last 24 Hours (Table) 03/19/23 03/19/23 03/20/23 Range/Units 04:30 04:30 06:32 RBC 2.67 L (4.40-5.60) X 10*6/uL Hgb 7.9 L (13.0-17.0) d/dL Hct 25.4 L (39.6-50.0) % MCV (80.0-97.0) FL MCHC 31.1 L (32.0-37.0) d/dL RDW 18.5 H (11.5-14.5) % MPV 9.4 L (9.5-12.2) FL Carbon Dioxide 34 H (22-30) mmol/L Creatinine 0.50 L (0.66-1.25) mg/dL Calcium 8.0 L (8.4-10.2) mg/dL Vancomycin Trough 30.3 H* ug/mL 03/20/23 Range/Units 06:32 RBC 2.74 L (4.40-5.60) X 10*6/uL Hgb 8.2 L (13.0-17.0) d/dL Hct 27.2 L (39.6-50.0) % MCV 99.3 H (80.0-97.0) FL MCHC 30.1 L (32.0-37.0) d/dL RDW 18.8 H (11.5-14.5) % MPV (9.5-12.2) FL Carbon Dioxide (22-30) mmol/L Creatinine (0.66-1.25) mg/dL Calcium (8.4-10.2) mg/dL Vancomycin Trough ug/mL Assessment and Plan (1) Infection of total left knee replacement Current Visit: Yes Status: Acute Priority: Medium Code(s): T84.54XA - INFECT/INFLM REACTION DUE TO INTERNAL LEFT KNEE PROSTH, INIT SNOMED Code(s): 020143587 (2) Postoperative infection Current Visit: No Status: Acute Code(s): T81.40XA - INFECTION FOLLOWING A PROCEDURE, UNSPECIFIED, INIT SNOMED Code(s): 28626209 (3) Anemia Current Visit: Yes Status: Acute Code(s): D64.9 - ANEMIA, UNSPECIFIED SNOMED Code(s): 116909677 (4) Hyperlipidemia Current Visit: No Status: Acute Code(s): E78.5 - HYPERLIPIDEMIA, UNSPECIFIED SNOMED Code(s): 43398225 (5) Hypertension Current Visit: No Status: Acute Code(s): I10 - ESSENTIAL (PRIMARY) HYPERTENSION SNOMED Code(s): 28269036 Plan: Patient continues to be stable from a medical standpoint. Hemoglobin is stable. Check labs in the morning. Patient seen and evaluated by nurse practitioner, physician in agreement with plan
[2023-03-20] MEDS: HYDROcodone/APAP 10-325MG 1 EACH TAB PO PRN ×2 (09:36→16:15)
--- NOTE | 2023-03-20 11:23 | P.DS ---
Providers Date of admission: 03/14/23 09:40 Attending physician: Shen Del Rosario Consults: 03/14/23 11:07 Consult Physician Routine Consulting Provider: Lorenzo Thomas Consult Reason/Comments: medical management Do you want consulting provider notified?: Yes 03/14/23 11:09 Consult Physician Routine Consulting Provider: Mahad Cornelius Consult Reason/Comments: infection left total knee, s/p stage 1 revsion Do you want consulting provider notified?: Yes Primary care physician: Lorenzo Thomas - Discharge Diagnosis(es) (1) Infection of total left knee replacement Current Visit: Yes Status: Acute Priority: Medium (2) History of total left knee replacement Current Visit: No Status: Acute Hospital Course: This is a 72-year-old male with known history of left total knee infection. The patient underwent multiple incision and drainage procedures for the left knee, but the infection has persisted. After discussion and consideration patient elects to proceed with stage I revision left total knee arthroplasty with remova l of implants and placement of an antibiotic spacer. The patient is seen preoperatively by Dr. Del Rosario and medically cleared for surgery by their primary care physician. Patient is admitted to [facility] on 03/14/2023 for stage I revision left total knee arthroplasty with removal of implants and placement of an antibiotic spacer. The procedure is performed without complication or sequelae. The patient is doing well postoperatively. The patient did receive 1 unit of blood on 03/18/2023 and hemoglobin improved to 7.9. Hemoglobin is 8.2 on day of discharge. Labs and vital signs are stable on day of discharge. Infectious disease evaluated the patient and is managing outpatient antibiotics via PICC line. Patient also had issues with urinary retention postoperatively, but is now able to void. On day of discharge incision is clean, dry and intact. There is minimal erythema. There is no drainage noted at this time. There is mild-moderate soft tissue swelling to the knee. Patient has full foot and ankle motion without difficulty or pain. Calf is soft and nontender to palpation. Neurovascular status to the left lower extremity is intact. Patient is discharged home in g ood condition. Please see med rec for accurate list of home medications. Plan - Discharge Summary Discharge Rx Participant: Yes New Discharge Prescriptions: New Sennosides [Senokot] 2 tab PO DAILY PRN #60 tablet PRN Reason: Constipation HYDROcodone/APAP 10-325MG [[place] 10-325] 1 tab PO Q4-6H PRN #30 tab PRN Reason: Pain No Action Simvastatin [Zocor] 80 mg PO DAILY azaTHIOprine [Imuran] 50 mg PO TID Folic Acid 1 mg PO DAILY allopurinoL [Zyloprim] 300 mg PO DAILY Doxazosin Mesylate [Cardura] 4 mg PO BID Calcium Carbonate [Calcium] 600 mg PO DAILY #0 Morphine Pain Pump 1 dose INTRATHECA CONTINUOUS Baclofen [Lioresal] 20 mg PO TID ramipriL [Altace] 10 mg PO DAILY rOPINIRole HCL [Requip] 4 mg PO HS Gabapentin [Neurontin] 300 mg PO TID #9 cap Ciprofloxacin HCl [Cipro] 500 mg PO BID Apixaban [Eliquis] 5 mg PO BID 30 Days #60 tab clonazePAM [KlonoPIN] 4 mg PO BID Ferrous Sulfate [Iron (65 MG Elemental)] 325 mg PO DAILY tab carvediloL [Coreg] 3.125 mg PO BID HYDROcodone/APAP 10-325MG [[place] 10-325] 1 tab PO Q6HR PRN PRN Reason: Pain Nf-Methotrexate Inj. 1 injection INJ Q7D Discharge Medication List Doxazosin Mesylate [Cardura] 4 mg PO BID 10/14/15 [History] Folic Acid 1 mg PO DAILY 10/14/15 [History] Simvastatin [Zocor] 80 mg PO DAILY 10/14/15 [History] allopurinoL [Zyloprim] 300 mg PO DAILY 10/14/15 [History] azaTHIOprine [Imuran] 50 mg PO TID 10/14/15 [History] Calcium Carbonate [Calcium] 600 mg PO DAILY #0 12/05/18 [History] Morphine Pain Pump 1 dose INTRATHECA CONTINUOUS 12/05/19 [History] Baclofen [Lioresal] 20 mg PO TID 02/11/20 [History] ramipriL [Altace] 10 mg PO DAILY 02/11/20 [History] rOPINIRole HCL [Requip] 4 mg PO HS 07/14/21 [History] Ferrous Sulfate [Iron (65 MG Elemental)] 325 mg PO DAILY tab 07/21/21 [Rx] Gabapentin [Neurontin] 300 mg PO TID #9 cap 07/21/21 [Rx] Ciprofloxacin HCl [Cipro] 500 mg PO BID 11/14/21 [History] carvediloL [Coreg] 3.125 mg PO BID 11/14/21 [History] Apixaban [Eliquis] 5 mg PO BID 30 Days #60 tab 11/17/21 [Rx] HYDROcodone/APAP 10-325MG [[place] 10-325] 1 tab PO Q6HR PRN 03/10/23 [History] Nf-Methotrexate Inj. 1 injection INJ Q7D 03/10/23 [History] clonazePAM [KlonoPIN] 4 mg PO BID 03/10/23 [History] Sennosides [Senokot] 2 tab PO DAILY PRN #60 tablet 03/14/23 [Rx] HYDROcodone/APAP 10-325MG [[place] 10-325] 1 tab PO Q4-6H PRN #30 tab 03/20/23 [Rx] Follow up Appointment(s)/Referral(s): [facility], [NON-STAFF] - As Needed Shen Del Rosario DO [Doctor of Osteopathic Medicine] - 10 Days Activity/Diet/Wound Care/Special Instructions: Weightbearing as tolerated with a walker. Leave optifoam dressing intact for 7 days. May shower with dressing intact. Recommend use of compression stockings daily until follow up to help prevent swelling and blood clots. May remove at night before sleeping. Please resume Eliquis. Please follow up with [facility] in one week for wound vac removal and call with any questions or concerns, . Discharge Disposition: HOME WITH HOME HEALTH SERVICES
[2023-03-20 15:07] VITALS: BP 96/60; PULSE 67; TEMP 97.8
--- NOTE | 2023-03-22 14:58 | CDI ---
Documentation Clarification Form Date: 03/22/2023 09:41:00 AM From: Alva Dial RN, CCDS Admit Date: 03/14/2023 09:40:00 AM Patient Name: Pal Rose Visit Number: [id number] Discharge Date: 03/20/2023 04:40:00 PM ATTENTION: The Clinical Documentation Specialists (CDI) and [facility] Coding Staff appreciate your assistance in clarifying documentation. Please respond to the clarification below the line at the bottom and electronically sign. The CDI & [facility] Coding staff will review the response and follow-up if needed. Please note: Queries are made part of the Legal Health Record. If you have any questions, please contact the author of this message via ITS. Dr. Shen Del Rosario Urinary retention postoperatively is documented in the discharge summary and patient had Stage I revision left total knee with removal of implants and placement of antibiotic spacer on 03/14/2023. Additional clarification is requested regarding the relationship, if any, that exists between the diagnosis and the procedure. Patients Admitting Diagnosis: Chronic infection left total knee. Post-Operative Diagnosis: Chronic infection left total knee. Procedure performed: Stage I revision left total knee with removal of implants and placement of antibiotic spacer History/Risk Factors: Hyperlipidemia, Hypertension, Rheumatoid arthritis, Paroxysmal atrial fibrillation Clinical Indicators: 72-year-old gentleman has had a prior left total knee arthroplasty. He had a secondary procedure are to stabilize his patella but acquired an infection after the procedure. Present for surgical repair. 03/16 Nursing notes: unable to void bladder scanned for over 900. Patient had been straight catheter twice and per hospital protocol Wen catheter placed due to retention and failure to void. 03/20 Labs WBC 5.29, HGB 8.2 03/20 Discharge summary: Patient also had issues with urinary retention postoperatively but is now able to void. ID: progress note patient did have urinary retention requiring Wen catheter placement. Treatment: .9NS IV@70 ML/HR Monitor output Wen Catheter insertion (dc 03/20) What relationship, if any, exists between the diagnosis of Urinary retention and the procedure? [ ] Urinary retention is a complication of surgical procedure. [ ] Urinary retention is an expected outcome of the surgical procedure. [ ] Urinary retention is related to patients co-morbid condition(s) of [insert co-morbid dxs] & not a complication of the procedure. [ ] Other please specify ____ [ x ] Unable to determine. (Template Last Revised: October 2020) MTDD
--- NOTE | 2023-03-23 09:19 | CDI ---
Documentation Clarification Form Date: 03/22/2023 09:41:00 AM From: Alva Dial RN,CCDS Admit Date: 03/14/2023 09:40:00 AM Patient Name: Pal Rose Visit Number: [id number] Discharge Date: 03/20/2023 04:40:00 PM ATTENTION: The Clinical Documentation Specialists (CDI) and [facility] Coding Staff appreciate your assistance in clarifying documentation. Please respond to the clarification below the line at the bottom and electronically sign. The CDI & [facility] Coding staff will review the response and follow-up if needed. Please note: Queries are made part of the Legal Health Record. If you have any questions, please contact the author of this message via ITS. Dr. Lorenzo Thomas Urinary retention postoperatively is documented in the discharge summary and patient had Stage I revision left total knee with removal of implants and placement of antibiotic spacer on 03/14/2023. Additional clarification is requested regarding the relationship, if any, that exists between the diagnosis and the procedure. Patients Admitting Diagnosis: Chronic infection left total knee. Post-Operative Diagnosis: Chronic infection left total knee. Procedure performed: Stage I revision left total knee with removal of implants and placement of antibiotic spacer History/Risk Factors: Hyperlipidemia, Hypertension, Rheumatoid arthritis, Paroxysmal atrial fibrillation Clinical Indicators: 72-year-old gentleman has had a prior left total knee arthroplasty. He had a secondary procedure are to stabilize his patella but acquired an infection after the procedure. Present for surgical repair. 03/16 Nursing notes: unable to void bladder scanned for over 900. Patient had been straight catheter twice and per hospital protocol Wen catheter placed due to retention and failure to void. 03/20 Labs WBC 5.29, HGB 8.2 03/20 Discharge summary: Patient also had issues with urinary retention postoperatively but is now able to void. ID: progress note patient did have urinary retention requiring Wen catheter placement. Treatment: .9NS IV@70 ML/HR Monitor output Wen Catheter insertion (dc 03/20) What relationship, if any, exists between the diagnosis of Urinary retention and the procedure? [ ] Urinary retention is a complication of surgical procedure. [ ] Urinary retention is an expected outcome of the surgical procedure. [ x ] Urinary retention is related to patients co-morbid condition(s) of [insert co-morbid dxs] & not a complication of the procedure. [ ] Other please specify ____ [ ] Unable to determine. (Template Last Revised: October 2020) MTDD
--- NOTE | 2023-03-27 22:05 | P.PN ---
Subjective Progress Note Date: 03/20/23 Principal diagnosis: Left knee septic arthritis Patient is a 72-year-old male with a past medical history significant for osteoarthritis in this patient with a history of left knee replacement rheumatoid arthritis hypertension hyperlipidemia sleep apnea patient did have a history of left knee septic arthritis that was treated with I&D and antibiotic bead placement patient subsequently admitted to the hospital and the patient is status post stage I procedure with removal of the infected knee and placement of antibiotic spacer. On today's evaluation that is 03/20/2023, the patient denies any fever or any chills, the patient pain to the left knee has decreased in intensity, patient denies having any chest pain shortness of breath or cough no nausea no vomiting no abdominal pain and no diarrhea, no new symptoms Patient did have a white count of 5.29, creatinine 0.50, left knee cultures are so far negative Objective - Vital Signs Vital signs: Vital Signs Temp 98.0 F 03/20/23 07:28 Pulse 68 03/20/23 07:28 Resp 18 03/20/23 07:28 BP 107/72 03/20/23 07:28 Pulse Ox 96 03/20/23 07:28 FiO2 Intake & Output 03/19/23 03/20/23 03/20/23 18:59 06:59 18:59 Output Total 575 1450 1200 Balance -575 -1450 -1200 Output: Urine 575 1450 1200 Uretheral (Wen) 425 Other: Voiding Method Indwelling Catheter Indwelling Catheter # Bowel Movements 1 - Exam GENERAL DESCRIPTION: An elderly male lying in bed in no distress RESPIRATORY SYSTEM: Unlabored breathing , decreased breath sounds at bases HEART: S1 S2 regular rate and rhythm , ABDOMEN: Soft , no tenderness EXTREMITIES: Left knee is covered with Prevana postop vac, swelling to the left leg has decreased - Labs CBC & Chem 7: 03/20/23 06:32 03/20/23 06:32 Labs: Abnormal Lab Results - Last 24 Hours (Table) 03/19/23 03/20/23 03/20/23 Range/Units 04:30 06:32 06:32 RBC 2.74 L (4.40-5.60) X 10*6/uL Hgb 8.2 L (13.0-17.0) d/dL Hct 27.2 L (39.6-50.0) % MCV 99.3 H (80.0-97.0) FL MCHC 30.1 L (32.0-37.0) d/dL RDW 18.8 H (11.5-14.5) % Carbon Dioxide 34 H (22-30) mmol/L Creatinine 0.50 L (0.66-1.25) mg/dL Calcium 8.0 L (8.4-10.2) mg/dL Vancomycin Trough 30.3 H* ug/mL Assessment and Plan (1) Infection of total left knee replacement Status: Acute Priority: Medium Code(s): T84.54XA - INFECT/INFLM REACTION DUE TO INTERNAL LEFT KNEE PROSTH, INIT SNOMED Code(s): 763694702 Plan: 1patient with left knee septic arthritis at this patient failing medical and conservative therapy in this patient who is status post stage I procedure with removal of the infected prosthesis with placement of antibiotic spacer previous culture positive for Enterobacter could be the same pathogen 2Patient did have a placement of the PICC line , culture had been negative so far we will base outpatient antibiotic therapy on the basis of previous cultures did grew Enterobacter 3-plan is to continue with cefepime 2 g every 8 hours 6 week on discharge with weekly monitoring of CRP and sed rate and close outpatient follow-up Dictation was produced using [employer] dictation software. please excuse any grammatical, word or spelling errors. Time with Patient: Less than 30
== END 2023-03-20 16:40 | disposition home health service (06) | DRG 467 ==
LOC: 2ORMAIN 09:40 → 4SSUR 14:54
PROVIDERS: ADMIT Orthopaedic Surgery; ATTEND Orthopaedic Surgery
DX: T84.54XA Infection and inflammatory reaction due to internal left knee prosthesis, initial encounter (principal); D62 Acute posthemorrhagic anemia; I42.0 Dilated cardiomyopathy; I50.22 Chronic systolic (congestive) heart failure; K51.90 Ulcerative colitis, unspecified, without complications; I95.89 Other hypotension; I11.0 Hypertensive heart disease with heart failure; I48.0 Paroxysmal atrial fibrillation; E86.0 Dehydration; E66.9 Obesity, unspecified; G40.909 Epilepsy, unspecified, not intractable, without status epilepticus; M06.9 Rheumatoid arthritis, unspecified; R33.9 Retention of urine, unspecified; M54.12 Radiculopathy, cervical region; G47.30 Sleep apnea, unspecified; E78.5 Hyperlipidemia, unspecified; M19.90 Unspecified osteoarthritis, unspecified site; M54.9 Dorsalgia, unspecified; R25.1 Tremor, unspecified; Z68.34 Body mass index [BMI] 34.0-34.9, adult; Z79.01 Long term (current) use of anticoagulants; Z79.2 Long term (current) use of antibiotics; Z79.891 Long term (current) use of opiate analgesic; Z79.631 Long term (current) use of antimetabolite agent; Z79.60 Long term (current) use of unspecified immunomodulators and immunosuppressants; Z79.899 Other long term (current) drug therapy; Z87.891 Personal history of nicotine dependence; Z87.442 Personal history of urinary calculi; Z97.8 Presence of other specified devices; Y83.1 Surgical operation with implant of artificial internal device as the cause of abnormal reaction of the patient, or of later complication, without mention of misadventure at the time of the procedure
CPT/HCPCS: 36573; 80048; 80053; 80202; 82565; 85025; 85652; 86140; 86850; 86900; 86901; 86920; 87070; 87075; 87205; 93970; 94760

== ENCOUNTER 2023-06-30 09:40 | Day surgery (SDC) | payer MEDICARE ==
[2023-06-30 10:21] LABS: Anisocytosis Slight; Basophils % (A) 1 %; Eosinophils # (A) 0.1 k/uL (0-0.7); Eosinophils % (A) 3 %; HCT 35.4 % (39.0-53.0); HGB 11.7 gm/dL (13.0-17.5); Lymphocytes # (A) 0.9 k/uL (1.0-4.8); Lymphocytes % (A) 18 %; MCH 31.3 pg (25.0-35.0); MCHC 33.1 g/dL (31.0-37.0); MCV 94.7 fL (80.0-100.0); Mean Platelet Volume 8.3; Monocytes # (A) 0.4 k/uL (0-1.0); Monocytes % (A) 8 %; Neutrophils # (A) 3.3 k/uL (1.3-7.7); Neutrophils % (A) 69 %; Platelet Count 264 k/uL (150-450); RBC 3.74 m/uL (4.30-5.90); RDW 18.1 % (11.5-15.5); WBC 4.7 k/uL (3.8-10.6)
[2023-06-30] MEDS ORDERED: LIDOCAINE 1% INJ 10MG/ML (5 ML VIAL-PF) SQ ONE (10:34)
[2023-06-30 10:41] LABS: African American GFR (CKD) >90 (>60 ml/min/1.73 sqM); Anion Gap 11 mmol/L; Blood Urea Nitrogen 19 mg/dL (9-20); Carbon Dioxide 27 mmol/L (22-30); Chloride 99 mmol/L (98-107); Non-African American GFR(CKD) >90 (>60 ml/min/1.73 sqM); Potassium 4.3 mmol/L (3.5-5.1); Sodium 137 mmol/L (137-145)
[2023-06-30 10:51] VITALS: BP 122/61; PULSE 62; RESP 16; TEMP 98.3
--- NOTE | 2023-06-30 11:29 | IR ---
PICC LINE PLACEMENT: HISTORY: Infection requiring long-term antibiotic therapy PROCEDURE: Ultrasound and fluoroscopic guidance of PICC line placement. COMPLICATIONS: None ANESTHESIA: 1. 1% Lidocaine locally. FINDINGS/TECHNIQUE: The procedure was explained to the patient. The risks, complications, benefits and alternatives were discussed and any questions were answered. Informed consent was obtained. The patient was placed supine on the fluoroscopic table and prepped and draped in the usual sterile fash ion. Utilizing a 21 gauge needle and sonographic and fluoroscopic guidance, access in the left basi lic vein was achieved and there is placement of a 0.018 guidewire. The vein is patent. A 4-F sheath was placed over the guidewire. The guidewire and dilator were removed and a 4-F. PICC line was plac ed through the sheath with the tip at the level of the SVC. The sheath was removed, the catheter was flushed and sutured into position. The patient was stable throughout the procedure and remained sta ble upon discharge from the Department of Radiology. The vein puncture was patent under ultrasound. A johnson scale image was obtained to document patency of the vein punctured. All elements of the maximal barrier technique were utilized. FLUOROSCOPY TIME: DAP 1.860Gy cm2 IMPRESSION: Successful PICC line placement under ultrasound and fluoroscopic guidance.
== END 2023-06-30 11:08 | disposition home or self-care (01) ==
LOC: CATHCVL 09:40
PROVIDERS: ATTEND Radiology Diagnostic Radiology
DX: Z45.2 Encounter for adjustment and management of vascular access device (principal)
CPT/HCPCS: 36573; 80051; 82565; 84520; 85025; C1751; C1769; J2001

== ENCOUNTER → 2023-10-16 | Outpatient (CLI) | payer MEDICARE ==
[2023-10-16 14:49] LABS: INR 1.1 (<1.2); Partial Thromboplastin Time 27.5 sec (22.0-30.0)
[2023-10-16 18:23] LABS: HCT 37.7 % (39.6-50.0); HGB 12.2 g/dL (13.0-17.0); MCH 31.7 pg (27.0-32.0); MCHC 32.4 g/dL (32.0-37.0); MCV 97.9 FL (80.0-97.0); Mean Platelet Volume 10.9 FL (9.5-12.2); NRBC Per 100 WBC 0 X 10*3/uL (0.00-0.01); Platelet Count 236 X 10*3/uL (140-440); RBC 3.85 X 10*6/uL (4.40-5.60)
[2023-10-16 18:42] LABS: ALT 13 U/L (10-49); AST 18 U/L (14-35); Albumin 4.4 g/dL (3.8-4.9); Albumin/Globulin Ratio 1.76 Ratio (1.60-3.17); Alkaline Phosphatase 67 U/L (41-126); Blood Urea Nitrogen 17.2 mg/dL (9.0-27.0); Calcium 9.3 mg/dL (8.7-10.3); Carbon Dioxide 26.8 mmol/L (21.6-31.8); Chloride 102 mmol/L (96-109); Globulin 2.5 g/dL (1.6-3.3); Glucose 106 mg/dL (70-110); Potassium 4.5 mmol/L (3.5-5.5); Sodium 140 mmol/L (135-145); Total Bilirubin 0.6 mg/dL (0.3-1.2); Total Protein 6.9 g/dL (6.2-8.2)
== END | disposition home or self-care (01) ==
LOC: LABPAT 14:05
PROVIDERS: ATTEND Orthopaedic Surgery
DX: Z01.812 Encounter for preprocedural laboratory examination (principal); M17.12 Unilateral primary osteoarthritis, left knee; Z22.322 Carrier or suspected carrier of Methicillin resistant Staphylococcus aureus
CPT/HCPCS: 36415; 80053; 85027; 85610; 85730; 87070

== ENCOUNTER 2023-10-31 07:00 | Inpatient (IN) | payer MEDICARE ==
[~2023-10-31 07:00] MED LIST changes: -ACETAMINOPHEN TAB 500 MG TAB PO PRN; -DEXAMETHASONE SOD PHOSPHATE 4 MG/ML 1 ML VIAL IV ONE; -LIDOCAINE 1% (10MG/ML) FOR IV START INTRADERMA PRN; -MELOXICAM 7.5 MG TAB PO PRN; -METOCLOPRAMIDE 5 MG/ML 2 ML VIAL IVP PRN; -MIDAZOLAM 2 MG/2 ML VIAL IV PRN; -ONDANSETRON 4 MG/2 ML VIAL IVP ONE; -ceFAZolin 3 GM in SODIUM CHLORIDE 0.9% 100 ML IVPB PRN; -fentaNYL (PF) 50 MCG/ML 2 ML AMP IVP PRN
[2023-10-31] MEDS: MELOXICAM 7.5 MG TAB PO PRN (08:37)
[2023-10-31] MEDS: ACETAMINOPHEN TAB 500 MG TAB PO PRN (08:37)
[2023-10-31] MEDS: LACTATED RINGERS 1,000 ML IV SCH (08:50)
[2023-10-31] MEDS: ONDANSETRON 4 MG/2 ML VIAL IVP ONE (09:04)
[2023-10-31] MEDS: DEXAMETHASONE SOD PHOSPHATE 4 MG/ML 1 ML VIAL IV ONE (09:04)
[2023-10-31] MEDS: MIDAZOLAM 2 MG/2 ML VIAL IVP ONE (09:07)
[2023-10-31] MEDS: fentaNYL (PF) 50 MCG/ML 2 ML AMP IVP ONE (09:07)
[2023-10-31] MEDS ORDERED: MAGNESIUM HYDROXIDE 2,400 MG/30 ML CUP PO PRN (10:03)
[2023-10-31] MEDS ORDERED: HYDROmorphone 0.5 MG/0.5 ML SYRINGE IVP PRN ×2 (10:03)
[2023-10-31] MEDS ORDERED: bisacodyL 10 MG SUPP RECTAL PRN (10:03)
[2023-10-31] MEDS ORDERED: ONDANSETRON 4 MG/2 ML VIAL IVP PRN (10:03)
[2023-10-31] MEDS ORDERED: NA PHOS,M-B/NA PHOS,DI-BA 133 ML ENEMA RECTAL PRN (10:03)
[2023-10-31] MEDS ORDERED: NALOXONE 0.4 MG/ML 1 ML VIAL IV PRN (10:03)
[2023-10-31] MEDS ORDERED: HYDROcodone/APAP 7.5-325MG 1 EACH TAB PO PRN ×3 (10:04→10:10)
[2023-10-31] MEDS ORDERED: HYDROcodone/APAP 10-325MG 1 EACH TAB PO PRN (10:09)
[2023-10-31] MEDS ORDERED: MIDAZOLAM 2 MG/2 ML VIAL ONE (10:17)
[2023-10-31] MEDS ORDERED: HYDROmorphone (PF) 1 MG/ML ONE (10:17)
[2023-10-31] MEDS ORDERED: DEXAMETHASONE SOD PHOSPHATE 4 MG/ML 1 ML VIAL ONE (10:17)
[2023-10-31] MEDS ORDERED: SODIUM CHLORIDE 0.9% (PF) 10 ML VIAL ONE (10:17)
[2023-10-31] MEDS ORDERED: fentaNYL (PF) 50 MCG/ML 2 ML AMP ONE (10:17)
[2023-10-31] MEDS ORDERED: ePHEDrine 50 MG/ML 1 ML VIAL ONE (10:17)
[2023-10-31] MEDS ORDERED: ROPIVACAINE 5 MG/ML 30 ML VIAL ONE (10:17)
[2023-10-31] MEDS ORDERED: SUCCINYLCHOLINE CHLORIDE 200 MG/10 ML VIAL IV ONE (10:17)
[2023-10-31] MEDS ORDERED: TRANEXAMIC 1,000 MG/100ML-NACL PREMIX BAG ONE (10:17)
[2023-10-31] MEDS ORDERED: LIDOCAINE 1% INJ 10MG/ML (20 ML MDV) ONE (10:17)
[2023-10-31] MEDS ORDERED: PROPOFOL 10 MG/ML 20 ML VIAL IV ONE (10:17)
[2023-10-31] MEDS: ceFAZolin 1,000 MG in SODIUM CHLORIDE 0.9% 1,000 ML IRRIGATION ONE (10:22)
[2023-10-31] MEDS: TRANEXAMIC 1,000 MG/100ML-NACL 1,000 MG in SALINE 1 100ML.BAG IVPB PRN (10:22)
--- NOTE | 2023-10-31 10:23 | P.ANPRN ---
Procedure Note - Anesthesia - Nerve Block Performed Left Adductor Canal Infusion Time Out Performed: Yes Date of Procedure: 10/31/23 Procedure Start Time: :06 Procedure Stop Time: :15 Location of Patient: PreOp Indication: Acute Post-Operative Pain, Requested by Surgeon Sedation Type: Sedate with meaningful contact maintained Preparation: Sterile Prep, Sterile Dressing Position: Supine Catheter: Indwelling Needle Types: Pajunk Needle Gauge: 18 Ultrasound used to visualize needle placement: Yes Ultrasound used to observe medication spread: Yes Injectate: 0.5% Ropivacaine (see comment for volume) (Ropivacaine 0.5% 15 ml + 15 ml NS) Blood Aspirated: No Pain Paresthesia on Injection Noted: No Resistance on Injection: Normal
--- NOTE | 2023-10-31 10:24 | P.ANPRN ---
Procedure Note - Anesthesia - Nerve Block Performed Left iPack Single Time Out Performed: Yes Date of Procedure: 10/31/23 Procedure Start Time: :16 Procedure Stop Time: :21 Location of Patient: PreOp Indication: Acute Post-Operative Pain, Requested by Surgeon Sedation Type: Sedate with meaningful contact maintained Preparation: Sterile Prep Position: Right Lateral Needle Types: Pajunk Needle Gauge: 21 Ultrasound used to visualize needle placement: Yes Ultrasound used to observe medication spread: Yes Injectate: 0.5% Ropivacaine (see comment for volume) (Ropivacaine 0.5% 15 ml + 10 ml NS + 4 mg Dexamethasone) Blood Aspirated: No Pain Paresthesia on Injection Noted: No Resistance on Injection: Normal Image Stored and Saved: Yes Events: Uneventful and Well Tolerated
--- NOTE | 2023-10-31 12:16 | P.OP ---
Date of Procedure: 10/31/23 Preoperative Diagnosis: Infected left total knee arthroplasty, status post stage I revision with placement of antibiotic spacer Postoperative Diagnosis: Infected left total knee arthroplasty, status post stage I revision with placement of antibiotic spacer Procedure(s) Performed: Stage II revision left total knee arthroplasty with removal of antibiotic spacer and placement of revision left total knee Implants: [employer] Legion Oxinium constrained femoral component size 7, left [employer] Legion press-fit stem, straight 22 mm x 160 mm [employer] legion revision tibial baseplate size 6, left [employer] Legion press-fit stem, straight 15 mm x 160 mm [employer] Sallie II constrained articular insert size 5-6, 18 mm All components were cemented using Simplex P bone cement with Tobramycin x 2 The articulation is Oxinium on polyethylene. Anesthesia: GETA Surgeon: Shen Del Rosario Confectionery Maker #1: Isidra Hodges Estimated Blood Loss (ml): 100 Pathology: other (Cultures 2) Condition: stable Disposition: PACU Indications for Procedure: This is a 73-year-old gentleman that had a left total knee arthroplasty performed on May 142018. He began to experience subluxation of his patella and a lateral release was performed on 06/22/2021. He then became infected and had an irrigation debridement on 07/17/2021, and again on 11/04/2021. He then had a stage I revision on 03/14/2023 followed by multiple rounds of intravenous and oral antibiotics. He has been followed closely and has recently had an aspiration of his left knee while off of antibiotics on September 152023. Cultures demonstrated no growth with that aspiration. He is also had recent lab work which showed a sedimentation rate of 12, CRP of less than 0.3, and a white blood cell count of 4.76. After consultation with infectious disease doctor, we have decided to proceed with stage II revision left total knee arthroplasty with removal of antibiotic spacer and placement of revision total knee. Patient is were the pocket potential complications including recurrent infection and possible amputation of his left leg if the infection cannot be cleared. Informed consent was obtained. Operative Findings: The operative findings are consistent with a stage I revision total knee arthroplasty with an antibiotic spacer. There is no evidence of any gross purulence within the knee. Description of Procedure: Patient was seen in the preoperative area consent was reviewed and operative site was marked with a skin marker. An adductor canal pain catheter was placed by anesthesia in the preoperative area. Patient was then brought to the operating room and given preoperative antibiotics intravenously. A general anesthetic was administered by the anesthesia department. A tourniquet was placed on the upper thigh and the lower extremity was prepped and draped in usual sterile fashion. A gram of transexamic acid was given. A universal timeout was then performed which confirmed the patient's name, surgical site, ALLERGIES, and consent. The lower extremity was then exsanguinated and tourniquet was inflated to 250 mmHg. A standard and anterior midline approach to the knee was performed. The skin and subcutaneous tissue was dissected down to the patellar tendon, with the prior scar being excised. A medial parapatellar arthrotomy was then performed. A moderate amount of clear fluid was encountered, and this was cultured 2. The knee was then extended. The extensor mechanism was very tight and a quadriceps snip was performed. The patella was everted, and the knee was again flexed. The antibiotic spacer components were then removed without difficulty. There was minimal bone loss encountered. An extensive debridement of scar and devitalized tissue was performed. This was then sharply with a knife and also with a Ronguer and Bovie. Attention was redirected to the femur. Sequential reaming of the femoral canal was performed until good cortical fit. The distal cutting guide was then placed over the reamer the distal femur cut was performed. Next the 4-in-1 cutting block was placed over the reamer and the appropriate cuts were performed. The cutting block and reamer were then removed and the femoral trial was placed. The bone was then removed for the box. Femoral trial was then removed. Attention was then redirected to the tibia. Sequential reaming of the tibial canal was performed until good cortical fit. The intramedullary proximal tibial cutting guide was then placed over the reamer, the proximal tibia was cut. The tibia was sized. The proximal tibia was then prepared. Trials were then placed with the appropriate-sized constrained liner. The knee was able to fully extend and flex to 115 and was stable throughout all range of motion. Trials were then removed. The cut surfaces of bone were then irrigated with pulsatile lavage. The knee was also irrigated with Irrisept solution. The components were then opened, the cement was mixed, and the components were then cemented in place. The cement was allowed to harden with the knee in full extension. After the cemented hardened. The tourniquet was released, and hemostasis was obtained. A second gram of transexamic acid was given. The knee was again irrigated. The knee was again taken through range of motion and found to be stable throughout all range of motion of 0-115. The soft tissues were coagulated using an aqua Mantis device. The quadriceps snip was repaired with #5 Ethibond suture. The fascia was then closed with #2 strata fix suture. The subcutaneous tissue was closed with 3-0 Vicryl and 3-0 strata fix. Exofin glue was used for the skin and placed with the knee in flexion. The patient was placed in a sterile silver d ressing. Patient was then transferred to recovery room in stable condition. The drug safety assistant SANTO Dexter was required due the complexity surgery and the need for a skilled surgical instrument technician. She assisted in positioning, draping, retraction, and closure of the wound.
[2023-10-31] MEDS: MEPERIDINE 50 MG/ML SYRINGE IVP ONE (13:08)
[2023-10-31] MEDS: ROPIVACAINE 1,100 MG, SODIUM CHLORIDE 0.9% 500 ML 330 ML, EMPTY PAIN BALL 1 EACH MISCELLANE PRN (13:31)
--- NOTE | 2023-10-31 13:57 | XR ---
EXAMINATION TYPE: XR knee limited LT DATE OF EXAM: 10/31/2023 1:34 PM CLINICAL INDICATION:Male, 73 years old with history of Evaluation for Postop abnormality and alignmen t; [facility] COMPARISON: None. TECHNIQUE: XR knee limited LT; examined in Frontal, lateral and oblique projections. FINDINGS: Post knee revision changes with the femoral component slightly off midline within the femur . Subcutaneous gas with recent surgeries. No evidence of fracture. IMPRESSION: Post left knee arthroplasty changes. No evidence for hardware failure. Subcutaneous lucencies compati ble with recent surgery.
[2023-10-31] MEDS ORDERED: VANCOMYCIN IV PER PHARMACY 1 EACH MISC MISCELLANE PRN (16:19)
[2023-10-31] MEDS: SODIUM CHLORIDE 0.9% 1,000 ML IV SCH (17:15)
[2023-10-31] MEDS: VANCOMYCIN 1,750 MG in SODIUM CHLORIDE 0.9% 500 ML 500 ML IVPB ONE (17:16)
[2023-10-31 17:58] LABS: African American GFR (CKD) >90 (>60 ml/min/1.73 sqM); Non-African American GFR(CKD) >90 (>60 ml/min/1.73 sqM)
[2023-10-31] MEDS: SENNOSIDES-DOCUSATE SODIUM 1 EACH TAB PO SCH (20:13)
[2023-10-31] MEDS: HYDROmorphone 0.5 MG/0.5 ML SYRINGE IVP PRN (20:17)
[2023-10-31] MEDS: lisinopriL 10 MG TAB PO SCH (21:42)
[2023-10-31] MEDS: carvediloL 3.125 MG TAB PO SCH (21:42)
--- NOTE | 2023-10-31 22:42 | P.CONS ---
History of Present Illness - Reason for Consult Consult date: 10/31/23 S/p stage II revision of left knee Requesting physician: Shen Del Rosario - Chief Complaint Left knee pain x weeks - History of Present Illness Patient is a 73-year-old male with a past medical history significant for hypertension hyperlipidemia rheumatoid arthritis ulcerative colitis in this patient who did have a history of left knee septic arthritis recurrent episode in this patient who is s/p stage I procedure February 2023 and the patient did have antibiotic spacer placement initial cultures were negative however repeat cultures were positive for MRSA and the patient has completed more than 6 to 8- week course of IV antibiotic therapy patient did have a aspiration of the knee 2 weeks after completion of antibiotic therapy and those were negative and rece ntly he did have normal extremity markers patient was electively admitted to the hospital and the patient is status post stage II revision of left total knee arthroplasty with removal of the antibiotic spacer and placement of revision left total knee operative report did not mention any purulent drainage or signs suspicious for infection patient has received cefazolin perioperatively infectious disease was consulted for further management of antibiotic therapy keeping in mind his complicated history. on today's evaluation that is 10/31/2023 patient denies having any fever or any chills patient is breathing comfortably denies any URI symptoms no chest pain no shortness of breath no cough no nausea vomiting no abdominal pain no diarrhea has been complaining of pain to the left knee area for surgery however he did not have significant pain prior to surgery and the pain is currently controlled mostly dull aching to sharp 4-5/10 and no radiation denies having any nausea vomiting or no diarrhea Review of Systems Positive point and negatives has been mentioned in the HPI, complete review of systems was performed and all other systems are negative Past Medical History Past Medical History: Cancer, Hyperlipidemia, Hypertension, Rheumatoid Arthritis (RA), Sleep Apnea/CPAP/BIPAP Additional Past Medical History / Comment(s): ulcerative colitis, kidney stones has one currently, 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 C PAP MACHINE, skin cancers, knee cap displaced History of Any Multi-Drug Resistant Organisms: MRSA Year Discovered:: 06/14/23 MDRO Source:: Synovial Fluid Left Knee Past Surgical History: Hernia Repair, Joint Replacement Additional Past Surgical History / Comment(s): implanted pain stimulator, PAIN PUMP lft knee replacement components removed and anbx spacer inplace, upper arm surgery,. STEROID INJECTION KNEES 5-6 SURGERIES ON LFT KNEE AT THIS TIME. COLO NOSCOPY Past Anesthesia/Blood Transfusion Reactions: No Reported Reaction Smoking Status: Former smoker - Past Family History Mother Family Medical History: No Reported History Additional Family Medical History / Comment(s): of alcoholism Father Family Medical History: CVA/TIA, Myocardial Infarction ([place]) Medications and Allergies Home Medications Medication Instructions Recorded Confirmed Type Doxazosin Mesylate [Cardura] 4 mg PO BID 10/14/15 10/31/23 History Folic Acid 1 mg PO DAILY 10/14/15 10/31/23 History Simvastatin [Zocor] 80 mg PO DAILY 10/14/15 10/31/23 History allopurinoL [Zyloprim] 300 mg PO DAILY 10/14/15 10/31/23 History azaTHIOprine [Imuran] 50 mg PO TID 10/14/15 10/31/23 History Calcium Carbonate [Calcium] 600 mg PO DAILY #0 12/05/18 10/31/23 History Morphine Pain Pump 1 dose INTRATHECA CONTINUOUS 12/05/19 10/31/23 History rOPINIRole HCL [Requip] 4 mg PO HS 07/14/21 10/31/23 History Ferrous Sulfate [Iron (65 MG 325 mg PO DAILY tab 07/21/21 10/31/23 Rx Elemental)] Gabapentin [Neurontin] 300 mg PO TID #9 cap 07/21/21 10/31/23 Rx Apixaban [Eliquis] 5 mg PO BID 30 Days #60 tab 11/17/21 10/31/23 Rx Nf-Methotrexate Inj. 1 injection INJ MO 03/10/23 10/31/23 History clonazePAM [KlonoPIN] 4 mg PO BID 03/10/23 10/31/23 History Furosemide [Lasix] 20 mg PO DAILY 30 Days #30 tab 11/04/23 Rx Metoprolol Tartrate 25 mg PO BID 30 Days #60 tab 11/04/23 Rx Sennosides-Docusate Sodium 2 tab PO DAILY #60 tablet 11/04/23 Rx [Senokot-S] Allergies Allergy/AdvReac Type Severity Reaction Status Date / Time No Known Allergies Allergy Verified 10/31/23 08:29 Physical Exam Vitals: Vital Signs Temp Pulse Resp BP Pulse Ox 10/31/23 09:30 66 14 97/56 98 10/31/23 09:20 62 14 95/56 96 10/31/23 09:06 64 14 110/62 99 10/31/23 08:25 98.9 F 78 16 119/63 96 Intake and Output 10/30/23 10/31/23 10/31/23 22:59 06:59 14:59 Intake Total 151 Balance 151 Intake: IV 151 Other: Weight 117.6 kg GENERAL DESCRIPTION: Elderly male lying in bed, no distress. No tachypnea or accessory muscle of respiration use. HEENT: Shows Pallor , no scleral icterus. Oral mucous membrane is dry. NECK: Trachea central, no thyromegaly. LUNGS: Unlabored breathing. Clear to auscultation anteriorly. No wheeze or crackle. HEART: S1, S2, regular rate and rhythm. No loud murmur ABDOMEN: Soft, no tenderness , EXTREMITIES: Left knee is covered in postop dressing SKIN: No rash, no masses palpable. NEUROLOGICAL: The patient is awake, alert, oriented x3, mood and affect normal. Results CBC & Chem 7: 11/03/23 04:54 11/03/23 04:54 Assessment and Plan (1) Septic arthritis of knee, left Status: Acute Code(s): M00.9 - PYOGENIC ARTHRITIS, UNSPECIFIED SNOMED Code(s): 998845486 Plan: 1patient with a complicated history of left knee septic arthritis in this patient electively admitted to the hospital for stage II procedure with removal of the antibiotic spacer and placement of the artificial knee operative report did not mention any evidence of purulence patient not running any fever and rec ently did have normal inflammatory markers 2-keeping in mind his last culture positive for MRSA we will cover with vancomycin perioperatively and watch his kidney function closely and may benefit from course of oral suppressant by therapy on discharge on the basis of last sensitivity Multiple question concern answered We will follow on clinical condition and cultures to further adjust medication i f needed Thank you for this consultation we will follow the patient along with you Dictation was produced using [employer] software. please excuse any grammatical, word or spelling errors. Time with Patient: Greater than 30
[2023-10-31] MEDS: DOXAZOSIN 4 MG TAB PO SCH (23:00)
[2023-11-01] MEDS: HYDROcodone/APAP 7.5-325MG 1 EACH TAB PO PRN (02:20)
[2023-11-01] MEDS: VANCOMYCIN 1,750 MG in SODIUM CHLORIDE 0.9% 500 ML 500 ML IVPB SCH (05:33)
[2023-11-01 06:18] LABS: African American GFR (CKD) >90 (>60 ml/min/1.73 sqM); Non-African American GFR(CKD) >90 (>60 ml/min/1.73 sqM)
--- NOTE | 2023-11-01 07:02 | P.PN ---
Progress Note - Text Progress Note Date: 11/01/23 Postoperative day # 1 status post total knee arthroplasty, and adductor canal catheter placed for postoperative analgesia, currently at ropivacaine 0.2% 8 mL per hour and continuous infusion, visual analogue scale is 4/10, patient using oral pain medication for breakthrough pain. Assessment and plan= Acute postoperative pain, adductor canal catheter for pain control, pain is well controlled we'll continue the same management.
--- NOTE | 2023-11-01 08:21 | P.CONS ---
History of Present Illness - Reason for Consult Consult date: 11/01/23 Medical management - Chief Complaint Left knee TKA revision - History of Present Illness This 73-year-old white male with long history of septic left knee. Here for revision. Underlying history of diabetes rheumatoid arthritis. Remote history of electrocution injury. The patient is seen postop day 1 for medical management. The patient's pain is tolerable with Dilaudid. No voiding difficul ties. Insomnia is stated. Review of Systems Constitutional: Denies chills, Denies fever Eyes: denies blurred vision, denies pain Ears, nose, mouth and throat: Denies headache, Denies sore throat Cardiovascular: Denies chest pain, Denies shortness of breath Respiratory: Denies cough Gastrointestinal: Denies abdominal pain, Denies diarrhea, Denies nausea, Denies vomiting Genitourinary: Reports as per HPI Past Medical History Past Medical History: Cancer, Hyperlipidemia, Hypertension, Rheumatoid Arthritis (RA), Sleep Apnea/CPAP/BIPAP Additional Past Medical History / Comment(s): ulcerative colitis, kidney stones has one currently, 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 C PAP MACHINE, skin cancers, knee cap displaced History of Any Multi-Drug Resistant Organisms: MRSA Year Discovered:: 06/14/23 MDRO Source:: Synovial Fluid Left Knee Past Surgical History: Hernia Repair, Joint Replacement Additional Past Surgical History / Comment(s): implanted pain stimulator, PAIN PUMP lft knee replacement components removed and anbx spacer inplace, upper arm surgery,. STEROID INJECTION KNEES 5-6 SURGERIES ON LFT KNEE AT THIS TIME. COLONOSCOPY Past Anesthesia/Blood Transfusion Reactions: No Reported Reaction Smoking Status: Former smoker - Past Family History Mother Family Medical History: No Reported History Additional Family Medical History / Comment(s): of alcoholism Father Family Medical History: CVA/TIA, Myocardial Infarction ([place]) Medications and Allergies Home Medications Medication Instructions Recorded Confirmed Type Doxazosin Mesylate [Cardura] 4 mg PO BID 10/14/15 10/31/23 History Folic Acid 1 mg PO DAILY 10/14/15 10/31/23 History Simvastatin [Zocor] 80 mg PO DAILY 10/14/15 10/31/23 History allopurinoL [Zyloprim] 300 mg PO DAILY 10/14/15 10/31/23 History azaTHIOprine [Imuran] 50 mg PO TID 10/14/15 10/31/23 History Calcium Carbonate [Calcium] 600 mg PO DAILY #0 12/05/18 10/31/23 History Morphine Pain Pump 1 dose INTRATHECA CONTINUOUS 12/05/19 10/31/23 History ramipriL [Altace] 10 mg PO DAILY 02/11/20 10/31/23 History rOPINIRole HCL [Requip] 4 mg PO HS 07/14/21 10/31/23 History Ferrous Sulfate [Iron (65 MG 325 mg PO DAILY tab 07/21/21 10/31/23 Rx Elemental)] Gabapentin [Neurontin] 300 mg PO TID #9 cap 07/21/21 10/31/23 Rx Ciprofloxacin HCl [Cipro] 500 mg PO BID 11/14/21 10/31/23 History carvediloL [Coreg] 3.125 mg PO BID 11/14/21 10/31/23 History Apixaban [Eliquis] 5 mg PO BID 30 Days #60 tab 11/17/21 10/31/23 Rx Nf-Methotrexate Inj. 1 injection INJ MO 03/10/23 10/31/23 History clonazePAM [KlonoPIN] 4 mg PO BID 03/10/23 10/31/23 History HYDROcodone/APAP 10-325MG [Wasta 1 tab PO Q4-6H PRN #30 tab 03/20/23 10/31/23 Rx 10-325] Allergies Allergy/AdvReac Type Severity Reaction Status Date / Time No Known Allergies Allergy Verified 10/31/23 08:29 Physical Exam Vitals: Vital Signs Temp Pulse Pulse Resp BP BP Pulse Ox 11/01/23 07:29 98.1 F 54 L 17 96/53 91 L 11/01/23 01:08 98.7 F 59 L 15 95/60 91 L 10/31/23 21:41 120 H 106/71 10/31/23 19:33 98.4 F 109 H 16 95/59 98 10/31/23 16:34 16 10/31/23 15:30 121 H 16 112/75 95 10/31/23 15:00 111 H 16 119/71 96 10/31/23 14:42 110 H 16 120/85 96 10/31/23 14:27 114 H 16 119/74 96 10/31/23 14:12 116 H 16 126/82 98 10/31/23 13:57 55 L 16 115/68 94 L 10/31/23 13:42 63 16 120/75 94 L 10/31/23 13:27 61 16 120/75 96 10/31/23 13:12 16 136/84 97 10/31/23 12:57 98.7 F 62 16 126/76 99 10/31/23 09:30 66 14 97/56 98 10/31/23 09:20 62 14 95/56 96 10/31/23 09:06 64 14 110/62 99 10/31/23 08:25 98.9 F 78 16 119/63 96 Intake and Output 10/31/23 11/01/23 11/01/23 22:59 06:59 14:59 Intake Total 1000 Output Total 800 Balance 200 Intake: IV 1000 Output: Urine 800 - Constitutional General appearance: cooperative, no disheveled, no acute distress - Neck Neck: no lymphadenopathy - Respiratory Respiratory: bilateral: CTA - Cardiovascular Rhythm: regular Heart sounds: normal: S1, S2 Abnormal Heart Sounds: no S3 Gallop - Gastrointestinal General gastrointestinal: soft, no tenderness - Integumentary Integumentary: normal - Psychiatric Psychiatric: A&O x's 3, appropriate affect Results CBC & Chem 7: 11/01/23 05:46 Labs: Abnormal Lab Results - Last 24 Hours (Table) 10/31/23 11/01/23 Range/Units 17:09 05:46 Creatinine 0.57 L 0.56 L (0.66-1.25) mg/dL Assessment and Plan (1) History of total knee arthroplasty Current Visit: Yes Status: Acute Code(s): Z96.659 - PRESENCE OF UNSPECIFIED ARTIFICIAL KNEE JOINT SNOMED Code(s): 1479362605675 (2) Cervical radiculopathy Current Visit: No Status: Acute Code(s): M54.12 - RADICULOPATHY, CERVICAL REGION SNOMED Code(s): 17563251 (3) Osteoarthritis of left knee Current Visit: No Status: Acute Code(s): M17.12 - UNILATERAL PRIMARY OSTEOARTHRITIS, LEFT KNEE SNOMED Code(s): 915284932199545 (4) Rheumatoid arthritis Current Visit: No Status: Acute Code(s): M06.9 - RHEUMATOID ARTHRITIS, UNSPECIFIED SNOMED Code(s): 38171161 Plan: Pain control. Anticipate physical therapy today. Check CBC and CMP in AM. Reconcile home medications. Will continue to follow. Prognosis is guarded.
[2023-11-01 08:39] LABS: Basophils # (A) 0.01 X 10*3/uL (0.00-0.10); Basophils % (A) 0.1 %; Eosinophils # (A) 0.01 X 10*3/uL (0.04-0.35); Eosinophils % (A) 0.1 %; HCT 26.9 % (39.6-50.0); HGB 8.8 g/dL (13.0-17.0); Lymphocytes # (A) 0.29 X 10*3/uL (0.90-5.00); Lymphocytes % (A) 3.6 %; MCHC 32.7 g/dL (32.0-37.0); MCV 97.8 FL (80.0-97.0); Monocytes # (A) 0.66 X 10*3/uL (0.20-1.00); Monocytes % (A) 8.1 %; NRBC Per 100 WBC 0 X 10*3/uL (0.00-0.01); Neutrophils # (A) 7.13 X 10*3/uL (1.80-7.70); Neutrophils % (A) 87.6 %; Platelet Count 153 X 10*3/uL (140-440); RBC 2.75 X 10*6/uL (4.40-5.60); RDW 16.1 % (11.5-14.5); WBC 8.14 X 10*3/uL (4.50-10.00)
[2023-11-01] MEDS: METOPROLOL TARTRATE 25 MG TAB PO SCH (08:56)
[2023-11-01] MEDS: APIXABAN 5 MG TAB PO SCH (08:56)
--- NOTE | 2023-11-01 09:50 | P.PN ---
Subjective Progress Note Date: 11/01/23 This is a 73-year-old male who is status post stage II revision left total knee arthroplasty with removal of antibiotic spacer and placement of revision left total knee. This is postoperative day #1 and patient is seen and evaluated at bedside with Dr. Shen Del Rosario. Patient states that his pain is well- controlled and he was able to walk around his hospital room a little bit today. Patient denies any complaints today. Objective - Vital Signs Vital signs: Vital Signs Temp 98.1 F 11/01/23 07:29 Pulse 54 L 11/01/23 07:29 Resp 17 11/01/23 07:29 BP 96/53 11/01/23 07:29 Pulse Ox 91 L 11/01/23 07:29 FiO2 Intake & Output 10/31/23 11/01/23 11/01/23 18:59 06:59 18:59 Intake Total 2951 Output Total 900 Balance 2050 Weight 117.6 kg Intake: IV 2951 Output: Urine 800 Estimated Blood Loss 100 - Exam Vital signs are stable. Patient is in no acute distress and is alert and oriented 3. Calf is soft and nontender to palpation. Dressing is clean, dry, and intact. Patient has full foot and ankle motion without pain or difficulty. Sensation intact. Neurovascular status and circulatory status are intact. - Labs CBC & Chem 7: 11/01/23 05:46 11/01/23 05:46 Labs: Abnormal Lab Results - Last 24 Hours (Table) 10/31/23 11/01/23 11/01/23 Range/Units 17:09 05:46 05:46 RBC 2.75 L (4.40-5.60) X 10*6/uL Hgb 8.8 L (13.0-17.0) g/dL Hct 26.9 L (39.6-50.0) % MCV 97.8 H (80.0-97.0) FL RDW 16.1 H (11.5-14.5) % Lymphocytes # 0.29 L (0.90-5.00) X 10*3/uL Eosinophils # 0.01 L (0.04-0.35) X 10*3/uL Creatinine 0.57 L 0.56 L (0.66-1.25) mg/dL Microbiology - Last 24 Hours (Table) 10/31/23 10:50 Gram Stain - Preliminary Knee - Left Wound Culture - Preliminary 10/31/23 10:51 Gram Stain - Preliminary Knee - Left Wound Culture - Preliminary Assessment and Plan Assessment: Stage II revision left total knee arthroplasty with removal of antibiotic spacer and placement of revision left total knee. (1) History of removal of joint prosthesis of left knee due to infection Current Visit: Yes Status: Acute Code(s): Z98.890 - OTHER SPECIFIED POSTPROCEDURAL STATES; Z86.19 - PERSONAL HISTORY OF OTHER INFECTIOUS AND PARASITIC DISEASES SNOMED Code(s): 837650512 (2) S/P revision of total knee Current Visit: Yes Status: Acute Code(s): Z96.659 - PRESENCE OF UNSPECIFIED ARTIFICIAL KNEE JOINT SNOMED Code(s): 4007097120310 (3) History of total knee arthroplasty Current Visit: Yes Status: Acute Code(s): Z96.659 - PRESENCE OF UNSPECIFIED ARTIFICIAL KNEE JOINT SNOMED Code(s): 8183318152538 Plan: #1 Continue with routine postoperative care and pain control, leave dressing in place for 7 days. #2 Patient has resumed Eliquis. #3 Physical therapy today. #4 Appreciate input from internal medicine and infectious disease. #5 Anticipate discharge home with home care or to [facility], [facility] in the next 24-48 hours.
--- NOTE | 2023-11-01 10:19 | P.CRDCN ---
History of Present Illness History of present illness: HISTORY OF PRESENT ILLNESS: This is a 73-year-old male with a past medical history significant for paroxysmal atrial fibrillation, hypertension, hyperlipidemia, rheumatoid arthritis, ulcerative colitis, and former nicotine dependence. Patient follows in the office with Dr. Calloway. We have been asked to see the patient in consultation for atrial fibrillation. Patient examined at the bedside. Patient is status post revision of left total knee arthroplasty secondary to infected left total knee. Patient went into A-fib with RVR afterwards with a heart rate in the 120s. He was started back on his home medications and subsequently converted to sinus mechanism. He is maintaining sinus mechanism this morning. Patient's blood pressures are running on the lower side this morning with a systolic in the 90s. Patient denies any chest pain or pressure. He denies any shortness of breath. DIAGNOSTICS: - EKG reveals atrial fibrillation with mild RVR - Laboratory data: WBC 8.15. Hemoglobin 8.8. Platelet count 153. - Current home cardiac medications include Eliquis 5 mg twice a day, simvastatin 80 mg daily, carvedilol 3.125 mg twice a day, ramipril 10 mg daily. - Most recent echocardiogram obtained in October 2021 revealed ejection fraction 40 to 45% REVIEW OF SYSTEMS: At the time of my exam: CONSTITUTIONAL: Denies fever or chills. HEENT: Denies blurred vision, vision changes, or eye pain. Denies hemoptysis CARDIOVASCULAR: Denies chest pain. Denies orthopnea. Denies PND. Denies palpitations RESPIRATORY: Denies shortness of breath. GASTROINTESTINAL: Denies abdominal pain. Denies nausea or vomiting. HEMATOLOGIC: Denies bleeding disorders. GENITOURINARY: Denies any blood in urine. SKIN: Denies pruitis. Denies rash. PHYSICAL EXAM: VITAL SIGNS: Reviewed. GENERAL: Well-developed in no acute distress. HEENT: Head is normocephalic. Pupils are equal, round. Sclerae anicteric. Mucous membranes of the mouth are moist. Neck supple. No JVD or thyromegaly LUNGS: Respirations even and unlabored. Lungs essentially clear to auscultation bilaterally. HEART: Regular rate and rhythm. S1 and S2 heard. ABDOMEN: Soft. Nondistended. Nontender. EXTREMITIES: Normal range of motion. No clubbing or cyanosis. Peripheral pulses intact. Bilateral lower extremity edema NEUROLOGIC: Awake and alert. Oriented x 3. ASSESSMENT: Infected left total knee arthroplasty, status post revision of left TKA Paroxysmal atrial fibrillation, currently maintaining sinus mechanism Hypertension, blood pressures currently on the lower side History of cardiomyopathy, 40 to 45%, etiology unclear Hyperlipidemia Rheumatoid arthritis History of ulcerative colitis Former nicotine dependence PLAN: Patient has been resumed on Eliquis Discontinue lisinopril secondary to soft blood pressures Discontinue carvedilol Begin metoprolol 25 mg twice a day Continue telemetry monitoring Continue to monitor blood pressure Further recommendations pending patient course Nurse practitioner note has been reviewed by physician. Signing provider agrees with the documented findings, assessment, and plan of care documented by MEDICAL CODING TECHNICIAN as a scribe. 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 C PAP MACHINE, skin cancers, knee cap displaced History of Any Multi-Drug Resistant Organisms: MRSA Date of last positivie culture/infection: 06/14/23 MDRO Source:: Synovial Fluid Left Knee Past Surgical History: Hernia Repair, Joint Replacement Additional Past Surgical History / Comment(s): implanted pain stimulator, PAIN PUMP lft knee replacement components removed and anbx spacer inplace, upper arm surgery,. STEROID INJECTION KNEES 5-6 SURGERIES ON LFT KNEE AT THIS TIME. COLONOSCOPY Past Anesthesia/Blood Transfusion Reactions: No Reported Reaction Smoking Status: Former smoker - Past Family History Mother Family Medical History: No Reported History Additional Family Medical History / Comment(s): of alcoholism Father Family Medical History: CVA/TIA, Myocardial Infarction (PR) Medications and Allergies Home Medications Medication Instructions Recorded Confirmed Type Doxazosin Mesylate [Cardura] 4 mg PO BID 10/14/15 10/31/23 History Folic Acid 1 mg PO DAILY 10/14/15 10/31/23 History Simvastatin [Zocor] 80 mg PO DAILY 10/14/15 10/31/23 History allopurinoL [Zyloprim] 300 mg PO DAILY 10/14/15 10/31/23 History azaTHIOprine [Imuran] 50 mg PO TID 10/14/15 10/31/23 History Calcium Carbonate [Calcium] 600 mg PO DAILY #0 12/05/18 10/31/23 History Morphine Pain Pump 1 dose INTRATHECA CONTINUOUS 12/05/19 10/31/23 History ramipriL [Altace] 10 mg PO DAILY 02/11/20 10/31/23 History rOPINIRole HCL [Requip] 4 mg PO HS 07/14/21 10/31/23 History Ferrous Sulfate [Iron (65 MG 325 mg PO DAILY tab 07/21/21 10/31/23 Rx Elemental)] Gabapentin [Neurontin] 300 mg PO TID #9 cap 07/21/21 10/31/23 Rx Ciprofloxacin HCl [Cipro] 500 mg PO BID 11/14/21 10/31/23 History carvediloL [Coreg] 3.125 mg PO BID 11/14/21 10/31/23 History Apixaban [Eliquis] 5 mg PO BID 30 Days #60 tab 11/17/21 10/31/23 Rx Nf-Methotrexate Inj. 1 injection INJ MO 03/10/23 10/31/23 History clonazePAM [KlonoPIN] 4 mg PO BID 03/10/23 10/31/23 History HYDROcodone/APAP 10-325MG [Andale 1 tab PO Q4-6H PRN #30 tab 03/20/23 10/31/23 Rx 10-325] Allergies Allergy/AdvReac Type Severity Reaction Status Date / Time No Known Allergies Allergy Verified 10/31/23 08:29 Physical Exam Vitals: Vital Signs Temp Pulse Resp BP Pulse Ox 11/01/23 07:29 98.1 F 54 L 17 96/53 91 L 11/01/23 01:08 98.7 F 59 L 15 95/60 91 L 10/31/23 21:41 120 H 106/71 10/31/23 19:33 98.4 F 109 H 16 95/59 98 10/31/23 16:34 16 10/31/23 15:30 121 H 16 112/75 95 10/31/23 15:00 111 H 16 119/71 96 10/31/23 14:42 110 H 16 120/85 96 10/31/23 14:27 114 H 16 119/74 96 10/31/23 14:12 116 H 16 126/82 98 10/31/23 13:57 55 L 16 115/68 94 L 10/31/23 13:42 63 16 120/75 94 L 10/31/23 13:27 61 16 120/75 96 10/31/23 13:12 16 136/84 97 10/31/23 12:57 98.7 F 62 16 126/76 99 Intake and Output 10/31/23 11/01/23 11/01/23 22:59 06:59 14:59 Intake Total 1000 Output Total 800 Balance 200 Intake: IV 1000 Output: Urine 800 Results 11/01/23 05:46 11/01/23 05:46 CBC 11/01/23 Range/Units 05:46 WBC 8.14 (4.50-10.00) X 10*3/uL RBC 2.75 L (4.40-5.60) X 10*6/uL Hgb 8.8 L (13.0-17.0) g/dL Hct 26.9 L (39.6-50.0) % Plt Count 153 (140-440) X 10*3/uL Comprehensive Metabolic Panel 10/31/23 11/01/23 Range/Units 17:09 05:46 Creatinine 0.57 L 0.56 L (0.66-1.25) mg/dL Current Medications Generic Name Dose Route Start Last Admin Trade Name Freq PRN Reason Stop Dose Admin Hydrocodone Bitart/Acetaminophen 1 each 10/31/23 10:10 Hydrocodone/Apap 7.5-325mg 1 Each Tab PO Q6H PRN Pain Scale 1 to 5 Hydrocodone Bitart/Acetaminophen 2 each 10/31/23 10:10 11/01/23 09:17 Hydrocodone/Apap 7.5-325mg 1 Each Tab PO 2 each Q6H PRN Administration Pain Scale 6 to 10 Apixaban 5 mg 11/01/23 09:00 11/01/23 08:56 Apixaban 5 Mg Tab PO 5 mg BID RADAMES Administration Protocol Bisacodyl 10 mg 10/31/23 10:03 Bisacodyl 10 Mg Supp RECTAL DAILY PRN Constipation Ropivacaine 1,100 mg/ Sodium 0 mg 10/31/23 10:24 10/31/23 13:31 Chloride 330 ml/ Bandage/ MISCELLANE 1,100 mg Support Products 1 each Q2H PRN Administration Breakthrough Pain Doxazosin Mesylate 4 mg 10/31/23 21:45 11/01/23 08:56 Doxazosin 4 Mg Tab PO 4 mg BID RADAMES Administration Hydromorphone HCl 0.125 mg 10/31/23 10:03 Hydromorphone 0.5 Mg/0.5 Ml Syringe IVP Q3HR PRN Pain Scale 1 to 3 Hydromorphone HCl 0.5 mg 10/31/23 10:03 11/01/23 07:47 Hydromorphone 0.5 Mg/0.5 Ml Syringe IVP 0.5 mg Q3HR PRN Administration Pain Scale 7 to 10 Hydromorphone HCl 0.25 mg 10/31/23 10:03 Hydromorphone 0.5 Mg/0.5 Ml Syringe IVP Q3HR PRN Pain Scale 4 to 6 Lactated Ringer's 1,000 mls @ 20 mls/hr 10/31/23 06:08 11/01/23 03:43 Lactated Ringers IV Not Given .Q24H RADAMES Sodium Chloride 1,000 mls @ 70 mls/hr 10/31/23 10:15 11/01/23 01:05 Saline 0.9% IV Not Given .[id number] RADAMES Vancomycin HCl 1,750 mg/ 500 mls @ 167 mls/hr 11/01/23 05:00 11/01/23 05:33 Sodium Chloride IVPB 167 mls/hr Q12H RADAMES Administration Magnesium Hydroxide 2,400 mg 10/31/23 10:03 Magnesium Hydroxide 2,400 Mg/30 Ml Cup PO DAILY PRN Constipation Metoprolol Tartrate 25 mg 11/01/23 09:00 11/01/23 08:56 Metoprolol Tartrate 25 Mg Tab PO 25 mg BID RADAMES Administration Naloxone HCl 0.2 mg 10/31/23 10:03 Naloxone 0.4 Mg/Ml 1 Ml Vial IV Q2M PRN Opioid Reversal Ondansetron HCl 4 mg 10/31/23 10:03 Ondansetron 4 Mg/2 Ml Vial IVP Q8HR PRN Nausea And Vomiting Senna/Docusate Sodium 2 each 10/31/23 21:00 10/31/23 20:13 Sennosides-Docusate Sodium 1 Each Tab PO 2 each HS RADAMES Administration Sodium Biphosphate/Sodium Phosphate 133 ml 10/31/23 10:03 Na Phos,M-B/Na Phos,Di-Ba 133 Ml Enema RECTAL DAILY PRN Constipation Zolpidem Tartrate 5 mg 11/01/23 08:33 Zolpidem 5 Mg Tab PO HS PRN Insomnia Intake and Output 10/31/23 11/01/23 11/01/23 22:59 06:59 14:59 Intake Total 1000 Output Total 800 Balance 200 Intake: IV 1000 Output: Urine 800 11/01/23 05:46 11/01/23 05:46
--- NOTE | 2023-11-02 08:44 | P.PN ---
Subjective Progress Note Date: 11/02/23 Principal diagnosis: Left knee TKA revision This is a 73-year-old male with a history of septic left knee who is here for revision. On Monday patient underwent a left total knee revision with Dr. Del Rosario. Patient reports he did not sleep well last night. Pain is somewhat controlled. He was able to ambulate in the room yesterday, and is planning to possibly ambulate in the hallway today. Objective - Vital Signs Vital signs: Vital Signs Temp 98.3 F 11/02/23 07:14 Pulse 51 L 11/02/23 07:14 Resp 16 11/02/23 07:14 BP 116/76 11/02/23 07:14 Pulse Ox 93 L 11/02/23 07:14 FiO2 - Constitutional General appearance: Present: cooperative, no acute distress - EENT Eyes: Present: PERRLA - Neck Neck: Present: normal ROM. Absent: lymphadenopathy, rigidity - Respiratory Respiratory: bilateral: CTA - Cardiovascular Rhythm: regular Heart sounds: normal: S1, S2 - Gastrointestinal General gastrointestinal: Present: soft. Absent: tenderness - Integumentary Integumentary: Present: normal, normal turgor - Psychiatric Psychiatric: Present: A&O x's 3, appropriate affect, intact judgment & insight - Labs CBC & Chem 7: 11/01/23 05:46 11/01/23 05:46 Labs: Abnormal Lab Results - Last 24 Hours (Table) 11/01/23 Range/Units 05:46 RBC 2.75 L (4.40-5.60) X 10*6/uL Hgb 8.8 L (13.0-17.0) g/dL Hct 26.9 L (39.6-50.0) % MCV 97.8 H (80.0-97.0) FL RDW 16.1 H (11.5-14.5) % Lymphocytes # 0.29 L (0.90-5.00) X 10*3/uL Eosinophils # 0.01 L (0.04-0.35) X 10*3/uL Microbiology - Last 24 Hours (Table) 10/31/23 10:50 Gram Stain - Preliminary Knee - Left Wound Culture - Preliminary 10/31/23 10:51 Gram Stain - Preliminary Knee - Left Wound Culture - Preliminary Assessment and Plan (1) History of total knee arthroplasty Current Visit: Yes Status: Acute Code(s): Z96.659 - PRESENCE OF UNSPECIFIED ARTIFICIAL KNEE JOINT SNOMED Code(s): 3334068489252 (2) Cervical radiculopathy Current Visit: No Status: Acute Code(s): M54.12 - RADICULOPATHY, CERVICAL REGION SNOMED Code(s): 13707487 (3) Osteoarthritis of left knee Current Visit: No Status: Acute Code(s): M17.12 - UNILATERAL PRIMARY OSTEOARTHRITIS, LEFT KNEE SNOMED Code(s): 258909438443328 (4) Rheumatoid arthritis Current Visit: No Status: Acute Code(s): M06.9 - RHEUMATOID ARTHRITIS, UNSPECIFIED SNOMED Code(s): 93963889 Plan: Continue adequate pain control, Ambien as needed for sleep. Continue to follow surgeon's recommendation and work with physical therapy. Patient seen and evaluated by nurse practitioner, physician in agreement with plan
[2023-11-02] MEDS: FUROSEMIDE 10 MG/ML 4 ML VIAL IV STA (09:45)
--- NOTE | 2023-11-02 09:53 | P.PN ---
Subjective HISTORY OF PRESENT ILLNESS: This is a 73-year-old male with a past medical history significant for paroxysmal atrial fibrillation, hypertension, hyperlipidemia, rheumatoid arthritis, ulcerative colitis, and former nicotine dependence. Patient follows in the office with Dr. Calloway. We have been asked to see the patient in consultation for atrial fibrillation. Patient examined at the bedside. Patient is status post revision of left total knee arthroplasty secondary to infected left total knee. Patient went into A-fib with RVR afterwards with a heart rate in the 120s. He was started back on his home medications and subsequently converted to sinus mechanism. He is maintaining sinus mechanism this morning. Patient's blood pressures are running on the lower side this morning with a systolic in the 90s. Patient denies any chest pain or pressure. He denies any shortness of breath. DIAGNOSTICS: - EKG reveals atrial fibrillation with mild RVR - Laboratory data: WBC 8.15. Hemoglobin 8.8. Platelet count 153. - Current home cardiac medications include Eliquis 5 mg twice a day, simvastatin 80 mg daily, carvedilol 3.125 mg twice a day, ramipril 10 mg daily. - Most recent echocardiogram obtained in October 2021 revealed ejection fraction 40 to 45% 11/02/2023 Patient examined this morning at the bedside. Patient denies chest pain or pressure. He denies shortness of breath. Telemetry reveals sinus mechanism. Patient states he started working with physical therapy yesterday. Vital signs are stable. PHYSICAL EXAM: VITAL SIGNS: Reviewed. GENERAL: Well-developed in no acute distress. HEENT: Head is normocephalic. Pupils are equal, round. Sclerae anicteric. Mucous membranes of the mouth are moist. Neck supple. No JVD or thyromegaly LUNGS: Respirations even and unlabored. Lungs essentially clear to auscultation bilaterally. HEART: Regular rate and rhythm. S1 and S2 heard. ABDOMEN: Soft. Nondistended. Nontender. EXTREMITIES: Normal range of motion. No clubbing or cyanosis. Peripheral pulses intact. Bilateral lower extremity edema NEUROLOGIC: Awake and alert. Oriented x 3. ASSESSMENT: Infected left total knee arthroplasty, status post revision of left TKA Paroxysmal atrial fibrillation, currently maintaining sinus mechanism Hypertension, blood pressures currently on the lower side History of cardiomyopathy, 40 to 45%, etiology unclear Hyperlipidemia Rheumatoid arthritis History of ulcerative colitis Former nicotine dependence Lower extremity edema, likely secondary to immobility PLAN: Patient has been resumed on Eliquis Lisinopril discontinued secondary to soft blood pressures Continue current dose of metoprolol Patient requesting for telemetry to be discontinued. Okay from a cardiology standpoint. Give 1 dose of IV Lasix for lower extremity swelling Further recommendations pending patient course Nurse practitioner note has been reviewed by physician. Signing provider agrees with the documented findings, assessment, and plan of care documented by JEWEL HOLE CORNERER as a scribe. Objective - Vital Signs Vital signs: Vital Signs Temp 98.3 F 11/02/23 07:14 Pulse 51 L 11/02/23 07:14 Resp 16 11/02/23 07:14 BP 116/76 11/02/23 07:14 Pulse Ox 93 L 11/02/23 07:14 FiO2 - Labs CBC & Chem 7: 11/01/23 05:46 11/01/23 05:46 Labs: Microbiology - Last 24 Hours (Table) 10/31/23 10:50 Gram Stain - Preliminary Knee - Left Wound Culture - Preliminary 10/31/23 10:51 Gram Stain - Preliminary Knee - Left Wound Culture - Preliminary
[2023-11-02 11:26] LABS: HCT 25.5 % (39.6-50.0); HGB 8.1 g/dL (13.0-17.0); MCH 31.8 pg (27.0-32.0); MCHC 31.8 g/dL (32.0-37.0); Mean Platelet Volume 10.7 FL (9.5-12.2); NRBC Per 100 WBC 0 X 10*3/uL (0.00-0.01); Platelet Count 132 X 10*3/uL (140-440); RBC 2.55 X 10*6/uL (4.40-5.60); RDW 16.4 % (11.5-14.5); WBC 6.94 X 10*3/uL (4.50-10.00)
[2023-11-02 11:52] LABS: BUN/Creat Ratio 24.17 Ratio (12.00-20.00); Blood Urea Nitrogen 14.5 mg/dL (9.0-27.0); Carbon Dioxide 28.7 mmol/L (21.6-31.8); Chloride 101 mmol/L (96-109); Glucose 84 mg/dL (70-110); Potassium 3.9 mmol/L (3.5-5.5); Sodium 136 mmol/L (135-145)
[2023-11-02 11:53] LABS: ALT 8 U/L (10-49); AST 14 U/L (14-35); Albumin 3.3 g/dL (3.8-4.9); Albumin/Globulin Ratio 1.74 Ratio (1.60-3.17); Alkaline Phosphatase 49 U/L (41-126); Calcium 8.3 mg/dL (8.7-10.3); Globulin 1.9 g/dL (1.6-3.3); Total Bilirubin 0.4 mg/dL (0.3-1.2); Total Protein 5.2 g/dL (6.2-8.2)
--- NOTE | 2023-11-02 13:36 | P.PN ---
Subjective Progress Note Date: 11/02/23 This is a 73-year-old male who is status post stage II revision left total knee arthroplasty with removal of antibiotic spacer and placement of revision left total knee. This is postoperative day #2 and patient is seen and evaluated at bedside today. Patient states that his pain is well-controlled and he has been able to ambulate to the restroom and back with some assistance. Patient states that he has not worked with physical therapy yet today. Patient denies any new complaints today. Objective - Vital Signs Vital signs: Vital Signs Temp 98.3 F 11/02/23 07:14 Pulse 51 L 11/02/23 07:14 Resp 16 11/02/23 07:14 BP 116/76 11/02/23 07:14 Pulse Ox 93 L 11/02/23 07:14 FiO2 Intake & Output 11/01/23 11/02/23 11/02/23 18:59 06:59 18:59 Output Total 800 Balance -800 Output: Urine 800 - Exam Vital signs are stable. Patient is in no acute distress and is alert and oriented 3. Calf is soft and nontender to palpation. Dressing is clean, dry, and intact. Patient has full foot and ankle motion without pain or difficulty. Sensation intact. Neurovascular status and circulatory status are intact. - Labs CBC & Chem 7: 11/02/23 07:01 11/02/23 07:01 Labs: Abnormal Lab Results - Last 24 Hours (Table) 11/02/23 11/02/23 Range/Units 07:01 07:01 RBC 2.55 L (4.40-5.60) X 10*6/uL Hgb 8.1 L (13.0-17.0) g/dL Hct 25.5 L (39.6-50.0) % MCV 100.0 H (80.0-97.0) FL MCHC 31.8 L (32.0-37.0) g/dL RDW 16.4 H (11.5-14.5) % Plt Count 132 L (140-440) X 10*3/uL BUN/Creatinine Ratio 24.17 H (12.00-20.00) Ratio Calcium 8.3 L (8.7-10.3) mg/dL ALT 8 L (10-49) U/L Total Protein 5.2 L (6.2-8.2) g/dL Albumin 3.3 L (3.8-4.9) g/dL Microbiology - Last 24 Hours (Table) 10/31/23 10:51 Gram Stain - Final Knee - Left Wound Culture - Final 10/31/23 10:50 Gram Stain - Final Knee - Left Wound Culture - Final Assessment and Plan Assessment: Stage II revision left total knee arthroplasty with removal of antibiotic spacer and placement of revision left total knee. (1) History of removal of joint prosthesis of left knee due to infection Current Visit: Yes Status: Acute Code(s): Z98.890 - OTHER SPECIFIED POSTPROCEDURAL STATES; Z86.19 - PERSONAL HISTORY OF OTHER INFECTIOUS AND PARASITIC DISEASES SNOMED Code(s): 772349332 (2) S/P revision of total knee Current Visit: Yes Status: Acute Code(s): Z96.659 - PRESENCE OF UNSPECIFIED ARTIFICIAL KNEE JOINT SNOMED Code(s): 5862116690306 (3) History of total knee arthroplasty Current Visit: Yes Status: Acute Code(s): Z96.659 - PRESENCE OF UNSPECIFIED ARTIFICIAL KNEE JOINT SNOMED Code(s): 6019633562336 Plan: #1 Continue with routine postoperative care and pain control, leave dressing in place for 7 days. #2 Patient has resumed Eliquis. #3 Physical therapy today. #4 Appreciate input from internal medicine and infectious disease. #5 Cultures are negative. #6 Anticipate discharge home with home care or to [facility] in the next 24-48 hours.
[2023-11-02] MEDS: CYCLOBENZAPRINE 10 MG TAB PO PRN (15:49)
--- NOTE | 2023-11-02 15:59 | P.PN ---
Subjective Progress Note Date: 11/01/23 Principal diagnosis: Reason for follow-up is left knee septic arthritis Patient is a 73-year-old male with a past medical history significant for hypertension hyperlipidemia rheumatoid arthritis ulcerative colitis in this patient who did have a history of left knee septic arthritis electively admitted to hospital for a stage II surgery completed on 10/31/2023 On today's evaluation that is 11/01/2023, Patient is afebrile patient is currently on room air and denies having any shortness of breath, the patient denies any chest pain or cough, the patient denies any nausea vomiting did not have any abdominal pain and no diarrhea, the patient pain to the left knee is c urrently controlled and mention he took his first appointment this morning Patient white count is 8.14 creatinine 0.56 Objective - Vital Signs Vital signs: Vital Signs Temp 98.1 F 11/01/23 07:29 Pulse 54 L 11/01/23 07:29 Resp 17 11/01/23 07:29 BP 96/53 11/01/23 07:29 Pulse Ox 97 11/01/23 10:20 FiO2 Intake & Output 10/31/23 11/01/23 11/01/23 18:59 06:59 18:59 Intake Total 2951 Output Total 900 Balance 2050 Weight 117.6 kg Intake: IV 2951 Output: Urine 800 Estimated Blood Loss 100 - Exam GENERAL DESCRIPTION: An elderly male lying in bed in no distress RESPIRATORY SYSTEM: Unlabored breathing , decreased breath sounds at bases HEART: S1 S2 regular rate and rhythm , ABDOMEN: Soft , no tenderness EXTREMITIES: Left knee is covered in postop dressing - Labs CBC & Chem 7: 11/02/23 07:01 11/02/23 07:01 Labs: Abnormal Lab Results - Last 24 Hours (Table) 10/31/23 11/01/23 11/01/23 Range/Units 17:09 05:46 05:46 RBC 2.75 L (4.40-5.60) X 10*6/uL Hgb 8.8 L (13.0-17.0) g/dL Hct 26.9 L (39.6-50.0) % MCV 97.8 H (80.0-97.0) FL RDW 16.1 H (11.5-14.5) % Lymphocytes # 0.29 L (0.90-5.00) X 10*3/uL Eosinophils # 0.01 L (0.04-0.35) X 10*3/uL Creatinine 0.57 L 0.56 L (0.66-1.25) mg/dL Microbiology - Last 24 Hours (Table) 10/31/23 10:50 Gram Stain - Preliminary Knee - Left Wound Culture - Preliminary 10/31/23 10:51 Gram Stain - Preliminary Knee - Left Wound Culture - Preliminary Assessment and Plan (1) Septic arthritis of knee, left Current Visit: No Status: Acute Code(s): M00.9 - PYOGENIC ARTHRITIS, UNSPECIFIED SNOMED Code(s): 763261111 Plan: 1patient with a complicated history of left knee septic arthritis in this patient electively admitted to the hospital for stage II procedure with removal of the antibiotic spacer and placement of the artificial knee operative report did not mention any evidence of purulence patient not running any fever and recently did have normal inflammatory markers 2-patient continue with the vancomycin perioperatively while waiting for the culture to finalize Dictation was produced using [employer] dictation software. please excuse any grammatical, word or spelling errors. Time with Patient: Less than 30
--- NOTE | 2023-11-02 16:00 | P.PN ---
Subjective Progress Note Date: 11/02/23 Principal diagnosis: Reason for follow-up is left knee septic arthritis Patient is a 73-year-old male with a past medical history significant for hypertension hyperlipidemia rheumatoid arthritis ulcerative colitis in this patient who did have a history of left knee septic arthritis electively admitted to hospital for a stage II surgery completed on 10/31/2023 On today's evaluation that is 11/02/2023, patient has been afebrile, patient is breathing comfortably and is currently on room air, patient denies having any significant cough no chest pain shortness of breath, patient denies nausea vomiting or diarrhea and no abdominal pain, complaining of slight more pain to the left ankle hand swelling to the lower extremity but the patient was started on Lasix mention he did have significant amount of urine output. Patient white count is 6.94, creatinine 0.64 cultures negative Objective - Vital Signs Vital signs: Vital Signs Temp 98.3 F 11/02/23 07:14 Pulse 51 L 11/02/23 07:14 Resp 16 11/02/23 07:14 BP 116/76 11/02/23 07:14 Pulse Ox 93 L 11/02/23 07:14 FiO2 Intake & Output 11/01/23 11/02/23 11/02/23 18:59 06:59 18:59 Output Total 800 Balance -800 Output: Urine 800 - Exam GENERAL DESCRIPTION: An elderly male lying in bed in no distress RESPIRATORY SYSTEM: Unlabored breathing , decreased breath sounds at bases HEART: S1 S2 regular rate and rhythm , ABDOMEN: Soft , no tenderness EXTREMITIES: Left knee is covered in postop dressing - Labs CBC & Chem 7: 11/02/23 07:01 11/02/23 07:01 Labs: Abnormal Lab Results - Last 24 Hours (Table) 11/02/23 11/02/23 Range/Units 07:01 07:01 RBC 2.55 L (4.40-5.60) X 10*6/uL Hgb 8.1 L (13.0-17.0) g/dL Hct 25.5 L (39.6-50.0) % MCV 100.0 H (80.0-97.0) FL MCHC 31.8 L (32.0-37.0) g/dL RDW 16.4 H (11.5-14.5) % Plt Count 132 L (140-440) X 10*3/uL BUN/Creatinine Ratio 24.17 H (12.00-20.00) Ratio Calcium 8.3 L (8.7-10.3) mg/dL ALT 8 L (10-49) U/L Total Protein 5.2 L (6.2-8.2) g/dL Albumin 3.3 L (3.8-4.9) g/dL Microbiology - Last 24 Hours (Table) 10/31/23 10:51 Gram Stain - Final Knee - Left Wound Culture - Final 10/31/23 10:50 Gram Stain - Final Knee - Left Wound Culture - Final Assessment and Plan (1) Septic arthritis of knee, left Current Visit: No Status: Acute Code(s): M00.9 - PYOGENIC ARTHRITIS, UNSPECIFIED SNOMED Code(s): 376961323 Plan: 1patient with a complicated history of left knee septic arthritis in this patient electively admitted to the hospital for stage II procedure with removal of the antibiotic spacer and placement of the artificial knee operative report did not mention any evidence of purulence patient not running any fever and recently did have normal inflammatory markers 2-patient remains to be afebrile patient white count is normal overall culture negative continue with the vancomycin however can be discontinued on discharge and plan for no antibiotics on discharge this was discussed in detail with the patient Dictation was produced using [employer] dictation software. please excuse any grammatical, word or spelling errors. Time with Patient: Less than 30
[2023-11-03] MEDS: VANCOMYCIN TROUGH DUE 1 EACH MISC MISCELLANE ONE (05:45)
[2023-11-03 08:37] LABS: Basophils # (A) 0.04 X 10*3/uL (0.00-0.10); Basophils % (A) 0.6 %; Eosinophils # (A) 0.25 X 10*3/uL (0.04-0.35); Eosinophils % (A) 3.9 %; HCT 26.7 % (39.6-50.0); HGB 8.4 g/dL (13.0-17.0); Lymphocytes % (A) 13.9 %; MCH 31.6 pg (27.0-32.0); MCHC 31.5 g/dL (32.0-37.0); MCV 100.4 FL (80.0-97.0); Mean Platelet Volume 11.2 FL (9.5-12.2); Monocytes # (A) 0.74 X 10*3/uL (0.20-1.00); Monocytes % (A) 11.4 %; NRBC Per 100 WBC 0 X 10*3/uL (0.00-0.01); Neutrophils % (A) 69.6 %; Platelet Count 169 X 10*3/uL (140-440); RBC 2.66 X 10*6/uL (4.40-5.60); RDW 16.4 % (11.5-14.5); WBC 6.47 X 10*3/uL (4.50-10.00)
--- NOTE | 2023-11-03 08:45 | P.PN ---
Subjective Principal diagnosis: Status post knee revision. The patient is doing well postop day #3. No fever or chills. Objective - Vital Signs Vital signs: Vital Signs Temp 98.3 F 11/03/23 02:44 Pulse 61 11/03/23 02:44 Resp 20 11/03/23 02:44 BP 125/69 11/03/23 02:44 Pulse Ox 96 11/03/23 08:17 FiO2 Intake & Output 11/02/23 11/03/23 11/03/23 18:59 06:59 18:59 Intake Total 980 Output Total 800 400 Balance -800 980 -400 Intake: Oral 980 Output: Urine 800 400 Other: # Voids 4 - Constitutional General appearance: Present: cooperative, no acute distress - EENT Eyes: Absent: abnormal pupil - Neck Neck: Absent: lymphadenopathy - Respiratory Respiratory: bilateral: diminished - Cardiovascular Rhythm: regular Heart sounds: normal: S1, S2 Abnormal Heart Sounds: Absent: S3 Gallop - Gastrointestinal General gastrointestinal: Present: soft. Absent: tenderness - Integumentary Integumentary: Absent: cellulitis - Labs CBC & Chem 7: 11/03/23 04:54 11/02/23 07:01 Labs: Abnormal Lab Results - Last 24 Hours (Table) 11/02/23 11/02/23 11/03/23 Range/Units 07:01 07:01 04:54 RBC 2.55 L 2.66 L (4.40-5.60) X 10*6/uL Hgb 8.1 L 8.4 L (13.0-17.0) g/dL Hct 25.5 L 26.7 L (39.6-50.0) % MCV 100.0 H 100.4 H (80.0-97.0) FL MCHC 31.8 L 31.5 L (32.0-37.0) g/dL RDW 16.4 H 16.4 H (11.5-14.5) % Plt Count 132 L (140-440) X 10*3/uL BUN/Creatinine Ratio 24.17 H (12.00-20.00) Ratio Calcium 8.3 L (8.7-10.3) mg/dL ALT 8 L (10-49) U/L Total Protein 5.2 L (6.2-8.2) g/dL Albumin 3.3 L (3.8-4.9) g/dL Microbiology - Last 24 Hours (Table) 10/31/23 10:50 Anaerobic Culture - Preliminary Knee - Left 10/31/23 10:51 Anaerobic Culture - Preliminary Knee - Left 10/31/23 10:51 Gram Stain - Final Knee - Left Wound Culture - Final 10/31/23 10:50 Gram Stain - Final Knee - Left Wound Culture - Final Assessment and Plan (1) History of total knee arthroplasty Current Visit: Yes Status: Acute Code(s): Z96.659 - PRESENCE OF UNSPECIFIED ARTIFICIAL KNEE JOINT SNOMED Code(s): 0281318285615 (2) Cervical radiculopathy Current Visit: No Status: Acute Code(s): M54.12 - RADICULOPATHY, CERVICAL REGION SNOMED Code(s): 23885990 (3) Osteoarthritis of left knee Current Visit: No Status: Acute Code(s): M17.12 - UNILATERAL PRIMARY OSTEO ARTHRITIS, LEFT KNEE SNOMED Code(s): 004072606439561 (4) Rheumatoid arthritis Current Visit: No Status: Acute Code(s): M06.9 - RHEUMATOID ARTHRITIS, UNSPECIFIED SNOMED Code(s): 00072974 Plan: Pain control. Continue e physical therapy today. Reconcile home medications. Will continue to follow. Dissipate discharge in next 24 hours..
[2023-11-03 08:47] LABS: ALT 7 U/L (10-49); AST 13 U/L (14-35); Albumin 3.5 g/dL (3.8-4.9); Albumin/Globulin Ratio 1.75 Ratio (1.60-3.17); Alkaline Phosphatase 54 U/L (41-126); BUN/Creat Ratio 17.57 Ratio (12.00-20.00); Blood Urea Nitrogen 12.3 mg/dL (9.0-27.0); Calcium 8.5 mg/dL (8.7-10.3); Carbon Dioxide 28.9 mmol/L (21.6-31.8); Chloride 100 mmol/L (96-109); Glucose 92 mg/dL (70-110); Potassium 3.6 mmol/L (3.5-5.5); Sodium 140 mmol/L (135-145); Total Bilirubin 0.5 mg/dL (0.3-1.2); Total Protein 5.5 g/dL (6.2-8.2)
--- NOTE | 2023-11-03 08:47 | P.DS ---
Providers Date of admission: 10/31/23 07:40 Expected date of discharge: 11/03/23 Attending physician: Shen Del Rosario Consults: 10/31/23 10:03 Consult Physician Routine Consulting Provider: Lorenzo Thomas Consult Reason/Comments: medical management Do you want consulting provider notified?: Yes 10/31/23 10:26 Consult Physician Routine Consulting Provider: Mahad Cornelius Consult Reason/Comments: s/p stage II revision left knee Do you want consulting provider notified?: Yes 10/31/23 15:18 Consult Physician Routine Consulting Provider: Jaime Calloway Consult Reason/Comments: atrial fib Do you want consulting provider notified?: Yes Primary care physician: Lorenzo Thomas - Discharge Diagnosis(es) (1) 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 He has history of total left knee infection and had under gone a stage I revision in the past. The patient is doing well on postop day #3. He has no new complaints or concerns today. He is feeling well and requesting that he be discharged to home today. Vital signs are stable and labs are stable on postop day #3. Patient is discharged to home in good condition. He is to follow-up in 2 weeks for reevaluation and x-ray. He is to follow-up with infectious disease as directed. Plan - Discharge Summary Discharge Rx Participant: No New Discharge Prescriptions: New HYDROcodone/APAP 7.5-325MG [[place] 7.5-325] 1 - 2 tab PO Q6H PRN #32 tab PRN Reason: Pain Sennosides [Senokot] 2 tab PO DAILY PRN #60 tablet PRN Reason: Constipation No Action Simvastatin [Zocor] 80 mg PO DAILY azaTHIOprine [Imuran] 50 mg PO TID Folic Acid 1 mg PO DAILY allopurinoL [Zyloprim] 300 mg PO DAILY Doxazosin Mesylate [Cardura] 4 mg PO BID Calcium Carbonate [Calcium] 600 mg PO DAILY #0 Morphine Pain Pump 1 dose INTRATHECA CONTINUOUS ramipriL [Altace] 10 mg PO DAILY rOPINIRole HCL [Requip] 4 mg PO HS Gabapentin [Neurontin] 300 mg PO TID #9 cap Ciprofloxacin HCl [Cipro] 500 mg PO BID Apixaban [Eliquis] 5 mg PO BID 30 Days #60 tab clonazePAM [KlonoPIN] 4 mg PO BID Ferrous Sulfate [Iron (65 MG Elemental)] 325 mg PO DAILY tab carvediloL [Coreg] 3.125 mg PO BID Nf-Methotrexate Inj. 1 injection INJ MO HYDROcodone/APAP 10-325MG [[place] 10-325] 1 tab PO Q4-6H PRN #30 tab PRN Reason: Pain Discharge Medication List Doxazosin Mesylate [Cardura] 4 mg PO BID 10/14/15 [History] Folic Acid 1 mg PO DAILY 10/14/15 [History] Simvastatin [Zocor] 80 mg PO DAILY 10/14/15 [History] allopurinoL [Zyloprim] 300 mg PO DAILY 10/14/15 [History] azaTHIOprine [Imuran] 50 mg PO TID 10/14/15 [History] Calcium Carbonate [Calcium] 600 mg PO DAILY #0 12/05/18 [History] Morphine Pain Pump 1 dose INTRATHECA CONTINUOUS 12/05/19 [History] ramipriL [Altace] 10 mg PO DAILY 02/11/20 [History] rOPINIRole HCL [Requip] 4 mg PO HS 07/14/21 [History] Ferrous Sulfate [Iron (65 MG Elemental)] 325 mg PO DAILY tab 07/21/21 [Rx] Gabapentin [Neurontin] 300 mg PO TID #9 cap 07/21/21 [Rx] Ciprofloxacin HCl [Cipro] 500 mg PO BID 11/14/21 [History] carvediloL [Coreg] 3.125 mg PO BID 11/14/21 [History] Apixaban [Eliquis] 5 mg PO BID 30 Days #60 tab 11/17/21 [Rx] Nf-Methotrexate Inj. 1 injection INJ MO 03/10/23 [History] clonazePAM [KlonoPIN] 4 mg PO BID 03/10/23 [History] HYDROcodone/APAP 10-325MG [[place] 10-325] 1 tab PO Q4-6H PRN #30 tab 03/20/23 [Rx] HYDROcodone/APAP 7.5-325MG [[place] 7.5-325] 1 - 2 tab PO Q6H PRN #32 tab 11/02/23 [Rx] Sennosides [Senokot] 2 tab PO DAILY PRN #60 tablet 11/02/23 [Rx] Follow up Appointment(s)/Referral(s): [facility], [NON-STAFF] - 1-2 Days Shen Del Rosario DO [Doctor of Osteopathic Medicine] - 11/14/23 1:00 pm (With Isidra) Activity/Diet/Wound Care/Special Instructions: Weightbearing as tolerated with a walker. CPM 5-6h daily as tolerated. Leave dressing intact. Dressing may be removed by home care nurse or by patient in 7 days. Then change dressing twice daily until follow up. May shower with initial dressing intact and after removal. If dressing become saturated, please remove. Recommend use of compression stockings daily until follow up to help prevent swelling and blood clots. May remove at night before sleeping. Please resume Eliquis. Please follow up with [facility] and call with any questions or concerns, .
[2023-11-03] MEDS: FUROSEMIDE 20 MG TAB PO SCH (10:36)
--- NOTE | 2023-11-03 12:11 | P.PN ---
Subjective HISTORY OF PRESENT ILLNESS: This is a 73-year-old male with a past medical history significant for paroxysmal atrial fibrillation, hypertension, hyperlipidemia, rheumatoid arthritis, ulcerative colitis, and former nicotine dependence. Patient follows in the office with Dr. Calloway. We have been asked to see the patient in consultation for atrial fibrillation. Patient examined at the bedside. Patient is status post revision of left total knee arthroplasty secondary to infected left total knee. Patient went into A-fib with RVR afterwards with a heart rate in the 120s. He was started back on his home medications and subsequently converted to sinus mechanism. He is maintaining sinus mechanism this morning. Patient's blood pressures are running on the lower side this morning with a systolic in the 90s. Patient denies any chest pain or pressure. He denies any shortness of breath. DIAGNOSTICS: - EKG reveals atrial fibrillation with mild RVR - Laboratory data: WBC 8.15. Hemoglobin 8.8. Platelet count 153. - Current home cardiac medications include Eliquis 5 mg twice a day, simvastatin 80 mg daily, carvedilol 3.125 mg twice a day, ramipril 10 mg daily. - Most recent echocardiogram obtained in October 2021 revealed ejection fraction 40 to 45% 11/02/2023 Patient examined this morning at the bedside. Patient denies chest pain or pressure. He denies shortness of breath. Telemetry reveals sinus mechanism. Patient states he started working with physical therapy yesterday. Vital signs are stable. 11/02/2023 Patient examined this morning at the bedside. Patient denies chest pain or pressure. He denies shortness of breath. Vital signs are stable. Patient continues to have lower extremity edema although improving from yesterday. He is hoping to be discharged home today. PHYSICAL EXAM: VITAL SIGNS: Reviewed. GENERAL: Well-developed in no acute distress. HEENT: Head is normocephalic. Pupils are equal, round. Sclerae anicteric. Mucous membranes of the mouth are moist. Neck supple. No JVD or thyromegaly LUNGS: Respirations even and unlabored. Lungs essentially clear to auscultation bilaterally. HEART: Regular rate and rhythm. S1 and S2 heard. ABDOMEN: Soft. Nondistended. Nontender. EXTREMITIES: Normal range of motion. No clubbing or cyanosis. Peripheral pulses intact. Bilateral lower extremity edema NEUROLOGIC: Awake and alert. Oriented x 3. ASSESSMENT: Infected left total knee arthroplasty, status post revision of left TKA Paroxysmal atrial fibrillation, currently maintaining sinus mechanism Hypertension, blood pressures currently on the lower side History of cardiomyopathy, 40 to 45%, etiology unclear Hyperlipidemia Rheumatoid arthritis History of ulcerative colitis Former nicotine dependence Lower extremity edema, likely secondary to immobility PLAN: Patient has been resumed on Eliquis Lisinopril and carvedilol discontinued secondary to soft blood pressures Add small dose of oral Lasix secondary to lower extremity swelling Patient is stable for discharge home today from a cardiac standpoint We will sign off. Please reconsult if needed. Nurse practitioner note has been reviewed by physician. Signing provider agrees with the documented findings, assessment, and plan of care documented by [employer] as a scribe. Objective - Vital Signs Vital signs: Vital Signs Temp 98.4 F 11/03/23 07:14 Pulse 74 11/03/23 07:14 Resp 18 11/03/23 07:14 BP 143/82 11/03/23 07:14 Pulse Ox 96 11/03/23 08:17 FiO2 Intake & Output 11/02/23 11/03/23 11/03/23 18:59 06:59 18:59 Intake Total 980 Output Total 800 400 Balance -800 980 -400 Intake: Oral 980 Output: Urine 800 400 Other: # Voids 4 - Labs CBC & Chem 7: 11/03/23 04:54 11/03/23 04:54 Labs: Abnormal Lab Results - Last 24 Hours (Table) 11/03/23 11/03/23 Range/Units 04:54 04:54 RBC 2.66 L (4.40-5.60) X 10*6/uL Hgb 8.4 L (13.0-17.0) g/dL Hct 26.7 L (39.6-50.0) % MCV 100.4 H (80.0-97.0) FL MCHC 31.5 L (32.0-37.0) g/dL RDW 16.4 H (11.5-14.5) % Calcium 8.5 L (8.7-10.3) mg/dL AST 13 L (14-35) U/L ALT 7 L (10-49) U/L Total Protein 5.5 L (6.2-8.2) g/dL Albumin 3.5 L (3.8-4.9) g/dL Microbiology - Last 24 Hours (Table) 10/31/23 10:50 Anaerobic Culture - Preliminary Knee - Left 10/31/23 10:51 Anaerobic Culture - Preliminary Knee - Left 10/31/23 10:51 Gram Stain - Final Knee - Left Wound Culture - Final 10/31/23 10:50 Gram Stain - Final Knee - Left Wound Culture - Final
--- NOTE | 2023-11-03 12:35 | P.PN ---
Subjective Progress Note Date: 11/03/23 Principal diagnosis: Reason for follow-up is left knee septic arthritis Patient is a 73-year-old male with a past medical history significant for hypertension hyperlipidemia rheumatoid arthritis ulcerative colitis in this patient who did have a history of left knee septic arthritis electively admitted to hospital for a stage II surgery completed on 10/31/2023 On today's evaluation that is 11/03/2023,the patient denies any fever or any chills, patient is breathing comfortably on room air, the patient denies chest pain shortness of breath and no significant cough, patient denies abdominal pain, no nausea vomiting or diarrhea. Patient pain to the left knee area is currently controlled and the patient was able to walk with the help of walker on the stairs. Patient white count is 6.47, creatinine 0.7 culture has been negative Objective - Vital Signs Vital signs: Vital Signs Temp 98.4 F 11/03/23 07:14 Pulse 74 11/03/23 07:14 Resp 18 11/03/23 07:14 BP 143/82 11/03/23 07:14 Pulse Ox 96 11/03/23 08:17 FiO2 Intake & Output 11/02/23 11/03/23 11/03/23 18:59 06:59 18:59 Intake Total 980 Output Total 800 400 Balance -800 980 -400 Intake: Oral 980 Output: Urine 800 400 Other: # Voids 4 - Exam GENERAL DESCRIPTION: An elderly male lying in bed in no distress RESPIRATORY SYSTEM: Unlabored breathing , decreased breath sounds at bases HEART: S1 S2 regular rate and rhythm , ABDOMEN: Soft , no tenderness EXTREMITIES: Left knee is covered in postop dressing with minimal bloodstained on the lower end of the dressing - Labs CBC & Chem 7: 11/03/23 04:54 11/03/23 04:54 Labs: Abnormal Lab Results - Last 24 Hours (Table) 11/02/23 11/02/23 11/03/23 Range/Units 07:01 07:01 04:54 RBC 2.55 L 2.66 L (4.40-5.60) X 10*6/uL Hgb 8.1 L 8.4 L (13.0-17.0) g/dL Hct 25.5 L 26.7 L (39.6-50.0) % MCV 100.0 H 100.4 H (80.0-97.0) FL MCHC 31.8 L 31.5 L (32.0-37.0) g/dL RDW 16.4 H 16.4 H (11.5-14.5) % Plt Count 132 L (140-440) X 10*3/uL BUN/Creatinine Ratio 24.17 H (12.00-20.00) Ratio Calcium 8.3 L (8.7-10.3) mg/dL AST (14-35) U/L ALT 8 L (10-49) U/L Total Protein 5.2 L (6.2-8.2) g/dL Albumin 3.3 L (3.8-4.9) g/dL 11/03/23 Range/Units 04:54 RBC (4.40-5.60) X 10*6/uL Hgb (13.0-17.0) g/dL Hct (39.6-50.0) % MCV (80.0-97.0) FL MCHC (32.0-37.0) g/dL RDW (11.5-14.5) % Plt Count (140-440) X 10*3/uL BUN/Creatinine Ratio (12.00-20.00) Ratio Calcium 8.5 L (8.7-10.3) mg/dL AST 13 L (14-35) U/L ALT 7 L (10-49) U/L Total Protein 5.5 L (6.2-8.2) g/dL Albumin 3.5 L (3.8-4.9) g/dL Microbiology - Last 24 Hours (Table) 10/31/23 10:50 Anaerobic Culture - Preliminary Knee - Left 10/31/23 10:51 Anaerobic Culture - Preliminary Knee - Left 10/31/23 10:51 Gram Stain - Final Knee - Left Wound Culture - Final 10/31/23 10:50 Gram Stain - Final Knee - Left Wound Culture - Final Assessment and Plan (1) Septic arthritis of knee, left Current Visit: No Status: Acute Code(s): M00.9 - PYOGENIC ARTHRITIS, U NSPECIFIED SNOMED Code(s): 752121369 Plan: 1patient with a complicated history of left knee septic arthritis in this patient electively admitted to the hospital for stage II procedure with removal of the antibiotic spacer and placement of the artificial knee operative report did not mention any evidence of purulence patient not running any fever and recently did have normal inflammatory markers 2-patient remains to be afebrile patient white count is normal, OR culture has been negative, no need for antibiotic therapy on discharge however the current dressing should be changed as it is soaked with the blood discussed with the nursing staff patient advised if any swelling redness or fever to let me know right away Dictation was produced using [employer] software. please excuse any grammatical, word or spelling errors. Time with Patient: Less than 30
[2023-11-04] MEDS: ZOLPIDEM 5 MG TAB PO PRN (00:32)
[2023-11-04 03:21] VITALS: RESP 18
[2023-11-04 08:44] VITALS: BP 138/83; PULSE 53; TEMP 98.4
--- NOTE | 2023-11-04 09:27 | P.DS ---
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 He has history of total left knee infection and had under gone a stage I revision in the past. The patient is doing well on postop day #4. He did have some bleeding on his incision yesterday that held his discharge. The bloody drainage has slowed down today. He will apply his knee immobilizer when he gets home. He is feeling well and requesting that he be discharged to home today. Vital signs are stable and labs are stable on postop day #4. Patient is discharged to home in good condition. He is to follow-up in 2 weeks for reevaluation and x-ray. He is to follow-up with infectious disease as directed. Pertinent Studies: Laboratory Tests 11/03/23 04:54 WBC 6.47 RBC 2.66 L Hgb 8.4 L Hct 26.7 L MCV 100.4 H MCHC 31.5 L RDW 16.4 H Patient Condition at Discharge: Stable Plan - Discharge Summary Discharge Rx Participant: No New Discharge Prescriptions: New Furosemide [Lasix] 20 mg PO DAILY #90 tab Sennosides-Docusate Sodium [Senokot-S] 2 tab PO DAILY #60 tablet Metoprolol Tartrate [Lopressor] 25 mg PO BID #60 tab Continue Simvastatin [Zocor] 80 mg PO DAILY Apixaban [Eliquis] 5 mg PO BID 30 Days #60 tab Discontinued ramipriL [Altace] 10 mg PO DAILY carvediloL [Coreg] 3.125 mg PO BID No Action azaTHIOprine [Imuran] 50 mg PO TID Folic Acid 1 mg PO DAILY allopurinoL [Zyloprim] 300 mg PO DAILY Doxazosin Mesylate [Cardura] 4 mg PO BID Calcium Carbonate [Calcium] 600 mg PO DAILY #0 Morphine Pain Pump 1 dose INTRATHECA CONTINUOUS rOPINIRole HCL [Requip] 4 mg PO HS Gabapentin [Neurontin] 300 mg PO TID #9 cap Ciprofloxacin HCl [Cipro] 500 mg PO BID clonazePAM [KlonoPIN] 4 mg PO BID Ferrous Sulfate [Iron (65 MG Elemental)] 325 mg PO DAILY tab Nf-Methotrexate Inj. 1 injection INJ MO Discharge Medication List Doxazosin Mesylate [Cardura] 4 mg PO BID 10/14/15 [History] Folic Acid 1 mg PO DAILY 10/14/15 [History] Simvastatin [Zocor] 80 mg PO DAILY 10/14/15 [History] allopurinoL [Zyloprim] 300 mg PO DAILY 10/14/15 [History] azaTHIOprine [Imuran] 50 mg PO TID 10/14/15 [History] Calcium Carbonate [Calcium] 600 mg PO DAILY #0 12/05/18 [History] Morphine Pain Pump 1 dose INTRATHECA CONTINUOUS 12/05/19 [History] rOPINIRole HCL [Requip] 4 mg PO HS 07/14/21 [History] Ferrous Sulfate [Iron (65 MG Elemental)] 325 mg PO DAILY tab 07/21/21 [Rx] Gabapentin [Neurontin] 300 mg PO TID #9 cap 07/21/21 [Rx] Ciprofloxacin HCl [Cipro] 500 mg PO BID 11/14/21 [History] Apixaban [Eliquis] 5 mg PO BID 30 Days #60 tab 11/17/21 [Rx] Nf-Methotrexate Inj. 1 injection INJ MO 03/10/23 [History] clonazePAM [KlonoPIN] 4 mg PO BID 03/10/23 [History] Furosemide [Lasix] 20 mg PO DAILY #90 tab 11/03/23 [Rx] Metoprolol Tartrate [Lopressor] 25 mg PO BID #60 tab 11/03/23 [Rx] Sennosides-Docusate Sodium [Senokot-S] 2 tab PO DAILY #60 tablet 11/04/23 [Rx] Follow up Appointment(s)/Referral(s): [facility], [NON-STAFF] - 1-2 Days Jaime Calloway DO [STAFF PHYSICIAN] - 1 Week Shen Del Rosario DO [Doctor of Osteopathic Medicine] - 11/14/23 1:00 pm (With Isidra) Patient Instructions/Handouts: Knee Arthroscopy (DC) Activity/Diet/Wound Care/Special Instructions: Weightbearing as tolerated with a walker. Apply knee immobilizer when you get home. Leave dressing intact and reinforce dressing as needed. Dressing may be removed by home care nurse or by patient in 7 days. Then change dressing twice daily until follow up. May shower with initial dressing intact and after removal. If dressing become saturated, please remove. Recommend use of compression stockings daily until follow up to help prevent swelling and blood clots. May remove at night before sleeping. Please resume Eliquis. Patient has pain medication at home prescribed from another physician. Please follow up with [facility] and call with any questions or concerns, . Discharge Disposition: HOME WITH HOME HEALTH SERVICES
--- NOTE | 2023-11-04 14:26 | P.PN ---
Subjective Progress Note Date: 11/04/23 73-year-old male who was admitted to [facility] on 10/31/2023 for stage II revision of the left knee. He has history of total left knee infection and had under gone a stage I revision in the past. The patient is doing well on postop day #4 patient was seen as a follow-up patient had already been discharged, Was seen by Dr. Thomas. Cardiology has started patient on metoprolol and Lasix and prescription was sent to patient's preferred pharmacy. PHYSICAL EXAMINATION: GENERAL: The patient is alert and oriented x3, not in any acute distress. Well developed, well nourished. HEENT: Pupils are round and equally reacting to light. EOMI. No scleral icterus. No conjunctival pallor. Normocephalic, atraumatic. No pharyngeal erythema. No thyromegaly. CARDIOVASCULAR: S1 and S2 present. No murmurs, rubs, or gallops. PULMONARY: Chest is clear to auscultation, no wheezing or crackles. ABDOMEN: Soft, nontender, nondistended, normoactive bowel sounds. No palpable organomegaly. MUSCULOSKELETAL: Left knee bandage, asymmetrical lower extremity edema noted EXTREMITIES: No cyanosis, clubbing, or pedal edema. NEUROLOGICAL: Gross neurological examination did not reveal any focal deficits. SKIN: No rashes. Assessment and plan Infected left total knee arthroplasty, status post revision of left TKA postoperative day 4 Paroxysmal atrial fibrillation, currently maintaining sinus mechanism Hypertension, blood pressures currently on the lower side History of cardiomyopathy, 40 to 45%, Hyperlipidemia Rheumatoid arthritis History of ulcerative colitis Former nicotine dependence Lower extremity edema, likely secondary to immobility Patient seen by cardiology and cleared for discharge, patient discharged home, prescription for Lasix and metoprolol sent to preferred pharmacy For atrial fibrillation continue patient on Eliquis and metoprolol Outpatient follow-up with PCP recommended Objective - Vital Signs Vital signs: Vital Signs Temp 98.4 F 11/04/23 07:10 Pulse 53 L 11/04/23 07:10 Resp 18 11/04/23 07:10 BP 138/83 11/04/23 07:10 Pulse Ox 98 11/04/23 07:10 FiO2 Intake & Output 11/03/23 11/04/23 11/04/23 18:59 06:59 18:59 Output Total 400 400 600 Balance -400 -400 -600 Output: Urine 400 400 600 Other: # Voids 1 # Bowel Movements 1 - Labs CBC & Chem 7: 11/03/23 04:54 11/03/23 04:54 Labs: Microbiology - Last 24 Hours (Table) 10/31/23 10:51 Anaerobic Culture - Final Knee - Left 10/31/23 10:50 Anaerobic Culture - Final Knee - Left
--- NOTE | 2023-11-05 14:20 | P.PN ---
Subjective Progress Note Date: 11/04/23 Principal diagnosis: Reason for follow-up is left knee septic arthritis Patient is a 73-year-old male with a past medical history significant for hypertension hyperlipidemia rheumatoid arthritis ulcerative colitis in this patient who did have a history of left knee septic arthritis electively admitted to hospital for a stage II surgery completed on 10/31/2023 On today's evaluation that is 11/04/2023,the patient remains to be afebrile, patient is on room air not requiring supplemental oxygen and denies any shortness of breath no chest pain or cough.Patient denies having any nausea or vomiting, no abdominal pain and no diarrhea has been reported, leaning to the le ft knee area has decreased in intensity. No new labs has been repeated his white count was normal culture has been negative Objective - Vital Signs Vital signs: Vital Signs Temp 98.4 F 11/04/23 07:10 Pulse 53 L 11/04/23 07:10 Resp 18 11/04/23 07:10 BP 138/83 11/04/23 07:10 Pulse Ox 98 11/04/23 07:10 FiO2 Intake & Output 11/03/23 11/04/23 11/04/23 18:59 06:59 18:59 Output Total 400 400 600 Balance -400 -400 -600 Output: Urine 400 400 600 Other: # Voids 1 # Bowel Movements 1 - Exam GENERAL DESCRIPTION: An elderly male lying in bed in no distress RESPIRATORY SYSTEM: Unlabored breathing , decreased breath sounds at bases HEART: S1 S2 regular rate and rhythm , ABDOMEN: Soft , no tenderness EXTREMITIES: Left knee is currently dressed - Labs CBC & Chem 7: 11/03/23 04:54 11/03/23 04:54 Labs: Microbiology - Last 24 Hours (Table) 10/31/23 10:51 Anaerobic Culture - Final Knee - Left 10/31/23 10:50 Anaerobic Culture - Final Knee - Left Assessment and Plan (1) Septic arthritis of knee, left Status: Acute Code(s): M00.9 - PYOGENIC ARTHRITIS, UNSPECIFIED SNOMED Code(s): 308395905 Plan: 1patient with a complicated history of left knee septic arthritis in this patient electively admitted to the hospital for stage II procedure with removal of the antibiotic spacer and placement of the artificial knee operative report did not mention any evidence of purulence patient not running any fever and rec ently did have normal inflammatory markers 2-patient remains to be afebrile patient white count is normal, OR culture has been negative, did have some issues with the bleeding has been addressed by or thopedic patient has been instructed to keep the knee dry and going if any swelling redness or fever to let me know right away multiple questions Were Answered Dictation was produced using [employer] dictation software. please excuse any grammatical, word or spelling errors. Time with Patient: Less than 30
== END 2023-11-04 14:20 | disposition home health service (06) | DRG 467 ==
LOC: 2ORMAIN 07:40 → 4SSUR 14:15
PROVIDERS: ADMIT Orthopaedic Surgery; ATTEND Orthopaedic Surgery
PROC: 0SRD0J9 Replacement of Left Knee Joint with Synthetic Substitute, Cemented, Open Approach (ICD-10-PCS; 2023-10-31)
PROC: 0SPD08Z Removal of Spacer from Left Knee Joint, Open Approach (ICD-10-PCS; 2023-10-31)
PROC: 0SHD08Z Insertion of Spacer into Left Knee Joint, Open Approach (ICD-10-PCS; 2023-10-31)
PROC: 0SPD0JZ Removal of Synthetic Substitute from Left Knee Joint, Open Approach (ICD-10-PCS; principal; 2023-10-31 11:15)
DX: T84.54XA Infection and inflammatory reaction due to internal left knee prosthesis, initial encounter (principal); I42.9 Cardiomyopathy, unspecified; I10 Essential (primary) hypertension; M06.9 Rheumatoid arthritis, unspecified; E11.9 Type 2 diabetes mellitus without complications; I48.0 Paroxysmal atrial fibrillation; M54.12 Radiculopathy, cervical region; E78.5 Hyperlipidemia, unspecified; M79.89 Other specified soft tissue disorders; G47.00 Insomnia, unspecified; M17.12 Unilateral primary osteoarthritis, left knee; G47.30 Sleep apnea, unspecified; R25.1 Tremor, unspecified; Y83.1 Surgical operation with implant of artificial internal device as the cause of abnormal reaction of the patient, or of later complication, without mention of misadventure at the time of the procedure; Z87.19 Personal history of other diseases of the digestive system; Z87.891 Personal history of nicotine dependence; Z79.891 Long term (current) use of opiate analgesic; Z79.01 Long term (current) use of anticoagulants; Z79.899 Other long term (current) drug therapy; Z85.828 Personal history of other malignant neoplasm of skin; Z86.14 Personal history of Methicillin resistant Staphylococcus aureus infection; Z97.8 Presence of other specified devices
CPT/HCPCS: 64448; 64999; 80053; 80202; 82565; 85025; 85027; 87070; 87075; 87205; 94760

== ENCOUNTER → 2023-12-08 | Outpatient (CLI) | payer MEDICARE ==
--- NOTE | 2023-12-08 17:54 | XR ---
EXAMINATION TYPE: XR KUB DATE OF EXAM: 12/08/2023 4:23 PM CLINICAL INDICATION:Male, 73 years old with history of N20.0 KUB XR CALCULUS-KIDNEY; [facility] COMPARISON: 09/26/2022. TECHNIQUE: One radiographic view of the abdomen was obtained. FINDINGS: The bowel gas pattern is nonspecific without dilated loops of small or large bowel. There i s no evidence for organomegaly or pneumoperitoneum. The osseous structures are intact. Fecal materi al and gas are demonstrated throughout the colon and rectum. There are stimulator battery packs with leads present extending up the spine. Multiple bilateral renal calculi measuring up to 12 mm and on the left measuring up to 12 mm. IMPRESSION: 1. Bilateral renal calculi. 2. Nonspecific bowel gas pattern without radiographic evidence for acute process.
== END | disposition home or self-care (01) ==
LOC: RADXRMAIN 15:38
PROVIDERS: ATTEND Urology
DX: N20.0 Calculus of kidney (principal)
CPT/HCPCS: 74018

== ENCOUNTER → 2024-03-05 | Outpatient (CLI) | payer MEDICARE ==
[2024-03-05 19:48] LABS: BUN/Creat Ratio 18.12 Ratio (12.00-20.00); Blood Urea Nitrogen 14.5 mg/dL (9.0-27.0); Calcium 8.6 mg/dL (8.7-10.3); Carbon Dioxide 28.9 mmol/L (21.6-31.8); Chloride 101 mmol/L (96-109); Glucose 95 mg/dL (70-110); Potassium 4.1 mmol/L (3.5-5.5); Sodium 142 mmol/L (135-145)
[2024-03-05 19:50] LABS: NT-Pro-B-Type Natriuretic Pept 735 pg/mL (0-125)
== END | disposition home or self-care (01) ==
LOC: LABWHC1 11:05
PROVIDERS: ATTEND Internal Medicine
DX: I50.22 Chronic systolic (congestive) heart failure (principal); R60.0 Localized edema
CPT/HCPCS: 36415; 80048; 83880

== ENCOUNTER → 2024-06-04 | Outpatient (CLI) | payer MEDICARE ==
[2024-06-04 22:59] LABS: Calcium 8.8 mg/dL (8.7-10.3); Carbon Dioxide 32.2 mmol/L (21.6-31.8); Chloride 97 mmol/L (96-109); Glucose 90 mg/dL (70-110); Potassium 3.6 mmol/L (3.5-5.5); Sodium 142 mmol/L (135-145)
== END | disposition home or self-care (01) ==
LOC: LABWHC1 14:22
PROVIDERS: ATTEND Internal Medicine
DX: R60.0 Localized edema (principal)
CPT/HCPCS: 36415; 80048

== ENCOUNTER → 2024-08-30 | Outpatient (CLI) | payer MEDICARE ==
[2024-08-30 15:13] LABS: Chloride 97 mmol/L (96-109); Potassium 3.4 mmol/L (3.5-5.5); Sodium 141 mmol/L (135-145)
[2024-08-30 21:46] LABS: HCT 32.2 % (39.6-50.0); HGB 10.7 g/dL (13.0-17.0); MCH 33.2 pg (27.0-32.0); MCHC 33.2 g/dL (32.0-37.0); Mean Platelet Volume 10.9 FL (9.5-12.2); NRBC Per 100 WBC 0 X 10*3/uL (0.00-0.01); Platelet Count 279 X 10*3/uL (140-440); RBC 3.22 X 10*6/uL (4.40-5.60); WBC 6.51 X 10*3/uL (4.50-10.00)
== END | disposition home or self-care (01) ==
LOC: LABPAT 10:33
PROVIDERS: ATTEND Internal Medicine
DX: Z01.812 Encounter for preprocedural laboratory examination (principal); I50.32 Chronic diastolic (congestive) heart failure
CPT/HCPCS: 80051; 82565; 84520; 85027

== ENCOUNTER 2024-09-12 10:13 | Day surgery (SDC) | payer MEDICARE ==
[2024-09-06 10:48] VITALS: BMI 31.2
[~2024-09-12 10:13] MED LIST changes: +ALPRAZolam 0.25 MG TAB PO PRN; +ALPRAZolam 0.5 MG TAB PO PRN; -GABAPENTIN 300 MG CAP PO PRN; +HEPARIN SODIUM,PORCINE (1 ML) 2,500 UNIT in SODIUM CHLORIDE 0.9% 250 ML IRRIGATION PRN; +HEPARIN SODIUM,PORCINE 10,000 UNIT in SODIUM CHLORIDE 0.9% 1,000 ML IRRIGATION PRN; -HYDROmorphone 0.5 MG/0.5 ML SYRINGE IVP PRN; +NITROGLYCERIN SL TABS 0.4 MG TAB SUBLINGUAL PRN; -TRANEXAMIC 1,000 MG/100ML-NACL 1,000 MG in SALINE 1 100ML.BAG IVPB PRN
[2024-09-12] MEDS: IV FLUID CONTINUATION 1,000 ML IV ONE (10:50)
[2024-09-12] MEDS: SODIUM CHLORIDE 0.9% 1,000 ML in EMPTY BAG 1 BAG IV SCH (10:53)
[2024-09-12 10:59] LABS: Anisocytosis Slight; Basophils % (A) 0 %; Eosinophils # (A) 0.2 k/uL (0-0.7); Eosinophils % (A) 2 %; HCT 32.3 % (39.0-53.0); HGB 11.1 gm/dL (13.0-17.5); Lymphocytes % (A) 10 %; MCH 33.1 pg (25.0-35.0); MCHC 34.3 g/dL (31.0-37.0); MCV 96.5 fL (80.0-100.0); Macrocytosis Slight; Mean Platelet Volume 7.9; Monocytes # (A) 0.5 k/uL (0-1.0); Monocytes % (A) 5 %; Neutrophils # (A) 7.7 k/uL (1.3-7.7); Neutrophils % (A) 82 %; Platelet Count 282 k/uL (150-450); Poikilocytosis Slight; RBC 3.35 m/uL (4.30-5.90); RDW 17.1 % (11.5-15.5); WBC 9.4 k/uL (3.8-10.6)
[2024-09-12] MEDS: ASPIRIN 325 MG TAB PO STA (11:04)
[2024-09-12] MEDS: ATORVASTATIN 80 MG TAB PO STA (11:04)
[2024-09-12 11:18] LABS: African American GFR (CKD) >90 (>60 ml/min/1.73 sqM); Anion Gap 8 mmol/L; Blood Urea Nitrogen 26 mg/dL (9-20); Carbon Dioxide 38 mmol/L (22-30); Chloride 89 mmol/L (98-107); Glucose 108 mg/dL (74-99); Non-African American GFR(CKD) 89 (>60 ml/min/1.73 sqM); Potassium 2.9 mmol/L (3.5-5.1); Sodium 135 mmol/L (137-145)
[2024-09-12] MEDS: HYDROcodone/APAP 10-325MG 1 EACH TAB PO PRN (17:22)
[2024-09-12] MEDS: fentaNYL (PF) 50 MCG/ML 2 ML AMP IVP ONE (17:56)
[2024-09-12] MEDS: MIDAZOLAM 2 MG/2 ML VIAL IVP ONE (17:56)
[2024-09-12] MEDS: LIDOCAINE 1% INJ 10MG/ML (20 ML MDV) SQ ONE (17:57)
[2024-09-12] MEDS: VERAPAMIL SYRINGE (5 MG/10 ML) INTRAARTER ONE (18:00)
[2024-09-12] MEDS: HEPARIN SODIUM 1,000 UN/ML (10ML VL) IVP ONE (18:10)
[2024-09-12] MEDS: IOPAMIDOL-370 100ML BTL INJ ONE (18:16)
[2024-09-12 18:22] LABS: O2 Sat Blood Gas 63.8 %
[2024-09-12 18:28] LABS: O2 Sat Blood Gas 58.3 %
[2024-09-12 18:29] LABS: O2 Sat Blood Gas 88.9 %
[2024-09-12] MEDS ORDERED: RX INFO: IV CONTRAST WAS GIVEN 1 EACH MISC MISCELLANE PRN (20:24)
[2024-09-12 20:32] VITALS: RESP 17; TEMP 97.7
--- NOTE | 2024-09-12 22:00 | P.CARDCATH ---
Description of Procedure: PROCEDURES PERFORMED: Left and right heart catheterization, bilateral coronary angiography, ultrasound guided arterial access INDICATION: CHF, edema, NYHA class 3 SOB with exertion, cardiomyopathy CONSENT:I have discussed the risks, benefits and alternative therapies for the above-mentioned procedure and for both sedation/analgesia as well as necessary blood product administration, if indicated, as they pertain to this patient. The patient has indicated understanding and acceptance of the risks and procedures discussed. PROCEDURE: After the risks, benefits and alternatives of the above mentioned procedure explained in detail with the patient, informed consent was obtained. Patient was taken to the catheterization lab and prepped and draped in usual fashion. Ultrasound guidance was used to assess for arterial access. 1% lidocaine was used to anesthetize the right radial artery and right brachial area. A 6-Mongolian sheath was placed in the right radial artery and right brachial vein using modified Seldinger technique and ultrasound guidance. A 6 Fr [place] Bright catheter was placed in the RA, RV, PA and PCWP and pressure measurements and oxygen saturations were obtained. Thermodilution was performed. Left coronary angiography was performed with a 5-Mongolian JL 3.5 catheter and right coronary angiography was performed with a 5-FrenchFR5 catheter in various views. A 5-Mongolian FR5 catheter was inserted into the left ventricle and pressure measurements were obtained. The right radial sheath was removed and a TR band was placed with hemostasis achieved. The patient tolerated the procedure well. Patient was transported back to the post catheterization holding area in stable condition. Conscious Sedation: Patient was monitored under the direct supervision of myself for conscious sedation using Versed and fentanyl for a total duration of 19 minutes HEMODYNAMICS: Ao: 109/51 LV: 104/1, LVEDP 10 PCWP: 3 PA: 24/5 RV: 29/5 RA: 3 RA oxygen saturation: 64% PA oxygen saturation: 58% Right radial oxygen saturation: 89% CO by ASAD: 8.6 L/min CI by ASAD: 3.5 L/min/m2 CO by thermodillution: 7.6 L/min CI by thermodilution: 3.1 L/min/m2 SELECTIVE CORONARY ARTERIOGRAPHY: LEFT MAIN: The left main is a large caliber vessel which trifurcates into the LAD ramus and circumflex. There is no significant stenosis. LEFT ANTERIOR DESCENDING CORONARY ARTERY: LAD is a large caliber vessel which wraps around to the apex. There are mild luminal irregularities RAMUS INTERMEDIUS: There is no significant stenosis LEFT CIRCUMFLEX CORONARY ARTERY: Left circumflex is a moderate caliber vessel without significant stenosis. RIGHT CORONARY ARTERY: The right coronary artery is a large caliber vessel which gives off a PDA and PLV branch and is the dominant vessel. There is no significant stenosis. FINAL IMPRESSION: 1. Relatively normal coronary arteries other than mild luminal irregularities of the LAD with 10% stenosis 2. Low normal left and right sided filling pressures 3. Normal CO/CI PLAN: 1. Aggressive risk factor modification per most recent ACC/AHA guidelines. 2. Low normal left and right sided filling pressures. Evaluate other etiologies of lower extremity edema which is not consistent with heart failure based off todays readings.
[2024-09-12 23:07] VITALS: BP 111/65; PULSE 57
== END 2024-09-13 00:03 | disposition home or self-care (01) ==
LOC: CATHCVL 10:13 → 6NMEDSUR 18:18 → CATHCVL 09-13 00:03
PROVIDERS: ATTEND Internal Medicine
DX: I25.10 Atherosclerotic heart disease of native coronary artery without angina pectoris (principal); I48.0 Paroxysmal atrial fibrillation; I11.0 Hypertensive heart disease with heart failure; I50.22 Chronic systolic (congestive) heart failure; I42.0 Dilated cardiomyopathy; E78.00 Pure hypercholesterolemia, unspecified; I71.21 Aneurysm of the ascending aorta, without rupture; M06.9 Rheumatoid arthritis, unspecified; K51.90 Ulcerative colitis, unspecified, without complications; R00.1 Bradycardia, unspecified; Z79.631 Long term (current) use of antimetabolite agent; Z79.01 Long term (current) use of anticoagulants; Z79.899 Other long term (current) drug therapy
CPT/HCPCS: 93460; 80048; 85018; 82810; 85025; C1769; C1894; C1751; J2250; J2003; J3010; J1644; Q9967

== ENCOUNTER → 2025-02-13 | Outpatient (CLI) | payer MEDICARE ==
--- NOTE | 2025-02-13 15:06 | XR ---
EXAMINATION TYPE: XR foot complete RT DATE OF EXAM: 02/13/2025 12:42 PM COMPARISON: None. CLINICAL INDICATION: Male, 74 years old with history of S91.301A UNSPECIFIED OPEN WOUND, RIGHT FOOT, INITI, pain TECHNIQUE: 3 view(s) obtained. FINDINGS: Structures are osteoporotic. This may be occult fracture identification difficult. No acute displaced fracture is not identified. Joint spaces appear preserved. There is diffuse soft t issue prominence. There is flattening of the plantar arch. Attention is paid to the second digit. On the oblique view only may be some cortical erosion of the t uft. Clinical correlation for osteomyelitis is recommended. Follow up exams can be performed 7-10 days from acute trauma for continued pain. IMPRESSION: 1. There may be a cortical erosion of the distal tuft second digit which could suggest underlying os teomyelitis. Three-phase bone scan can be utilized for confirmation. 2. Osteoporosis. This could be confirmed with bone density [facility], , 02/13/2025 3:04 PM
== END | disposition home or self-care (01) ==
LOC: RADXRMAIN 12:13
PROVIDERS: ATTEND Student in an Organized Health Care Education/Training Program
DX: S91.301A Unspecified open wound, right foot, initial encounter (principal); M81.0 Age-related osteoporosis without current pathological fracture; X58.XXXA Exposure to other specified factors, initial encounter